=== PATIENT | female | born 1990 | race Caucasian/White ===

== ENCOUNTER 2020-12-16 13:50 | Emergency (ER) | payer OTHER, SELFPAY ==
[2020-12-16 13:51] VITALS: BP 105/74; PULSE 94; RESP 16; TEMP 36.7; O2SAT 97; BMI 20.9
--- NOTE | 2020-12-16 15:07 | EX.ED.VIS.EY ---
HPI History of Present Illness Chief Complaint: Vision Prob Narrative Narrative: Patient presenting for evaluation secondary to changes in the left eye. Patient states that today she has been having intermittent issues where she will have blurry vision, hazy vision, and complete loss of the vision in her left eye. These are nonpainful, the last for a couple of seconds at a time. Patient states that it does not have any sort of exacerbating relieving factors. She denies headache associated with it. No recent head or neck injury, no head or neck pain. She denies any neurologic signs or symptoms such as numbness, weakness, or speech difficulty. She denies any personal history of heart arrhythmias, bleeding issues or clotting issues. No skin rashes noted. Patient does report that she had a distant history of migraines but typically does not have an issue with these. She is never really had similar episodes in the past. She states that occasionally there will be a slight aura of flashing lights before this occurs. [facility] Medical History Migraines Social History Smoking Status: Never smoker ROS ROS ED Constitutional Constitutional ED: Denies chills or fever(s) Eyes Eyes: Reports change in vision; Denies diplopia ENT ENT ED: Denies rhinorrhea Cardiovascular Cardiovascular: Denies chest pain Respiratory/Chest Respiratory/Chest: Denies cough or dyspnea Gastrointestinal Gastrointestinal: Denies abdominal pain, diarrhea, nausea or vomiting Genitourinary Genitourinary ED: Denies dysuria or hematuria Musculoskeletal Musculoskeletal: Denies back pain Integumentary Denies rash Neurologic Neurologic: Denies paresthesias or weakness Psychiatric Psychiatric: Denies depression Endocrine Endocrinology: Denies fatigue Allergic/Immunologic Allergic/Immunologic ED: Denies urticaria EXAM Physical Exam Const Vital Signs: 12/16/20 13:51 Temperature 98.1 F Temperature Source Temporal Pulse Rate 94 Respiratory Rate 16 Blood Pressure 105/74 Blood Pressure Mean 84 Pulse Ox 97 Oxygen Delivery Method Room Air Positive well nourished and well developed General Appearance ED: well developed and NAD HEENT Reports moist mucous membranes HEENT Narrative: No carotid bruits noted Negative for trauma or tenderness Eyes EOMs intact bilaterally General Eye ED: Yes normal appearance of both eyes and normal light reflex Visual Acuity: acuity normal Visual Field: No peripheral vision loss, No central vision loss, No left visual field cut, No right visual field cut, No bitemporal visual field cut, No binasal visual field cut and No visual field cut by quadrant Alignment: alignment normal Periorbital: periorbital findings normal Eyelid: eyelids normal Conjunctiva: conjunctiva normal Sclera: sclera normal Cornea: cornea normal Pupil: PERRL EOM: Negative for EOM abnormal Direct Ophthalmoscopy: No papilledema, fundi normal bilaterally, anterior chamber normal and No photophobia Neck no lymphadenopathy, supple and no JVD Chest Wall inspection of chest normal Resp normal respiratory effort and clear to auscultation bilaterally Cardio regular rate, regular rhythm, no murmurs and peripheral pulses 2+ throughout GI normal to inspection, nondistended, normoactive bowel sounds, non-tender and no masses Palpation: soft Back/Spine normal to inspection Extremity normal to inspection General Extremety ED: Negative for tenderness Neuro oriented x3 and no sensory deficits noted Sensorium / Orientation: alert Motor Exam: strength 5/5 throughout Psych mental status grossly normal Skin no rashes or lesions noted MDM MDM MDM Narrative Medical decision making narrative: Patient presented secondary to vision changes. Ocular exam was found to be unremarkable. Patient does not have any temporal artery tenderness, she has a normal-appearing retina, she has normal visual de [place] paz. Patient does not seem to be at risk for amaurosis. This does not seem to be a presentation that would be consistent with a retinal vein or artery occlusion. Likewise the patient does not seem to have risk factors for paradoxical clots, temporal arteritis, retinal detachment or other serious etiology. I discussed patient's case with Dr. 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 Patient was given reassurance. Patient is from out of town, she states she will follow-up with an criminal research specialist closer to home. Patient was discharged in stable condition. Discharge Plan Triage Chief Complaint: Vision Prob ED Provider: Damian Manning Dx/Rx/DC Orders Clinical Impression: Ocular migraine Instructions: Headache Migraine Triggers Prevent Activity Restrictions/Additional Instructions: [facility] [phone] Followup this week Disposition Disposition: Home, Self Care Discharge Date/Time: 12/16/20 15:09
--- NOTE | 2020-12-16 15:08 | ED.RN ---
Pt walks out without receiving dc instructions
== END 2020-12-16 15:09 | disposition home or self-care (01) ==
LOC: ED 14:44
PROVIDERS: Emergency Provider Emergency Medicine
DX: G43.109 Migraine with aura, not intractable, without status migrainosus (principal)
CPT/HCPCS: 99282

== ENCOUNTER 2022-08-28 17:24 | Emergency (ER) | payer OTHER, SELFPAY ==
[2022-08-28 17:25] VITALS: BP 103/71; PULSE 98; RESP 16; TEMP 36.4; O2SAT 97; BMI 21.6
[2022-08-28] MEDS: 0.9% Normal Saline 1,000 ML 1000 ML IV (18:17)
[2022-08-28] MEDS: Ondansetron 4 MG/2 ML Vial IV (18:18)
[2022-08-28] MEDS: Metoclopramide 10 MG/2 ML Vial IV (18:18)
[2022-08-28 18:49] LABS: Absolute Lymphocyte Count 0.91 X10^3/uL (0.83-4.51); Basophil# 0.04 X10^3/uL; Basophil% 0.6 % (0-1); Eosinophil# 0.03 X10^3/uL; Eosinophils% 0.4 % (0-5); Hematocrit 41.7 % (37-47); Hemoglobin 14.2 g/dL (12.0-15.0); Lymphocyte # 0.91 X10^3/ul (0.83-4.51); Lymphocyte % 13.5 % (19-41); Mean Corp Hgb Conc 34.1 g/dL (32-36); Mean Corpuscular Hgb 32.2 pg (27.0-32.0); Mean Corpuscular Volume 94.6 fL (81-99); Mean Platelet Vol. 9.5 fl (6.2-12.0); Monocyte# 0.66 X10^3/uL; Monocyte% 9.8 % (0-10); NRBC Flagged by Analyzer 0 % (0-5); Neutrophil # 5.02 X10^3/uL (2.7-7.7); Neutrophil % 74.4 % (47-70); Platelet Count 234 K/mm3 (150-450); RBC Distribution Width CV 13.8 % (11.6-14.6); RBC Distribution Width SD 48.2 fl (35.1-43.9); Red Blood Count 4.41 M/mm3 (4.2-5.4); White Blood Count 6.8 K/mm3 (4.4-11.0)
--- NOTE | 2022-08-28 18:59 | EX.ED.DYSGE1 ---
HPI History of Present Illness Chief Complaint: Nausea/Vomiting/Diarrhea Informant: patient and parent Narrative Narrative: Patient is a 32-year-old female who is presenting to the ER today with chief complaint of nausea, vomiting, and loose stool for the past 3 days. Patient is 25 weeks . Patient is a G2, P1. Patient has no pelvic pain, no vaginal bleeding, no concerns about the baby. Patient's baby has still been moving very vigorously. Patient is having intermittent lightheaded dizziness, no vertigo. Patient feels dehydrated. Patient says he has not been able to hold on any liquids for the past 3 days. Patient has Zofran ODT at home that she has been using with no relief in the past few days. Patient not been able to hold any liquids today, and she took 2 Zofran this morning. Patient is here for dehydration. No other acute complaints. No headache, neck pain. No chest pain or shortness of breath. Patient's became sick on Friday as well with this patient. No other sick contacts the patient is aware of. [facility] Medical History Migraines Home Medications cephalexin 500 mg capsule 500 mg PO Q12 #10 CAPSULES 08/28/22 [Rx Last Taken Unknown] ondansetron 4 mg disintegrating tablet 4 mg PO Q8H PRN PRN Nausea #10 tabs 08/28/22 [Rx Last Taken Unknown] promethazine 25 mg rectal suppository 25 mg DC Q6H #6 ea 08/28/22 [Rx Last Taken Unknown] Allergy/AdvReac Type Severity Reaction Status Date / Time No Known Allergies Allergy Verified 08/28/22 17:26 Social History Smoking Status: Never smoker ROS ROS ED ROS Narrative REVIEW OF SYSTEMS: Unless otherwise stated in this report the patient's positive and negative responses for review of systems for constitutional, eyes, ENT, cardiovascular, respiratory, gastrointestinal, neurological, , musculoskeletal, and integument systems and related systems to the presenting problem are either stated in the history of present illness or were not pertinent or were negative for the symptoms and/or complaints related to the presenting medical problem. EXAM Physical Exam Narrative Exam Narrative: Vital signs reviewed and patient is not hypoxic. General: The patient appears well and in no apparent distress. Patient is resting comfortably on cart. Not toxic, lethargic, or listless. Skin: Warm, dry, no pallor noted. There is no rash noted. Head: Normocephalic, atraumatic Eye: Normal conjunctiva, no drainage, EOMI. PERRL. Ears, Nose, Mouth, and Throat: oral mucosa is moist. Nares patent. Mouth without vesicles. Ear canals patent. Tm's without Erythema Cardiovascular: Regular Rate and Rhythm, no murmurs, gallops, or rubs Respiratory: Patient is in no distress, no accessory muscle use, lungs are clear to auscultation, no wheezing, rales or rhonchi Back: non-tender, no CVA tenderness bilaterally to percussion. NO CTLS midline or paracervicl tenderness to palpation. GI: Soft, patient has gravid uterus, states she is approximately 25 weeks . No tenderness to palpation to abdomen, no flank pain bilateral, no suprapubic tenderness to palpation, otherwise no tenderness to palpation, no masses appreciated. No rebound, guarding, or rigidity noted. Musculoskeletal: The patient has full range of motion of all extremities and joints with no difficulty. Patient has no motor, no sensory deficits. Neurological: A&O x4, normal speech, no focal neurological deficits. Psychiatric: Cooperative Const Vital Signs: 08/28/22 17:25 Temperature 97.5 F L Temperature Source Temporal Pulse Rate 98 Respiratory Rate 16 Blood Pressure 103/71 Blood Pressure Mean 81 Pulse Ox 97 Oxygen Delivery Method Room Air [facility] Lab Data Labs: Laboratory Results - last 24 hr 08/28/22 08/28/22 08/28/22 18:15 18:15 19:30 WBC 6.8 RBC 4.41 Hgb 14.2 Hct 41.7 MCV 94.6 MCH 32.2 H MCHC 34.1 RDW Std Deviation 48.2 H RDW Coeff of Haresh 13.8 Plt Count 234 MPV 9.5 Immature Gran % (Auto) 1.300 H Neut % (Auto) 74.4 H Lymph % (Auto) 13.5 L [place] % (Auto) 9.8 Eos % (Auto) 0.4 Baso % (Auto) 0.6 Absolute Neuts (auto) 5.0 Absolute Lymphs (auto) 0.91 Nucleated RBC % 0 Sodium 138 Potassium 3.5 Chloride 107 Carbon Dioxide 21.0 Anion Gap 10 BUN 16 Creatinine 0.62 Estim Creat Clear Calc 109.75 Est GFR (MDRD) Af Amer 147 Est GFR (MDRD) Non-Af 121 BUN/Creatinine Ratio 26.0 H Glucose 79 Calcium 8.5 Total Bilirubin 0.40 AST 16 ALT 16 Alkaline Phosphatase 65 Total Protein 6.2 L Albumin 2.6 L Globulin 3.6 Albumin/Globulin Ratio 0.7 L Lipase 91 Urine Color Yellow Urine Clarity Clear Urine pH 6.0 Ur Specific [place] 1.025 Urine Protein 30 H Urine Glucose (UA) Normal Urine Ketones 150 A* Urine Occult Blood 10 H Urine Nitrite Negative Urine Bilirubin 1 H Urine Urobilinogen 1 H Ur Leukocyte Esterase 25 H Urine RBC 0-5 SEEN Urine WBC 5-10 SEEN Ur Squamous Epith Cells 5-10 SEEN Urine Bacteria 1+ Urine Mucus 0 SEEN Differential Diagnosis Abdominal Pain: UTI Differential Diagnosis: Nausea, vomiting, diarrhea, flulike symptoms, UTI, Treatment and Re-Evaluation Comments:: Patient was given 1 L of IV fluids. Patient was given IV Zofran 4 mg and IV Reglan 10 mg. Patient has CBC, CMP and lipase along with urine done. Patient has been able to hold ice chips and and feels better after IV fluids and medication. Patient's urine has bacteria, epithelial cells, along with dehydration and proteinuria. Patient will be placed on a 5-day course of Keflex, urine culture is ordered. Patient felt better after 1 L of IV fluids, she was given a second liter of IV fluids secondary to the ketones in her urine. Patient will be sent home with Phenergan suppositories to use as needed to help with nausea along with refill of her Zofran ODT. Patient be sent home with 5 days of Keflex prescription. Patient will follow-up with OB if any other acute concerns. No questions at discharge. Mother's been at bedside Discharge Plan Triage Chief Complaint: Nausea/Vomiting/Diarrhea ED Provider: Lucas Ferris Dx/Rx/DC Orders Clinical Impression: Nausea and vomiting, Diarrhea, , Dehydration, mild, UTI (urinary tract infection) Instructions: ED Diet Vomiting Diarrhea, ED Vomiting and Diarrhea ... Prescriptions: New promethazine 25 mg suppository 25 mg DC Q6H Qty: 6 0RF ondansetron 4 mg tablet,disintegrating 4 mg PO Q8H PRN PRN (Reason: Nausea) Qty: 10 0RF cephalexin [cephalexin] 500 mg capsule 500 mg PO Q12 Qty: 10 0RF Primary Care Provider: Care Physician,No Primary Referrals: Care Physician,No Primary [Primary Care Provider] - Activity Restrictions/Additional Instructions: Increase fluids at home. Use Keflex for the next 5 days. Use Zofran ODT as needed, also Phenergan suppositories could be used along with Zofran if needed. Increase Gatorade or Powerade. Increase water. Follow-up with PLANT OPERATIONS MANAGER. Disposition Disposition: Home, Self Care
[2022-08-28 19:10] LABS: ALB/GLOB Ratio 0.7 RATIO (0.9-2.4); AST(SGOT) 16 U/L (15-37); Alanine Aminotransfer ALT/SGPT 16 U/L (13-56); Albumin, Serum 2.6 g/dL (3.2-5.0); Alkaline Phosphatase 65 U/L (45-117); Anion Gap 10 (5-15); BUN 16 mg/dL (7-18); Calcium,Total 8.5 mg/dL (8.5-10.1); Chloride 107 mmol/L (98-107); Creatinine, Serum 0.62 mg/dL (0.55-1.02); EST Glomerular Filtration Rate 121 mL/min (>60); Est Glom Filt Rate - Afr Amer 147 mL/min (>60); Estimated Creatinine Clearance 109.75 ml/min; Globulin 3.6 g/dL (2.2-4.2); Glucose 79 mg/dL (74-106); Lipase 91 U/L (73-393); Potassium 3.5 mmol/L (3.5-5.1); Protein, Total 6.2 g/dL (6.4-8.2); Sodium Level 138 mmol/L (136-145)
[2022-08-28 19:36] LABS: Mucous, Urine 0 SEEN /hpf (<or=2+)
[2022-08-28] MEDS: 0.9% Normal Saline 1,000 ML 999 ML IV (19:37)
[2022-08-28 19:40] LABS: Color, Urine Yellow (Yellow); Glucose, Dipstick Normal (Normal); Leukocyte Esterase-Dipstick 25 /ul (Negative); Nitrite-Dipstick Negative (Negative); Occult Blood-Urine 10 /ul (Negative); Protein-Dipstick 30 mg/dl (Negative); Specific Gravity, Urine 1.025 (1.002-1.030); Urine Clarity Clear (Clear); Urine Urobilinogen 1 mg/dl (Normal)
[2022-08-28 19:48] LABS: Urine Bilirubin Dipstick 1 mg/dL (Negative)
[2022-08-28 19:50] LABS: Ketone-Dipstick 150 mg/dl (Negative); Squamous Epithelial Cells - UA 5-10 SEEN /hpf (5-10)
[2022-08-28 19:51] LABS: Bacteria 1+ /hpf (None Seen); Red Blood Cells-Urine 0-5 SEEN /hpf (0-5); White Blood Cells 5-10 SEEN /hpf (0-5)
--- NOTE | 2022-08-28 20:08 | CM.ED ---
Social Work Note Referral Source: case find Referral Reason: no PCP SW met with patient and patient's guest and introduced herself and role as [facility] Technology Support Analyst. Patient agreed to speak with social work with patient's guest present. SW inquired about patient's insurance and current PCP. Patient verified insurance and reports no current PCP. SW provided patient with a list of PCPs accepting new patients in network with patient's insurance within 20 miles from her home. Patient was receptive towards list and reports no other needs. SW remains available if needs arise. Shamika Virk DESKTOP PUBLISHER, JAMILA
[2022-08-28 20:30] VITALS: BP 110/78; PULSE 67; RESP 17; O2SAT 100
== END 2022-08-28 20:31 | disposition home or self-care (01) ==
PROVIDERS: Emergency Provider Emergency Medicine; Visit Provider Emergency Medicine
DX: O21.9 Vomiting of pregnancy, unspecified (principal); Z3A.25 25 weeks gestation of pregnancy; O99.282 Endocrine, nutritional and metabolic diseases complicating pregnancy, second trimester; E86.0 Dehydration; R19.7 Diarrhea, unspecified; O23.42 Unspecified infection of urinary tract in pregnancy, second trimester; O99.891 Other specified diseases and conditions complicating pregnancy
CPT/HCPCS: 80053; 81001; 83690; 85025; 87086; 87088; 96361; 96374; 96375; 99283; J7030; J2405

== ENCOUNTER 2022-12-19 07:08 | Inpatient (IN) | payer OTHER, SELFPAY ==
[2022-12-19] VITALS (20 sets, daily range): BP systolic 85–112; BP diastolic 47–65; PULSE 60–96; RESP 16; TEMP 36.7–37.4; O2SAT 95–100; BMI 25.4
[2022-12-19] MEDS: Lactated Ringers 1,000 ML 50 ML IV (07:54)
[2022-12-19] MEDS: Oxytocin 15 Units/NS 250ml 15 UNITS/250 ML IV.SOLN 2 UNITS IV (07:55)
[2022-12-19 08:10] LABS: Absolute Lymphocyte Count 1.56 X10^3/uL (0.83-4.51); Absolute Neutrophil Count 8.6 X10^3/uL (2.0-7.7); Basophil# 0.05 X10^3/uL; Basophil% 0.4 % (0-1); Eosinophil# 0.16 X10^3/uL; Eosinophils% 1.4 % (0-5); Hematocrit 36.6 % (37-47); Hemoglobin 12.2 g/dL (12.0-15.0); Lymphocyte # 1.56 X10^3/ul (0.83-4.51); Lymphocyte % 13.5 % (19-41); Mean Corp Hgb Conc 33.3 g/dL (32-36); Mean Corpuscular Hgb 31.8 pg (27.0-32.0); Mean Corpuscular Volume 95.3 fL (81-99); Mean Platelet Vol. 10.6 fl (6.2-12.0); Monocyte# 1.01 X10^3/uL; Monocyte% 8.7 % (0-10); NRBC Flagged by Analyzer 0 % (0-5); Neutrophil # 8.64 X10^3/uL (2.7-7.7); Neutrophil % 74.6 % (47-70); Platelet Count 202 K/mm3 (150-450); RBC Distribution Width CV 13.5 % (11.6-14.6); RBC Distribution Width SD 46.5 fl (35.1-43.9); Red Blood Count 3.84 M/mm3 (4.2-5.4); White Blood Count 11.6 K/mm3 (4.4-11.0)
--- NOTE | 2022-12-19 08:35 | PCM.HP.OB ---
HPI - General General Date of Admission: 12/19/22 HPI Narrative CATHY BALLESTEROS, is a 32 F who presents for induction. Maternal Data Information Final DEAN: 12/11/22 Gestational age: 41&1 PFSH PFSH Medical History (Updated 12/19/22 @ 08:[address] Brijesh Biswas MD) Anxiety History of hypothyroidism Migraines PCOS (polycystic ovarian syndrome) Medical History no medical history Home Medications cephalexin 500 mg capsule 500 mg PO Q12 no longer taking #10 CAPSULES 08/28/22 [Rx Last Taken Unknown] ondansetron 4 mg disintegrating tablet 4 mg PO Q8H PRN PRN Nausea #10 tabs 08/28/22 [Rx Last Taken Unknown] promethazine 25 mg rectal suppository 25 mg [place] Q6H no longer taking #6 ea 08/28/22 [Rx Last Taken Unknown] Allergy/AdvReac Type Severity Reaction Status Date / Time No Known Allergies Allergy Verified 12/19/22 07:47 Surgical History (Updated 12/19/22 @ 08:[address] Brijesh Biswas MD) History of cholecystectomy Social History Smoking Status: Never smoker History Elective abortions Hx Para 1 Spontaneous abortions Hx # Term Pregnancies Ectopic pregnancies Hx # Pregnancies Multiple births # of living children NST FHR Rate Baby A Baseline: 140 Variability:: Moderate Accelerations:: 15 x 15 Decelerations:: Late (only one) Uterine Activity:: none Vital Signs Vital Signs Vital Signs: 12/19/22 07:40 12/19/22 07:40 12/19/22 07:40 Temperature Temperature Source Temporal Pulse Rate 93 Blood Pressure 99/59 L BP Systolic 99 BP Diastolic 59 12/19/22 07:40 Temperature 98.6 F Temperature Source Pulse Rate Blood Pressure BP Systolic BP Diastolic Weight Weight: 143 lb 4.807 oz Body Mass Index (BMI) 25.4 Physical Exam Const alert, oriented x3 and no apparent distress Chest inspection of chest normal GI soft to palpation, non-tender and non-distended Inspection: gravid external exam normal Narrative: cvx - 4/70/-2, AROM blood tinged fluid Labs Labs Labs: Blood Type Pending Antibody Screen Pending Hct 36.6 % (37-47) L Hgb 12.2 g/dL (12.0-15.0) Syphilis Total Ab Non-reactive See [facility] H&P Assessment & Plan (1) Post term , 41 weeks: COMMENT: @ 41&1 PLAN: Plan Admit to L&D Induction - on pitocin & s/p AROM Pain - epidural as desired GBS negative EFW - less than 4500g, patient with adequate pelvis
[2022-12-19 08:44] LABS: Syphilis Antibodies Non-reactive
[2022-12-19] MEDS: Ondansetron 4 MG/2 ML Vial IV (09:45)
[2022-12-19] MEDS: LACTATED RINGERS 500 ML 999 ML IV (11:08)
--- NOTE | 2022-12-19 11:18 | EX.PCM.OBRPT ---
Maternal Data Information Final DEAN: 12/11/22 Gestational age: 41&1 Vaginal Delivery Maternal Presentation Maternal Presentation: Medically Indicated Induction Type of Induction: Pitocin and Amniotomy Medical Reason for Induction: Post term Operative Information Date of Procedure: 12/19/22 Pre-Operative Diagnosis: Post term Post-Operative Diagnosis: Same Surgery / Procedure Performed: Spontaneous Vaginal Delivery Type of Anesthesia: Local with 1% Lidocaine Estimated Blood Loss: 300ml Findings Description of Procedure: Patient prepped & draped when C/C/+2. She pushed well to deliver the head. head gently guided to allow delivery of anterior and posterior shoulders. No excess traction placed on head. Body delivered and 3VC clamped & cut in delayed fashion. Placenta delivered with gentle traction and good uterine tone obtained. Presentation: ATA Amniotic Membrane Rupture Type: Artificial Amniotic Fluid Description: Clear Placental Delivery Description: Expressed Placenta Disposition: [facility] Specimen(s) Removed: Placenta Cord Vessel Description: 3 Vessels Cord Entanglement: Around neck x 1, loose Nuchal Cord Compression: Without compression Infant A Gender: Male (1 minute): 7 (5 minute): 9 Delayed Cord Clamping: Yes Post Vaginal Delivery Medications Given After Delivery: IV Pitocin Episiotomy Description: None Laceration: 2nd degree (perineal - repaired with 3-0 vicryl) Complication Complications: None
[2022-12-19] MEDS: Lidocaine 1% (20 ml mdv) 20 ML Vial INFILT (11:58)
[2022-12-19] MEDS: Oxytocin 15 Units/NS 250ml 15 UNITS/250 ML IV.SOLN 83 UNITS IV (12:20)
[2022-12-19] MEDS: Ibuprofen 600 MG Tablet PO ×2 (13:41→21:43)
[2022-12-19] MEDS: 0.9% Saline Lock 10 ML Syringe IV (16:11)
[2022-12-20 04:10] VITALS: BP 98/56; PULSE 77; RESP 16; TEMP 36.4
[2022-12-20] MEDS: Acetaminophen 500 MG Tablet 1000 MG PO (04:43)
--- NOTE | 2022-12-20 07:53 | PCM.PN.OB ---
Subjective Subjective Patient is doing well without complaints. She is ambulating and voiding without difficulty. She is tolerating regular diet. Lochia is normal. She denies lightheadedness, dizziness, chest pain, shortness of breath, leg pain. She desires to go home today. Objective Data Objective Data Vital Signs: Vital Signs Temp Pulse Resp BP Pulse Ox O2 Del Method 97.6 F L 77 16 98/56 L 100 Room Air 12/20/22 04:10 12/20/22 04:10 12/20/22 04:10 12/20/22 04:10 12/19/22 23:35 12/20/22 04:10 Oxygen Delivery Method Room Air Weight: 143 lb 4.807 oz Body Mass Index (BMI) 25.4 Intake & Output: Intake and Output for Last 24 Hours 12/18/22 12/19/22 12/20/22 23:59 23:59 23:59 Intake Total 1267.11 / 1267.11 Output Total 700 / 700 Balance 567.11 / 567.11 Lab / Micro Data 12/19/22 07:45 Labs: Laboratory Results - last 24 hr 12/19/22 07:45: WBC 11.6 H, RBC 3.84 L, Hgb 12.2, Hct 36.6 L, MCV 95.3, MCH 31.8, MCHC 33.3, RDW Std Deviation 46.5 H, RDW Coeff of Haresh 13.5, Plt Count 202, MPV 10.6, Immature Gran % (Auto) 1.400 H, Neut % (Auto) 74.6 H, Lymph % (Auto) 13.5 L, [place] % (Auto) 8.7, Eos % (Auto) 1.4, Baso % (Auto) 0.4, Absolute Neuts (auto) 8.6 H, Absolute Lymphs (auto) 1.56, Nucleated RBC % 0, Syphilis Total Ab Non-reactive, Blood Type O POSITIVE, Antibody Screen NEGATIVE Physical Exam Const alert and no apparent distress General Appearance: comfortable Assessment & Plan (1) Vaginal delivery: PLAN: Patient is day 1 from a vaginal delivery. She is doing well and meeting milestones for discharge. She requests to go home today.
--- NOTE | 2022-12-20 07:56 | DCINST_ITS ---
Discharge Instructions Diet Discharge Diet: No restrictions Activity Discharge Activity: May Shower May resume sexual activity in: 6 weeks Weight Bearing Status: Weight bearing as tolerated Lifting Restrictions: nothing heavier than baby Dressing / Incision Call your doctor if you observe: Fever of 101 or Higher, Coldness, Increased Pain, Numbness or Tingling, Change in Color, Inability to urinate, Inability to have a bowel movement, Using more than 1 pad per hour, Shortness of breath, Dizziness, Fainting spells, Swelling in the ankles, Chest pain, Increased palpitations (irregular heartbeat), Calf discomfort and Uncontrolled pain Follow Up Care When: 1-2 weeks early 6 week exam Test Results: Test results from this visit will be discussed in further detail at your follow- up appointment, if applicable. Discharge Plan Admission Admit Date/Time: 12/19/22 07:08 Primary Reason for Your Visit: delivery Attending Provider: Brijesh Biswas Primary Care Provider: Geetha Marks Primary Instructions Patient Instructions: After a Vaginal Discharge Orders/Prescriptions Prescriptions: Discontinued promethazine 25 mg suppository 25 mg [place] Q6H Qty: 6 0RF ondansetron 4 mg tablet,disintegrating 4 mg PO Q8H PRN PRN (Reason: Nausea) Qty: 10 0RF cephalexin [cephalexin] 500 mg capsule 500 mg PO Q12 Qty: 10 0RF Referrals / Follow Up: Care Physician,Geetha Primary [Primary Care Provider] - Disposition Disposition (needs filled in before D/C Order can be placed): Home, Self Care
[2022-12-20 10:20] VITALS: BP 95/43; PULSE 90; RESP 16; TEMP 36.8
[2022-12-20 14:30] VITALS: BP 98/53; PULSE 80; RESP 16; TEMP 37.2; O2SAT 96
--- NOTE | 2022-12-20 16:18 | CASEMGMT ---
Social Work Labor and Delivery Unit ? Summary:?Sw consult received due to maternal history of anxiety. - Sw presented to bedside and introduced self to mother of baby (MOB- Ramona) and father of baby (FOB- Claus). - Parents report they are , they have been together for 12 years, they met while working together at [employer]. - Lamar baby, Héctor Weller, is second child to both parents. MOB delivered baby via vaginal delivery. MOB states that delivery went well and they are hoping that she and baby will be ready for discharge sometime today. - MOB states that they have all the necessary supplies that they need for baby incuding: crib, car seat, clothes, diapers and wipes. - Sw asked FOB to leave so sw could discuss mental health history and assess for safety. FOB left respectfully. - MOB completed [place] depression screen, her score was a 6. Sw provdied support and education. Sw provided MOB with list of counseling agencies local to her and encouraged MOB to get connected should symptoms of baby blues/ depression get worse. MOB expressed understanding and agreement. While meeting with MOB privately, MOB stated that she is safe at home, denied concerns of domestic violence or intimate partner violence. - Sw provided education on shaken baby prevention and ABCs of safe sleep. ? Assessment:??Parents receptive to sw involvement and support. Parents have good support system in place at this time. MOB states that she is feeling ok, but is receptive to getting connected to community mental health supports if necessary. ? Intervention:?Education, resources and supports provided. ? Plan:??MOB and baby to be discharged when medically ready. ? No other services requested or indicated. Mina Patino, FISH FROG OR OYSTER FARMER, MANAGER THERAPY
== END 2022-12-20 16:55 | disposition home or self-care (01) | DRG 807 ==
PROVIDERS: Obstetrics & Gynecology; Admitting Provider Obstetrics & Gynecology; Referring Provider Obstetrics & Gynecology; Visit Provider Obstetrics & Gynecology
DX: O48.0 Post-term pregnancy (principal); Z37.0 Single live birth; O69.81X0 Labor and delivery complicated by cord around neck, without compression, not applicable or unspecified; Z3A.41 41 weeks gestation of pregnancy
CPT/HCPCS: 59025; 59050; 85025; 86780; 86850; 86900; 86901; 99221; J7120; A4216; G0378; J2405

== ENCOUNTER 2024-07-17 12:37 | Emergency (ER) | payer OTHER, SELFPAY ==
[2024-07-17 12:38] VITALS: BP 119/78; PULSE 90; RESP 16; TEMP 36.8; O2SAT 98; BMI 21.2
--- NOTE | 2024-07-17 12:58 | EDS_ITS ---
HPI History of Present Illness Chief Complaint: Nausea/Vomiting Informant: patient and spouse/S.O. Narrative Narrative: 34-year-old female presenting to the emergency room with vomiting. Patient states that she is about 6 weeks . She has an appointment on Friday with Dr. Castro for obstetrics. She is G 3P2. She states she had hyperemesis with #1. She states that earlier this week she called and they put her on folic acid Pepcid and Reglan. She states she stopped the folic acid and Pepcid because it was upsetting her stomach. She denies any current pain. No vaginal bleeding. She notes decreased urination. She states she continues to vomit all times of the day. She states that she was advised that if she continues to vomit that she should come to emergency. [facility] Medical History Vaginal delivery PCOS (polycystic ovarian syndrome) Anxiety History of hypothyroidism Migraines Home Medications ?Medication ?Instructions ?Recorded ?Last Taken ?Type promethazine 25 mg tablet 25 mg PO TID PRN nausea and 07/17/24 Unknown Rx vomiting #20 tabs Allergy/AdvReac Type Severity Reaction Status Date / Time No Known Allergies Allergy Verified 07/17/24 12:39 Surgical History History of cholecystectomy Social History Smoking Status: Never smoker [facility] [place] ED Constitutional Constitutional ED: Denies chills, fever(s) or weight loss Eyes Eyes: Denies change in vision or diplopia ENT ENT ED: Denies ear pain, rhinorrhea or sore throat Cardiovascular Cardiovascular: Denies chest pain, orthopnea, palpitations or racing heartbeat Respiratory/Chest Respiratory/Chest: Denies cough, dyspnea or orthopnea Gastrointestinal Gastrointestinal: Reports nausea and vomiting; Denies abdominal pain or diarrhea Genitourinary Genitourinary ED: Reports other Details: Decreased urination ; Denies dysuria, hematuria or urinary frequency Musculoskeletal Musculoskeletal: Denies arthralgias or myalgias Integumentary Denies abscess or rash Neurologic Neurologic: Denies headache(s) or weakness Psychiatric Psychiatric: Denies anxiety, depression, suicidal ideation or suicidal thoughts Endocrine Endocrinology: Denies polydipsia, polyphagia or polyuria Allergic/Immunologic Allergic/Immunologic ED: Denies mouth swelling, tongue swelling or urticaria EXAM Physical Exam Const Vital Signs: 07/17/24 12:38 Temperature 98.2 F Temperature Source Oral Pulse Rate 90 Respiratory Rate 16 Blood Pressure 119/78 Blood Pressure Mean 91 Pulse Ox 98 Oxygen Delivery Method Room Air Positive well nourished and well developed General Appearance ED: well developed and NAD HEENT Reports normocephalic, head/scalp atraumatic and moist mucous membranes Eyes PERRL and EOMs intact bilaterally Neck no lymphadenopathy, supple and no JVD Resp normal respiratory effort and clear to auscultation bilaterally Cardio regular rate, regular rhythm and no murmurs GI normal to inspection, nondistended, normoactive bowel sounds and non-tender Palpation: soft Back/Spine no CVA tenderness and normal ROM Extremity normal to inspection General Extremety ED: Negative for edema General Extremity: Negative for edema Neuro oriented x3 and CN's II-XII intact bilaterally Sensorium / Orientation: alert Motor Exam: strength 5/5 throughout Psych mental status grossly normal Mood & Affect: Negative for depressed or tearful Skin no rashes or lesions noted and no wounds MDM MDM MDM Narrative Medical decision making narrative: Differential diagnosis includes but not limited viral syndrome hyperemesis gravidarum dehydration electrolyte abnormality acute kidney injury White count 12.4 hemoglobin is 14.8 BMP shows normal BUN creatinine anion gap is 8 CO2 level is 25. Normal LFTs lipase 25 urinalysis demonstrates 150 ketones 30 protein no overt infection. Patient received IV fluids. I spoke with on-call obstetrics for Dr. Castro. They recommended Phenergan. Patient states that this did seem to help center of her stomach. She is trying a popsicle. History & Record Review Discussion w/independent historian: Patient Lab Data Attestation: I reviewed the patient's lab results. Labs: Laboratory Results - last 24 hr 07/17/24 13:05 WBC 12.4 H RBC 4.92 Hgb 14.8 Hct 43.1 MCV 87.6 MCH 30.1 MCHC 34.3 RDW Std Deviation 40.0 RDW Coeff of Haresh 12.4 Plt Count 211 MPV 9.9 Immature Gran % (Auto) 0.600 Neut % (Auto) 82.2 H Lymph % (Auto) 9.6 L [place] % (Auto) 6.3 Eos % (Auto) 1.0 Baso % (Auto) 0.3 Absolute Neuts (auto) 10.2 H Absolute Lymphs (auto) 1.19 Nucleated RBC % 0 Sodium 136 Potassium 3.4 L Chloride 102 Carbon Dioxide 25.0 Anion Gap 8 BUN 18 Creatinine 0.75 Estim Creat Clear Calc 89.08 Est GFR (MDRD) Af Amer 116 Est GFR (MDRD) Non-Af 95 BUN/Creatinine Ratio 24.1 H Glucose 81 Calcium 9.6 Total Bilirubin 0.90 Direct Bilirubin 0.28 AST 18 ALT 24 Alkaline Phosphatase 63 Total Protein 7.8 Albumin 3.7 Globulin 4.1 Lipase 25 L HCG, Quant 580312 H Urine Color Yellow Urine Clarity Sl. Cloudy Urine pH 6.0 Ur Specific [place] 1.025 Urine Protein 30 H Urine Glucose (UA) Normal Urine Ketones 150 A* Urine Occult Blood 10 H Urine Nitrite Negative Urine Bilirubin 1 H Urine Urobilinogen 4 H Ur Leukocyte Esterase 100 H Urine RBC 0 SEEN Urine WBC 0-5 SEEN Ur Squamous Epith Cells 0-5 SEEN Urine Bacteria 0 SEEN Urine Mucus 3+ Discharge Plan Triage Chief Complaint: Nausea/Vomiting ED Provider: Maxim Francisco Dx/Rx/DC Orders Clinical Impression: Hyperemesis gravidarum Instructions: Hyperemesis Gravidarum Prescriptions: New promethazine 25 mg tablet 25 mg PO TID PRN (Reason: nausea and vomiting) Qty: 20 0RF Primary Care Provider: Care Physician,No Primary Referrals: Rashmi Castro DO [Med Staff - Active Staff] - Keep Gavino appointment Care Physician,No Primary [Primary Care Provider] - Print Language: Green[place]ic
[2024-07-17] MEDS: 0.9% Normal Saline (1000mL) 1,000 ML 1000 ML IV (13:11)
[2024-07-17] MEDS: proMETHazine 25 MG Tablet PO (13:12)
[2024-07-17 13:18] LABS: Bacteria 0 SEEN /hpf (None Seen)
[2024-07-17 13:21] LABS: Color, Urine Yellow (Yellow); Glucose, Dipstick Normal (Normal); Leukocyte Esterase-Dipstick 100 /ul (Negative); Nitrite-Dipstick Negative (Negative); Occult Blood-Urine 10 /ul (Negative); Protein-Dipstick 30 mg/dl (Negative); Specific Gravity, Urine 1.025 (1.002-1.030); Urine Clarity Sl. Cloudy (Clear); Urine Urobilinogen 4 mg/dl (Normal)
[2024-07-17 13:22] LABS: Absolute Lymphocyte Count 1.19 X10^3/uL (0.83-4.51); Absolute Neutrophil Count 10.2 X10^3/uL (2.0-7.7); Basophil# 0.04 X10^3/uL; Basophil% 0.3 % (0-1); Eosinophil# 0.12 X10^3/uL; Hematocrit 43.1 % (37-47); Hemoglobin 14.8 g/dL (12.0-15.0); Lymphocyte # 1.19 X10^3/ul (0.83-4.51); Lymphocyte % 9.6 % (19-41); Mean Corp Hgb Conc 34.3 g/dL (32-36); Mean Corpuscular Hgb 30.1 pg (27.0-32.0); Mean Corpuscular Volume 87.6 fL (81-99); Mean Platelet Vol. 9.9 fl (6.2-12.0); Monocyte# 0.78 X10^3/uL; Monocyte% 6.3 % (0-10); NRBC Flagged by Analyzer 0 % (0-5); Neutrophil # 10.17 X10^3/uL (2.7-7.7); Neutrophil % 82.2 % (47-70); Platelet Count 211 K/mm3 (150-450); RBC Distribution Width CV 12.4 % (11.6-14.6); Red Blood Count 4.92 M/mm3 (4.2-5.4); Urine Bilirubin Dipstick 1 mg/dL (Negative); White Blood Count 12.4 K/mm3 (4.4-11.0)
[2024-07-17 13:23] LABS: Ketone-Dipstick 150 mg/dl (Negative)
[2024-07-17 13:27] LABS: Mucous, Urine 3+ /hpf (<or=2+); Squamous Epithelial Cells - UA 0-5 SEEN /hpf (5-10)
[2024-07-17 13:28] LABS: Red Blood Cells-Urine 0 SEEN /hpf (0-5); White Blood Cells 0-5 SEEN /hpf (0-5)
[2024-07-17 13:53] LABS: AST(SGOT) 18 U/L (15-37); Alanine Aminotransfer ALT/SGPT 24 U/L (13-56); Albumin, Serum 3.7 g/dL (3.2-5.0); Alkaline Phosphatase 63 U/L (45-117); Anion Gap 8 (5-15); BUN 18 mg/dL (7-18); BUN/Creat Ratio 24.1 RATIO (10-20); Bilirubin, Direct 0.28 mg/dL (0.00-0.30); Calcium,Total 9.6 mg/dL (8.5-10.1); Chloride 102 mmol/L (98-107); Creatinine, Serum 0.75 mg/dL (0.55-1.02); EST Glomerular Filtration Rate 95 mL/min (>60); Est Glom Filt Rate - Afr Amer 116 mL/min (>60); Estimated Creatinine Clearance 89.08 ml/min; Globulin 4.1 g/dL (2.2-4.2); Glucose 81 mg/dL (74-106); Lipase 25 U/L (73-393); Potassium 3.4 mmol/L (3.5-5.1); Protein, Total 7.8 g/dL (6.4-8.2); Sodium Level 136 mmol/L (136-145)
[2024-07-17 14:07] LABS: hCG Titer Quant., Serum 148061 mIU/mL (1-3)
== END 2024-07-17 14:58 | disposition home or self-care (01) ==
PROVIDERS: Emergency Provider Emergency Medicine; Visit Provider Emergency Medicine
DX: O21.0 Mild hyperemesis gravidarum (principal); Z3A.01 Less than 8 weeks gestation of pregnancy; Z90.49 Acquired absence of other specified parts of digestive tract
CPT/HCPCS: 80048; 80076; 81001; 83690; 84702; 85025; 96360; 99283; A4216

== ENCOUNTER 2025-02-20 02:00 | Inpatient (IN) | payer OTHER, SELFPAY ==
--- OUTSIDE RECORDS SUMMARY | 2025-02-19 23:12 | XMS RPT_ITS | CCD ---
Author Organization [facility] Care Team Providers Care Intelligence Support Officer Name Role Phone KALYAN, PAULETTE B Unavailable Unavailable KALYAN, PAULETTE B Unavailable Unavailable KALYAN, PAULETTE B Unavailable Unavailable KALYAN, PAULETTE B Unavailable Unavailable KALYAN, PAULETTE B Unavailable Unavailable KALYAN, PAULETTE B Unavailable Unavailable Sulove, Saksham Unavailable Unavailable KALYAN, PAULETTE B Unavailable Unavailable KALYAN, PAULETTE B Unavailable Unavailable KALYAN, PAULETTE B Unavailable Unavailable KALYAN, PAULETTE B Unavailable Unavailable Ana Boateng Unavailable Unavailable Unavailable Frida Lieberman Unavailable Unavailable Unavailable Unavailable Unavailable None, No PCP Unavailable Unavailable Ana Boateng CNP Primary Care Provider [phone] Ana Boateng CNP Primary Care Provider [phone] Ana Boateng CNP Primary Care Provider Generic Provider MD, No Assigned Pcp Primary Car e Provider Unavailable [facility] Attending Unavailable GENERIC PROVIDER, NO ASSIGNED PCP Primary Care Unavailable Maxim Francisco Attending Unavailable Care Physician, No Primary Primary Care Unava ilAlfredo Verma MD Primary Care Provider Podlogar SITE CONTROLLER.Jeannie HUDSON Unavailable Ana Boateng CNP Primary Care Provider Podlogar SITE CONTROLLER.Jeannie HUDSON Unavailable Ahmet SITE CONTROLLER.Jasmina HUDSON Unavailable Ahmet SITE CONTROLLER.Jasmina HUDSON Unavailable BURSLEY, CHRISTOPHER B Primary Care Unavailab ETHEL Danielson Attending Unavailable BURSLEY, CHRISTOPHER B Primary Care Unavailab KAROLINE Finch Attending Unavailable BURSLEY, CHRISTOPHER B Primary Care Unavailab le IFEANYI ETHEL Referring Unavailable BOATENG, ANA Primary Care Unavailable ETHEL RUIZ Attending Unavailable BURSLEY, CHRISTOPHER B Primary Care Unavailab JENNY Herman Attending Unavailable BURSLEY, CHRISTOPHER B Primary Care Unavailab YUMIKO Mason Attending Unavailable BOATENG, ANA Primary Care Unavailable RUIZ ETHEL Referring Unavailable BURSLEY, CHRISTOPHER B Primary Care Unavailab le JESSY, MARIELLE Referring Unavailable BURSLEY, CHRISTOPHER B Primary Care Unavailab ANA Odell Attending Unavailable BURSLEY, CHRISTOPHER B Primary Care Unavailab YUMIKO Mason Attending Unavailable BURSLEY, CHRISTOPHER B Primary Care Unavailab JENNY Herman Attending Unavailable KAROLINE BAUTISTA Attending Unavailable BURSLEY, CHRISTOPHER B Primary Care Unavailab le BURSLEY, CHRISTOPHER B Primary Care Unavailab le JESSY, MARIELLE Referring Unavailable BURSLEY, CHRISTOPHER B Primary Care Unavailab le HAURY, JENNY Referring Unavailable BOATENG, ANA Primary Care Unavailable SELF Referring Unavailable JESSY, MARIELLE Attending Unavailable BURSLEY, CHRISTOPHER B Primary Care Unavailab kaleb PODLOGJEANNIE STEWART Attending Unavailable BURSLEY, CHRISTOPHER B Primary Care Unavailab ETHEL Danielson Attending Unavailable JESSY, MARIELLE Referring Unavailable BURSLEY, CHRISTOPHER B Primary Care Unavailab le JESSY, MARIELLE Referring Unavailable BURSLEY, CHRISTOPHER B Primary Care Unavailab ETHEL Danielson Attending Unavailable JESSY, MARIELLE Referring Unavailable BURSLEY, CHRISTOPHER B Primary Care Unavailab ANA Odell Attending Unavailable Allergies Allergy Classification Reported Allergen(s) Allergy Type Date of Onset Reaction(s) Facility (1 source) Dust; Translations: [Dust] Propensity to adverse reactions to drug (disorder) [facility] Repository (1 source) Environmental allergy; Translations: [Environmental] Propensity to adverse reactions (disorder) [facility] Repository (1 source) [facility]; Translations: [Animals] Propensity to adverse reactions to drug (disorder) [facility] Repository (1 source) Pollen; Translations: [Pollen] Propensity to adverse reactions to drug (disorder) [facility] Repository (1 source) Tree; Translations: [Trees] Propensity to adverse reactions to drug (disorder) [facility] Repository (1 source) Sun; Translations: [Sun] Propensity to adverse reactions to drug (disorder) [facility] Rep[facility] (1 source) Grass; Translations: [Grass] Propensity to adverse reactions to drug (disorder) [facility] Repository NEGATED: Highlighted row has been ruled out! (3 sources) natural latex rubber; Translations: [LATEX, NATURAL RUBBER] Drug allergy (disorder) [facility] NEGATED: Highlighted row has been ruled out! (3 sources) No IV Contrast Allergy.; Translations: [IV Dye, Iodine Containing] Drug allergy (disorder) [facility] Medications Current Medications Medication Drug Class(es) Dates Sig (Normalized) Sig (Original) aspirin 81 mg delayed release oral tablet (6 sources) Platelet Aggregation Inhibitor, Nonsteroidal Anti-inflammatory Drug Start: 07-20-2024 End: 09-20-2024 take 1 tablet by mouth once daily aspirin, enteric coated (ECOTRIN LOW STRENGTH) 81 mg EC tablet Indications: with uncertain dates, antepartum (HCC) , 8 weeks gestation of (HCC) , Screen for STD (sexually transmitted disease) Take 1 tablet by mouth once daily. 90 tablet 3 07/20/2024 09/20/2024 Discontinued cephalexin 500 mg oral capsule (1 source) Cephalosporin Antibacterial Start: 08-28-2022 take 500 mg by mouth every twelve hours Cephalexin Active 500 MG PO EVERY 12 HOURS August 28, 2022 12:00am ondansetron 4 mg disintegrating oral tablet (20 sources) Serotonin-3 Receptor Antagonist Start: 07-20-2024 End: 12-22-2024 take 1 tablet by mouth every eight hours as needed ondansetron orally disintegrating (ZOFRAN ODT) 4 mg disintegrating tablet Take 1 tablet by mouth every 8 hours as needed. 20 tablet 1 07/20/2024 12/22/2024 Discontinued (Discontinued by Patient) Start: 08-28-2022 take 4 mg by mouth e very eight hours as needed Ondansetron Active 4 MG PO EVERY 8 HOURS NEEDED August 28, 2022 12:00am Start: 12-01-2019 End: 11-19-2022 take 1 tablet by mouth every eight hours as needed ondansetron (ZOFRAN) 4 mg tablet Take 1 tablet by mouth every 8 hours as needed for nausea/vomiting. 40 tablet 1 06/07/2022 11/19/2022 Discontinued (Course of therapy completed) Comment on above: 1 to 2 tablets PO ev ta 8 hours prn nausea Take 1 tablet by mikael th every 8 hours as needed for nausea/vomiting. vit,thor 74/iron/folic ( VITAMIN 1+1 ORAL) (10 sources) take 1 tablet by mouth once daily vit,thor 74/iron/folic ( VITAMIN 1+1 ORAL) Take 1 tablet by mouth once daily. Active Completed/Discontinued Medications Medication Drug Class(es) Dates Sig (Normalized) Sig (Original) 12 hr doxylamine succinate 20 mg / pyridoxine hydrochloride 20 mg extended release oral tablet (12 sources) take 1 tablet by mouth once daily at bedtime doxylamine-pyridox ine, vit B6, (BONJESTA) 20-20 mg TbID Take 1 tablet by mouth daily at bedtime. 0 Active Comment on above: Take 1 tablet by mikael th daily at bedtime. esomeprazole 40 mg delayed release oral capsule (10 sources) Proton Pump Inhibitor Start: 09-27-2021 take 1 capsule by mouth once daily Esomeprazole Magnesium 40 MG Oral Capsule Delayed Release TAKE ONE (1) CAPSULE BY MOUTH EVERY DAY Quantity: 90 Refills: 1 Ordered: 27-Sep-2021 Alfredo Bowden MD Start : 27-Sep-2021 Active Start: 08-03-2021 take 1 capsule by mo [facility] once daily Esomeprazole Magnesium 40 MG Oral Capsule Delayed Release TAKE ONE (1) CAPSULE BY MOUTH EVERY DAY Quantity: 30 Refills: 0 Ordered: 24-Aug-2021 Alfredo Bowden MD Start : 03-Aug-2021 Active famotidine 40 mg oral tablet (3 sources) Histamine-2 Receptor Antagonist Start: 07-12-2024 End: 08-11-2024 take 1 tablet by mouth once daily famotidine (PEPCID) 40 mg tablet Indications: Nausea and vomiting in , 7 weeks gestation of Take 1 tablet by mouth once daily. 30 tablet 1 07/12/2024 07/20/2024 Discontinued fluticasone propionate 0.05 mg/actuat metered dose nasal spray (5 sources) Corticosteroid Start: 10-25-2020 Fluticasone Propionate 50 MCG/ACT Nasal Suspension INSTILL 2 SQUIRT Every morning Quantity: 1 Refills: 2 Ordered: 25-Oct-2020 Seema Coates Start : 25-Oct-2020 Active Tlldju-S62-[id number] Factor (2 sources) Eezccw-V32-[id number] ns icFactor folic acid 1 mg oral tablet (3 sources) Start: 07-12-2024 End: 07-20-2024 take 1 tablet by mouth once daily folic acid 1 mg tablet Indications: Nausea and vomiting in , 7 weeks gestation of Take 1 tablet by mouth once daily. 30 tablet 2 07/12/2024 07/20/2024 Discontinued ibuprofen 200 mg oral tablet (2 sources) Nonsteroidal Anti-inflammatory Drug take 3 tablets by mouth every six hours as needed for pain ibuprofen 200 mg Tablet, Ordered By: Vivian Rondon MD Directions: 3 tablet oral every six hours PRN FOR MILD PAIN ibuprofen 200 mg / pseudoephedrine hydrochloride 30 mg oral tablet (20 sources) alpha-Adrenergic Agonist, Nonsteroidal Anti-inflammatory Drug Start: 10-25-2020 take 1 tablet by mouth every eight hours Advil Cold/Sinus 30-200 MG Oral Tablet TAKE 1 TABLET Every 8 hours Quantity: 1 Refills: 0 Ordered: 25-Oct-2020 Seema Coates Start : 25-Oct-2020 Active levothyroxine sodium 0.05 mg oral tablet (12 sources) l-Thyroxine take 1 tablet by mouth once daily before breakfast levothyroxine (SYNTHROID) 50 mcg tablet Take 50 mcg by mouth daily before breakfast. 0 Active Comment on above: Take 50 mcg by mouth daily before breakfast. levothyroxine (Synthroid) 50 mcg Tablet Directions: 1 tablet oral daily before breakfast (2 sources) take 1 tablet by mouth once daily before breakfast levothyroxine (Synthroid) 50 mcg Tablet Directions: 1 tablet oral daily before breakfast metoclopramide 10 mg oral tablet (3 sources) Dopamine-2 Receptor Antagonist Start: 07-12-2024 End: 08-11-2024 take 1 tablet by mouth three times daily as needed metoclopramide HCl (REGLAN) 10 mg tablet Indications: Nausea and vomiting in , 7 weeks gestation of Take 1 tablet by mouth three times a day as needed. 90 tablet 07/12/2024 07/20/2024 Discontinued 24 hr NIFEdipine 30 mg extended release oral tablet (19 sources) Dihydropyridine Calcium Channel Jose Start: 02-12-2021 take 1 tablet by mouth once daily NIFEdipine ER 30 MG Oral Tablet Extended Release 24 Hour take 1 tablet by mouth once daily Quantity: 30 Refills: 5 Ordered: 07-Mar-2021 Lupe Lieberman DOita Start : 12-Feb-2021 Active PNV (2 sources) PNV vit calc,iron,folic ( VITAMIN ORAL) (20 sources) End: 07-12-2024 take 1 tablet by mouth once daily vit calc,iron,folic ( VITAMIN ORAL) Take 1 tablet by mouth once daily. 07/12/2024 Discontinued (Course of therapy completed) take 1 tablet by mouth once cinthia y vit calc,iron,folic ( VITAMIN ORAL) Take 1 tablet by mouth once daily. Active take 1 tablet by mouth once cinthia y vit calc,iron,folic ( VITAMIN ORAL) Take 1 tablet by mouth once daily. 0 Active Comment on above: Take 1 tablet by mikael th once daily. promethazine hydrochloride 25 mg oral tablet (20 sources) Phenothiazine Start: 07-17-19 End: 07-20-19 take 1 tablet by mouth every six hours as needed promethazine (PHENERGAN) 25 mg tablet Take 25 mg by mouth every 6 hours as needed. 07/17/2024 07/20/2024 Discontinued Start: 08-28-2022 Promethazine A ctive 25 MG RC EVERY 6 HOURS August 28, 2022 12:00am Start: 05-08-2022 End: 07-12-2024 take 12.5-25 mg by mouth every six hours as needed promethazine (PHENERGAN) 12.5 mg tablet Take 1-2 tablets by mouth every 6 hours as needed. 30 tablet 05/08/2022 07/12/2024 Discontinued (Course of therapy completed) End: 05-08-2022 take 1 tablet by mouth every twelve hours as needed promethazine (PHENERGAN) 25 mg tablet Take 25 mg by mouth every 12 hours as needed. 0 05/08/2022 Discontinued Comment on above: Take 25 mg by mouth every 12 hours as needed. Take 1-2 tablets by mouth every 6 hours as needed. vitamin b6 50 mg oral tablet (14 sources) End: 11-19-2022 pyridoxine, vitamin B6, (VITAMIN B6) 50 mg tablet Take 25 mg by mouth four times daily. 0 11/19/2022 Discontinued (Course of therapy completed) Comment on above: Take 25 mg by mouth four times daily. Problems Active Problems Problem Classification Problem Date Documented Da te Episodic/Chronic Abdominal pain (20 sources) Right upper quadrant pain; Translations: [Abdominal pain, right upper quadrant] Episodic Acute bronchitis (1 source) Acute bronchitis, unspecified; Translations: [Acute bronchitis, unspecified] Onset: 8 Episodic Anxiety disorders (5 sources) Anxiety; Translations: [Anxiety disorder, unspecified] Onset: 4 06-12-2020 Chronic Biliary tract disease (10 sources) Biliary colic; Translations: [Calculus of gallbladder without mention of cholecystitis, without mention of obstruction] Episodic Blindness and vision defects (19 sources) Visual impairment; 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, 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 Esophageal disorders (20 sources) Gastroesophageal reflux disease; Translations: [Esophageal reflux] Onset: 4 03-29-2024 Chronic Fluid and electrolyte disorders (4 sources) Dehydration; Translations: [Mild dehydration] 06-11-2020 Episodic Headache; including migraine (20 sources) Ophthalmic migraine; Translations: [Other forms of migraine, without mention of intractable migraine without mention of status migrainosus] 12-16-2020 Chronic Hemorrhoids (20 sources) Hemorrhoids; Translations: [Unspecified hemorrhoids without mention of complication] Onset: 4 03-29-2024 Episodic Menstrual disorders (20 sources) Dysmenorrhea; Translations: [Dysmenorrhea] Chronic Nausea and vomiting (4 sources) Vomiting; Translations: [Nausea and vomiting] 06-11-2020 Episodic Other complications of (1 source) Mild hyperemesis gravidarum; Translations: [Mild hyperemesis gravidarum] Onset: 5 Episodic Other ear and sense organ disorders (1 source) Impacted cerumen in left ear; Translations: [Impacted cerumen, left ear] 03-29-2024 Episodic Other ear and sense organ disorders (2 sources) Impacted cerumen, left ear; Translations: [Impacted cerumen, left ear] Onset: 4 Episodic Other gastrointestinal disorders (20 sources) Irritable bowel syndrome; Translations: [Irritable bowel syndrome] Chronic Other gastrointestinal disorders (1 source) Diarrhea; Translations: [Diarrhea, unspecified] 08-28-2022 Episodic Other non-traumatic joint disorders (8 sources) Hip pain; Translations: [Pain in right hip] Onset: 5 12-22-2024 Episodic Other non-traumatic joint disorders (1 source) Pain in right hip; Translations: [Bilateral hip pain] Onset: 5 Episodic Other non-traumatic joint disorders (1 source) Pain in left hip; Translations: [Bilateral hip pain] Onset: 5 Episodic Other nutritional; endocrine; and metabolic disorders (20 sources) H/O: hypothyroidism; Translations: [Personal history of other endocrine, nutritional and metabolic disease] Onset: 2 Episodic Other and delivery including normal (20 sources) ; Translations: [Primigravida] Onset: 5 11-08-2019 Episodic Other upper respiratory disease (20 sources) Allergic rhinitis; Translations: [Allergic rhinitis, cause unspecified] Chronic Otitis media and related conditions (20 sources) Acute otitis media with effusion; Translations: [Acute nonsuppurative otitis media, unspecified] Episodic Residual codes; unclassified (20 sources) Body mass index 20-24 - normal; Translations: [Body Mass Index between 19-24, adult] Episodic Residual codes; unclassified (20 sources) History finding; Translations: [Other specified conditions influencing health status] Episodic Residual codes; unclassified (1 source) Gestation period, 9 weeks; Translations: [9 weeks gestation of ] Episodic Residual codes; unclassified (1 source) Gestation period, 13 weeks; Translations: [13 weeks gestation of ] Episodic Residual codes; unclassified (1 source) Gestation period, 26 weeks; Translations: [26 weeks gestation of ] Episodic Residual codes; unclassified (2 sources) Gestation period, 28 weeks; Translations: [28 weeks gestation of ] Episodic Residual codes; unclassified (2 sources) Gestation period, 30 weeks; Translations: [30 weeks gestation of ] Episodic Residual codes; unclassified (2 sources) Gestation period, 34 weeks; Translations: [34 weeks gestation of ] Episodic Residual codes; unclassified (2 sources) Gestation period, 36 weeks; Translations: [36 weeks gestation of ] Episodic Residual codes; unclassified (2 sources) Gestation period, 37 weeks; Translations: [37 weeks gestation of ] Episodic Residual codes; unclassified (1 source) Gestation period, 39 weeks; Translations: [39 weeks gestation of ] 12-09-2022 Episodic Residual codes; unclassified (2 sources) Gestation period, 40 weeks; Translations: [40 weeks gestation of ] 12-13-2022 Episodic Residual codes; unclassified (1 source) Gestation period, 7 weeks; Translations: [Less than 8 weeks gestation of ] 07-12-2024 Episodic Residual codes; unclassified (3 sources) Gestation period, 8 weeks; Translations: [8 weeks gestation of ] 07-20-2024 Episodic Residual codes; unclassified (2 sources) Gestation period, 12 weeks; Translations: [12 weeks gestation of ] 08-17-2024 Episodic Residual codes; unclassified (1 source) Gestation period, 20 weeks; Translations: [20 weeks gestation of ] 10-13-2024 Episodic Residual codes; unclassified (1 source) Gestation period, 21 weeks; Translations: [21 weeks gestation of ] 10-14-2024 Episodic Residual codes; unclassified (1 source) Gestation period, 24 weeks; Translations: [24 weeks gestation of ] 11-10-2024 Episodic Residual codes; unclassified (1 source) Gestation period, 38 weeks; Translations: [38 weeks gestation of ] 02-16-2025 Episodic Residual codes; unclassified (1 source) 38 weeks gestation of ; Translations: [38 weeks gestation of (HCC)] Onset: Episodic Residual codes; unclassified (1 source) 37 weeks gestation of ; Translations: [37 weeks gestation of (HCC)] Onset: Episodic Residual codes; unclassified (1 source) 36 weeks gestation of ; Translations: [36 weeks gestation of (HCC)] Onset: 09-03-202 5 Episodic Residual codes; unclassified (1 source) 34 weeks gestation of ; Translations: [34 weeks gestation of (HCC)] Onset: 5 Episodic Residual codes; unclassified (1 source) 32 weeks gestation of ; Translations: [32 weeks gestation of (HCC)] Onset: 5 Episodic Residual codes; unclassified (1 source) 30 weeks gestation of ; Translations: [30 weeks gestation of (HCC)] Onset: 5 Episodic Residual codes; unclassified (1 source) 28 weeks gestation of ; Translations: [28 weeks gestation of (HCC)] Onset: 5 Episodic Unclassified (4 sources) 06-12-2020 Unclassified (2 sources) Patient encounter status 07-20-2024 Unclassified (19 sources) [facility] - [facility]ON Onset: 5 07-20-2024 Unclassified (19 sources) Education - [place] Onset: 5 07-20-2024 Urinary tract infections (1 source) Urinary tract infectious disease; Translations: [Urinary tract infection, site not specified] 08-28-2022 Episodic Past or Other Problems Problem Classification Problem Date Documented Date Episodic/Chronic Immunizations and screening for infectious disease (2 sources) Vaccination needed; Translations: [Encounter for immunization] Onset: 08-17-2024 Episodic Other complications of (12 sources) Nausea and vomiting; Translations: [Vomiting of , unspecified] Onset: 12-01-2019 05-29-2021 Episodic Other complications of (20 sources) Supervision of with history of infertility, unspecified trimester; Translations: [Supervision of high-risk with history of infertility] Onset: 05-02-2022 Resolved: 08-17-2024 Episodic Other complications of (20 sources) Morning sickness; Translations: [Other specified related conditions, unspecified trimester] Onset: 05-02-2022 Episodic Other complications of (20 sources) Vomiting of , unspecified; Translations: [Unspecified vomiting of , unspecified as to episode of care or not applicable] Onset: 12-01-2019 Resolved: 07-19-2022 07-19-2022 Episodic Other complications of (20 sources) Hyperemesis gravidarum; Translations: [Mild hyperemesis gravidarum] Onset: 07-20-2024 Resolved: 10-13-2024 07-20-2024 Episodic Other nutritional; endocrine; and metabolic disorders (1 source) Personal history of other endocrine, nutritional and metabolic disease; Translations: [History of hypothyroidism] Onset: 11-10-2024 Episodic Other screening for suspected conditions (not mental disorders or infectious disease) (20 sources) Patient encounter status; Translations: [Screening for other and unspecified cardiovascular conditions] Onset: 10-13-2024 Episodic Residual codes; unclassified (1 source) 24 weeks gestation of ; Translations: [24 weeks gestation of (HCC)] Onset: 11-10-2024 Episodic Residual codes; unclassified (1 source) 21 weeks gestation of ; Translations: [21 weeks gestation of (HCC)] Onset: 10-13-2024 Episodic Residual codes; unclassified (1 source) 20 weeks gestation of ; Translations: [20 weeks gestation of ([facility])] Onset: 10-13-2024 Episodic Residual codes; unclassified (1 source) 8 weeks gestation of ; Translations: [8 weeks gestation of ] Onset: 08-17-2024 Episodic Residual codes; unclassified (1 source) 12 weeks gestation of ; Translations: [12 weeks gestation of ] Onset: 08-17-2024 Episodic Residual codes; unclassified (1 source) Less than 8 weeks gestation of ; Translations: [7 weeks gestation of ] Onset: 07-12-2024 Episodic Screening and history of mental health and substance abuse codes (20 sources) H/O: anxiety state; Translations: [Personal history of other mental and behavioral disorders] Onset: 05-02-2022 Episodic Thyroid disorders (19 sources) Hypothyroidism; Translations: [Hypothyroidism, unspecified] Onset: 07-20-2024 Resolved: 07-20-2024 07-20-2024 Chronic Results Test Name Value Interpretation Reference Range Facility URINE OB DIP B/Oon 5 Glucose Ql (U) Negative Neg mg/dL [facility] Interpretation and review of laboratory results Normal [facility] Protein.monoclonal (U) [Mass/Vol] Negative Neg mg/dL [facility] URINE OB DIP B/Oon 5 Glucose Ql (U) Negative Neg mg/dL [facility] Interpretation and review of laboratory results Normal [facility] Protein.monoclonal (U) [Mass/Vol] Negative Neg mg/dL [facility] Free T4 [Mass/Vol]on 025 Interpretation and review of laboratory results Abnormal [facility] No Panel Informationon 02-02 [facility] ROUTINE, GROUP B ST REPTOCOCCUS BY PCRon 02-02-2025 ROUTINE, GROUP B STREPTOCOCCUS BY PCR Not detected Normal [facility] Comment on above: Performed By: #### T SPN #### [facility] CLIA [id number] [address] [place] [address] [place] T4 FREE/FREE THYROXINEon Free T4 [Mass/Vol] 0.8 ng/dL Low 0.9 - 1.7 ng/dL [facility] T4 Free SerPl-mCncon Free T4 [Mass/Vol] 0.8 ng/dL Low 0.9-1.7 [facility] Comment on above: Order Comment: Speci men Type: BLOOD SPECIMENOrdering Facility: [facility] Address: [address] [place] [address] Performed By: #### 3 016-3, 3024-7 ####[facility] LABCLIA [id number] [place] [address] [place] THYROID STIMULATING HORMONEo n 02-02-2025 TSH Qn 3.930 m[IU]/L [facility] Comment on above: If the patient is pr egnant, TSH reference range varies by gestational period: First Trimester (weeks 9-12): 0.180-2.990 mIU/L Second Trimester: 0.110-3.980 mIU/L Third Trimester: 0.480-4.710 mIU/L Dionisio Meyers et al. A Practical Approach for the Verifications and Determination of Site- and Trimester-Specific Reference Intervals for Thyroid Function tests in . Thyroid, 2019:29:3:412-420. Héctor E, et al. 2017 Guidelines of the [place] [employer] for the Diagnosis and Management of Thyroid Disease during and the . Thyroid, 2017:27:3:315-389. TSH Qnon 02-02-2025 Interpretation and review of laboratory results Normal [facility] TSH SerPl-aCncon 02-02-2025 TSH Qn 3.930 m[IU]/L Normal 0.270-4.200 [facility] Comment on above: Order Comment: Speci men Type: BLOOD SPECIMENOrdering Facility: [facility] Address: [address] [place] [address] Result Comment: If t he patient is , TSH reference range varies by gestational period: First Trimester (weeks 9-12): 0.180-2.990 mIU/L Second Trimester: 0.110-3.980 mIU/L Third Trimester: 0.480-4.710 mIU/L Dionisio Meyers et al. A Practical Approach for the Verifications and Determination of Site- and Trimester-Specific Reference Intervals for Thyroid Function tests in . Thyroid, 2019:29:3:412-420. Héctor Arechiga, et al. 2017 Guidelines of the [place] Thy[employer] for the Diagnosis and Management of Thyroid Disease during and the . Thyroid, 2017:27:3:315-389. Performed By: #### 3 016-3, 3024-7 ####[facility] LABCLIA [id number] [place] [address] [place] URINE OB DIP B/Oon 5 Glucose Ql (U) Negative Neg mg/dL [facility] Interpretation and review of laboratory results Normal [facility] Protein.monoclonal (U) [Mass/Vol] Negative Neg mg/dL [facility] URINE OB DIP B/Oon 5 Glucose Ql (U) Negative Neg mg/dL [facility] Interpretation and review of laboratory results Normal [facility] Protein.monoclonal (U) [Mass/Vol] Negative Neg mg/dL [facility] CBC W Auto Differential pane l (Bld)on 12-08-2024 Basophils (Bld) [#/Vol] 0.03 10*3/uL Normal <0.11 [facility] Comment on above: Order Comment: Speci men Type: BLOOD SPECIMENOrdering Facility: [facility] Address: [address] [place] [address] Performed By: #### 5 7021-8 ####[facility] MILLWNCLIA [id number] [place] [address] [place] Basophils/100 WBC (Bld) 0.3 % Normal [facility] Comment on above: Order Comment: Speci men Type: BLOOD SPECIMENOrdering Facility: [facility] Address: [address] [place] [address] Performed By: #### 5 7021-8 ####[facility] CENTERLIA [id number] [place] [address] [place] Differential cell count method Nom (Bld) Auto Normal [facility] Comment on above: Order Comment: Speci men Type: BLOOD SPECIMENOrdering Facility: [facility] Address: [address] [place] [address] Performed By: #### 5 7021-8 ####[facility] CENTERLIA [id number] [place] [address] [place] Eosinophils (Bld) [#/Vol] 0.18 10*3/uL Normal <0.46 [facility] Comment on above: Order Comment: Speci men Type: BLOOD SPECIMENOrdering Facility: [facility] Address: [address] [place] [address] Performed By: #### 5 7021-8 ####[facility] EASTWNCLIA [id number] [place] [address] [place] Eosinophils/100 WBC (Bld) 1.9 % Normal [facility] Comment on above: Order Comment: Speci men Type: BLOOD SPECIMENOrdering Facility: [facility] Address: [address] [place] [address] Performed By: #### 5 7021-8 ####[facility] HOSPITALNCLIA [id number] [place] [address] [place] Erythrocyte distribution width (RBC) [Ratio] 13.1 % Normal 11.5-15.0 [facility] Comment on above: Order Comment: Speci men Type: BLOOD SPECIMENOrdering Facility: [facility] Address: [address] [place] [address] Performed By: #### 5 7021-8 ####[facility] HOSPITALNCJUANITAA [id number] [place] [address] [place] Hematocrit (Bld) [Volume fraction] 33.5 % Low 36.0-46.0 [facility] Comment on above: Order Comment: Speci men Type: BLOOD SPECIMENOrdering Facility: [facility] Address: [address] [place] [address] Performed By: #### 5 7021-8 ####[facility]PITALNCMO[facility] [id number] [place] [address] [place] Hemoglobin (Bld) [Mass/Vol] 11.6 g/dL Normal 11.5-15.5 [facility] Comment on above: Order Comment: Speci men Type: BLOOD SPECIMENOrdering Facility: [facility] Address: [address] [place] [address] Performed By: #### 5 7021-8 ####[facility] HOSPITALNCLIA [id number] [place] [address] [place] Immature granulocytes (Bld) [#/Vol] 0.13 10*3/uL High <0.10 [facility] Comment on above: Order Comment: Speci men Type: BLOOD SPECIMENOrdering Facility: [facility] Address: [address] [place] [address] Performed By: #### 5 7021-8 ####[facility] HOSPITALNCLIA [id number] [place] [address] [place] Immature granulocytes/100 WBC (Bld) 1.4 % Normal [facility] Comment on above: Order Comment: Speci men Type: BLOOD SPECIMENOrdering Facility: [facility] Address: [address] [place] [address] Performed By: #### 5 7021-8 ####[facility] TARANNCLINDSAY [id number] [place] [address] [place] Lymphocytes (Bld) [#/Vol] 1.16 10*3/uL Normal 1.00-4.00 [facility] Comment on above: Order Comment: Speci men Type: BLOOD SPECIMENOrdering Facility: [facility] Address: [address] [place] [address] Performed By: #### 5 7021-8 ####[facility] HOSPITALGLENYSA [id number] [place] [address] [place] Lymphocytes/100 WBC (Bld) 12.4 % Normal [facility] Comment on above: Order Comment: Speci men Type: BLOOD SPECIMENOrdering Facility: [facility] Address: [address] [place] [address] Performed By: #### 5 7021-8 ####[facility] HOSPITALNCJUANITAA [id number] [place] [address] [place] MCH (RBC) [Entitic mass] 32.4 pg Normal 26.0-34.0 [facility] Comment on above: Order Comment: Speci men Type: BLOOD SPECIMENOrdering Facility: [facility] Address: [address] [place] [address] Performed By: #### 5 7021-8 ####[facility] HOSPITALNCLIA [id number] [place] [address] [place] MCHC (RBC) [Mass/Vol] 34.6 g/dL Normal 30.5-36.0 [facility] Comment on above: Order Comment: Speci men Type: BLOOD SPECIMENOrdering Facility: [facility] Address: [address] [place] [address] Performed By: #### 5 7021-8 ####[facility] MILLWNCLIA [id number] [place] [address] [place] MCV (RBC) [Entitic vol] 93.6 fL Normal 80.0-100.0 [facility] Comment on above: Order Comment: Speci men Type: BLOOD SPECIMENOrdering Facility: [facility] Address: [address] [place] [address] Performed By: #### 5 7021-8 ####[facility]OSPITALNCLIA [id number] [place] [address] [place] Monocytes (Bld) [#/Vol] 0.75 10*3/uL Normal <0.87 [facility] Comment on above: Order Comment: Speci men Type: BLOOD SPECIMENOrdering Facility: [facility] Address: [address] [place] [address] Performed By: #### 5 7021-8 ####[facility] HOSPITALA [id number] [place] [address] [place] Monocytes/100 WBC (Bld) 8.0 % Normal [facility] Comment on above: Order Comment: Speci men Type: BLOOD SPECIMENOrdering Facility: [facility] Address: [address] [place] [address] Performed By: #### 5 7021-8 ####[facility] CENTERLIA [id number] [place] [address] [place] Neutrophils (Bld) [#/Vol] 7.10 10*3/uL Normal 1.45-7.50 [facility] Comment on above: Order Comment: Speci men Type: BLOOD SPECIMENOrdering Facility: [facility] Address: [address] [place] [address] Performed By: #### 5 7021-8 ####[facility] CENTERLIA [id number] [place] [address] [place] Neutrophils/100 WBC (Bld) 76.0 % Normal [facility] Comment on above: Order Comment: Speci men Type: BLOOD SPECIMENOrdering Facility: [facility] Address: [address] [place] [address] Performed By: #### 5 7021-8 ####[facility]PITALNCMO[facility] [id number] [place] [address] [place] Nucleated RBC (Bld) [#/Vol] 10*3/uL Normal <0.01 [facility] Comment on above: Order Comment: Speci men Type: BLOOD SPECIMENOrdering Facility: [facility] Address: [address] [place] [address] Performed By: #### 5 7021-8 ####[facility] [id number] [place] [address] [place] Nucleated RBC/100 WBC (Bld) [Ratio] 0.0 /100 WBC Normal [facility] Comment on above: Order Comment: Speci men Type: BLOOD SPECIMENOrdering Facility: [facility] Address: [address] [place] [address] Performed By: #### 5 7021-8 ####[facility] HOSPITALNCLI [id number] [place] [address] [place] Platelet mean volume (Bld) [Entitic vol] 9.5 fL Normal 9.0-12.7 [facility] Comment on above: Order Comment: Speci men Type: BLOOD SPECIMENOrdering Facility: [facility] Address: [address] [place] [address] Performed By: #### 5 7021-8 ####[facility] HOSPITALNCLI [id number] [place] [address] [place] Platelets (Bld) [#/Vol] 191 10*3/uL Normal 150-400 [facility] Comment on above: Order Comment: Speci men Type: BLOOD SPECIMENOrdering Facility: [facility] Address: [address] [place] [address] Performed By: #### 5 7021-8 ####[facility] HOSPITALNCLIA [id number] [place] [address] [place] RBC (Bld) [#/Vol] 3.58 10*6/uL Low 3.90-5.20 [facility] Comment on above: Order Comment: Speci men Type: BLOOD SPECIMENOrdering Facility: [facility] Address: [address] [place] [address] Performed By: #### 5 7021-8 ####[facility] HOSPITALNCA [id number] [place] [address] [place] WBC (Bld) [#/Vol] 9.35 10*3/uL Normal 3.70-11.00 [facility] Comment on above: Order Comment: Speci men Type: BLOOD SPECIMENOrdering Facility: [facility] Address: [address] [place] [address] Performed By: #### 5 7021-8 ####[facility] CENTERLIA [id number] [place] [address] [place] GESTATIONAL GLUCOSE SCREEN, 1-HOUR, 50 GRAM, NON-FASTINGon 12-08-2024 Glucose [Mass/Vol] 105 mg/dL Normal 74-134 [facility] Comment on above: Order Comment: Speci men Type: BLOOD SPECIMEN [facility] Address: [address] [place], [place] [address] Result Comment: [facility] Congress of Obstetricians and Gynecologists (Prashant/Boo) guidelines state a gestational diabetes mellitus positive screen is made, in women not previously diagnosed with overt diabetes, when the 1 hr plasma glucose level is equal to or above 140 mg/dL. The [facility] Academic Administrator and [facility] recommends a 135 mg/dL cutoff. Performed By: #### T SPN #### [facility] CLIA [id number] [address] [place] [address] [place] Reagin and Treponema pallidu m IgG and IgM [Interp]on 12-08-2024 T. pallidum IgG+IgM IA Ql (S) Non-Reactive Normal Nonreactive [facility] Comment on above: Order Comment: Speci men Type: BLOOD SPECIMENOrdering Facility: [facility] Address: [address] [place] [address] Performed By: #### 7 3752-8 ####[facility] [id number] [place] [address] [place] Reagin+T pallidum IgG+IgM Se rPl-Impon 12-08-2024 Reagin and Treponema pallidum IgG and IgM [Interp] Cannot exclude recent Treponemal infection if specimen collected within 7-10 days after appearance of suspect lesions or 2-3 weeks after an exposure. Clinical correlation is required. Normal [facility] Comment on above: Order Comment: Speci men Type: BLOOD SPECIMENOrdering Facility: [facility] Address: [address] [place] [address] Performed By: #### 7 3752-8 ####[facility] LAB[facility] [id number] [place] [address] [place] T4 Free SerPl-mCncon 025 Free T4 [Mass/Vol] 0.8 ng/dL Low 0.9-1.7 [facility] Comment on above: Order Comment: Speci men Type: BLOOD SPECIMENOrdering Facility: [facility] Address: [address] [place] [address] Performed By: #### 3 024-7, 3016-3 ####[facility] LABIA [id number] [place] [address] [place] TSH SerPl-aCncon 12-08-2024 TSH Qn 2.860 m[IU]/L Normal 0.270-4.200 [facility] Comment on above: Order Comment: Speci men Type: BLOOD SPECIMENOrdering Facility: [facility] Address: [address] [facility] [place] [address] Result Comment: If t he patient is , TSH reference range varies by gestational period: First Trimester (weeks 9-12): 0.180-2.990 mIU/L Second Trimester: 0.110-3.980 mIU/L Third Trimester: 0.480-4.710 mIU/L Dionisio Meyers et al. A Practical Approach for the Verifications and Determination of Site- and Trimester-Specific Reference Intervals for Thyroid Function tests in . Thyroid, 2019:29:3:412-420. Héctor Arechiga, et al. 2017 Guidelines of the [place] Thyroid Association for the Diagnosis and Management of Thyroid Disease during and the . Thyroid, 2017:27:3:315-389. Performed By: #### 3 024-7, 3016-3 ####[facility] LABCLIA [id number] [address] [place] CNCOon 11-29-2024 CNCO Letter Text Normal [facility] Examination level ultrasound on 10-13-2024 Indication Standard anatomic survey Impression REMOTE READ The patient is referred for a standard anatomic survey. - Single, live, intrauterine . - biometry is consistent with the established gestational age. - No malformations were visualized on a complete standard anatomic survey. - The amniotic fluid volume is normal amount. - The placenta is anterior, fundal. - The Transabdominal cervical length measures 51.4 mm with no evidence of funneling or other dynamic changes. - Not all structural malformations can be detected by ultrasound examination. Recommendations Additional follow-up as clinically indicated. Maternal Assessment Height 160 cm Height (ft) 5 ft Height (in) 3 in Physical Exam Initial weight (lb) 120 lb Initial BMI 21.26 kg/m Method Transabdominal ultrasound examination. View: Adequate visualization [place] . Number of fetuses: 1 Dating LMP on: 05/20/2024 GA by LMP 20 w + 6 d DEAN by LMP: 02/24/2025 GA by prior assessment 20 w + 6 d DEAN by prior assessment: 02/24/2025 Ultrasound examination on: 10/13/2024 GA by U/S based upon: AC, BPD, Femur, HC GA by U/S 20 w + 6 d DEAN by U/S: 02/24/2025 Assigned: based on the LMP, selected on 07/20/2024 Assigned GA 20 w + 6 d Assigned DEAN: 02/24/2025 General Evaluation Cardiac activity present. FHR 148 bpm. movements: present. Presentation: cephalic Placenta: Placental site: anterior, fundal Umbilical cord: Cord vessels: 3 vessel cord. Insertion site: normal insertion Amniotic fluid: Amount of AF: normal amount. MVP 5.2 cm Growth Overview Exam date GA BPD (mm) HC (mm) AC (mm) FL (mm) HL (mm) EFW (g) 10/13/2024 20w 6d 50.7 69% 182.2 42% 155.4 38% 33.1 44% 31.7 36% 360 29% Biometry Standard BPD 50.7 mm 21w 3d 69% Hadlock OFD 63.9 mm 20w 3d 50% Nicolaides HC 182.2 mm 20w 4d 42% [place] Cerebellum tr 21.8 mm 20w 4d 52% Hill Nuchal fold 5.6 mm AC 155.4 mm 20w 5d 38% Hadlock Femur 33.1 mm 20w 4d 44% [place] Humerus 31.7 mm 20w 4d 36% [place]onia EFW 360 g 20w 3d 29% Hadlock EFW (lb) 0 lb EFW (oz) 13 oz EFW by: Hadlock (HC-AC-FL) Extended Pathology Collector 5.1 mm CM 4.9 mm 41% Nicolaides Nasal bone 6.5 mm Extremities / Bony Struc FL / HC 0.18 13% Hadlock Other Structures FHR 148 bpm Anatomy Cranium: normal Lateral ventricles: normal Choroid plexus: normal Midline falx: normal Cavum septi pellucidi: normal Cerebellum: normal Cisterna magna: normal Head / Neck Vermis: Normal but not required for a standard anatomy exam Neck: Normal but not required for a standard anatomy exam Nuchal fold: Normal but not required for a standard anatomy exam Lips: normal Profile: Normal but not required for a standard anatomy exam Nose: Normal but not required for a standard anatomy exam Face Maxilla: Normal but not required for a standard anatomy exam Mandible: Normal but not required for a standard anatomy exam Orbits: Normal but not required for a standard anatomy exam Lens: Normal but not required for a standard anatomy exam 4-chamber view: normal RVOT view: normal LVOT view: normal 3-vessel view: normal 2-xdkmsj-xrryuji view: normal Heart / Thorax Situs: situs solitus (normal) Aortic arch view: Normal but not required for a standard anatomy exam SVC: Normal but not required for a standard anatomy exam IVC: Normal but not required for a standard anatomy exam Cardiac axis: normal Rt lung: Normal but not required for a standard anatomy exam Lt lung: Normal but not required for a standard anatomy exam Diaphragm: normal Cord insertion: normal Stomach: normal Kidneys: normal Bladder: normal Genitals: normal Abdomen Abdom. wall: normal Cervical spine: normal Thoracic spine: normal Lumbar spine: normal Sacral spine: normal Arms: normal Legs: normal Rt upper arm: normal Rt forearm: normal Rt hand: normal Rt fingers: normal Lt upper arm: normal Lt forearm: normal Lt hand: normal Lt fingers: normal Rt upper leg: normal Rt lower leg: normal Rt foot: normal Lt upper leg: normal Lt lower leg: normal Lt foot: normal Gender: Unspecified sex: normal Wants to know sex: no Maternal Structures Uterus / Cervix Uterus: Visualized Cervix: Visualized Approach: Transabdominal Cervical length 51.4 mm Other: Patient declined transvaginal ultrasound for cervical length. Ovaries / Tubes / Adnexa Rt ovary: Visualized Lt ovary: Visualized Performed By: Monica Fisher RDMS Read By: Roya Smith M.D. MATERNAL MEDICINE [facility] Radiology Study observation (narrative) [facility] Reginaldo 09-27-2024 BECCAN Telephone (OBGYWM) -------- RAMONA WAHL ([id number]) 1990 F Date Time Provider Department 09/27/24 PHILLIP CASTRO OBGYWEloina During your visit today, we recorded the following information about you: Fanny Virk, GENARO 09/27/2024 10:47 AM Signed [facility]. Order to provider to sign. GENARO Alonso Tara, RN 09/28/2024 11:49 AM Signed Faxed. Akanksha Fonseca RN Allergies As of Date: 09/27/2024 (No Known Allergies) Date Reviewed: 09/20/2024 Reviewed by: Karoline Bautista MD - Fully Assessed Reason for Visit: breast pump [Other] Prescriptions as of 09/28/2024 - ondansetron orally disintegrating (ZOFRAN ODT) 4 mg disintegrating tablet Take 1 tablet by mouth every 8 hours as needed. Problem List As Of Date 09/27/2024 Noted Resolved Nausea and vomiting during [O21.9] 12/01/2019 07/19/2022 Supervision of with history of infert*05/02/2022 08/17/2024 related nausea, antepartum [O26.899, *05/02/2022 History of anxiety [Z86.59] 05/02/2022 History of hypothyroidism [Z86.39] 05/02/2022 Encounter for supervision of normal intrauterin*07/20/2024 Hypothyroidism [E03.9] 07/20/2024 07/20/2024 Hyperemesis of [O21.0] 07/20/2024 Encounter Status:Closed by AKANKSHA FONSECA on 09/28/24 Normal [facility] CBC W Auto Differential pane l (Bld)on 08-17-2024 Basophils (Bld) [#/Vol] 0.03 10*3/uL Normal <0.11 [facility] Comment on above: Order Comment: Speci men Type: BLOOD SPECIMENOrdering Facility: [facility] Address: [address] [place] [address] Performed By: #### 5 7021-8 ####[facility] HEATHER [facility]SP[facility] HOSPITALLINDSAY [id number] [place] [address] [place] Basophils/100 WBC (Bld) 0.3 % Normal [facility] Comment on above: Order Comment: Speci men Type: BLOOD SPECIMENOrdering Facility: [facility] Address: [address] [place] [address] Performed By: #### 5 7021-8 ####[facility] BOBWGLENYSLIA [id number] [place] [address] [place] Differential cell count method Nom (Bld) Auto Normal [facility] Comment on above: Order Comment: Speci men Type: BLOOD SPECIMENOrdering Facility: [facility] Address: [address] [place] [address] Performed By: #### 5 7021-8 ####[facility] BOBSHAMOKIN DAMNCLIA [id number] [place] [address] [place] Eosinophils (Bld) [#/Vol] 0.28 10*3/uL Normal <0.46 [facility] Comment on above: Order Comment: Speci men Type: BLOOD SPECIMENOrdering Facility: [facility] Address: [address] [place] [address] Performed By: #### 5 7021-8 ####[facility]ITALNCLIA [id number] [place] [address] [place] Eosinophils/100 WBC (Bld) 2.8 % Normal [facility] Comment on above: Order Comment: Speci men Type: BLOOD SPECIMENOrdering Facility: [facility] Address: [address] [place] [address] Performed By: #### 5 7021-8 ####[facility] EASTWNCLIA [id number] [place] [address] [place] Erythrocyte distribution width (RBC) [Ratio] 14.3 % Normal 11.5-15.0 [facility] Comment on above: Order Comment: Speci men Type: BLOOD SPECIMENOrdering Facility: [facility] Address: [address] [place] [address] Performed By: #### 5 7021-8 ####[facility]PITALNCM[facility] [id number] [place] [address] [place] Hematocrit (Bld) [Volume fraction] 38.5 % Normal 36.0-46.0 [facility] Comment on above: Order Comment: Speci men Type: BLOOD SPECIMENOrdering Facility: [facility] Address: [address] [place] [address] Performed By: #### 5 7021-8 ####[facility] [id number] [place] [address] [place] Hemoglobin (Bld) [Mass/Vol] 12.9 g/dL Normal 11.5-15.5 [facility] Comment on above: Order Comment: Speci men Type: BLOOD SPECIMENOrdering Facility: [facility] Address: [address] [place] [address] Performed By: #### 5 7021-8 ####[facility] [id number] [place] [address] [place] Immature granulocytes (Bld) [#/Vol] 0.04 10*3/uL Normal <0.10 [facility] Comment on above: Order Comment: Speci men Type: BLOOD SPECIMENOrdering Facility: [facility] Address: [address] [place] [address] Performed By: #### 5 7021-8 ####[facility] [id number] [place] [address] [place] Immature granulocytes/100 WBC (Bld) 0.4 % Normal [facility] Comment on above: Order Comment: Speci men Type: BLOOD SPECIMENOrdering Facility: [facility] Address: [address] [place] [address] Performed By: #### 5 7021-8 ####[facility]ITALNCLI [id number] [place] [address] [place] Lymphocytes (Bld) [#/Vol] 1.44 10*3/uL Normal 1.00-4.00 [facility] Comment on above: Order Comment: Speci men Type: BLOOD SPECIMENOrdering Facility: [facility] Address: [address] [place] [address] Performed By: #### 5 7021-8 ####[facility]ITALNCM[facility] [id number] [place] [address] [place] Lymphocytes/100 WBC (Bld) 14.5 % Normal [facility] Comment on above: Order Comment: Speci men Type: BLOOD SPECIMENOrdering Facility: [facility] Address: [address] [place] [address] Performed By: #### 5 7021-8 ####[facility]ITALNCM[facility] [id number] [place] [address] [place] MCH (RBC) [Entitic mass] 30.6 pg Normal 26.0-34.0 [facility] Comment on above: Order Comment: Speci men Type: BLOOD SPECIMENOrdering Facility: [facility] Address: [address] [place] [address] Performed By: #### 5 7021-8 ####[facility]ITALNCMOAB [facility] [id number] [place] [address] [place] MCHC (RBC) [Mass/Vol] 33.5 g/dL Normal 30.5-36.0 [facility] [place] Comment on above: Order Comment: Speci men Type: BLOOD SPECIMENOrdering Facility: [facility] Address: [address] [place] [address] Performed By: #### 5 7021-8 ####[facility] [id number] [place] [address] [place] MCV (RBC) [Entitic vol] 91.2 fL Normal 80.0-100.0 [facility] Comment on above: Order Comment: Speci men Type: BLOOD SPECIMENOrdering Facility: [facility] Address: [address] [place] [address] Performed By: #### 5 7021-8 ####[facility] MILLDELBERTWNCLIA [id number] [place] [address] [place] Monocytes (Bld) [#/Vol] 0.59 10*3/uL Normal <0.87 [facility] Comment on above: Order Comment: Speci men Type: BLOOD SPECIMENOrdering Facility: [facility] Address: [address] [place] [address] Performed By: #### 5 7021-8 ####[facility] MILLWGLENYSLIA [id number] [place] [address] [place] Monocytes/100 WBC (Bld) 6.0 % Normal [facility] Comment on above: Order Comment: Speci men Type: BLOOD SPECIMENOrdering Facility: [facility] Address: [address] [place] [address] Performed By: #### 5 7021-8 ####[facility]ITALNCLIA [id number] [place] [address] [place] Neutrophils (Bld) [#/Vol] 7.52 10*3/uL High 1.45-7.50 [facility] Comment on above: Order Comment: Speci men Type: BLOOD SPECIMENOrdering Facility: [facility] Address: [address] [place] [address] Performed By: #### 5 7021-8 ####[facility] MILLWNCLIA [id number] [place] [address] [place] Neutrophils/100 WBC (Bld) 76.0 % Normal [facility] Comment on above: Order Comment: Speci men Type: BLOOD SPECIMENOrdering Facility: [facility] Address: [address] [place] [address] Performed By: #### 5 7021-8 ####[facility] MILLSHAMOKIN DAMNCLIA [id number] [place] [address] [place] Nucleated RBC (Bld) [#/Vol] 10*3/uL Normal <0.01 [facility] Comment on above: Order Comment: Speci men Type: BLOOD SPECIMENOrdering Facility: [facility] Address: [address] [place] [address] Performed By: #### 5 7021-8 ####[facility] [id number] [place] [address] [place] Nucleated RBC/100 WBC (Bld) [Ratio] 0.0 /100 WBC Normal [facility] Comment on above: Order Comment: Speci men Type: BLOOD SPECIMENOrdering Facility: [facility] Address: [address] [place] [address] Performed By: #### 5 7021-8 ####[facility] [id number] [place] [address] [place] Platelet mean volume (Bld) [Entitic vol] 9.5 fL Normal 9.0-12.7 [facility] Comment on above: Order Comment: Speci men Type: BLOOD SPECIMENOrdering Facility: [facility] Address: [address] [place] [address] Performed By: #### 5 7021-8 ####[facility]ITAL[facility]CLIA [id number] [place] [address] [place] Platelets (Bld) [#/Vol] 268 10*3/uL Normal 150-400 [facility] Comment on above: Order Comment: Speci men Type: BLOOD SPECIMENOrdering Facility: [facility] Address: [address] [place] [address] Performed By: #### 5 7021-8 ####[facility]ITAL[facility]CL[facility] [id number] [place] [address] [place] RBC (Bld) [#/Vol] 4.22 10*6/uL Normal 3.90-5.20 [facility] Comment on above: Order Comment: Speci men Type: BLOOD SPECIMENOrdering Facility: [facility] Address: [address] [place] [address] Performed By: #### 5 7021-8 ####[facility] EASTWNCLIA [id number] [place] [address] [place] WBC (Bld) [#/Vol] 9.90 10*3/uL Normal 3.70-11.00 [facility] Comment on above: Order Comment: Speci men Type: BLOOD SPECIMENOrdering Facility: [facility] Address: [address] [place] [address] Performed By: #### 5 7021-8 ####[facility]ITALNCLIA [id number] [address] OF N[place] LEIOVon 08-17-2024 CNOV Office Visit (DAVID ) -------- RAMONA WAHL ([id number]) 1990 F Date Time Provider Department 08/17/24 10:20 AM JEANNIE TAYLOR During your visit today, we recorded the following information about you: Pulse Respiration Blood pressure Weight 91/minute 18/minute 98/76 53.3 kg Height 1.587 m Jeannie Taylor APRN.CNP 08/17/2024 10:50 AM Signed 08/17/2024 Patient presents with: Establish Care SUBJECTIVE: This is a 34 year old that is here today for Above Complaints. Currently following with OB for 12 weeks . Trying to eat healthy and stay active. Has some nausea and vomiting. Has Zofran to take Past medical, surgical, family, social hx, medications, allergies and health maintenance reviewed and updated. PAST MEDICAL HISTORY Diagnosis Date anxiety Hyperemesis gravidarum Hypothyroid infertility treatment Infertility, female PCOS (polycystic ovarian syndrome) ALLERGIES Patient has no known allergies. MEDICATIONS Current Outpatient Medications Medication Sig aspirin, enteric coated (ECOTRIN LOW STRENGTH) 81 mg EC tablet Take 1 tablet by mouth once daily. ondansetron orally disintegrating (ZOFRAN ODT) 4 mg disintegrating tablet Take 1 tablet by mouth every 8 hours as needed. No current facility-administered medications for this visit. Medications and allergies reviewed by this provider. SOCIAL HISTORY Social History Tobacco Use Smoking status: Never Smokeless tobacco: Never Vaping Use Vaping status: Never Used Substance Use Topics Alcohol use: Never Drug use: Never REVIEW OF SYSTEMS GENERAL: No weight loss, malaise or fevers HEENT: Negative for frequent or significant headaches, No changes in hearing or vision, no nose bleeds or other nasal problems NECK: Negative for lumps, goiter, pain and significant neck swelling RESPIRATORY: Negative for cough, hemoptysis, wheezing, COPD, dyspnea or shortness of breath CARDIOVASCULAR: Negative for chest pain, leg swelling, hypertension, CHF or palpitations GI: No diarrhea : No history of dysuria, frequency or incontinence PETROPHYSICAL ENGINEER: Negative for abnormal vaginal bleeding, abnormal vaginal discharge MUSCULOSKELETAL: Negative for joint pain or swelling, back pain or muscle pain SKIN: Negative for lesions, rash, and itching PSYCH: Negative for sleep disturbance, mood disorder and recent psychosocial stressors HEMATOLOGY/LYMPHOLOGY: Negative for prolonged bleeding, bruising easily or swollen nodes ENDOCRINE: Negative for cold or heat intolerance, polyuria, polydipsia and goiter NEURO: No history of headaches, syncope, paralysis, seizures or tremors All other reviewed and negative other than HPI. OBJECTIVE: BP 98/76 Pulse 91 Resp 18 Ht 158.7 cm (5' 2.48) Wt 53.3 kg (117 lb 9.6 oz) LMP 05/20/2024 SpO2 98% BMI 21.18 kg/m? . Vital signs reviewed by this provider. APPEARANCE Well appearing, alert, in no acute distress, well-hydrated, well nourished. EYES PERRLA, conjunctiva and sclera normal. EARS External ears normal, canals clear NECK Supple, no adenopathy; thyroid symmetric, normal size, no bruits HEART RRR with normal S1 and S2, no murmurs, no gallops, no JVD appreciated LUNG clear to auscultation. No wheezes, rhonchi or rales ABDOMEN bowel sounds normoactive, no bruits, soft, non-tender, non-distended EXTREMITIES Extremities normal, No deformities, No skin discoloration, and No edema SKIN Skin color, texture, turgor normal, no suspicious rashes or lesions to exposed skin Depression Screening Never done Anxiety Screening Never done Hepatitis B Vaccine(1 of 3 - 19+ 3-dose series) Never done Influenza Vaccine(1) due on 11/29/2024 Covid-19 Vaccine( - 2023- season) due on 08/17/2025 RSV Vaccine(1 - Risk 1-dose series) due on 01/31/2025 Cervical Cancer Screening due on 07/20/2029 DTaP,Tdap,Td Vaccine(3 - Td or Tdap) due on 09/20/2032 Hepatitis C Screening Completed HIV Screening Completed ASSESSMENT/PLAN: 1. Encounter for medical examination to establish care - ICD9: V70.9, ICD10: Z00.00 - Counseled on healthy diet and regular exercise - follow-up with OB as scheduled - Follow up for annual exam in one year Jeannie Taylor APRN.SEWING MACHINE ADJUSTER Prescription instructions reviewed with patient as applicable. Patient advised if symptoms do not improve or if symptoms worsen sooner, to contact their primary care physician. Potential red flag symptoms discussed with the patient. Reviewed appropriate action plan to take if red flag symptoms occur. Patient agreeable to treatment plan. Allergies As of Date: 08/17/2024 (No Known Allergies) Date Reviewed: 08/17/2024 Reviewed by: Jeannie Taylor APRN.SEWING MACHINE ADJUSTER - Fully Assessed Reason for Visit: Establish Care [42] Primary Visit Diagnosis:Encounter for medical examination to establish care [Z00.00] Prescriptions as of 08/17/2024 (more content not included)... Normal [facility] Examination level ultrasound on 08-17-2024 Indication First trimester anatomic survey Impression The patient is referred for a first trimester anatomy scan including nuchal translucency measurement as clinically indicated. - Single, live, intrauterine . - [place] rump length measurement is consistent with the established gestational age. - No malformations visualized on a complete first trimester anatomic assessment. - The nuchal translucency measurement is 1.9 mm. - Not all structural malformations can be detected by ultrasound examination. Maternal Structures: Right Ovary: Size 20 mm x 30 mm x 15 mm Recommendations - An anatomic survey at 18-20 weeks is recommended given no identified risk factors. Maternal Assessment Height 160 cm Height (ft) 5 ft Height (in) 3 in Method Transabdominal ultrasound examination, Color Doppler examination. View: Adequate visualization [place] . Number of fetuses: 1 Dating LMP on: 05/20/2024 GA by LMP 12 w + 5 d DEAN by LMP: 02/24/2025 GA by prior assessment 12 w + 5 d DEAN by prior assessment: 02/24/2025 Ultrasound examination on: 08/17/2024 GA by U/S based upon: CRL GA by U/S 12 w + 5 d DEAN by U/S: 02/24/2025 Assigned: based on the LMP, selected on 07/20/2024 Assigned GA 12 w + 5 d Assigned DEAN: 02/24/2025 General Evaluation Cardiac activity present Placenta: anterior Cord vessels: 3 vessel cord Amniotic fluid: normal amount Biometry Standard FHR 160 bpm CRL 63.6 mm 12w 5d 42% Hadlock NT 1.90 mm First Trimester Anatomy Calvarium: normal Falx cerebri: normal Choroid plexus: normal Profile: normal Nasal bone: normal Retronasal triangle: normal Maxilla: normal Mandible: normal Nuchal translucency: Unremarkable Situs: normal Cardiac position: normal Cardiac axis: normal 4-chamber view: normal 4-chamber view with color: normal 0-hufwub-aosyhpt view: normal Abdominal cord insertion: normal Stomach: normal Kidneys: normal Bladder: normal Color doppler of perivesical umbilical arteries: normal Vertebral alignment: normal Arms: normal Hands: normal Legs: normal Feet: normal Maternal Structures Uterus / Cervix Uterus: Visualized Uterus length 99 mm Uterus width 102 mm Uterus height 93 mm Uterus Vol 488.4 cm Ovaries / Tubes / Adnexa Rt ovary: Visualized Rt ovary D1 20 mm Rt ovary D2 30 mm Rt ovary D3 15 mm Rt ovary Vol 4.5 cm Lt ovary: Visualized Performed By: Sully Thomas RDMS Read By: Roya Smith M.D. MATERNAL MEDICINE [facility] Radiology Study observation (narrative) [facility] Free T4 [Mass/Vol]on 025 Interpretation and review of laboratory results Normal [facility] HBV surface Ag Ser Qlon 03- HBV surface Ag Ql (S) Negative Normal Negative [facility] [place] Comment on above: Order Comment: Speci men Type: BLOOD SPECIMENOrdering Facility: [facility] Address: [address] [place] [address] Performed By: #### 7 3752-8, 5-3, 46048-0 ####[facility] LABCLIA [id number] [place] [address] [place] HCV Ab Ser Qlon 08-17-2024 HCV Ab Ql (S) Negative Normal Negative [facility] Comment on above: Order Comment: Speci men Type: BLOOD SPECIMENOrdering Facility: [facility] Address: [address] [place] [address] Result Comment: The result suggests no evidence of infection with Hepatitis C virus. Should recent infection be suspected, repeat testing may be considered 4-6 weeks after this draw. Performed By: #### 1 6128-1 ####[facility] LABCLIA [id number] [place] [address] [place] HIV 1+2 Ab IA Qlon HIV 1 and 2 Ab IA.rapid Nom (S/P/Bld) Normal [facility] Comment on above: Order Comment: Speci men Type: BLOOD SPECIMENOrdering Facility: [facility] Address: [address] [place] [address] Result Comment: Test not indicated. Performed By: #### 7 3752-8, 5-3, 72497-9 ####[facility] LABCLIA [id number] [place] [address] [place] HIV 1+2 Ab+HIV1 p24 Ag IA Ql Non-Reactive Normal Nonreactive [facility] Comment on above: Order Comment: Speci men Type: BLOOD SPECIMENOrdering Facility: [facility] Address: [address] [place] [address] Performed By: #### 7 3752-8, 5195-3, 01704-1 ####[facility] LABCLIA [id number] [place] [id number] [place] HIV immunoassay testing algorithm interpretation (S/P/Bld) [Interp] Normal [facility] Comment on above: Order Comment: Speci men Type: BLOOD SPECIMENOrdering Facility: [facility] Address: [address] [place] [address] Result Comment: No e vidence of HIV-1 or HIV-2 infection. Should recent infection be suspected, repeat testing may be considered 2-3 weeks after this draw. [facility] Rev. Code 3701.243(E): This information has been disclosed to you from confidential records protected from disclosure by state law. ???You shall make no further disclosure of this information without the specific, written, and informed release of the individual to whom it pertains or as otherwise permitted by state law. A general authorization for the release of medical or other information is not sufficient for the purpose of the release of HIV test results or diagnoses. Performed By: #### 7 3752-8, 5195-3, 96309-3 ####[facility] LABCLIA [id number] [place] [address] [place] HbA1c (Bld)on 08-17-2024 Average glucose Estimated from glycated hemoglobin (Bld) [Mass/Vol] 80 mg/dL Normal [facility] Comment on above: Order Comment: Speci men Type: BLOOD SPECIMENOrdering Facility: [facility] Address: [address] [place] [address] Result Comment: eAG: (Estimated average glucose) is a calculated value from HgbA1c and is development representative of the average blood glucose level in the last 2-3 month period. Performed By: #### 5 5454-3 ####[facility] LABIA [id number] [place] [address] [place] HbA1c (Bld) [Mass fraction] 4.4 % Normal 4.3-5.6 [facility] Comment on above: Order Comment: Speci men Type: BLOOD SPECIMENOrdering Facility: [facility] Address: [address] [place], [place] [address] Result Comment: [place] Diabetes Association guidelines indicate that patients with HgbA1c in the range 5.7-6.4% are at increased risk for development of diabetes, and intervention by lifestyle modification may be beneficial. HgbA1c greater or equal to 6.5% is considered diagnostic of diabetes. Performed By: #### 5 5454-3 ####[facility] LABCLIA [id number] [place] [address] [place] RUBELLA IGG ANTIBODYon 08-17 RUBELLA IGG AB, QUAL Positive Normal Positive [facility] Comment on above: Order Comment: Speci men Type: BLOOD SPECIMENOrdering Facility: [facility] Address: [address] [place] [address] Result Comment: The result suggests recent or past exposure to Rubella virus or history of Rubella vaccination. Positive result may also be seen due to presence of passively-transferred antibodies. Please correlate with patient's history. Performed By: #### R UBIGG ####[facility] LABCLIA [id number] [place] [address] [place] Reagin and Treponema pallidu m IgG and IgM [Interp]on 08-17-2024 T. pallidum IgG+IgM IA Ql (S) Non-Reactive Normal Nonreactive [facility] Comment on above: Order Comment: Speci men Type: BLOOD SPECIMENOrdering Facility: [facility] Address: [address] [place] [address] Performed By: #### 7 3752-8, 5195-3, 54874-1 ####[facility] LABIA [id number] [place] [address] [place] Reagin+T pallidum IgG+IgM Se rPl-Impon 08-17-2024 Reagin and Treponema pallidum IgG and IgM [Interp] Cannot exclude recent Treponemal infection if specimen collected within 7-10 days after appearance of suspect lesions or 2-3 weeks after an exposure. Clinical correlation is required. Normal [facility] Comment on above: Order Comment: Speci men Type: BLOOD SPECIMENOrdering Facility: [facility] Address: [address] [place] [address] Performed By: #### 7 3752-8, 5195-3, 49023-6 ####[facility] LABCLIA [id number] [place] [address] [place] T4 FREE/FREE THYROXINEon Free T4 [Mass/Vol] 1.1 ng/dL 0.9 - 1.7 ng/dL [facility] T4 Free SerPl-mCncon 025 Free T4 [Mass/Vol] 1.1 ng/dL Normal 0.9-1.7 [facility] Comment on above: Order Comment: Mega figueroa Type: BLOOD SPECIMEN [facility] Address: [address] [place] [address] Performed By: #### T SPN #### [facility] CLIA [id number] [address] [place] [address] [place] TSH SerPl-aCncon 08-17-2024 TSH Qn 1.420 m[IU]/L Normal 0.270-4.200 [facility] Comment on above: Order Comment: Mega figueroa Type: BLOOD SPECIMEN [facility] Address: [address] [place] [address] Result Comment: If t he patient is , TSH reference range varies by gestational period: First Trimester (weeks 9-12): 0.180-2.990 mIU/L Second Trimester: 0.110-3.980 mIU/L Third Trimester: 0.480-4.710 mIU/L Dionisio Meyers et al. A Practical Approach for the Verifications and Determination of Site- and Trimester-Specific Reference Intervals for Thyroid Function tests in . Thyroid, 2019:29:3:412-420. Héctor Arechiga et al. 2017 Guidelines of the [place] Thyroid [employer] for the Diagnosis and Management of Thyroid Disease during and the . Thyroid, 2017:27:3:315-389. Performed By: #### T SPN #### [facility] CLIA [id number] [address] [place] [address] [place] TYPE + SCREEN PRENATALon ABO O Normal [facility] Comment on above: Order Comment: Speci men Type: BLOOD SPECIMEN [facility] Address: [address] [place] [address] Performed By: #### T SPN #### [facility] CLIA [id number] [address] [place] [address] [place] Rh Nom (Bld) Positive Normal [facility] Comment on above: Order Comment: Speci men Type: BLOOD SPECIMEN [facility] Address: [address] [place] [address] Performed By: #### T SPN #### [facility] CLIA [id number] [address] [place] [address] [place] TYPE AND SCREEN EXPIRATION 08/20/2024 23:59 Normal [facility] Comment on above: Order Comment: Speci men Type: BLOOD SPECIMEN [facility] Address: [address] [place] [address] Performed By: #### T SPN #### [facility] CLIA [id number] [address] [place] [address] [place] Bacteria Ur Culton Bacteria identified Cx Nom (U) ORGANISM ID: 1 10,000 -<50,000 CFU/ml Normal urogenital mateo Normal [facility] Comment on above: Performed By: #### T SPN #### [facility] CLIA [id number] [address] [place] [address] [place] C. trachomatis+N. gonorrhoea e DNA TRISH+probe Ql (Unsp spec)on 07-20-2024 C. trachomatis rRNA TRISH+probe Ql (Unsp spec) Not detected Normal Not detected [facility] Comment on above: Order Comment: Speci men Type: BLOOD SPECIMEN [facility] Address: [address] [place] [address] Performed By: #### T SPN #### [facility] CLIA [id number] [address] [place] [address] [place] N. gonorrhoeae rRNA TRISH+probe Ql (Unsp spec) Not detected Normal Not detected [facility] Comment on above: Order Comment: Speci men Type: BLOOD SPECIMEN [facility] Address: [address] [place] [address] Performed By: #### T SPN #### [facility] CLIA [id number] [address] [place] [address] [place] HIGH RISK HUMAN PAPILLOMA PALMIRA (HPV), PCR FOR DETECTION AND GENOTYPINGon 07-20-2024 HPV 16 Ag Ql (Unsp spec) Not detected Normal Not detected [facility] Comment on above: Order Comment: Speci men Type: FLUID SPECIMENOrdering Facility: [facility] Address: [address] [place] [address] Performed By: #### H PVHRT ####[facility] [id number] [place] [address] [place] HPV 18 Ag Ql (Unsp spec) Not detected Normal Not detected [facility] Comment on above: Order Comment: Speci men Type: FLUID SPECIMENOrdering Facility: [facility] Address: [address] [place] [address] Performed By: #### H PVHRT ####[facility] LABIA [id number] [place] [address] [place] HPV 31+33+35+39+45+51+52+ 56+58+59+66+68 DNA TRISH+probe Ql (Cvx) Not detected Normal Not detected [facility] Comment on above: Order Comment: Speci men Type: FLUID SPECIMENOrdering Facility: [facility] Address: [address] [place] [address] Result Comment: High Risk HPV Other Type includes HPV types 31, 33, 35, 39, 45, 51, 52, 56, 58, 59, 66 and 68. Performed By: #### H PVHRT ####[facility] LABCLIA [id number] [place] [id number] [place] PAP TESTon 07-20-2024 ADEQUACY Normal [facility] Comment on above: Order Comment: Speci men Type: FLUID SPECIMEN [facility] Address: [address] [place] [address] Result Comment: Sati sfactory for interpretation. Transformation zone present Performed By: #### L [id number] #### [facility] CLIA [id number] [address] [place] [address] [place] CASE REPORT Normal [facility] Comment on above: Order Comment: Speci men Type: FLUID SPECIMEN [facility] Address: [address] [place] [address] Result Comment: Gyne cologic Cytology Report Case: [id number] Authorizing Provider: Marielle Jiménez APRN.SEWING MACHINE ADJUSTER Collected: 07/20/2024 10:17 AM Ordering Location: OB/Gynecology Received: 07/20/2024 10:50 AM First Screen: Toshia Cordova, ALBA, ASCP Specimen: Pap Test, ThinPrep, Cervix Performed By: #### L [id number] #### [facility] CLIA [id number] [address] [place] [address] [place] CLINICAL HISTORY, CYTOLOGY, PETROPHYSICAL ENGINEER Routine Exam Normal [facility] Comment on above: Order Comment: Speci men Type: FLUID SPECIMEN [facility] Address: [address] [place] [address] Performed By: #### L [id number] #### [facility] CLIA [id number] [address] [place] [address] [place] FINAL PERFORMING LAB Normal [facility] Comment on above: Order Comment: Speci men Type: FLUID SPECIMEN Ordering Facility: [facility] Address: [address] [place] [address] Result Comment: Tech nical component, tar worker screening performed at [facility], [facility] [place] [address] CLIA# [id number] Diagnostic interpretation performed at [facility], [address] [place] [address] [place] [address] CLIA# [id number] Law Writer: Wilmer Lewis M.D. Performed By: #### L [id number] #### [facility] CLIA [id number] [address] [place], [place] [id number] [place] INTERPRETATION, CYTOLOGY, PETROPHYSICAL ENGINEER Normal [facility] Comment on above: Order Comment: Speci men Type: FLUID SPECIMEN Ordering Facility: [facility] Address: [address] [place] [address] Result Comment: Nega tive for intraepithelial lesion or malignancy. at 1352 EST Performed By: #### L [id number] #### [facility] CLIA [id number] [address] [place] [address] [place] LMP 05/20/2024 Normal [facility] Comment on above: Order Comment: Speci men Type: FLUID SPECIMEN Ordering Facility: [facility] Address: [address] [place] [address] Performed By: #### L [id number] #### [facility] CLIA [id number] [address] [place], [place] [id number] [place] PAP DISCLAIMER COMMENT The Pap Smear is a screening test for cervical cancer. False negative results occur with all screening tests, emphasizing the need for rescreening at recommended intervals, and clinical correlation. Normal [facility] Comment on above: Order Comment: Speci men Type: FLUID SPECIMEN Ordering Facility: [facility] Address: [address] [place] [address] Performed By: #### L [id number] #### [facility] CLIA [id number] [address] DESK [address] PAP FUR FARMER COMMENT This specimen has be en analyzed by the ThinPrep Imaging System, an automated imaging and review system, which assists the laboratory in evaluating cells on ThinPrep Pap tests. Following automated imaging, selected de la paz from every slide are reviewed by a tar worker. Normal [facility] Comment on above: Order Comment: Speci men Type: FLUID SPECIMEN Ordering Facility: [facility] Address: [address] [place] [address] Performed By: #### L [id number] #### [facility] CLIA [id number] [address] [place] [address] POC PATTERNMAKER APPRENTICE METAL ULTRASOUNDon 07-20-19 Indication Confirmation of intrauterine . Confirmation of cardiac activity. Estimation of gestational age Impression cardiac activity is visualized, CRL is appropriate for clinical dates, corresponding to DEAN 02/24/25 Recommendations Follow up for 1st Trimester Anatomy with Nuchal Translucency as clinically indicated if desired. Method Transabdominal and transvaginal ultrasound examination. View: Adequate visualization [place] . Number of embryos: 1 Dating LMP on: 05/20/2024 GA by LMP 8 w + 5 d DEAN by LMP: 02/24/2025 Ultrasound examination on: 07/20/2024 GA by U/S based upon: CRL GA by U/S 8 w + 0 d DEAN by U/S: 03/01/2025 Assigned: based on the LMP, selected on 07/20/2024 Assigned GA 8 w + 5 d Assigned DEAN: 02/24/2025 Biometry Standard FHR 176 bpm CRL 16.7 mm 8w 0d 5% Hadlock Assessment Gestational sac: visualized Location: intrauterine Yolk sac: visualized Embryo: visualized CRL 16.7 mm 8w 0d 5% Hadlock Cardiac activity: present FHR 176 bpm General Evaluation Cardiac activity present. FHR 176 bpm. movements: present Performed By: Marielle Jiménez CNP Read By: Marielle Jiménez CNP MATERNAL MEDICINE [facility] Radiology Study observation (narrative) [facility] TRICHOMONAS VAGINALIS NAATon 07-20-2024 T. vaginalis DNA TRISH+probe Ql (Unsp spec) Not detected Normal Not detected [facility] Comment on above: Order Comment: Speci men Type: BLOOD SPECIMEN Ordering Facility: [facility] Address: [address] [place] [address] Performed By: #### T SPN #### [facility] CLIA [id number] [address] [facility] [place] [id number] [address] [place] Basic Metabolic Profile (BMP )on 07-17-2024 BUN/CRE 24.1 RATIO High 10-20 [facility] Comment on above: Performed By: #### L 501.2450, L700.8000, L500.2500, L100.0100, L500.3400 #### [facility] Laboratory [address] [place], [address] CA,Total 9.6 mg/dL Normal 8.5-10.1 [facility] Comment on above: Performed By: #### L 501.2450, L700.8000, L500.2500, L100.0100, L500.3400 #### [facility] [address] [place], [address] Chloride [Moles/Vol] 102 mmol/L Normal 98-107 [facility] Comment on above: Performed By: #### L 501.2450, L700.8000, L500.2500, L100.0100, L500.3400 #### [facility] [address] [place], [address] CO2 [Moles/Vol] 25.0 mmol/L Normal 21.0-32.0 [facility] Comment on above: Performed By: #### L 501.2450, L700.8000, L500.2500, L100.0100, L500.3400 #### [facility] [address] [place], [address] Creatinine [Mass/Vol] 0.75 mg/dL Normal 0.55-1.02 [facility] Comment on above: Result Comment: The validity of the calculated GFR GFRAA in patients over 70 years has not been determined. Clinical correlation is essential. Performed By: #### L 501.2450, L700.8000, L500.2500, L100.0100, L500.3400 #### [facility] [address] [place], [address] ECRCL 89.08 ml/min Normal [facility] Comment on above: Performed By: #### L 501.2450, L700.8000, L500.2500, L100.0100, L500.3400 #### [facility] [address] [place], [address] EST GFR - AA 116 mL/min Normal >60 [facility] Comment on above: Result Comment: Afri can Macedonian GFR Calc Performed By: #### L 501.2450, L700.8000, L500.2500, L100.0100, L500.3400 #### [facility] [address] [place], [address] GAP 8 Normal 5-15 [facility] Comment on above: Performed By: #### L 501.2450, L700.8000, L500.2500, L100.0100, L500.3400 #### [facility] [address] [place], [address] GFR/1.73 sq M.predicted among non-blacks MDRD (S/P/Bld) [Vol rate/Area] 95 mL/min/{1.73_m2} Normal >60 [facility] Comment on above: Result Comment: Non- GFR Calc Performed By: #### L 501.2450, L700.8000, L500.2500, L100.0100, L500.3400 #### [facility] [address] [place], [address] Glucose [Mass/Vol] 81 mg/dL Normal 74-106 [facility] Comment on above: Performed By: #### L 501.2450, L700.8000, L500.2500, L100.0100, L500.3400 #### [facility] [address] [place], [address] Potassium [Moles/Vol] 3.4 mmol/L Low 3.5-5.1 [facility] Comment on above: Performed By: #### L 501.2450, L700.8000, L500.2500, L100.0100, L500.3400 #### [facility] [address] [place], [address] Sodium [Moles/Vol] 136 mmol/L Normal 136-145 [facility] Comment on above: Performed By: #### L 501.2450, L700.8000, L500.2500, L100.0100, L500.3400 #### [facility] [address] [place], [address] Urea nitrogen [Mass/Vol] 18 mg/dL Normal 7-18 [facility] Comment on above: Performed By: #### L 501.2450, L700.8000, L500.2500, L100.0100, L500.3400 #### [facility] [address] [place], [address] CBC W/Diff, Automatedon 02 Absolute Lymph 1.19 X10 3/uL Normal 0.83-4.51 [facility] Comment on above: Performed By: #### L 501.2450, L700.8000, L500.2500, L100.0100, L500.3400 #### [facility] [address] [place], [address] Absolute Neut 10.2 X10 3/uL High 2.0-7.7 [facility] Comment on above: Performed By: #### L 501.2450, L700.8000, L500.2500, L100.0100, L500.3400 #### [facility] [address] [place], [address] Basophils/100 WBC (Bld) 0.3 % Normal 0-1 [facility] Comment on above: Performed By: #### L 501.2450, L700.8000, L500.2500, L100.0100, L500.3400 #### [facility] [address] [place], [address] Eosinophils/100 WBC (Bld) 1.0 % Normal 0-5 [facility] Comment on above: Performed By: #### L 501.2450, L700.8000, L500.2500, L100.0100, L500.3400 #### [facility] [address] [place], [address] Erythrocyte distribution width (RBC) [Ratio] 12.4 % Normal 11.6-14.6 [facility] Comment on above: Performed By: #### L 501.2450, L700.8000, L500.2500, L100.0100, L500.3400 #### [facility] [address] [place], [address] Hematocrit (Bld) [Volume fraction] 43.1 % Normal 37-47 [facility] Comment on above: Performed By: #### L 501.2450, L700.8000, L500.2500, L100.0100, L500.3400 #### [facility] [address] [place], [address] Hemoglobin (Bld) [Mass/Vol] 14.8 g/dL Normal 12.0-15.0 [facility] Comment on above: Performed By: #### L 501.2450, L700.8000, L500.2500, L100.0100, L500.3400 #### [facility] [address] [place], [address] IG% 0.600 Normal 0.0-0.9 [facility] Comment on above: Result Comment: IG% - Immature Granulocytes (promyelocytes, myelocytes and metamyelocytes) > 1% indicates that a LEFT SHIFT is Present. Performed By: #### L 501.2450, L700.8000, L500.2500, L100.0100, L500.3400 #### [facility] [address] [place], [address] Lymphocytes/100 WBC (Bld) 9.6 % Low 19-41 [facility] Comment on above: Performed By: #### L 501.2450, L700.8000, L500.2500, L100.0100, L500.3400 #### [facility] [address] [place], [address] MCH (RBC) [Entitic mass] 30.1 pg Normal 27.0-32.0 [facility] Comment on above: Performed By: #### L 501.2450, L700.8000, L500.2500, L100.0100, L500.3400 #### [facility] [address] [place], [address] MCHC (RBC) [Mass/Vol] 34.3 g/dL Normal 32-36 [facility] Comment on above: Performed By: #### L 501.2450, L700.8000, L500.2500, L100.0100, L500.3400 #### [facility] [address] [place], [address] MCV (RBC) [Entitic vol] 87.6 fL Normal 81-99 [facility] Comment on above: Performed By: #### L 501.2450, L700.8000, L500.2500, L100.0100, L500.3400 #### [facility] [address] [place], [address] Monocytes/100 WBC (Bld) 6.3 % Normal 0-10 [facility] Comment on above: Performed By: #### L 501.2450, L700.8000, L500.2500, L100.0100, L500.3400 #### [facility] [address] [place], [address] Neutrophils/100 WBC (Bld) 82.2 % High 47-70 [facility] Comment on above: Performed By: #### L 501.2450, L700.8000, L500.2500, L100.0100, L500.3400 #### [facility] [address] [place], [address] Nucleated RBC (Bld) [#/Vol] 0 10*3/uL Normal 0-5 [facility] Comment on above: Performed By: #### L 501.2450, L700.8000, L500.2500, L100.0100, L500.3400 #### [facility] [address] [place], [address] Platelet mean volume (Bld) [Entitic vol] 9.9 fL Normal 6.2-12.0 [facility] Comment on above: Performed By: #### L 501.2450, L700.8000, L500.2500, L100.0100, L500.3400 #### [facility] [address] [place], [address] Platelets (Bld) [#/Vol] 211 10*3/uL Normal 150-450 [facility] Comment on above: Performed By: #### L 501.2450, L700.8000, L500.2500, L100.0100, L500.3400 #### [facility] [address] [place], [address] RBC (Bld) [#/Vol] 4.92 10*6/uL Normal 4.2-5.4 [facility] Comment on above: Performed By: #### L 501.2450, L700.8000, L500.2500, L100.0100, L500.3400 #### [facility] [address] [place], [address] RDW SD 40.0 fl Normal 35.1-43.9 [facility] Comment on above: Performed By: #### L 501.2450, L700.8000, L500.2500, L100.0100, L500.3400 #### [facility] [address] [place], [address] WBC (Bld) [#/Vol] 12.4 10*3/uL High 4.4-11.0 [facility] Comment on above: Performed By: #### L 501.2450, L700.8000, L500.2500, L100.0100, L500.3400 #### [facility] [address], [address] Emergency Department Summary on 07-17-2024 Emergency Department Summary [facility] Medical Records Department [address] [place] [address] Emergency Department Summary 07/17/24 MR#: [id number] Acct: [id number] Name: RAMONA WAHL Rep #: [id number] : 1990 34 From: Maxim Francisco DO PCP: Care Physician,No Primary Status:DEP ER Location: ED HPI History of Present Illness Chief Complaint: Nausea/Vomiting Informant: patient and spouse/S.O. Narrative Narrative: 34-year-old female presenting to the emergency room with vomiting. Patient states that she is about 6 weeks . She has an appointment on Friday with Dr. Castro for obstetrics. She is G 3P2. She states she had hyperemesis with #1. She states that earlier this week she called and they put her on folic acid Pepcid and Reglan. She states she stopped the folic acid and Pepcid because it was upsetting her stomach. She denies any current pain. No vaginal bleeding. She notes decreased urination. She states she continues to vomit all times of the day. She states that she was advised that if she continues to vomit that she should come to emergency. [facility] Medical History Vaginal delivery PCOS (polycystic ovarian syndrome) Anxiety History of hypothyroidism Migraines Home Medications ???Medication ???Instructions ???Recorded ???Last Taken ???Type promethazine 25 mg tablet 25 mg PO TID PRN nausea and Unknown Rx vomiting #20 tabs Allergy/AdvReac Type Severity Reaction Status Date / Time No Known Allergies Allergy Verified 07/17/24 12:39 Surgical History History of cholecystectomy Social History Smoking Status: Never smoker ROS ROS ED Constitutional Constitutional ED: Denies chills, fever(s) or weight loss Eyes Eyes: Denies change in vision or diplopia ENT ENT ED: Denies ear pain, rhinorrhea or sore throat Cardiovascular Cardiovascular: Denies chest pain, orthopnea, palpitations or racing heartbeat Respiratory/Chest Respiratory/Chest: Denies cough, dyspnea or orthopnea Gastrointestinal Gastrointestinal: Reports nausea and vomiting; Denies abdominal pain or diarrhea Genitourinary Genitourinary ED: Reports other Details: Decreased urination ; Denies dysuria, hematuria or urinary frequency Musculoskeletal Musculoskeletal: Denies arthralgias or myalgias Integumentary Denies abscess or rash Neurologic Neurologic: Denies headache(s) or weakness Psychiatric Psychiatric: Denies anxiety, depression, suicidal ideation or suicidal thoughts Endocrine Endocrinology: Denies polydipsia, polyphagia or polyuria Allergic/Immunologic Allergic/Immunologic ED: Denies mouth swelling, tongue swelling or urticaria EXAM Physical Exam Const Vital Signs: 07/17/24 12:38 Temperature 98.2 F Temperature Source Oral Pulse Rate 90 Respiratory Rate 16 Blood Pressure 119/78 Blood Pressure Mean 91 Pulse Ox 98 Oxygen Delivery Method Room Air Positive well nourished and well developed General Appearance ED: well developed and NAD HEENT Reports normocephalic, head/scalp atraumatic and moist mucous membranes Eyes PERRL and EOMs intact bilaterally Neck no lymphadenopathy, supple and no JVD Resp normal respiratory effort and clear to auscultation bilaterally Cardio regular rate, regular rhythm and no murmurs GI normal to inspection, nondistended, normoactive bowel sounds and non-tender Palpation: soft Back/Spine no CVA tenderness and normal ROM Extremity normal to inspection General Extremety ED: Negative for edema General Extremity: Negative for edema Neuro oriented x3 and CN's II-XII intact bilaterally Sensorium / Orientation: alert Motor Exam: strength 5/5 throughout Psych mental status grossly normal Mood Affect: Negative for depressed or tearful Skin no rashes or lesions noted and no wounds MDM MDM MDM Narrative Medical decision making narrative: Differential diagnosis includes but not limited viral syndrome hyperemesis gravidarum dehydration electrolyte abnormality acute kidney injury White count 12.4 hemoglobin is 14.8 BMP shows normal BUN creatinine anion gap is 8 CO2 level is 25. Normal LFTs lipase 25 urinalysis demonstrates 150 ketones 30 protein no overt infection. Patient received IV fluids. I spoke with on-call obstetrics for Dr. Castro. They recommended Phenergan. Patient states that this did seem to help center of her stomach. She is trying a popsicle. History Record Review Discussion w/independent historian: Patient Lab Data Attestation: I reviewed the patient's lab results. Labs: Laboratory Results - last 24 hr 07/17/24 13:05 WBC 12.4 H RBC 4.92 (more content not included)... Normal [facility] Lipaseon 07-17-2024 Lipase [Catalytic activity/Vol] 25 U/L Low 73-393 [facility] Comment on above: Performed By: #### L 501.2450, L700.8000, L500.2500, L100.0100, L500.3400 #### [facility] [address] [place], [place], [address] Liver Profileon 07-17-2024 Albumin [Mass/Vol] 3.7 g/dL Normal 3.2-5.0 [facility] Comment on above: Performed By: #### L 501.2450, L700.8000, L500.2500, L100.0100, L500.3400 #### [facility] [address] [place], [place], [id number] ALK P 63 U/L Normal 45-117 [facility] Comment on above: Performed By: #### L 501.2450, L700.8000, L500.2500, L100.0100, L500.3400 #### [facility] [address] [place], [address] ALT [Catalytic activity/Vol] 24 U/L Normal 13-56 [facility] Comment on above: Performed By: #### L 501.2450, L700.8000, L500.2500, L100.0100, L500.3400 #### [facility] [address] [place], [address] AST [Catalytic activity/Vol] 18 U/L Normal 15-37 [facility] Comment on above: Performed By: #### L 501.2450, L700.8000, L500.2500, L100.0100, L500.3400 #### [facility] [address] [place], [address] Bilirubin [Mass/Vol] 0.90 mg/dL Normal 0.20-1.00 [facility] Comment on above: Result Comment: For patients on eltrombopag therapy, use of Dimension [place] TBIL is not recommended. Performed By: #### L 501.2450, L700.8000, L500.2500, L100.0100, L500.3400 #### [facility] [address] [place], [address] Bilirubin.direct [Mass/Vol] 0.28 mg/dL Normal 0.00-0.30 [facility] Comment on above: Performed By: #### L 501.2450, L700.8000, L500.2500, L100.0100, L500.3400 #### [facility] [address] [place], [address] Globulin (S) [Mass/Vol] 4.1 g/dL Normal 2.2-4.2 [facility] Comment on above: Performed By: #### L 501.2450, L700.8000, L500.2500, L100.0100, L500.3400 #### [facility] [address] [place], [address] T PROT 7.8 g/dL Normal 6.4-8.2 [facility] Comment on above: Performed By: #### L 501.2450, L700.8000, L500.2500, L100.0100, L500.3400 #### [facility] [address] [place], [address] Urinalysis, Completeon 07-17 RBC 0 SEEN Normal 0-5 [facility] Comment on above: Order Comment: CLEAN CATCH Performed By: #### L 400.0001 #### [facility] [address] [place], [address] WBC 0-5 SEEN Normal 0-5 [facility] Comment on above: Order Comment: CLEAN CATCH Performed By: #### L 400.0001 #### [facility] [address] [place], [address] EPI,SQUAMOUS 0-5 SEEN Normal 5-10 [facility] Comment on above: Order Comment: CLEAN CATCH Performed By: #### L 400.0001 #### [facility] [address] [place], [address] Mucus Ql (Urine sed) 3+ /hpf Normal [facility] Comment on above: Order Comment: CLEAN CATCH Performed By: #### L 400.0001 #### [facility] [address] [place], [address] BACTERIA 0 SEEN Normal None Seen [facility] Comment on above: Order Comment: CLEAN CATCH Performed By: #### L 400.0001 #### [facility] [address] [place], [address] hCG Titer Quant., Serumon HCG QUANT. 771675 mIU/mL High 1-3 [facility] Comment on above: Result Comment: hCG levels with Gestational Age Gestational Age hCG mIU/mL (IU/L) 0.2 - 1 week 5 - 50 1-2 weeks 50 - 500 2-3 weeks 100 - 5000 3-4 weeks 500 - 92070 4-5 weeks 1000 - 29936 5-6 weeks 90185 - 100,000 6-8 weeks 34332 - 200,000 2-3 months 88594 - 100,000 Performed By: #### L 501.2450, L700.8000, L500.2500, L100.0100, L500.3400 #### [facility] [address] [place], [address] Comprehensive metabolic 2000 panelOrdered By: Bessy Bishop on 07-12-2024 Albumin [Mass/Vol] 4.7 g/dL 3.9 - 4.9 g/dL [facility] ALP [Catalytic activity/Vol] 57 U/L 34 - 123 U/L [facility] ALT [Catalytic activity/Vol] 17 U/L 7 - 38 U/L [facility] Anion gap [Moles/Vol] 11 mmol/L 8 - 15 mmol/L [facility] AST [Catalytic activity/Vol] 20 U/L 13 - 35 U/L [facility] Bilirubin [Mass/Vol] 0.7 mg/dL 0.2 - 1 .3 mg/dL [facility] Calcium [Mass/Vol] 10 mg/dL 8.5 - 10. 2 mg/dL [facility] Chloride [Moles/Vol] 101 mmol/L 98 - 10 7 mmol/L [facility] CO2 [Moles/Vol] 22 mmol/L 22 - 30 mmol/L [facility] Creatinine [Mass/Vol] 0.62 mg/dL 0.58 - 0.96 mg/dL [facility] GFR/1.73 sq M.predicted among non-blacks MDRD (S/P/Bld) [Vol rate/Area] 122 mL/min/{1.73_m2} - PINF [facility] Comment on above: Estimated Glomerular Filtration Rate (eGFR) is calculated using the 2020 CKD-EPI creatinine equation. This equation utilizes serum creatinine, sex, and age as parameters. The creatinine assay has traceable calibration to isotope dilution-mass spectrometry. Refer to KDIGO guidelines for clinical interpretation. In patients with unstable renal function, e.g. those with acute kidney injury, the eGFR may not accurately reflect actual GFR. Glucose [Mass/Vol] 114 mg/dL High 74 - 99 mg/dL [facility] Comment on above: The [place] Di[employer] (ADA) provides guidance for cutoff values for fasting glucose and random glucose. The ADA defines fasting as no caloric intake for at least 8 hours. Fasting plasma glucose results between 100 to 125 mg/dL indicate increased risk for diabetes (prediabetes). Fasting plasma glucose results greater than or equal to 126 mg/dL meet the criteria for diagnosis of diabetes. In the absence of unequivocal hyperglycemia, results should be confirmed by repeat testing. In a patient with classic symptoms of hyperglycemia or hyperglycemic crisis, random plasma glucose results greater than or equal to 200 mg/dL meet the criteria for diagnosis of diabetes. Reference: Standards of Medical Care in Diabetes 2016, [place] [employer]. Diabetes Care. 2016.39(Suppl 1). Interpretation and review of laboratory results Abnormal [facility] Potassium [Moles/Vol] 4 mmol/L 3.7 - 5.1 mmol/L [facility] Protein [Mass/Vol] 7.5 g/dL 6.3 - 8.0 g/dL [facility] Sodium [Moles/Vol] 134 mmol/L Low 136 - 144 mmol/L [facility] Urea nitrogen [Mass/Vol] 20 mg/dL 7 - 21 mg/dL [facility] Comprehensive metabolic 2000 panelon 07-12-2024 Albumin [Mass/Vol] 4.7 g/dL Normal 3.9-4.9 [facility] Comment on above: Order Comment: Mega figueroa Type: BLOOD SPECIMEN Ordering Facility: [facility] Address: [address] [place] [address] Performed By: #### T SPN #### [facility]LOOD [facility] [id number] [address] [place] [address] [place] ALP [Catalytic activity/Vol] 57 U/L Normal 34-123 [facility] Comment on above: Order Comment: Mega figueroa Type: BLOOD SPECIMEN Ordering Facility: [facility] Address: [address] [place], [place] [id number] Performed By: #### T SPN #### [facility] MAIN BLOOD BANK CLIA [id number] [address] [place] [address] [place] ALT [Catalytic activity/Vol] 17 U/L Normal 7-38 [facility] Comment on above: Order Comment: Speci men Type: BLOOD SPECIMEN Ordering Facility: [facility] Address: [address] [place] [address] Performed By: #### T SPN #### [facility] MAIN [facility]LOOD BANK CLIA [id number] [address] [place] [address] [place] Anion gap [Moles/Vol] 11 mmol/L Normal 8-15 [facility] Comment on above: Order Comment: Speci men Type: BLOOD SPECIMEN Ordering Facility: [facility] Address: [address] [place] [address] Performed By: #### T SPN #### [facility]IN BLOOD BANK CLIA [id number] [address] [place] [address] [place] AST [Catalytic activity/Vol] 20 U/L Normal 13-35 [facility] Comment on above: Order Comment: Speci men Type: BLOOD SPECIMEN Ordering Facility: [facility] Address: [address] [place] [address] Performed By: #### T SPN #### [facility]IN BLOOD BANK CLIA [id number] [address] [place] [address] [place] Bilirubin [Mass/Vol] 0.7 mg/dL Normal 0.2-1.3 [facility] Comment on above: Order Comment: Speci men Type: BLOOD SPECIMEN Ordering Facility: [facility] Address: [address] [place] [address] Performed By: #### T SPN #### [facility] MAIN BLOOD BANK CLIA [id number] [address] [place] [address] [place] Calcium [Mass/Vol] 10.0 mg/dL Normal 8.5-10.2 [facility] Comment on above: Order Comment: Speci men Type: BLOOD SPECIMEN Ordering Facility: [facility] Address: [address] [place] [address] Performed By: #### T SPN #### [facility] MAIN BLOOD BANK CLIA [id number] [address] [place] [address] [place] Chloride [Moles/Vol] 101 mmol/L Normal 98-107 [facility] Comment on above: Order Comment: Speci men Type: BLOOD SPECIMEN Ordering Facility: [facility] Address: [address] [place] [address] Performed By: #### T SPN #### [facility] MAIN BLOOD BANK CLIA [id number] [address] [place] [address] [place] CO2 [Moles/Vol] 22 mmol/L Normal 22-30 [facility] Comment on above: Order Comment: Speci men Type: BLOOD SPECIMEN Ordering Facility: [facility] Address: [address] [place] [address] Performed By: #### T SPN #### [facility] MAIN BLOOD BANK CLIA [id number] [address] [place] [address] [place] Creatinine [Mass/Vol] 0.62 mg/dL Normal 0.58-0.96 [facility] Comment on above: Order Comment: Speci men Type: BLOOD SPECIMEN Ordering Facility: [facility] Address: [address] [place] [address] Performed By: #### T SPN #### [facility] MAIN BLOOD BANK CLIA [id number] [address] [place] [address] [place] Creatinine and Glomerular filtration rate.predicted panel (S/P/Bld) 122 mL/min/1.73m??? Normal >=60 [facility] Comment on above: Order Comment: Speci men Type: BLOOD SPECIMEN Ordering Facility: [facility] Address: [address] [place] [address] Result Comment: Alba mated Glomerular Filtration Rate (eGFR) is calculated using the 2020 CKD-EPI creatinine equation. This equation utilizes serum creatinine, sex, and age as parameters. The creatinine assay has traceable calibration to isotope dilution-mass spectrometry. Refer to KDIGO guidelines for clinical interpretation. In patients with unstable renal function, e.g. those with acute kidney injury, the eGFR may not accurately reflect actual GFR. Performed By: #### T SPN #### [facility] MAIN BLOOD BANK CLIA [id number] [address] [place] [address] [place] Glucose [Mass/Vol] 114 mg/dL High 74-99 [facility] Comment on above: Order Comment: Mega figueroa Type: BLOOD SPECIMEN Ordering Facility: [facility] Address: [address] [place] [address] Result Comment: The [place] Diabetes Association (ADA) provides guidance for cutoff values for fasting glucose and random glucose. The ADA defines fasting as no caloric intake for at least 8 hours. Fasting plasma glucose results between 100 to 125 mg/dL indicate increased risk for diabetes (prediabetes). Fasting plasma glucose results greater than or equal to 126 mg/dL meet the criteria for diagnosis of diabetes. In the absence of unequivocal hyperglycemia, results should be confirmed by repeat testing. In a patient with classic symptoms of hyperglycemia or hyperglycemic crisis, random plasma glucose results greater than or equal to 200 mg/dL meet the criteria for diagnosis of diabetes. Reference: Standards of Medical Care in Diabetes 2016, [place] [employer]. Diabetes Care. 2016.39(Suppl 1). Performed By: #### T SPN #### [facility] MAIN BLOOD BANK CLIA [id number] [address] [place] [address] [place] Potassium [Moles/Vol] 4.0 mmol/L Normal 3.7-5.1 [facility] Comment on above: Order Comment: Mega figueroa Type: BLOOD SPECIMEN Ordering Facility: [facility] Address: [address] [place] [address] Performed By: #### T SPN #### [facility] MAIN BLOOD BANK CLIA [id number] [address] [place] [address] [place] Protein [Mass/Vol] 7.5 g/dL Normal 6.3-8.0 [facility] Comment on above: Order Comment: Speci men Type: BLOOD SPECIMEN Ordering Facility: [facility] Address: [address] [place] [address] Performed By: #### T SPN #### [facility] MAIN BLOOD BANK CLIA [id number] [address] [place] [address] [place] Sodium [Moles/Vol] 134 mmol/L Low 136-144 [facility] Comment on above: Order Comment: Speci men Type: BLOOD SPECIMEN Ordering Facility: [facility] Address: [address] [place] [address] Performed By: #### T SPN #### [facility]IN BLOOD BANK CLIA [id number] [address] [place] [address] [place] Urea nitrogen [Mass/Vol] 20 mg/dL Normal 7-21 [facility] Comment on above: Order Comment: Speci men Type: BLOOD SPECIMEN Ordering Facility: [facility] Address: [address] [place] [address] Performed By: #### T SPN #### [facility]IN BLOOD BANK CLIA [id number] [address] [place] [address] [place] T4 Free SerPl-mCncon 025 Free T4 [Mass/Vol] 1.2 ng/dL Normal 0.9-1.7 [facility] Comment on above: Order Comment: Speci men Type: BLOOD SPECIMENOrdering Facility: [facility] Address: [address] [place] [address] Performed By: #### 3 024-7, 3016-3 ####[facility] LABCLIA [id number] [place] [address] [place] TSH SerPl-aCncon 07-12-2024 TSH Qn 1.520 m[IU]/L Normal 0.270-4.200 [facility] Comment on above: Order Comment: Speci men Type: BLOOD SPECIMENOrdering Facility: [facility] Address: [address] [place] [address] Result Comment: If t he patient is , TSH reference range varies by gestational period: First Trimester (weeks 9-12): 0.180-2.990 mIU/L Second Trimester: 0.110-3.980 mIU/L Third Trimester: 0.480-4.710 mIU/L Dionisio Meyers et al. A Practical Approach for the Verifications and Determination of Site- and Trimester-Specific Reference Intervals for Thyroid Function tests in . Thyroid, 2019:29:3:412-420. Héctor Arechiga, et al. 2017 Guidelines of the [place] Thyroid Association for the Diagnosis and Management of Thyroid Disease during and the . Thyroid, 2017:27:3:315-389. Performed By: #### 3 024-7, 3016-3 ####[facility] LABCLIA [id number] [facility] [id number] [place] [address] [place] URINE OB DIP B/Oon 3 Glucose Ql (U) Negative Neg mg/dL [facility] Protein.monoclonal (U) [Mass/Vol] Negative Neg mg/dL [facility] URINE OB DIP B/Oon 3 Glucose Ql (U) Negative Neg mg/dL [facility] Protein.monoclonal (U) [Mass/Vol] Negative Neg mg/dL [facility] URINE OB DIP B/Oon 3 Glucose Ql (U) Negative Neg mg/dL [facility] Protein.monoclonal (U) [Mass/Vol] Negative Neg mg/dL [facility] URINE OB DIP B/Oon 3 Glucose Ql (U) Negative Neg mg/dL [facility] Protein.monoclonal (U) [Mass/Vol] Negative Neg mg/dL [facility] URINE OB DIP B/Oon 3 Glucose Ql (U) Negative Neg mg/dL [facility] Protein.monoclonal (U) [Mass/Vol] Negative Neg mg/dL [facility] URINE OB DIP B/Oon 3 Glucose Ql (U) Negative Neg mg/dL [facility] Protein.monoclonal (U) [Mass/Vol] Negative Neg mg/dL [facility] URINE OB DIP B/Oon 3 Glucose Ql (U) Negative Neg mg/dL [facility] Protein.monoclonal (U) [Mass/Vol] trace Neg mg/dL [facility] URINE OB DIP B/Oon 3 Glucose Ql (U) Negative Neg mg/dL [facility] Protein.monoclonal (U) [Mass/Vol] Negative Neg mg/dL [facility] URINE OB DIP B/Oon 3 Glucose Ql (U) Negative Neg mg/dL [facility] Protein.monoclonal (U) [Mass/Vol] Negative Neg mg/dL [facility] Absolute lymphocyte countOrd ered By: Dr. Ferris on 08-28-2022 Lymphocytes Auto (Unsp spec) [#/Vol] 0.91 10*3/uL 0.83-4.51 [facility] Basophil percentageOrdered B y: Dr. Ferris on 08-28-2022 Basophil percentage 5-10 SEEN /hpf 0-5 [facility] Basophils/100 WBC (Bld) 0.6 % 0-1 [facility] Bilirubin [Mass/Vol] 0.40 mg/dL 0.20-1.00 [facility] Comment on above: For patients on eltr ombopag therapy, use of Dimension [place] TBIL is not recommended. Chloride [Moles/Vol] 107 mmol/L 98-107 [facility] Eosinophils/100 WBC (Bld) 0.4 % 0-5 [facility] Glucose [Mass/Vol] 79 mg/dL 74-106 [facility] Neutrophils (Bld) [#/Vol] 5.0 10*3/uL 2.0-7.7 [facility] Neutrophils/100 WBC (Bld) 74.4 % 47-70 [facility] Potassium [Moles/Vol] 3.5 mmol/L 3.5-5.1 [facility] Protein [Mass/Vol] 6.2 g/dL 6.4-8.2 [facility] Sodium [Moles/Vol] 138 mmol/L 136-145 [facility] WBC (Bld) [#/Vol] 6.8 10*3/uL 4.4-11.0 [facility] Bilirubin Test strip Ql (U)O rdered By: Dr. Ferris on 08-28-2022 Bilirubin Ql (U) 1 mg/dL Negative [facility] Comment on above: COLOR OF URINE MAY A FFECT DIPSTICK RESULTS. Blood erythrocytes count (nu mber/volume)Ordered By: Dr. Ferris on 08-28-2022 RBC (Bld) [#/Vol] 4.41 10*6/uL 4.2-5.4 [facility] Blood hemoglobin measurement (mass/volume)Ordered By: Dr. Ferris on 08-28-2022 Hemoglobin (Bld) [Mass/Vol] 14.2 g/dL 12.0-15.0 [facility] Blood lymphocytes/100 leukoc ytesOrdered By: Dr. Ferris on 08-28-2022 Lymphocytes/100 WBC (Bld) 13.5 % 19-41 [facility] Blood monocytes/100 leukocyt esOrdered By: Dr. Ferris on 08-28-2022 Monocytes/100 WBC (Bld) 9.8 % 0-10 [facility] Blood platelet mean volumeOr dered By: Dr. Ferris on 08-28-2022 Platelet mean volume (Bld) [Entitic vol] 9.5 fL 6.2-12.0 [facility] Determination of erythrocyte mean corpuscular volume (MCV)Ordered By: Dr. Ferris on 08-28-2022 MCV (RBC) [Entitic vol] 94.6 fL 81-99 [facility] Hematocrit Auto (Bld) [Volum e fraction]Ordered By: Dr. Ferris on 08-28-2022 Hematocrit (Bld) [Volume fraction] 41.7 % 37-47 [facility] Ketones Test strip Ql (U)Ord ered By: Dr. Ferris on 08-28-2022 Ketones Ql (U) 150 mg/dl Negative [facility] Comment on above: CRITICAL VALUE *HCRI TICAL VALUE VERIFIED. CALLED TO MARIAMA MOONEY08/28/221947 [employer].RESULTS READ BACK BY SAME . Laboratory - Chemistry and C hemistry - challengeOrdered By: Dr. Ferris on 08-28-2022 ALP [Catalytic activity/Vol] 65 U/L 45-117 [facility] ALT [Catalytic activity/Vol] 16 U/L 13-56 [facility] CO2 [Moles/Vol] 21.0 mmol/L 21.0-32.0 [facility] Globulin (S) [Mass/Vol] 3.6 g/dL 2.2-4.2 [facility] Lipase [Catalytic activity/Vol] 91 U/L 73-393 [facility] Urea nitrogen/Creatinine [Mass ratio] 26.0 mg/mg 10-20 [facility] Laboratory - Hematology and Cell countsOrdered By: Dr. Ferris on 08-28-2022 Erythrocyte distribution width (RBC) [Entitic vol] 48.2 fL 35.1-43.9 [facility] Erythrocyte distribution width (RBC) [Ratio] 13.8 % 11.6-14.6 [facility] Immature granulocytes/100 WBC (Bld) 1.300 % 0.0-0.9 [facility] Comment on above: IG% - Immature Granu locytes (promyelocytes, myelocytes and metamyelocytes) > 1% indicates that a LEFT SHIFT is Present. MCH (RBC) [Entitic mass] 32.2 pg 27.0-32.0 [facility] Nucleated RBC/100 WBC (Bld) [Ratio] 0 % 0-5 [facility] MCHC Auto (RBC) [Mass/Vol]Or dered By: Dr. Ferris on 08-28-2022 MCHC (RBC) [Mass/Vol] 34.1 g/dL 32-36 [facility] Mucus LM Ql (Urine sed)Order ed By: Dr. Ferris on 08-28-2022 Mucus Ql (Urine sed) 0 SEEN /hpf [facility] Nitrite Test strip Ql (U)Ord ered By: Dr. Ferris on 08-28-2022 Nitrite Ql (U) Negative Negative [facility] No Panel InformationOrdered By: Dr. Ferris on 08-28-2022 Estimated Creatinine Clearance Calc 109.75 ml/min [facility] Estimated GFR (MDRD) Amer 147 mL/min >60 [facility] Comment on above: GFR Calc Estimated GFR (MDRD) Non-Af Amer 121 mL/min >60 [facility] Comment on above: Non- GFR Calc Platelets bldOrdered By: Dr. Ferris on 08-28-2022 Platelets (Bld) [#/Vol] 234 10*3/uL 150-450 [facility] Protein Test strip Ql (U)Ord ered By: Dr. Ferris on 08-28-2022 Protein Ql (U) 30 mg/dl Negative [facility] Serum or plasma albumin luisito urement (mass/volume)Ordered By: Dr. Ferris on 08-28-2022 Albumin [Mass/Vol] 2.6 g/dL 3.2-5.0 [facility] Serum or plasma albumin/glob ulin mass ratioOrdered By: Dr. Ferris on 08-28-2022 Albumin/Globulin [Mass ratio] 0.7 {ratio} 0.9-2.4 [facility] Serum or plasma calcium luisito urement (mass/volume)Ordered By: Dr. Ferris on 08-28-2022 Calcium [Mass/Vol] 8.5 mg/dL 8.5-10.1 [facility] Serum or plasma creatinine m easurement (mass/volume)Ordered By: Dr. Ferris on 08-28-2022 Creatinine [Mass/Vol] 0.62 mg/dL 0.55-1.02 [facility] Comment on above: The validity of the calculated GFR & GFRAA in patients over 70 years has not been determined. Clinical correlation is essential. Serum or plasma urea nitroge n measurement (mass/volume)Ordered By: Dr. Ferris on 08-28-2022 Urea nitrogen [Mass/Vol] 16 mg/dL 7-18 [facility] Squamous epithelial cells de tection in urine sediment by light microscopyOrdered By: Dr. Ferris on 08-28-2022 Epithelial cells.squamous LM Ql (Urine sed) 5-10 SEEN /hpf 5-10 [facility] Thin prep Papanicolaou smear with manual screeningOrdered By: Dr. Ferris on 08-28-2022 Thin prep Papanicolaou smear with manual screening 16 U/L 15-37 [facility] Thin prep Papanicolaou smear with manual screening 10 5-15 [facility] Urine blood detectionOrdered By: Dr. Ferris on 08-28-2022 RBC Ql (U) 10 /ul Negative [facility] RBC Ql (U) 0-5 SEEN /hpf 0-5 [facility] Urine clarityOrdered By: Dr. Ferris on 08-28-2022 Clarity (U) Clear Clear [facility] Urine color determinationOrd ered By: Dr. Ferris on 08-28-2022 Color (U) Yellow Yellow [facility] Urine glucose detectionOrder ed By: Dr. Ferris on 08-28-2022 Glucose Ql (U) Normal mg/dl Normal [facility] Urine leukocyte esterase det ection by dipstickOrdered By: Dr. Ferris on 08-28-2022 Leukocyte esterase Test strip Ql (U) 25 /ul Negative [facility] Urine pHOrdered By: Dr. Ferris on 08-28-2022 pH (U) 6.0 [pH] 5.0 - 8.0 [facility] Urine sediment bacteria coun t by microscopy (number/high power field)Ordered By: Dr. Ferris on 08-28-2022 Bacteria LM.HPF (Urine sed) [#/Area] 1 /[HPF] None Seen [facility] Urine specific gravity measu rementOrdered By: Dr. Ferris on 08-28-2022 Specific gravity (U) [Rel density] 1.025 1.002-1.030 [facility] Urobilinogen Auto test strip Ql (U)Ordered By: Dr. Ferris on 08-28-2022 Urobilinogen Ql (U) 1 mg/dl Normal [facility] URINE OB DIP B/Oon 3 Glucose Ql (U) Negative Neg mg/dL [facility] Protein.monoclonal (U) [Mass/Vol] Negative Neg mg/dL [facility] C. trachomatis+N. gonorrhoea e DNA TRISH+probe Ql (Unsp spec)on 05-11-2022 C. trachomatis DNA TRISH+probe Ql (Unsp spec) Negative Negative for Chlamydia trachomatis by amplificaton [facility] N. gonorrhoeae DNA TRISH+probe Ql (Unsp spec) Negative Negative for Neisseria gonorrhoeae by amplification [facility] URINE CULTUREon 05-11-2022 Bacteria identified Cx Nom (U) <10,000 CFU/ml Normal urogenital mateo [facility] Post Op (General Surgery)on 11-30-2021 Post Op (General Surgery) Diagnoses/Problems Biliary colic (574.20) (K80.50) Chief Complaint post op 11-06-2021 Robotic cholecystectomy. History of Present IllnessFollow-Up Note Referring Provider: none Chief Complaint: post op History of Present Illness: This is a 31-year-old female who presents as a telehealth visit about 3 weeks after a laparoscopic cholecystectomy. She has been doing well since surgery, feels that her incisions are healing well, has no drainage, or dehiscence, no warmth or redness around the incision sites. Pain is tolerable and minimal at this point. She states that pain experienced prior to her procedure is resolved at this point. Denies fevers or chills. Has been eating and drinking well, even tolerating some fatty foods without issue. Past Medical History: See Below Past Surgical History: See Below Medications: See Below Allergies: See Below Family History: See Below Social History: See Below Review of Systems A complete 10 point review of systems was performed and is negative except as noted in the history of present illness. Vitals: See vital section below Physical Exam: Full exam deferred due to this being a telehealth visit Labs: Surgical pathology, gallbladder with no pathologic findings Imaging: none Assessment: This is a 31-year-old female who is a telehealth visit to review surgical pathology in regards to her laparoscopic cholecystectomy performed 3 weeks ago. Patient recently moved to [facility]. surgical pathology revealed a gallbladder with no pathologic findings, making this consistent with a biliary dyskinesia. Right upper quadrant ultrasound prior to procedure did reveal cholelithiasis, we discussed that stones may have passed between the ultrasound and surgery date. She has been doing well since surgery, eating and drinking without issue, pain controlled. No concerns with her incision states that are healing as expected Plan: -- No lifting for about 1 more weeks more than 10 pounds --Regular diet --Okay for swimming and tub soaks --Return to follow-up or call our office if any new or worsening symptoms or experience Patient discussed with who is in agreement with plan. 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) Symptoms consistent with irritable bowel syndrome (564.1) (K58.9) Vision loss, left eye (369.8) (H54.62) Past Medical History No pertinent past medical history History of No pertinent past surgical history Social History Non-smoker (V49.89) (Z78.9) Allergies No Known Drug Allergies Recorded By: Roula Vidales; 12/09/2017 3:02:53 PM Current Meds Medication NameInstruction Advil Cold/Sinus 30-200 MG Oral TabletTAKE 1 TABLET Every 8 hours Esomeprazole Magnesium 40 MG Oral Capsule Delayed ReleaseTAKE ONE (1) CAPSULE BY MOUTH EVERY DAY NIFEdipine ER 30 MG Oral Tablet Extended Release 24 Hourtake 1 tablet by mouth once daily Results/Data Surgical [id number] 11:11AAlfredo Rubalcava Test NameResultFlagReference Case Surgical Pathology(Report) Name RAMONA WAHLTresa Pathologist: TONI VILLELA M.D., PhD. Date of Procedure: 11/06/2021 Date Received: 11/06/2021 Date Reported 11/15/2021 Submitting Physician: ALFREDO BOWDEN MD Location: [facility] Surg Copy To/Referring/Attending: FRIDA LIEBERMAN D.O. Other External # FINAL DIAGNOSIS A. GALLBLADDER: --GALLBLADDER, NO SIGNIFICANT PATHOLOGIC FINDINGS Electronically Signed Out By TONI VILLELA M.D., PhD./WLI By the signature on this report, the individual or group listed as making the Final Interpretation/Diagnosis certifies that they have reviewed this case. Diagnostic interpretation performed at [facility] [address] [address] [facility] [address] Clinical History: Physician Contact Number: [facility] Fixative (A): Formalin Clinical Diagnosis History CHRONIC CHOLECYSTITIS Specimens Submitted As: A: GALLBLADDER Gross Description: Received in formalin, labeled with the patient's name and hospital number and gallbladder, is an intact gallbladder, opened for fixation, measuring 6.4 x 3.2 x 1.9 cm. The serosal surface is smooth, and glistening. The wall measures up to 0.2 cm in greatest thickness. The lumen contains green-brown mucoid bile. Upon filtering formalin calculi are not gross identified. The mucosal surface is bile-stained and velvety. A lymph node is not grossly identified adjacen (more content not included)... Normal Touchworks HCG,URINEon 11-07-2021 Beta HCG ( test) Ql (U) Negative Normal Negative [facility] Comment on above: Result Comment: POCT Performed By: #### H CGU #### [facility] [address] [place] [address] No Panel Informationon 11-06 [facility] Work Phone: [facility] Surgical Pathology Depar tmenton 11-06-2021 [facility] Surgical Pathology Department Name RAMONA WAHL Pathologist: OTNI VILLELA M.D., PhD. Date of Procedure: 11/06/2021 Date Received: 11/06/2021 Date Reported 11/15/2021 Submitting Physician: ALFREDO BOWDEN MD Location: [facility] Copy To/Referring/Attending: FRIDA LIEBERMAN D.O. Other External # FINAL DIAGNOSIS A. GALLBLADDER: --GALLBLADDER, NO SIGNIFICANT PATHOLOGIC FINDINGS Electronically Signed Out By TONI VILLELA M.D., PhD./WLI By the signature on this report, the individual or group listed as making the Final Interpretation/Diagnosis certifies that they have reviewed this case. Diagnostic interpretation performed at [facility] [address] [facility] [address] Clinical History: Physician Contact Number: HALO Fixative (A): Formalin Clinical Diagnosis History CHRONIC CHOLECYSTITIS Specimens Submitted As: A: GALLBLADDER Gross Description: Received in formalin, labeled with the patient's name and hospital number and gallbladder, is an intact gallbladder, opened for fixation, measuring 6.4 x 3.2 x 1.9 cm. The serosal surface is smooth, and glistening. The wall measures up to 0.2 cm in greatest thickness. The lumen contains green-brown mucoid bile. Upon filtering formalin calculi are not gross identified. The mucosal surface is bile-stained and velvety. A lymph node is not grossly identified adjacent to the cystic duct. Ground Source Heat Pump Technician sections consisting of the cystic duct margin, and gallbladder wall, are submitted in one cassette. TAYLOR mjqing/11/09/2021 [facility] Department of Pathology [address] [place] [address] Normal [facility] Comment on above: Performed By: #### M G #### [facility] [address] [place] [address] Urine Teston 11-06 HCG ( test) Ql (U) Negative Negative -[facility] Work Phone: Comment on above: POCT CORONAVIRUS 2019, SCREEN ASY MPTOMATICon 11-03-2021 SARS-CoV-2 (COVID-19) RNA TRISH+probe Ql (Unsp spec) Not detected Normal Not Detected [facility] Comment on above: Result Comment: . This assay is designed to detect the N, ORF1ab and/or S genes of SARS-CoV-2 via nucleic acid amplification. A Negative (NOT DETECTED) result does not preclude 2019-nCoV infection since the adequacy of sample collection and/or low viral burden may result in presence of viral nucleic acids below the clinical sensitivity of this test method. Negative (NOT DETECTED) result should not be used as the sole basis for treatment or other patient management decisions. Rather negative results should be combined with clinical observations, patient history, and epidemiological information to make patient management decisions. Fact sheet for providers: https://www.fda.gov/media/890769/download Fact sheet for patients: https://www.fda.gov/media/940106/download This test has received FDA Emergency Use Authorization (EUA) and has been verified by [facility] ([facility]). This test is only authorized for the duration of time that circumstances exist to justify the authorization of the emergency use of in vitro diagnostic tests for the detection of SARS-CoV-2 virus and/or diagnosis of COVID-19 infection under section 564(b)(1) of the Act, 21 U.S.C. 360bbb-3(b)(1), unless the authorization is terminated or revoked sooner. [facility] is certified under CLIA-88 as qualified to perform high complexity testing. Testing is performed in the [facility] laboratories located at [address] [place] [address]. Performed By: #### M G #### [address] [address] Lab Specimen Source Nasal, Nasopharyngeal Normal [facility] Comment on above: Performed By: #### M G #### [address] [address] Coronavirus 2019 RNA by PCR, Screening Asymptomticon 11-03-2021 Coronavirus 2019 RNA by PCR, Screening Asymptomtic Not detected Normal See Below -[facility] fatima Work Phone: Comment on above: SOURCE: Nasal, Nasop haryngealReference Range: Not Detected.This assay is designed to detect the N, ORF1ab and/or S genes of SARS-CoV-2 via nucleic acid amplification. A Negative (NOT DETECTED) result does not preclude 2019-nCoV infection since the adequacy of sample collection and/or low viral burden may result in presence of viral nucleic acids below the clinical sensitivity of this test method. Negative (NOT DETECTED) result should not be used as the sole basis for treatment or other patient management decisions. Rather negative results should be combined with clinical observations, patient history, and epidemiological information to make patient management decisions.Fact sheet for providers: https://www.fda.gov/media/226340/downloadFact sheet for patients: https://www.fda.gov/media/131538/downloadThis test has received FDA Emergency Use Authorization (EUA) and has been verified by [facility] ([facility]). This test is only authorized for the duration of time that circumstances exist to justify the authorization of the emergency use of in vitro diagnostic tests for the detection of SARS-CoV-2 virus and/or diagnosis of COVID-19 infection under section 564(b)(1) of the Act, 21 U.S.C. 360bbb-3(b)(1), unless the authorization is terminated or revoked sooner. [facility] is certified under CLIA-88 as qualified to perform high complexity testing. Testing is performed in the [facility] laboratories located at [address] [place] [address]. Covid 19 Resultson 2 SARS-CoV-2 (COVID-19) RNA TRISH+probe Ql (Unsp spec) NEGATIVE COVID-19 Test Coronaviruses are common world-wide and are the cause of many common colds. SARS-COV2 is a new coronavirus that began circulating worldwide in 2019 so we are calling it COVID-19. It has been estimated that four out of five patients with COVID-19 will recover at home without the need for medical attention. Symptoms of COVID-19 may include cough, fever, shortness of breath, loss of taste or smell and other flu-like symptoms including chills, sore muscles, sore throat, and headache. Severe illness is more common in older people and people with other health problems such as high blood pressure, obesity, and immune system problems. If the test is positive, you have COVID-19. You will be contacted by the ordering physicians office and instructed to remain on home isolation, in accordance with CDC guidelines. You may also be contacted by the [facility] to see if any of your close contacts may have been exposed to the virus and need to quarantine. If the test is negative, you likely do not have COVID-19 at this time, but you still may have a different illness that can spread to other people (like Influenza, or the Flu) and could still be at risk for getting COVID-19. We recommend that you stay away from other people to limit the spread of illness until your symptoms are improving and you are fever-free for 24 hours without the use of fever lowering medications such as acetaminophen or ibuprofen. No test is 100% accurate so if you are still concerned you may have COVID-19, talk to your doctor about the need to continue to stay away from others. Medicines Unless your provider told you not to use the following: Acetaminophen (Tylenol and others) is generally safe. Anti-inflammatory medications, such as Ibuprofen (Advil or Motrin) or Naproxen (Aleve) can also be used. Bgya-bst-ltdzklb cough and cold medicines can be used according to the instructions on the package. Some ebht-gtk-qgvjcut medicines also contain acetaminophen. Make sure you are not taking more than your recommended dose. For those not hospitalized, there is no specific treatment available for this illness. Antibiotics do not treat Coronaviruses. Follow-Up Follow up with your doctor by scheduling a virtual visit or consider follow-up at one of our urgent care fever clinics. If you are having difficulty breathing, or are very weak and having difficulty standing, this is a medical emergency. Call 911 or have someone take you to the nearest emergency room immediately. If possible, wear a facemask. Additional guidance from the CDC for patients who tested POSITIVE for COVID-19 How to isolate: Isolate yourself in a specific room at home and limit your contact with others. Use a separate bathroom from other members of the household, when possible. Leave home only to get essential medical care. Do not go to work, school or public areas. Avoid using public transportation, ride-sharing, or taxis. Restrict contact with pets and other animals. If you must care for your pet or be around animals while you are sick, wash your hands before and after your interaction and wear a facemask. Make sure that shared spaces in the home have good airflow, such as by an air conditioner or an opened window, weather permitting. Personal Hygiene Procedures: Wear a face mask when in the same room as other people or pets. If a face mask interferes with your breathing, others should wear a mask when sharing space with you. Frequent hand-washing: wash your hands with soap and water for at least 20 seconds. If soap and water are not available, use alcohol-based hand blood and plasma laboratory assistant. Avoid touching your eyes, nose, and mouth with unwashed hands. Household Hygiene Procedures: Avoid sharing personal household items such as dishes, glassware, cups, eating utensils, towels or bedding with other people or pets in your home. After use, these items should be washed with soap and hot water. Disinfect all high-touch surfaces every day with antibacterial cleaning solutions such as Lysol wipes, bleach, cleansers, etc. High-touch surfaces include tabletops, doorknobs, bathroom fixtures, toilets, phones, keyboards, tablets and bedside tables. Immediately clean any surfaces that may have blood, poop or body fluids on them, using antibacterial cleaning solutions such as Lysol wipes, bleach, cleansers, etc. If clothing or bedding come into contact with blood, poop or body fluids, they should be washed immediately. Follow the directions on the laundry detergent and clothing labels but hot water is recommended when possible. Stopping home isolation precautions: If possible, consult your doctor before stopping home isolation precautions. According to the CDC, you can discontinue home isolation precautions when you have met both of these criteria: Your fever and respiratory symptoms have been gone for 24 pennie (more content not included)... Normal [facility] CBC AND DIFFERENTIALon 10-26 Basophils (Bld) [#/Vol] 0.10 10*3/uL Normal 0.00 - 0.10 [facility] Comment on above: Performed By: #### C BCDF #### [address] [address] Basophils/100 WBC (Bld) 0.9 % Normal 0.0 - 2.0 [facility] Comment on above: Performed By: #### C BCDF #### [address] [address] Eosinophils (Bld) [#/Vol] 0.40 10*3/uL Normal 0.00 - 0.70 [facility] Comment on above: Performed By: #### C BCDF #### [address] [address] Eosinophils/100 WBC (Bld) 6.1 % Normal 0.0 - 6.0 [facility] Comment on above: Performed By: #### C BCDF #### [address] [address] Erythrocyte distribution width (RBC) [Ratio] 12.6 % Normal 11.5 - 14.5 [facility] Comment on above: Performed By: #### C BCDF #### [address] [address] Hematocrit (Bld) [Volume fraction] 41.7 % Normal 36.0 - 46.0 [facility] Comment on above: Performed By: #### C BCDF #### [address] [address] Hemoglobin (Bld) [Mass/Vol] 14.2 g/dL Normal 12.0 - 16.0 [facility] Comment on above: Performed By: #### C BCDF #### [address] [address] Lymphocytes (Bld) [#/Vol] 2.00 10*3/uL Normal 1.20 - 4.80 [facility] Comment on above: Performed By: #### C BCDF #### [address] [address] Lymphocytes/100 WBC (Bld) 27.7 % Normal 13.0 - 44.0 [facility] Comment on above: Performed By: #### C BCDF #### [address] [address] MCHC (RBC) [Mass/Vol] 34.1 g/dL Normal 32.0 - 36.0 [facility] Comment on above: Performed By: #### C BCDF #### [address] [address] MCV (RBC) [Entitic vol] 89 fL Normal 80 - 100 [facility] Comment on above: Performed By: #### C BCDF #### [address] [address] Monocytes (Bld) [#/Vol] 0.70 10*3/uL Normal 0.10 - 1.00 [facility] Comment on above: Performed By: #### C BCDF #### [address] [address] Monocytes/100 WBC (Bld) 9.5 % Normal 2.0 - 10.0 [facility] Comment on above: Performed By: #### C BCDF #### [address] [address] Neutrophils (Bld) [#/Vol] 4.10 10*3/uL Normal 1.20 - 7.70 [facility] Comment on above: Result Comment: Perc ent differential counts (%) should be interpreted in the context of the absolute cell counts (cells/L). Performed By: #### C BCDF #### [address] [address] Neutrophils/100 WBC (Bld) 55.8 % Normal 40.0 - 80.0 [facility] Comment on above: Performed By: #### C BCDF #### [address] [address] Platelets (Bld) [#/Vol] 233 10*3/uL Normal 150 - 450 [facility] Comment on above: Performed By: #### C BCDF #### [address] [address] RBC 4.71 x10E12/L Normal 4.00 - 5.20 [facility] Comment on above: Performed By: #### C BCDF #### [address] [address] WBC (Bld) [#/Vol] 7.4 10*3/uL Normal 4.4 - 11.3 [facility] Comment on above: Performed By: #### C BCDF #### [address] [address] Complete Blood Count + Diffe rentialon 10-26-2021 Basophils/100 WBC (Bld) 0.9 % 0.0 - 2.0 [facility] [place] Work Phone: Erythrocyte distribution width (RBC) [Ratio] 12.6 % See Below [facility] Work Phone: Comment on above: Reference Range: 11. 5 - 14.5 Hematocrit (Bld) [Volume fraction] 41.7 % See Below [facility] Work Phone: Comment on above: Reference Range: 36. 0 - 46.0 Hemoglobin (Bld) [Mass/Vol] 14.2 g/dL See Below [facility] Work Phone: Comment on above: Reference Range: 12. 0 - 16.0 Lymphocytes/100 WBC (Bld) 27.7 % See Below [facility] Work Phone: Comment on above: Reference Range: 13. 0 - 44.0 MCHC (RBC) [Mass/Vol] 34.1 g/dL See Below [facility] [place] Work Phone: [phone] Comment on above: Reference Range: 32. 0 - 36.0 MCV (RBC) [Entitic vol] 89 fL 80 - 100 [facility] [place] Work Phone: [phone] Monocytes/100 WBC (Bld) 9.5 % 2.0 - 10.0 [facility] [place] Work Phone: [phone] Neutrophils/100 WBC (Bld) 55.8 % See Below [facility] [place] Work Phone: [phone] Comment on above: Reference Range: 40. 0 - 80.0 Platelets (Bld) [#/Vol] 233 10*3/uL 150 - 450 [facility] [place] Work Phone: [phone] RBC (Bld) [#/Vol] 4.71 {x10E12/L} See Below [facility] [place] Work Phone: [phone] Comment on above: Reference Range: 4.0 0 - 5.20 WBC (Bld) [#/Vol] 7.4 10*3/uL 4.4 - 11.3 [facility] [place] Work Phone: [phone] Complete Blood Count + Differential 0.10 {x10E9/L} See Below [facility] [place] Work Phone: [phone] Comment on above: Reference Range: 0.0 0 - 0.10 Complete Blood Count + Differential 0.40 {x10E9/L} See Below [facility] [place] Work Phone: [phone] Comment on above: Reference Range: 0.0 0 - 0.70 Complete Blood Count + Differential 0.70 {x10E9/L} See Below [facility] [place] Work Phone: [phone] Comment on above: Reference Range: 0.1 0 - 1.00 Complete Blood Count + Differential 2.00 {x10E9/L} See Below [facility] [place] Work Phone: Comment on above: Reference Range: 1.2 0 - 4.80 Complete Blood Count + Differential 4.10 {x10E9/L} See Below [facility] Work Phone: Comment on above: Reference Range: 1.2 0 - 7.70 Percent differential counts (%) should be interpreted in the context of the absolute cell counts (cells/L). Complete Blood Count + Differential 6.1 % 0.0 - 6.0 [facility] Work Phone: HEPATIC FUNCTION PANELon Albumin [Mass/Vol] 4.4 g/dL Normal 3.4 - 5.0 [facility] Comment on above: Performed By: #### H EPFP #### [address] [address] Performed By: #### M G #### [address] [address] ALP [Catalytic activity/Vol] 57 U/L Normal 33 - 110 [facility] Comment on above: Performed By: #### H EPFP #### [address] [address] ALT [Catalytic activity/Vol] 22 U/L Normal 7 - 45 [facility] Comment on above: Result Comment: Feli ents treated with Sulfasalazine may generate falsely decreased results for ALT. Performed By: #### H EPFP #### [address] [address] AST [Catalytic activity/Vol] 18 U/L Normal 9 - 39 [facility] Comment on above: Performed By: #### H EPFP #### [address] [address] Bilirubin [Mass/Vol] 0.4 mg/dL Normal 0.0 - 1.2 [facility] Comment on above: Performed By: #### H EPFP #### [address] [address] Bilirubin.indirect [Mass/Vol] 0.1 mg/dL Normal 0.0 - 0.3 [facility] Comment on above: Performed By: #### H EPFP #### [id number] [place] [address] Protein [Mass/Vol] 6.8 g/dL Normal 6.4 - 8.2 [facility] Comment on above: Performed By: #### H EPFP #### [address] [place] [address] Hepatic Function Panelon Albumin BCP dye [Mass/Vol] 4.4 g/dL 3.4 - 5.0 [facility] [place] Work Phone: [phone] ALP [Catalytic activity/Vol] 57 U/L 33 - 110 -[facility] Work Phone: [phone] ALT With P-5'-P [Catalytic activity/Vol] 22 U/L 7 - 45 [facility] [place] Work Phone: [phone] Comment on above: Patients treated wit h Sulfasalazine may generate falsely decreased results for ALT. AST With P-5'-P [Catalytic activity/Vol] 18 U/L 9 - 39 -[facility] [place] Work Phone: [phone] Bilirubin [Mass/Vol] 0.4 mg/dL 0.0 - 1.2 [facility] [place] Work Phone: [phone] Bilirubin.direct [Mass/Vol] 0.1 mg/dL 0.0 - 0.3 -[facility] [place] Work Phone: [phone] Protein [Mass/Vol] 6.8 g/dL 6.4 - 8.2 [facility] [place] Work Phone: Laboratory - Coagulationon 0 10-26-2021 INR Coag (PPP) [Relative time] 1.1 {INR} 0.9 - 1.1 [facility] Work Phone: [phone] PT Coag (PPP) [Time] 12.5 s 9.8 - 13.4 [facility] Work Phone: [phone] MAGNESIUMon 10-26-2021 Magnesium [Mass/Vol] 2.03 mg/dL Normal 1.60 - 2.40 [facility] Comment on above: Performed By: #### M G #### [address] [address] Magnesium, Serumon Magnesium [Mass/Vol] 2.03 mg/dL See Below [facility] [place] Work Phone: Comment on above: Reference Range: 1.6 0 - 2.40 PT/INRon 10-26-2021 PT Coag (PPP) [Time] 12.5 s Normal 9.8 - 13.4 [facility] Comment on above: Performed By: #### P TINR #### [address] [address] PT, INR 1.1 Normal 0.9 - 1.1 [facility] Comment on above: Performed By: #### P TINR #### [address] [address] RENAL FUNCTION PANELon 10-26 Anion gap [Moles/Vol] 10 mmol/L Normal 10 - 20 [facility] Comment on above: Performed By: #### M G #### [address] [address] Calcium [Mass/Vol] 9.0 mg/dL Normal 8.6 - 10.3 [facility] Comment on above: Performed By: #### M G #### [address] [address] Chloride [Moles/Vol] 107 mmol/L Normal 98 - 107 [facility] Comment on above: Performed By: #### M G #### [address] [address] Creatinine [Mass/Vol] 0.99 mg/dL Normal 0.50 - 1.05 [facility] Comment on above: Performed By: #### M G #### [address] [address] GFR/1.73 sq M.predicted among non-blacks MDRD (S/P/Bld) [Vol rate/Area] 79 mL/min/{1.73_m2} Normal >90 [facility] Comment on above: Result Comment: CALC ULATIONS OF ESTIMATED GFR ARE PERFORMED USING THE 2020 CKD-EPI STUDY REFIT EQUATION WITHOUT THE RACE VARIABLE FOR THE IDMS-TRACEABLE CREATININE METHODS. https://jasn.asnjournals.org/content//ASN.380508 3578 Performed By: #### M G #### [address] [address] Glucose [Mass/Vol] 86 mg/dL Normal 74 - 99 [facility] Comment on above: Performed By: #### M G #### [address] [address] HCO3 (Bld) [Moles/Vol] 24 mmol/L Normal 21 - 32 [facility] Comment on above: Performed By: #### M G #### [address] [address] Phosphate [Mass/Vol] 3.2 mg/dL Normal 2.5 - 4.9 [facility] Comment on above: Result Comment: The performance characteristics of phosphorus testing in heparinized plasma have been validated by the individual laboratory site where testing is performed. Testing on heparinized plasma is not approved by the FDA; however, such approval is not necessary. Performed By: #### M G #### [address] [address] Potassium [Moles/Vol] 3.7 mmol/L Normal 3.5 - 5.3 [facility] Comment on above: Performed By: #### M G #### [address] [address] Sodium [Moles/Vol] 137 mmol/L Normal 136 - 145 [facility] Comment on above: Performed By: #### M G #### [address] [address] Urea nitrogen [Mass/Vol] 17 mg/dL Normal 6 - 23 [facility] Comment on above: Performed By: #### M G #### [address] [address] Renal Function Panelon 10-26 Anion gap [Moles/Vol] 10 mmol/L 10 - 20 - [facility] [place] Work Phone: [phone] Calcium [Mass/Vol] 9.0 mg/dL 8.6 - 10.3 [facility] [place] Work Phone: [phone] Chloride [Moles/Vol] 107 mmol/L 98 - 107 MP[facility] [place] Work Phone: [phone] CO2 [Moles/Vol] 24 mmol/L 21 - 32 -[facility] [place] Work Phone: [phone] Creatinine [Mass/Vol] 0.99 mg/dL See Below - [facility] Work Phone: [phone] Comment on above: Reference Range: 0.5 0 - 1.05 Glucose [Mass/Vol] 86 mg/dL 74 - 99 -[facility] Work Phone: [phone] Phosphate [Mass/Vol] 3.2 mg/dL 2.5 - 4.9 MP-[facility] Work Phone: [phone] Comment on above: The performance lupe acteristics of phosphorus testing in heparinized plasma have been validated by the individual laboratory site where testing is performed. Testing on heparinized plasma is not approved by the FDA; however, such approval is not necessary. Potassium [Moles/Vol] 3.7 mmol/L 3.5 - 5.3 - [facility] Work Phone: [phone] Sodium [Moles/Vol] 137 mmol/L 136 - 145 -[facility] Work Phone: [phone] Urea nitrogen [Mass/Vol] 17 mg/dL 6 - 23 -[facility] Work Phone: [phone] Renal Function Panel 79 {mL/min/1.73m2} >90 -[facility] Work Phone: [phone] Comment on above: CALCULATIONS OF ALBA MATED GFR ARE PERFORMED USING THE 2020 CKD-EPI STUDY REFIT EQUATION WITHOUT THE RACE VARIABLE FOR THE IDMS-TRACEABLE CREATININE METHODS.https://jasn.asnjournals.org/content/early/ N.[email or web address] Initial Visit (General Surge ry)on 08-03-2021 Initial Visit (General Surgery) Diagnoses/Problems GERD (gastroesophageal reflux disease) (530.81) (K21.9) Biliary colic (574.20) (K80.50) Provider Impressions 31F with a known hx of cholelithiasis and bile sludge without typical symptoms. Plan: - plan for lap catarino prior to - PPI for reflux - follow-up with PCP for anxiety symptoms Patient seen and discussed with Dr. Mumtaz Eaton PGY5 General Surgery History and Physical Referring Provider: Dr. Lieberman Chief Complaint: Epigastric and right upper quadrant pain with gallstones History of Present Illness: This is a 31-year-old female who presents with right upper quadrant abdominal pain and epigastric pain associate with gallstones. It started during her last . It did improve after giving , but she has had a couple more episodes. She has been treated for heartburn in the past, but this has not felt like her previous heartburns. She had a work-up that included an ultrasound demonstrating gallstones and sludge. She denies any fevers, chills, nausea, or vomiting. Her chest pain has led to a cardiac work-up, which was negative. Past Medical History: Gastroesophageal reflux disease Past Surgical History: Tonsillectomy Medications: Patient denies any Allergies: No Known Drug Allergies Family History: Patient denies any known family history Social History: . 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 Denies tobacco, alcohol, and illicits. Review of Systems A complete 10 point review of systems was performed and is negative except as noted in the history of present illness. Vitals: See vital section below Physical Exam: General: No acute distress. Sitting up in bed. Neuro: Alert and oriented 3. Follows commands. Head: Atraumatic Eyes: Pupils equal reactive to light. Extraocular motions intact. Ears: Hears normal speaking voice. Mouth, Nose, Throat: Mucous membranes moist. Normal dentition. Neck: Supple. No appreciable masses. Chest: No crepitus. No appreciable scars. Heart: Regular rate and rhythm. Lung: Clear to auscultation bilaterally. Vascular: No carotid bruits. Palpable radial pulses bilaterally. Abdomen: Soft. Nondistended. Nontender. No appreciable hernias or scars. Musculoskeletal: Moves all extremities. Normal range of motion. Lymphatic: No palpable lymph nodes. Skin: No rashes or lesions. Psychological: Normal affect Labs: No new Imaging: I have personally reviewed the images and the radiologist's report. Right upper quadrant ultrasound: Gallstones without acute cholecystitis Assessment: This is a 31-year-old female who presents with persistent epigastric and right upper quadrant abdominal pain and known gallstones on imaging. We discussed at length that there is a chance that this pain is not related to her gallbladder, but that given the gallstones it is reasonable to assume that it is. We also discussed that if she gets again, the gallstones will likely get worse. We discussed I therefore recommend a laparoscopic cholecystectomy. We discussed also that her symptoms may be attributable to gastroesophageal reflux disease, and I therefore recommend empiric treatment with antacids. Plan: --Nexium 40 daily for 30 days -- We will plan for a laparoscopic cholecystectomy. -- We will plan for surgery to be performed as an outpatient. -- We will obtain preoperative labwork including CBC, RFP, Magnesium, LFTs, INR, and Type and Screen. -- Avoid eating fatty food pre-operatively. -- We will apply Dermabond, so the patient may shower the day after surgery. No swimming or tub soaks for 2 weeks post-operatively. -- No heavy lifting for 4 weeks after surgery. Carlos Manuel Bowden MD General Surgery Office: [phone] Chief Complaint Evaluation of ruq pain, gallbladder. History of Present [id number] who presents today for evaluation of right subcostal, sternal, and epigastric pain x 2 episodes. Initially complained of sternal, pressure-like pain radiating to RUQ when she was 7 months which prompted a GB US showing biliary sludge. She then had a similar episode a few months ago asx with squeezing substernal pain, plapitationsa, diaphoresis, lasting for 5 hours prompting her to present to the ED. Work-up at that time was reportedly negative. She denies biliary colic symptoms. Pain not worsened by food. Does report of anxiety. Used to take carafate when . Not currently on PPI. Denies further episodes of attacks Patient is wishing to get soon Review of Systems Constitutional: no fever and no chills. Cardiovascular: no chest pain and no palpitations. Respiratory: no dyspnea. Gastrointestinal: abdominal pain, intermittent, RUQ, associated with food, but no constipation, no vomiting, no nausea, no diarrhea. Neurological: no headache and no dizziness. All other systems have been reviewed and are negative for complaint. Active Problems Abdominal pain, RUQ (more content not included)... [facility] CORONAVIRUSon 06-08-2021 SARS-CoV-2 (COVID-19) RNA TRISH+probe Ql (Unsp spec) DELETED PROMPT LINE #2 * This is a corrected result. * A prior result that was reported as final has been changed. Methodology: PCR Negative results do not preclude SARS-CoV-2 infection and should not be used as the sole basis for patient management decisions. Negative results must be combined with clinical observations, patient history, and epidemiological information. False-negative results may occur if the viruses are present at a level that is below the analytical sensitivity of the assay or if the virus has genomic mutations, insertions, deletions, or rearrangements or if performed very early in the course of illness. Results may be affected by the quality of the sample collected. Simplexa COVID-19 Direct is only for use under the Food and Drug Administration's Emergency Use Authorization. The Simplexa COVID-19 Direct Letter of Authorization, along with the authorized Fact Sheet for Healthcare Providers, the authorized Fact Sheet for Patients, and authorized labeling are available on the FDA website: https://www.fda.gov/Medi calDevices/Safety/ EmergencySituations/ucm1 25440.htm This test was developed and its performance characteristics determined by [facility]'s Sherif Villegas [facility] [place]. This test has been authorized by FDA under an Emergency Use Authorization (EUA). This test has been validated in accordance with the FDA's Guidance Document Policy for Diagnostics Testing in Laboratories Certified to Perform High Complexity Testing under CLIA prior to Emergency use Authorization for Coronavirus Disease 2019 during the Public Health Emergency issued on July 31, 2019. COVID-19 Negative for COVID-19 (SARS-CoV-2 RNA) Normal [facility] Comment on above: Order Comment: COVID Testing: DIAGNOSTIC/ASYMPTOMATIC AGE at Spec BONITA 30 Report age at specimen BONITA? Y First test: NO Employed in Healthcare: NO Symptomatic as defined by CDC: NO Hospitalized for COVID-19? NO ICU: NO Resident in a Congregated Care Setting: NO Order Date: 06/07/21 : Not Performed By: #### M [phone] #### Test performed at: [address] [address] Office Visit (Family Anatoliy arechiga)on 03-07-2021 Follow-up visit Diagnoses/Problems Ocular migraine (346.80) (G43.109) Orders Ocular migraine, Vision loss, left eye Renew: NIFEdipine ER 30 MG Oral Tablet Extended Release 24 Hour; take 1 tablet by mouth once daily Provider Impressions Ramona Wahl is a 30 year old female who presents to the office for 1 month follow up. Tranient ocular migraines working well continue nifedipine 30mg daily CT of the Brain negative labs normal. Chief Complaint Pt is here for a 3 weeks follow up. No refills. Adult Risk Screening There are no spiritual/cultural practices/values/needs that are important to know Initial Fall Risk Screening: RAMONA has not fallen in the last 6 months. Her fall did not result in injury. RAMONA does not have a fear of falling. She does not need assistance with sitting, standing or walking. Does not need assistance walking in her home. She does not need assistance in an unfamiliar setting. The patient is not using an assistive device. Advance directives: Living Will: No living will on file. Healthcare POA: No healthcare proxy on file. Tobacco Screening: RAMONA does not use tobacco. History of Present Illness Ramona Wahl is a 30 year old female who presents to the office for 3 month follow up. Pt had been having transient vision loss. Working dx of ocular migraines. Family Hx: grandfather had multiple strokes Medications: multivit, probiotic Alcohol- rarely; tobacco use-none, illicit drugs none; , baby Allergies: environmental t Surgeries: none gallbladder-cystectomy Review of Systems General: NAD, well-groomed HEENT: No changes in vision or hearing, no rhinorrhea, no nose bleeding Cardiac: no chest pain, no lower extremity edema, no palpitations, no dyspnea on exertion Respiratory: no SOB, no cough GI: no diarrhea, no constipation, no abdominal pain, no melena no hematochezia : no dysuria, no hematuria MSK: no arthritis, no back pain, no joint pain Skin: no rashes, no changing lesions Neuro: no headaches, no tingling, no changes in gait, no dizziness, no syncope Psych: no anxiety, no depression, no changes in personality Active Problems Abdominal pain, RUQ (right upper quadrant) (789.01) (R10.11) Acute otitis media with effusion of left ear (381.00) (H65.192) Allergic rhinitis (477.9) (J30.9) Body mass index (BMI) of 20.0 to 20.9 in adult (V85.1) (Z68.20) Dysmenorrhea (625.3) (N94.6) Encounter for screening for cardiovascular disorders (V81.2) (Z13.6) GERD (gastroesophageal reflux disease) (530.81) (K21.9) Hemorrhoid (455.6) (K64.9) Ocular migraine (346.80) (G43.109) Symptoms consistent with irritable bowel syndrome (564.1) (K58.9) Vision loss, left eye (369.8) (H54.62) Past Medical History No pertinent past medical history History of No pertinent past surgical history Social History Non-smoker (V49.89) (Z78.9) Allergies No Known Drug Allergies Recorded By: Roula Vidales; 12/09/2017 3:02:53 PM Current Meds Medication NameInstructionReason Advil Cold/Sinus 30-200 MG Oral TabletTAKE 1 TABLET Every 8 hoursAcute otitis media with effusion of left ear NIFEdipine ER 30 MG Oral Tablet Extended Release 24 Hourtake 1 tablet by mouth once dailyOcular migraine, Vision loss, left eye Vitals Vital Signs Recorded: 07Mar2021 03:24PM Asmnozsghjc96.1 F Heart Rate70 Otghcgcuhnp61 Myliarqj002 Mhwvgdzxj26 Height5 ft 3 in Dpfmta647 lb 3.2 oz BMI Sllvdbczou10.47 kg/m2 BSA Calculated1.56 O2 Vckzenumzr17 Physical Exam Constitutional: Alert and in no acute distress. Well developed, well nourished. Head and Face: Head and face: Normal. ENT:external ear b/l without mass or erythema, TMs non-blugging/nonerythema tous, oral cavity without ulceration, posterior pharynx non-erythematous, no cobblestoning noted, Neck: No neck mass was observed. Supple. Cardiovascular: Heart rate and rhythm were normal, normal S1 and S2, no gallops, no murmurs and no pericardial rub. Pulmonary: No respiratory distress. Clear bilateral breath sounds. 'Scores and Scales' Signatures Electronically signed by : Frida Lieberman DO; Apr 01 2021 10:08AM EST (Author) Normal [facility] HEAD WO CONTRASTon 2020 CT HEAD WO CONTRAST Patient Name: RAMONA WAHL STUDY: CT HEAD WO CONTRAST; 02/27/2021 8:41 am INDICATION: transient loss of vision on the left mulitiple times. COMPARISON: None. ACCESSION NUMBER(S): [id number] ORDERING CLINICIAN: FRIDA LIEBERMAN TECHNIQUE: Axial sections of the brain was performed without intravenous contrast administration. FINDINGS: INTRACRANIAL: The ventricles, sulci and basal cisterns are within normal limits. The feldman-white differentiation is intact. There is no mass effect or midline shift. There is no extraaxial fluid collection. There is no intracranial hemorrhage. The calvarium is unremarkable. EXTRACRANIAL: Visualized paranasal sinuses and mastoids are clear. IMPRESSION: No acute intracranial process or hemorrhage. Electronically signed by: BEAU WALLACE MD Normal [facility] CT Head without Contraston 0 02-27-2021 CT Head limited WO contrast Normal [facility] Work Phone: CBCon 02-14-2021 Erythrocyte distribution width (RBC) [Ratio] 12.3 % Normal 11.5 - 14.5 [facility] Comment on above: Order Comment: PATIE NT FASTING Performed By: #### C #### [address] [place] [address] Hematocrit (Bld) [Volume fraction] 44.8 % Normal 36.0 - 46.0 [facility] Comment on above: Order Comment: PATIE NT FASTING Performed By: #### C BC #### [place] [id number] Hemoglobin (Bld) [Mass/Vol] 14.0 g/dL Normal 12.0 - 16.0 [facility] Comment on above: Order Comment: PATIE NT FASTING Performed By: #### C BC #### [place] [id number] MCHC (RBC) [Mass/Vol] 31.3 g/dL Low 32.0 - 36.0 [facility] Comment on above: Order Comment: PATIE NT FASTING Performed By: #### C BC #### [place] [id number] MCV (RBC) [Entitic vol] 95 fL Normal 80 - 100 [facility] Comment on above: Order Comment: PATIE NT FASTING Performed By: #### C BC #### [place] [address] Platelets (Bld) [#/Vol] 267 10*3/uL Normal 150 - 450 [facility] Comment on above: Order Comment: PATIE NT FASTING Performed By: #### C BC #### [place] [id number] RBC 4.74 x10E12/L Normal 4.00 - 5.20 [facility] Comment on above: Order Comment: PATIE NT FASTING Performed By: #### C BC #### [place] [id number] WBC (Bld) [#/Vol] 6.4 10*3/uL Normal 4.4 - 11.3 [facility] Comment on above: Order Comment: PATIE NT FASTING Performed By: #### C BC #### [place] [id number] COMPREHENSIVE PANELon 2020 Albumin [Mass/Vol] 3.8 g/dL Normal 3.4 - 5.0 [facility] Comment on above: Order Comment: PATIE NT FASTING Performed By: #### C MP #### [address] [address] ALP [Catalytic activity/Vol] 71 U/L Normal 33 - 110 [facility] Comment on above: Order Comment: PATIE NT FASTING Performed By: #### C MP #### [address] [address] ALT [Catalytic activity/Vol] 16 U/L Normal 7 - 45 [facility] Comment on above: Order Comment: PATIE NT FASTING Result Comment: Feli ents treated with Sulfasalazine may generate falsely decreased results for ALT. Performed By: #### C MP #### [address] [address] Anion gap [Moles/Vol] 9 mmol/L Low 10 - 20 [facility] Comment on above: Order Comment: PATIE NT FASTING Performed By: #### C MP #### [address] [address] AST [Catalytic activity/Vol] 16 U/L Normal 9 - 39 [facility] Comment on above: Order Comment: PATIE NT FASTING Performed By: #### C MP #### [address] [address] Bilirubin [Mass/Vol] 0.5 mg/dL Normal 0.0 - 1.2 [facility] Comment on above: Order Comment: PATIE NT FASTING Performed By: #### C MP #### [address] [address] Calcium [Mass/Vol] 9.4 mg/dL Normal 8.6 - 10.3 [facility] Comment on above: Order Comment: PATIE NT FASTING Performed By: #### C MP #### [address] [address] Chloride [Moles/Vol] 107 mmol/L Normal 98 - 107 [facility] Comment on above: Order Comment: PATIE NT FASTING Performed By: #### C MP #### [address] [address] Creatinine [Mass/Vol] 0.79 mg/dL Normal 0.50 - 1.05 [facility] Comment on above: Order Comment: PATIE NT FASTING Performed By: #### C MP #### [address] [address] GFR- AM. >60 Normal >60 [facility] Comment on above: Order Comment: PATIE NT FASTING Result Comment: CALC ULATIONS OF ESTIMATED GFR ARE PERFORMED USING THE MDRD STUDY EQUATION FOR THE IDMS-TRACEABLE CREATININE METHODS. CLIN CHEM 2007;53:766-72 Performed By: #### C MP #### [address] [address] GFR-NON AM. >60 Normal >60 [facility] Comment on above: Order Comment: PATIE NT FASTING Performed By: #### C MP #### [address] [address] Glucose [Mass/Vol] 73 mg/dL Low 74 - 99 [facility] Comment on above: Order Comment: PATIE NT FASTING Performed By: #### C MP #### [address] [address] HCO3 (Bld) [Moles/Vol] 28 mmol/L Normal 21 - 32 [facility] Comment on above: Order Comment: PATIE NT FASTING Performed By: #### C MP #### [address] [address] Potassium [Moles/Vol] 4.2 mmol/L Normal 3.5 - 5.3 [facility] Comment on above: Order Comment: PATIE NT FASTING Performed By: #### C MP #### [address] [address] Protein [Mass/Vol] 6.5 g/dL Normal 6.4 - 8.2 [facility] Comment on above: Order Comment: PATIE NT FASTING Performed By: #### C MP #### [address] [address] Sodium [Moles/Vol] 140 mmol/L Normal 136 - 145 [facility] Comment on above: Order Comment: PATIE NT FASTING Performed By: #### C MP #### [address] [address] Urea nitrogen [Mass/Vol] 15 mg/dL Normal 6 - 23 [facility] Comment on above: Order Comment: PATIE NT FASTING Performed By: #### C MP #### [address] [address] LIPID PANEL (CORONARY RISK 2 )on 02-14-2021 Cholesterol [Mass/Vol] 153 mg/dL Normal 0 - 199 [facility] Comment on above: Order Comment: PATIE NT FASTING Result Comment: . AGE DESIRABLE BORDERLINE HIGH HIGH 0-19 Y 0 - 169 170 - 199 >/= 200 20-24 Y 0 - 189 190 - 224 >/= 225 >24 Y 0 - 199 200 - 239 >/= 240 All ranges are based on fasting samples. Specific therapeutic targets will vary based on patient-specific cardiac risk. . Pediatric guidelines reference:Pediatrics 2011, 128(S5). Adult guidelines reference: NCEP ATPIII Guidelines, CALEB 2001, 258:2486-97 . Venipuncture immediately after or during the administration of Metamizole may lead to falsely low results. Testing should be performed immediately prior to Metamizole dosing. Performed By: #### L IPID #### [address] [address] Cholesterol in HDL [Mass/Vol] 59.8 mg/dL Normal [facility] Comment on above: Order Comment: PATIE NT FASTING Result Comment: . AGE VERY LOW LOW NORMAL HIGH 0-19 Y < 35 < 40 40-45 ---- 20-24 Y ---- < 40 >45 ---- >24 Y ---- < 40 40-60 >60 . Performed By: #### L IPID #### [address] [address] Cholesterol in LDL [Mass/Vol] 82 mg/dL Normal 0 - 99 [facility] Comment on above: Order Comment: PATIE NT FASTING Result Comment: . NEAR BORD AGE DESIRABLE OPTIMAL HIGH HIGH VERY HIGH 0-19 Y 0 - 109 --- 110-129 >/= 130 ---- 20-24 Y 0 - 119 --- 120-159 >/= 160 ---- >24 Y 0 - 99 100-129 130-159 160-189 >/=190 . Performed By: #### L IPID #### [address] [address] Cholesterol in VLDL [Mass/Vol] 12 mg/dL Normal 0 - 40 [facility] Comment on above: Order Comment: PATIE NT FASTING Performed By: #### L IPID #### [address] [address] Cholesterol.total/Cho lesterol in HDL [Mass ratio] 2.6 {ratio} Normal [facility] Comment on above: Order Comment: PATIE NT FASTING Result Comment: REF VALUES DESIRABLE < 3.4 HIGH RISK > 5.0 Performed By: #### L IPID #### [address] [address] Triglyceride [Mass/Vol] 58 mg/dL Normal 0 - 149 [facility] Comment on above: Order Comment: PATIE NT FASTING Result Comment: . AGE DESIRABLE BORDERLINE HIGH HIGH VERY HIGH 0 D-90 D 19 - 174 ---- ---- ---- 91 D- 9 Y 0 - 74 75 - 99 >/= 100 ---- 10-19 Y 0 - 89 90 - 129 >/= 130 ---- 20-24 Y 0 - 114 115 - 149 >/= 150 ---- >24 Y 0 - 149 150 - 199 200- 499 >/= 500 . Venipuncture immediately after or during the administration of Metamizole may lead to falsely low results. Testing should be performed immediately prior to Metamizole dosing. Performed By: #### L IPID #### [address] [address] Laboratory - Chemistry and C hemistry - challengeon 02-14-2021 Albumin BCP dye [Mass/Vol] 3.8 g/dL 3.4 - 5.0 [facility] Work Phone: ALP [Catalytic activity/Vol] 71 U/L 33 - 110 [facility] Work Phone: ALT With P-5'-P [Catalytic activity/Vol] 16 U/L 7 - 45 [facility] Work Phone: Comment on above: Patients treated wit h Sulfasalazine may generate falsely decreased results for ALT. Anion gap [Moles/Vol] 9 mmol/L below low threshold 10 - 20 [facility] Work Phone: AST With P-5'-P [Catalytic activity/Vol] 16 U/L 9 - 39 [facility] Work Phone: Bilirubin [Mass/Vol] 0.5 mg/dL 0.0 - 1.2 [facility] Work Phone: Calcium [Mass/Vol] 9.4 mg/dL 8.6 - 10.3 [facility] Work Phone: Chloride [Moles/Vol] 107 mmol/L 98 - 107 [facility] Work Phone: CO2 [Moles/Vol] 28 mmol/L 21 - 32 [facility] Work Phone: Creatinine [Mass/Vol] 0.79 mg/dL See Below - [facility] Work Phone: Comment on above: Reference Range: 0.5 0 - 1.05 Glucose [Mass/Vol] 73 mg/dL below low threshold 74 - 99 [facility] Work Phone: Potassium [Moles/Vol] 4.2 mmol/L 3.5 - 5.3 [facility] Work Phone: Protein [Mass/Vol] 6.5 g/dL 6.4 - 8.2 [facility] Work Phone: Sodium [Moles/Vol] 140 mmol/L 136 - 145 [facility] Work Phone: Urea nitrogen [Mass/Vol] 15 mg/dL 6 - 23 [facility] Work Phone: Laboratory - Hematology and Cell countson 02-14-2021 Erythrocyte distribution width (RBC) [Ratio] 12.3 % See Below [facility] Work Phone: Comment on above: Reference Range: 11. 5 - 14.5 Hematocrit (Bld) [Volume fraction] 44.8 % See Below [facility] Work Phone: Comment on above: Reference Range: 36. 0 - 46.0 Hemoglobin (Bld) [Mass/Vol] 14.0 g/dL See Below [facility] Work Phone: Comment on above: Reference Range: 12. 0 - 16.0 MCHC (RBC) [Mass/Vol] 31.3 g/dL below low threshold See Below [facility] Work Phone: Comment on above: Reference Range: 32. 0 - 36.0 MCV (RBC) [Entitic vol] 95 fL 80 - 100 [facility] Work Phone: Platelets (Bld) [#/Vol] 267 10*3/uL 150 - 450 [facility] Work Phone: RBC (Bld) [#/Vol] 4.74 {x10E12/L} See Below [facility] Work Phone: Comment on above: Reference Range: 4.0 0 - 5.20 WBC (Bld) [#/Vol] 6.4 10*3/uL 4.4 - 11.3 [facility] Work Phone: Lipid Panelon 02-14-2021 Cholesterol [Mass/Vol] 153 mg/dL 0 - 199 [facility] Work Phone: Comment on above: . AGE DESIRABLE BORD JAYLON HIGH HIGH 0-19 Y 0 - 169 170 - 199 >/= 200 20-24 Y 0 - 189 190 - 224 >/= 225 >24 Y 0 - 199 200 - 239 >/= 240 All ranges are based on fasting samples. Specific therapeutic targets will vary based on patient-specific cardiac risk.. Pediatric guidelines reference:Pediatrics 2011, 128(S5). Adult guidelines reference: NCEP ATPIII Guidelines, CALEB 2001, 258:2486-97. Venipuncture immediately after or during the administration of Metamizole may lead to falsely low results. Testing should be performed immediately prior to Metamizole dosing. Cholesterol in HDL [Mass/Vol] 59.8 mg/dL [facility] Work Phone: Comment on above: . AGE VERY LOW LOW N ORMAL HIGH 0-19 Y < 35 < 40 40-45 ---- 20- 24 Y ---- < 40 >45 ---- >24 Y ---- < 40 40-60 >60. Cholesterol in LDL [Mass/Vol] 82 mg/dL 0 - 99 [facility] Work Phone: Comment on above: . NEAR BORD AGE RANDOLPH RABLE OPTIMAL HIGH HIGH VERY HIGH 0-19 Y 0 - 109 --- 110-129 >/= 130 ---- 20-24 Y 0 - 119 --- 120-159 >/= 160 ---- >24 Y 0 - 99 100-129 130-159 160-189 >/=190. Cholesterol.total/Cho lesterol in HDL [Mass ratio] 2.6 {ratio} [facility] Work Phone: Comment on above: REF VALUESDESIRABLE < 3.4HIGH RISK > 5.0 Triglyceride [Mass/Vol] 58 mg/dL 0 - 149 [facility] Work Phone: Comment on above: . AGE DESIRABLE BORD JAYLON HIGH HIGH VERY HIGH 0 D-90 D 19 - 174 ---- ---- ----91 D- 9 Y 0 - 74 75 - 99 >/= 100 ---- 10-19 Y 0 - 89 90 - 129 >/= 130 ---- 20-24 Y 0 - 114 115 - 149 >/= 150 ---- >24 Y 0 - 149 150 - 199 200- 499 >/= 500. Venipuncture immediately after or during the administration of Metamizole may lead to falsely low results. Testing should be performed immediately prior to Metamizole dosing. Lipid Panel 12 mg/dL 0 - 40 [facility] Work Phone: No Panel Informationon 02-14 >60 >60 -[facility] Work Phone: Comment on above: CALCULATIONS OF ALBA MATED GFR ARE PERFORMED USING THE MDRD STUDY EQUATION FOR THE IDMS-TRACEABLE CREATININE METHODS. CLIN CHEM 2007;53:766-72 19-49 Yearson 02-12-2021 19-49 Years Diagnoses/Problems Health Maintenance/Risks Encounter for preventive health examination (V70.0) (Z00.00) Assessed Vision loss, left eye (369.8) (H54.62) GERD (gastroesophageal reflux disease) (530.81) (K21.9) Ocular migraine (346.80) (G43.109) Orders Health Maintenance, GERD (gastroesophageal reflux disease), Vision loss, left eye Complete Blood Count; Status:Complete; Done: [id number] 07:39AM Performed:[facility]; Due:[id number];Ordered; For:Health Maintenance, GERD (gastroesophageal reflux disease), Vision loss, left eye; Ordered By:Frida Lieberman; Comprehensive Metabolic Panel; Status:Complete; Done: [id number] 07:39AM Performed:[facility]; Due:[id number];Ordered; For:Health Maintenance, GERD (gastroesophageal reflux disease), Vision loss, left eye; Ordered By:Frida Lieberman; Lipid Panel; Status:Complete; Done: [id number] 07:39AM Performed:[facility]; Due:[id number];Ordered; For:Health Maintenance, GERD (gastroesophageal reflux disease), Vision loss, left eye; Ordered By:Frida Lieberman; Ocular migraine, Vision loss, left eye Start: NIFEdipine ER 30 MG Oral Tablet Extended Release 24 Hour; take 1 tablet by mouth once daily Rx By: Frida Lieberman; Dispense: 30 Days ; #:30 Tablet; Refill: 1;For: Ocular migraine, Vision loss, left eye; TONE = N; Verified Transmission to [facility] [address]; Last Updated By: Cathy Kong; 02/12/2021 6:03:15 PM Vision loss, left eye CT Head without Contrast; Status:Complete; Done: [id number] 08:41AM Performed:;Ordered; For:Vision loss, left eye; Ordered By:Frida Lieberman; Patient taking Metformin or Derivatives? : No Radiologist to Determine Optimal Study : Y What are the patient's signs and symptoms? : transient loss of vision on the left mulitiple times Patient Discussion/Summary Thank you for coming in today! For your transient loss of vision we are working with a diagnosis of ocular migraines. Homework Lets try a medication called nifedipine. You are to take [address] of the Brain to rule out any brain pathology Labs: we will be checking blood counts, liver, kidney, and cholesterol fu in 1 month Provider Impressions Tranient ocular migraines trial of nifedipine. You are to take [address] of the Brain to rule out any brain pathology Labs: we will be checking blood counts, liver, kidney, and cholesterol Chief Complaint Pt is here for her CPE today. PT states that she is having ocular migraines. Pt is also loosing vision in the left eye when she has a whole bunch of squeezing in the head. Eye doctor said her eyes are fine. Adult Risk ScreeningThere are no spiritual/cultural practices/values/needs that are important to know Initial Fall Risk Screening: Her fall did not result in injury. RAMONA does not have a fear of falling. She does not need assistance with sitting, standing or walking. Does not need assistance walking in her home. She does not need assistance in an unfamiliar setting. The patient is not using an assistive device. Advance directives: Living Will: No living will on file. Healthcare POA: No healthcare proxy on file. Tobacco Screening: RAMONA does not use tobacco. History of Present Illness Ramona Wahl is a 30 year old female who presents to the office for cpe and concern. Concern: November eye sight is going out and was gone for 4 hours possible ocular migraine sent to eye doctor history of migraine in the past, has been off since 2014 no trauma grandfather passed very morales lately no pattern in timing more over thinking more not able to do control worsened since baby happening almost everyday this morning 15min caffiene 2 cups of water daily 1 glass of chocolate milk Family Hx: grandfather had multiple strokes Medications: multivit, probiotic Alcohol- rarely; tobacco use-none, illicit drugs none; , baby Allergies: environmental t Surgeries: none gallbladder-cystectomy Review of Systems 10 point ros negative unless otherwise stated in the HPI Active Problems Problems Abdominal pain, RUQ (right upper quadrant) (789.01) (R10.11) Acute otitis media with effusion of left ear (381.00) (H65.192) Allergic rhinitis (477.9) (J30.9) Body mass index (BMI) of 20.0 to 20.9 in adult (V85.1) (Z68.20) Dysmenorrhea (625.3) (N94.6) Encounter for screening for cardiovascular disorders (V81.2) (Z13.6) GERD (gastroesophageal reflux disease) (530.81) (K21.9) Hemorrhoid (455.6) (K64.9) Symptoms consistent with irritable bowel syndrome (564.1) (K58.9) Past Medical History Problems No pertinent past medical history History of No pertinent past surgical history Social History Problems Non-smoker (V48.89) (Z78.9) Allergies Medication No Known Drug Allergies Recorded By: Roula Vidales; 12/09/2017 3:02:53 PM Current Meds Medication NameInstruction Advil Cold/Sinus 30-200 MG Oral TabletTAKE 1 TABLET Every 8 hours Fluti (more content not included)... Normal [facility] - Chemistry and C hemistry - challengeon 01-24-2021 TSH Qn 2.43 m[IU]/L See Below [facility] Work Phone: Comment on above: Reference Range: 0.4 4 - 3.98 TSH testing is performed using different testing methodology at [facility] than at other [facility]. Direct result comparisons should only be made within the same method. T4 - Free Thyroxine, Serumon 01-24-2021 Free T4 [Mass/Vol] 0.86 ng/dL See Below [facility] Work Phone: Comment on above: Reference Range: 0.6 1 - 1.12 Thyroxine Free testing is performed using different testing methodology at [facility] than at other [facility]. Direct result comparisons should only be made within the same method.. Biotin can cause falsely elevated free T4 results. Patients taking a Biotin dose of up to 10 mg/day should refrain from taking Biotin for 24 hours before sample collection. Patient taking a Biotin dose of >10 mg/day should consult with their physician or the laboratory before the blood draw. THYROXINE,FREEon 01-24-2021 THYROXINE,FREE 0.86 ng/dL Normal 0.61 - 1.12 [facility] Comment on above: Result Comment: Thyr oxine Free testing is performed using different testing methodology at [facility] than at [facility]. Direct result comparisons should only be made within the same method. . Biotin can cause falsely elevated free T4 results. Patients taking a Biotin dose of up to 10 mg/day should refrain from taking Biotin for 24 hours before sample collection. Patient taking a Biotin dose of >10 mg/day should consult with their physician or the laboratory before the blood draw. Performed By: #### T 4FRE #### [address] [address] TRIIODOTHYRONINEon TRIIODOTHYRONINE 79 ng/dL Normal 60 - 200 [facility] Comment on above: Performed By: #### T 3 #### [facility] [address] [place] [address] TSH WITH REFLEX TO FREE T4 I F ABNORMALon 01-24-2021 TSH Qn 2.43 m[IU]/L Normal 0.44 - 3.98 [facility] Comment on above: Result Comment: TSH testing is performed using different testing methodology at [facility] than at [facility]. Direct result comparisons should only be made within the same method. Performed By: #### T HYDS #### [address] [address] Triiodothyronine, Level (T3) on 01-24-2021 T3 [Mass/Vol] 79 ng/dL 60 - 200 [facility] Work Phone: Tobacco Screening.on 021 Fall risk assessment a) No falls within the last year [facility] Work Phone: Tobacco Screening. b) No [facility] Work Phone: FREE T4on 07-24-2020 Free T4 [Mass/Vol] 1.3 ng/dL Normal 0.9-1.7 [facility] Comment on above: Result Comment: Perf ormed at [address] [address] Performed By: #### T 4F #### [facility] [address] [address] Liquid PAPon 07-24-2020 Liquid PAP Patient Name: RAMONA WAHL [facility]. Rec. #: [id number] FINAL CYTOLOGIC DIAGNOSIS SPECIMEN ADEQUACY: Satisfactory for evaluation. Endocervical transformation zone component present. GENERAL CATEGORIZATION: Negative for intraepithelial lesion or malignancy. See interpretation-result. INTERPRETATION/RESULT: Negative for intraepithelial lesion or malignancy. Cellular changes associated with atrophy are present. The above diagnosis was rendered at [employer] [address] [place] [address], CLIA number [id number]. This information is included on the report as part of a CLIA requirement. Electronically Signed Out By ALBA Duenas(ASCP) cmi/07/26/2020 Clinical History Date of Last Menstrual Period: 09/07/2019 Clinical Conditions: Reflex High Risk HPV Testing If ASCUS: IF ABNORMAL The Pap test is only a screening test for cervical cancer. As with all screening tests, false-negative results can occur, emphasizing the need for ongoing surveillance and clinical correlation. If there are any questions about the results of this screening test, please call the pathology laboratory. Normal [facility] Comment on above: Performed By: #### C BCD #### [address] [address] T3 TOTALon 07-24-2020 T3 TOTAL 76 NG/DL Low 94-170 [facility] Comment on above: Result Comment: Perf ormed at [address] [address] Performed By: #### C BCD #### [facility] [address] [address] TSHon 07-24-2020 TSH Qn 1.97 MIU/L Normal 0.27-4.20 [facility] Comment on above: Result Comment: Perf ormed at [address] [address] Performed By: #### G L1P #### [facility] [address] [address] URINE CULTUREon 06-12-2020 Bacteria identified Cx Nom (U) Specimen source XXX: CLEAN VOIDED MIDSTREAM Performed at [address] [address] Service Cmnt XXX-Imp: NONE Performed at [address] [address] CC Number Ur: 10,000-50,000 CFU/ml Bacteria identified: NORMAL UROGENITAL [place] [address] : FINAL 06/12/2020 [facility] Comment on above: Performed By: #### C BCD #### [place] [address] CBC with Diffon 06-11-2020 AB IMMATURE NEUT 0.13 K/UL High 0.0-0.1 [facility] Comment on above: Performed By: #### C BCD #### [facility] [address] [address] ABS BASO 0.05 K/UL Normal 0.00-0.22 [facility] Comment on above: Performed By: #### C BCD #### [facility] [address] [address] ABS EOS 0.13 K/UL Normal 0-0.45 [facility] Comment on above: Performed By: #### C BCD #### [facility] [address] [address] ABS NEUTROPHILS 8.66 K/UL High 1.8-7.7 [facility] Comment on above: Performed By: #### C BCD #### [facility] [address] [address] ABS.NEUT.CALCULATED 8.66 K/UL [facility] Comment on above: Result Comment: Perf ormed at [address] [address] Performed By: #### C BCD #### [facility] [address] [address] Basophils/100 WBC (Bld) 0.40 % Normal 0-1 [facility] Comment on above: Performed By: #### C BCD #### [facility] [address] [place] [address] DIFF TYPE AUTO DIFF Normal [facility] Comment on above: Performed By: #### C BCD #### [place] [address] [place] [address] Eosinophils/100 WBC (Bld) 1.10 % Normal 0-3 [facility] Comment on above: Performed By: #### C BCD #### [place] [address] [place] [address] Erythrocyte distribution width (RBC) [Ratio] 13.5 % Normal 11.7-15.0 [facility] Comment on above: Performed By: #### C BCD #### [place] [address] [place] [address] Hematocrit (Bld) [Volume fraction] 39.2 % Normal 36-44 [facility] Comment on above: Performed By: #### C BCD #### [place] [address] [place] [address] Hemoglobin (Bld) [Mass/Vol] 13.0 g/dL Normal 12.0-15.0 [facility] Comment on above: Performed By: #### C BCD #### [place] [address] [place] [address] Lymphocytes (Bld) [#/Vol] 1.96 10*3/uL Normal 1.2-3.2 [facility] Comment on above: Performed By: #### C BCD #### [place] [address] [place] [address] Lymphocytes/100 WBC (Bld) 16.40 % Low 20-40 [facility] Comment on above: Performed By: #### C BCD #### [place] [address] [place] [address] MCH (RBC) [Entitic mass] 32.5 pg Normal 26-34 [facility] Comment on above: Performed By: #### C BCD #### [place] [address] [place] [address] MCHC (RBC) [Mass/Vol] 33.2 % Normal 31-37 [facility] Comment on above: Performed By: #### C BCD #### [facility] [place] [address] [place] [address] MCV (RBC) [Entitic vol] 98.0 fL Normal 80-100 [facility] Comment on above: Performed By: #### C BCD #### [facility] [place] [address] [place] [address] MEAN PLT VOL 10.3 CU Normal 7.0-12.6 [facility] Comment on above: Performed By: #### C BCD #### [facility] [place] [address] [place] [address] Monocytes (Bld) [#/Vol] 1.05 10*3/uL High 0-0.8 [facility] Comment on above: Performed By: #### C BCD #### [place] [address] [place] [address] Monocytes/100 WBC (Bld) 8.80 % High 0-8 [facility] Comment on above: Performed By: #### C BCD #### [place] [address] [address] [place] [address] Neutrophils/100 WBC (Bld) 72.20 % High 50-70 [facility] Comment on above: Performed By: #### C BCD #### [place] [address] [place] [address] Neutrophils/100 WBC (Bld) 1.10 % High 0.0-1.0 [facility] Comment on above: Performed By: #### C BCD #### [facility] [place] [address] [place] [address] NRBC'S 0 /100 WBC Normal 0 [facility] Comment on above: Performed By: #### C BCD #### [facility] [place] [address] [place] [address] Platelets (Bld) [#/Vol] 239 10*3/uL Normal 150-450 [facility] Comment on above: Performed By: #### C BCD #### [facility] [place] [address] [address] [place] [address] RBC (Bld) [#/Vol] 4.00 M/UL Normal 4.0-4.9 [facility] Comment on above: Performed By: #### C BCD #### [place] [address] [place] [address] RDW-SD 48.4 FL Normal 37.0-54.0 [facility] Comment on above: Performed By: #### C BCD #### [address] [address] WBC (Bld) [#/Vol] 12.0 10*3/uL High 4.5-11.0 [facility] Comment on above: Performed By: #### C BCD #### [address] [address] Hematologyon 06-11-2020 Basophils (Bld) [#/Vol] Abs Baso 0.05 K/UL (0.00-0.22 K/UL) 0.00 - 0.22 K/UL [facility] Work Phone: [phone] Basophils/100 WBC (Bld) Basophil 0.40 % (0-1 %) 0 - 1 % S Work Phone: [phone] Eosinophils (Bld) [#/Vol] Abs Eos 0.13 K/UL (0-0.45 K/UL) 0 - 0.45 K/UL S Work Phone: [phone] Eosinophils/100 WBC (Bld) Eosinophil 1.10 % (0-3 %) 0 - 3 % S Work Phone: [phone] Hematocrit (Bld) [Volume fraction] HCT 39.2 % (36-44 %) 36 - 44 % S Work Phone: [phone] Hemoglobin (Bld) [Mass/Vol] HGB 13.0 GM/DL (12.0-15.0 GM/DL) 12.0 - 15.0 GM/DL S Work Phone: [phone] Lymphocytes (Bld) [#/Vol] Abs Lymph 1.96 K/UL (1.2-3.2 K/UL) 1.2 - 3.2 K/UL S Work Phone: Lymphocytes/100 WBC (Bld) Lymphocyte 16.40 % L (20-40 %) Low 20 - 40 % S Work Phone: MCH (RBC) [Entitic mass] MCH 32.5 PG (26-34 PG) 26 - 34 PG S Work Phone: MCV (RBC) [Entitic vol] MCV 98.0 FL (80-100 FL) 80 - 100 FL S Work Phone: Monocytes (Bld) [#/Vol] Abs Casey 1.05 K/UL H (0-0.8 K/UL) High 0 - 0.8 K/UL [facility] Work Phone: Monocytes/100 WBC (Bld) Monocyte 8.80 % H (0-8 %) High 0 - 8 % [facility] Work Phone: Neutrophils (Bld) [#/Vol] Abs.Neut.Calculated 8.66 K/UL (Reference Range: not available) Performed at [address] [address] [facility] Work Phone: Neutrophils (Bld) [#/Vol] Abs Neut 8.66 K/UL H (1.8-7.7 K/UL) High 1.8 - 7.7 K/UL [facility] Work Phone: Platelets (Bld) [#/Vol] PLT 239 K/UL (150-450 K/UL) 150 - 450 K/UL [facility] Work Phone: RBC (Bld) [#/Vol] RBC 4.00 M/UL (4.0-4 .9 M/UL) 4.0 - 4.9 M/UL [facility] Work Phone: WBC (Bld) [#/Vol] WBC 12.0 K/UL H (4.5-11.0 K/UL) High 4.5 - 11.0 K/UL [facility] Work Phone: Imm/Pathon 06-11-2020 Bacteria identified Cx Nom (Unsp spec) Culture Urine Specimen Number: [id number] Sample Collection Date/Time: 06/11/2020 3:56 AM Specimen Source: CVWY Specimen Description: CLEAN VOIDED MIDSTREAM Performed at [address] [address] Special Requests: NONE Performed at [address] [address] [place] Count: 10,000-50,000 CFU/ml Culture Urine: NORMAL UROGENITAL MATEO Performed at [address] [address] Report Status: FINAL 06/12/2020 [employer] Work Phone: Otheron 06-11-2020 Differential cell count method Nom (Bld) Diff Type AUTO DIFF (Reference Range: not available) [employer] Work Phone: Erythrocyte distribution width (RBC) [Entitic vol] RDW SD 48.4 FL (37.0-54.0 FL) 37.0 - 54.0 FL [employer] Work Phone: Erythrocyte distribution width (RBC) [Ratio] RDW CV 13.5 % (11.7-15.0 %) 11.7 - 15.0 % [employer] Work Phone: Immature granulocytes (Bld) [#/Vol] Abs Imm Neut 0.13 K/UL H (0.0-0.1 K/UL) High 0.0 - 0.1 K/UL [employer] Work Phone: MCHC (RBC) [Mass/Vol] MCHC 33.2 % (31-37 %) 31 - 37 % [employer] Work Phone: Neutrophils.immature/ 100 WBC (Bld) Immature Neut % 1.10 % H (0.0-1.0 %) High 0.0 - 1.0 % [employer] Work Phone: Nucleated RBC/100 WBC (Bld) [Ratio] NRBCs 0 /100 WBC (0 /100 WBC) [employer] Work Phone: Platelet mean volume (Bld) [Entitic vol] MPV 10.3 CU (7.0-12.6 CU) 7.0 - 12.6 CU [employer] Work Phone: Segmented neutrophils/100 WBC (Bld) Granulocyte 72.20 % H (50-70 %) High 50 - 70 % [facility] Work Phone: [phone] FLUAV RNA TRISH+probe Ql (Nph) FLU A by PCR NEGATIVE (Reference Range: not available) S Work Phone: [phone] FLUBV RNA TRISH+probe Ql (Nph) FLU B by PCR NEGATIVE (Reference Range: not available) S Work Phone: [phone] SARS-CoV-2 by PCR NEGATIVE (NEG ) [facility] Work Phone: [phone] SARS-CoV-2,INFLUENZA A/B NUC LEIC ACID TESTon 06-11-2020 EUA DISCLAIMER [facility] Comment on above: Result Comment: This test has been authorized by FDA under an EUA for use by CLIA Certified Moderate and High-Complexity laboratories and Point of Care (POC), i.e., in patient care settings operating under a CLIA Certificate of Waiver, Certificate of Compliance, or Certificate of Accreditation. This test has been authorized only for the simultaneous qualitative detection and differentiation of nucleic acid from SARS-CoV-2, influenza A virus, and influenza B virus and not for any other viruses or pathogens. This test is only authorized for the duration of the declaration that circumstances exist justifying the authorization of emergency use of in vitro diagnostic tests for the detection and/or diagnosis of COVID-19, unless the authorization is terminated or revoked sooner. Performed at [place] [address] Performed By: #### F LUCOV #### [facility] [place] [address] FLU A by PCR Negative [facility] Comment on above: Performed By: #### F LUCOV #### [facility] [place] [address] FLU B by PCR Negative [facility] Comment on above: Performed By: #### F LUCOV #### [facility] [place] [address] SARS-CoV-2 by PCR Negative Normal [facility] Comment on above: Performed By: #### F LUCOV #### [facility] [address] [place] [address] CBC with Diffon 03-15-2020 AB IMMATURE NEUT 0.08 K/UL Normal 0.0-0.1 [facility] Comment on above: Performed By: #### C BCD #### [facility] [place] [address] [place] [address] ABS BASO 0.05 K/UL Normal 0.00-0.22 [facility] Comment on above: Performed By: #### C BCD #### [facility] [place] [address] [place] [address] ABS EOS 0.19 K/UL Normal 0-0.45 [facility] Comment on above: Performed By: #### C BCD #### [place] [address] [place] [address] ABS NEUTROPHILS 7.58 K/UL Normal 1.8-7.7 [facility] Comment on above: Performed By: #### C BCD #### [place] [address] [place] [address] ABS.NEUT.CALCULATED 7.58 K/UL Normal [facility] Comment on above: Result Comment: Perf ormed at [address] [address] Performed By: #### C BCD #### [address] [place] [address] Basophils/100 WBC (Bld) 0.50 % Normal 0-1 [facility] Comment on above: Performed By: #### C BCD #### [place] [address] [place] [address] DIFF TYPE AUTO DIFF Normal [facility] Comment on above: Performed By: #### C BCD #### [place] [address] [place] [address] Eosinophils/100 WBC (Bld) 1.90 % Normal 0-3 [facility] Comment on above: Performed By: #### C BCD #### [facility] [address] [address] Erythrocyte distribution width (RBC) [Ratio] 13.2 % Normal 11.7-15.0 [facility] Comment on above: Performed By: #### C BCD #### [facility] [address] [place] [address] Hematocrit (Bld) [Volume fraction] 39.7 % Normal 36-44 [facility] Comment on above: Performed By: #### C BCD #### [facility] [place] [address] [address] [place] [address] Hemoglobin (Bld) [Mass/Vol] 12.5 g/dL Normal 12.0-15.0 [facility] Comment on above: Performed By: #### C BCD #### [facility] [place] [address] [place] [address] Lymphocytes (Bld) [#/Vol] 1.44 10*3/uL Normal 1.2-3.2 [facility] Comment on above: Performed By: #### C BCD #### [place] [address] [place] [address] Lymphocytes/100 WBC (Bld) 14.30 % Low 20-40 [facility] Comment on above: Performed By: #### C BCD #### [place] [address] [place] [address] MCH (RBC) [Entitic mass] 31.7 pg Normal 26-34 [facility] Comment on above: Performed By: #### C BCD #### [place] [address] [place] [address] MCHC (RBC) [Mass/Vol] 31.5 % Normal 31-37 [facility] Comment on above: Performed By: #### C BCD #### [facility] [place] [address] [place] [address] MCV (RBC) [Entitic vol] 100.8 fL High 80-100 [facility] Comment on above: Performed By: #### C BCD #### [facility] [place] [address] [address] [place] [address] MEAN PLT VOL 9.7 CU Normal 7.0-12.6 [facility] Comment on above: Performed By: #### C BCD #### [facility] [place] [address] [place] [address] Monocytes (Bld) [#/Vol] 0.76 10*3/uL Normal 0-0.8 [facility] Comment on above: Performed By: #### C BCD #### [facility] [address] [place] [address] Monocytes/100 WBC (Bld) 7.50 % Normal 0-8 [facility] Comment on above: Performed By: #### C BCD #### [facility] [address] [place] [address] Neutrophils/100 WBC (Bld) 75.00 % High 50-70 [facility] Comment on above: Performed By: #### C BCD #### [facility] [address] [place] [address] Neutrophils/100 WBC (Bld) 0.80 % Normal 0.0-1.0 [facility] Comment on above: Performed By: #### C BCD #### [facility] [address] [address] [place] [address] NRBC'S 0 /100 WBC Normal 0 [facility] Comment on above: Performed By: #### C BCD #### [facility] [address] [address] [place] [address] Platelets (Bld) [#/Vol] 271 10*3/uL Normal 150-450 [facility] Comment on above: Performed By: #### C BCD #### [place] [address] [place] [address] RBC (Bld) [#/Vol] 3.94 M/UL Low 4.0-4.9 [facility] Comment on above: Performed By: #### C BCD #### [facility] [address] [place] [address] RDW-SD 49.4 FL Normal 37.0-54.0 [facility] Comment on above: Performed By: #### C BCD #### [facility] [address] [place] [address] WBC (Bld) [#/Vol] 10.1 10*3/uL Normal 4.5-11.0 [facility] Comment on above: Performed By: #### C BCD #### [facility] [address] [address] GLUCOSE 1 HR. P.D.on 020 Glucose [Mass/Vol] 98 mg/dL Normal 70-139 [facility] Comment on above: Result Comment: Perf ormed at [address] [address] Performed By: #### G L1P #### [facility] [place] [id number] URINE CULTUREon 02-26-2020 Bacteria identified Cx Nom (U) Specimen source XXX: CLEAN VOIDED MIDSTREAM Service Cmnt XXX-Imp: NONE Bacteria identified: COAGULASE NEGATIVE STAPHY[place]OCC[place] [address] : FINAL 02/26/2020 ANTIBIOTIC SUMMER/INTERP ORGANISM: 1 COAGULASE NEGATIVE STAPHYLOCOCCI SUMMER SUMMER CEFAZOLIN <=4 SUSCEPTIBLE OXACILLIN <=0.25 SUSCEPTIBLE TETRACYCLINE <=2 SUSCEPTIBLE TRIMETHOPRIM SULFAMETHOXAZOLE <=0.5/9.5 SUSCEPTIBLE LEVOFLOXACIN <=0.5 SUSCEPTIBLE [facility] Comment on above: Performed By: #### C BCD #### [facility] [address] [address] CBCon 02-22-2020 Erythrocyte distribution width (RBC) [Ratio] 13.9 % Normal 11.5 - 14.5 [facility] Comment on above: Performed By: #### C BC #### [address] [address] Hematocrit (Bld) [Volume fraction] 36.0 % Normal 36.0 - 46.0 [facility] Comment on above: Performed By: #### C BC #### [address] [address] Hemoglobin (Bld) [Mass/Vol] 11.7 g/dL Low 12.0 - 16.0 [facility] Comment on above: Performed By: #### C BC #### [address] [address] MCHC (RBC) [Mass/Vol] 32.5 g/dL Normal 32.0 - 36.0 [facility] Comment on above: Performed By: #### C BC #### [address] [address] MCV (RBC) [Entitic vol] 99 fL Normal 80 - 100 [place] Comment on above: Performed By: #### C BC #### [place] [address] Platelets (Bld) [#/Vol] 240 10*3/uL Normal 150 - 450 [place] Comment on above: Performed By: #### C BC #### [place] [address] RBC (Bld) [#/Vol] 3.63 x10E12/L Low 4.00 - 5.20 [facility] Comment on above: Performed By: #### C BC #### [place] [address] WBC (Bld) [#/Vol] 9.4 10*3/uL Normal 4.4 - 11.3 [place] [facility] Comment on above: Performed By: #### C BC #### [place] [address] COMPREHENSIVE PANELon 2019 Albumin [Mass/Vol] 3.2 g/dL Low 3.4 - 5.0 [place] [facility] Comment on above: Performed By: #### C MP #### [place] [address] ALP [Catalytic activity/Vol] 61 U/L Normal 33 - 110 [place] Comment on above: Performed By: #### C MP #### [place] [address] ALT [Catalytic activity/Vol] 24 U/L Normal 7 - 45 [place] Comment on above: Result Comment: Feli ents treated with Sulfasalazine may generate falsely decreased results for ALT. Performed By: #### C MP #### [place] [address] Anion gap [Moles/Vol] 8 mmol/L Low 10 - 20 [facility] Comment on above: Performed By: #### C MP #### [place] [id number] AST [Catalytic activity/Vol] 19 U/L Normal 9 - 39 [place] Comment on above: Performed By: #### C MP #### [place] [id number] Bilirubin [Mass/Vol] 0.3 mg/dL Normal 0.0 - 1.2 [facility] Comment on above: Performed By: #### C MP #### [place] [address] Calcium [Mass/Vol] 8.8 mg/dL Normal 8.6 - 10.3 [place] [facility] Comment on above: Performed By: #### C MP #### [place] [address] Chloride [Moles/Vol] 108 mmol/L High 98 - 107 [facility] Comment on above: Performed By: #### C MP #### [place] [address] Creatinine [Mass/Vol] 0.52 mg/dL Normal 0.50 - 1.05 [facility] Comment on above: Performed By: #### C MP #### [place] [address] GFR- AM. >60 Normal >60 [place] Comment on above: Result Comment: CALC ULATIONS OF ESTIMATED GFR ARE PERFORMED USING THE MDRD STUDY EQUATION FOR THE IDMS-TRACEABLE CREATININE METHODS. CLIN CHEM 2007;53:766-72 Performed By: #### C MP #### [place] [id number] GFR-NON AM. >60 Normal >60 [facility] son[facility] Comment on above: Performed By: #### C MP #### [place] [id number] Glucose [Mass/Vol] 69 mg/dL Low 74 - 99 [place] [facility] Comment on above: Performed By: #### C MP #### [address] [address] HCO3 (Bld) [Moles/Vol] 27 mmol/L Normal 21 - 32 [place] Comment on above: Performed By: #### C MP #### [address] [address] Potassium [Moles/Vol] 3.9 mmol/L Normal 3.5 - 5.3 [facility] Comment on above: Performed By: #### C MP #### [address] [address] Protein [Mass/Vol] 5.5 g/dL Low 6.4 - 8.2 [place] [facility] Comment on above: Performed By: #### C MP #### [address] [address] Sodium [Moles/Vol] 139 mmol/L Normal 136 - 145 [place] [facility] Comment on above: Performed By: #### C MP #### [address] [address] Urea nitrogen [Mass/Vol] 12 mg/dL Normal 6 - 23 [place] Comment on above: Performed By: #### C MP #### [address] [address] LIPID PANEL (CORONARY RISK 2 )on 02-22-2020 Cholesterol [Mass/Vol] 243 mg/dL High 0 - 199 [place] Comment on above: Result Comment: . AGE DESIRABLE BORDERLINE HIGH HIGH 0-19 Y 0 - 169 170 - 199 >/= 200 20-24 Y 0 - 189 190 - 224 >/= 225 >24 Y 0 - 199 200 - 239 >/= 240 All ranges are based on fasting samples. Specific therapeutic targets will vary based on patient-specific cardiac risk. . Pediatric guidelines reference:Pediatrics 2011, 128(S5). Adult guidelines reference: NCEP ATPIII Guidelines, CALEB 2001, 258:2486-97 . Venipuncture immediately after or during the administration of Metamizole may lead to falsely low results. Testing should be performed immediately prior to Metamizole dosing. Performed By: #### L IPID #### [address] [address] Cholesterol in HDL [Mass/Vol] 68.8 mg/dL Normal [facility] Comment on above: Result Comment: . AGE VERY LOW LOW NORMAL HIGH 0-19 Y < 35 < 40 40-45 ---- 20-24 Y ---- < 40 >45 ---- >24 Y ---- < 40 40-60 >60 . Performed By: #### L IPID #### [address] [address] Cholesterol in LDL [Mass/Vol] 145 mg/dL High 0 - 99 [facility] Comment on above: Result Comment: . NEAR BORD AGE DESIRABLE OPTIMAL HIGH HIGH VERY HIGH 0-19 Y 0 - 109 --- 110-129 >/= 130 ---- 20-24 Y 0 - 119 --- 120-159 >/= 160 ---- >24 Y 0 - 99 100-129 130-159 160-189 >/=190 . Performed By: #### L IPID #### [address] [address] Cholesterol in VLDL [Mass/Vol] 29 mg/dL Normal 0 - 40 [facility] Comment on above: Performed By: #### L IPID #### [address] [address] Cholesterol.total/Cho lesterol in HDL [Mass ratio] 3.5 {ratio} Normal [facility] Comment on above: Result Comment: REF VALUES DESIRABLE < 3.4 HIGH RISK > 5.0 Performed By: #### L IPID #### [address] [address] Triglyceride [Mass/Vol] 146 mg/dL Normal 0 - 149 [facility] Comment on above: Result Comment: . AGE DESIRABLE BORDERLINE HIGH HIGH VERY HIGH 0 D-90 D 19 - 174 ---- ---- ---- 91 D- 9 Y 0 - 74 75 - 99 >/= 100 ---- 10-19 Y 0 - 89 90 - 129 >/= 130 ---- 20-24 Y 0 - 114 115 - 149 >/= 150 ---- >24 Y 0 - 149 150 - 199 200- 499 >/= 500 . Venipuncture immediately after or during the administration of Metamizole may lead to falsely low results. Testing should be performed immediately prior to Metamizole dosing. Performed By: #### L IPID #### [facility] [address] [place] [address] RPRon 01-03-2020 Reagin Ab RPR Ql (S) Normal [facility] Comment on above: Result Comment: NONR [place] [address] Performed By: #### C BCD #### [place] [address] HIV-1 P24 Ag+HIV-1-2 Abon HIV 1 2 ANTIBODY Test Not Indicated [facility] Comment on above: Performed By: #### C BCD #### [place] [address] HIV 12 Ag/Ab [facility] Comment on above: Result Comment: Non Reactive Reference range: NONREACTIVE Performed By: #### C BCD #### [place] [address] HIV Interpretation [facility] Comment on above: Result Comment: Nega tive No evidence of HIV-1 or HIV-2 infection. Should recent infection be suspected, repeat testing may be considered 2-3 weeks after this draw. HIV Information: [facility] Rev. Code 3701.243(E): This information has been disclosed to you from confidential records protected from disclosure by state law. You shall make no further disclosure of this information without the specific, written, and informed release of the individual to whom it pertains or as otherwise permitted by state law. A general authorization for the release of medical or other information is not sufficient for the purpose of the release of HIV test results or diagnoses. Performed at the [facility] unless otherwise noted. Performed By: #### C BCD #### [address] [address] ABO RH ANTIBODY SCREENon ABO and Rh group Nom (Bld) ABO/RH(D) - O POSITIVE ANTIBODY SCREEN - NEGATIVE PT TRANSFUSION HISTORY - BLOOD BANK RECORD SEARCH COMPLETED NO PREVIOUS RECORD Performed at [address] [address] [facility] Comment on above: Performed By: #### C BCD #### [address] [address] CBC WITHOUT DIFFon 0 Erythrocyte distribution width (RBC) [Ratio] 13.2 % Normal 11.7-15.0 [facility] Comment on above: Performed By: #### G L1P #### [address] [address] Hematocrit (Bld) [Volume fraction] 38.2 % Normal 36-44 [facility] Comment on above: Performed By: #### G L1P #### [address] [address] Hemoglobin (Bld) [Mass/Vol] 12.4 g/dL Normal 12.0-15.0 [facility] Comment on above: Performed By: #### G L1P #### [address] [address] MCH (RBC) [Entitic mass] 30.8 pg Normal 26-34 [facility] Comment on above: Performed By: #### G L1P #### [address] [address] MCHC (RBC) [Mass/Vol] 32.5 % Normal 31-37 [facility] Comment on above: Performed By: #### G L1P #### [address] [address] MCV (RBC) [Entitic vol] 95.0 fL Normal 80-100 [facility] Comment on above: Performed By: #### G L1P #### [address] [address] MEAN PLT VOL 10.4 CU Normal 7.0-12.6 [facility] Comment on above: Performed By: #### G L1P #### [address] [address] NRBC'S 0 /100 WBC Normal 0 [facility] Comment on above: Result Comment: Perf ormed at [address] [address] Performed By: #### G L1P #### [address] [address] Platelets (Bld) [#/Vol] 301 10*3/uL Normal 150-450 [facility] Comment on above: Performed By: #### G L1P #### [address] [address] RBC (Bld) [#/Vol] 4.02 M/UL Normal 4.0-4.9 [facility] Comment on above: Performed By: #### G L1P #### [address] [address] RDW-SD 46.5 FL Normal 37.0-54.0 [facility] Comment on above: Performed By: #### G L1P #### [address] [address] WBC (Bld) [#/Vol] 9.0 10*3/uL Normal 4.5-11.0 [facility] Comment on above: Performed By: #### G L1P #### [address] [address] HEP B SURF AGon 12-31-2019 HEP B SURF AG Normal [facility] Comment on above: Result Comment: NEGA TIVE Performed at [address] [address] Performed By: #### H BGP #### [address] [address] GARRY PANORAMAon 12-31-2019 GARRY PANORAMA Specimen sent,Result s will be sent to Physician [facility] Comment on above: Performed By: #### C BCD #### Main Laboratory [address] [address] RUBELLAon 12-31-2019 RUBELLA 74.02 IU/ml Normal [facility] Comment on above: Result Comment: Juilsa benson Range: Negative: <10 IU/ml Positive: => 10 IU/ml NOTE: A positive result is consistant with immunity to Rubella Performed at [place] [address] Performed By: #### C BCD #### [address] [address] TSHon 12-31-2019 TSH Qn 2.91 MIU/L Normal 0.27-4.20 [facility] Comment on above: Result Comment: Perf ormed at [place] [address] Performed By: #### T SHR #### [address] [address] PROGRESSon 12-01-2019 PROGRESS HNO ID: [id number] Author: Jada Brand) Marquis Service: Obstetrics Author Type: Physician Type: Progress Notes Filed: 12/01/2019 5:12 AM Note Text: -------- Attestation signed by Ariel Rose at 12/01/2019 9:12 AM Attending Note I personally saw and examined the patient. I reviewed the resident's note. I agree with the resident's assessment and plan unless otherwise noted. Signature: Ariel Rose, DO -------- OBSTETRICS OB ED PROGRESS NOTE SERVICE DATE: December 01, 2019 SERVICE TIME: 3:46 AM Subjective Patient's stated reason for arrival: dehydration CHIEF COMPLAINT: Nausea and Vomiting HISTORY OF THE PRESENT ILLNESS: The patient is a 29 year old female, , who is at 12w1d with an DEAN of 06/13/2020, Date entered prior to episode creation dating method. Patient arrives as a transfer from [facility] ED for nausea and vomiting where she was given 2L IVF, Zofran, Reglan and Benadryl with improvement in symptoms and no emesis for the past 10 hours. CBC unremarkable. Urine dip with large ketones. Mag, lipase wnl. BMP with mild hypoglycemia and hyponatremia, but otherwise unremarkable. Hcg quant 195k. Her nausea and vomiting that has been chronic this and for which she has taken Vit B6/Unisom and phenergan at home. She states that her regular OB provider has been setting up a Zofran pump for her and she anticipates receiving it sometime this week. Denies vaginal bleeding, Denies leaking of fluid. PAST MEDICAL HISTORY Diagnosis Date - Hyperemesis gravidarum - Hypothyroid PAST SURGICAL HISTORY Procedure Laterality Date - EXTRACTION ERUPTED TOOTH/EXR - NONE Obstetric History T0 L0 SAB0 TAB0 Ectopic0 Multiple0 Live Births0 REVIEW OF SYSTEMS: GENERAL: No malaise or fevers. Endorses weight loss this of nearly 20 lbs. HEENT: Negative for changes in hearing, no nose bleeds or other nasal problems. Endorses mild frontal headache that is intermittent and some darkening of vision with moving from sitting to standing on occasion. NECK: Negative for goiter, pain or significant neck swelling RESPIRATORY: Negative for cough, hemoptysis, wheezing, COPD, dyspnea or shortness of breath CARDIOVASCULAR: Negative for chest pain, leg swelling, hypertension, CHF or palpitations GI: No nausea, vomiting, or diarrhea : No history of dysuria, frequency or incontinence PETROPHYSICAL ENGINEER: Negative for abnormal vaginal bleeding, abnormal vaginal discharge MUSCULOSKELETAL: Negative for joint pain or swelling, back pain or muscle pain Objective LAST VITALS: Pulse BP Resp O2 Sat Temp 74 113/60 16 98 % 36.7 ?C (98.1 ?F) Pain Score Trend (last 4 values) 12/01/19 0359 Pain Level: 0 HT/WT/BMI: Height Weight BMI 160 cm (5' 3) 53.1 kg (117 lb) 20.73 PHYSICAL EXAM: General: WD, WN Heart: RR, S1, S2 Lungs: clear to auscultation Abdomen: soft, nontender, no masses Uterus: soft, NT Extremities: no edema MONITORING/ASSESSMENT: heart rate present and appropriate Ultrasound: Performed bedside by Dr. Potter. FHT 175 bpm. LABS Diagnostic tests reviewed for today's visit: Most recent labs and imaging results. Assessment/Plan 29 year old EGA:12w1d who presents with nausea and vomiting from outside ER. Active Hospital Problems Diagnosis Date Noted - Nausea and vomiting during 12/01/2019 Overview Note: - Transfer from [facility] ED - S/p 2L IVF, Zofran, Reglan and Benadryl - Unremarkable CBC, mag, lipase - Urine dip with large ketones - Patient comfortable without current nausea and no emesis for past 10 hours - PO challenge successful - Patient with Rx for unisom/b6, phenergan and imminent zofran pump at home. Given short course of ODT Zofran until receives pump. - Discharged home in stable condition with instructions to follow up with regular OB provider. Discussed with Dr. Rose, Drs. Carmona and Tariq, and patient. SIGNATURE: Jada Cho DO PATIENT NAME: Ramona Wahl DATE: December 01, 2019 TIME: 3:46 AM PAGER/CONTACT #: Normal [facility] CBC with Diffon 11-08-2019 AB IMMATURE NEUT 0.04 K/UL Normal 0.0-0.1 [facility] Comment on above: Performed By: #### G L1P #### [facility] [place] [address] [place] [address] ABS BASO 0.04 K/UL Normal 0.00-0.22 [facility] Comment on above: Performed By: #### G L1P #### [facility] [place] [address] [place] [address] ABS EOS 0.13 K/UL Normal 0-0.45 [facility] Comment on above: Performed By: #### G L1P #### [facility] [place] [address] [place] [address] ABS NEUTROPHILS 9.55 K/UL High 1.8-7.7 [facility] Comment on above: Performed By: #### G L1P #### [place] [address] [place] [address] ABS.NEUT.CALCULATED 9.55 K/UL Normal [facility] Comment on above: Result Comment: Perf ormed at [place] [address] [place] [place] [address] Performed By: #### G L1P #### [place] [address] [place] [address] Basophils/100 WBC (Bld) 0.30 % Normal 0-1 [facility] Comment on above: Performed By: #### G L1P #### [place] [address] [place] [address] DIFF TYPE AUTO DIFF Normal [facility] Comment on above: Performed By: #### G L1P #### [place] [address] [place] [address] Eosinophils/100 WBC (Bld) 1.10 % Normal 0-3 [facility] Comment on above: Performed By: #### G L1P #### [place] [address] [place] [address] Erythrocyte distribution width (RBC) [Ratio] 12.2 % Normal 11.7-15.0 [facility] Comment on above: Performed By: #### G L1P #### [place] [address] [place] [address] Hematocrit (Bld) [Volume fraction] 44.9 % High 36-44 [facility] Comment on above: Performed By: #### G L1P #### [place] [address] [place] [address] Hemoglobin (Bld) [Mass/Vol] 14.9 g/dL Normal 12.0-15.0 [facility] Comment on above: Performed By: #### G L1P #### [place] [address] [place] [address] Lymphocytes (Bld) [#/Vol] 1.69 10*3/uL Normal 1.2-3.2 [facility] Comment on above: Performed By: #### G L1P #### [place] [address] [place] [address] Lymphocytes/100 WBC (Bld) 13.80 % Low 20-40 [facility] Comment on above: Performed By: #### G L1P #### [facility] [place] [address] [place] [address] MCH (RBC) [Entitic mass] 30.2 pg Normal 26-34 [facility] Comment on above: Performed By: #### G L1P #### [facility] [place] [address] [place] [address] MCHC (RBC) [Mass/Vol] 33.2 % Normal 31-37 [facility] Comment on above: Performed By: #### G L1P #### [facility] [place] [address] [place] [address] MCV (RBC) [Entitic vol] 91.1 fL Normal 80-100 [facility] Comment on above: Performed By: #### G L1P #### [place] [address] [place] [address] MEAN PLT VOL 10.2 CU Normal 7.0-12.6 [facility] Comment on above: Performed By: #### G L1P #### [place] [address] [place] [address] Monocytes (Bld) [#/Vol] 0.78 10*3/uL Normal 0-0.8 [facility] Comment on above: Performed By: #### G L1P #### [place] [address] [place] [address] Monocytes/100 WBC (Bld) 6.40 % Normal 0-8 [facility] Comment on above: Performed By: #### G L1P #### [place] [address] [place] [address] Neutrophils/100 WBC (Bld) 78.10 % High 50-70 [facility] Comment on above: Performed By: #### G L1P #### [place] [address] [place] [address] Neutrophils/100 WBC (Bld) 0.30 % Normal 0.0-1.0 [facility] Comment on above: Performed By: #### G L1P #### [place] [address] [place] [address] NRBC'S 0 /100 WBC Normal 0 [facility] Comment on above: Performed By: #### G L1P #### [place] [address] [place] [address] Platelets (Bld) [#/Vol] 239 10*3/uL Normal 150-450 [facility] Comment on above: Performed By: #### G L1P #### [place] [address] [place] [address] RBC (Bld) [#/Vol] 4.93 M/UL High 4.0-4.9 [facility] Comment on above: Performed By: #### G L1P #### [place] [address] [place] [address] RDW-SD 40.5 FL Normal 37.0-54.0 [facility] Comment on above: Performed By: #### G L1P #### [place] [address] [place] [address] WBC (Bld) [#/Vol] 12.2 10*3/uL High 4.5-11.0 [facility] Comment on above: Performed By: #### G L1P #### [place] [address] [place] [address] COMPREHENSIVE METABOLIC PANE Tye 11-08-2019 Albumin [Mass/Vol] 4.6 g/dL Normal 3.5-5.0 [facility] Comment on above: Performed By: #### [employer] #### [place] [address] [place] [address] Albumin/Globulin [Mass ratio] 1.5 {ratio} Normal 1.5-3.0 [facility] Comment on above: Performed By: #### [employer] #### [place] [address] [place] [address] ALP [Catalytic activity/Vol] 48 U/L Normal 35-125 [facility] Comment on above: Performed By: #### [employer] #### [place] [address] [place] [address] ALT [Catalytic activity/Vol] 14 U/L Normal 5-40 [facility] Comment on above: Performed By: #### C [employer] #### [facility] [address] [address] [place] [id number] Anion gap [Moles/Vol] 15 mmol/L Normal 0-19 [facility] Comment on above: Performed By: #### C [employer] #### [facility] [address] [place] [address] AST [Catalytic activity/Vol] 17 U/L Normal 5-40 [facility] Comment on above: Performed By: #### [employer] #### [facility] [address] [place] [address] Bilirubin [Mass/Vol] 0.6 mg/dL Normal 0.1-1.2 [facility] Comment on above: Performed By: #### [employer] #### [facility] [address] [place] [address] Calcium [Mass/Vol] 10.0 mg/dL Normal 8.5-10.4 [facility] Comment on above: Performed By: #### [employer] #### [facility] [address] [place] [address] Chloride [Moles/Vol] 103 mmol/L Normal 97-107 [facility] Comment on above: Performed By: #### [employer] #### [facility] [address] [place] [address] CO2 [Moles/Vol] 22 mmol/L Low 24-31 [facility] Comment on above: Performed By: #### [employer] #### [facility] [address] [place] [address] Creatinine [Mass/Vol] 0.7 mg/dL Normal 0.4-1.6 [facility] Comment on above: Performed By: #### [employer] #### [facility] [address] [place] [address] GFR/1.73 sq M.predicted MDRD (S/P/Bld) [Vol rate/Area] 107 mL/min/1.73 m2 Normal [facility] Comment on above: Result Comment: GFR ml/min/1.73m2 Stage ----- 90 1 60-89 2 30-59 3 15-29 4 <15 5 For -Americans, multiply EGFR result by 1.210 Calculation not validated for patients under 18 years of age. Performed at [address] [place] [address] Performed By: #### [employer] #### [address] [address] Globulin (S) [Mass/Vol] 3.1 g/dL Normal 1.9-3.7 [facility] Comment on above: Performed By: #### [employer] #### [address] [address] Glucose [Mass/Vol] 86 mg/dL Normal 65-99 [facility] Comment on above: Performed By: #### [employer] #### [address] [address] Potassium [Moles/Vol] 3.8 mmol/L Normal 3.4-5.1 [facility] Comment on above: Performed By: #### [employer] #### [address] [address] Protein [Mass/Vol] 7.7 g/dL Normal 5.9-7.9 [facility] Comment on above: Performed By: #### [employer] #### [address] [address] Sodium [Moles/Vol] 140 mmol/L Normal 133-145 [facility] Comment on above: Performed By: #### [employer] #### [address] [address] Urea nitrogen [Mass/Vol] 12 mg/dL Normal 8-25 [facility] Comment on above: Performed By: #### [employer] #### [address] [address] Urea nitrogen/Creatinine [Mass ratio] 17.1 RATIO Normal 8-21 [facility] Comment on above: Performed By: #### [employer] #### [address] [address] GC/CHLAMYDIA BY AMPon 2019 GC/CHLAMYDIA BY AMP URINE Negative for Chlamydia Trachomatis DNA by Amplification A negative result does not preclude the presence of CT and/or NG infection because results depend on adequate specimen collection, absence of inhibitors, and sufficient DNA to be detected. Negative for Neisseria Gonorrhoeae DNA by Amplification The Bernardo CT/NG test is a FDA cleared diagnostic test for the qualitive detection of DNA of GC/Chlamydia. The sample type, Surepath liquid pap has been validated inhouse and performance characteristics show the assay can detect GC/Chlamydia from this source. [employer] is authorized under CLIA to perform high complexity testing. Performed at [facility], [address], [address], [address] Comment on above: Performed By: #### G PGCCT #### [place] [facility]. [address], [address] [place] [address] LIPASE PSon 11-08-2019 LIPASE PS 18 U/L Normal 16-63 [facility] Comment on above: Result Comment: Perf ormed at [place] [address] Performed By: #### L IPS #### [place] [address] URINE CULTUREon 11-07-2019 Bacteria identified Cx Nom (U) Specimen source XXX: CLEAN VOIDED MIDSTREAM Service Cmnt XXX-Imp: NONE CC Number Ur: >100,000 CFU/mL Bacteria identified: ESCHERICHIA COLI Performed at [place] [address] : FINAL 11/07/2019 ANTIBIOTIC SUMMER/INTERP ORGANISM: 1 ESCHERICHIA COLI SUMMER SUMMER AUGMENTIN <=8/4 SUSCEPTIBLE AMPICILLIN SULBACTAM <=8/4 SUSCEPTIBLE NITROFURANTOIN <=32 SUSCEPTIBLE TETRACYCLINE <=4 SUSCEPTIBLE CEFAZOLIN <=2 SUSCEPTIBLE GENTAMICIN <=4 SUSCEPTIBLE TRIMETHOPRIM SULFAMETHOXAZOLE <=2/38 SUSCEPTIBLE CIPROFLOXACIN <=1 SUSCEPTIBLE AMPICILLIN <=8 SUSCEPTIBLE LEVOFLOXACIN <=2 SUSCEPTIBLE PIPERACILLIN/TAZOBACTAM <=16 SUSCEPTIBLE MEROPENEM <=1 SUSCEPTIBLE [facility] Comment on above: Performed By: #### C BCD #### [place] [address] HCG QUANTITATIVEon 0 HCG QUANTITATIVE 55.9 MIU/ML Normal [facility] Comment on above: Result Comment: WEEK S OF APPROXIMATE HCG GESTATION RANGE (MIU/ML) 3 5.40 - 72.0 4 10.2 - 708 5 217 - 8,245 6 152 - 32,177 7 4,059 - 153,767 8 31,366 - 149,094 9 59,109 - 135,901 10 44,186 - 170,409 12 27,107 - 201,615 14 24,302 - 93,646 15 12,540 - 69,747 16 8,904 - 55,332 17 8,240 - 51,793 18 9,649 - 55,271 Performed at [address] [address] Performed By: #### G L1P #### Main Laboratory [address] [address] U Drug Screenon 04-22-2018 U Amph Scr Negative [facility] Comment on above: Performed By: #### 2 [id number] ####GAMALIEL [address] [place] [address] U Yuli Scr Negative [facility] Comment on above: Performed By: #### 2 [id number] ####GAMALIEL [address] [place] [address] U Benzodia Scr Negative [facility] Comment on above: Performed By: #### 2 [id number] ####GAMALIEL [address]fo[address] [place] [address] U Cannab Scr Negative [facility] Comment on above: Performed By: #### 2 [id number] ####GAMALIEL [address] [place] [address] U Cocaine Scr Negative [facility] Comment on above: Performed By: #### 2 [id number] ####GAMALIEL [address] [place] [address] U Opiate Scr Negative [facility] Comment on above: Performed By: #### 2 [id number] ####GAMALIEL [address] [place] [address] U PCP Scr Negative [facility] Comment on above: Performed By: #### 2 [id number] ####GAMALIEL [address] [place] [address] ED NOTEon 04-18-2018 ED NOTE HNO ID: [id number] Author: Ramona ChavezRn) GENARO Krishnan Service: Nursing Author Type: Registered Nurse Type: ED Notes Filed: 04/18/2018 11:03 AM Note Text: Pt unable to urinate at this time. Given water [facility] ED NOTE HNO ID: [id number] Author: Ramona ChavezRn) GENARO Krishnan Service: Nursing Author Type: Registered Nurse Type: ED Notes Filed: 04/18/2018 10:56 AM Note Text: Pt ambulated to the for urine specimen. [facility] ED PROV NOTEon 04-18-2018 Protein mass conc HNO ID: [id number]: Misa Bearden ([facility]) DolneyService: Emergency MedicineAuthor Type: Nurse PractitionerType: ED Provider NotesFiled: 04/18/2018 1:54 PMNote Text:ED Provider NotePatient Name: Ramona LozadaRN: [id number] DATE: 04/18/18HistoryPatient presents with:Flu Like SymptomsPatient presents to ED with complaint of productive cough. Initiallystarted about one week ago. Stated that she is having coughing fits.+fever, chills, sinus congestion, cough with sputum. Denies chest pain,palpitations, shortness of breath, abdominal pain. Has been told in thepast that she needs to be tested for asthma but has not every had thetesting.History provided by: PatientLanguage product safety coordinator used: NoCoughCough characteristics: ProductiveSputum characteristics: GreenSeverity: ModerateOnset quality: GradualTiming: ConstantProgression: WorseningChronicity: NewContext: upper respiratory infectionRelieved by: NothingWorsened by: NothingIneffective treatments: None triedAssociated symptoms: chills, fever and sinus congestionAssociated symptoms: no chest pain, no diaphoresis, no ear fullness, noear pain, no eye discharge, no headaches, no myalgias, no rash, norhinorrhea, no shortness of breath, no sore throat, no weight loss and nowheezingPAST MEDICAL HISTORYDiagnosis Date- NEGATIVE MEDICAL HISTORYPAST SURGICAL HISTORYProcedure Laterality Date- NONENo family history on file.Social HistorySocial History Main Topics- Smoking status: Never Smoker- Smokeless tobacco: Never Used- Alcohol use Not on file- Drug use: Unknown- Sexual activity: Not on fileALLERGIESNo Known AllergiesReview of SystemsConstitutional: Positive for chills and fever. Negative for diaphoresisand weight loss.HENT: Negative for ear pain, rhinorrhea and sore throat.Eyes: Negative for discharge.Respiratory: Positive for cough. Negative for shortness of breath andwheezing.Cardiovascul ar: Negative for chest pain and palpitations.Gastrointes tinal: Negative for abdominal pain, nausea and vomiting.Genitourinary: Negative for dysuria and urgency.Musculoskeletal: Negative for back pain and myalgias.Skin: Negative for pallor and rash.Neurological: Negative for weakness and headaches.Hematological: Negative for adenopathy. Does not bruise/bleed easily.Psychiatric/Behav ioral: Negative for agitation and behavioral problems.All other systems reviewed and are negative.Physical ExamBP 107/57 Pulse 113 Temp (Src) 98.4 (Oral) Resp 18 Wt 128 lb(58.1kg) SpO2 99% LMP 04/16/2018Physical ExamConstitutional: She is oriented to person, place, and time. She appearswell-developed and well-nourished. No distress.HENT:Head: Normocephalic and atraumatic.Right Ear: External ear normal.Left Ear: External ear normal.Mouth/Throat: Uvula is midline, oropharynx is clear and moist and mucousmembranes are normal.Eyes: Conjunctivae and EOM are normal. Right eye exhibits no discharge.Left eye exhibits no discharge.Neck: Normal range of motion. Neck supple.Cardiovascular: Normal rate.Pulmonary/Chest: Effort normal and breath sounds normal. No respiratorydistress. She has no wheezes.Abdominal: Soft. Bowel sounds are normal. She exhibits no distension.There is no tenderness.Musculoskelet al: Normal range of motion. She exhibits no edema ortenderness.Lymphadenop athy: She has no cervical adenopathy.Neurological: She is alert and oriented to person, place, and time. Nosensory deficit. Coordination normal.Skin: Skin is warm and dry. Capillary refill takes less than 2 seconds. Norash noted. She is not diaphoretic. No erythema.Psychiatric: She has a normal mood and affect. Her behavior is normal.Nursing note and vitals reviewed.Diagnostic TestingED Labs Ordered and ReviewedHCG URINE - ED(POC) - NormalXR CHEST 2V FRONTAL/LAT Final Result IMPRESSION: No acute radiographic abnormality. Transcribed Using Voice Recognition Transcribe Date/Time: Apr 18 2018 11:20A Dictated by: KATIE WALLIS MD This examination was interpreted and the report reviewed and electronically signed by: KATIE WALLIS MD on Apr 18 2018 11:21AM ESTProceduresED Course / Clinical ImpressionClinical Impressions as of Apr 18 1352Bronchitis with bronchospasmMDM / Disposition / PlanMDMChest xray negative for pneumonia. Patient has no risk factors for PE.Discharge with instructions to follow up with PCP. Patient expressedunderstanding.T he patient was DISCHARGED: Counseled patient regarding radiology resultsAND need for follow-up. Discharged home with verbal and writteninstructions. They were instructed to return as needed for persistent orworsening symptoms or any new concerns.Given a prescription for the following medication(s): zpak, medrol dosepack, proventilCondition at time of disposition: stableSIGNATURE: Misa Miramontes APRN.CNPAngela G ([facility]) Psyrcf17/17/18 1354 Normal [facility] XR CHEST 2V FRONTAL/LATon Protein mass conc * * *Final Report* * *DATE OF EXAM: Apr 18 2018 11:12AM HCX [id number] - XR CHEST 2V FRONTAL/LAT / REASON: Cough, new onset * * * * Physician Interpretation * * * *RESULT: EXAMINATION: CHEST RADIOGRAPH (2 VIEW FRONTAL and LATERAL)CLINICAL HISTORY: Cough, new onset,MQ: [id number]_5Comparison: No comparisonRESULT:Lines, tubes, and devices: None.Lungs and pleura: No consolidation. No lung mass. No pleural effusion.Cardiomediastin al silhouette: Normal cardiomediastinal silhouette.Other: .IMPRESSION:No acute radiographic abnormality.Transcribed Using Voice RecognitionTranscribe Date/Time: Apr 18 2018 11:20ADictated by: KATIE WALLIS MDThis examination was interpreted and the report reviewed and electronically signed by: KATIE WALLIS MD on Apr 18 2018 11:21AM [id number] [facility] Vital Signs Date Time Vital Sign Value Performing Clinician Facility 02-16-2025 08:22-0400 Body mass index (BMI) [Ratio] 26.66 kg/m2 Ana Hilario MD Work Phone: [facility] 02-16-2025 08:22-0400 Body weight 67.13 kg Ana Hilario MD Work Phone: [facility] 02-16-2025 08:22-0400 Diastolic blood pressure 64 mm[Hg] Ana Hilario MD Work Phone: [facility] 02-16-2025 08:22-0400 Systolic blood pressure 102 mm[Hg] Ana Hilario MD Work Phone: [facility] 02-09-2025 10:19-0400 Body mass index (BMI) [Ratio] 26.91 kg/m2 Yumiko Andersen SITE CONTROLLER.CNM Work Phone: [facility] 02-09-2025 10:19-0400 Body weight 67.77 kg Yumiko Andersen SITE CONTROLLER.CNM Work Phone: [facility] 02-09-2025 10:19-0400 Diastolic blood pressure 60 mm[Hg] Yumiko Andersen SITE CONTROLLER.CNM Work Phone: [facility] 02-09-2025 10:19-0400 Systolic blood pressure 108 mm[Hg] Yumiko Andersen SITE CONTROLLER.CNM Work Phone: [facility] 02-02-2025 09:21-0400 Body mass index (BMI) [Ratio] 26.58 kg/m2 Ethel Ruiz SITE CONTROLLER.CNM Work Phone: [facility] 02-02-2025 09:21-0400 Body weight 66.95 kg Ethel Ruiz SITE CONTROLLER.CNM Work Phone: [facility] 02-02-2025 09:21-0400 Diastolic blood pressure 72 mm[Hg] Ethel Ruiz SITE CONTROLLER.CNM Work Phone: [facility] 02-02-2025 09:21-0400 Systolic blood pressure 116 mm[Hg] Ethel Ruiz SITE CONTROLLER.CNM Work Phone: [facility] 01-19-2025 10:18-0400 Body mass index (BMI) [Ratio] 25.61 kg/m2 Ana Hilario MD Work Phone: [facility] 01-19-2025 10:18-0400 Body weight 64.5 kg Ana Hilario MD Work Phone: [facility] 01-19-2025 10:18-0400 Diastolic blood pressure 68 mm[Hg] Ana Hilario MD Work Phone: [facility] 01-19-2025 10:18-0400 Systolic blood pressure 102 mm[Hg] Ana Hilario MD Work Phone: [facility] 12-22-2024 08:02-0400 Body mass index (BMI) [Ratio] 24.89 kg/m2 Yumiko Andersen SITE CONTROLLER.CNM Work Phone: [facility] 12-22-2024 08:02-0400 Body weight 62.69 kg Yumiko Andersen SITE CONTROLLER.CNM Work Phone: [facility] 12-22-2024 08:02-0400 Diastolic blood pressure 60 mm[Hg] Yumiko Andersen SITE CONTROLLER.CNM Work Phone: [facility] 12-22-2024 08:02-0400 Systolic blood pressure 100 mm[Hg] Yumiko Andersen SITE CONTROLLER.CNM Work Phone: [facility] 12-08-2024 08:45-0400 Body mass index (BMI) [Ratio] 24.85 kg/m2 Jenny Huitron APRN.SEWING MACHINE ADJUSTER Work Phone: [facility] 12-08-2024 08:45-0400 Body weight 62.6 kg Jenny Haury SITE CONTROLLER.SEWING MACHINE ADJUSTER Work Phone: [facility] 12-08-2024 08:45-0400 Diastolic blood pressure 60 mm[Hg] Jenny Haury SITE CONTROLLER.SEWING MACHINE ADJUSTER Work Phone: [facility] 12-08-2024 08:45-0400 Systolic blood pressure 100 mm[Hg] Jenny Haury SITE CONTROLLER.SEWING MACHINE ADJUSTER Work Phone: [facility] 11-10-2024 08:48-0400 Body mass index (BMI) [Ratio] 23.77 kg/m2 Jenny Haury SITE CONTROLLER.SEWING MACHINE ADJUSTER Work Phone: [facility] 11-10-2024 08:48-0400 Body weight 59.88 kg Jenny Haury SITE CONTROLLER.SEWING MACHINE ADJUSTER Work Phone: [facility] 11-10-2024 08:48-0400 Diastolic blood pressure 60 mm[Hg] Jenny Haury SITE CONTROLLER.SEWING MACHINE ADJUSTER Work Phone: [facility] 11-10-2024 08:48-0400 Systolic blood pressure 100 mm[Hg] Jenny Haury SITE CONTROLLER.SEWING MACHINE ADJUSTER Work Phone: [facility] 10-13-2024 11:14-0400 Body mass index (BMI) [Ratio] 22.87 kg/m2 Ethel Ruiz SITE CONTROLLER.CNM Work Phone: [facility] 10-13-2024 11:14-0400 Body weight 57.61 kg Ethel Ruiz SITE CONTROLLER.CNM Work Phone: [facility] 10-13-2024 11:14-0400 Diastolic blood pressure 62 mm[Hg] Ethel Ruiz SITE CONTROLLER.CNM Work Phone: [facility] 10-13-2024 11:14-0400 Systolic blood pressure 108 mm[Hg] Ethel Ruiz SITE CONTROLLER.CNM Work Phone: [facility] 09-20-2024 08:33-0400 Body mass index (BMI) [Ratio] 21.79 kg/m2 Karoline Bautista MD Work Phone: [facility] 09-20-2024 08:33-0400 Body weight 54.88 kg Karoline Bautista MD Work Phone: [facility] 09-20-2024 08:33-0400 Diastolic blood pressure 56 mm[Hg] Karoline Bautista MD Work Phone: [facility] 09-20-2024 08:33-0400 Systolic blood pressure 96 mm[Hg] Karoline Bautista MD Work Phone: [facility] 08-17-2024 14:30-0400 Body mass index (BMI) [Ratio] 21.79 kg/m2 Ethel Ruiz SITE CONTROLLER.CNM Work Phone: [facility] 08-17-2024 14:30-0400 Body weight 54.88 kg Ethel Ruiz SITE CONTROLLER.CNM Work Phone: [facility] 08-17-2024 14:30-0400 Diastolic blood pressure 64 mm[Hg] Ethel Ruiz SITE CONTROLLER.CNM Work Phone: [facility] 08-17-2024 14:30-0400 Systolic blood pressure 110 mm[Hg] Ethel Ruiz SITE CONTROLLER.CNM Work Phone: [facility] 08-17-2024 10:30-0400 Body height 158.7 cm Jeannie Podlogar SITE CONTROLLER.SEWING MACHINE ADJUSTER Work Phone: [facility] 08-17-2024 10:30-0400 Body mass index (BMI) [Ratio] 21.18 kg/m2 Jeannie Podlogar SITE CONTROLLER.SEWING MACHINE ADJUSTER Work Phone: [facility] 08-17-2024 10:30-0400 Body weight 53.34 kg Jeannie Podlogar SITE CONTROLLER.SEWING MACHINE ADJUSTER Work Phone: [facility] 08-17-2024 10:30-0400 Diastolic blood pressure 76 mm[Hg] Jeannie Podlogar SITE CONTROLLER.SEWING MACHINE ADJUSTER Work Phone: [facility] 08-17-2024 10:30-0400 Heart rate 91 /min Jeannie Podlogar SITE CONTROLLER.SEWING MACHINE ADJUSTER Work Phone: [facility] 08-17-2024 10:30-0400 Respiratory rate 18 /min Jeannie Podlogar SITE CONTROLLER.SEWING MACHINE ADJUSTER Work Phone: [facility] 08-17-2024 10:30-0400 SaO2% (BldA) [Mass fraction] 98 % Jeannie Podlogar SITE CONTROLLER.SEWING MACHINE ADJUSTER Work Phone: [facility] 08-17-2024 10:30-0400 Systolic blood pressure 98 mm[Hg] Jeannie Podlogar SITE CONTROLLER.SEWING MACHINE ADJUSTER Work Phone: [facility] 07-20-2024 08:19-0500 Body mass index (BMI) [Ratio] 21.21 kg/m2 Marielle Jessy SITE CONTROLLER.SEWING MACHINE ADJUSTER Work Phone: [facility] 07-20-2024 08:19-0500 Body weight 53.16 kg Marielle Jessy SITE CONTROLLER.SEWING MACHINE ADJUSTER Work Phone: [facility] 07-20-2024 08:19-0500 Diastolic blood pressure 56 mm[Hg] Marielle [place] SITE CONTROLLER.SEWING MACHINE ADJUSTER Work Phone: [facility] 07-20-2024 08:19-0500 Systolic blood pressure 98 mm[Hg] Marielle [place] SITE CONTROLLER.SEWING MACHINE ADJUSTER Work Phone: [facility] 03-29-2024 16:58-0400 Body height 160 cm Castro Heart MD Work Phone: [facility] 03-29-2024 16:58-0400 Body mass index (BMI) [Ratio] 20.9 kg/m2 Castro Heart MD Work Phone: [facility] 03-29-2024 16:58-0400 Body weight 53.52 kg Castro Heart MD Work Phone: [facility] 03-29-2024 16:58-0400 Diastolic blood pressure 67 mm[Hg] Castro Heart MD Work Phone: [facility] 03-29-2024 16:58-0400 Heart rate 82 /min Castro Heart MD Work Phone: [facility] 03-29-2024 16:58-0400 Systolic blood pressure 100 mm[Hg] Castro Heart MD Work Phone: [facility] 02-13-2024 08:23-0400 Body height 158.3 cm Phillip Castro MD Work Phone: [facility] 02-13-2024 08:23-0400 Body mass index (BMI) [Ratio] 21.72 kg/m2 Phillip Castro MD Work Phone: [facility] 02-13-2024 08:23-0400 Body weight 54.43 kg Phillip Castro MD Work Phone: [facility] 02-13-2024 08:23-0400 Diastolic blood pressure 64 mm[Hg] Phillip Castro MD Work Phone: [facility] 02-13-2024 08:23-0400 Systolic blood pressure 112 mm[Hg] Phillip Castro MD Work Phone: [facility] 01-02-2023 14:54-0400 Body weight 55.79 kg Phillip Castro MD Work Phone: [facility] 01-02-2023 14:54-0400 Diastolic blood pressure 70 mm[Hg] Phillip Castro MD Work Phone: [facility] 01-02-2023 14:54-0400 Systolic blood pressure 112 mm[Hg] Phillip Castro MD Work Phone: [facility] 12-16-2022 14:42-0400 Body weight 64.41 kg Crystal Hurtado MD Work Phone: [facility] 12-16-2022 14:42-0400 Diastolic blood pressure 63 mm[Hg] Crystal Hurtado MD Work Phone: [facility] 12-16-2022 14:42-0400 Systolic blood pressure 98 mm[Hg] Crystal Hurtado MD Work Phone: [facility] 12-13-2022 10:02-0400 Body weight 63.96 kg Crystal Hurtado MD Work Phone: [facility] 12-13-2022 10:02-0400 Diastolic blood pressure 68 mm[Hg] Crystal Hurtado MD Work Phone: [facility] 12-13-2022 10:02-0400 Systolic blood pressure 108 mm[Hg] Crystal Hurtado MD Work Phone: [facility] 12-09-2022 10:04-0400 Body weight 64.68 kg Karoline Batuista MD Work Phone: [facility] 12-09-2022 10:04-0400 Diastolic blood pressure 62 mm[Hg] Karoline Bautista MD Work Phone: [facility] 12-09-2022 10:04-0400 Systolic blood pressure 118 mm[Hg] Karoline Bautista MD Work Phone: [facility] 11-25-2022 11:07-0400 Body weight 63.5 kg Ethel Ruiz SITE CONTROLLER.CNM Work Phone: [facility] 11-25-2022 11:07-0400 Diastolic blood pressure 60 mm[Hg] Ethel Ruiz SITE CONTROLLER.CNM Work Phone: [facility] 11-25-2022 11:07-0400 Systolic blood pressure 100 mm[Hg] Ethel Ruiz SITE CONTROLLER.CNM Work Phone: [facility] 11-19-2022 08:12-0400 Body weight 61.6 kg Ethel Ruiz SITE CONTROLLER.CNM Work Phone: [facility] 11-19-2022 08:12-0400 Diastolic blood pressure 62 mm[Hg] Ethel Ruiz SITE CONTROLLER.CNM Work Phone: [facility] 11-19-2022 08:12-0400 Systolic blood pressure 98 mm[Hg] Ethel Ruiz CNM Work Phone: [facility] 11-04-2022 10:39-0400 Body weight 61.51 kg Phillip Castro MD Work Phone: [facility] 11-04-2022 10:39-0400 Diastolic blood pressure 60 mm[Hg] Phillip Castro MD Work Phone: [facility] 11-04-2022 10:39-0400 Systolic blood pressure 100 mm[Hg] Phillip Castro MD Work Phone: [facility] 10-03-2022 14:44-0400 Body weight 59.88 kg Brijesh Biswas MD Work Phone: [facility] 10-03-2022 14:44-0400 Diastolic blood pressure 62 mm[Hg] Brijesh Biswas MD Work Phone: [facility] 10-03-2022 14:44-0400 Systolic blood pressure 92 mm[Hg] Brijesh Biswas MD Work Phone: [facility] 09-20-2022 10:59-0400 Body weight 58.51 kg Brijesh Biswas MD Work Phone: [facility] 09-20-2022 10:59-0400 Diastolic blood pressure 58 mm[Hg] Brijesh Biswas MD Work Phone: [facility] 09-20-2022 10:59-0400 Systolic blood pressure 94 mm[Hg] Brijesh Biswas MD Work Phone: [facility] 09-05-2022 09:52-0400 Body weight 56.84 kg Karoline Bautista MD Work Phone: [facility] 09-05-2022 09:52-0400 Diastolic blood pressure 60 mm[Hg] Karoline Bautista MD Work Phone: [facility] 09-05-2022 09:52-0400 Systolic blood pressure 100 mm[Hg] Karoline Bautista MD Work Phone: [facility] 08-28-2022 20:30-0400 Diastolic blood pressure 78 mm[Hg] [facility] 08-28-2022 20:30-0400 Heart rate 67 /min [facility] 08-28-2022 20:30-0400 Respiratory rate 17 /min [facility] 08-28-2022 20:30-0400 SaO2% (BldA) [Mass fraction] 100 % [facility] 08-28-2022 20:30-0400 Systolic blood pressure 110 mm[Hg] [facility] 08-28-2022 17:25-0400 Body height 160.02 cm [facility] 08-28-2022 17:25-0400 Body mass index (BMI) [Ratio] 21.6 kg/m2 [facility] 08-28-2022 17:25-0400 Body temperature 97.5 [degF] [facility] 08-28-2022 17:25-0400 Body weight 55.33 kg [facility] 06-07-2022 08:19-0500 Body weight 50.89 kg Brijesh Biswas MD Work Phone: [facility] 06-07-2022 08:19-0500 Diastolic blood pressure 60 mm[Hg] Brijesh Biswas MD Work Phone: [facility] 06-07-2022 08:19-0500 Systolic blood pressure 92 mm[Hg] Brijesh Biswas MD Work Phone: [facility] 05-10-2022 11:40-0500 Body height 160 cm Phillip Castro MD Work Phone: [facility] 05-10-2022 11:40-0500 Body weight 50.62 kg Phillip Castro MD Work Phone: [facility] 05-10-2022 11:40-0500 Diastolic blood pressure 60 mm[Hg] Phillip Castro MD Work Phone: [facility] 05-10-2022 11:40-0500 Systolic blood pressure 90 mm[Hg] Phillip Castro MD Work Phone: [facility] 04-01-2022 09:25-0400 Body height 160 cm Phillip Castro MD Work Phone: [facility] 04-01-2022 09:25-0400 Body weight 52.8 kg Phillip Castro MD Work Phone: [facility] 04-01-2022 09:25-0400 Diastolic blood pressure 54 mm[Hg] Phillip Castro MD Work Phone: [facility] 04-01-2022 09:25-0400 Systolic blood pressure 82 mm[Hg] Phillip Castro MD Work Phone: [facility] 08-03-2021 09:11-0500 Body mass index (BMI) [Ratio] 21.26 kg/m2 Frida C Ray Work Phone: [facility] Work Phone: 08-03-2021 09:11-0500 Body surface area Derived from formula 1.56 m2 Frida C Ray Work Phone: [facility] Work Phone: 08-03-2021 09:11-0500 Body weight 54.43 kg Frida C Ray Work Phone: [facility] Work Phone: 08-03-2021 09:11-0500 Diastolic blood pressure 70 mm[Hg] Frida C Ray Work Phone: [facility] Work Phone: 08-03-2021 09:11-0500 Heart rate 72 /min Frida C Ray Work Phone: [facility] Work Phone: 08-03-2021 09:11-0500 SaO2% (BldA) [Mass fraction] 98 % Frida C Ray Work Phone: [facility] Work Phone: 08-03-2021 09:11-0500 Systolic blood pressure 108 mm[Hg] Frida C Ray Work Phone: [facility] Work Phone: 03-07-2021 15:24-0400 Body height 160.02 cm Frida C Ray Work Phone: [facility] Work Phone: 03-07-2021 15:24-0400 Body mass index (BMI) [Ratio] 21.47 kg/m2 Frida C Ray Work Phone: [facility] Work Phone: 03-07-2021 15:24-0400 Body surface area Derived from formula 1.56 m2 Frida C Ray Work Phone: [facility] Work Phone: 03-07-2021 15:24-0400 Body temperature 97.1 [degF] Frida C Ray Work Phone: [facility] Work Phone: 03-07-2021 15:24-0400 Body weight 54.98 kg Frida C Ray Work Phone: [facility] Work Phone: 03-07-2021 15:24-0400 Diastolic blood pressure 60 mm[Hg] Frida C Ray Work Phone: [facility] Work Phone: 03-07-2021 15:24-0400 Heart rate 70 /min Frida C Ray Work Phone: [facility] Work Phone: 03-07-2021 15:24-0400 Respiratory rate 16 /min Frida C Ray Work Phone: [facility] Work Phone: 03-07-2021 15:24-0400 SaO2% (BldA) [Mass fraction] 97 % Frida C Ray Work Phone: [facility] Work Phone: 03-07-2021 15:24-0400 Systolic blood pressure 104 mm[Hg] Frida Lieberman Work Phone: [facility] Work Phone: 02-12-2021 17:30-0400 Body height 160.02 cm Ana Luigi Boateng Work Phone: [facility] Work Phone: 02-12-2021 17:30-0400 Body mass index (BMI) [Ratio] 21.26 kg/m2 Ana Luigi Boateng Work Phone: [facility] Work Phone: 02-12-2021 17:30-0400 Body surface area Derived from formula 1.56 m2 Ana Boateng Work Phone: [facility] Work Phone: 02-12-2021 17:30-0400 Body temperature 96.9 [degF] Ana Luigi Boateng Work Phone: [facility] Work Phone: 02-12-2021 17:30-0400 Body weight 54.43 kg Ana Luigi Boateng Work Phone: [facility] Work Phone: 02-12-2021 17:30-0400 Diastolic blood pressure 60 mm[Hg] Ana Boateng Work Phone: [facility] Work Phone: 02-12-2021 17:30-0400 Heart rate 75 /min Ana Boateng Work Phone: [facility] Work Phone: 02-12-2021 17:30-0400 Respiratory rate 18 /min Ana Boateng Work Phone: [facility] Work Phone: 02-12-2021 17:30-0400 SaO2% (BldA) [Mass fraction] 97 % Ana Boateng Work Phone: [facility] Work Phone: 02-12-2021 17:30-0400 Systolic blood pressure 130 mm[Hg] Ana Boateng Work Phone: [facility] Work Phone: 10-25-2020 11:53-0400 Body height 160.02 cm Ana Boateng Work Phone: [facility] Work Phone: 10-25-2020 11:53-0400 Body mass index (BMI) [Ratio] 20.55 kg/m2 Ana Boateng Work Phone: [facility] Work Phone: 10-25-2020 11:53-0400 Body surface area Derived from formula 1.53 m2 Ana Boateng Work Phone: [facility] Work Phone: 10-25-2020 11:53-0400 Body weight 52.62 kg Ana Boateng Work Phone: [facility] Work Phone: 10-25-2020 11:53-0400 Diastolic blood pressure 54 mm[Hg] Ana Boateng Work Phone: [facility] Work Phone: 10-25-2020 11:53-0400 Heart rate 79 /min Ana Boateng Work Phone: [facility] Work Phone: 10-25-2020 11:53-0400 SaO2% (BldA) [Mass fraction] 97 % Ana Boateng Work Phone: [facility] Work Phone: 10-25-2020 11:53-0400 Systolic blood pressure 90 mm[Hg] Ana Boateng Work Phone: [facility] Work Phone: 06-13-2020 08:07-0500 BMI (Body Mass Index) 24.87 kg/m2 Bessy Tan [facility] 06-13-2020 08:07-0500 [facility] 01:11-0500 BMI (Body Mass Index) 24.87 kg/m2 [facility] 06-11-2020 01:11-0500 Body weight 61.69 kg [facility] Encounters Encounter Date Encounter Type Care Provider Facility Start: 02-16-2025 End: 02-16-2025 Patient encounter procedure Ana Hilario MD Work Phone: OB/Gynecology Comment on above: Encounter for superv ision of other normal in third trimester (HCC) (Primary Dx); History of hypothyroidism; 38 weeks gestation of (HCC) Start: 02-16-2025 End: 02-16-2025 ambulatory ALFREDO DURAN Facility:[facility] Start: 02-10-2025 End: 02-10-2025 ambulatory [facility] Start: 02-10-2025 End: 02-10-2025 Patient encounter procedure [facility] Comment on above: Population Health Na vigation Outreach ( to PCP/OB/) Start: 02-09-2025 End: 02-09-2025 Patient encounter procedure Yumiko Andersen APRN.CNM Work Phone: OB/Gynecology Comment on above: 37 weeks gestation o f (HCC) (Primary Dx); History of hypothyroidism; Encounter for supervision of other normal in third trimester (HCC) Start: 02-09-2025 End: 02-09-2025 ambulatory ALFREDO DURAN Facility:[facility] Start: 02-02-2025 End: 02-02-2025 Patient encounter procedure Ethel Ruiz APRN.CNM Work Phone: OB/Gynecology Comment on above: Encounter for superv ision of other normal in third trimester (HCC) (Primary Dx); 36 weeks gestation of (HCC); History of hypothyroidism Start: 02-02-2025 End: 02-02-2025 ambulatory ALFREDO DURAN Facility:[facility] Start: 01-19-2025 End: 01-19-2025 Patient encounter procedure Ana Hilario MD Work Phone: OB/Gynecology Comment on above: 34 weeks gestation o f (HCC) (Primary Dx); Encounter for supervision of other normal in third trimester (HCC); History of hypothyroidism Start: 01-19-2025 End: 01-19-2025 ambulatory ALFREDO DURAN Facility:[facility] Start: 01-05-2025 End: 01-05-2025 ambulatory KAROLINE BAUTISTA Facility:[facility] Start: 12-22-2024 End: 12-22-2024 Patient encounter procedure Yumiko Andersen APRN.CNM Work Phone: OB/Gynecology Comment on above: 30 weeks gestation o f (HCC) (Primary Dx); Encounter for supervision of other normal in third trimester ([facility]); Bilateral hip pain Start: 12-22-2024 End: 12-22-2024 ambulatory ALFREDO DURAN Facility:[facility] Start: 12-13-2024 End: 02-12-2025 Follow-up encounter Jenny Huitron APRN.CNP Work Phone: OB/Gynecology Start: 12-08-2024 End: 12-08-2024 Patient encounter procedure Jenny Huitron APRN.CNP Work Phone: OB/Gynecology Comment on above: Encounter for superv ision of other normal in second trimester (HCC) (Primary Dx); 28 weeks gestation of (HCC); History of hypothyroidism; Encounter for supervision of normal intrauterine in multigravida, antepartum ([facility]) Start: 12-08-2024 End: 12-08-2024 ambulatory ALFREDO DURAN Facility:[facility] Start: 11-30-2024 End: 12-06-2024 ambulatory Jenny Huitron APRN.CNP Work Phone: OB/Gynecology Comment on above: FMLA paperwork Start: 11-30-2024 End: 12-06-2024 E-mail encounter from caregiver Jenny Huitron SARAHI Work Phone: OB/Gynecology Start: 11-10-2024 End: 11-10-2024 Patient encounter procedure Jenny Freemanlisa MCCLAIN Work Phone: OB/Gynecology Comment on above: Encounter for superv ision of other normal in second trimester (HCC) (Primary Dx); 24 weeks gestation of (HCC); History of hypothyroidism; Screening for diabetes mellitus Start: 11-10-2024 End: 11-10-2024 ambulatory ALFREDO DURAN Facility:[facility] Start: 10-13-2024 End: 10-13-2024 Patient encounter procedure Ethel Ruiz APRN.CNM Work Phone: OB/Gynecology Comment on above: Encounter for superv ision of other normal in second trimester (HCC) (Primary Dx); 20 weeks gestation of (HCC); History of hypothyroidism; History of anxiety Encounter for anatomic survey (HCC) (Primary Dx); 21 weeks gestation of (HCC) Start: 10-13-2024 End: 10-13-2024 ambulatory ALFREDO DURAN Facility:[facility] Start: 09-27-2024 End: 09-28-2024 Telephone encounter Phillip Castro MD Work Phone: OB/Gynecology Comment on above: breast pump Start: 09-20-2024 End: 09-20-2024 Patient encounter procedure Karoline Bautista MD Work Phone: OB/Gynecology Comment on above: Encounter for superv ision of normal intrauterine in multigravida, antepartum (HCC) (Primary Dx) Start: 09-20-2024 End: 09-20-2024 ambulatory ALFERDO DURAN Facility:[facility] Start: 08-17-2024 End: 08-17-2024 ambulatory ALFREDO DURAN Facility:[facility] Start: 08-17-2024 End: 08-17-2024 Patient encounter procedure Ethel Ruiz APRN.CNM Work Phone: OB/Gynecology Comment on above: Encounter for superv ision of other normal in second trimester (Primary Dx); 12 weeks gestation of ; History of anxiety; History of hypothyroidism; related nausea, antepartum Start: 08-17-2024 End: 08-17-2024 ambulatory ALFREDO DURAN Facility:[facility] Start: 08-17-2024 Encounter for genera l adult medical examination without abnormal findings JEANNIE TAYLOR [facility] Start: 08-17-2024 End: 08-17-2024 Patient encounter procedure Jeannie Taylor SITE CONTROLLERJACOB Work Phone: [facility] [place] Comment on above: Encounter for medica l examination to establish care (Primary Dx) Encounter for antena steve screening for malformation using ultrasound (Primary Dx); 12 weeks gestation of Start: 08-17-2024 End: 08-17-2024 Patient encounter status Jeannie Taylor APRN.CNP Work Phone: [facility] Work Phone: Start: 07-20-2024 End: 09-19-2024 Follow-up encounter Marielle Jiménez APRN.CNP Work Phone: OB/Gynecology Start: 07-20-2024 End: 07-20-2024 ambulatory ANA BOATENG Facility:[facility] Start: 07-20-2024 End: 07-20-2024 Patient encounter procedure Marielle Jiménez APRN.CNP Work Phone: OB/Gynecology Comment on above: with uncer tain dates, antepartum (Primary Dx); 8 weeks gestation of ; Screen for STD (sexually transmitted disease); Screening for cervical cancer; Encounter for supervision of normal intrauterine in multigravida, antepartum; Hyperemesis of Start: 07-17-2024 End: 07-17-2024 Emergency department patient visit Maxim Francisco Facility:[facility] Start: 07-15-2024 End: 07-15-2024 ambulatory Ethel Ruiz APRN.CNM Work Phone: OB/Gynecology Comment on above: Fluids Start: 07-12-2024 End: 07-12-2024 ambulatory Ethel Ruiz APRN.CNM Work Phone: OB/Gynecology Comment on above: Nausea and vomiting in (Primary Dx); 7 weeks gestation of ; History of hypothyroidism Start: 07-12-2024 End: 07-12-2024 Telemedicine consultation with patient Ethel Ruiz APRN.CNM Work Phone: OB/Gynecology Start: 03-29-2024 End: 03-29-2024 Office outpatient new 20 minutes Castro Heart MD Work Phone: [facility] Comment on above: Impacted cerumen of left ear (Primary Dx) Start: 03-29-2024 End: 03-29-2024 [facility] Start: 02-13-2024 End: 02-13-2024 Patient encounter procedure Phillip Castro MD Work Phone: OB/Gynecology Comment on above: Encounter for gyneco logical examination (general) (routine) without abnormal findings (Primary Dx) Start: 02-13-2024 End: 02-13-2024 Patient encounter status Phillip Castro MD Work Phone: [facility] Start: 01-02-2023 End: 01-02-2023 Patient encounter procedure Phillip Castro MD Work Phone: OB/Gynecology Comment on above: state (Pr imary Dx) Start: 12-16-2022 End: 12-16-2022 Patient encounter procedure Crystal Hurtado MD Work Phone: OB/Gynecology Comment on above: Supervision of pregn jess with history of infertility, antepartum (Primary Dx); 40 weeks gestation of Start: 12-13-2022 End: 12-13-2022 Patient encounter procedure Crystal Hurtado MD Work Phone: OB/Gynecology Comment on above: Supervision of pregn jess with history of infertility, antepartum (Primary Dx); 40 weeks gestation of Start: 12-09-2022 End: 12-09-2022 Patient encounter procedure Karoline Bautista MD Work Phone: OB/Gynecology Comment on above: Supervision of pregn jess with history of infertility, antepartum (Primary Dx); 39 weeks gestation of Start: 11-25-2022 End: 11-25-2022 Patient encounter procedure Ethel Ruiz APRN.CNM Work Phone: OB/Gynecology Comment on above: 37 weeks gestation o f (Primary Dx) Start: 11-19-2022 End: 11-19-2022 Patient encounter procedure Ethel Ruiz APRN.CNM Work Phone: OB/Gynecology Comment on above: 36 weeks gestation o f (Primary Dx) Start: 11-04-2022 End: 11-04-2022 Patient encounter procedure Phillip Castro MD Work Phone: OB/Gynecology Comment on above: 34 weeks gestation o f (Primary Dx); Supervision of with history of infertility, antepartum Start: 10-03-2022 End: 10-03-2022 Patient encounter procedure Brijesh Biswas MD Work Phone: OB/Gynecology Comment on above: Supervision of pregn jess with history of infertility, antepartum (Primary Dx); 30 weeks gestation of Start: 09-20-2022 End: 09-20-2022 Patient encounter procedure Brijesh Biswas MD Work Phone: OB/Gynecology Comment on above: Encounter for superv ision of other normal in third trimester (Primary Dx); 28 weeks gestation of ; Need for vaccination Start: 09-09-2022 ambulatory Karoline martinez MD Work Phone: OB/Gynecology Comment on above: Screenings Start: 09-05-2022 End: 09-05-2022 Patient encounter procedure Karoline Bautista MD Work Phone: OB/Gynecology Comment on above: 26 weeks gestation o f (Primary Dx); Encounter for supervision of other normal in second trimester Start: 08-28-2022 End: 08-28-2022 Emergency department patient visit [facility] Start: 08-28-2022 Telephone encounter Crystal Hurtado MD Work Phone: OB/Gynecology Comment on above: OB Vomiting Start: 07-05-2022 Telephone encounter Phillip christensen MD Work Phone: OB/Gynecology Comment on above: Breast Pump Order Start: 06-07-2022 End: 06-07-2022 Patient encounter procedure Brijesh Biswas MD Work Phone: OB/Gynecology Comment on above: Encounter for superv ision of other normal in first trimester (Primary Dx); 13 weeks gestation of Start: 05-16-2022 ambulatory Phillip Kidd Work Phone: OB/Gynecology Comment on above: [place] Start: 05-10-2022 ambulatory Phillip Kidd Work Phone: OB/Gynecology Comment on above: Baby due date Start: 05-10-2022 End: 05-10-2022 Patient encounter procedure Phillip Castro MD Work Phone: OB/Gynecology Comment on above: Encounter for superv ision of other normal in first trimester (Primary Dx); 9 weeks gestation of Start: 05-08-2022 Telephone encounter Crystal Hurtado MD Work Phone: OB/Gynecology Comment on above: OB N/V Start: 05-02-2022 End: 05-02-2022 Nursing evaluation of patient and report Nurse Pnob [facility] Work Phone: OB/Gynecology Comment on above: Supervision of pregn jess with history of infertility, antepartum (Primary Dx); related nausea, antepartum; History of anxiety; History of hypothyroidism Start: 05-01-2022 ambulatory Phillip Kidd Work Phone: OB/Gynecology Comment on above: Doctor Apt 05/02 Start: 04-08-2022 ambulatory Phillip Kidd Work Phone: OB/Gynecology Comment on above: Start: 04-08-2022 Telephone encounter Phillip christensen MD Work Phone: OB/Gynecology Comment on above: Received Outside Med ical Records Start: 04-05-2022 Telephone encounter Phillip christensen MD Work Phone: OB/Gynecology Comment on above: Received Outside [facility] Start: 04-01-2022 End: 04-01-2022 Patient encounter procedure Phillip Castro MD Work Phone: OB/Gynecology Comment on above: Encounter for gyneco logical examination without abnormal finding (Primary Dx); Encounter for screening for malignant neoplasm of cervix Start: 04-01-2022 End: 04-01-2022 Patient encounter status Phillip Castro MD Work Phone: OB/Gynecology Start: 11-30-2021 Postop follow up vis it related to original px No PCP None -[facility] Work Phone: Start: 11-28-2021 NPV, Provider: Ramona Morse, Status: Pen, Time: 7:40 AM No PCP None [facility] Work Phone: Start: 11-26-2021 Chart Update No PCP None -[facility] Work Phone: Start: 11-07-2021 Chart Update No PCP None -[facility] Work Phone: Start: 11-06-2021 Patient encounter procedure No PCP None -[facility] Work Phone: Start: 10-26-2021 Chart Update Frida C Ray Work Phone: [facility] Work Phone: Start: 09-27-2021 Rx Change Frida C Ray Work Phone: [facility] Work Phone: Start: 08-24-2021 Rx Renewal Frida C Ray Work Phone: [facility] Work Phone: Start: 08-03-2021 Office consultation new/estab patient 60 min Frida C Ray Work Phone: [facility] Work Phone: Start: 07-27-2021 NPV, Provider: Alfredo Bowden, Status: Pen, Time: 8:40 AM Frida C Ray Work Phone: [facility] Work Phone: Start: 07-18-2021 AUDIT Frida C Ray Work Phone: [facility] Work Phone: Start: 03-07-2021 Current tobacco non- user cad cap copd pv dm Frida C Ray Work Phone: [facility] Work Phone: Start: 03-07-2021 Office outpatient vi sit 15 minutes Frida C Ray Work Phone: [facility] Work Phone: Start: 03-01-2021 Chart Update Frida C Ray Work Phone: [facility] Work Phone: Start: 02-15-2021 Chart Update Ana alfaro Work Phone: [facility] Work Phone: Start: 02-12-2021 Current tobacco non- user cad cap copd pv dm Ana Boateng Work Phone: [facility] Work Phone: Start: 02-12-2021 Office outpatient vi sit 25 minutes Frida C Ray Work Phone: [facility] Work Phone: Start: 10-25-2020 Current tobacco non- user cad cap copd pv dm Ana Boateng Work Phone: [facility] Work Phone: Start: 04-22-2018 End: 04-23-2018 Patient encounter procedure PAULETTE BIGGS Facility:[facility] Start: 04-22-2018 End: 04-23-2018 Patient encounter procedure PAULETTE BIGGS Facility:[facility] Start: 04-18-2018 End: 04-18-2018 Emergency department patient visit [facility] Start: 08-29-2017 End: 08-30-2017 Patient encounter procedure Kalie Sylvester Facility:[facility] Start: 06-19-2017 End: 06-20-2017 Patient encounter procedure PAULETTE BIGGS Facility:[facility] Bessy Tan S Procedures Date Procedure Procedure Detail Performing Clinician Start: 02-16-2025 Urnls dip stick/tabl et rgnt non-auto w/o micrscp Karoline Bautista MD Work Phone: Start: 02-09-2025 Urnls dip stick/tabl et rgnt non-auto w/o micrscp Yumiko Andersen SITE CONTROLLER.CNM Work Phone: Start: 02-02-2025 Urnls dip stick/tabl et rgnt non-auto w/o micrscp Ethel Ruiz SITE CONTROLLER.CNM Work Phone: Start: 01-19-2025 Urnls dip stick/tabl et rgnt non-auto w/o micrscp Ana Hilario MD Work Phone: Start: 10-13-2024 Us preg uterus after 1st trimest 1/ gestation Marielle [place] SITE CONTROLLER.SEWING MACHINE ADJUSTER Work Phone: Start: 08-17-2024 Antibody screen NANNETTE DURAN Comment on above: Order Comment: Speci men Type: BLOOD SPECIMEN Ordering Facility: [facility] Address: [address] [place] [address] Performed By: #### T SPN #### [facility] CLIA [id number] [address] [place], [place] [address] [address] [place] Start: 08-17-2024 Us preg uterus after 1st trimest 1/1st gestation Marielle Jessy SITE CONTROLLER.SEWING MACHINE ADJUSTER Work Phone: Start: 07-20-2024 Us uterus limited 1/> fetuses Marielle [place] SITE CONTROLLER.SEWING MACHINE ADJUSTER Work Phone: Start: 12-16-2022 URINE OB DIP B/O Crystal Hurtado MD Work Phone: Start: 12-13-2022 URINE OB DIP B/O Crystal Hurtado MD Work Phone: Start: 12-09-2022 URINE OB DIP B/O Melvin Bautista MD Work Phone: Start: 11-25-2022 URINE OB DIP B/O Césarssic antoni Ruiz SITE CONTROLLER.CNM Work Phone: Start: 11-19-2022 URINE OB DIP B/O Jessic a Ruiz SITE CONTROLLER.CNM Work Phone: Start: 11-04-2022 URINE OB DIP B/O Phillip alatorre MD Work Phone: Start: 10-03-2022 URINE OB DIP B/O Brijesh Biswas MD Work Phone: Start: 09-20-2022 URINE OB DIP B/O Brijesh Biswas MD Work Phone: Start: 09-05-2022 URINE OB DIP B/O Melvin Bautista MD Work Phone: Start: 06-07-2022 URINE OB DIP B/O Brijesh Biswas MD Work Phone: Start: 05-10-2022 [place]adna chlamydia trachomatis amplified probe tq Phillip Castro MD Work Phone: Start: 04-01-2022 Microscopic observat ion [Identifier] in Cervix by Cyto stain Castro Heart MD Work Phone: Start: 02-14-2021 Lipid 1996 panel - S sobeida or Plasma Castro [facility] MD Work Phone: [facility] [place] [facility] [place] Plan of Treatment Date Care Activity Detail Author Start: 2042 Zoster Vaccines (1 o f 2) Zoster Vaccines (1 of 2) [facility] Start: 09-20-2032 Urine microalbumin profile [facility] Start: 07-20-2029 Screening for malign ant neoplasm of cervix Cervical Cancer Screening [facility] Start: 04-01-2027 HPV TESTING HPV TESTING [facility] Start: 04-01-2027 PAP TESTING PAP TESTING [facility] Start: 02-14-2026 Lipid panel Lipid Panel [facility] Start: 08-17-2025 Covid-19 Vaccine () Covid-19 Vaccine () [facility] Comment on above: Postponed from 01/31 (Declined at this time) Start: 08-17-2025 End: 08-17-2025 Patient encounter procedure 08/17/2025 8:40 AM EDT Office Visit [facility] [place] [address] [place] [address] PodJeannie bashir APRN.SEWING MACHINE ADJUSTER [address] [place] [address] Yearly Exam [facility] [place] Comment on above: Yearly Exam Start: 04-01-2025 PAP TESTING PAP TESTING [facility] Start: 04-01-2025 Screening for malign ant neoplasm of cervix [facility] Start: 02-23-2025 End: 02-23-2025 Patient encounter procedure 02/23/2025 8:10 AM EDT Routine Office Visit OB/Gynecology [address] [place] [address] Ana Hilario MD [address] [place] [address] OB OB/Gynecology Comment on above: OB Start: 02-16-2025 End: 02-16-2025 Patient encounter procedure 02/16/2025 8:30 AM EDT Routine Office Visit OB/Gynecology [address] [place] [address] Karoline Bautista MD [address] [place] [address] OB OB/Gynecology Comment on above: OB Start: 02-14-2025 End: 02-14-2025 Patient encounter procedure 02/14/2025 8:40 AM EDT Office Visit OB/Gynecology [address] [place] [address] Phillip Castro MD [address] [place] [address] Annual OB/Gynecology Comment on above: Annual Start: 02-09-2025 End: 02-09-2025 Patient encounter procedure 02/09/2025 10:15 AM EDT Routine Office Visit OB/Gynecology [address] [place] [address] Yumiko Andersen APRN.CNM [address] [place] [address] (Fax) OB OB/Gynecology Comment on above: OB Start: 02-02-2025 End: 02-02-2025 Patient encounter procedure 02/02/2025 9:30 AM EDT Office Visit OB/Gynecology [address] [place] [address] Ethel Ruiz APRN.CNM [address] [place] [address] (Fax) OB OB/Gynecology Comment on above: OB Start: 01-31-2025 Influenza vaccination [facility] Start: 01-31-2025 RSV Vaccine (1 - Ris k 1-dose series) RSV Vaccine (1 - Risk 1-dose series) [facility] Start: 01-05-2025 End: 01-05-2025 Patient encounter procedure 01/05/2025 8:30 AM EDT Routine Office Visit OB/Gynecology [address] [place] [address] Karoline Bautista MD [address] [place] [address] (Fax) OB OB/Gynecology Comment on above: OB Start: 12-22-2024 End: 12-22-2024 Patient encounter procedure 12/22/2024 8:00 AM EDT Routine Office Visit OB/Gynecology [address] [place] [address] Yumiko Andersen APRN.CNM [address] [place] [address] OB OB/Gynecology Comment on above: OB Start: 12-08-2024 End: 12-08-2024 ambulatory 12/08/2024 9:30 AM EDT Results Only Heather Schneider [facility] [address] [place] [address] [place] [facility] Start: 12-08-2024 End: 12-08-2024 Patient encounter procedure OB/Gynecology Comment on above: OB OB- FMLA paperwork i n chart prep binder Start: 11-29-2024 Influenza vaccination Influenza Vacc ine (#1) [facility] Comment on above: Postponed from 01/31 (Declined at this time) Start: 11-10-2024 End: 02-09-2025 ANEMIA REFLEX PANEL ANEMIA REFLEX PANEL Lab Routine Encounter for supervision of other normal in second trimester (HCC) 24 weeks gestation of ([facility]) Expected: 11/10/2024, Expires: 02/09/2025 [facility] Comment on above: Expected: 11/10/2024 , Expires: 02/09/2025 Start: 11-10-2024 End: 11-10-2025 GESTATIONAL GLUCOSE SCREEN, 1-HOUR, 50 GRAM, NON-FASTING GESTATIONAL GLUCOSE SCREEN, 1-HOUR, 50 GRAM, NON-FASTING Lab Routine Encounter for supervision of other normal in second trimester (HCC) 24 weeks gestation of ([facility]) Screening for diabetes mellitus Expected: 11/10/2024, Expires: 11/10/[address] [facility] Work Phone: Comment on above: Expected: 11/10/2024 , Expires: 11/10/2025 Start: 11-10-2024 End: 11-10-2025 SYPHILIS TREPONEMAL W/REFLEX SYPHILIS TREPONEMAL W/REFLEX Lab Routine Encounter for supervision of other normal in second trimester (HCC) 24 weeks gestation of ([facility]) Expected: 11/10/2024, Expires: 11/10/2025 [facility] Comment on above: Expected: 11/10/2024 , Expires: 11/10/2025 Start: 11-10-2024 End: 02-09-2025 Thyrotropin [Units/volume] in Serum or Plasma THYROID STIMULATING HORMONE Lab Routine History of hypothyroidism Expected: 11/10/2024, Expires: 02/09/2025 [facility] Comment on above: Expected: 11/10/2024 , Expires: 02/09/2025 Start: 11-10-2024 End: 02-09-2025 Thyroxine (T4) free [Mass/volume] in Serum or Plasma T4 FREE/FREE THYROXINE Lab Routine History of hypothyroidism Expected: 11/10/2024, Expires: 02/09/2025 [facility] Comment on above: Expected: 11/10/2024 , Expires: 02/09/2025 Start: 11-10-2024 End: 11-10-2024 Patient encounter procedure 11/10/2024 9:00 AM EDT Routine Office Visit OB/Gynecology [address] [place] [address] Jenny Huitron APRN.SEWING MACHINE ADJUSTER [address] [place] [address] OB OB/Gynecology Comment on above: OB Start: 10-13-2024 End: 10-13-2024 Patient encounter procedure [facility]aternal [facility] Comment on above: Anatomy OB Start: 10-12-2024 End: 10-12-2024 Patient encounter procedure Maternal Medicine Comment on above: Anatomy Anatomy/OB Start: 09-20-2024 End: 09-20-2024 Patient encounter procedure 09/20/2024 8:30 AM EDT Routine Office Visit OB/Gynecology [address] [place] [address] Karoline Bautista MD [address] [place] [address] OB OB/Gynecology Comment on above: OB Start: 09-14-2024 End: 09-14-2024 Patient encounter procedure 09/14/2024 8:30 AM EDT Routine Office Visit OB/Gynecology [address] [place] [address] Karoline Bautista MD [address] [place] [address] OB OB/Gynecology Comment on above: OB Start: 08-17-2024 End: 08-17-2024 Patient encounter procedure 08/17/2024 2:30 PM EDT Routine Office Visit OB/Gynecology [address] [place] [address] Ethel Ruiz APRN.CN [address] [place] [address] Nuchal/OBLmp05/27/24 OB/Gynecology Comment on above: Nuchal/OBLmp05/27/24 Start: 08-17-2024 End: 08-17-2024 Patient encounter procedure [facility] [place] Comment on above: est care PHYSICAL Nuchal Start: 08-09-2024 End: 08-09-2024 Patient encounter procedure 08/09/2024 1:10 PM EDT Routine Office Visit OB/Gynecology [address] [place] [address] Phillip Castro MD [address] [place] [address] New OB Lmp107/28/23 OB/Gynecology Comment on above: New OB Lmp107/28/23 Start: 07-20-2024 End: 10-19-2024 ANEMIA REFLEX PANEL ANEMIA REFLEX PANEL Lab Routine with uncertain dates, antepartum 8 weeks gestation of Screen for STD (sexually transmitted disease) Expected: 07/20/2024, Expires: 10/19/[address] [facility] Work Phone: Comment on above: Expected: 07/20/2024 , Expires: 10/19/2024 Start: 07-20-2024 End: 10-19-2024 Hemoglobin A1c in Blood HEMOGLOBIN A1C Lab Routine with uncertain dates, antepartum 8 weeks gestation of Screen for STD (sexually transmitted disease) Expected: 07/20/2024, Expires: 10/19/2024 [facility] Comment on above: Expected: 07/20/2024 , Expires: 10/19/2024 Start: 07-20-2024 End: 10-19-2024 Hepatitis B virus surface Ag [Presence] in Serum HEPATITIS B SURFACE ANTIGEN Lab Routine with uncertain dates, antepartum 8 weeks gestation of Screen for STD (sexually transmitted disease) Expected: 07/20/2024, Expires: 10/19/2024 [facility] Comment on above: Expected: 07/20/2024 , Expires: 10/19/2024 Start: 07-20-2024 End: 10-19-2024 Hepatitis C virus Ab [Presence] in Serum HEPATITIS C ANTIBODY IA WITH CONFIRMATION Lab Routine with uncertain dates, antepartum 8 weeks gestation of Screen for STD (sexually transmitted disease) Expected: 07/20/2024, Expires: 10/19/2024 [facility] Comment on above: Expected: 07/20/2024 , Expires: 10/19/2024 Start: 07-20-2024 End: 10-19-2024 HIV 1+2 Ab [Presence] in Serum or Plasma by Immunoassay HIV 1/2 COMBO WITH REFLEX TO DIFFERENTIATION Lab Routine with uncertain dates, antepartum 8 weeks gestation of Screen for STD (sexually transmitted disease) Expected: 07/20/2024, Expires: 10/19/2024 [facility] Comment on above: Expected: 07/20/2024 , Expires: 10/19/2024 Start: 07-20-2024 End: 07-20-2025 OBSTETRIC ULTRASOUND WHI OBSTETRIC ULTRASOUND WHI Anc Imaging Routine with uncertain dates, antepartum 8 weeks gestation of Screen for STD (sexually transmitted disease) Expected: 07/20/2024, Expires: 07/20/2025 [facility] Comment on above: Expected: 07/20/2024 , Expires: 07/20/2025 Start: 07-20-2024 End: 10-19-2024 RUBELLA IGG ANTIBODY RUBELLA IGG ANTIBODY Lab Routine with uncertain dates, antepartum 8 weeks gestation of Screen for STD (sexually transmitted disease) Expected: 07/20/2024, Expires: 10/19/2024 [facility] Comment on above: Expected: 07/20/2024 , Expires: 10/19/2024 Start: 07-20-2024 End: 10-19-2024 SYPHILIS TREPONEMAL W/REFLEX SYPHILIS TREPONEMAL W/REFLEX Lab Routine with uncertain dates, antepartum 8 weeks gestation of Screen for STD (sexually transmitted disease) Expected: 07/20/2024, Expires: 10/19/2024 [facility] Comment on above: Expected: 07/20/2024 , Expires: 10/19/2024 Start: 07-20-2024 End: 10-19-2024 Thyrotropin [Units/volume] in Serum or Plasma THYROID STIMULATING HORMONE Lab Routine 8 weeks gestation of Expected: 07/20/2024, Expires: 10/19/2024 [facility] Comment on above: Expected: 07/20/2024 , Expires: 10/19/2024 Start: 07-20-2024 End: 10-19-2024 TYPE + SCREEN TYPE + SCREEN Blood Bank Routine with uncertain dates, antepartum 8 weeks gestation of Screen for STD (sexually transmitted disease) Expected: 07/20/2024, Expires: 10/19/2024 [facility] Comment on above: Expected: 07/20/2024 , Expires: 10/19/2024 Start: 07-20-2024 End: 07-20-2024 Patient encounter procedure 07/20/2024 8:15 AM EST Initial Office Visit OB/Gynecology [address] [place] [address] Marielle Jiménez APRN.SEWING MACHINE ADJUSTER [address] [place] [address] New OB [facility]07/28/23 OB/Gynecology Comment on above: New OB Lmp107/[id number] Start: 07-12-2024 End: 10-11-2024 Thyrotropin [Units/volume] in Serum or Plasma [facility] Work Phone: Comment on above: Expected: 07/12/2024 , Expires: 10/11/2024 Start: 07-12-2024 End: 10-11-2024 Thyroxine (T4) free [Mass/volume] in Serum or Plasma [facility] Comment on above: Expected: 07/12/2024 , Expires: 10/11/2024 Start: 02-01-2024 Covid-19 Vaccine ( season) Covid-19 Vaccine () [facility] Start: 02-01-2024 COVID-19 Vaccine () COVID-19 Vaccine () [facility] Start: 02-01-2024 Influenza vaccination Influenza Vacc ine (#1) [facility] Start: 01-31-2023 Influenza vaccination C [facility] Start: 09-19-2022 End: 11-19-2022 CBC W Auto Differential panel - Blood CBC + DIFF Lab Routine 26 weeks gestation of Encounter for supervision of other normal in second trimester Expected: 09/19/2022 (Approximate), Expires: 11/19/[address] [facility] Work Phone: Comment on above: Expected: 09/19/2022 (Approximate), Expires: 11/19/2022 Start: 09-19-2022 End: 11-19-2022 GEST GLUC SCREEN, 1-HR, 50 GM, NON-FASTING GEST GLUC SCREEN, 1-HR, 50 GM, NON-FASTING Lab Routine 26 weeks gestation of Encounter for supervision of other normal in second trimester Expected: 09/19/2022 (Approximate), Expires: 11/19/[address] [facility] Work Phone: Comment on above: Expected: 09/19/2022 (Approximate), Expires: 11/19/2022 Start: 09-19-2022 End: 11-19-2022 SYPHILIS TOTAL W/REFLEX SYPHILIS TOTAL W/REFLEX Lab Routine 26 weeks gestation of Encounter for supervision of other normal in second trimester Expected: 09/19/2022 (Approximate), Expires: 11/19/[address] [facility] Work Phone: Comment on above: Expected: 09/19/2022 (Approximate), Expires: 11/19/2022 Start: 08-28-[address] [facility] Start: 2022 HPV TESTING HPV TESTING [facility] Start: 06-07-2022 End: 06-07-2023 OBSTETRIC ULTRASOUND WHI OBSTETRIC ULTRASOUND WHI Anc Imaging Routine Encounter for supervision of other normal in first trimester Expected: 06/07/2022, Expires: 06/07/[address] [facility] Work Phone: Comment on above: Expected: 06/07/2022 , Expires: 06/07/2023 Start: 06-07-2022 End: 08-07-2022 Thyroxine (T4) free [Mass/volume] in Serum or Plasma [facility] Work Phone: Comment on above: Expected: 06/07/2022 , Expires: 08/07/2022 Start: 06-02-2022 DEPRESSION ASSESSMENT DEPRESSION ASS ESSMENT [facility] Start: 05-10-2022 End: 07-10-2022 CBC panel - Blood by Automated count CBC Lab Routine Encounter for supervision of other normal in first trimester 9 weeks gestation of Expected: 05/10/2022, Expires: 07/10/[address] [facility] Work Phone: Comment on above: Expected: 05/10/2022 , Expires: 07/10/2022 Start: 05-10-2022 End: 07-10-2022 Hepatitis B virus surface Ag [Presence] in Serum HEP B SURF AG SCRN Lab Routine Encounter for supervision of other normal in first trimester 9 weeks gestation of Expected: 05/10/2022, Expires: 07/10/[address] [facility] Work Phone: Comment on above: Expected: 05/10/2022 , Expires: 07/10/2022 Start: 05-10-2022 End: 07-10-2022 Hepatitis C virus Ab [Presence] in Serum HEP C AB IA W/CONF SCRN Lab Routine Encounter for supervision of other normal in first trimester 9 weeks gestation of Expected: 05/10/2022, Expires: 07/10/[address] [facility] Work Phone: Comment on above: Expected: 05/10/2022 , Expires: 07/10/2022 Start: 05-10-2022 End: 07-10-2022 HIV 1+2 Ab [Presence] in Serum or Plasma by Immunoassay HIV 1 2 COMBO(AG/AB),WITH REFLEX TO DIFFERENTIATION Lab Routine Encounter for supervision of other normal in first trimester 9 weeks gestation of Expected: 05/10/2022, Expires: 07/10/[address] [facility] Work Phone: Comment on above: Expected: 05/10/2022 , Expires: 07/10/2022 Start: 05-10-2022 End: 07-10-2022 RUBELLA IGG AB RUBELLA IGG AB Lab Routine Encounter for supervision of other normal in first trimester 9 weeks gestation of Expected: 05/10/2022, Expires: 07/10/[address] [facility] Work Phone: Comment on above: Expected: 05/10/2022 , Expires: 07/10/2022 Start: 05-10-2022 End: 07-10-2022 SYPHILIS TOTAL W/REFLEX SYPHILIS TOTAL W/REFLEX Lab Routine Encounter for supervision of other normal in first trimester 9 weeks gestation of Expected: 05/10/2022, Expires: 07/10/[address] [facility] Work Phone: Comment on above: Expected: 05/10/2022 , Expires: 07/10/2022 Start: 05-10-2022 End: 07-10-2022 Thyrotropin [Units/volume] in Serum or Plasma TSH BLD Lab Routine Encounter for supervision of other normal in first trimester 9 weeks gestation of Expected: 05/10/2022, Expires: 07/10/[address] [facility] Work Phone: Comment on above: Expected: 05/10/2022 , Expires: 07/10/2022 Start: 05-10-2022 End: 07-10-2022 TYPE + SCREEN TYPE + SCREEN Blood Bank Routine Encounter for supervision of other normal in first trimester 9 weeks gestation of Expected: 05/10/2022, Expires: 07/10/[address] [facility] Work Phone: Comment on above: Expected: 05/10/2022 , Expires: 07/10/2022 Start: 01-31-2022 Influenza vaccination INFLUENZA (#1) [facility] Start: 11-30-2021 POV, Provider: Alia Donahue, Status: Pen, Time: 3:00 PM POV, Provider: Alia Donahue, Status: Pen, Time: 3:00 PM [facility] Work Phone: Start: 11-30-2021 VIRFUVHOME, Provider : Alia Donahue, Status: Pen, Time: 3:00 PM VIRFUVHOME, Provider: Alia Donahue, Status: Pen, Time: 3:00 PM [facility] Work Phone: Start: 11-28-2021 NPV, Provider: Ramona Morse, Status: Pen, Time: 7:40 AM NPV, Provider: Ramona Morse, Status: Pen, Time: 7:40 AM [facility] Work Phone: Start: 11-06-2021 SURGGRH, Provider: Alfredo Bowden, Status: Pen, Time: 7:30 AM SURGGRH, Provider: Alfredo Bowden, Status: Pen, Time: 7:30 AM [facility] Work Phone: Start: 07-27-2021 NPV, Provider: Alfredo Bowden, Status: Pen, Time: 8:40 AM NPV, Provider: Alfredo Bowden, Status: Pen, Time: 8:40 AM [facility] Work Phone: Start: 06-02-2021 DEPRESSION ASSESSMENT DEPRESSION ASS ESSMENT [facility] Start: 03-07-2021 FUV, Provider: Frida Lieberman, Status: Pen, Time: 3:20 PM FUV, Provider: Frida Lieberman, Status: Pen, Time: 3:20 PM [facility] Work Phone: Start: 10-06-2020 PAP TESTING PAP TESTING [facility] Start: 2019 HPV Vaccine (1 - 3-d ose SCDM series) HPV Vaccine (1 - 3-dose SCDM series) [facility] Start: 2014 DTaP/Tdap/Td Vaccine s (1 - Tdap) DTaP/Tdap/Td Vaccines (1 - Tdap) [facility] Start: 2013 Screening for malign ant neoplasm of cervix HPV/Cotest [facility] Start: 2011 Hepatitis B Vaccine (1 of 3 - 19+ 3-dose series) Hepatitis B Vaccine (1 of 3 - 19+ 3-dose series) [facility] Start: 2011 Hepatitis B Vaccines (1 of 3 - 19+ 3-dose series) Hepatitis B Vaccines (1 of 3 - 19+ 3-dose series) [facility] Start: 2011 Urine microalbumin profile DTAP,TDAP,TD (1 - Tdap) [facility] Start: 2010 Anxiety Screening Anxiety Screening [facility] Start: 2010 [facility]: 2010 HEPATITIS C SCREENING HEPATITIS C [facility] Start: 2010 Hepatitis C screening Hepatitis C [facility] Start: 2010 HIV SCREENING HIV SCREENING [facility] Start: 2005 Varicella vaccination Varicell a Vaccines (1 of 2 - 13+ 2-dose series) [facility] Start: 1993 MMR Vaccines (1 of 1 - Standard series) MMR Vaccines (1 of 1 - Standard series) [facility] Start: 1992 COVID-19 VACCINE (#1) COVID-19 VACCI NE (#1) [facility] Start: 1992 HEPATITIS B (1 of 3 - 3-dose series) HEPATITIS B (1 of 3 - 3-dose series) [facility] Start: 1992 Yearly Adult Physical Yearly Adult P [facility] Bacteria identified in Urine by Culture Urine Culture [facility] Bacteria identified in Urine by Culture BACTERIAL CULTURE, URINE Microbiology Routine with uncertain dates, antepartum 8 weeks gestation of Screen for STD (sexually transmitted disease) 07/20/2024 10:17 AM EST [facility] Chlamydia trachomatis+Neisseria gonorrhoeae DNA [Presence] in Unspecified specimen by TRISH with probe detection GONORRHEA/CHLAMYDIA NAAT Lab Routine with uncertain dates, antepartum 8 weeks gestation of Screen for STD (sexually transmitted disease) 07/20/2024 10:17 AM [facility] PAP FLUID CERVICAL SCREENING PAP FLUID CERVICAL SCREENING Lab Routine Encounter for screening for malignant neoplasm of cervix Ordered: 04/01/[address] [facility] Work Phone: Comment on above: Ordered: 04/01/2022 PAP TEST PAP TEST Lab Rou binta Screening for cervical cancer 07/20/2024 10:17 AM [facility] Patient Education ED Diet Vomiti ng Diarrhea ED Vomiting and Diarrhea ... [facility] Work Phone: Patient referral [facility] Work Phone: ROUTINE, GR OUP B STREP PCR ROUTINE, GROUP B STREP PCR Microbiology Routine 36 weeks gestation of 11/19/2022 8:34 AM [facility] Work Phone: ROUTINE, GR OUP B STREPTOCOCCUS BY PCR ROUTINE, GROUP B STREPTOCOCCUS BY PCR Microbiology Routine 36 weeks gestation of (HCC) Encounter for supervision of other normal in third trimester (HCC) 02/02/2025 9:39 AM [facility] Work Phone: TRICHOMONAS VAGINALI S NAAT TRICHOMONAS VAGINALIS NAAT Lab Routine Screen for STD (sexually transmitted disease) 07/20/2024 10:17 AM [facility] Immunizations Immunization Date Immunization Notes Care Provider Fa sarah 09-20-2022 tetanus toxoid, redu lisa diphtheria toxoid, and acellular pertussis vaccine, adsorbed Brijesh Biswas MD Work Phone: [facility] 03-28-2020 tetanus toxoid, redu lisa diphtheria toxoid, and acellular pertussis vaccine, adsorbed Ana Boateng Work Phone: [facility] Payers Date Payer Category Payer Self-pay [id number] 2023 Managed Care (Private) [facility] [id number] 2021 Medicaid [id number] 2021 Private Health Insurance [id number] 2017 Private Health Insurance 1992 Unknown [id number] 1992 Unknown [id number] 1992 Unknown [id number] Private Health Insurance [facility] [id number] Unknown [facility] Unknown MAI/Aide WILLIS [id number] Unknown [id number] Social History Date Type Detail Facility Start: 06-11-2020 End: 04-01-2022 Denies Ever Smoked [facility] Start: 11-30-2019 End: 10-03-2022 Non-smoker Non-smoker [facility] Start: 04-01-2022 End: 03-29-2024 Tobacco use and exposure Smokeless tobacco non-user [facility] Start: 04-01-2022 End: 02-16-2025 Alcohol intake Lifetime non-drinker (finding) [facility] Start: 11-30-2019 History SDOH Alcohol Frequency 1 [facility] Start: 1990 Sex Assigned At Not on file [facility] Start: 03-22-2022 End: 03-29-2024 Exposure to SARS-CoV-2 (event) Not sure [facility] Start: 05-02-2022 Education 17 [facility] Start: 03-20-[address] [facility] Start: 08-28-2022 Tobacco smoking stat [facility] Unknown if ever smoked [facility] Start: 1990 Sex Assigned At Female [facility] Start: 11-30-2019 End: 10-03-2022 Alcohol Use Disorder Identification Test - Consumption [AUDIT-C] [facility] How often to you hav e a drink containing alcohol? Never [facility] Start: 08-21-2017 Average Number of Drinks Not on file [facility] Work Phone: Start: 03-29-2024 Alcoholic beverage intake Current drinker of alcohol (finding) [facility] Work Phone: Start: 07-19-2024 Gender identity Identifies as female gender (finding) [facility] Start: 07-19-2024 Sexual orientation Heterosexua l (finding) [facility] Do you belong to any clubs or organizations such as amish groups, unions, fraternal or athletic groups, or school groups? No [facility] Are you now , , , , never or living with a partner? [facility] How often to you hav e a drink containing alcohol? Monthly or less [facility] How many standard dr inks containing alcohol do you have on a typical day? 1 or 2 [facility] Do you feel stress - tense, restless, nervous, or anxious, or unable to sleep at night because your mind is troubled all the time - these days [OSQ] Not at all [facility] (I/We) worried marcelino er (my/our) food would run out before (I/we) got money to buy more. Never true [facility] NEGATED: Highlighted rowStart: AIXA History of tobacco use Passive smoker [facility] Work Phone: Goals Date Patient Goal Desired Activity /State Personal health goal Personal health goal Functional Status Date Assessment Result Facility 08-10-2024 Total score [AUDIT-C] 1 08/11/19 7:07 PM EDT User, Mycrosannat [facility] 08-10-2024 Within the last year , have you been humiliated or emotionally abused in other ways by your partner or ex-partner? No 08/10/2024 7:07 PM EDT User, Mychart No [facility] 08-10-2024 Within the last year , have you been afraid of your partner or ex-partner? No 08/10/2024 7:07 PM EDT [facility], [email or web address] 08-10-2024 Within the last year , have you been raped or forced to have any kind of sexual activity by your partner or ex-partner? No 08/10/2024 7:07 PM EDT User, Mychart No [facility] 08-10-2024 Within the last year , have you been kicked, hit, slapped, or otherwise physically hurt by your partner or ex-partner? No 08/10/2024 7:07 PM EDT User, Mychart No [facility] 08-10-2024 How often to you hav e a drink containing alcohol? Monthly or less 08/10/2024 7:07 PM EDT User, Mycrosannat Monthly or less [facility] 08-10-[address] inks containing alcohol do you have on a typical day? 1 or 2 08/10/2024 7:07 PM EDT User, Mycrosannat 1 or 2 [facility] 08-10-2024 How often do you hav e 6 or more drinks on 1 occasion? Never 08/10/2024 7:07 PM EDT User, Yarelist Never [facility] 12-01-2019 Are you deaf, or do you have serious difficulty hearing No 12/01/2019 5:12 AM EDT Cindi Kumar, GENARO No [facility] 12-01-2019 Are you blind, or do you have serious difficulty seeing, even when wearing glasses No 12/01/2019 5:12 AM EDT Cindi Kumar RN No [facility] 12-01-2019 Do you have serious difficulty walking or climbing stairs No 12/01/2019 5:12 AM EDT Cindi Kumar RN No [facility] 12-01-2019 Do you have difficul ty dressing or bathing No 12/01/2019 5:12 AM EDT Cindi Kumar RN No [facility] 12-01-2019 Because of a physica l, mental, or emotional condition, do you have difficulty doing errands alone such as visiting a physician's office or shopping No 12/01/2019 5:12 AM EDT Cindi Kumar RN No [facility] Mental Status Date Assessment Result Facility 12-01-2019 Because of a physica l, mental, or emotional condition, do you have serious difficulty concentrating, remembering, or making decisions No 12/01/2019 5:12 AM EDT Cindi Kumar RN No [facility] Clinical Notes 12-01-2019 to 02-16-2025 Quick Notes - Ana Hilario MD - 02/16/2025 9:13 AM EDTPrenatal Quick Notes - Ana Hilario MD - 02/16/2025 9:13 AM EDTPatient Tate Chamorro - 02/10/2025 7:07 AM EDT Note Date & Type Note Facility 02-16-2025 Progress note Formatting of t his note might be different from the original. S: Ramona Wahl is a 34 year old female who presents at 02/24/2025, by Last Menstrual Period for a routine visit. Denies headache, visual changes, chest pain, shortness of breath, vaginal bleeding, leakage of fluid, or dysuria. Feeling well, no complaints. Good movement, No contractions O: See flow sheet Gen: No apparent distress Abd: Gravid, nontender Would rather not be induced ASSESSMENT/PLAN: 1. Encounter for supervision of other normal in third trimester (HCC) - ICD9: V22.1, ICD10: Z34.83 (primary diagnosis) - URINE OB DIP B/O 2. History of hypothyroidism - ICD9: V12.29, ICD10: Z86.39 Labs completed - URINE OB DIP B/O 3. 38 weeks gestation of (HCC) - ICD9: V22.2, ICD10: Z3A.38 - URINE OB DIP B/O Ana Hilario MD [facility] 02-16-2025 Miscellaneous Notes Formattin g of this note might be different from the original. S: Ramona Wahl is a 34 year old female who presents at 02/24/2025, by Last Menstrual Period for a routine visit. Denies headache, visual changes, chest pain, shortness of breath, vaginal bleeding, leakage of fluid, or dysuria. Feeling well, no complaints. Good movement, No contractions O: See flow sheet Gen: No apparent distress Abd: Gravid, nontender Would rather not be induced ASSESSMENT/PLAN: 1. Encounter for supervision of other normal in third trimester (HCC) - ICD9: V22.1, ICD10: Z34.83 (primary diagnosis) - URINE OB DIP B/O 2. History of hypothyroidism - ICD9: V12.29, ICD10: Z86.39 Labs completed - URINE OB DIP B/O 3. 38 weeks gestation of (HCC) - ICD9: V22.2, ICD10: Z3A.38 - URINE OB DIP B/O Ana Hilario MD documented in this encounter [facility] 02-16-2025 Instructions Cecelia Pardo MA - 02/16/2025 8:18 AM EDT SEQUENTIAL SCREENINGS The [facility] offers sequential screenings for women who are interested in screenings for chromosomal abnormalities and certain defects during a . The sequential screen combines ultrasound and blood tests to determine the risk of chromosomal abnormalities, including Down's Syndrome (Trisomy 21) and Trisomy 18, as well as open neural tube defects including spina bifida. Ultrasound examination is performed between 11 weeks and 13 weeks gestational age. Blood tests are drawn after the ultrasound and again later in the between 15 and 21 weeks gestational age. Please let your physician know if you are interested in this testing. It will require an appointment with our quality systems technician. This is not an ultrasound performed by a physician in our office during a routine visit. SIGNS AND SYMPTOMS OF LABOR 1. Contractions every 10 minutes or more often 2. Clear, pink, or brownish fluid (water) leaking from vagina 3. Feeling that baby is pushing down, pressure 4. Low, dull backache 5. Cramps that feel like a period 6. Cramps with or without diarrhea If you notice any of the above symptoms, contact our office at [phone] and ask to speak with a nurse. After hours, you can call doctors registry at [phone] OR call [facility] at [phone] and ask to have the doctor deckhand sponge boat paged. If you consider this an emergency, dial 9-2-1 or go to your nearest emergency department. NEED HELP? Are you dealing with a violent or abusive relationship? Are you a victim of rape or sexual assult? Call [facility] ([place]) 24 hour Crisis Hotline: 957.298.6469 or 257-584-6352. MANUAL Your Guide to a Healthy manual is now on-line. Visit [email or web address] [email or web address] to download your free copy documented in this encounter [facility] 02-10-2025 Note HNO ID: [id number] Author: TATE GARNER, ? Service: ? Author Type: Patient Guest Relations Representative Type: Progress Notes Filed: 02/10/2025 07:09 Note Text: POPULATION HEALTH NAVIGATION OUTREACH Action/FYI No outreach done added green end department supervisor via note Reason for Outreach Medicaid OB/Peds Care Gaps due: N/A Patient Contacted: Unable or unnecessary to reach patient: [place] green end department supervisor added Navigation Signature: Tate Garner Population Health Navigator February 10, 2025 7:08 AM [facility] 02-10-2025 History of Presen t illness Narrative POPULATION HEALTH NAVIGATION OUTREACH Action/FYI No outreach done added green end department supervisor via note Reason for Outreach Medicaid OB/Peds Care Gaps due: N/A Patient Contacted: Unable or unnecessary to reach patient: green end department supervisor added Navigation Signature: Tate Garner Population Health Navigator February 10, 2025 7:08 AM documented in this encounter [facility] 02-10-2025 Note Patient Outreach (NE TNAV) RAMONA WAHL ([id number]) 1990 F Date Time Provider Department 02/10/25 TATE GARNER NETECFERINOV During your visit today, we recorded the following information about you: Tate Garner 02/10/2025 7:09 AM Signed POPULATION HEALTH NAVIGATION OUTREACH / No outreach done added green end department supervisor via note Reason for Outreach Medicaid OB/Peds Care Gaps due: N/A Patient Contacted: Unable or unnecessary to reach patient: [place] green end department supervisor added Navigation Signature: Tate Garner Population AppRedeem Navigator February 10, 2025 7:08 AM Allergies As of Date: 02/10/2025 (No Known Allergies) Date Reviewed: 02/09/2025 Reviewed by: Kaylie Benz LPN - Fully Assessed Reason for Visit: Population Health Navigation Outreach [3910] Cmt: to PCP/OB Prescriptions as of 02/10/2025 - vit,thor 74/iron/folic ( VITAMIN 1+1 ORAL) Take 1 tablet by mouth once daily. Problem List As Of Date 02/10/2025 Noted Resolved Nausea and vomiting during [O21.9] 12/01/2019 07/19/2022 Supervision of with history of infert*05/02/2022 08/17/2024 History of anxiety [Z86.59] 05/02/2022 History of hypothyroidism [Z86.39] 05/02/2022 Encounter for supervision of normal intrauterin*07/20/2024 Hypothyroidism [E03.9] 07/20/2024 07/20/2024 Hyperemesis of (HCC) [O21.0] 07/20/2024 10/13/2024 Low TSH level [R79.89] 12/13/2024 Bilateral hip pain [M25.551, M25.552] 12/22/2024 Encounter Status:Closed by TATE GARNER on 02/10/25 [facility] 02-09-2025 Progress note Formatting of t his note might be different from the original. S: Ramona Whal is a 34 year old female who presents at 37 weeks gestation for a routine visit. Positive movements. Occasional tony louis. Denies headache, visual changes, chest pain, shortness of breath, vaginal bleeding, leakage of fluid, or dysuria. Feeling well, no complaints. O: See flow sheet Gen: No apparent distress Abd: Gravid, non tender ASSESSMENT/PLAN: 1. 37 weeks gestation of 2. History of hypothyroidism 3. Encounter for supervision of other normal in third trimester - Thyroid levels normal 02/02/25 - URINE OB DIP B/O - Labor precautions and timing of contractions reviewed - RTO 1 week or sooner if needed Yumiko Andersen APRN.CNM [facility] 02-09-2025 Miscellaneous Notes Formattin g of this note might be different from the original. S: Ramona Wahl is a 34 year old female who presents at 37 weeks gestation for a routine visit. Positive movements. Occasional tony louis. Denies headache, visual changes, chest pain, shortness of breath, vaginal bleeding, leakage of fluid, or dysuria. Feeling well, no complaints. O: See flow sheet Gen: No apparent distress Abd: Gravid, non tender ASSESSMENT/PLAN: 1. 37 weeks gestation of 2. History of hypothyroidism 3. Encounter for supervision of other normal in third trimester - Thyroid levels normal 02/02/25 - URINE OB DIP B/O - Labor precautions and timing of contractions reviewed - RTO 1 week or sooner if needed Yumiko Andersen APRN.CNM documented in this encounter [facility] 02-09-2025 Instructions Kaylie Benz LPN - 02/09/2025 10:12 AM EDT SEQUENTIAL SCREENINGS The [facility] offers sequential screenings for women who are interested in screenings for chromosomal abnormalities and certain defects during a . The sequential screen combines ultrasound and blood tests to determine the risk of chromosomal abnormalities, including Down's Syndrome (Trisomy 21) and Trisomy 18, as well as open neural tube defects including spina bifida. Ultrasound examination is performed between 11 weeks and 13 weeks gestational age. Blood tests are drawn after the ultrasound and again later in the between 15 and 21 weeks gestational age. Please let your physician know if you are interested in this testing. It will require an appointment with our quality systems technician. This is not an ultrasound performed by a physician in our office during a routine visit. SIGNS AND SYMPTOMS OF LABOR 1. Contractions every 10 minutes or more often 2. Clear, pink, or brownish fluid (water) leaking from vagina 3. Feeling that baby is pushing down, pressure 4. Low, dull backache 5. Cramps that feel like a period 6. Cramps with or without diarrhea If you notice any of the above symptoms, contact our office at [phone] and ask to speak with a nurse. After hours, you can call doctors registry at [phone] OR call [facility] at [phone] and ask to have the doctor deckhand sponge boat paged. If you consider this an emergency, dial 9-1-3 or go to your nearest emergency department. NEED HELP? Are you dealing with a violent or abusive relationship? Are you a victim of rape or sexual assult? Call [facility] ([place]) 24 hour Crisis Hotline: 120.975.5533 or 438-680-4773. MANUAL Your Guide to a Healthy manual is now on-line. Visit [email or web address] [email or web address] to download your free copy documented in this encounter [facility] 02-02-2025 Progress note Formatting of t his note might be different from the original. JAIR-S: Ramona Wahl is a 34 year old female who presents at 02/24/2025, by Last Menstrual Period for a routine visit. Denies headache, visual changes, chest pain, shortness of breath, vaginal bleeding, leakage of fluid, or dysuria. Feeling well, no complaints. O: See flow sheet Gen: No apparent distress Abd: Gravid, nontender GBS testing today Limited bedside US confirms cephalic presentation, confirming. Participation of a fellow, resident, medical student, or advanced practice provider student in performing the sensitive examination was discussed with the patient or authorized development representative. The patient or authorized development representative has agreed to proceed with the sensitive examination. ASSESSMENT/PLAN: 1. Encounter for supervision of other normal in third trimester -Continue PNV 2. 36 weeks gestation of 3. History of hypothyroidism - THYROID STIMULATING HORMONE - T4 FREE/FREE THYROXINE PTL precautions reviewed RTO in one week Ethel Ruiz APRN.CNM [facility] 02-02-2025 Miscellaneous Notes Formattin g of this note might be different from the original. JAIR-S: Ramona Wahl is a 34 year old female who presents at 02/24/2025, by Last Menstrual Period for a routine visit. Denies headache, visual changes, chest pain, shortness of breath, vaginal bleeding, leakage of fluid, or dysuria. Feeling well, no complaints. O: See flow sheet Gen: No apparent distress Abd: Gravid, nontender GBS testing today Limited bedside US confirms cephalic presentation, confirming. Participation of a fellow, resident, medical student, or advanced practice provider student in performing the sensitive examination was discussed with the patient or authorized development representative. The patient or authorized development representative has agreed to proceed with the sensitive examination. ASSESSMENT/PLAN: 1. Encounter for supervision of other normal in third trimester -Continue PNV 2. 36 weeks gestation of 3. History of hypothyroidism - THYROID STIMULATING HORMONE - T4 FREE/FREE THYROXINE PTL precautions reviewed RTO in one week Ethel Ruiz APRN.CNM documented in this encounter [facility] 02-02-2025 Instructions Ethel Ruiz APRN.MICHELLE - 02/02/2025 9:17 AM EDT Images from the original note were not included. Preparing for labor: Eat dates to promote spontaneous labor! Has an oxytocin-like effect on the body, leading to increased sensitivity of the uterus. Stimulates uterine contractions. Reduces hemorrhage the way oxytocin does. Date fruit contains saturated and unsaturated fatty acids such as oleic, linoleic, and linolenic acids, which are involved in saving and supplying energy and construction of prostaglandins. In addition, serotonin, tannin, and calcium in date fruit contribute to the contraction of smooth muscles of the uterus. Date fruit also has a laxative effect, which stimulates uterine contractions. Six dates per day is the magic number--provided that you re eating smaller deglet noor dates. Deglet noor dates are about 1 inch long. Medjool dates can be up to 2 inches long. If you re eating medjool dates, you only need about 3 dates to reach the 75 grams recommended in the studies. Not sure which type of date you have in your refrigerator? It s probably a deglet noor. How to Eat Dates During Dates are a healthy and delicious snack, so how can you add them to your diet? Add dates during in this awesome oatmeal recipe. Add dates to replace sugar in your favorite recipe or to chino your homemade almond milk. Use dates and nuts to make an easy pie crust in the food service worker. Add soaked dates to homemade nut butter for a sweet treat. Add dates to chino homemade salad dressing. Add dates during easily with these yummy (paleo friendly) bars made from dates. What Is Red Raspberry [place] Tea? Red raspberry leaf tea comes from the leaves of the red raspberry plant. This herbal tea has been used for centuries to support respiratory, digestive and uterine health, particularly during and childbearing years. While usually known as a female herb, red raspberry leaf tea can also help support the prostate and various stomach ailments in children. How It Can Help and Red raspberry leaf tea can help to make labor faster and reduce complications and interventions during . One study found that women who consumed RRL tea regularly are less likely to go overdue or give prematurely. These women may also be less likely to receive an artificial rupture of their membranes or require a section, forceps, or vacuum than the women in the control group. Red raspberry leaf has many other benefits to , , and too. How Much Red Raspberry [place] Tea to Drink? With your doctor or psychologist clinical s approval, start with 1 cup of red raspberry leaf tea per day starting in the second trimester. Watch for any uterine cramping or other reactions. If you don t experience any, you can talk to your healthcare provider about increasing to 2 cups per day. Again, watch for any uterine cramping. If you notice any, cut back on your dosage for two weeks and try again. Keep in mind, some moms have irritable uteruses and can only drink red raspberry leaf tea once they reach their due date because of uterine cramping. Is Red Raspberry [place] Tea the Same as Raspberry [place] Tea? How About Plain Old Raspberry Tea? Sometimes. You really need to look at the ingredients to be sure. Note that there is no difference between red raspberry leaf and raspberry leaf. PressPad or [employer]ociety Raspberry [place] Tea are two good brands. The red raspberry leaf teas that we recommend are 100% red raspberry leaf. Other teas labeled as raspberry are often a blend of rosehips, hibiscus, raspberry leaves, and raspberry flavor. So they may not be as effective. The teas to avoid are raspberry-flavored herbal teas, which may have ingredients like hibiscus, mic hips, apples, elderberries, natural and artificial raspberry flavors. Teas like this don t contain raspberry leaf at all and thus won t offer any of the potential benefits of RRLT outlined in this article. [employer] www.[employer] I named this 'circuit' after my friend Laurence Cesar, who shared and discussed it with me when I was working with a client whose labor seemed to be stalled out and no longer progressing... This circuit is useful to help get the baby lined up, ideally, in the Left Occiput Anterior (ATA) Position, both before labor begins and when some corrections need to be done during labor. Prenatally, this position set can help to rotate a baby. As a natural method of induction, this can help get things going if baby just needed a gentle nudge of position to set things off. To the best of my knowledge, this group of positions will not hurt a baby that is already lined up correctly. - Jacqui Kirk Before you Begin..... This circuit takes at least 90 minutes to complete so clear your schedule and make mental preparations so you can relax in your environment. The second step requires a lot of pillows so gather them up before beginning Before starting, you should empty your bladder! Have a nice drink nearby, and make sure it has a straw! If you are having contractions, this circuit should bedone through contractions, try not to change positions between steps Step One: Open-knee Chest Stay in this position for 30 minutes, start in cat/cow, then drop your chest as low as you can to the bed or the floor and your bottom as high as you can. Knees should be fairly wide apart, and the angle between the torso/thighs should be wider than 90 degrees. Wiggle around, prop with lots of pillows and use this time to get totally relaxed. This position allows the baby to scoot out of the pelvis a bit and gives them room to rotate, shift their head position, etc. If the person finds it helpful,careful positioning with a rebozo under the belly, with gentle tension from a support person behindcan help maintain this position for the full 30minutes. Step Two: Exaggerated Left Side Lying Roll to your left side, bringing your top leg as high as possible and keeping your bottom leg straight. Roll forward as much as possible,again using a lot of pillows. Sink into the bed and relax some more. If you fall asleep, that's totally okay and you can stay there! If not, stay here for at least another half an hour. Try and get your top right leg up towards your head and get as rolled over onto your belly as much as possible. If you repeat the circuit during labor, try alternating left and right sides. We know the photo the left is actually right side... just flip the image in your head. Step Three: Moving and Lunges Lunge, walk stairs facing sideways, 2 at a time, (have a dietary internship downstairs of you!), take a walk outside with one foot on the curb and the other on the street, sit on a ball and hula- anything that's upright and putting your pelvis in open, asymmetrical positions. Spend at least 30 minutes doing this one as well to give your baby a chance to move down. If you are lunging or stair or curb walking, you should lunge/walk/go up stairs in the direction that feels better to you. The sears with the lunge is that the toes of the higher leg and mom's belly button should be at right angles. Do not lunge over your knee, that closes the pelvis. Laurence Cesar: Circuit Creator - www.[employer]. [employer] Jacqui Kirk, CLEMENT, BDT (NAHED), LCCE, FACCE: Supporting Content - www.[employer] Jenny Lin: Photography - www.[employer] Kylah Vidales CD/CDT (JETT): Print and Transfer Engineer - www.[employer] www[employer] SIGNS AND SYMPTOMS OF LABOR 1. Contractions every 10 minutes or more often 2. Clear, pink, or brownish fluid (water) leaking from vagina 3. Feeling that baby is pushing down, pressure 4. Low, dull backache 5. Cramps that feel like a period 6. Cramps with or without diarrhea If you notice any of the above symptoms, contact our office at [phone] and ask to speak with a nurse. After hours, you can call doctors registry at [phone] OR call [facility] at [phone] and ask to have the doctor deckhand sponge boat paged. If you consider this an emergency, dial or go to your nearest emergency department. NEED HELP? Are you dealing with a violent or abusive relationship? Are you a victim of rape or sexual assult? Call [facility] ([place]) 24 hour Crisis Hotline: 924.161.4242 or 892-081-7182. MANUAL Your Guide to a Healthy manual is now on-line. Visit [email or web address]/HealthyPre gnancyGuide to download your free copy documented in this encounter [facility] 01-19-2025 Progress note Formatting of t his note might be different from the original. S: Ramona Wahl is a 34 year old female who presents at 02/24/2025, by Last Menstrual Period for a routine visit. Denies headache, visual changes, chest pain, shortness of breath, vaginal bleeding, leakage of fluid, or dysuria. Feeling well, no complaints. Good movement, No contractions O: See flow sheet Gen: No apparent distress Abd: Gravid, nontender ASSESSMENT/PLAN: 1. 34 weeks gestation of ([facility]) - ICD9: V22.2, ICD10: Z3A.34 (primary diagnosis) - URINE OB DIP B/O 2. Encounter for supervision of other normal in third trimester ([facility]) - ICD9: V22.1, ICD10: Z34.83 - URINE OB DIP B/O 3. History of hypothyroidism - ICD9: V12.29, ICD10: Z86.39 TSH 2.8 - URINE OB DIP B/O Ana Hilario MD [facility] 01-19-2025 Miscellaneous Notes Formattin g of this note might be different from the original. S: Ramona Wahl is a 34 year old female who presents at 02/24/2025, by Last Menstrual Period for a routine visit. Denies headache, visual changes, chest pain, shortness of breath, vaginal bleeding, leakage of fluid, or dysuria. Feeling well, no complaints. Good movement, No contractions O: See flow sheet Gen: No apparent distress Abd: Gravid, nontender ASSESSMENT/PLAN: 1. 34 weeks gestation of ([facility]) - ICD9: V22.2, ICD10: Z3A.34 (primary diagnosis) - URINE OB DIP B/O 2. Encounter for supervision of other normal in third trimester ([facility]) - ICD9: V22.1, ICD10: Z34.83 - URINE OB DIP B/O 3. History of hypothyroidism - ICD9: V12.29, ICD10: Z86.39 TSH 2.8 - URINE OB DIP B/O Ana Hilario MD documented in this encounter [facility] 01-19-2025 Instructions Seema Rose MA - 01/19/2025 10:15 AM EDT SEQUENTIAL SCREENINGS The [facility] offers sequential screenings for women who are interested in screenings for chromosomal abnormalities and certain defects during a . The sequential screen combines ultrasound and blood tests to determine the risk of chromosomal abnormalities, including Down's Syndrome (Trisomy 21) and Trisomy 18, as well as open neural tube defects including spina bifida. Ultrasound examination is performed between 11 weeks and 13 weeks gestational age. Blood tests are drawn after the ultrasound and again later in the between 15 and 21 weeks gestational age. Please let your physician know if you are interested in this testing. It will require an appointment with our quality systems technician. This is not an ultrasound performed by a physician in our office during a routine visit. SIGNS AND SYMPTOMS OF LABOR 1. Contractions every 10 minutes or more often 2. Clear, pink, or brownish fluid (water) leaking from vagina 3. Feeling that baby is pushing down, pressure 4. Low, dull backache 5. Cramps that feel like a period 6. Cramps with or without diarrhea If you notice any of the above symptoms, contact our office at [phone] and ask to speak with a nurse. After hours, you can call doctors registry at [phone] OR call [facility] at [phone] and ask to have the doctor deckhand sponge boat paged. If you consider this an emergency, dial or go to your nearest emergency department. NEED HELP? Are you dealing with a violent or abusive relationship? Are you a victim of rape or sexual assult? Call [facility] ([place]) 24 hour Crisis Hotline: 207.725.6833 or 661-643-0057. MANUAL Your Guide to a Healthy manual is now on-line. Visit [email or web address] to download your free copy documented in this encounter [facility] 12-22-2024 Progress note Formatting of t his note might be different from the original. S: Ramona Wahl is a 34 year old female who presents at 30 weeks gestation for a routine visit. Positive movements. Increased bilateral hip pain. Reports this occurs during . Has tried youth care specialist in the past without relief. Discussed massage therapy and /or finding new chiropractor. Denies headache, visual changes, chest pain, shortness of breath, vaginal bleeding, leakage of fluid, or dysuria. O: See flow sheet Gen: No apparent distress Abd: Gravid, non tender ASSESSMENT/PLAN: 1. 30 weeks gestation of 2. Encounter for supervision of other normal in third trimester 3. Bilateral hip pain Massage therapy foster care case manager Yoga/stretching Continue vitamin daily Opted out of ASA RTO 2 weeks or sooner if needed Yumiko Andersen APRN.CNM [facility] 12-22-2024 Miscellaneous Notes Formattin g of this note might be different from the original. S: Ramona Wahl is a 34 year old female who presents at 30 weeks gestation for a routine visit. Positive movements. Increased bilateral hip pain. Reports this occurs during . Has tried youth care specialist in the past without relief. Discussed massage therapy and /or finding new chiropractor. Denies headache, visual changes, chest pain, shortness of breath, vaginal bleeding, leakage of fluid, or dysuria. O: See flow sheet Gen: No apparent distress Abd: Gravid, non tender ASSESSMENT/PLAN: 1. 30 weeks gestation of 2. Encounter for supervision of other normal in third trimester 3. 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 The sequential screen combines ultrasound and blood tests to determine the risk of chromosomal abnormalities, including Down's Syndrome (Trisomy 21) and Trisomy 18, as well as open neural tube defects including spina bifida. Ultrasound examination is performed between 11 weeks and 13 weeks gestational age. Blood tests are drawn after the ultrasound and again later in the between 15 and 21 weeks gestational age. Please let your physician know if you are interested in this testing. It will require an appointment with our quality systems technician. This is not an ultrasound performed by a physician in our office during a routine visit. SIGNS AND SYMPTOMS OF LABOR 1. Contractions every 10 minutes or more often 2. Clear, pink, or brownish fluid (water) leaking from vagina 3. Feeling that baby is pushing down, pressure 4. Low, dull backache 5. Cramps that feel like a period 6. Cramps with or without diarrhea If you notice any of the above symptoms, contact our office at [phone] and ask to speak with a nurse. After hours, you can call doctors registry at [phone] OR call [facility] at [phone] and ask to have the doctor deckhand sponge boat paged. If you consider this an emergency, dial 9-1-0 or go to your nearest emergency department. NEED HELP? Are you dealing with a violent or abusive relationship? Are you a victim of rape or sexual assult? Call [facility] ([place]) 24 hour Crisis Hotline: 175.573.1328 or 989-522-3579. MANUAL Your Guide to a Healthy manual is now on-line. Visit [email or web address] to download your free copy documented in this encounter [facility] 12-08-2024 Progress note Formatting of t his note might be different from the original. EH - S: Ramona is a 34 year old female who presents at 28w6d for a routine visit. Feeling movement. Denies headache, visual changes, chest pain, shortness of breath, vaginal bleeding, leakage of fluid, or dysuria. Some Tony Louis, very rare. O: See flow sheet Gen: No apparent distress Abd: Gravid, nontender, S=D ASSESSMENT/PLAN: 1. Encounter for supervision of other normal in second trimester ([facility]) - ICD9: V22.1, ICD10: Z34.82 (primary diagnosis) - Continue PNV - Considering removal of tubes. Risks and benefits reviewed. 2. 28 weeks gestation of ([facility]) - ICD9: V22.2, ICD10: Z3A.28 - 1 hour GCT, CBC, and RPR today - Rh positive - Declines TDAP - LARC form reviewed and signed. Declines. - Depression screen negative - Opioid screen negative - plan form discussed and given to Ramona - Reviewed how to pre register through [facility] 3. History of hypothyroidism - ICD9: V12.29, ICD10: Z86.39 - TSH/T4 today PTL precautions and kick counts reviewed. RTO in 2 weeks or sooner as needed. Jenny Huitron APRN.SEWING MACHINE ADJUSTER T [facility] 12-08-2024 Miscellaneous Notes Formattin g of this note might be different from the original. EH - S: Ramona is a 34 year old female who presents at 28w6d for a routine visit. Feeling movement. Denies headache, visual changes, chest pain, shortness of breath, vaginal bleeding, leakage of fluid, or dysuria. Some Tony Louis, very rare. O: See flow sheet Gen: No apparent distress Abd: Gravid, nontender, S=D ASSESSMENT/PLAN: 1. Encounter for supervision of other normal in second trimester ([facility]) - ICD9: V22.1, ICD10: Z34.82 (primary diagnosis) - Continue PNV - Considering removal of tubes. Risks and benefits reviewed. 2. 28 weeks gestation of ([facility]) - ICD9: V22.2, ICD10: Z3A.28 - 1 hour GCT, CBC, and RPR today - Rh positive - Declines TDAP - LARC form reviewed and signed. Declines. - Depression screen negative - Opioid screen negative - plan form discussed and given to Ramona - Reviewed how to pre register through [facility] 3. History of hypothyroidism - ICD9: V12.29, ICD10: Z86.39 - TSH/T4 today PTL precautions and kick counts reviewed. RTO in 2 weeks or sooner as needed. Jenny Huitron APRN.CNP documented in this encounter [facility] 12-08-2024 Instructions Jenny Huitron APRN.CNP - 12/08/2024 8:40 AM EDT Please call [phone] to pre-register for your and labor and delivery stay at [facility]. They will want to know your due date, insurance and contact information. This is important to do before you go into labor to help with the efficiency of the admission process when you arrive. Thank you so much! SEQUENTIAL SCREENINGS The [facility] offers sequential screenings for women who are interested in screenings for chromosomal abnormalities and certain defects during a . The sequential screen combines ultrasound and blood tests to determine the risk of chromosomal abnormalities, including Down's Syndrome (Trisomy 21) and Trisomy 18, as well as open neural tube defects including spina bifida. Ultrasound examination is performed between 11 weeks and 13 weeks gestational age. Blood tests are drawn after the ultrasound and again later in the between 15 and 21 weeks gestational age. Please let your physician know if you are interested in this testing. It will require an appointment with our quality systems technician. This is not an ultrasound performed by a physician in our office during a routine visit. SIGNS AND SYMPTOMS OF LABOR 1. Contractions every 10 minutes or more often 2. Clear, pink, or brownish fluid (water) leaking from vagina 3. Feeling that baby is pushing down, pressure 4. Low, dull backache 5. Cramps that feel like a period 6. Cramps with or without diarrhea If you notice any of the above symptoms, contact our office at [phone] and ask to speak with a nurse. After hours, you can call doctors registry at [phone] OR call [facility] at [phone] and ask to have the doctor deckhand sponge boat paged. If you consider this an emergency, dial [phone]- or go to your nearest emergency department. NEED HELP? Are you dealing with a violent or abusive relationship? Are you a victim of rape or sexual assult? Call [facility] ([place]) 24 hour Crisis Hotline: 743.196.5639 or 095-955-3322. MANUAL Your Guide to a Healthy manual is now on-line. Visit [email or web address] to download your free copy documented in this encounter [facility] 11-30-2024 Telephone encount er Note [facility] paperwork received 11/30/2024. Paper work is in providers mailbox waiting to be signed 11/30/2024. [facility] paper work signed and faxed. 12/06/2024 [facility] 11-30-2024 Miscellaneous Notes Formattin g of this note might be different from the original. [facility] paperwork received 11/30/2024. Paper work is in providers mailbox waiting to be signed 11/30/2024. [facility] paper work signed and faxed. 12/06/2024 documented in this encounter [facility] 11-10-2024 Note HNO ID: [id number] Author: JENNY HUITRON APRN.SEWING MACHINE ADJUSTER Service: ? Author Type: Nurse Practitioner Type: Progress Notes Filed: 11/10/2024 08:59 Note Text: EH - S: Ramona is a 34 year old female who presents at 24w6d for a routine visit. Feeling movement. Denies headache, visual changes, chest pain, shortness of breath, vaginal bleeding, leakage of fluid, or dysuria. Feeling well, no complaints. O: See flow sheet Gen: No apparent distress Abd: Gravid, nontender, S>D ASSESSMENT/PLAN: 1. Encounter for supervision of other normal in second trimester ([facility]) - ICD9: V22.1, ICD10: Z34.82 (primary diagnosis) - Continue PNV 2. 24 weeks gestation of ([facility]) - ICD9: V22.2, ICD10: Z3A.24 - GTT, CBC, RPR next visit 3. History of hypothyroidism - ICD9: V12.29, ICD10: Z86.39 - TSH/T4 ordered for next visit - Not on any medication PTL precautions reviewed. RTO in 4 weeks or sooner as needed. Jenny Huitron APRN.SEWING MACHINE ADJUSTER [facility] 11-10-2024 History of Presen t illness Narrative EH - S: Ramona is a 34 year old female who presents at 24w6d for a routine visit. Feeling movement. Denies headache, visual changes, chest pain, shortness of breath, vaginal bleeding, leakage of fluid, or dysuria. Feeling well, no complaints. O: See flow sheet Gen: No apparent distress Abd: Gravid, nontender, S>D ASSESSMENT/PLAN: 1. Encounter for supervision of other normal in second trimester ([facility]) - ICD9: V22.1, ICD10: Z34.82 (primary diagnosis) - Continue PNV 2. 24 weeks gestation of ([facility]) - ICD9: V22.2, ICD10: Z3A.24 - GTT, CBC, RPR next visit 3. History of hypothyroidism - ICD9: V12.29, ICD10: Z86.39 - TSH/T4 ordered for next visit - Not on any medication PTL precautions reviewed. RTO in 4 weeks or sooner as needed. Jenny Huitron APRN.SEWING MACHINE ADJUSTER documented in this encounter [facility] 11-10-2024 Instructions Manuela Taylor MA - 11/10/2024 8:45 AM EDT SEQUENTIAL SCREENINGS The [facility] offers sequential screenings for women who are interested in screenings for chromosomal abnormalities and certain defects during a . The sequential screen combines ultrasound and blood tests to determine the risk of chromosomal abnormalities, including Down's Syndrome (Trisomy 21) and Trisomy 18, as well as open neural tube defects including spina bifida. Ultrasound examination is performed between 11 weeks and 13 weeks gestational age. Blood tests are drawn after the ultrasound and again later in the between 15 and 21 weeks gestational age. Please let your physician know if you are interested in this testing. It will require an appointment with our quality systems technician. This is not an ultrasound performed by a physician in our office during a routine visit. SIGNS AND SYMPTOMS OF LABOR 1. Contractions every 10 minutes or more often 2. Clear, pink, or brownish fluid (water) leaking from vagina 3. Feeling that baby is pushing down, pressure 4. Low, dull backache 5. Cramps that feel like a period 6. Cramps with or without diarrhea If you notice any of the above symptoms, contact our office at [phone] and ask to speak with a nurse. After hours, you can call doctors registry at [phone] OR call [facility] at [phone] and ask to have the doctor deckhand sponge boat paged. If you consider this an emergency, dial 9-1-3 or go to your nearest emergency department. NEED HELP? Are you dealing with a violent or abusive relationship? Are you a victim of rape or sexual assult? Call [facility] ([place]) 24 hour Crisis Hotline: 825.605.6273 or 149-411-3237. MANUAL Your Guide to a Healthy manual is now on-line. Visit [email or web address] to download your free copy documented in this encounter [facility] 10-13-2024 Note HNO ID: [id number] Author: ETHEL RUIZ APRN.CNM Service: ? Author Type: Quoter Type: Progress Notes Filed: 10/13/2024 12:17 Note Text: JAIR-S: Ramona Wahl is a 34 year old female who presents at 20w6d with DEAN:02/24/2025, by Last Menstrual Period for a routine visit. Denies headache, visual changes, chest pain, shortness of breath, vaginal bleeding, leakage of fluid, or dysuria. Feeling well, no complaints. O: See flow sheet Gen: No apparent distress Abd: Gravid, nontender ASSESSMENT/PLAN: 1. Encounter for supervision of other normal in second trimester -Will restart PNV -Anatomy US today, awaiting results 2. 20 weeks gestation of 3. History of hypothyroidism -Thyroid studies normal, will repeat at 28 weeks. No medication in last 4 years 4. History of anxiety -Coping well, no medication at this time PTL precautions reviewed and when to call RTO in 4 weeks Ethel Ruiz APRN.CNM [facility] 10-13-2024 History of Presen t illness Narrative JAIR-S: Ramona Wahl is a 34 year old female who presents at 20w6d with DEAN:02/24/2025, by Last Menstrual Period for a routine visit. Denies headache, visual changes, chest pain, shortness of breath, vaginal bleeding, leakage of fluid, or dysuria. Feeling well, no complaints. O: See flow sheet Gen: No apparent distress Abd: Gravid, nontender ASSESSMENT/PLAN: 1. Encounter for supervision of other normal in second trimester -Will restart PNV -Anatomy US today, awaiting results 2. 20 weeks gestation of 3. History of hypothyroidism -Thyroid studies normal, will repeat at 28 weeks. No medication in last 4 years 4. History of anxiety -Coping well, no medication at this time PTL precautions reviewed and when to call RTO in 4 weeks Ethel Ruiz APRN.CNM documented in this encounter [facility] 10-13-2024 Instructions Joe Farooq MA - 10/13/2024 11:13 AM EDT SEQUENTIAL SCREENINGS The [facility] offers sequential screenings for women who are interested in screenings for chromosomal abnormalities and certain defects during a . The sequential screen combines ultrasound and blood tests to determine the risk of chromosomal abnormalities, including Down's Syndrome (Trisomy 21) and Trisomy 18, as well as open neural tube defects including spina bifida. Ultrasound examination is performed between 11 weeks and 13 weeks gestational age. Blood tests are drawn after the ultrasound and again later in the between 15 and 21 weeks gestational age. Please let your physician know if you are interested in this testing. It will require an appointment with our quality systems technician. This is not an ultrasound performed by a physician in our office during a routine visit. SIGNS AND SYMPTOMS OF LABOR 1. Contractions every 10 minutes or more often 2. Clear, pink, or brownish fluid (water) leaking from vagina 3. Feeling that baby is pushing down, pressure 4. Low, dull backache 5. Cramps that feel like a period 6. Cramps with or without diarrhea If you notice any of the above symptoms, contact our office at [phone] and ask to speak with a nurse. After hours, you can call doctors registry at [phone] OR call [facility] at [phone] and ask to have the doctor deckhand sponge boat paged. If you consider this an emergency, dial 9-1-1 or go to your nearest emergency department. NEED HELP? Are you dealing with a violent or abusive relationship? Are you a victim of rape or sexual assult? Call [facility] ([place]) 24 hour Crisis Hotline: 703.301.8179 or 969-885-4004. MANUAL Your Guide to a Healthy manual is now on-line. Visit [email or web address] to download your free copy documented in this encounter [facility] 09-28-2024 Telephone encount er Note Faxed. Akanksha Fonseca RN [facility] 09-28-2024 Miscellaneous Notes Formattin g of this note might be different from the original. Faxed. Akanksha Fonseca, RN Breast pump request received from [employer]. Order to provider to sign. Fanny Virk RN documented in this encounter [facility] 09-27-2024 Telephone encount er Note Breast pump request received from [employer]. Order to provider to sign. Fanny Virk RN [facility] 09-20-2024 Evaluation note Diagnosis Encounter for supervision of normal intrauterine in multigravida, antepartum (HCC)- Primary * Assessment & Plan Note - Karoline Bautista MD - 09/20/2024 8:50 AM EDT Associated Problem(s): Encounter for supervision of normal intrauterine in multigravida, antepartum (HCC) documented in this encounter [facility]04-21-2025 Progress note* Quick Notes - Karoline Bautista MD - 09/20/2024 8:48 AM EDT RR- VB No. LOF No. CTXS No. Movement: present. Other c/o: No. Medication list reviewed. SENSITIVE EXAM: Sensitive exam not performed. Physical Exam See Flow Sheet Abd: soft, nontender, gravid A/P 17w4d Estimated Date of Delivery: 02/24/25 Assessment & Plan Encounter for supervision of normal intrauterine in multigravida, antepartum (HCC) declines NIPT didn't start asa, too late now f/u in 4 weeks or prn anatomy US scheduled Karoline John, M.D. [facility]04-21-2025 Miscellaneous Notes* Quick Notes - Karoline Bautista MD - 09/20/2024 8:48 AM EDT RR- VB No. LOF No. CTXS No. Movement: present. Other c/o: No. Medication list reviewed. SENSITIVE EXAM: Sensitive exam not performed. Physical Exam See Flow Sheet Abd: soft, nontender, gravid A/P 17w4d Estimated Date of Delivery: 02/24/25 Assessment & Plan Encounter for supervision of normal intrauterine in multigravida, antepartum (HCC) declines NIPT didn't start asa, too late now f/u in 4 weeks or prn anatomy US scheduled Karoline Bautista M.D. [facility] Progress note* Result Encounter Note - Karoline Bautista MD - 08/17/2024 2:50 PM EDT Anatomy ultrasound reviewed. No abnormalities identified. Follow up as clinically indicated. Pleaseplace copy in ob chart. Karoline Bautista MD [facility] Work Phone: 1(921) 913-701703-18-2025 Miscellaneous Notes* Result Encounter Note - Karoline Bautista MD - 08/17/2024 2:50 PM EDT Anatomy ultrasound reviewed. No abnormalities identified. Follow up as clinically indicated. Pleaseplace copy in ob chart. Karoline Bautista MD [facility] Progress note* Quick Notes - Ethel Ruiz APRN.CNM - 08/17/2024 2:36 PM EDT JAIR-S: Ramona Wahl is a 34 year old female who presents at 12w5d with DEAN:02/24/2025, by Last Menstrual Period for a routine visit. Denies headache, visual changes, chest pain, shortness of breath, vaginal bleeding, leakage of fluid, or dysuria. Feeling well, no complaints. O: See flow sheet Gen: No apparent distress Abd: nontender ASSESSMENT/PLAN: 1. Encounter for supervision of other normal in second trimester -PN labs today -Declines ASA -Declines NIPT and carrier screening -Anatomy US at 20wk 2. 12 weeks gestation of 3. History of anxiety -Coping no medication at this time. 4. History of hypothyroidism -TSH and free T4 today PTL precautions reviewed and when to call RTO in 4 weeks Ethel Ruiz APRN.CNM [facility]03-18-2025 Miscellaneous Notes* Quick Notes - Ethel Ruiz APRN.CNM - 08/17/2024 2:36 PM EDT JAIR-S: Ramona Wahl is a 34 year old female who presents at 12w5d with DEAN:02/24/2025, by Last Menstrual Period for a routine visit. Denies headache, visual changes, chest pain, shortness of breath, vaginal bleeding, leakage of fluid, or dysuria. Feeling well, no complaints. O: See flow sheet Gen: No apparent distress Abd: nontender ASSESSMENT/PLAN: 1. Encounter for supervision of other normal in second trimester -PN labs today -Declines ASA -Declines NIPT and carrier screening -Anatomy US at 20wk 2. 12 weeks gestation of 3. History of anxiety -Coping no medication at this time. 4. History of hypothyroidism -TSH and free T4 today PTL precautions reviewed and when to call RTO in 4 weeks Ethel Ruiz APRN.CNM [facility] Instructions* Patient Instructions* Joe Farooq MA - 08/17/2024 2:03 PM EDT SEQUENTIAL SCREENINGS The [facility] offers sequential screenings for women who are interested in screenings for chromosomal abnormalities and certain defects during a . The sequential screen combinesultrasound and blood tests to determine the risk of chromosomal abnormalities, including Down's Syndrome (Trisomy 21) and Trisomy 18, as well as open neural tube defects including spina bifida. Ultrasound examination is performed between 11 weeks and 13 weeks gestational age. Blood tests are drawn after the ultrasound and again later in the between 15 and 21 weeks gestational age. Please let your physician know if you are interested in this testing. It will require an appointment withour quality systems technician. This is not an ultrasound performed by a physician in our office during a routine visit. SIGNS AND SYMPTOMS OF LABOR 1. Contractions every 10 minutes or more often 2. Clear, pink, or brownish fluid (water) leaking from vagina 3. Feeling that baby is pushing down, pressure 4. Low, dull backache 5. Cramps that feel like a period 6. Cramps with or without diarrhea If you notice any of the above symptoms, contact our office at [phone] and ask to speak with anurse. After hours, you can call doctors registry at [phone] OR call [facility] at [phone] ask to have the doctor deckhand sponge boat paged. If you consider this an emergency, dial 1-4-2 or go to your nearest emergency department. NEED HELP? Are you dealing with a violent or abusive relationship? Are you a victim of rape or sexual assult? Call [facility] ([place]) 24 hour Crisis Hotline: 462.291.5529 or 067-323-5143. MANUAL Your Guide to a Healthy manual is now on-line. Visit [email or web address] to download your free copy documented in this encounterE[facility] History of Present illness Narrative* Jeannie Taylor APRN.SEWING MACHINE ADJUSTER - 08/17/2024 10:20 AM EDT 08/17/2024 Patient presents with: Establish Care SUBJECTIVE: This is a 34 year old that is here today for Above Complaints. Currently following with OB for 12 weeks . Trying to eat healthy and stay active. Has some nausea and vomiting. Has Zofran to take Past medical, surgical, family, social hx, medications, allergies and health maintenance reviewed and updated. PAST MEDICAL HISTORY Diagnosis Date anxiety Hyperemesis gravidarum Hypothyroid infertility treatment Infertility, female PCOS (polycystic ovarian syndrome) ALLERGIES Patient has no known allergies. MEDICATIONS Current Outpatient Medications Medication Sig aspirin, enteric coated (ECOTRIN LOW STRENGTH) 81 mg EC tablet Take 1 tablet by mouth once daily. ondansetron orally disintegrating (ZOFRAN ODT) 4 mg disintegrating tablet Take 1 tablet by mouth every 8 hours as needed. No current facility-administered medications for this visit. Medications and allergies reviewed by this provider. SOCIAL HISTORY Social History Tobacco Use Smoking status: Never Smokeless tobacco: Never Vaping Use Vaping status: Never Used Substance Use Topics Alcohol use: Never Drug use: Never REVIEW OF SYSTEMS GENERAL: No weight loss, malaise or fevers HEENT: Negative for frequent or significant headaches, No changes in hearing or vision, no nose bleeds or other nasal problems NECK: Negative for lumps, goiter, pain and significant neck swelling RESPIRATORY: Negative for cough, hemoptysis, wheezing, COPD, dyspnea or shortness of breath CARDIOVASCULAR: Negative for chest pain, leg swelling, hypertension, CHF or palpitations GI: No diarrhea : No history of dysuria, frequency or incontinence PETROPHYSICAL ENGINEER: Negative for abnormal vaginal bleeding, abnormal vaginal discharge MUSCULOSKELETAL: Negative for joint pain or swelling, back pain or muscle pain SKIN: Negative for lesions, rash, and itching PSYCH: Negative for sleep disturbance, mood disorder and recent psychosocial stressors HEMATOLOGY/LYMPHOLOGY: Negative for prolonged bleeding, bruising easily or swollen nodes ENDOCRINE: Negative for cold or heat intolerance, polyuria, polydipsia and goiter NEURO: No history of headaches, syncope, paralysis, seizures or tremors All other reviewed and negative other than HPI. OBJECTIVE: BP 98/76 Pulse 91 Resp 18 Ht 158.7 cm (5' 2.48) Wt 53.3 kg (117 lb 9.6 oz) LMP 05/20/2024 SpO2 98% BMI 21.18 kg/m . Vital signs reviewed by this provider. APPEARANCE Well appearing, alert, in no acute distress, well-hydrated, well nourished. EYES PERRLA, conjunctiva and sclera normal. EARS External ears normal, canals clear NECK Supple, no adenopathy; thyroid symmetric, normal size, no bruits HEART RRR with normal S1 and S2, no murmurs, no gallops, no JVD appreciated LUNG clear to auscultation. No wheezes, rhonchi or rales ABDOMEN bowel sounds normoactive, no bruits, soft, non-tender, non-distended EXTREMITIES Extremities normal, No deformities, No skin discoloration, and No edema SKIN Skin color, texture, turgor normal, no suspicious rashes or lesions to exposed skin Depression Screening Never done Anxiety Screening Never done Hepatitis B Vaccine(1 of 3 - 19+ 3-dose series) Never done Influenza Vaccine(1) due on 11/29/2024 Covid-19 Vaccine( - 2023- season) due on 08/17/2025 RSV Vaccine(1 - Risk 1-dose series) due on 01/31/2025 Cervical Cancer Screening due on 07/20/2029 DTaP,Tdap,Td Vaccine(3 - Td or Tdap) due on 09/20/2032 Hepatitis C Screening Completed HIV Screening Completed ASSESSMENT/PLAN: 1. Encounter for medical examination to establish care - ICD9: V70.9, ICD10: Z00.00 - Counseled on healthy diet and regular exercise - follow-up with OB as scheduled - Follow up for annual exam in one year Jeannie Taylor APRN.BECCA Prescription instructions reviewed with patient as applicable. Patient advised if symptoms do not improve or if symptoms worsen sooner, to contact their primary care physician. Potential red flag symptoms discussed with the patient. Reviewed appropriate action plan to take if red flag symptoms occur. Patient agreeable to treatment plan. documented in this encounterE[facility]03-[facility]25 NoteHNO ID: [id number] Author: JEANNIE TAYLOR APRN.CNP Service: ? Author Type: Nurse Practitioner Type: Progress Notes Filed: 08/17/2024 10:50 Note Text: 08/17/2024 Patient presents with: Establish Care SUBJECTIVE: This is a 34 year old that is here today for Above Complaints. Currently following with OB for 12 weeks . Trying to eat healthy and stay active. Has some nausea and vomiting. Has Zofran to take Past medical, surgical, family, social hx, medications, allergies and health maintenance reviewed and updated. PAST MEDICAL HISTORY Diagnosis Date anxiety Hyperemesis gravidarum Hypothyroid infertility treatment Infertility, female PCOS (polycystic ovarian syndrome) ALLERGIES Patient has no known allergies. MEDICATIONS Current Outpatient Medications Medication Sig aspirin, enteric coated (ECOTRIN LOW STRENGTH) 81 mg EC tablet Take 1 tablet by mouth once daily. ondansetron orally disintegrating (ZOFRAN ODT) 4 mg disintegrating tablet Take 1 tablet by mouth every 8 hours as needed. No current facility-administered medications for this visit. Medications and allergies reviewed by this provider. SOCIAL HISTORY Social History Tobacco Use Smoking status: Never Smokeless tobacco: Never Vaping Use Vaping status: Never Used Substance Use Topics Alcohol use: Never Drug use: Never REVIEW OF SYSTEMS GENERAL: No weight loss, malaise or fevers HEENT: Negative for frequent or significant headaches, No changes in hearing or vision, no nose bleeds or other nasal problems NECK: Negative for lumps, goiter, pain and significant neck swelling RESPIRATORY: Negative for cough, hemoptysis, wheezing, COPD, dyspnea or shortness of breath CARDIOVASCULAR: Negative for chest pain, leg swelling, hypertension, CHF or palpitations GI: No diarrhea : No history of dysuria, frequency or incontinence PETROPHYSICAL ENGINEER: Negative for abnormal vaginal bleeding, abnormal vaginal discharge MUSCULOSKELETAL: Negative for joint pain or swelling, back pain or muscle pain SKIN: Negative for lesions, rash, and itching PSYCH: Negative for sleep disturbance, mood disorder and recent psychosocial stressors HEMATOLOGY/LYMPHOLOGY: Negative for prolonged bleeding, bruising easily or swollen nodes ENDOCRINE: Negative for cold or heat intolerance, polyuria, polydipsia and goiter NEURO: No history of headaches, syncope, paralysis, seizures or tremors All other reviewed and negative other than HPI. OBJECTIVE: BP 98/76 Pulse 91 Resp 18 Ht 158.7 cm (5' 2.48) Wt 53.3 kg (117 lb 9.6 oz) LMP 05/20/2024 SpO2 98% BMI 21.18 kg/m? . Vital signs reviewed by this provider. APPEARANCE Well appearing, alert, in no acute distress, well-hydrated, well nourished. EYES PERRLA, conjunctiva and sclera normal. EARS External ears normal, canals clear NECK Supple, no adenopathy; thyroid symmetric, normal size, no bruits HEART RRR with normal S1 and S2, no murmurs, no gallops, no JVD appreciated LUNG clear to auscultation. No wheezes, rhonchi or rales ABDOMEN bowel sounds normoactive, no bruits, soft, non-tender, non-distended EXTREMITIES Extremities normal, No deformities, No skin discoloration, and No edema SKIN Skin color, texture, turgor normal, no suspicious rashes or lesions to exposed skin Depression Screening Never done Anxiety Screening Never done Hepatitis B Vaccine(1 of 3 - 19+ 3-dose series) Never done Influenza Vaccine(1) due on 11/29/2024 Covid-19 Vaccine( - 2023- season) due on 08/17/2025 RSV Vaccine(1 - Risk 1-dose series) due on 01/31/2025 Cervical Cancer Screening due on 07/20/2029 DTaP,Tdap,Td Vaccine(3 - Td or Tdap) due on 09/20/2032 Hepatitis C Screening Completed HIV Screening Completed ASSESSMENT/PLAN: 1. Encounter for medical examination to establish care - ICD9: V70.9, ICD10: Z00.00 - Counseled on healthy diet and regular exercise - follow-up with OB as scheduled - Follow up for annual exam in one year Jeannie RicelogFRED stewart.SEWING MACHINE ADJUSTER Prescription instructions reviewed with patient as applicable. Patient advised if symptoms do not improve or if symptoms worsen sooner, to contact their primary care physician. Potential red flag symptoms discussed with the patient. Reviewed appropriate action plan to take if red flag symptoms occur. Patient agreeable to treatment plan.[facility]02[facility] NoteHNO ID: [id number] Author: MARIELLE JIMÉNEZ APRN.SEWING MACHINE ADJUSTER Service: ? Author Type: Nurse Practitioner Type: Progress Notes Filed: 07/20/2024 10:21 Note Text: Patient declined speech/language therapist. INITIAL OB ASSESSMENT HPI: Ramona is a 34 year old White Female here to establish Obstetrical Care. Patient's last menstrual period was 05/20/2024. from OB Dating Form. was unplanned but accepted Complaints: (!) Severe nausea/vomiting OB History Gravida3 Para2 Term2 Preterm0 AB0 Living2 SAB0 IAB0 Ectopic0 Multiple0 Live Births2 Comment: 1 vaginal delivery Previous history: Prior : No History of 4th degree laceration: No History of shoulder dystocia: No History of Hypertensive disorders including pre-eclampsia or gestational hypertension: No History of gestational diabetes: No Patient's Risk Screening for delivery: Have you had a prior glasgow between 20w and 36w6d? No How many pregnancies have you had before? 2 Did you have a previous baby with a GBS Infection? No Please select all that apply for any prior : N/A MEDICAL/PSYCHOSOCIAL HISTORY: History of hemorrhage or bleeding concerns: No Thyroid Disease: Yes History of chronic hypertension: No History of pre-existing diabetes: No No results found for: ABORHD BMI 21.21 kg/(m2) Last Pap: 04/08/2022 History of abnormal pap: No Prior treatment for cervical dysplasia: none. Last HPV: History of STDs: N/A Partner History of STDs: None Did you have a partner with Herpes? No Tobacco use: No E-Cigarette/Vaping Use: No Caffeine use: No Drug use: No Alcohol use: No Multivitamin with Folic acid: No Would refuse blood transfusion if medically necessary: No Social Needs: How often does this describe you? I don't have enough money to pay my bills: Never Within the past 12 months, have you worried that your food would run out before you had money to buy more? Never In the past 12 months, has lack of reliable transportation kept you from going to medical appointments or work, or from getting things needed for daily living? Never In the past 12 months, have you had any concerns about having a place to live, or about the condition or quality of your housing? Never Would you like more information on any of the following (please check all that apply)? Not interested Social History: Do you have any history of depression, anxiety, PTSD, or other mood problems? Yes Do you have a history of abuse or trauma that may impact your experience? No Are you currently employed? Yes Depression/Anxiety Screening: denies, admits to symptoms of depression. OB Depression and Anxiety Screening- This Encounter (since 07/19/2024) Over the past 2 weeks have you felt down, depressed, or hopeless? Negative Over the past two weeks, have you felt little interest or pleasure in doing things?? Negative Feeling nervous, anxious or on edge 0-Not at all Not being able to stop or control worrying 0-Not al all Anxiety Pre-Screening Total (If >/= 3 additional questions will be reviewed) 0 Genetic Screening: Partner present: No Patient verbalized knowledge of partner family health history: Yes Do you or your partner have any personal or family history of defects not previously discussed: No Do you have history of a complicated by anomaly, genetic condition, or demise: No Preeclampsia Risk Screening: Screening for prevention of preeclampsia: High risk factors: None Moderate risk ractors: None OB Risk Screening: Completed, no positive findings documented. Marital Status: Partner: Name: Jair Age: 31 Occupation: [employer] Gender: Male PAST MEDICAL HISTORY Diagnosis Date anxiety Hyperemesis gravidarum Hypothyroid infertility treatment Infertility, female PCOS (polycystic ovarian syndrome) PAST SURGICAL HISTORY Procedure Laterality Date ADENOIDECTOMY HX EXTRACTION ERUPTED TOOTH/EXR REMOVAL GALLBLADDER 10/2021 Current Outpatient Medications Medication Sig Dispense Refill promethazine (PHENERGAN) 25 mg tablet Take 25 mg by mouth every 6 hours as needed. famotidine (PEPCID) 40 mg tablet Take 1 tablet by mouth once daily. (Patient not taking: Reported on 07/20/2024) 30 tablet 1 folic acid 1 mg tablet Take 1 tablet by mouth once daily. (Patient not taking: Reported on 07/20/2024) 30 tablet 2 metoclopramide HCl (REGLAN) 10 mg tablet Take 1 tablet by mouth three times a day as needed. (Patient not taking: Reported on 07/20/2024) 90 tablet 0 No current facility-administered medications for this visit. Allergies As of Date: 07/20/2024 (No Known Allergies) Fully Assessed 07/20/2024 Does patient have penicillin allergy: No REVIEW OF SYSTEMS: GENERAL: Negative for: Fever or Chills HEENT: Negative for: Headache, Impaired Vision, Ringing in Ears, Nosebleeds NECK: Negative for: Swelling, Pain, (more content not included)...[facility]02-[facility] History of Present illness Narrative* Marielle Jiménez APRN.SEWING MACHINE ADJUSTER - 07/19/2024 2:33 PM EST Patient declined speech/language therapist. INITIAL OB ASSESSMENT HPI: Ramona is a 34 year old White Female here to establish Obstetrical Care. Patient's last menstrual period was 05/20/2024. from OB Dating Form. was unplanned but accepted Complaints: (!) Severe nausea/vomiting OB History Gravida3 Para2 Term2 Preterm0 AB0 Living2 SAB0 IAB0 Ectopic0 Multiple0 Live Births2 Comment: 1 vaginal delivery Previous history: Prior : No History of 4th degree laceration: No History of shoulder dystocia: No History of Hypertensive disorders including pre-eclampsia or gestational hypertension: No History of gestational diabetes: No Patient's Risk Screening for delivery: Have you had a prior glasgow between 20w and 36w6d? No How many pregnancies have you had before? 2 Did you have a previous baby with a GBS Infection? No Please select all that apply for any prior : N/A MEDICAL/PSYCHOSOCIAL HISTORY: History of hemorrhage or bleeding concerns: No Thyroid Disease: Yes History of chronic hypertension: No History of pre-existing diabetes: No No results found for: ABORHD BMI 21.21 kg/(m^2) Last Pap: 04/08/2022 History of abnormal pap: No Prior treatment for cervical dysplasia: none. Last HPV: History of STDs: N/A Partner History of STDs: None Did you have a partner with Herpes? No Tobacco use: No E-Cigarette/Vaping Use: No Caffeine use: No Drug use: No Alcohol use: No Multivitamin with Folic acid: No Would refuse blood transfusion if medically necessary: No Social Needs: How often does this describe you? I don't have enough money to pay my bills: Never Within the past 12 months, have you worried that your food would run out before you had money to buy more? Never In the past 12 months, has lack of reliable transportation kept you from going to medical appointments or work, or from getting things needed for daily living? Never In the past 12 months, have you had any concerns about having a place to live, or about the condition or quality of your housing? Never Would you like more information on any of the following (please check all that apply)? Not interested Social History: Do you have any history of depression, anxiety, PTSD, or other mood problems? Yes Do you have a history of abuse or trauma that may impact your experience? No Are you currently employed? Yes Depression/Anxiety Screening: denies, admits to symptoms of depression. OB Depression and Anxiety Screening- This Encounter (since 07/19/2024) Over the past 2 weeks have you felt down, depressed, or hopeless? Negative Over the past two weeks, have you felt little interest or pleasure in doing things? Negative Feeling nervous, anxious or on edge 0-Not at all Not being able to stop or control worrying 0-Not al all Anxiety Pre-Screening Total (If >/= 3 additional questions will be reviewed) 0 Genetic Screening: Partner present: No Patient verbalized knowledge of partner family health history: Yes Do you or your partner have any personal or family history of defects not previously discussed: No Do you have history of a complicated by anomaly, genetic condition, or demise: No Preeclampsia Risk Screening: Screening for prevention of preeclampsia: High risk factors: None Moderate risk ractors: None OB Risk Screening: Completed, no positive findings documented. Marital Status: Partner: Name: Jair Age: 31 Occupation: [employer] Gender: Male PAST MEDICAL HISTORY Diagnosis Date anxiety Hyperemesis gravidarum Hypothyroid infertility treatment Infertility, female PCOS (polycystic ovarian syndrome) PAST SURGICAL HISTORY Procedure Laterality Date ADENOIDECTOMY HX EXTRACTION ERUPTED TOOTH/EXR REMOVAL GALLBLADDER 10/2021 Current Outpatient Medications Medication Sig Dispense Refill promethazine (PHENERGAN) 25 mg tablet Take 25 mg by mouth every 6 hours as needed. famotidine (PEPCID) 40 mg tablet Take 1 tablet by mouth once daily. (Patient not taking: Reported on 07/20/2024) 30 tablet 1 folic acid 1 mg tablet Take 1 tablet by mouth once daily. (Patient not taking: Reported on 07/20/2024) 30 tablet 2 metoclopramide HCl (REGLAN) 10 mg tablet Take 1 tablet by mouth three times a day as needed. (Patient not taking: Reported on 07/20/2024) 90 tablet 0 No current facility-administered medications for this visit. Allergies As of Date: 07/20/2024 (No Known Allergies) Fully Assessed 07/20/2024 Does patient have penicillin allergy: No REVIEW OF SYSTEMS: GENERAL: Negative for: Fever or Chills HEENT: Negative for: Headache, Impaired Vision, Ringing in Ears, Nosebleeds NECK: Negative for: Swelling, Pain, Stiffness RESPIRATORY: Negative for: Cough, Shortness of breath, Wheezing GASTROINTESTINAL: Positive for: Constipation and Positive for: Nausea and Vomiting MUSCULOSKELETAL: Negative for: Muscle or joint pain, stiffness, Joint swelling NEUROLOGIC/PSYCHIATRIC: Negative for: Weakness, Paralysis, Numbness, Tingling, Tremor, Anxiety, Depression, Memory loss SKIN: Negative for: Rash, Itching GENITOURINARY: Negative for: vaginal itching, vaginal discharge, hematuria or dysuria SENSITIVE EXAM: The sensitive examination was discussed with the Patient or Patient's Authorized Ground Source Heat Pump Technician. As applicable, any other physician, advance practice provider, medical student, or other health professional student that will be observing or involved in the sensitive examination for educational or training purposes was discussed with the Patient or Authorized Ground Source Heat Pump Technician. The Patient or Authorized Ground Source Heat Pump Technician has agreed to proceed with the sensitive examination. (Sensitive examination includes inspection and/or palpation of the breasts, pelvis, prostate and anorectal regions). PHYSICAL EXAM: BP 98/56 Wt 117 lb 3.2 oz (53.2kg) LMP 05/20/2024 GENERAL: pleasant in no apparent distress DERMATOLOGY: Normal, without lesions, non-icteric, and non-hirsute NECK: Supple, full range of motion, no adenopathy, and thyroid normal CHEST: Normal inspiratory effort BREAST: soft, non-tender, symmetric, no dominant mass, normal nipple-areolar complex, no lymphadenopathy, and no nipple discharge ABDOMEN: soft, non-tender, and no masses NEURO: alert and oriented x3,exam grossly non-focal PELVIS: External genitalia normal without lesions. Perineal body intact. No vaginal or cervical lesions. Cervix closed. No adnexal masses or tenderness. Clinical Pelvimetry: Pelvimetry clinically assessed as adequate Limited OB ultrasound exam: single intrauterine , positive cardiac activity, and POCUS performed. +cardiac activity, CRL consistent with LMP. Marielel Jiménez, SITE CONTROLLER.SEWING MACHINE ADJUSTER ASSESSMENT: 34 year old at 8w5d wks gestational age PLAN: 1) Patient oriented to practice. Patient given new OB orientation folder. Discussed nutrition, folic acid supplementation, dietary guidelines, exercise, smoking, alcohol, caffeine, and drug use. Discussed gestational weight gain guidelines. Discussed routine OB labs including STD/HIV. Discussed how to access Your guide to a health and the Typewriter Assembler. Reviewed midwifery and manager flight services that are available. 2) Screening: Hemoglobin A1C: ordered Baby Aspirin: The patient has been counseled about the potential benefits of low dose aspirin in and our recommendation that this be offered to all patients, regardless of whether they meet the high risk criteria specified above. She Accepts Aneuploidy Screening: Discussed aneuploidy screening, nuchal translucency/first trimester early anatomy ultrasound and NIPT. The risks/benefits and limitations of NIPT/aneuploidy screening were reviewed including the potential for false negative and false positive results. The availability of genetic counseling was reviewed. Information on aneuploidy screening was provided. The patient chooses toproceed with First trimester early anatomy ultrasound (12-13w6d) [facility] Carrier Screening: Discussed myriad carrier screening. We discussed the availability of professional-society guided carrier screening and reviewed the conditions screened and limitations of screening. The availability of genetic counseling was reviewed. Information on carrier screening was provided. The patient Declines 3) Patient offered option of Virtual Visits. Patient unsure. May consider in future. 4) Thyroid Disease: TSH ordered 5) hx of hyperemesis- needed a Zofran pump Oral Zofran ordered today, other measures tried but did not help Follow up in 4 weeks or sooner prn. Marielle Jiménez APRN.BECCA documented in this encounterE[facility]02-17-[facility]25 Instructions* Patient Instructions* Kaylie Benz LPN - 07/19/2024 2:33 PM EST Please select the following link to access the [facility] Your Guide to a Healthy . [email or web address] Please select the following link to access the [facility] Your Guide to a Healthy . [email or web address] documented in this encounterE[facility]02-10-[facility]25 Instructions* Patient Instructions* Ethel Ruiz APRN.CNM - 07/12/2024 10:11 AM EST Get labs drawn at [facility] visit MORNING SICKNESS IN by Taryn Riley M.D. for [employer] As you may already know, morning sickness can often be more appropriately called evening sickness or jfmvh-rgvrox-jw-the-day sickness. While there are the rolando few, most women (50-90%) experience some degree of nausea, some have vomiting, and a few develop a severe form of vomiting duringpregnancy called hyperemesis gravidarum. What causes the nausea and vomiting of ? We can't explain why some people feel fine and others are green for months. Even the same woman mayfeel vastly different in each . There is some relationship between nausea and the level ofthe hormone hCG. In twin pregnancies, and in other situations where the hCG is greater than expected, nausea and vomiting tend to be worse. In a destined for miscarriage, hCG levels tend to be low, and nausea is often less severe. This being said, a lack of nausea doesn't guarantee that the is destined for miscarriage. The fact that nausea and vomiting are often signs of a healthy can offer a silver lining in the dark cloud of miserable nausea. How long will the nausea last? Fortunately, for most women, nausea and vomiting are a first trimester event, peaking at week 9-10 and waning by week 14-16. When you are feeling bad the weeks can go by slowly but most momsdo feel tremendously better by the middle of the . Whether morning sickness is a brief experience or lasts through most of the , there are treatments that can make the weeks or months more tolerable. What can you do about it? Diet: See what works for you. Try eating bland dry foods, and avoid fatty or spicy foods. It is okay to eat a less than perfectly balanced diet in the first trimester. Have your liquids separately from dry foods. Try sports drinks, water, clear juices, Yuval-aid, or non-caffeinated tea. Avoid carbonated beverages that fill up your stomach. Try eating lots of little meals. If you tend to feel sick when you first wake up, leave crackers next to the bed for a quick snack before rising. Keeping healthy snacks with you all day to nibble when you feel queasy can sometimes even prevent nausea from starting. vitamins and nausea: Pre-ramila vitamins can sometimes worsen nausea in . While folate is necessary, especially early in the , it comes as a smaller pill that many people find more tolerable than the complete vitamin pill. Ask your practitioner if it is okay to temporarilyreplace vitamins and iron with just a folate pill if you find a significant worsening in the level of your nausea from the vitamins. Alternative therapies: Acupressure may be used to treat nausea in , and is not known to have any risks for the fetus. Wristbands (marketed for seasickness) that put pressure on an acupressure point at the wrist are often available at drugstores or travel stores. Shahana root is used for nausea in many traditional cultures. Some women take fresh grated shahana or shahana tablets. It is possible that the pill form contains other ingredients or contaminants, so you may want to try fresh shahana first. Medications: Emetrol is the only nausea medication approved for use in . It is available over the counter and is soothing to the stomach. A prescription medication called Bendectin was available in the 1970s-1979's and was shown to be safe in , but the company stopped marketing it in the [place] due to the costs of liability coverage. Bendectin contained 10 milligrams of vitamin B6 and 10 milligrams of Doxylamine. Two tablets were given at bedtime and a total of up to 4 tablets could be used in a 24-hour period. Interestingly, Unisom , which contains a higher dose (25 mg.) of the same medication, Doxylamine, is currently marketed as an pfnp-dia-pweweio sleeping pill. Ask your practitioner if creating a vitamin B6/Doxylaminecombination with jqyq-rfn-duyikum medications would be safe for you. Prescription medications like Compazine and Phenergan can be used if the benefits outweigh possiblerisks, but these have not been clearly shown to be safe in . Zofran , an expensive anti-nausea medication often used to treat nausea from chemotherapy, can also be used. Can I throw up so much it harms the baby? The act of vomiting cannot hurt your fetus, which is protected inside the uterus. If you get dehydrated or develop a metabolic imbalance, this can be unhealthy. As long as you can keep down liquids, you and your baby will generally do all right. Eat when you feel able. If you are unable to keep anyt elyse down, or if you notice potential signs of dehydration such as lightheadedness, or concentratedand/or infrequent urination, call your practitioner. Some women need brief hospital admission for intravenous fluids and anti-nausea medications if their condition becomes severe. This severe form ofnausea and vomiting is called Hyperemesis Gravidarum. As with many symptoms of , remind yourself that this, too, shall pass, and you'll have a wonderful baby to show for it! TREATMENT OPTIONS, SHORT VERSION: Frequent small meals Hydrate throughout day [employer] wrist pressure point applicators Shahana root (powdered, in capsules) 250mg four times a day Vitamin B6 25 mg tablet three times a day Also may be taken with half a tablet of Unisom three times a day (Doxylamine 12.5 mg) If severe (weight loss, dehydration), call us and come in for IV hydration and possible medication in the form of injections. Prescription medications such as Phenergan, Compazine, Reglan LMNT or Liquid IV packs 1-2 times a day Body Soledad Reglan for nausea Pepcid daily Stop PNV and start folic acid only Follow up at new OB appointment. If worsening before the weekend please call the office. Can also go to ED if needed. Metoclopramide June 02, 2019 This sheet talks about exposure to metoclopramide in a and while . This information should not take the place of medical care and advice from your healthcare provider. What is metoclopramide? Metoclopramide is a medication that has been used to treat gastrointestinal motility issues, for nausea and vomiting caused by surgical operations, chemotherapy, or , and to help with . This medication has been sold under band names such as Reglan , Maxolon or Metozolv ODT . Can taking metoclopramide made it harder for me to get ? There have been some reports of menstrual problems and galactorrhea (milk production that is not related to ) among women who have taken metoclopramide. Women who have these side effectsmight have a harder time becoming . However, studies have not suggested that metoclopramidewould affect fertility (a person s ability to get ). I have been taking metoclopramide and just found out I am . Should I stop? You should speak with your healthcare provider before making changes in this medication. If you areexperiencing nausea and vomiting or gastrointestinal problems that are affecting your ability to function, speak with your healthcare provider about which medication would be best for you and your baby. For more information on nausea and vomiting in , please see the MotherToBaby fact sheeton Nausea and Vomiting in at https://mothertobaby.org/fact-sheets/jsvmax-tivorrps-ccepdaeki-nvp/pdf/. Can metoclopramide increase the chance for a miscarriage? Miscarriage can occur in any . A small number of studies did not find an increased chance for miscarriage among women taking metoclopramide. Can taking metoclopramide during cause defects? In every , a woman starts out with a 3-5% chance of having a baby with a defect. This is called her background risk. Current information does not suggest an increased chance for defects when metoclopramide is taken early in . Can taking metoclopramide during cause other complications? For the woman, maybe. There are case reports of women who developed severe side effects while taking metoclopramide during which required them to be admitted to a hospital for treatment. Inthese reports, 2 women developed movement disorders (known as tardive dyskinesia) and 2 other womendeveloped intermittent porphyria (a condition that affects the body s ability to make red blood cells) which led to psychiatric conditions. All reports showed that these women got well with treatmentand went on to have healthy newborns. These reports do not tell us how often this may occur during and more studies are needed. If you are taking metoclopramide tell your healthcare provider about any changes in your mood or any movement disorders such as lip smacking, jerky eye movements, or jerky limb movements. Can I breastfeed while taking metoclopramide? Most likely. There is limited information on the use of metoclopramide during . Metoclopramide can cross into the breast milk. While most reports have not listed any side effects in the nursing infants, it has not been well studied. If your baby was to experience side effects, it wouldmost likely be stomach discomfort and gas. If you are worried about any symptoms the baby has, contact the child s healthcare provider. Metoclopramide use while might increase your chance for post- depression. Any changes in your mood should be reported to your healthcare provider. Is it true that metoclopramide can increase the amount of milk that I make? There are some small studies that looked at whether metoclopramide increases or causes milk production. One study found that metoclopramide use could slightly increase the amount of milk produced while a similar study found that it did not increase milk production. If you are having trouble with milk production, working with a design consultant may be the most helpful in increasing your breastmilk production. Be sure to talk to your health care provider about all of your questions. What if the father of the baby takes metoclopramide? There is no evidence that suggests that a man s metoclopramide use would cause any problems during his partner s . In general, medications that the father takes do not increase risk to a . For more information, please see the MotherToBaby fact sheet on Paternal Exposures at https:/ /mothertobaby.org/fact-sheets/eixncinb-rccanbkky-zcwnexjms/pdf/. documented in this [facility] NoteHNO ID: [id number] Author: ETHEL RUIZ APRN.CNM Service: ? Author Type: Quoter Type: Progress Notes Filed: 07/12/2024 10:26 Note Text: DISTANCE HEALTH VISIT This Team Access Model visit is a virtual encounter. It required patient-provider interaction for the medical decision making as documented below. I have communicated my name and active licensure. The patient's identity and physical location were verified at the time of this visit. Either the patient or their legal development representative has been informed of the risks and benefits of -- and alternatives to -- treatment through a remote evaluation and consents to proceed with the evaluation remotely. Ramona Wahl is a 34 year old female seen for nausea in . Presents with early causing N/V. Had history of HG with first . Second was better. Currently trying to keep food and liquids down but it is causing issues. Used Vitamin B 6 and Unisom for about a week and no resolution Emesis about 8-10 times a day and nausea most of the day. Can keep small amounts of liquid, about a 1-2 cups. Very limited food intake because it comes right back up. Has tried braty bland diet and not working. Dry lips, dry mouth LMP 05/20/24 7w4d HISTORY REVIEWED (electronic chart updated): - medical history - medications - allergies REVIEW OF SYSTEMS: GENERAL: feeling well without fatigue, no recent change in weight, dry lips PHYSICAL EXAMINATION: VIDEO EXAM: (if done, performed via video enabled technology) GENERAL: alert and appropriate, in no distress, well-hydrated, well nourished, and happy, smiling, interactive ASSESSMENT/PLAN: 1. Nausea and vomiting in - ICD9: 643.90, ICD10: O21.9 (primary diagnosis) - FAMOTIDINE 40 MG TABLET - COMPREHENSIVE METABOLIC PANEL - THYROID STIMULATING HORMONE - FOLIC ACID 1 MG TABLET - METOCLOPRAMIDE 10 MG TABLET - T4 FREE/FREE THYROXINE - Will stop PNV and start folic acid - Offered outpatient IV hydration but would like to try this first. If no improvement to call -NOB in one week and can follow up at that time. 2. 7 weeks gestation of - ICD9: V22.2, ICD10: Z3A.01 - FAMOTIDINE 40 MG TABLET - COMPREHENSIVE METABOLIC PANEL - THYROID STIMULATING HORMONE - FOLIC ACID 1 MG TABLET - METOCLOPRAMIDE 10 MG TABLET 3. History of hypothyroidism - ICD9: V12.29, ICD10: Z86.39 - T4 FREE/FREE THYROXINE - THYROID STIMULATING HORMONE Ethel Ruiz APRN.CNM I spent 20 minutes in the visit, with more than 50% of the total izai-hy-rika time of the visit in counseling / coordination of care.[facility]02-10-2025 History of Present illness Narrative* Ethel Ruiz APRN.CNM - 07/12/2024 9:59 AM EST DISTANCE HEALTH VISIT This Team Access Model visit is a virtual encounter. It required patient- provider interaction for the medical decision making as documented below. I have communicated my name and active licensure. The patient's identity and physical location wereverified at the time of this visit. Either the patient or their legal development representative has been informed of the risks and benefits of -- and alternatives to -- treatment through a remote evaluation andconsents to proceed with the evaluation remotely. Ramona Wahl is a 34 year old female seen for nausea in . Presents with early causing N/V. Had history of HG with first . Second pregnancywas better. Currently trying to keep food and liquids down but it is causing issues. Used Vitamin B 6 and Unisom for about a week and no resolution Emesis about 8-10 times a day and nausea most of the day. Can keep small amounts of liquid, about a 1-2 cups. Very limited food intake because it comes rightback up. Has tried braty bland diet and not working. Dry lips, dry mouth LMP 05/20/24 7w4d HISTORY REVIEWED (electronic chart updated): - medical history - medications - allergies REVIEW OF SYSTEMS: GENERAL: feeling well without fatigue, no recent change in weight, dry lips PHYSICAL EXAMINATION: VIDEO EXAM: (if done, performed via video enabled technology) GENERAL: alert and appropriate, in no distress, well-hydrated, well nourished, and happy, smiling, interactive ASSESSMENT/PLAN: 1. Nausea and vomiting in - ICD9: 643.90, ICD10: O21.9 (primary diagnosis) - FAMOTIDINE 40 MG TABLET - COMPREHENSIVE METABOLIC PANEL - THYROID STIMULATING HORMONE - FOLIC ACID 1 MG TABLET - METOCLOPRAMIDE 10 MG TABLET - T4 FREE/FREE THYROXINE - Will stop PNV and start folic acid - Offered outpatient IV hydration but would like to try this first. If no improvement to call -NOB in one week and can follow up at that time. 2. 7 weeks gestation of - ICD9: V22.2, ICD10: Z3A.01 - FAMOTIDINE 40 MG TABLET - COMPREHENSIVE METABOLIC PANEL - THYROID STIMULATING HORMONE - FOLIC ACID 1 MG TABLET - METOCLOPRAMIDE 10 MG TABLET 3. History of hypothyroidism - ICD9: V12.29, ICD10: Z86.39 - T4 FREE/FREE THYROXINE - THYROID STIMULATING HORMONE Ethel Ruiz APRN.CNM I spent 20 minutes in the visit, with more than 50% of the total nvry-ir-jada time of the visit in counseling / coordination of care. documented in this [facility] History of Present illness Narrative* Castro Heart MD - 03/29/2024 5:00 PM EDT Subjective Patient ID: Ramona Wahl is a 33 y.o. female who presents for Follow-up (Re establish and co right ear plugged). Here to reestablish Co ear plug right mor shirin left Review of Systems Constitutional: Negative. Negative for chills and fever. HENT: Negative. Negative for congestion. Eyes: Negative. Negative for discharge. Respiratory: Negative. Negative for cough, shortness of breath and wheezing. Cardiovascular: Negative. Negative for chest pain, palpitations and leg swelling. Gastrointestinal: Negative. Negative for abdominal distention, abdominal pain, constipation, diarrhea, nausea and vomiting. Endocrine: Negative. Genitourinary: Negative. Negative for dysuria and urgency. Musculoskeletal: Negative. Negative for back pain, joint swelling and neck stiffness. Skin: Negative. Negative for rash. Allergic/Immunologic: Negative. Negative for immunocompromised state. Neurological: Negative. Negative for light-headedness, numbness and headaches. Hematological: Negative. Negative for adenopathy. Psychiatric/Behavioral: Negative. Negative for agitation, behavioral problems and confusion. All other systems reviewed and are negative. Objective Physical Exam Vitals reviewed. Constitutional: General: She is not in acute distress. Appearance: Normal appearance. HENT: Head: Normocephalic and atraumatic. Left Ear: There is impacted cerumen. Ears: Comments: Right ear partially impacted Nose: Nose normal. Eyes: Conjunctiva/sclera: Conjunctivae normal. Pupils: Pupils are equal, round, and reactive to light. Neck: Vascular: No carotid bruit. Cardiovascular: Rate and Rhythm: Normal rate and regular rhythm. Pulses: Normal pulses. Heart sounds: No gallop. Pulmonary: Effort: Pulmonary effort is normal. No respiratory distress. Breath sounds: Normal breath sounds. No wheezing. Abdominal: General: Bowel sounds are normal. Palpations: Abdomen is soft. Tenderness: There is no abdominal tenderness. Musculoskeletal: General: Normal range of motion. Cervical back: Normal range of motion. No rigidity. Lymphadenopathy: Cervical: No cervical adenopathy. Skin: General: Skin is warm. Findings: No rash. Neurological: General: No focal deficit present. Mental Status: She is alert and oriented to person, place, and time. Psychiatric: Mood and Affect: Mood normal. Behavior: Behavior normal. BP 100/67 (BP Location: Right arm, Patient Position: Sitting) Pulse 82 Ht 1.6 m (5' 3) Wt 53.5 kg (118 lb) BMI 20.90 kg/m No results found for: CBCDIF, CMPLAS, PSA, LASA, HGBA1C Assessment/Plan Problem List Items Addressed This Visit None Visit Diagnoses Impacted cerumen of left ear - Primary Ear lavage rc Messer prn [facility] Work Phone: [phone] 688-167009-13-2024 History of Present illness Narrative* Phillip Castro MD - 02/13/2024 8:19 AM EDT Patient declined speech/language therapist. The sensitive examination was discussed with the Patient or Patient's Authorized [employer] Source Heat Pump Technician. Asapplicable, any other physician, advance practice provider, medical student, or other health professional student that will be observing or involved in the sensitive examination for educational or training purposes was discussed with the Patient or Authorized [employer] Source Heat Pump Technician. The Patient or Authorized Ground Source Heat Pump Technician has agreed to proceed with the sensitive examination. (Sensitive examination includes inspection and/or palpation of the breasts, pelvis, prostate and anorectal regions) Ramona is a 33 year old who presents for an annual gynecologic exam without complaints. Menses: cycles every 28 days with 7-8 days bleeding Contraception: none HPV vaccine: Unknown Last Pap: 04/08/2022 normal HPV: N/A History of abnormal pap: No Last mammogram: never Sexually active: Yes OB History T2 L2 SAB0 IAB0 Ectopic0 Multiple0 Live Births2 Comment: 1 vaginal delivery Slicing Machine Feeder History LMP: 01/20/2024, Unknown Age at Menarche: Age at First : Age at Menopause: Slicing Machine Feeder History Comments: Sexual Activity: Yes; Male Contraception: No contraception data on record PAST MEDICAL HISTORY Diagnosis Date anxiety Hyperemesis gravidarum Hypothyroid infertility treatment Infertility, female PCOS (polycystic ovarian syndrome) PAST SURGICAL HISTORY Procedure Laterality Date ADENOIDECTOMY HX EXTRACTION ERUPTED TOOTH/EXR REMOVAL GALLBLADDER 10/2021 FAMILY HISTORY Problem Relation Age of Onset Heart disease Mother Diabetes Mother other (pre-diabetes) Mother Anxiety disorder Father No Known Problems Sister Diabetes Maternal Grandmother Heart Attack Maternal Grandfather Prostate Cancer Maternal Grandfather No Known Problems Paternal Grandmother Prostate Cancer Paternal Grandfather No Known Problems Daughter SOCIAL HISTORY Social History Tobacco Use Smoking status: Never Smokeless tobacco: Never Vaping Use Vaping status: Never Used Substance Use Topics Alcohol use: Never Drug use: Never REVIEW OF SYSTEMS Abdomen: No abdominal pain, nausea, vomiting, diarrhea, or constipation. No bloating, early satiety, indigestion, or increased flatulence. Bladder: No dysuria, gross hematuria, urinary frequency, urinary urgency, or incontinence. Breast: No breast lumps, nipple d/c, overlying skin changes, redness or skin retraction. Allergies and current medication updated:Yes SENSITIVE EXAM: The sensitive examination was discussed with the Patient or Patient's Authorized Ground Source Heat Pump Technician. As applicable, any other physician, advance practice provider, medical student, or other health professional student that will be observing or involved in the sensitive examination for educational or training purposes was discussed with the Patient or Authorized Ground Source Heat Pump Technician. The Patient or Authorized Ground Source Heat Pump Technician has agreed to proceed with the sensitive examination. (Sensitive examination includes inspection and/or palpation of the breasts, pelvis, prostate and anorectal regions). EXAM: BP 112/64 Ht 5' 2.323 (1.58m) Wt 120 lb (54.4kg) LMP 01/20/2024 BMI 21.72 kg/(m^2). GENERAL: pleasant, female in no apparent distress HEENT: Normocephalic and atraumatic NECK: Supple, full range of motion, no adenopathy, and thyroid normal DERMATOLOGY: Normal and without lesions BREAST: soft, non-tender, symmetric, no dominant mass, normal nipple-areolar complex, no lymphadenopathy, and no nipple discharge CHEST: Normal inspiratory effort ABDOMEN: soft, non-tender, and no masses PELVIC: external genitalia normal, normal Bartholin's glands, urethra, [place]'s glands, no vulvar lesions, no cervical lesions, good vaginal support, physiologic discharge present, normal appearing perineal body and perianal region BIMANUAL: uterus normal size, shape and consistency, no adnexal masses, and non-tender RECTOVAGINAL: deferred. NEURO: exam grossly non-focal EXTREMITIES: normal ASSESSMENT/PLAN: 1) Health maintenance: Pap/HPV up to date. Nutrition, exercise and routine health maintenance exams reviewed. HPV vaccine: discussed. 2) Contraception: natural family planning and condoms. Contraceptive options reviewed and information provided. 3) STD screening: Declined STD check. 4) Follow up one year or sooner as needed Phillip Castro DO documented in this [facility]08[facility]23 History of Present illness Narrative* Phillip Castro MD - 01/02/2023 2:49 PM EDT EARLY VISIT Ramona Wahl is a 32 year old here for 2 week visit. Delivery Summary: 12/19/2022 ROS: General: Denies any fever or chills Hypertension Screening: Headache? Yes. Was it successfully treated with Tylenol? When napping Visual Changes? Yes. Some spotting vision, goes away with nap Epigastric Pain? No Increased Swelling? No Taking any BP medications at home? No If applicable, monitoring BP at home? (If Yes, include results) NA Mood: normal Depression: denies symptoms of depression. OB Depression and Anxiety Screening- This Encounter (since 01/01/2023) Over the past 2 weeks have you felt down, depressed, or hopeless? Negative Over the past two weeks, have you felt little interest or pleasure in doing things? Negative Feeling nervous, anxious or on edge 0-Not at all Not being able to stop or control worrying 0-Not al all Anxiety Pre-Screening Total (If >/= 3 additional questions will be reviewed) 0 Feeding: Breast and bottle feeding problems: Has some problems with latching Bladder: No dysuria, gross hematuria, urinary frequency, urinary urgency, or incontinence Bowel symptoms: Negative for abdominal discomfort, blood in stools or black stools and change in bowel habits Abdomen: N/A Bleeding: light flow Bottom and Perineum: No issues Sleep: no sleep concerns, feels rested [place] since delivery: Not resumed Emotional support: Yes Exercise: N/A Other issues: None PHYSICAL EXAMINATION: BP 112/70 Wt 123 lb (55.8 kg) LMP 03/06/2022 (Exact Date) Yes BMI 21.79 kg/m General: pleasant,female in no apparent distress, A&O x 3. Skin warm and intact. Breast: Deferred Abdomen: Deferred /Incision: N/A Pelvic: Deferred Bimanual: Deferred ASSESSMENT AND PLAN: 32 year old status post with normal course. Contraception plan: vasectomy. Reinforced 6-week pelvic rest. Encouraged condom usage should patient deviate. Education: resources provided - see MA/RN note Follow up: Return to Clinic for 6 week visit and as needed Phillip Castro DO [facility] History of Present illness Narrative* Crystal Baxter MD - 12/16/2022 3:25 PM EDT NST SUMMARY PROVIDER ASSESSMENT AND INTERPRETATION Ramona Wahl is a 32 year old female, , who is at 40w5d with an DEAN of 12/11/2022, by Last Menstrual Period dating method. Indications for NST: Other: 40 weeks gestation , IOL scheduled 41.1 weeks Baseline: 135 Variability: Moderate Accelerations: Present 15 X 15 Decelerations: None Contractions: TOCO: Irregular Interpretation: Category I and Reactive SIGNATURE: Crystal Beasley MD [facility] Miscellaneous Notes* Quick Notes - Crystal Baxter MD - 12/16/2022 3:24 PM EDT DM- Pt doing well today. Denies Vaginal Bleeding, Leaking fluid, or contractions. Pt reports good movement. IOL was canceled today- rescheduled for 41.1 weeks- STEPHANIE today on bedside ultrasound 14cm, NST today reactive cat 1. Pt declines membrane sweep today. Crystal Beasley MD [facility] Instructions* Patient Instructions* Haley Junior Ma - 12/16/2022 2:34 PM EDT SEQUENTIAL SCREENINGS [facility] offers sequential screenings for women who are interested in screenings for chromosomal abnormalities and certain defects during a . The sequential screen combinesultrasound and blood tests to determine the risk of chromosomal abnormalities, including Down's Syndrome (Trisomy 21) and Trisomy 18, as well as open neural tube defects including spina bifida. Ultrasound examination is performed between 11 weeks and 13 weeks gestational age. Blood tests are drawn after the ultrasound and again later in the between 15 and 21 weeks gestational age. Please let your physician know if you are interested in this testing. It will require an appointment withour quality systems technician. This is not an ultrasound performed by a physician in our office during a routine visit. SIGNS AND SYMPTOMS OF LABOR 1. Contractions every 10 minutes or more often 2. Clear, pink, or brownish fluid (water) leaking from vagina 3. Feeling that baby is pushing down, pressure 4. Low, dull backache 5. Cramps that feel like a period 6. Cramps with or without diarrhea If you notice any of the above symptoms, contact our office at [phone] and ask to speak with anurse. After hours, you can call doctors registry at [phone] OR call [facility] at [phone] ask to have the doctor deckhand sponge boat paged. If you consider this an emergency, dial 9-1-4 or go to your nearest emergency department. NEED HELP? Are you dealing with a violent or abusive relationship? Are you a victim of rape or sexual assult? Call [facility] ([place]) 24 hour Crisis Hotline: 183.474.5337 or 364-532-5356. MANUAL Your Guide to a Healthy manual is now on-line. Visit [email or web address] to download your free copy documented [facility] this [facility]23 Miscellaneous Notes* Quick Notes - Crystal Baxter MD - 12/13/2022 11:10 AM EDT DM- Pt doing well today. Denies Vaginal Bleeding, Leaking fluid, or contractions. Pt reports good movement. IOL scheduled for next week. Membranes swept per patient request. Kick counts and labor reviewed. Crystal Beasley MD documented in [facility]23 Instructions* Patient Instructions* Haley Junior Ma - 12/13/2022 9:58 AM EDT SEQUENTIAL SCREENINGS [facility] offers sequential screenings for women who are interested in screenings for chromosomal abnormalities and certain defects during a . The sequential screen combinesultrasound and blood tests to determine the risk of chromosomal abnormalities, including Down's Syndrome (Trisomy 21) and Trisomy 18, as well as open neural tube defects including spina bifida. Ultrasound examination is performed between 11 weeks and 13 weeks gestational age. Blood tests are drawn after the ultrasound and again later in the between 15 and 21 weeks gestational age. Please let your physician know if you are interested in this testing. It will require an appointment withour quality systems technician. This is not an ultrasound performed by a physician in our office during a routine visit. SIGNS AND SYMPTOMS OF LABOR 1. Contractions every 10 minutes or more often 2. Clear, pink, or brownish fluid (water) leaking from vagina 3. Feeling that baby is pushing down, pressure 4. Low, dull backache 5. Cramps that feel like a period 6. Cramps with or without diarrhea If you notice any of the above symptoms, contact our office at [phone] and ask to speak with anurse. After hours, you can call [employer] registry at [phone] OR call [facility] at [phone] ask to have the doctor deckhand sponge boat paged. If you consider this an emergency, dial 9-1- or go to your nearest emergency department. NEED HELP? Are you dealing with a violent or abusive relationship? Are you a victim of rape or sexual assult? Call [facility] ([place]) 24 hour Crisis Hotline: 462.432.7608 or 651-670-5800. MANUAL Your Guide to a Healthy manual is now on-line. Visit [email or web address] to download your free copy documented in this [facility]07[facility]-2023 Miscellaneous Notes* Quick Notes - Karoline Bautista MD - 12/09/2022 10:20 AM EDT RR- No VB/LOF. No regular ctxws. No signif edema. Denies Freeman or visual changes. D/w her options, elects for membrane sweep today. F/u in 4-5 days and if not delivered likely would plan approx 41 week induction. Karoline Bautista MD documented in this [facility]07-10-2023 Instructions* Patient Instructions* Luciana Al Ma - 12/09/2022 10:02 AM EDT SEQUENTIAL SCREENINGS [facility] offers sequential screenings for women who are interested in screenings for chromosomal abnormalities and certain defects during a . The sequential screen combinesultrasound and blood tests to determine the risk of chromosomal abnormalities, including Down's Syndrome (Trisomy 21) and Trisomy 18, as well as open neural tube defects including spina bifida. Ultrasound examination is performed between 11 weeks and 13 weeks gestational age. Blood tests are drawn after the ultrasound and again later in the between 15 and 21 weeks gestational age. Please let your physician know if you are interested in this testing. It will require an appointment withour quality systems technician. This is not an ultrasound performed by a physician in our office during a routine visit. SIGNS AND SYMPTOMS OF LABOR 1. Contractions every 10 minutes or more often 2. Clear, pink, or brownish fluid (water) leaking from vagina 3. Feeling that baby is pushing down, pressure 4. Low, dull backache 5. Cramps that feel like a period 6. Cramps with or without diarrhea If you notice any of the above symptoms, contact our office at [phone] and ask to speak with anurse. After hours, you can call doctors registry at [phone] OR call [facility] at [phone] ask to have the doctor deckhand sponge boat paged. If you consider this an emergency, dial 9-1-5 or go to your nearest emergency department. NEED HELP? Are you dealing with a violent or abusive relationship? Are you a victim of rape or sexual assult? Call [facility] ([place]) 24 hour Crisis Hotline: 914.276.7323 or 940-500-1023. MANUAL Your Guide to a Healthy manual is now on-line. Visit [email or web address] to download your free copy documented in this encounterE[facility]06[facility]26-[facility]23 Miscellaneous Notes* Quick Notes - Ethel Ruiz APRN.CNM - 11/25/2022 4:20 PM EDT JAIR-S: Ramona Wahl is a 32 year old female who presents at 37w5d with DEAN:12/11/2022, by Last Menstrual Period for a routine visit.Good FM. Denies headache, visual changes, chest pain, shortness of breath, vaginal bleeding, leakage of fluid, or dysuria. Feeling well, no complaints. O: See flow sheet Gen: No apparent distress Abd: Gravid, nontender ASSESSMENT/PLAN: 1. 37 weeks gestation of P: 1) Labor instructions reviewed and when to call 2) RTO in one week Ethel Ruiz APRN.CNM documented in this encounterE[facility]06-26-2023 Instructions* Patient Instructions* Joe Farooq Cma - 11/25/2022 11:07 AM EDT SEQUENTIAL SCREENINGS The [facility] offers sequential screenings for women who are interested in screenings for chromosomal abnormalities and certain defects during a . The sequential screen combinesultrasound and blood tests to determine the risk of chromosomal abnormalities, including Down's Syndrome (Trisomy 21) and Trisomy 18, as well as open neural tube defects including spina bifida. Ultrasound examination is performed between 11 weeks and 13 weeks gestational age. Blood tests are drawn after the ultrasound and again later in the between 15 and 21 weeks gestational age. Please let your physician know if you are interested in this testing. It will require an appointment withour quality systems technician. This is not an ultrasound performed by a physician in our office during a routine visit. SIGNS AND SYMPTOMS OF LABOR 1. Contractions every 10 minutes or more often 2. Clear, pink, or brownish fluid (water) leaking from vagina 3. Feeling that baby is pushing down, pressure 4. Low, dull backache 5. Cramps that feel like a period 6. Cramps with or without diarrhea If you notice any of the above symptoms, contact our office at [phone] and ask to speak with anurse. After hours, you can call doctors registry at [phone] OR call [facility] at [phone] ask to have the doctor deckhand sponge boat paged. If you consider this an emergency, dial 5-9-5 or go to your nearest emergency department. NEED HELP? Are you dealing with a violent or abusive relationship? Are you a victim of rape or sexual assult? Call [facility] ([place]) 24 hour Crisis Hotline: 844.275.3334 or 738-652-3148. MANUAL Your Guide to a Healthy manual is now on-line. Visit [email or web address] to download your free copy documented in this encounterE[facility]06-20-2023 Miscellaneous Notes* Quick Notes - Ethel Ruiz APRN.CNM - 11/19/2022 8:24 AM EDT BENS: Ramona Wahl is a 32 year old female who presents at 36w6d with DEAN:12/11/2022, by Last Menstrual Period for a routine visit. Good FM. Denies headache, visual changes, chest pain, shortness of breath, vaginal bleeding, leakage of fluid, or dysuria. Feeling well, no complaints. O: See flow sheet Gen: No apparent distress Abd: Gravid, nontender S=D, cephalic, 24 lb TWG Limited bedside US confirms cephalic presentation. ASSESSMENT/PLAN: 1. 36 weeks gestation of P: 1) PTL precautions reviewed and when to call 2) RTO in one week 3) GBS today 4) Reviewed eating dates for labor support. Ethel Ruiz APRN.CNM documented in this encounterE[facility]06-20-2023 Instructions* Patient Instructions* Ethel Ruiz APRN.CNM - 11/19/2022 8:10 AM EDT Images from the original note were not included. Preparing for labor: Eat dates to promote spontaneous labor! Has an oxytocin-like effect on the body, leading to increased sensitivity of the uterus. Stimulates uterine contractions. Reduces hemorrhage the way oxytocin does. Date fruit contains saturated and unsaturated fatty acids such as oleic, linoleic, and linolenic acids, which are involved in saving and supplying energy and construction of prostaglandins. In addition, serotonin, tannin, and calcium in date fruit contribute to the contraction of smooth muscles of the uterus. Date fruit also has a laxative effect, which stimulates uterine contractions. Six dates per day is the magic number--provided that you re eating smaller deglet noor dates. Deglet noor dates are about 1 inch long. Medjool dates can be up to 2 inches long. If you re eating medjool dates, you only need about 3 dates to reach the 75 grams recommended in the studies. Not sure which type of date you have in your refrigerator? It s probably a deglet noor. How to Eat Dates During Dates are a healthy and delicious snack, so how can you add them to your diet? Add dates during in this awesome oatmeal recipe. Add dates to replace sugar in your favorite recipe or to chino your homemade almond milk. Use dates and nuts to make an easy pie crust in the food service worker. Add soaked dates to homemade nut butter for a sweet treat. Add dates to chino homemade salad dressing. Add dates during easily with these yummy (paleo friendly) bars made from dates. What Is Red Raspberry [place] Tea? Red raspberry leaf tea comes from the leaves of the red raspberry plant. This herbal tea has been used for centuries to support respiratory, digestive and uterine health, particularly during and childbearing years. While usually known as a female herb, red raspberry leaf tea can also helpsupport the prostate and various stomach ailments in children. How It Can Help and Red raspberry leaf tea can help to make labor faster and reduce complications and interventions during . One study found that women who consumed RRL tea regularly are less likely to go overdue or give prematurely. These women may also be less likely to receive an artificial rupture of their membranes or require a section, forceps, or vacuum than the women in the control group. Red raspberry leaf has many other benefits to , , and too. How Much Red Raspberry [place] Tea to Drink? With your doctor or psychologist clinical s approval, start with 1 cup of red raspberry leaf tea per day startingin the second trimester. Watch for any uterine cramping or other reactions. If you don t experienceany, you can talk to your healthcare provider about increasing to 2 cups per day. Again, watch for any uterine cramping. If you notice any, cut back on your dosage for two weeks and try again. Keep in mind, some moms have irritable uteruses and can only drink red raspberry leaf tea once theyreach their due date because of uterine cramping. Is Red Raspberry [place] Tea the Same as Raspberry [place] Tea? How About Plain Old Raspberry Tea? Sometimes. You really need to look at the ingredients to be sure. Note that there is no difference between red raspberry leaf and raspberry leaf. PressPad or [employer]ociety Raspberry [place] Tea are two good brands. The red raspberry leaf teas that we recommend are 100% red raspberry leaf. Other teas labeled as raspberry are often a blend of rosehips, hibiscus, raspberry leaves, and raspberry flavor. So they maynot be as effective. The teas to avoid are raspberry-flavored herbal teas, which may have ingredients like hibiscus, mic hips, apples, elderberries, natural and artificial raspberry flavors. Teas like this don t containraspberry leaf at all and thus won t offer any of the potential benefits of RRLT outlined in this article. [employer] www.[employer] I named this 'circuit' after my friend Laurencemer Cesar, who shared and discussed it with me when I was working with a client whose labor seemed to be stalled out and no longer progressing... This circuit is useful to help get the baby lined up, ideally, in the Left Occiput Anterior (ATA) Position, both before labor begins and when some corrections need to be done during labor. Prenatally, this position set can help to rotate a baby. As a natural method of induction, this can help get things going if baby just needed a gentle nudge of position to set things off. To the best of my knowledge, this group of positions will not hurt a baby that is already lined up correctly. - Jacqui Kirk Before you Begin..... This circuit takes at least 90 minutes to complete so clear your schedule and make mental preparations so you can relax in your environment. The second step requires a lot of pillows so gather them up before beginning Before starting, you should empty your bladder! Have a nice drink nearby, and make sure it has a straw! If you are having contractions, this circuit should bedone through contractions, try not to change positions between steps Step One: Open-knee Chest Stay in this position for 30 minutes, start in cat/cow, then drop your chest as low as you can to the bed or the floor and your bottom as high as you can. Knees should be fairly wide apart, and the angle between the torso/thighs should be wider than 90 degrees. Wiggle around, prop with lots of pillows and use this time to get totally relaxed.This position allows the baby to scoot out of the pelvis a bit and gives them room to rotate, shift their head position, etc. If the person finds it helpful,careful positioning with a rebozo under the belly, with gentle tension from a support person behindcan help maintain this position for the full 30minutes. Step Two: Exaggerated Left Side Lying Roll to your left side, bringing your top leg as high as possible and keeping your bottom leg straight. Roll forward as much as possible,again using a lot of pillows. Sink into the bed and relax somemore. If you fall asleep, that's totally okay and you can stay there! If not, stay here for at least another half an hour. Try and get your top right leg up towards your head and get as rolled over onto your belly as much as possible. If you repeat the circuit during labor, try alternating left and right sides. We know the photo the left is actually right side... just flip the image in your head. Step Three: Moving and Lunges Lunge, walk stairs facing sideways, 2 at a time, (have a dietary internship downstairs of you!), take a walk outside with one foot on the curb and the other on the street, sit on a ball and hula- anything that's upright and putting your pelvis in open, asymmetrical positions. Spend at least 30 minutes doing this one as well to give your baby a chance to move down. If you are lunging or stair or curb walking, you should lunge/walk/go up stairs in the direction that feels better to you. The sears with the lunge is that the toes of the higher leg and mom's belly button should be at right angles. Do not lunge over your knee, that closes the pelvis. Laurence Stevens Arsenio: Circuit Creator - www.s[facility] charlesCodewarscass medical centercollSilent Circle.[employer] Jacqui Kirk CD, BDT (NAHED), LCCE, FACCE: Supporting Content - [email or web address] Jenny Lin: Photography - www.[email or web address] Kylah Vidales CD/CDT (JETT): Print and Transfer Engineer - www.[employer] www.[employer] What is my perineum? Your perineum is the area between your vaginal opening and your rectum. This area stretches when you give , and sometimes the perineum or vagina will tear as your baby is being born. If your health care provider cuts an episiotomy during your , it is this area that is cut. You may need stitches after your baby is born if you have a tear or have an episiotomy. How often do perineal tears occur? About 4 to 8 out of every 10 women who give vaginally will have some tear in their perineum. About two?thirds of these women will need some stitches. Is an episiotomy necessary? An episiotomy is not necessary for most women. Although they were common before the , they arerarely done today. However, sometimes your health care provider may recommend an episiotomy just asyour baby is being born. For example, an episiotomy can help if your baby needs to be born very quickly. You can ask your health care provider to talk with you about episiotomy during a visit. Can my health care provider do anything to help me avoid a tear? There are many ways that your health care provider can help to reduce your chance of tearing. For example, your provider may: Apply a warm compress to the perineum just before the baby comes out Recommend specific positions for you to be in as you push Provide gentle downward pressure on the baby's head as your baby is coming out Ask that you push your baby out between contractions Avoid the use of forceps or a vacuum to help your baby be born Can I do anything before the to help me avoid a tear? Preventing a perineal tear that occurs during has been the subject of many research studies. Several studies have found that perineal massage during the last weeks of can reduce tearing at for women giving for the first time. This massage--using 2 fingers to stretch yourperineal tissues--is performed by you, in your home, once or twice a week, for the last 4 to 6 weeks of your . The next page of this handout tells how to do this massage. For every 15 women who do perineal massage, one woman will avoid an episiotomy and perineal tearing that needs stitches. While you massage, you can practice relaxing the muscles in your perineum. This can help you prepare for the stretching, burning feeling you may have when your baby's head is born. Relaxing this area during can help prevent tearing. Does perineal massage in help all women? Massage seems to work better for some women than others. Women having their first baby, women who are 30 years or older, and women who have had episiotomies before have fewer tears and less severe tears when perineal massage is done during the last weeks of . Can my partner help? Yes! Many women find that it is easier to have their partners do this massage. See the instructionsfor perineal massage on the next page for more information. Are there any risks to perineal massage during ? Not that we know of. It is free. It doesn't hurt. It is easy to do. And most women don't mind doingit. However, you should not stretch the perineum until it hurts or massage too often, which can hurt the skin in that area. Do not do perineal massage more than once or twice a week. Women who do it more often do not have a lower risk of perineal tearing. Check with your health care provider beforebeginning perineal massage. And, if you believe your amniotic fluid (bag of handy) is leaking, check with your health care provider before putting anything in your vagina. Instructions for Perineal Massage During Wash your hands well, and make sure your fingernails are short. Relax in a private place where you can rest with your legs open and your knees bent. Some women like to lean on pillows for back support. Lubricate your thumbs and the perineal tissues. Use a lubricant such as vitamin E oil, coconut oil,almond oil, or any vegetable oil used for cooking--like olive oil. You may also try a water?solublejelly, such as K?Y jelly, or your body's natural vaginal lubricant. Do not use baby oil, mineral oil, or petroleum jelly (Vaseline). Place your thumbs about 1 to 1.5 inches inside your vagina (see Figure 1). Press down (toward the anus) and to the sides until you feel a slight burning, stretching sensation. Hold that stretched position for 1 or 2 minutes. With your thumbs, slowly massage the lower half of the vagina using a U?shaped movement for 2 to 3 minutes at most. Concentrate on relaxing your muscles. This is a good time to practice slow, deep breathing techniques. Partners: If your partner is doing the perineal massage, follow the same basic instructions above. However, your partner should use his or her index fingers to do the massage (instead of thumbs). Thesame side?to?side, U?shaped, downward pressure method should be used. Good communication is important--be sure to tell your partner if you have too much pain or burning! Figure 1 1 Perineal Massage [employer] Grade Level: 7.2 Approved June 2015. This handout replaces Perineal Massage in published in Volume 50, Issue 1, Jun/Jul 2004 SIGNS AND SYMPTOMS OF LABOR 1. Contractions every 10 minutes or more often 2. Clear, pink, or brownish fluid (water) leaking from vagina 3. Feeling that baby is pushing down, pressure 4. Low, dull backache 5. Cramps that feel like a period 6. Cramps with or without diarrhea If you notice any of the above symptoms, contact our office at [phone] and ask to speak with anurse. After hours, you can call doctors registry at [phone] OR call [facility] at [phone] ask to have the doctor deckhand sponge boat paged. If you consider this an emergency, dial 9-1-7 or go to your nearest emergency department. NEED HELP? Are you dealing with a violent or abusive relationship? Are you a victim of rape or sexual assult? Call [facility] ([place]) 24 hour Crisis Hotline: 774.390.5994 or 378-396-8905. MANUAL Your Guide to a Healthy manual is now on-line. Visit [email or web address] to download your free copy documented in this encounterElyria [facility] Hospital06-05-2023 Miscellaneous Notes* Quick Notes - Phillip Castro MD - 11/04/2022 10:47 AM EDT SW- Pt doing well. No ctx, vb, lof. Good FM PE: Gen- NAD, well appearing Abd- Soft, gravid, NT Ext- No edema See flowsheet A/p 34 wk gestation - Discussed PTL precautions and FKC's - RTO 2 wks for GBS Phillip Castro DO documented in this encounterElyria [facility] Hospital06-05-2023 Instructions* Patient Instructions* Seema Rose MA - 11/04/2022 10:34 AM EDT SEQUENTIAL SCREENINGS [facility] offers sequential screenings for women who are interested in screenings for chromosomal abnormalities and certain defects during a . The sequential screen combinesultrasound and blood tests to determine the risk of chromosomal abnormalities, including Down's Syndrome (Trisomy 21) and Trisomy 18, as well as open neural tube defects including spina bifida. Ultrasound examination is performed between 11 weeks and 13 weeks gestational age. Blood tests are drawn after the ultrasound and again later in the between 15 and 21 weeks gestational age. Please let your physician know if you are interested in this testing. It will require an appointment withour quality systems technician. This is not an ultrasound performed by a physician in our office during a routine visit. SIGNS AND SYMPTOMS OF LABOR 1. Contractions every 10 minutes or more often 2. Clear, pink, or brownish fluid (water) leaking from vagina 3. Feeling that baby is pushing down, pressure 4. Low, dull backache 5. Cramps that feel like a period 6. Cramps with or without diarrhea If you notice any of the above symptoms, contact our office at [phone] and ask to speak with anurse. After hours, you can call doctors registry at [phone] OR call [facility] at [phone] ask to have the doctor deckhand sponge boat paged. If you consider this an emergency, dial 9-8-8 or go to your nearest emergency department. NEED HELP? Are you dealing with a violent or abusive relationship? Are you a victim of rape or sexual assult? Call [facility] ([facility] 24 hour Crisis Hotline: 236.535.1101 or 750-637-3201. MANUAL Your Guide to a Healthy manual is now on-line. Visit [email or web address] to download your free copy documented in this encounterElyria [facility] Hospital05-04-2023 Miscellaneous Notes* Quick Notes - Brijesh Biswas MD - 10/03/2022 2:59 PM EDT KJ - No VB/LOF/ctxs. Reports good FM. A&P: Reviewed PTL & FM precautions Brijesh Biswas MD documented in this encounterElyria Memorial Hospital05-04-2023 Instructions* Patient Instructions* Luciana Al Ma - 10/03/2022 2:37 PM EDT SEQUENTIAL SCREENINGS The [facility] offers sequential screenings for women who are interested in screenings for chromosomal abnormalities and certain defects during a . The sequential screen combinesultrasound and blood tests to determine the risk of chromosomal abnormalities, including Down's Syndrome (Trisomy 21) and Trisomy 18, as well as open neural tube defects including spina bifida. Ultrasound examination is performed between 11 weeks and 13 weeks gestational age. Blood tests are drawn after the ultrasound and again later in the between 15 and 21 weeks gestational age. Please let your physician know if you are interested in this testing. It will require an appointment withour quality systems technician. This is not an ultrasound performed by a physician in our office during a routine visit. SIGNS AND SYMPTOMS OF LABOR 1. Contractions every 10 minutes or more often 2. Clear, pink, or brownish fluid (water) leaking from vagina 3. Feeling that baby is pushing down, pressure 4. Low, dull backache 5. Cramps that feel like a period 6. Cramps with or without diarrhea If you notice any of the above symptoms, contact our office at [phone] and ask to speak with anurse. After hours, you can call doctors registry at [phone] OR call [facility] at [phone] ask to have the doctor deckhand sponge boat paged. If you consider this an emergency, dial 9--1 or go to your nearest emergency department. NEED HELP? Are you dealing with a violent or abusive relationship? Are you a victim of rape or sexual assult? Call [facility] ([place]) 24 hour Crisis Hotline: 894.723.9655 or 681-136-1261. MANUAL Your Guide to a Healthy manual is now on-line. Visit [email or web address] to download your free copy documented in this encounterElyria [facility] Hospital04-21-2023 Miscellaneous Notes* Quick Notes - Brijesh Biswas MD - 09/20/2022 11:12 AM EDT KJ - No VB/LOF/ctxs. Reports good FM. A&P: 28wk labs Tdap PPBC - declines LARC. considering vasectomy. Reviewed PTL & FM precautions Brijesh Biswas MD documented in this encounterElyria Memorial Hospital04-21-2023 History of Present illness Narrative* Cecelia Pardo Ma - 09/20/2022 11:03 AM EDT Patient identified by name and date of . Ramona Meyers Trevinday presents today for a vaccination of Tdap. Patient denies an allergy to latex: yes Patient denies a severe (life-threatening) allergy to a previous dose of Tdap, DTP, DTaP, DT or Td vaccine. Yes Patient denies history of epilepsy or neurological problems: Yes Patient is afebrile and denies being moderately or severely ill: Yes Patient denies history of Guillain-[place] Syndrome (a severe paralytic illness): Yes Tdap Adacel injection was given without incident. See immunizations for details of immunizations administered today. VIS sheet provided: Yes Provider Dr Biswas was present in office at time of injection. Cecelia Pardo Ma documented in this encounterElyria Memorial Hospital04-21-2023 Instructions* Patient Instructions* Cecelia Pardo Ma - 09/20/2022 10:55 AM EDT SEQUENTIAL SCREENINGS The [facility] offers sequential screenings for women who are interested in screenings for chromosomal abnormalities and certain defects during a . The sequential screen combinesultrasound and blood tests to determine the risk of chromosomal abnormalities, including Down's Syndrome (Trisomy 21) and Trisomy 18, as well as open neural tube defects including spina bifida. Ultrasound examination is performed between 11 weeks and 13 weeks gestational age. Blood tests are drawn after the ultrasound and again later in the between 15 and 21 weeks gestational age. Please let your physician know if you are interested in this testing. It will require an appointment withour quality systems technician. This is not an ultrasound performed by a physician in our office during a routine visit. SIGNS AND SYMPTOMS OF LABOR 1. Contractions every 10 minutes or more often 2. Clear, pink, or brownish fluid (water) leaking from vagina 3. Feeling that baby is pushing down, pressure 4. Low, dull backache 5. Cramps that feel like a period 6. Cramps with or without diarrhea If you notice any of the above symptoms, contact our office at [phone] and ask to speak with anurse. After hours, you can call doctors registry at [phone] OR call [facility] at [phone] ask to have the doctor deckhand sponge boat paged. If you consider this an emergency, dial 9-1-4 or go to your nearest emergency department. NEED HELP? Are you dealing with a violent or abusive relationship? Are you a victim of rape or sexual assult? Call [facility] ([place]) 24 hour Crisis Hotline: 361.755.5055 or 209-941-6225. MANUAL Your Guide to a Healthy manual is now on-line. Visit [email or web address] to download your free copy documented in this encounterElyria Memorial Hospital04-06-2023 Miscellaneous Notes* Quick Notes - Karoline Bautista MD - 09/05/2022 10:11 AM EDT RR- VB No. LOF No. CTXS No. Movement: present. Other c/o: No. Had gastroenteritis last week but better now. N/V of improved Medication list reviewed. Physical Exam See Flow Sheet Abd: soft, nontender, gravid Ext: edema: Trace A/P 26w1d Estimated Date of Delivery: 12/11/22 Labs: 28 week labs next visit cont. PNV . Karoline Bautista M.D. documented in this encounterElyria Memorial Hospital04-06-2023 Instructions* Patient Instructions* Seema Rose MA - 09/05/2022 9:44 AM EDT SEQUENTIAL SCREENINGS The [facility] offers sequential screenings for women who are interested in screenings for chromosomal abnormalities and certain defects during a . The sequential screen combinesultrasound and blood tests to determine the risk of chromosomal abnormalities, including Down's Syndrome (Trisomy 21) and Trisomy 18, as well as open neural tube defects including spina bifida. Ultrasound examination is performed between 11 weeks and 13 weeks gestational age. Blood tests are drawn after the ultrasound and again later in the between 15 and 21 weeks gestational age. Please let your physician know if you are interested in this testing. It will require an appointment withour quality systems technician. This is not an ultrasound performed by a physician in our office during a routine visit. SIGNS AND SYMPTOMS OF LABOR 1. Contractions every 10 minutes or more often 2. Clear, pink, or brownish fluid (water) leaking from vagina 3. Feeling that baby is pushing down, pressure 4. Low, dull backache 5. Cramps that feel like a period 6. Cramps with or without diarrhea If you notice any of the above symptoms, contact our office at [phone] and ask to speak with anurse. After hours, you can call doctors registry at [phone] OR call [facility] at [phone] ask to have the doctor deckhand sponge boat paged. If you consider this an emergency, dial 9-1-1 or go to your nearest emergency department. NEED HELP? Are you dealing with a violent or abusive relationship? Are you a victim of rape or sexual assult? Call [facility] ([place]) 24 hour Crisis Hotline: 851.261.2371 or 180-841-7189. MANUAL Your Guide to a Healthy manual is now on-line. Visit [email or web address] to download your free copy documented in this encounterElyria Memorial Hospital03-29-[address] Ferris [facility] August 28, 2022 8:05pm Note Date/Time August 28, 2022 7:0 0pm [facility] Medical Records Department [address] [place] [address] Emergency Department Summary 08/28/22 MR#: [id number] Acct: [id number] Name: RAMONA WAHL Rep #:[id number] : 1990 32 From: Lucas Ferris DO PCP: Care Physician,No Primary Status :[facility] ER Location: ED HPI History of Present Illness Chief Complaint: Nausea/Vomiting/Diarrhea Informant: patient and parent Narrative Narrative: Patient is a 32-year-old female who is presenting to the ER today with chief complaint of nausea, vomiting, and loose stool for the past 3 days. Patient is 25 weeks . Patient is a G2, P1. Patient has no pelvic pain, no vaginalbleeding, no concerns about the baby. Patient's baby has still been moving veryvigorously. Patient is having intermittent lightheaded dizziness, no vertigo. Patient feels dehydrated. Patient says he has not been able to hold on any liquids for the past 3 days. Patient has Zofran ODT at home that she has been using with no relief in the past few days. Patient not been able to hold any liquids today, and she took 2 Zofran this morning. Patient is here for dehydration. No other acute complaints. No headache, neck pain. No chest painor shortness of breath. Patient's became sick on Friday as well with this patient. No other sick contacts the patient is aware of. [facility] Medical History Migraines Home Medications cephalexin 500 mg capsule 500 mg PO Q12 #10 CAPSULES 08/28/22 [Rx Last Taken Unknown] ondansetron 4 mg disintegrating tablet 4 mg PO Q8H PRN PRN Nausea #10 tabs 08/28/22 [Rx Last Taken Unknown] promethazine 25 mg rectal suppository 25 mg MO Q6H #6 ea 08/28/22 [Rx Last Taken Unknown] Allergy/AdvReac Type Severity Reaction Status Date / Time No Known Allergies Allergy Verified 08/28/22 17:26 Social History Smoking Status: Never smoker ROS ROS ED ROS Narrative REVIEW OF SYSTEMS: Unless otherwise stated in this report the patient's positiveand negative responses for review of systems for constitutional, eyes, ENT, cardiovascular, respiratory, gastrointestinal, neurological, , musculoskeletal, and integument systems and related systems to the presenting problem are either stated in the history of present illness or were not pertinent or were negative for the symptoms and/or complaints related to the presenting medical problem. EXAM Physical Exam Narrative Exam Narrative: Vital signs reviewed and patient is not hypoxic. General: The patient appears well and in no apparent distress. Patient is resting comfortably on cart. Not toxic, lethargic, or listless. Skin: Warm, dry, no pallor noted. There is no rash noted. Head: Normocephalic, atraumatic Eye: Normal conjunctiva, no drainage, EOMI. PERRL. Ears, Nose, Mouth, and Throat: oral mucosa is moist. Nares patent. Mouth withoutvesicles. Ear canals patent. Tm's without Erythema Cardiovascular: Regular Rate and Rhythm, no murmurs, gallops, or rubs Respiratory: Patient is in no distress, no accessory muscle use, lungs are clearto auscultation, no wheezing, rales or rhonchi Back: non-tender, no CVA tenderness bilaterally to percussion. NO CTLS midline or paracervicl tenderness to palpation. GI: Soft, patient has gravid uterus, states she is approximately 25 weeks . No tenderness to palpation to abdomen, no flank pain bilateral, no suprapubic tenderness to palpation, otherwise no tenderness to palpation, no masses appreciated. No rebound, guarding, or rigidity noted. Musculoskeletal: The patient has full range of motion of all extremities and joints with no difficulty. Patient has no motor, no sensory deficits. Neurological: A&O x4, normal speech, no focal neurological deficits. Psychiatric: Cooperative Const Vital Signs: 08/28/22 17:25 Temperature 97.5 F L Temperature Source Temporal Pulse Rate 98 Respiratory Rate 16 Blood Pressure 103/71 Blood Pressure Mean 81 Pulse Ox 97 Oxygen Delivery Method Room Air [facility] Lab Data Labs: Laboratory Results - last 24 hr 08/28/22 08/28/22 08/28/22 18:15 18:15 19:30 WBC 6.8 RBC 4.41 Hgb 14.2 Hct 41.7 MCV 94.6 MCH 32.2 H MCHC 34.1 RDW Std Deviation 48.2 H RDW Coeff of Haresh 13.8 Plt Count 234 MPV 9.5 Immature Gran % (Auto) 1.300 H Neut % (Auto) 74.4 H Lymph % (Auto) 13.5 L Casey % (Auto) 9.8 Eos % (Auto) 0.4 Baso % (Auto) 0.6 Absolute Neuts (auto) 5.0 Absolute Lymphs (auto) 0.91 Nucleated RBC % 0 Sodium 138 Potassium 3.5 Chloride 107 Carbon Dioxide 21.0 Anion Gap 10 BUN 16 Creatinine 0.62 Estim Creat Clear Calc 109.75 Est GFR (MDRD) Af Amer 147 Est GFR (MDRD) Non-Af 121 BUN/Creatinine Ratio 26.0 H Glucose 79 Calcium 8.5 Total Bilirubin 0.40 AST 16 ALT 16 Alkaline Phosphatase 65 Total Protein 6.2 L Albumin 2.6 L Globulin 3.6 Albumin/Globulin Ratio 0.7 L Lipase 91 Urine Color Yellow Urine Clarity Clear Urine pH 6.0 Ur Specific [place] 1.025 Urine Protein 30 H Urine Glucose (UA) Normal Urine Ketones 150 A* Urine Occult Blood 10 H Urine Nitrite Negative Urine Bilirubin 1 H Urine Urobilinogen 1 H Ur Leukocyte Esterase 25 H Urine RBC 0-5 SEEN Urine WBC 5-10 SEEN Ur Squamous Epith Cells 5-10 SEEN Urine Bacteria 1+ Urine Mucus 0 SEEN Differential Diagnosis Abdominal Pain: UTI Differential Diagnosis: Nausea, vomiting, diarrhea, flulike symptoms, UTI, Treatment and Re-Evaluation Comments:: Patient was given 1 L of IV fluids. Patient was given IV Zofran 4 mgand IV Reglan 10 mg. Patient has CBC, CMP and lipase along with urine done. Patient has been able to hold ice chips and and feels better after IV fluids andmedication. Patient's urine has bacteria, epithelial cells, along with dehydration and proteinuria. Patient will be placed on a 5-day course of Keflex, urine culture is ordered. Patient felt better after 1 L of IV fluids, she was given a second liter of IV fluids secondary to the ketones in her urine. Patient will be sent home with Phenergan suppositories to use as needed to help with nausea along with refill of her Zofran ODT. Patient be sent home with 5 days of Keflex prescription. Patient will follow-up with OB if any other acute concerns. No questions at discharge. Mother's been at bedside Discharge Plan Triage Chief Complaint: Nausea/Vomiting/Diarrhea ED Provider: Lucas Ferris Dx/Rx/DC Orders Clinical Impression: Nausea and vomiting, Diarrhea, , Dehydration, mild, UTI (urinary tractinfection) Instructions: ED Diet Vomiting Diarrhea, ED Vomiting and Diarrhea ... Prescriptions: New promethazine 25 mg suppository 25 mg MO Q6H Qty: 6 0RF ondansetron 4 mg tablet,disintegrating 4 mg PO Q8H PRN PRN (Reason: Nausea) Qty: 10 0RF cephalexin [cephalexin] 500 mg capsule 500 mg PO Q12 Qty: 10 0RF Primary Care Provider: Care Physician,No Primary Referrals: Care Physician,No Primary [Primary Care Provider] - Activity Restrictions/Additional Instructions: Increase fluids at home. Use Keflex for the next 5 days. Use Zofran ODT as needed, also Phenergan suppositories could be used along with Zofran if needed. Increase Gatorade or Powerade. Increase water. Follow-up with [employer]ERGY PROJECT ENGINEER. Disposition Disposition: Home, Self Care What to do if you have Problems For any increased pain, shortness of breath, bleeding, nausea or vomiting, chestpain, or any unexpected problems, contact your Primary Care Provider. Call Doctors Registry ([phone]) or report to the closest Emergency Room. Call 911 if necessary. 08/28/222004 <Electronically signed by Lucas Ferris DO> Cosigner Signature (if applicable): CC: No Primary Care Physician ~ Signed [facility] Work Phone: 1(175) 456-105903-29-2023 Miscellaneous Notes* Telephone Encounter - Crystal Hurtado MD - 08/28/2022 10:37 AM EDT Noted. Thank you. * Telephone Encounter - Ana Chacon RN - 08/28/2022 9:37 AM EDT 25w0d Patient called. Has not been able to keep any food or fluids down in the last 3 days due to vomiting. Having diarrhea too. Overall, feeling unwell and weak. Advised to go to ER for IV hydration and antiemetics. Patient voiced agreement. Due for an OB visit. Patient will call back to make this appointment. JINA Chacon RN documented in this encounterElyria Memorial Hospital02-06-2023 Miscellaneous Notes* Telephone Encounter - Haritha Marie RN - 07/08/2022 12:19 PM EST Order signed and faxed. Haritha Marie RN * Telephone Encounter - Ana Chacon RN - 07/05/2022 10:44 AM EST Received breast pump order from [employer]. To SW to sign. Ana Chacon RN documented in this encounterElyria Memorial Hospital01-06-2023 Miscellaneous Notes* Quick Notes - Brijesh Biswas MD - 06/07/2022 8:40 AM EST KJ - No VB/LOF/ctxs. Reports morning nausea with some emesis. Tolerating PO later in the day. The phenergan makes her drowsy. A&P: Nausea - advised on regular snacking. Rx zofran given. Declines aneupoldy screening Anatomy US ordered Brijesh Biswas MD documented in this encounterElyria Memorial Hospital01-06-2023 Instructions* Patient Instructions* Luciana Al Ma - 06/07/2022 8:16 AM EST SEQUENTIAL SCREENINGS [facility] offers sequential screenings for women who are interested in screenings for chromosomal abnormalities and certain defects during a . The sequential screen combinesultrasound and blood tests to determine the risk of chromosomal abnormalities, including Down's Syndrome (Trisomy 21) and Trisomy 18, as well as open neural tube defects including spina bifida. Ultrasound examination is performed between 11 weeks and 13 weeks gestational age. Blood tests are drawn after the ultrasound and again later in the between 15 and 21 weeks gestational age. Please let your physician know if you are interested in this testing. It will require an appointment withour quality systems technician. This is not an ultrasound performed by a physician in our office during a routine visit. SIGNS AND SYMPTOMS OF LABOR 1. Contractions every 10 minutes or more often 2. Clear, pink, or brownish fluid (water) leaking from vagina 3. Feeling that baby is pushing down, pressure 4. Low, dull backache 5. Cramps that feel like a period 6. Cramps with or without diarrhea If you notice any of the above symptoms, contact our office at [phone] and ask to speak with anurse. After hours, you can call doctors registry at [phone] OR call [facility] at [phone] ask to have the doctor deckhand sponge boat paged. If you consider this an emergency, dial 6-6-7 or go to your nearest emergency department. NEED HELP? Are you dealing with a violent or abusive relationship? Are you a victim of rape or sexual assult? Call [facility] ([place]) 24 hour Crisis Hotline: 961.530.5964 or 937-982-6634. MANUAL Your Guide to a Healthy manual is now on-line. Visit [email or web address] to download your free copy documented in this encounterElyria Memorial Hospital12-15-2022 Miscellaneous Notes* Telephone Encounter - Haritha Marie RN - 05/16/2022 2:54 PM EST Subject of [employer] message is [employer] screen. Message sent to patient. Haritha Marie RN * Telephone Encounter - Phillip Castro MD - 05/16/2022 2:43 PM EST Please call pt and clarify what test she wants. She had declined aneuploidy and carrier screening at [facility]. Looks like when she had her PNOB she was considering aneuploidy screening so she may be asking about NIPT. If she desires NIPT she will need NT around 12 weeks. Thanks * Telephone Encounter - Izabela Link LPN - 05/16/2022 2:08 PM EST Please see pt's mychart message and further advise. Izabela Link LPN documented in this encounterElyria Memorial Hospital12-09-2022 History of Present illness Narrative* Phillip Castro MD - 05/10/2022 11:22 AM EST Images from the original note were not included. INITIAL OB ASSESSMENT OB Provider: Phillip Castro DO HPI: Ramona Wahl is a 31 year old female here to establish Obstetrical Care. Patient's last menstrual period was 03/06/2022. from OB Dating Form. Complaints: nausea and vomiting. Has not yet started Phenergan. was planned. OB History T1 L1 SAB0 IAB0 Ectopic0 Multiple0 Live Births1 Comment: 1 vaginal delivery Prior : never History of 4th degree laceration: No Patient's Risk Screening for delivery: History of abnormal pap: No Prior treatment for cervical dysplasia: none. History of STDs: None Tobacco use: No Caffeine use: No Drug use: No Alcohol use: No Multivitamin with Folic acid: Yes Occupation: working from home Church or heritage: No Would refuse blood transfusion if medically necessary: No BMI 19.77 kg/(m^2) Patient BMI over 30? 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 pyridoxine, vitamin B6, (VITAMIN B-6) 50 mg tablet Take 25 mg by mouth four times daily. ondansetron (ZOFRAN) 4 mg tablet 1 to 2 tablets PO every 8 hours prn nausea vit calc,iron,folic ( VITAMIN ORAL) Take 1 tablet by mouth once daily. doxylamine-pyridoxine, vit B6, (BONJESTA) 20-20 mg TbID Take 1 tablet by mouth daily at bedtime. levothyroxine (SYNTHROID) 50 mcg tablet Take 50 mcg by mouth daily before breakfast. No current facility-administered medications on file prior to visit. Review of Systems: GENERAL: Negative for: Fever or Chills HEENT: Negative for: Headache, Impaired Vision, Ringing in Ears, Nosebleeds NECK: Negative for: Swelling, Pain, Stiffness RESPIRATORY: Negative for: Cough, Shortness of breath, Wheezing GASTROINTESTINAL: Negative for: Heartburn, Constipation, Diarrhea, Blood in stool MUSCULOSKELETAL: Negative for: Muscle or joint pain, stiffness, Joint swelling NEUROLOGIC/PSYCHIATRIC: Negative for: Weakness, Paralysis, Numbness, Tingling, Tremor, Anxiety, Depression, Memory loss SKIN: Negative for: Rash, Itching GENITOURINARY: Negative for: vaginal itching, vaginal discharge, hematuria or dysuria PHYSICAL EXAM: BP 90/60 Ht 5' 3 (1.60m) Wt 111 lb 9.6 oz (50.6kg) LMP 03/06/2022 BMI 19.77kg/(m^2). GENERAL: pleasant female in no apparent distress DERMATOLOGY: Normal, without lesions, non-icteric, and non-hirsute NECK: full range of motion CHEST: Normal inspiratory effort BREAST: soft, non-tender, symmetric, no dominant mass, normal nipple-areolar complex, no lymphadenopathy, and no nipple discharge ABDOMEN: soft, non-tender, and no masses NEURO: exam grossly non-focal PELVIS: External genitalia normal without lesions. Perineal body intact. No vaginal or cervical lesions. Cervix closed. Uterus 9 week size. No adnexal masses or tenderness. Clinical Pelvimetry: Pelvimetry clinically assessed as adequate Limited OB ultrasound exam: single intrauterine , positive cardiac activity, and crown-rump length 8w5d OB Risk Screening: Completed, no positive findings documented. SBIRT Ramona Wahl was given the 4P's screening tool. Ramona answered as follows: OB Opioid Screening - Last Recorded (since 08/13/2021) Did any of your parents have a problem with alcohol or other drug use? Yes father-ETOH Does your partner have a problem with alcohol or other drug use? No In the past, have you had difficulties in your life because of alcohol or other drugs, including prescription medications? No In the past month have you drunk any alcohol or used other drugs? No Are you taking medication for pain during the either prescribed or not? No Based on the screen and further questions, she is considered at Low risk due to:No past or current use. Positive reinforcement of current behavior. Plan to rescreen early third trimester. Phillip Castro MD ASSESSMENT: 31 year old at 8 wks gestational age PLAN: 1) Patient oriented to practice. Discussed nutrition, folic acid supplementation, dietary guidelines, exercise, smoking, alcohol, caffeine, and drug use. Discussed routine OB labs including STD/HIV. Discussed aneuploidy screening options including serum screening and nuchal translucency. Declines aneuploidy screening. Carrier screening discussed and declined. Follow up in 4 weeks or sooner prn. Phillip Castro DO [facility] Instructions* Patient Instructions* Seema Rose MA - 05/10/2022 11:22 AM EST Please select the following link to access the [facility] Your Guide to a Healthy . [email or web address] documented in this encounterE[facility]12-07-2022 Miscellaneous Notes* Telephone Encounter - Gisel Khan LPN - 05/08/2022 3:03 PM EST Patient notified * Telephone Encounter - Crystal Hurtado MD - 05/08/2022 2:24 PM EST Recommend starting with phenergan first if failed Vit b6. Will order. Can talk to sw about zofran. * Telephone Encounter - Ana Chacon RN - 05/08/2022 12:59 PM EST 9w0d Patient has NOB with SW on Friday. Calling to report that she is having a difficult time keeping food/fluids down - especially since Friday. Over the last 24 hours she has been able to keep x1 bottleworth of water down. Taking Vitamin B6 with little relief. Previous she had hyperemesis and was put on a Zofran pump. She does not want her N/V to get that bad again. States she did ok on the Zofran tablet in the past. Please advise. Ana Chacon RN documented in this encounterE[facility]12-01-2022 Miscellaneous Notes* Quick Notes - Katherin Shin RN - 05/02/2022 8:48 AM EST DISTANCE HEALTH VISIT This Team Access Model visit is a phone encounter. It required patient-provider interaction for themedical decision making as documented below.this is a surprise . Patient had infertility with her first and took Clomid. No reproductive assistance with this . Patient is happy about the . Patient is complaining of nausea in . Denies any vomiting. History of hyperemesis with her previous . Dietary considerations discussed . Vitamin B6 recommended. Advised patient to call/come in if she is unable to keep any food or fluids down in a 24-hour period. Patient has a history of anxiety diagnosed in 2012. She denies any history of depression or anxiety. Patient states she was diagnosed with hypothyroidism 3 years ago with infertility treatment. She states she has been off medication for the past 2 years. She does not believe she has had her thyroid levels checked since then. Patient considering aneuploidy screening. Contact information for integrated [facility] given to patient to check on insurance coverage. Patient declines genetic carrier screening testing.Katherin Shin RN documented in this encounterE[facility]12-01-2022 History of Present illness Narrative* Katherin Shin RN - 05/02/2022 8:44 AM EST # 1 - Date: 06/11/20, Sex: Female, Weight: 7 lb 5 oz (3.317 kg), GA: 39w5d, Delivery: Vaginal, Spontaneous, Apgar1: None, Apgar5: None, Living: Living, Comments: Hyperemesis # 2 - Date: None, Sex: None, Weight: None, GA: None, Delivery: None, Apgar1: None, Apgar5: None, Living: None, Comments: None documented in this encounterEly[facility]11-07-2022 Miscellaneous Notes* Telephone Encounter - Haritha Marie RN - 04/08/2022 12:02 PM EST Received records from [facility]. In [facility]NO[facility] mailbox for 05/02/22 [facility]NO[facility] appointment. Haritha Marie RN documented in this encounterEly[facility]11-04-2022 Miscellaneous Notes* Telephone Encounter - Ana Chacon RN - 04/05/2022 3:00 PM EDT Received outside medical records from [facility]. To SW to review. Ana Chacon RN documented in this encounterEly[facility]10-31-2022 History of Present illness Narrative* Phillip Castro MD - 04/01/2022 9:19 AM EDT Ramona is a 31 year old who presents for an annual gynecologic exam without complaints. Just moved to [place] with . Desires . H/o hyperemesis. Reports infertility with daughter - had SIS and labs, and was on ovulation induction medication. Was on thyroid medication in past to assist with conception as well, no longer on medication. Her and her have been trying for for about 6 months. Menses: cycles every 28 days and 6-7 days of flow. Contraception: none HPV vaccine: Yes Last Pap: 10/10/2017 normal HPV: N/A History of abnormal pap: No Last mammogram: never Sexually active: Yes Patient concerns for STD exposure: No. OB History T0 L0 SAB0 IAB0 Ectopic0 Multiple0 Live Births0 Slicing Machine Feeder History LMP: 03/05/2022 (Exact Date), Having periods Age at Menarche: Age at First : Age at Menopause: Slicing Machine Feeder History Comments: Sexual Activity: Yes; Male Contraception: No contraception data on record PAST MEDICAL HISTORY Diagnosis Date Hyperemesis gravidarum Hypothyroid PAST SURGICAL HISTORY Procedure Laterality Date ADENOIDECTOMY HX EXTRACTION ERUPTED TOOTH/EXR NONE REMOVAL GALLBLADDER 10/2021 FAMILY HISTORY Problem Relation Age of Onset Heart disease Mother Diabetes Mother Anxiety disorder Father Diabetes Maternal Grandmother SOCIAL HISTORY Social History Tobacco Use Smoking status: Never Smokeless tobacco: Never Vaping Use Vaping Use: Never used Substance Use Topics Alcohol use: Never Drug use: Never REVIEW OF SYSTEMS Abdomen: No abdominal pain, nausea, vomiting, diarrhea, or constipation. No bloating, early satiety, indigestion, or increased flatulence. Bladder: No dysuria, gross hematuria, urinary frequency, urinary urgency, or incontinence. Breast: No breast lumps, nipple d/c, overlying skin changes, redness or skin retraction. Allergies and current medication updated:Yes EXAM: BP 82/54 Ht 5' 3 (1.60m) Wt 116 lb 6.4 oz (52.8kg) LMP 03/05/2022 BMI 20.62 kg/(m^2). GENERAL: pleasant, female in no apparent distress HEENT: Normocephalic, atraumatic, mucus membranes moist, and no lesions NECK: Supple, full range of motion, no adenopathy, and thyroid normal DERMATOLOGY: Normal, without lesions, non-icteric, and non-hirsute BREAST: soft, non-tender, symmetric, no dominant mass, normal nipple-areolar complex, no lymphadenopathy, and no nipple discharge CHEST: Normal inspiratory effort ABDOMEN: soft, non-tender, and no masses PELVIC: external genitalia normal, normal Bartholin's glands, urethra, [place]'s glands, no vulvar lesions, no cervical lesions, good vaginal support, physiologic discharge present, normal appearing perineal body and perianal region BIMANUAL: uterus normal size, shape and consistency, no adnexal masses, and non-tender RECTOVAGINAL: deferred. NEURO: exam grossly non-focal EXTREMITIES: normal ASSESSMENT/PLAN: 1) Health maintenance: Pap done with reflex HPV. Nutrition, exercise and routine health maintenance exams reviewed. HPV vaccine: completed series per pt. Desires : Sign record release for prior workup. Discussed reasonable to try for 6 additional months given menstrual cycles have become more regular since having daughter, and risk associatedwith ovulation induction medication. Discussed option for ovulation induction medication as well. She will discuss further with . Cont PNV. 2) Contraception: none. Contraceptive options reviewed and information provided. 3) STD screening: Declined STD check. 4) Follow up one year or sooner as needed Phillip Castro DO documented in this encounterEly[facility]12-08-2021 History of Present illness Narrative* 31F who presents today for evaluation of right subcostal, sternal, and epigastric pain x 2 episodes. * Initially complained of sternal, pressure-like pain radiating to RUQ when she was 7 months which prompted a GB US showing biliary sludge. She then had a similar episode a few months ago asx with squeezing substernal pain, plapitationsa, diaphoresis, lasting for 5 hours prompting her to present to the ED. Work-up at that time was reportedly negative. She denies biliary colic symptoms. Pain not worsened by food. * Does report of anxiety. * Used to take carafate when . Not currently on PPI. Denies further episodes of attacks * Patient is wishing to get soon [facility] Work Phone: 1([phone]) 792-390712-08-2021 History of Present illness Narrative* 31F who presents today for evaluation of right subcostal, sternal, and epigastric pain x 2 episodes. * Initially complained of sternal, pressure-like pain radiating to RUQ when she was 7 months which prompted a GB US showing biliary sludge. She then had a similar episode a few months ago asx with squeezing substernal pain, plapitationsa, diaphoresis, lasting for 5 hours prompting her to present to the ED. Work-up at that time was reportedly negative. She denies biliary colic symptoms. Pain not worsened by food. * Does report of anxiety. * Used to take carafate when . Not currently on PPI. Denies further episodes of attacks * Patient is wishing to get soon [facility] Work Phone: 1(371) 255-700612-04-2021 History of Present illness Narrative* 31F who presents today for evaluation of right subcostal, sternal, and epigastric pain x 2 episodes. * Initially complained of sternal, pressure-like pain radiating to RUQ when she was 7 months which prompted a GB US showing biliary sludge. She then had a similar episode a few months ago asx with squeezing substernal pain, plapitationsa, diaphoresis, lasting for 5 hours prompting her to present to the ED. Work-up at that time was reportedly negative. She denies biliary colic symptoms. Pain not worsened by food. * Does report of anxiety. * Used to take carafate when . Not currently on PPI. Denies further episodes of attacks * Patient is wishing to get soon [facility] Work Phone: 1(553) 807-221007-01-2021 History of Present illness Narrative* Ramona Wahl is a 30 year old female who presents to the office for cpe and concern. * Concern: November eye sight is going out and was gone for 4 hours * possible ocular migraine * sent to eye doctor * history of migraine in the past, has been off since 2014 * no trauma * grandfather passed * very morales lately * no pattern in timing * more over thinking more * not able to do control worsened since baby * happening almost everyday * this morning 15min * caffiene * 2 cups of water daily * 1 glass of chocolate milk * Family Hx: grandfather had multiple strokes * Medications: multivit, probiotic * Alcohol- rarely; tobacco use-none, illicit drugs none; , baby * Allergies: environmental t * Surgeries: none * gallbladder[facility]cystectomy [facility] Work Phone: 1([phone]) 105-858207-01-2021 History of Present illness Narrative* Ramona Wahl is a 30 year old female who presents to the office for cpe and concern. * Concern: November eye sight is going out and was gone for 4 hours * possible ocular migraine * sent to eye doctor * history of migraine in the past, has been off since 2014 * no trauma * grandfather passed * very morales lately * no pattern in timing * more over thinking more * not able to do control worsened since baby * happening almost everyday * this morning 15min * caffiene * 2 cups of water daily * 1 glass of chocolate milk * Family Hx: grandfather had multiple strokes * Medications: multivit, probiotic * Alcohol- rarely; tobacco use-none, illicit drugs none; , baby * Allergies: environmental t * Surgeries: none * gallbladder-cystectomy [facility] Work Phone: [phone]) 134-181407-01-2020 History of Past illness Narrative* Problem Noted Date Resolved Date Nausea and vomiting during 12/01/2019 07/19/2022 Overview: - Transfer from [facility] ED - S/p 2L IVF, Zofran, Reglan and Benadryl - Unremarkable CBC, mag, lipase - Urine dip with large ketones - Patient comfortable without current nausea and no emesis for past 10 hours - PO challenge successful - Patient with Rx for unisom/b6, phenergan and imminent zofran pump at home. Given short course of ODT Zofran until receives pump. - Discharged home in stable condition with instructions to follow up with regular OB provider. documented as of this encounter (statuses as of 08/28/2022) [facility] of Past illness Narrative* Problem Noted Date Resolved Date Nausea and vomiting during 12/01/2019 07/19/2022 Overview: - Transfer from [facility] ED - S/p 2L IVF, Zofran, Reglan and Benadryl - Unremarkable CBC, mag, lipase - Urine dip with large ketones - Patient comfortable without current nausea and no emesis for past 10 hours - PO challenge successful - Patient with Rx for unisom/b6, phenergan and imminent zofran pump at home. Given short course of ODT Zofran until receives pump. - Discharged home in stable condition with instructions to follow up with regular OB provider. documented as of this encounter (statuses as of 09/05/2022) [facility] History of Past illness Narrative* Problem Noted Date Resolved Date Nausea and vomiting during 12/01/2019 07/19/2022 Overview: - Transfer from [facility] ED - S/p 2L IVF, Zofran, Reglan and Benadryl - Unremarkable CBC, mag, lipase - Urine dip with large ketones - Patient comfortable without current nausea and no emesis for past 10 hours - PO challenge successful - Patient with Rx for unisom/b6, phenergan and imminent zofran pump at home. Given short course of ODT Zofran until receives pump. - Discharged home in stable condition with instructions to follow up with regular OB provider. documented as of this encounter (statuses as of 09/09/2022) [facility] of Past illness Narrative* Problem Noted Date Resolved Date Nausea and vomiting during 12/01/2019 07/19/2022 Overview: - Transfer from [facility] ED - S/p 2L IVF, Zofran, Reglan and Benadryl - Unremarkable CBC, mag, lipase - Urine dip with large ketones - Patient comfortable without current nausea and no emesis for past 10 hours - PO challenge successful - Patient with Rx for unisom/b6, phenergan and imminent zofran pump at home. Given short course of ODT Zofran until receives pump. - Discharged home in stable condition with instructions to follow up with regular OB provider. documented as of this encounter (statuses as of 09/20/2022) [facility] of Past illness Narrative* Problem Noted Date Resolved Date Nausea and vomiting during 12/01/2019 07/19/2022 Overview: - Transfer from [facility] ED - S/p 2L IVF, Zofran, Reglan and Benadryl - Unremarkable CBC, mag, lipase - Urine dip with large ketones - Patient comfortable without current nausea and no emesis for past 10 hours - PO challenge successful - Patient with Rx for unisom/b6, phenergan and imminent zofran pump at home. Given short course of ODT Zofran until receives pump. - Discharged home in stable condition with instructions to follow up with regular OB provider. documented as of this encounter (statuses as of 10/04/2022) [facility] of Past illness Narrative* Problem Noted Date Resolved Date Nausea and vomiting during 12/01/2019 07/19/2022 Overview: - Transfer from [facility] ED - S/p 2L IVF, Zofran, Reglan and Benadryl - Unremarkable CBC, mag, lipase - Urine dip with large ketones - Patient comfortable without current nausea and no emesis for past 10 hours - PO challenge successful - Patient with Rx for unisom/b6, phenergan and imminent zofran pump at home. Given short course of ODT Zofran until receives pump. - Discharged home in stable condition with instructions to follow up with regular OB provider. documented as of this encounter (statuses as of 11/04/2022) [facility] of [facility] illness Narrative* Problem Noted Date Resolved Date Nausea and vomiting during 12/01/2019 07/19/2022 Overview: - Transfer from [facility] ED - S/p 2L IVF, Zofran, Reglan and Benadryl - Unremarkable CBC, mag, lipase - Urine dip with large ketones - Patient comfortable without current nausea and no emesis for past 10 hours - PO challenge successful - Patient with Rx for unisom/b6, phenergan and imminent zofran pump at home. Given short course of ODT Zofran until receives pump. - Discharged home in stable condition with instructions to follow up with regular OB provider. documented as of this encounter (statuses as of 11/19/2022) [facility] of [facility] illness Narrative* Problem Noted Date Resolved Date Nausea and vomiting during 12/01/2019 07/19/2022 Overview: - Transfer from [facility] ED - S/p 2L IVF, Zofran, Reglan and Benadryl - Unremarkable CBC, mag, lipase - Urine dip with large ketones - Patient comfortable without current nausea and no emesis for past 10 hours - PO challenge successful - Patient with Rx for unisom/b6, phenergan and imminent zofran pump at home. Given short course of ODT Zofran until receives pump. - Discharged home in stable condition with instructions to follow up with regular OB provider. documented as of this encounter (statuses as of 11/26/2022) [facility] of Past illness Narrative* Problem Noted Date Diagnosed Date Resolved Date Nausea and vomiting during 12/01/2019 07/19/2022 Overview: - Transfer from [facility] ED - S/p 2L IVF, Zofran, Reglan and Benadryl - Unremarkable CBC, mag, lipase - Urine dip with large ketones - Patient comfortable without current nausea and no emesis for past 10 hours - PO challenge successful - Patient with Rx for unisom/b6, phenergan and imminent zofran pump at home. Given short course of ODT Zofran until receives pump. - Discharged home in stable condition with instructions to follow up with regular OB provider. documented as of this encounter (statuses as of 12/09/2022) [facility] of [facility] illness Narrative* Problem Noted Date Diagnosed Date Resolved Date Nausea and vomiting during 12/01/2019 07/19/2022 Overview: - Transfer from [facility] ED - S/p 2L IVF, Zofran, Reglan and Benadryl - Unremarkable CBC, mag, lipase - Urine dip with large ketones - Patient comfortable without current nausea and no emesis for past 10 hours - PO challenge successful - Patient with Rx for unisom/b6, phenergan and imminent zofran pump at home. Given short course of ODT Zofran until receives pump. - Discharged home in stable condition with instructions to follow up with regular OB provider. documented as of this encounter (statuses as of 12/13/2022) [facility] of [facility] illness Narrative* Problem Noted Date Diagnosed Date Resolved Date Nausea and vomiting during 12/01/2019 07/19/2022 Overview: - Transfer from [facility] ED - S/p 2L IVF, Zofran, Reglan and Benadryl - Unremarkable CBC, mag, lipase - Urine dip with large ketones - Patient comfortable without current nausea and no emesis for past 10 hours - PO challenge successful - Patient with Rx for unisom/b6, phenergan and imminent zofran pump at home. Given short course of ODT Zofran until receives pump. - Discharged home in stable condition with instructions to follow up with regular OB provider. documented as of this encounter (statuses as of 12/17/2022) [facility] of [facility] illness Narrative* Problem Noted Date Diagnosed Date Resolved Date Nausea and vomiting during 12/01/2019 07/19/2022 Overview: - Transfer from [facility] ED - S/p 2L IVF, Zofran, Reglan and Benadryl - Unremarkable CBC, mag, lipase - Urine dip with large ketones - Patient comfortable without current nausea and no emesis for past 10 hours - PO challenge successful - Patient with Rx for unisom/b6, phenergan and imminent zofran pump at home. Given short course of ODT Zofran until receives pump. - Discharged home in stable condition with instructions to follow up with regular OB provider. documented as of this encounter (statuses as of 01/08/2023) [facility] Hospital[facility] complaint Narrative - ReportedEvaluation of ruq pain, gallbladder.[facility] Work Phone: chief complaint Narrative - ReportedEvaluation of ruq pain, gallbladder.[facility] Work Phone: evaluation note* Diagnosis Encounter for gynecological examination without abnormal finding- Primary Routine gynecological examination Encounter for screening for malignant neoplasm of cervix Screening for malignant neoplasm of the cervix documented [facility] encounter [facility]* Diagnosis Supervision of with history of infertility, antepartum- Primary related nausea, antepartum Mild hyperemesis gravidarum, antepartum History of anxiety Personal history of other mental disorder History of hypothyroidism Personal history of other endocrine, metabolic, and immunity disorders documented [facility] this encounter [facility]* Diagnosis Encounter for supervision of other normal in first trimester- Primary 9 weeks gestation of state, incidental documented in this encounter [facility] [facility] Diagnosis Encounter for supervision of other normal in first trimester- Primary 13 weeks gestation of state, incidental [facility] noteNo assessment information availableWWhite [facility] Work Phone: [facility]* Diagnosis 26 weeks gestation of - Primary state, incidental Encounter for supervision of other normal in second trimester [facility] Diagnosis Encounter for supervision of other normal in third trimester- Primary 28 weeks gestation of state, incidental Need for vaccination Need for prophylactic vaccination and inoculation against unspecified single disease [facility] Diagnosis Supervision of with history of infertility, antepartum- Primary 30 weeks gestation of state, incidental [facility] Diagnosis 34 weeks gestation of - Primary state, incidental Supervision of with history of infertility, antepartum [facility] Diagnosis 36 weeks gestation of - Primary state, incidental [facility] Diagnosis 37 weeks gestation of - Primary state, incidental [facility] Diagnosis Supervision of with history of infertility, antepartum- Primary 39 weeks gestation of state, incidental [facility]* Diagnosis Supervision of with history of infertility, antepartum- Primary 40 weeks gestation of state, incidental [facility] Diagnosis Supervision of with history of infertility, antepartum- Primary 40 weeks gestation of state, incidental [facility] Diagnosis state- Primary Routine follow-up documented [facility]* Diagnosis Encounter for gynecological examination (general) (routine) without abnormal findings- Primary [facility]* Diagnosis Impacted cerumen of left ear- Primary Impacted cerumen documented in this encounter [facility] Work Phone: Evaluation note* Diagnosis Nausea and vomiting in - Primary Unspecified vomiting of , unspecified as to episode of care 7 weeks gestation of state, incidental History of hypothyroidism Personal history of other endocrine, metabolic, and immunity disorders [facility] Diagnosis with uncertain dates, antepartum- Primary state, incidental 8 weeks gestation of state, incidental Screen for STD (sexually transmitted disease) Screening examination for venereal disease Screening for cervical cancer Screening for malignant neoplasm of the cervix Encounter for supervision of normal intrauterine in multigravida, antepartum Hyperemesis of Mild hyperemesis gravidarum, unspecified as to episode of care documented in this encounter [facility]* Diagnosis Encounter for medical examination to establish care- Primary [facility]* Diagnosis Encounter for screening for malformation using ultrasound- Primary 12 weeks gestation of state, incidental [facility]* Diagnosis Encounter for supervision of other normal in second trimester- Primary 12 weeks gestation of state, incidental History of anxiety Personal history of other mental disorder History of hypothyroidism Personal history of other endocrine, metabolic, and immunity disorders related nausea, antepartum Mild hyperemesis gravidarum, antepartum [facility] Diagnosis Encounter for supervision of normal intrauterine in multigravida, antepartum ([facility])- Primary Encounter for supervision of other normal in second trimester ([facility])- Primary 20 weeks gestation of ([facility]) state, incidental History of hypothyroidism Personal history of other endocrine, metabolic, and immunity disorders History of anxiety Personal history of other mental disorder [facility] Diagnosis Encounter for supervision of normal intrauterine in multigravida, antepartum ([facility])- Primary Encounter for anatomic survey ([facility])- Primary Encounter for anatomic survey 21 weeks gestation of ([facility]) state, incidental [facility]* Diagnosis Encounter for supervision of normal intrauterine in multigravida, antepartum ([facility])- Primary Encounter for supervision of other normal in second trimester ([facility])- Primary 24 weeks gestation of (HCC) state, incidental History of hypothyroidism Personal history of other endocrine, metabolic, and immunity disorders Screening for diabetes mellitus [facility] Encounter for supervision of normal intrauterine in multigravida, antepartum ([facility])- Primary Encounter for supervision of other normal in second trimester ([facility])- Primary 28 weeks gestation of (HCC) state, incidental History of hypothyroidism Personal history of other endocrine, metabolic, and immunity disorders [facility]* Diagnosis Encounter for supervision of normal intrauterine in multigravida, antepartum (HCC)- Primary 30 weeks gestation of ([facility])- Primary state, incidental Encounter for supervision of other normal in third trimester ([facility]) Bilateral hip pain Pain in joint, pelvic region and thigh documented [facility] Diagnosis Encounter for supervision of normal intrauterine in multigravida, antepartum ([facility])- Primary 34 weeks gestation of ([facility])- Primary state, incidental Encounter for supervision of other normal in third trimester ([facility]) History of hypothyroidism Personal history of other endocrine, metabolic, and immunity disorders [facility] Diagnosis Encounter for supervision of normal intrauterine in multigravida, antepartum ([facility])- Primary Encounter for supervision of other normal in third trimester ([facility])- Primary 36 weeks gestation of ([facility]) state, incidental History of hypothyroidism Personal history of other endocrine, metabolic, and immunity disorders [facility] Diagnosis Encounter for supervision of normal intrauterine in multigravida, antepartum ([facility])- Primary 37 weeks gestation of ([facility])- Primary state, incidental History of hypothyroidism Personal history of other endocrine, metabolic, and immunity disorders Encounter for supervision of other normal in third trimester ([facility]) [facility] Diagnosis Encounter for supervision of normal intrauterine in multigravida, antepartum ([facility])- Primary Low TSH level- Primary Nonspecific abnormal results of thyroid function study [facility]* Diagnosis Encounter for supervision of normal intrauterine in multigravida, antepartum ([facility])- Primary Encounter for supervision of other normal in third trimester ([facility])- Primary History of hypothyroidism Personal history of other endocrine, metabolic, and immunity disorders 38 weeks gestation of (HCC) state, incidental [facility]* 30 yo female presents for c/o b/l ear fullness x 1 month * Pt denies fevers/chills or ear pain * 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 Pt had been having transient vision loss. Working dx of ocular migraines. * Family Hx: grandfather had multiple strokes * Medications: multivit, probiotic * Alcohol- rarely; tobacco use-none, illicit drugs none; , baby * Allergies: environmental t * Surgeries: none * gallbladder-cystectomy [facility] Work Phone: History of Present illness Narrative* Follow-Up Note * Referring Provider: none * Chief Complaint: post op * History of Present Illness: * This is a 31-year-old female who presents as a telehealth visit about 3 weeks after a laparoscopic cholecystectomy. She has been doing well since surgery, feels that her incisions are healing well, has no drainage, or dehiscence, no warmth or redness around the incision sites. Pain is tolerable andminimal at this point. She states that pain experienced prior to her procedure is resolved at this point. Denies fevers or chills. Has been eating and drinking well, even tolerating some fatty foods without issue. * Past Medical History: * See Below * Past Surgical History: * See Below * Medications: * See Below * Allergies: * See Below * Family History: * See Below * Social History: * See Below * Review of Systems * A complete 10 point review of systems was performed and is negative except as noted in the history of present illness. * Vitals: See vital section below * Physical Exam: * Full exam deferred due to this being a telehealth visit * Labs: * Surgical pathology, gallbladder with no pathologic findings * Imaging: none * Assessment: * This is a 31-year-old female who is a telehealth visit to review surgical pathology in regards to her laparoscopic cholecystectomy performed 3 weeks ago. Patient recently moved to [facility]. surgical pathology revealed a gallbladder with no pathologic findings, making this consistentwith a biliary dyskinesia. Right upper quadrant ultrasound prior to procedure did reveal cholelithiasis, we discussed that stones may have passed between the ultrasound and surgery date. She has beendoing well since surgery, eating and drinking without issue, pain controlled. No concerns with her incision states that are healing as expected * Plan: * -- No lifting for about 1 more weeks more than 10 pounds * --Regular diet * --Okay for swimming and tub soaks * --Return to follow-up or call our office if any new or worsening symptoms or experience * Patient discussed with who is in agreement with plan. * Alia Donahue PA-C * General and Trauma surgery * Office: [phone] * [facility] Work Phone: Hospital Discharge instructions Additional Instructions Increase fluids at home. Use Keflex for the next 5 days. Use Zofran ODT as needed, also Phenergan suppositories could be used along with Zofran if needed. Increase Gatorade or Powerade. Increase water. Follow-up with ENERGY PROJECT ENGINEER.[facility] Work Phone: Reason for referral (narrative)* Diagnostic Procedure Only (Routine) - Authorized Specialty Diagnoses / Procedures Referred By Pari sellers Referred To Contact [facility] Diagnoses Encounter for supervision of other normal in first trimester Procedures OBSTETRIC ULTRASOUND WHI US PREG UTERUS AFTER 1ST TRIMEST GESTATION Brijesh Biswas MD [address] [place] [address] [facility] [address] [place] [address] Referral ID Status Reason Start Date Expiration Date Visits Requested Visits Authorized [id number] Authorized Auto-Generat ed Referral 06/07/2022 06/07/2023 1 1 [facility] Summary Purpose Family History No Family History Records FoundNo Family History Records FoundNo Family History Records FoundNo Family History Records FoundNo Family History Records FoundNo Family History Records FoundNo Family History Records FoundNo Family History Records FoundNo Family History Records FoundNo Family History Records FoundNo Family History Records FoundNo Family History Records Found Advance Directives No Advanced Directives Records Found Advance Directive Response Recorded Date/ Time Living Will No August 28, 2022 5:59pm Power of Applied Anthropologist No August 28 5:59pm Hospital Course * Course of treatment during hospitalization: : Labor and delivery * Course of treatment during hospitalization: : Labor and delivery * Course of treatment during hospitalization: : Labor and delivery Assessments and Plan Assessment and Plan from 06/11/2020 2:53 AM: * Why You Were Here: To have your baby * Brief Discharge Plan: Home with your baby Assessment and Plan from 06/13/2020 8:08 AM: * Why You Were Here: To have your baby * Brief Discharge Plan: Home with your baby Assessment and Plan from 06/13/2020 8:08 AM: * Why You Were Here: To have your baby * Brief Discharge Plan: Home with your baby Discharge Instructions Education materials given during your stay from 06/11/2020 7:48 AM: * Important Topics to learn about per Patient : Merry Care/Episiotomy Care,Changes in Bleeding and Uterus,Comfort Management,Incision Care,Breast Care - Engorgement,Breast Care - Nursing Mother,Bowel / Bladder Function,Rest/ Activity / Exercise, Emotional Changes,Return of Menstruation / Elyssa h Control,When to Call Doctor * Evidence of Learning : Patient Patient Transfer Information from 06/11/2020 2:53 AM: * Course of treatment during hospitalization: : Labor and delivery Physician Follow-up Plan/Appointments from 06/11/2020 1:27 AM: * Patient stated Primary Care Provider : Ana Boateng Activity on Discharge from 06/13/2020 8:08 AM: * Activity Restrictions : No Sexual Relations * Stairs : As tolerated * Bathing : May Shower Diabetes Information for Discharge from 06/13/2020 8:07 AM: * Call your physician if: : Call your physician if: Diet Plan/Instructions at Discharge from 06/13/2020 8:08 AM: * Diet Restrictions : Resume Home Diet Discharge Plan for Mom from 06/13/2020 8:07 AM: * Maternal Education Topics reviewed : Breast Care - Nursing Mother,Breast Care - Engorgement,Changesin Bleeding and Uterus,Comfort Management,Bowel / Bladder Function,Rest / Activity / Exercise, Emotional Changes,Return of Menstruation / Control,When to Call Doctor * Breast Care - Nursing Mother : Breast Care - Nursing Mother * Given Breast Feeding Folder : Yes * Wear a supportive bra - not too tight : Yes * Use clear water on nipples : Yes * Engorgement : Engorgement * Use warm soaks on your breast before feeding or expressing : Yes * Breast feed or express milk 8 -12 times per day : Yes * Vary positions : Yes * Drink plenty of fluids : Yes * Avoid restrictive clothing and underwire bras : Yes * Call your physician if: : Call your physician if: * Your nipples are cracked or bleeding : Yes * is painful : Yes * Hard,red,painful area that does not go away within a few days : Yes * Your breasts have red spots or streaks and feel tender : Yes * You have chills, flulike sypmtoms : Yes * Temperature greater than 100.4F (38C) : Yes Education materials given during your stay from 06/13/2020 8:55 AM: * Important Topics to learn about per Patient : Merry Care/Episiotomy Care,Changes in Bleeding and Uterus,Comfort Management,Incision Care,Breast Care - Engorgement,Breast Care - Nursing Mother,Bowel / Bladder Function,Rest/ Activity / Exercise, Emotional Changes,Return of Menstruation / Elyssa h Control,When to Call Doctor * Maternal Education Initiated : Yes * Teaching Method : Verbal Instruction * Evidence of Learning : Patient,Able to verbalize and/or demonstrate understanding of health teaching * States merry care/stitch care : Change sanitary pads often,Avoid tampons until after 6 week checkup,Stitiches dissolve in about 3 weeks,Use merry-bottle when changing sanitary pads,after urination or after a bowel movement,Fill merry- bottle with warm water and direct spray from front to back,Pat dry from front to back,Use merry-bottle until discharge stops * States changes in bleeding and uterus : Uterus takes about 6 weeks to shrink to its normal size,Stomach muscles may take a little longer to return to normal,Bloody discharge from vagina after childbirth is called lochia,Lochia lasts 3-6 weeks,First few days - lochia is bright red, heavy to moderate amount, may pass small clots,End of first week - lochia will be dark red-brown and amount will decrease,2-3rd week - lochia will be pale pink to straw- colored and slight in amount,Do not use tampons * States comfort management : Use slow deep breathing * States breast care for nursing Mother : Wear a supportive bra,Use clear water on nipples,Breast feed or express milk 8 - 12 times per day,Vary positions,Drink water to satisfy your thirst,Avoid restrictive clothing and underwire bras * States bowel and bladder function : Drink at least 8 glasses of fluid each day to help reduce constipation,Eat 3-6 servings each of fresh fruits, vegetables and whole grains each day,Walk and stay asactive as you can * States activity progression or limitation : Take frequent naps,Walk and move around as soon as you feel able * States emotional changes : Take care of yourself,'Baby blues' should only last a short time,Get plenty of sleep, eat balanced meals and talk with your family and friends about your feelings, Depression * States return of menustration/use of control : Should use control if another is not wanted * States when to call Doctor : If your nipples are cracked or bleeding, is painful,Notice hard, red, painful area on breast that does not go away within a few days,Your breasts have red spots or streaks and feel tender,You have chills, flu-like sypmtoms,Temperature greater than 101.4F (38C),Painful urination or trouble passing stools * Learning Barrier : None Medication Plan/Information for Discharge from 06/13/2020 8:08 AM: * Discharge Medication : None Patient Transfer Information from 06/13/2020 8:08 AM: * Course of treatment during hospitalization: : Labor and delivery * PT wt bearing: : Full * Diet Restrictions : Resume Home Diet Physician Follow-up Plan/Appointments from 06/13/2020 9:05 AM: * Discharge Physician: : Vivian Rondon MD ([id number]) - Obstetrics and PETROPHYSICAL ENGINEER * Follow up with Ordering Physician : 6 * Discharge Physician Specialty : Week(s) * Discharge Physician Phone: : [address] [place] [phone] * Patient stated Primary Care Provider : Ana Boateng Pneumonia/Influenza Vaccine Screen from 06/13/2020 8:07 AM: * Pneumovax screening tool completed : Yes * Pneumovax administered : No, not applicable * Influenza screening tool completed : Yes * Influenza vaccine administered : No, not applicable Activity on Discharge from 06/13/2020 8:08 AM: * Activity Restrictions : No Sexual Relations * Stairs : As tolerated * Bathing : May Shower Diabetes Information for Discharge from 06/13/2020 8:07 AM: * Call your physician if: : Call your physician if: Diet Plan/Instructions at Discharge from 06/13/2020 8:08 AM: * Diet Restrictions : Resume Home Diet Discharge Plan for Mom from 06/13/2020 8:07 AM: * Maternal Education Topics reviewed : Breast Care - Nursing Mother,Breast Care - Engorgement,Changesin Bleeding and Uterus,Comfort Management,Bowel / Bladder Function,Rest / Activity / Exercise, Emotional Changes,Return of Menstruation / Control,When to Call Doctor * Breast Care - Nursing Mother : Breast Care - Nursing Mother * Given Breast Feeding Folder : Yes * Wear a supportive bra - not too tight : Yes * Use clear water on nipples : Yes * Engorgement : Engorgement * Use warm soaks on your breast before feeding or expressing : Yes * Breast feed or express milk 8 -12 times per day : Yes * Vary positions : Yes * Drink plenty of fluids : Yes * Avoid restrictive clothing and underwire bras : Yes * Call your physician if: : Call your physician if: * Your nipples are cracked or bleeding : Yes * is painful : Yes * Hard,red,painful area that does not go away within a few days : Yes * Your breasts have red spots or streaks and feel tender : Yes * You have chills, flulike sypmtoms : Yes * Temperature greater than 100.4F (38C) : Yes Education materials given during your stay from 06/13/2020 8:55 AM: * Important Topics to learn about per Patient : Merry Care/Episiotomy Care,Changes in Bleeding and Uterus,Comfort Management,Incision Care,Breast Care - Engorgement,Breast Care - Nursing Mother,Bowel / Bladder Function,Rest/ Activity / Exercise, Emotional Changes,Return of Menstruation / Elyssa h Control,When to Call Doctor * Maternal Education Initiated : Yes * Teaching Method : Verbal Instruction * Evidence of Learning : Patient,Able to verbalize and/or demonstrate understanding of health teaching * States merry care/stitch care : Change sanitary pads often,Avoid tampons until after 6 week checkup,Stitiches dissolve in about 3 weeks,Use merry-bottle when changing sanitary pads,after urination or after a bowel movement,Fill merry- bottle with warm water and direct spray from front to back,Pat dry from front to back,Use merry-bottle until discharge stops * States changes in bleeding and uterus : Uterus takes about 6 weeks to shrink to its normal size,Stomach muscles may take a little longer to return to normal,Bloody discharge from vagina after childbirth is called lochia,Lochia lasts 3-6 weeks,First few days - lochia is bright red, heavy to moderate amount, may pass small clots,End of first week - lochia will be dark red-brown and amount will decrease,2-3rd week - lochia will be pale pink to straw- colored and slight in amount,Do not use tampons * States comfort management : Use slow deep breathing * States breast care for nursing Mother : Wear a supportive bra,Use clear water on nipples,Breast feed or express milk 8 - 12 times per day,Vary positions,Drink water to satisfy your thirst,Avoid restrictive clothing and underwire bras * States bowel and bladder function : Drink at least 8 glasses of fluid each day to help reduce constipation,Eat 3-6 servings each of fresh fruits, vegetables and whole grains each day,Walk and stay asactive as you can * States activity progression or limitation : Take frequent naps,Walk and move around as soon as you feel able * States emotional changes : Take care of yourself,'Baby blues' should only last a short time,Get plenty of sleep, eat balanced meals and talk with your family and friends about your feelings, Depression * States return of menustration/use of control : Should use control if another is not wanted * States when to call Doctor : If your nipples are cracked or bleeding, is painful,Notice hard, red, painful area on breast that does not go away within a few days,Your breasts have red spots or streaks and feel tender,You have chills, flu-like sypmtoms,Temperature greater than 101.4F (38C),Painful urination or trouble passing stools * Learning Barrier : None Medication Plan/Information for Discharge from 06/13/2020 8:08 AM: * Discharge Medication : None Patient Transfer Information from 06/13/2020 2:30 PM: * Pain Location #1 : Perineum * Pain Rating : Numeric,6 Physician Follow-up Plan/Appointments from 06/13/2020 9:05 AM: * Discharge Physician: : Vivian Rondon MD ([id number]) - Obstetrics and PETROPHYSICAL ENGINEER * Follow up with Ordering Physician : 6 * Discharge Physician Specialty : Week(s) * Discharge Physician Phone: : [address] [facility] [address] [place] [phone] * Patient stated Primary Care Provider : Ana Boateng Pneumonia/Influenza Vaccine Screen from 06/13/2020 8:07 AM: * Pneumovax screening tool completed : Yes * Pneumovax administered : No, not applicable * Influenza screening tool completed : Yes * Influenza vaccine administered : No, not applicable Chief Complaint Ramona is her for a possible bilateral ear infection, she is having on and off pain in her ears and they feel clogged, she also is having headache pain, x 1 month started with the headache.Pt is here for her CPE today. PT states that she is having ocular migraines. Pt is also loosing vision in the left eye when she has a whole bunch of squeezing in the head. Eye doctor said her eyes are fine.Pt is here for her CPE today. PT states that she is having ocular migraines. Pt is also loosing vision in the left eye when she has a whole bunch of squeezing in the head. Eye doctor said her eyes are fine.Pt is here for a 3 weeks follow up. No refills.Pt is here for a 3 weeks follow up. No refills.* post op * 11-06-2021 * Robotic cholecystectomy. Health Concerns Problem Noted Date OB Reminders 05/10/2022 Problem Noted Date OB Reminders 05/10/2022 Problem Noted Date OB Reminders 05/10/2022 Problem Noted Date OB Reminders 05/10/2022 Problem Noted Date OB Reminders 05/10/2022 Problem Noted Date OB Reminders 05/10/2022 Problem Noted Date OB Reminders 05/10/2022 Problem Noted Date OB Reminders 05/10/2022 Problem Noted Date OB Reminders 05/10/2022 Problem Noted Date OB Reminders 05/10/2022 Problem Noted Date OB Reminders 05/10/2022 Problem Noted Date OB Reminders 05/10/2022 Problem Noted Date Diagnosed Date OB Reminders 05/10/2022 Problem Noted Date Diagnosed Date OB Reminders 05/10/2022 Problem Noted Date Diagnosed Date OB Reminders 05/10/2022 Problem Noted Date Diagnosed Date OB Reminders 05/10/2022 Chief Complaint and Reason for Visit Chief Complaint N/V/D Additional Source Comments INFORMATION SOURCE (unrecogn ized section and content) DATE CREATED AUTHOR 05/11/2018 [facility] DATE CREATED AUTHOR AUTHOR'S ORGANIZ ATION 05/11/2018 [facility] DATE CREATED AUTHOR AUTHOR'S ORGANIZ ATION 12/23/2019 [facility] DATE CREATED AUTHOR AUTHOR'S ORGANIZ ATION 02/26/2020 [facility] DATE CREATED AUTHOR AUTHOR'S ORGANIZ ATION 07/29/2020 [facility] DATE CREATED AUTHOR AUTHOR'S ORGANIZ ATION 06/08/2021 [facility] DATE CREATED AUTHOR AUTHOR'S ORGANIZ ATION 11/19/2021 [facility] DATE CREATED AUTHOR AUTHOR'S ORGANIZ ATION 12/01/2021 [facility] DATE CREATED AUTHOR AUTHOR'S ORGANIZ ATION 12/07/2021 [facility] DATE CREATED AUTHOR AUTHOR'S ORGANIZ ATION 03/30/2024 [facility] DATE CREATED AUTHOR AUTHOR'S ORGANIZ ATION 08/01/2024 [facility] DATE CREATED AUTHOR AUTHOR'S ORGANIZ ATION 02/17/2025 [facility] Goals (unrecognized section and content) Goals from 06/13/2020 8:08 AM:Goal for Diet : Maintain Balanced DietGoal for Mobility : Maintain active lifestyle as tolerated Patient Stated Goals from 06/13/2020 8:07 AM:Patient's Personal Life Style and Recovery Goal : .Patient's Personal Life Style and Recovery Plan : . Goals from 06/13/2020 8:08 AM:Goal for Diet : Maintain Balanced DietGoal for Mobility : Maintain active lifestyle as tolerated Patient Stated Goals from 06/13/2020 8:07 AM:Patient's Personal Life Style and Recovery Goal : .Patient's Personal Life Style and Recovery Plan : . Goals may be documented in an alternate section Source Comments (unrecognize d section and content) In the event this informatio n is protected by the Federal Confidentiality of Alcohol and Drug Abuse Patient Records regulations: The Federal rules restrict any use of the information to criminally investigate or prosecute any alcohol or drug abuse patient.[facility] the event this information is protected by the Federal Confidentiality of Alcohol and Drug Abuse Patient Records regulations: The Federal rules restrict any use of the information to criminally investigate or prosecute any alcohol or drug abuse patient.[facility] HospitalIn the event this information is protected by the Federal Confidentiality of Alcohol and Drug Abuse Patient Records regulations: The Federal rules restrict any use of the information to criminally investigate or prosecute any alcohol or drug abuse patient.[facility] HospitalIn the event this information is protected by the Federal Confidentiality of Alcohol and Drug Abuse Patient Records regulations: The Federal rules restrict any use of the information to criminally investigate or prosecute any alcohol or drug abuse patient.[facility] HospitalIn the event this information is protected by the Federal Confidentiality of Alcohol and Drug Abuse Patient Records regulations: The Federal rules restrict any use of the information to criminally investigate or prosecute any alcohol or drug abuse patient.[facility] HospitalIn the event this information is protected by the Federal Confidentiality of Alcohol and Drug Abuse Patient Records regulations: The Federal rules restrict any use of the information to criminally investigate or prosecute any alcohol or drug abuse patient.[facility] HospitalIn the event this information is protected by the Federal Confidentiality of Alcohol and Drug Abuse Patient Records regulations: The Federal rules restrict any use of the information to criminally investigate or prosecute any alcohol or drug abuse patient.[facility]In the event this information is protected by the Federal Confidentiality of Alcohol and Drug Abuse Patient Records regulations: The Federal rules restrict any use of the information to criminally investigate or prosecute any alcohol or drug abuse patient.[facility] HospitalIn the event this information is protected by the Federal Confidentiality of Alcohol and Drug Abuse Patient Records regulations: The Federal rules restrict any use of the information to criminally investigate or prosecute any alcohol or drug abuse patient.[facility] HospitalIn the event this information is protected by the Federal Confidentiality of Alcohol and Drug Abuse Patient Records regulations: The Federal rules restrict any use of the information to criminally investigate or prosecute any alcohol or drug abuse patient.[facility] HospitalIn the event this information is protected by the Federal Confidentiality of Alcohol and Drug Abuse Patient Records regulations: The Federal rules restrict any use of the information to criminally investigate or prosecute any alcohol or drug abuse patient.[facility] HospitalIn the event this information is protected by the Federal Confidentiality of Alcohol and Drug Abuse Patient Records regulations: The Federal rules restrict any use of the information to criminally investigate or prosecute any alcohol or drug abuse patient.[facility] HospitalIn the event this information is protected by the Federal Confidentiality of Alcohol and Drug Abuse Patient Records regulations: The Federal rules restrict any use of the information to criminally investigate or prosecute any alcohol or drug abuse patient.[facility] HospitalIn the event this information is protected by the Federal Confidentiality of Alcohol and Drug Abuse Patient Records regulations: The Federal rules restrict any use of the information to criminally investigate or prosecute any alcohol or drug abuse patient.[facility] HospitalIn the event this information is protected by the Federal Confidentiality of Alcohol and Drug Abuse Patient Records regulations: The Federal rules restrict any use of the information to criminally investigate or prosecute any alcohol or drug abuse patient.[facility] HospitalIn the event this information is protected by the Federal Confidentiality of Alcohol and Drug Abuse Patient Records regulations: The Federal rules restrict any use of the information to criminally investigate or prosecute any alcohol or drug abuse patient.[facility] HospitalIn the event this information is protected by the Federal Confidentiality of Alcohol and Drug Abuse Patient Records regulations: The Federal rules restrict any use of the information to criminally investigate or prosecute any alcohol or drug abuse patient.[facility] HospitalIn the event this information is protected by the Federal Confidentiality of Alcohol and Drug Abuse Patient Records regulations: The Federal rules restrict any use of the information to criminally investigate or prosecute any alcohol or drug abuse patient.[facility] HospitalIn the event this information is protected by the Federal Confidentiality of Alcohol and Drug Abuse Patient Records regulations: The Federal rules restrict any use of the information to criminally investigate or prosecute any alcohol or drug abuse patient.[facility] HospitalIn the event this information is protected by the Federal Confidentiality of Alcohol and Drug Abuse Patient Records regulations: The Federal rules restrict any use of the information to criminally investigate or prosecute any alcohol or drug abuse patient.[facility] HospitalIn the event this information is protected by the Federal Confidentiality of Alcohol and Drug Abuse Patient Records regulations: The Federal rules restrict any use of the information to criminally investigate or prosecute any alcohol or drug abuse patient.[facility] HospitalIn the event this information is protected by the Federal Confidentiality of Alcohol and Drug Abuse Patient Records regulations: The Federal rules restrict any use of the information to criminally investigate or prosecute any alcohol or drug abuse patient.[facility] HospitalIn the event this information is protected by the Federal Confidentiality of Alcohol and Drug Abuse Patient Records regulations: The Federal rules restrict any use of the information to criminally investigate or prosecute any alcohol or drug abuse patient.[facility] HospitalIn the event this information is protected by the Federal Confidentiality of Alcohol and Drug Abuse Patient Records regulations: The Federal rules restrict any use of the information to criminally investigate or prosecute any alcohol or drug abuse patient.[facility] HospitalIn the event this information is protected by the Federal Confidentiality of Alcohol and Drug Abuse Patient Records regulations: The Federal rules restrict any use of the information to criminally investigate or prosecute any alcohol or drug abuse patient.[facility] HospitalIn the event this information is protected by the Federal Confidentiality of Alcohol and Drug Abuse Patient Records regulations: The Federal rules restrict any use of the information to criminally investigate or prosecute any alcohol or drug abuse patient.[facility] HospitalIn the event this information is protected by the Federal Confidentiality of Alcohol and Drug Abuse Patient Records regulations: The Federal rules restrict any use of the information to criminally investigate or prosecute any alcohol or drug abuse patient.[facility] HospitalIn the event this information is protected by the Federal Confidentiality of Alcohol and Drug Abuse Patient Records regulations: The Federal rules restrict any use of the information to criminally investigate or prosecute any alcohol or drug abuse patient.[facility] HospitalIn the event this information is protected by the Federal Confidentiality of Alcohol and Drug Abuse Patient Records regulations: The Federal rules restrict any use of the information to criminally investigate or prosecute any alcohol or drug abuse patient.[facility] HospitalIn the event this information is protected by the Federal Confidentiality of Alcohol and Drug Abuse Patient Records regulations: The Federal rules restrict any use of the information to criminally investigate or prosecute any alcohol or drug abuse patient.[facility] HospitalIn the event this information is protected by the Federal Confidentiality of Alcohol and Drug Abuse Patient Records regulations: The Federal rules restrict any use of the information to criminally investigate or prosecute any alcohol or drug abuse patient.[facility] HospitalIn the event this information is protected by the Federal Confidentiality of Alcohol and Drug Abuse Patient Records regulations: The Federal rules restrict any use of the information to criminally investigate or prosecute any alcohol or drug abuse patient.[facility] HospitalIn the event this information is protected by the Federal Confidentiality of Alcohol and Drug Abuse Patient Records regulations: The Federal rules restrict any use of the information to criminally investigate or prosecute any alcohol or drug abuse patient.[facility] HospitalIn the event this information is protected by the Federal Confidentiality of Alcohol and Drug Abuse Patient Records regulations: The Federal rules restrict any use of the information to criminally investigate or prosecute any alcohol or drug abuse patient.[facility] HospitalIn the event this information is protected by the Federal Confidentiality of Alcohol and Drug Abuse Patient Records regulations: The Federal rules restrict any use of the information to criminally investigate or prosecute any alcohol or drug abuse patient.[facility] HospitalIn the event this information is protected by the Federal Confidentiality of Alcohol and Drug Abuse Patient Records regulations: The Federal rules restrict any use of the information to criminally investigate or prosecute any alcohol or drug abuse patient.[facility] HospitalIn the event this information is protected by the Federal Confidentiality of Alcohol and Drug Abuse Patient Records regulations: The Federal rules restrict any use of the information to criminally investigate or prosecute any alcohol or drug abuse patient.[facility] HospitalIn the event this information is protected by the Federal Confidentiality of Alcohol and Drug Abuse Patient Records regulations: The Federal rules restrict any use of the information to criminally investigate or prosecute any alcohol or drug abuse patient.[facility] HospitalIn the event this information is protected by the Federal Confidentiality of Alcohol and Drug Abuse Patient Records regulations: The Federal rules restrict any use of the information to criminally investigate or prosecute any alcohol or drug abuse patient.[facility] HospitalIn the event this information is protected by the Federal Confidentiality of Alcohol and Drug Abuse Patient Records regulations: The Federal rules restrict any use of the information to criminally investigate or prosecute any alcohol or drug abuse patient.[facility] HospitalIn the event this information is protected by the Federal Confidentiality of Alcohol and Drug Abuse Patient Records regulations: The Federal rules restrict any use of the information to criminally investigate or prosecute any alcohol or drug abuse patient.[facility] HospitalIn the event this information is protected by the Federal Confidentiality of Alcohol and Drug Abuse Patient Records regulations: The Federal rules restrict any use of the information to criminally investigate or prosecute any alcohol or drug abuse patient.[facility] HospitalIn the event this information is protected by the Federal Confidentiality of Alcohol and Drug Abuse Patient Records regulations: The Federal rules restrict any use of the information to criminally investigate or prosecute any alcohol or drug abuse patient.[facility] HospitalIn the event this information is protected by the Federal Confidentiality of Alcohol and Drug Abuse Patient Records regulations: The Federal rules restrict any use of the information to criminally investigate or prosecute any alcohol or drug abuse patient.[facility] HospitalIn the event this information is protected by the Federal Confidentiality of Alcohol and Drug Abuse Patient Records regulations: The Federal rules restrict any use of the information to criminally investigate or prosecute any alcohol or drug abuse patient.[facility] HospitalIn the event this information is protected by the Federal Confidentiality of Alcohol and Drug Abuse Patient Records regulations: The Federal rules restrict any use of the information to criminally investigate or prosecute any alcohol or drug abuse patient.[facility] Reason for Visit (unrecogniz ed section and content) Reason Onset Date Comments Yearly Exam 04/01/2022 Reason Comments Received Outside Medical Records Reason Comments Care Reason Comments OB N/V Reason Onset Date Comments Care 06/07/2022 Reason Comments Breast Pump Order Reason Comments OB Vomiting Reason Onset Date Comments Care 09/05/2022 Reason Onset Date Comments Care 09/20/2022 Reason Onset Date Comments Care 10/03/2022 Reason Onset Date Comments Care 11/04/2022 Reason Onset Date Comments Care 11/19/2022 Reason Onset Date Comments Care 11/25/2022 Reason Onset Date Comments Care 12/09/2022 Reason Onset Date Comments Care 12/13/2022 Reason Onset Date Comments Care 12/16/2022 Reason Comments Early Reason Comments Well Woman Reason Comments Follow-up Re establish and co right ear plugged Reason Comments Nausea & Vomiting Reason Comments Initial OB Visit Reason Comments Establish Care Reason Comments US Specialty Diagnoses / Procedures Referred By Contac t Referred To Contact [facility] Diagnoses with uncertain dates, antepartum 8 weeks gestation of Screen for STD (sexually transmitted disease) Procedures OBSTETRIC ULTRASOUND WHI US PREG UTERUS AFTER 1ST TRIMEST GESTATION Marielle Jiménez, FRED.SEWING MACHINE ADJUSTER [address] [place] [address] Phone: tel: fax: [facility] [address] [place] [address] Referral ID Status Reason Start Date Expiration Date V isits Requested Visits Authorized [id number] Closed Auto-Generate d Referral 07/20/2024 07/20/2025 1 1 Reason Onset Date Comments Care 08/17/2024 Reason Comments breast pump Reason Onset Date Comments Care 10/13/2024 Specialty Diagnoses / Procedures Referred By Contac t Referred To Contact [facility] Diagnoses with uncertain dates, antepartum (HCC) 8 weeks gestation of (HCC) Screen for STD (sexually transmitted disease) Procedures OBSTETRIC ULTRASOUND WHI US PREG UTERUS AFTER 1ST TRIMEST GESTATION Marielle Jiménez APRN.SEWING MACHINE ADJUSTER [address] [place] [address] Phone: tel: fax: [facility] [address] [place] [address] Referral ID Status Reason Start Date Expiration Date V isits Requested Visits Authorized [id number] Closed Auto-Generate d Referral 07/20/2024 07/20/2025 1 1 Reason Onset Date Comments Care 11/10/2024 Reason Onset Date Comments Care 12/08/2024 Reason Onset Date Comments Care 12/22/2024 Reason Onset Date Comments Care 01/19/2025 Reason Onset Date Comments Care 02/02/2025 Reason Onset Date Comments Care 02/09/2025 Reason Onset Date Comments Population Health Navigation Outreach 02/10/2025 to PCP/OB Reason Onset Date Comments Care 02/16/2025 Care Teams (unrecognized sec tion and content) Intelligence Support Officer Relationship Specialty Start Date End Date Ana Boateng CNP PCP - General Family Medicine 02/25/20 Intelligence Support Officer Relationship Specialty Start Date End Date Ana Boateng CNP PCP - General Family Medicine 02/25/20 Intelligence Support Officer Relationship Specialty Start Date End Date Ana Boateng CNP PCP - General Family Medicine 02/25/20 Intelligence Support Officer Relationship Specialty Start Date End Date Ana Boateng CNP PCP - General Family Medicine 02/25/20 Intelligence Support Officer Relationship Specialty Start Date End Date Ana Boateng CNP PCP - General Family Medicine 02/25/20 Intelligence Support Officer Relationship Specialty Start Date End Date Ana Boateng CNP PCP - General Family Medicine 02/25/20 Intelligence Support Officer Relationship Specialty Start Date End Date Ana Boateng CNP PCP - General Family Medicine 02/25/20 Intelligence Support Officer Relationship Specialty Start Date End Date Ana Boateng CNP PCP - General Family Medicine 02/25/20 Intelligence Support Officer Relationship Specialty Start Date End Date Ana Boateng CNP PCP - General Family Medicine 02/25/20 Intelligence Support Officer Relationship Specialty Start Date End Date Ana Boateng CNP PCP - General Family Medicine 02/25/20 Team Status: Active Member Role Status Dates Out of [facility] Doctor Family Provider Active No Primary Care Physician Primary Care Provider Active Team Status: Inactive Member Role Status Dates Dr. Lucas Ferris , DO Emergency Provider Active No Primary Care Physician Primary Care Provider Active Intelligence Support Officer Relationship Specialty Start Date End Date Ana Boateng CNP PCP - General Family Medicine 02/25/20 Intelligence Support Officer Relationship Specialty Start Date End Date Ana Boateng CNP PCP - General Family Medicine 02/25/20 Intelligence Support Officer Relationship Specialty Start Date End Date Ana Boateng CNP PCP - General Family Medicine 02/25/20 Intelligence Support Officer Relationship Specialty Start Date End Date Ana Boateng CNP PCP - General Family Medicine 02/25/20 Intelligence Support Officer Relationship Specialty Start Date End Date Ana Boateng CNP PCP - General Family Medicine 02/25/20 Intelligence Support Officer Relationship Specialty Start Date End Date Ana Boateng CNP PCP - General Family Medicine 02/25/20 Intelligence Support Officer Relationship Specialty Start Date End Date Ana Boateng CNP PCP - General Family Medicine 02/25/20 Intelligence Support Officer Relationship Specialty Start Date End Date Mindy BoatengferBECCA PCP - General Family Medicine 02/25/20 Intelligence Support Officer Relationship Specialty Start Date End Date Ana Boateng CNP PCP - General Family Medicine 02/25/20 Intelligence Support Officer Relationship Specialty Start Date End Date Generic Provider, [place] [address] PCP - General Landscape Gardener 02/10/24 Intelligence Support Officer Relationship Specialty Start Date End Date Ana Boateng CNP PCP - General Family Medicine 02/25/20 Intelligence Support Officer Relationship Specialty Start Date End Date Ana Boateng CNP PCP - General Family Medicine 02/25/20 Intelligence Support Officer Relationship Specialty Start Date End Date Ana Boateng CNP PCP - General Family Medicine 02/25/20 Intelligence Support Officer Relationship Specialty Start Date End Date Alfredo Duran MD [address] [place], [place] [address] PCP - General Family Medicine 08/17/24 Jeannie Taylor APRN.CNP [address] [place], [place] [id number] Family Medicine 08/17/24 Intelligence Support Officer Relationship Specialty Start Date End Date Alfredo Duran MD [address] [place] [address] PCP - General Family Medicine 08/17/24 Podlogar, FRED Dennis.SEWING MACHINE ADJUSTER [address] [place] [address] Family Medicine 08/17/24 Intelligence Support Officer Relationship Specialty Start Date End Date Alfredo Duran MD [address] [place] [address] PCP - General Family Medicine 08/17/24 Podlogar, MAGDI DennisN.SEWING MACHINE ADJUSTER [address] [place] [address] Family Medicine 08/17/24 Intelligence Support Officer Relationship Specialty Start Date End Date Ana Boateng CNP PCP - General Family Medicine 02/25/20 08/16/24 Alfredo Duran MD [address] [place] [address] PCP - General Family Medicine 08/17/24 Podlogar, Jeannie SITE CONTROLLER.SEWING MACHINE ADJUSTER [address] [place] [address] Family Medicine 08/17/24 Podlogar, Jeannie SITE CONTROLLER.SEWING MACHINE ADJUSTER [address] [place] [address] Bow Making Machine Operator Family Medicine 08/23/24 Jasmina Leo APRN.SEWING MACHINE ADJUSTER [address] [facility] [place] [address] Bow Making Machine Operator Family Medicine 08/23/24 Intelligence Support Officer Relationship Specialty Start Date End Date Alfredo Duran MD [address] [place] [address] PCP - General Family Medicine 08/17/24 Podlogar, Jeannie, SITE CONTROLLER.SEWING MACHINE ADJUSTER [address] [place] [address] Family Medicine 08/17/24 Podlogar, Jeannie SITE CONTROLLER.SEWING MACHINE ADJUSTER [address] [place] [address] Bow Making Machine Operator Family Medicine 08/23/24 Jasmina Leo APRN.SEWING MACHINE ADJUSTER [address] [facility] [place] [address] Bow Making Machine Operator Family Medicine 08/23/24 Intelligence Support Officer Relationship Specialty Start Date End Date Alfredo Duran MD [address] [place] [address] PCP - General Family Medicine 08/17/24 Podlogar, Jeannie, SITE CONTROLLER.SEWING MACHINE ADJUSTER [address] [place] [address] Family Medicine 08/17/24 Podlogar, Jeannie, SITE CONTROLLER.SEWING MACHINE ADJUSTER [address] [place] [address] Bow Making Machine Operator Family Medicine 08/23/24 Jasmina Leo APRN.SEWING MACHINE ADJUSTER [address] [facility] [place] [address] Bow Making Machine Operator Family Medicine 08/23/24 Intelligence Support Officer Relationship Specialty Start Date End Date Alfredo Duran MD [address] [place] [address] PCP - General Family Medicine 08/17/24 Podlogar, Jeannie, SITE CONTROLLER.SEWING MACHINE ADJUSTER [address] [place] [address] Family Medicine 08/17/24 Podlogar, Jeannie, SITE CONTROLLER.SEWING MACHINE ADJUSTER [address] [place] [address] Bow Making Machine Operator Family Medicine 08/23/24 Jasmina Leo SITE CONTROLLER.SEWING MACHINE ADJUSTER [address] [facility] [place] [address] Bow Making [facility] 08/23/24 Intelligence Support Officer Relationship Specialty Start Date End Date Alfredo Duran MD [address] [place] [address] PCP - General Family Medicine 08/17/24 Podlogar, Jeannie, SITE CONTROLLER.SEWING MACHINE ADJUSTER [address] [place] [address] Family Medicine 08/17/24 Podlogar, Jeannie, SITE CONTROLLER.SEWING MACHINE ADJUSTER [address] [place] [address] Bow Making Machine Operator Family Medicine 08/23/24 Intelligence Support Officer Relationship Specialty Start Date End Date Alfredo Duran MD [address] [place] [address] PCP - General Family Medicine 08/17/24 Podlogar, Jeannie, SITE CONTROLLER.SEWING MACHINE ADJUSTER [address] [place] [address] Family Medicine 08/17/24 PodlogarJeannie APRN.SEWING MACHINE ADJUSTER [address] [place] [address] Bow Making Machine Operator Family Medicine 08/23/24 Jasmina Leo APRN.SEWING MACHINE ADJUSTER [address] [facility] [place] [address] Bow Making Machine Operator Family Medicine 11/11/24 Intelligence Support Officer Relationship Specialty Start Date End Date Alfredo Duran MD [address] [place] [address] PCP - General Family Medicine 08/17/24 Podlogar, FRED Dennis.SEWING MACHINE ADJUSTER [address] [place] [address] Family Medicine 08/17/24 PodlogarJeannie APRN.SEWING MACHINE ADJUSTER [address] [place] [address] Bow Making Machine Operator Family Medicine 08/23/24 Jasmina Leo APRN.SEWING MACHINE ADJUSTER [address] [facility] [place] [address] Bow Making Machine Operator Family Medicine 11/11/24 Intelligence Support Officer Relationship Specialty Start Date End Date Alfredo Duran MD [address] [place] [address] PCP - General Family Medicine 08/17/24 Podlogar, Jeannie, SITE CONTROLLER.SEWING MACHINE ADJUSTER [address] [place] [address] Family Medicine 08/17/24 Podlogar, Jeannie SITE CONTROLLER.SEWING MACHINE ADJUSTER [address] [place] [address] [facility] 08/23/24 Jasmina Leo, SITE CONTROLLER.SEWING MACHINE ADJUSTER [address] [facility] [place] [address] [facility] 11/11/24 Intelligence Support Officer Relationship Specialty Start Date End Date Alfredo Duran MD [address] [place] [address] PCP - General Family Medicine 08/17/24 Podlogar, Jeannie, SITE CONTROLLER.SEWING MACHINE ADJUSTER [address] [place] [address] Family Medicine 08/17/24 Podlogar, Jeannie, SITE CONTROLLER.SEWING MACHINE ADJUSTER [address] [place] [address] [facility] 08/23/24 Jasmina Leo, SITE CONTROLLER.SEWING MACHINE ADJUSTER [address] [facility] [place] [address] [facility] 11/11/24 Intelligence Support Officer Relationship Specialty Start Date End Date Alfredo Duran MD [address] [place] [address] PCP - General Family Medicine 08/17/24 Podlogar, Jeannie, SITE CONTROLLER.SEWING MACHINE ADJUSTER [address] [place] [address] Family Medicine 08/17/24 Jeannie Taylor APRN.SEWING MACHINE ADJUSTER [address] [facility], [place] [address] [facility] 08/23/24 Jasmina Leo APRN.SEWING MACHINE ADJUSTER [address] [facility] [place], [place] [address] [facility] 11/11/24 Intelligence Support Officer Relationship Specialty Start Date End Date Alfredo Duran MD [address] [facility], [place] [address] PCP - General Family Medicine 08/17/24 Jeannie Taylor APRN.SEWING MACHINE ADJUSTER [address] [facility], [place] [address] Family Medicine 08/17/24 Jeannie Taylor APRN.SEWING MACHINE ADJUSTER [address] [facility], [place] [address] [facility] 08/23/24 Jasmina Leo APRN.SEWING MACHINE ADJUSTER [address] [facility] [place], [place] [address] [facility] 11/11/24 FOR RECORDS PERTAINING TO PATIENTS WHO ARE OR HAVE BEEN ENROLLED IN A CHEMICAL DEPENDENCY/SUBSTANCEABUSE PROGRAM, SOME INFORMATION MAY BE OMITTED. This clinical summary was aggregated from multiple sources. Caution should be exercised in using it in the provision of clinical care. This summary normalizes information from multiple sources, and as a consequence, information in this document may materially change the coding, format and clinical context of patient data. In addition, data may be omitted in some cases. CLINICAL DECISIONS SHOULD BE BASED ON THE PRIMARY CLINICAL RECORDS. [employer] [facility]. provides no warranty or guarantee of the accuracy or completeness of information in this document.
[2025-02-19 23:14] VITALS: BMI 26.6
[2025-02-19 23:22] VITALS: TEMP 36.8
[2025-02-19 23:24] VITALS: BP 111/67; PULSE 74; RESP 16; TEMP 36.8; O2SAT 96
[2025-02-20] VITALS (43 sets, daily range): BP systolic 98–111; BP diastolic 56–68; PULSE 60–89; RESP 16–20; TEMP 36.4–37.6; O2SAT 16–100
[2025-02-20 00:13] LABS: ROM Internal Control Test YES-OK TO RESULT pt. (Internal QC); ROM Patient Test Negative (Negative); Record Kit Lot#, ROM+ K3358
[2025-02-20] MEDS: 0.9% Saline Lock 10 ML Syringe IV ×3 (02:15→07:47)
[2025-02-20 02:37] LABS: Hematocrit 34.9 % (37-47); Hemoglobin 11.8 g/dL (12.0-15.0); Immature Granulocytes Count 0.080 X10^3/uL (0.0-0.0); Mean Corp Hgb Conc 33.8 g/dL (32-36); Mean Corpuscular Volume 92.8 fL (81-99); Mean Platelet Vol. 10.7 fl (6.2-12.0); NRBC Flagged by Analyzer 0 % (0-5); Platelet Count 234 K/mm3 (150-450); RBC Distribution Width CV 13.6 % (11.6-14.6); RBC Distribution Width SD 46.3 fl (35.1-43.9); Red Blood Count 3.76 M/mm3 (4.2-5.4); White Blood Count 10.2 K/mm3 (4.4-11.0)
[2025-02-20 03:23] LABS: Syphilis Antibodies Nonreactive (Nonreactive)
--- NOTE | 2025-02-20 03:30 | PCM.PN.OB ---
Subjective Subjective AROM for clear fluid. 6 cm. No epidural desired. Objective Data Objective Data Vital Signs: Vital Signs Temp Pulse Resp BP Pulse Ox 98.4 F 76 16 108/68 97 02/20/25 02:48 02/20/25 02:48 02/20/25 02:48 02/20/25 02:48 02/20/25 02:48 Weight: 68.311 kg Body Mass Index (BMI) 26.6 Lab / Micro Data 02/20/25 02:15 Labs: Laboratory Results - last 24 hr 02/19/25 23:33: Vag Amniotic Fld Detect Negative 02/20/25 02:15: WBC 10.2, RBC 3.76 L, Hgb 11.8 L, Hct 34.9 L, MCV 92.8, MCH 31.4, MCHC 33.8, RDW Std Deviation 46.3 H, RDW Coeff of Haresh 13.6, Plt Count 234, MPV 10.7, Immature Gran % (Auto) 0.800, Neut % (Auto) 74.5 H, Lymph % (Auto) 15.7 L, [place] % (Auto) 7.9, Eos % (Auto) 0.7, Baso % (Auto) 0.4, Absolute Neuts (auto) 7.6, Absolute Lymphs (auto) 1.60, Nucleated RBC % 0, Syphilis Total Ab Nonreactive NST FHR Rate Baby A Baseline: 140 Variability:: Moderate Accelerations:: 15 x 15 Decelerations:: None FHR Category:: Category I Assessment & Plan (1) 39 weeks gestation of : (2) Normal labor: PLAN: Plan Expectant management
[2025-02-20] MEDS: Oxytocin 15 Units/NS 250ml 15 UNITS/250 ML IV.SOLN 334 UNITS IV (04:02)
[2025-02-20] MEDS: Lidocaine 1% (20 ml mdv) 20 ML Vial INFILT (04:07)
--- NOTE | 2025-02-20 04:27 | HP.PCM.OB_ITS ---
HPI - General General Date of Admission: 02/20/25 Date of Service: 02/20/25 Chief Complaint: contractions HPI Narrative CATHY BALLESTEROS, is a 34 F who presents worsening contractions. Admitted at 6 cm for labor. GBS negative Maternal Data Information Final DEAN: 02/24/25 Gestational age: 39+2 PFSH PFS Medical History Infertility Vaginal delivery PCOS (polycystic ovarian syndrome) Anxiety History of hypothyroidism Migraines Home Medications ?Medication ?Instructions ?Recorded ?Last Taken ?Type folic acid 1 mg tablet 1 mg PO DAILY 02/19/25 Unkno wn History Allergy/AdvReac Type Severity Reaction Status Date / Time No Known Allergies Allergy Verified 02/19/25 23:59 Surgical History History of tonsillectomy and adenoidectomy Vandervoort teeth removed History of cholecystectomy Social History Smoking Status: Never smoker History 3 Elective abortions Hx Para 2 Spontaneous abortions Hx # Term Pregnancies Ectopic pregnancies Hx # Pregnancies Multiple births # of living children ROS Constitutional Constitutional: Denies fatigue, fever(s) or malaise Eyes Eyes: Denies change in vision ENT HEENT: Denies dizziness or headache(s) Cardiovascular Cardiovascular: Denies chest pain, dyspnea or lightheadedness Respiratory/Chest Respiratory/Chest: Denies cough or dyspnea Gastrointestinal Gastrointestinal: Denies change in bowel habits Genitourinary Genitourinary: Denies burning urination or genital lesions Integumentary Integumentary: Denies rash Neurologic Neurologic: Denies confusion, dizziness, headache(s), numbness or weakness Vital Signs Vital Signs Vital Signs: 02/19/25 23:22 02/19/25 23:24 02/19/25 23:24 Temperature 98.2 F Temperature Source Pulse Rate 74 Respiratory Rate Blood Pressure 111/67 BP Systolic 111 BP Diastolic 67 Pulse Ox 02/19/25 23:24 02/19/25 23:24 02/19/25 23:24 Temperature Temperature Source Temporal Pulse Rate Respiratory Rate 16 Blood Pressure BP Systolic BP Diastolic Pulse Ox 96 02/19/25 23:24 02/20/25 02:48 02/20/25 02:48 Temperature 98.3 F Temperature Source Pulse Rate 76 Respiratory Rate Blood Pressure 108/68 BP Systolic 108 BP Diastolic 68 Pulse Ox 02/20/25 02:48 02/20/25 02:48 02/20/25 02:48 Temperature 98.4 F Temperature Source Temporal Pulse Rate Respiratory Rate Blood Pressure BP Systolic BP Diastolic Pulse Ox 97 02/20/25 02:48 02/20/25 04:19 02/20/25 04:19 Temperature Temperature Source Pulse Rate 86 Respiratory Rate 16 Blood Pressure BP Systolic BP Diastolic Pulse Ox 100 02/20/25 04:20 02/20/25 04:20 02/20/25 04:20 Temperature Temperature Source Temporal Pulse Rate 82 Respiratory Rate Blood Pressure 109/63 BP Systolic 109 BP Diastolic 63 Pulse Ox 02/20/25 04:20 02/20/25 04:21 02/20/25 04:24 Temperature 98.4 F Temperature Source Pulse Rate 87 Respiratory Rate 18 Blood Pressure BP Systolic BP Diastolic Pulse Ox 02/20/25 04:24 Temperature Temperature Source Pulse Rate Respiratory Rate Blood Pressure BP Systolic BP Diastolic Pulse Ox 99 Weight Weight: 68.311 kg Body Mass Index (BMI) 26.6 Physical Exam Const alert and no apparent distress General Appearance: cooperative HEENT normocephalic Resp normal respiratory effort Cardio regular rate GI soft to palpation GI Narrative: gravid, nontender, appropriate for gestational age Extremity no calf tenderness General Extremity: edema Skin no wounds Rashes: No rashes noted Psych activity/motor behavior normal Labs Labs Labs: Blood Type O POSITIVE Antibody Screen NEGATIVE Hct, (37-47) 34.9 % L Hgb, (12.0-15.0) 11.8 g/dL L Syphilis Total Ab, (Nonreactive) Nonreactive Rhogam given: No Assessment & Plan (1) Normal labor: (2) 39 weeks gestation of : PLAN: Plan admit for labor
--- NOTE | 2025-02-20 04:27 | EX.PCM.OBVAG ---
Assessment & Plan (1) (spontaneous vaginal delivery): Maternal Data Information Final DEAN: 02/24/25 Gestational age: 39+2 Vaginal Delivery Maternal Presentation Maternal Presentation: Active Labor Vaginal Delivery Information Procedure Performed: Spontaneous Vaginal Delivery Surgeon/Practitioner: Ana Hilario Date of Procedure: 02/20/25 Pre-Procedure Diagnosis: labor Post-Procedure Diagnosis: Type of anesthesia: None and Local with 1% Lidocaine Estimated Blood Loss: 200 cc Time of Delivery: 03:59 Findings Description of procedure: Presented in active labor. AROM for clear fluid. Rapidly progressed to complete and delivered without pushing. There was hand below the chin. The arm was gently brought across the chest and the shoulders and body delivered spontaneously. The cord was short. The cord was clamped and cut at one minute and then the infant placed on moms chest. The placenta was delivered with gentle traction. The fundus was massaged. A first degree laceration was injected with 1% lidocaine and then repaired with 2-0 Vicryl. All sponge, needle and instrument counts were correct Presentation: Vertex and TEJ Amniotic Membrane Rupture Type: Artificial Amniotic Fluid Description: Clear Placental Delivery Description: Spontaneous Placenta Disposition: [facility] Specimen collected: No Cord Vessel Description: 3 Vessels Cord Entanglement: None Infant A Gender: Female (1 minute): 8 (5 minute): 9 Delayed Cord Clamping: Yes Test Engine Evaluator packing inspector: No Post Vaginal Deli Medications given after delivery: IV Pitocin Episiotomy Description: None Laceration: Midline and 1st degree Complication Complications: No
[2025-02-20] MEDS: Oxytocin 15 Units/NS 250ml 15 UNITS/250 ML IV.SOLN 83 UNITS IV (04:36)
--- NOTE | 2025-02-20 08:29 | NURSING ---
All late entry charting done on this pt due to unit acuity and pt care.
--- OUTSIDE RECORDS SUMMARY | 2025-02-20 09:47 | XMS RPT_ITS | CCD ---
Author Organization [facility] CliniSynm Care Team Providers Care Front Worker Name Role Phone KALYAN, PAULETTE B Unavailable Unavailable KALYAN, PAULETTE B Unavailable Unavailable KALYAN, PAULETTE B Unavailable Unavailable KALYAN, PAULETTE B Unavailable Unavailable KALYAN, PAULETTE B Unavailable Unavailable KALYAN, PAULETTE B Unavailable Unavailable Sulove, Saksham Unavailable Unavailable KALYAN, PAULETTE B Unavailable Unavailable KALYAN, PAULETTE B Unavailable Unavailable KALYAN, PAULETTE B Unavailable Unavailable KALYAN, PAULETTE B Unavailable Unavailable Ana Boateng Unavailable [phone] Unavailable Unavailable Frida Lieberman Unavailable Unavailable Unavailable Unavailable Unavailable None, No PCP Unavailable Unavailable Ana Boateng CNP Primary Care Provider [phone] Ana Boateng CNP Primary Care Provider [phone] Ana Boateng CNP Primary Care Provider Generic Provider MD, No Assigned Pcp Primary Car e Provider Unavailable [facility] Attending Unavailable GENERIC PROVIDER, NO ASSIGNED PCP Primary Care Unavailable Maxim Francisco Attending Unavailable Care Physician, No Primary Primary Care Unava ilAlfredo Verma MD Primary Care Provider [employer] COMMUNICATION[employer] PROFESSIONAL.Jeannie HUDSON Unavailable Ana Boateng CNP Primary Care Provider [phone] [employer] PROFESSIONAL.Jeannie HUDSON Unavailable Ahmet COMMUNICATIONS PROFESSIONAL.Jasmina HUDSON Unavailable Ahmet COMMUNICATIONS PROFESSIONAL.Jasmina HUDSON Unavailable BURSLEY, CHRISTOPHER B Primary Care Unavailab ETHEL Danileson Attending Unavailable BURSLEY, CHRISTOPHER B Primary Care [...] adverse reactions to drug (disorder) [facility] Repository (1 source) Environmental allergy; Translations: [Environmental] Propensity to adverse reactions (disorder) [facility] Repository (1 source) [place] Animal[place]; Translations: [Animals] Propensity to adverse reactions to drug (disorder) [facility] Repository (1 source) Pollen; Translations: [Pollen] Propensity to adverse reactions to drug (disorder) [facility] Repository (1 source) Tree; Translations: [Trees] Propensity to adverse reactions to drug (disorder) [facility] Repository (1 source) Sun; Translations: [Sun] Propensity to adverse reactions to drug (disorder) [facility] Repository (1 source) Grass; Translations: [Grass] Propensity to adverse reactions to drug (disorder) [facility] Repository NEGATED: Highlighted row has been ruled out! (3 sources) natural latex rubber; Translations: [LATEX, NATURAL RUBBER] Drug allergy (disorder) [facility] NEGATED: Highlighted row has been ruled out! (3 sources) No IV Contrast Allergy.; Translations: [IV Dye, Iodine Containing] Drug allergy (disorder) [facility] Medications Current Medications Medication Drug Class(es) [...] Start: 08-03-2021 take 1 capsule by mo [facility] once daily Esomeprazole Magnesium 40 MG Oral [...] 25-Oct-2020 Seema Coates Start : 25-Oct-2020 Active Htnhbl-F03-Cdiiwmbog Factor (2 sources) Ezxojf-Q12-Osvtr ns icFactor folic acid 1 mg oral [...] of ; Translations: [20 weeks gestation of ([facility])] Onset: 10-13-2024 Episodic Residual codes; unclassified [...] 5 Glucose Ql (U) Negative Neg mg/dL [facility] Interpretation and review of laboratory results Normal [facility] Protein.monoclonal (U) [Mass/Vol] Negative Neg mg/dL [facility] URINE OB DIP B/Oon 5 Glucose Ql (U) Negative Neg mg/dL [facility] Interpretation and review of laboratory results Normal [facility] Protein.monoclonal (U) [Mass/Vol] Negative Neg mg/dL [facility] Free T4 [Mass/Vol]on 025 Interpretation and review of laboratory results Abnormal [facility] No Panel Informationon 02-02 [facility] ROUTINE, GROUP B ST REPTOCOCCUS BY PCRon 02-02-2025 ROUTINE, GROUP B STREPTOCOCCUS BY PCR Not detected Normal [facility] Comment on above: Performed By: #### T SPN #### [facility] CLIA [id number] [address] [place] [address] [place] T4 FREE/FREE THYROXINEon Free T4 [Mass/Vol] 0.8 ng/dL Low 0.9 - 1.7 ng/dL [facility] T4 Free SerPl-mCncon Free T4 [Mass/Vol] 0.8 ng/dL Low 0.9-1.7 [facility] Comment on above: Order Comment: Speci men Type: BLOOD SPECIMENOrdering Facility: [facility] Address: [address] [place] [address] Performed By: #### 3 016-3, 3024-7 ####[facility] LABCLIA [id number] [place] [address] [place] THYROID STIMULATING HORMONEo n 02-02-2025 TSH Qn 3.930 m[IU]/L [facility] Comment on above: If the patient is [...] E, et al. 2017 Guidelines of the [place] Thyroid Association for the Diagnosis and Management of Thyroid Disease during and the . Thyroid, 2017:27:3:315-389. TSH Qnon 02-02-2025 Interpretation and review of laboratory results Normal [facility] TSH SerPl-aCncon 02-02-2025 TSH Qn 3.930 m[IU]/L Normal 0.270-4.200 [facility] Comment on above: Order Comment: Speci men Type: BLOOD SPECIMENOrdering Facility: [facility] Address: [address] [place] [address] Result Comment: If t he patient is , TSH reference range varies by gestational period: First Trimester (weeks 9-12): 0.180-2.990 mIU/L Second Trimester: 0.110-3.980 mIU/L Third Trimester: 0.480-4.710 mIU/L Dionisio Meyers et al. A Practical Approach for the Verifications and Determination of Site- and Trimester-Specific Reference Intervals for Thyroid Function tests in . Thyroid, 2019:29:3:412-420. Héctor Arechiga, et al. 2017 Guidelines of the [place] Thyroid Association for the Diagnosis and Management of Thyroid Disease during and the . Thyroid, 2017:27:3:315-389. Performed By: #### 3 016-3, 3024-7 ####[facility] LABCLIA [id number] [place] [address] [place] URINE OB DIP B/Oon 5 Glucose Ql (U) Negative Neg mg/dL [facility] Interpretation and review of laboratory results Normal [facility] Protein.monoclonal (U) [Mass/Vol] Negative Neg mg/dL [facility] URINE OB DIP B/Oon 5 Glucose Ql (U) Negative Neg mg/dL [facility] Interpretation and review of laboratory results Normal [facility] Protein.monoclonal (U) [Mass/Vol] Negative Neg mg/dL [facility] CBC W Auto Differential pane l (Bld)on 12-08-2024 Basophils (Bld) [#/Vol] 0.03 10*3/uL Normal <0.11 [facility] Comment on above: Order Comment: Speci men Type: BLOOD SPECIMENOrdering Facility: [facility] Address: [address] [place] [address] Performed By: #### 5 7021-8 ####[facility] MILLWNCLIA [id number] [place] [address] [place] Basophils/100 WBC (Bld) 0.3 % Normal [facility] Comment on above: Order Comment: Speci men Type: BLOOD SPECIMENOrdering Facility: [facility] Address: [address] [place] [address] Performed By: #### 5 7021-8 ####[facility]IA [id number] [place] [address] [place] Differential cell count method Nom (Bld) Auto Normal [facility] Comment on above: Order Comment: Speci men Type: BLOOD SPECIMENOrdering Facility: [facility] Address: [address] [place] [address] Performed By: #### 5 7021-8 ####[facility]ITALLIA [id number] [place] [address] [place] Eosinophils (Bld) [#/Vol] 0.18 10*3/uL Normal <0.46 [facility] Comment on above: Order Comment: Speci men Type: BLOOD SPECIMENOrdering Facility: [facility] Address: [address] [place] [address] Performed By: #### 5 7021-8 ####[facility]ENTERWNCLIA [id number] [place] [address] [place] Eosinophils/100 WBC (Bld) 1.9 % Normal [facility] Comment on above: Order Comment: Speci men Type: BLOOD SPECIMENOrdering Facility: [facility] Address: [address] [place] [address] Performed By: #### 5 7021-8 ####[facility] HOSPITALNCLIA [id number] [place] [address] [place] Erythrocyte distribution width (RBC) [Ratio] 13.1 % Normal 11.5-15.0 [facility] Comment on above: Order Comment: Speci men Type: BLOOD SPECIMENOrdering Facility: [facility] Address: [address] [place] [address] Performed By: #### 5 7021-8 ####[facility] HOSPITALNCJUANITAA [id number] [place] [address] [place] Hematocrit (Bld) [Volume fraction] 33.5 % Low 36.0-46.0 [facility] Comment on above: Order Comment: Speci men Type: BLOOD SPECIMENOrdering Facility: [facility] Address: [address] [place] [address] Performed By: #### 5 7021-8 ####[facility]PITALNCUT[facility] [id number] [place] [address] [place] Hemoglobin (Bld) [Mass/Vol] 11.6 g/dL Normal 11.5-15.5 [facility] Comment on above: Order Comment: Speci men Type: BLOOD SPECIMENOrdering Facility: [facility] Address: [address] [place] [address] Performed By: #### 5 7021-8 ####[facility] HOSPITALNCLIA [id number] [place] [address] [place] Immature granulocytes (Bld) [#/Vol] 0.13 10*3/uL High <0.10 [facility] Comment on above: Order Comment: Speci men Type: BLOOD SPECIMENOrdering Facility: [facility] Address: [address] [place] [address] Performed By: #### 5 7021-8 ####[facility] HOSPITALNCLIA [id number] [place] [address] [place] Immature granulocytes/100 WBC (Bld) 1.4 % Normal [facility] Comment on above: Order Comment: Speci men Type: BLOOD SPECIMENOrdering Facility: [facility] Address: [address] [place] [address] Performed By: #### 5 7021-8 ####[facility] TARANNCLINDSAY [id number] [place] [address] [place] Lymphocytes (Bld) [#/Vol] 1.16 10*3/uL Normal 1.00-4.00 [facility] Comment on above: Order Comment: Speci men Type: BLOOD SPECIMENOrdering Facility: [facility] Address: [address] [place] [address] Performed By: #### 5 7021-8 ####[facility] HOSPITALGLENYSA [id number] [place] [address] [place] Lymphocytes/100 WBC (Bld) 12.4 % Normal [facility] Comment on above: Order Comment: Speci men Type: BLOOD SPECIMENOrdering Facility: [facility] Address: [address] [place] [address] Performed By: #### 5 7021-8 ####[facility] HOSPITALNCJUANITAA [id number] [place] [address] [place] MCH (RBC) [Entitic mass] 32.4 pg Normal 26.0-34.0 [facility] Comment on above: Order Comment: Speci men Type: BLOOD SPECIMENOrdering Facility: [facility] Address: [address] [place] [address] Performed By: #### 5 7021-8 ####[facility] HOSPITALNCLIA [id number] [place] [address] [place] MCHC (RBC) [Mass/Vol] 34.6 g/dL Normal 30.5-36.0 [facility] Comment on above: Order Comment: Speci men Type: BLOOD SPECIMENOrdering Facility: [facility] Address: [address] [place] [address] Performed By: #### 5 7021-8 ####[facility] MILLWNCLIA [id number] [place] [address] [place] MCV (RBC) [Entitic vol] 93.6 fL Normal 80.0-100.0 [facility] Comment on above: Order Comment: Speci men Type: BLOOD SPECIMENOrdering Facility: [facility] Address: [address] [place] [address] Performed By: #### 5 7021-8 ####[facility] HOSPITALNCLIA [id number] [place] [address] [place] Monocytes (Bld) [#/Vol] 0.75 10*3/uL Normal <0.87 [facility] Comment on above: Order Comment: Speci men Type: BLOOD SPECIMENOrdering Facility: [facility] Address: [address] [place] [address] Performed By: #### 5 7021-8 ####[facility] CENTERA [id number] [place] [address] [place] Monocytes/100 WBC (Bld) 8.0 % Normal [facility] Comment on above: Order Comment: Speci men Type: BLOOD SPECIMENOrdering Facility: [facility] Address: [address] [place] [address] Performed By: #### 5 7021-8 ####[facility]ITALLIA [id number] [place] [address] [place] Neutrophils (Bld) [#/Vol] 7.10 10*3/uL Normal 1.45-7.50 [facility] Comment on above: Order Comment: Speci men Type: BLOOD SPECIMENOrdering Facility: [facility] Address: [address] [place] [address] Performed By: #### 5 7021-8 ####[facility]ITALLIA [id number] [place] [address] [place] Neutrophils/100 WBC (Bld) 76.0 % Normal [facility] Comment on above: Order Comment: Speci men Type: BLOOD SPECIMENOrdering Facility: [facility] Address: [address] [place] [address] Performed By: #### 5 7021-8 ####[facility]ITALNCUT[facility] [id number] [place] [address] [place] Nucleated RBC (Bld) [#/Vol] 10*3/uL Normal <0.01 [facility] Comment on above: Order Comment: Speci men Type: BLOOD SPECIMENOrdering Facility: [facility] Address: [address] [place] [address] Performed By: #### 5 7021-8 ####[facility] [id number] [place] [address] [place] Nucleated RBC/100 WBC (Bld) [Ratio] 0.0 /100 WBC Normal [facility] Comment on above: Order Comment: Speci men Type: BLOOD SPECIMENOrdering Facility: [facility] Address: [address] [place] [address] Performed By: #### 5 7021-8 ####[facility] HOSPITALNCLI [id number] [place] [address] [place] Platelet mean volume (Bld) [Entitic vol] 9.5 fL Normal 9.0-12.7 [facility] Comment on above: Order Comment: Speci men Type: BLOOD SPECIMENOrdering Facility: [facility] Address: [address] [place] [address] Performed By: #### 5 7021-8 ####[facility] HOSPITALNCLI [id number] [place] [address] [place] Platelets (Bld) [#/Vol] 191 10*3/uL Normal 150-400 [facility] Comment on above: Order Comment: Speci men Type: BLOOD SPECIMENOrdering Facility: [facility] Address: [address] [place] [address] Performed By: #### 5 7021-8 ####[facility] HOSPITALNCLIA [id number] [place] [address] [place] RBC (Bld) [#/Vol] 3.58 10*6/uL Low 3.90-5.20 [facility] Comment on above: Order Comment: Speci men Type: BLOOD SPECIMENOrdering Facility: [facility] Address: [address] [place] [address] Performed By: #### 5 7021-8 ####[facility] HOSPITALNCA [id number] [place] [address] [place] WBC (Bld) [#/Vol] 9.35 10*3/uL Normal 3.70-11.00 [facility] Comment on above: Order Comment: Speci men Type: BLOOD SPECIMENOrdering Facility: [facility] Address: [address] [place] [address] Performed By: #### 5 7021-8 ####[facility]PITALLIA [id number] [place] [address] [place] GESTATIONAL GLUCOSE SCREEN, 1-HOUR, 50 GRAM, NON-FASTINGon 12-08-2024 Glucose [Mass/Vol] 105 mg/dL Normal 74-134 [facility] Comment on above: Order Comment: Speci men Type: BLOOD SPECIMEN [facility] Address: [address] [place], [place] [address] Result Comment: [facility] Congress of Obstetricians and Gynecologists (Prashant/Boo) guidelines state a gestational diabetes mellitus positive screen is made, in women not previously diagnosed with overt diabetes, when the 1 hr plasma glucose level is equal to or above 140 mg/dL. The [facility] [employer] recommends a 135 mg/dL cutoff. Performed By: #### T SPN #### [facility] CLIA [id number] [address] [place] [address] [place] Reagin and Treponema pallidu m IgG and IgM [Interp]on 12-08-2024 T. pallidum IgG+IgM IA Ql (S) Non-Reactive Normal Nonreactive [facility] Comment on above: Order Comment: Speci men Type: BLOOD SPECIMENOrdering Facility: [facility] Address: [address] [place] [address] Performed By: #### 7 3752-8 ####[facility] LABM[facility] [id number] [place] [address] [place] Reagin+T pallidum IgG+IgM Se rPl-Impon 12-08-2024 Reagin and Treponema pallidum IgG and IgM [Interp] Cannot exclude recent Treponemal infection if specimen collected within 7-10 days after appearance of suspect lesions or 2-3 weeks after an exposure. Clinical correlation is required. Normal [facility] Comment on above: Order Comment: Speci men Type: BLOOD SPECIMENOrdering Facility: [facility] Address: [address] [place] [address] Performed By: #### 7 3752-8 ####[facility] LABM[facility] [id number] [place] [address] [place] T4 Free SerPl-mCncon 025 Free T4 [Mass/Vol] 0.8 ng/dL Low 0.9-1.7 [facility] Comment on above: Order Comment: Speci men Type: BLOOD SPECIMENOrdering Facility: [facility] Address: [address] [place] [address] Performed By: #### 3 024-7, 3016-3 ####[facility] LABIA [id number] [place] [address] [place] TSH SerPl-aCncon 12-08-2024 TSH Qn 2.860 m[IU]/L Normal 0.270-4.200 [facility] Comment on above: Order Comment: Speci men Type: BLOOD SPECIMENOrdering Facility: [facility] Address: [address] [facility] [place] [address] Result Comment: If t he patient is , TSH reference range varies by gestational period: First Trimester (weeks 9-12): 0.180-2.990 mIU/L Second Trimester: 0.110-3.980 mIU/L Third Trimester: 0.480-4.710 mIU/L Dionisio Meyers et al. A Practical Approach for the Verifications and Determination of Site- and Trimester-Specific Reference Intervals for Thyroid Function tests in . Thyroid, 2019:29:3:412-420. Héctor Arechiga, et al. 2017 Guidelines of the [place] Thyroid Association for the Diagnosis and Management of Thyroid Disease during and the . Thyroid, 2017:27:3:315-389. Performed By: #### 3 024-7, 3016-3 ####[facility] LABCLIA [id number] [address] [place] CNCOon 11-29-2024 CNCO Letter Text Normal [facility] Examination level ultrasound on 10-13-2024 Indication Standard [...] Hadlock Femur 33.1 mm 20w 4d 44% Latonia Humerus 31.7 mm 20w 4d 36% [place] EFW 360 g 20w 3d 29% Hadlock EFW (lb) 0 lb EFW (oz) 13 oz EFW by: Hadlock (HC-AC-FL) Extended Metal Dealer 5.1 mm CM 4.9 mm 41% Nicolaides [...] normal LVOT view: normal 3-vessel view: normal 3-xgnxnl-yvkgbln view: normal Heart / Thorax Situs: situs [...] Read By: Roya Smith M.D. MATERNAL MEDICINE [facility] Radiology Study observation (narrative) [facility] Reginaldo 09-27-2024 BECCAN Telephone (OBGYWM) -------- RAMONA WAHL ([id number]) 1990 F Date Time Provider Department 09/27/24 PHILLIP CASTRO OBGYWEloina During your visit today, we recorded the following information about you: Fanny Virk, GENARO 09/27/2024 10:47 AM Signed [facility] Order to provider to sign. GENARO [...] Status:Closed by AKANKSHA FONSECA on 09/28/24 Normal [facility] CBC W Auto Differential pane l (Bld)on 08-17-2024 Basophils (Bld) [#/Vol] 0.03 10*3/uL Normal <0.11 [facility] Comment on above: Order Comment: Speci men Type: BLOOD SPECIMENOrdering Facility: [facility] Address: [address] [place] [address] Performed By: #### 5 7021-8 ####[facility] HAUTELINDSAY [id number] [place] [address] [place] Basophils/100 WBC (Bld) 0.3 % Normal [facility] Comment on above: Order Comment: Speci men Type: BLOOD SPECIMENOrdering Facility: [facility] Address: [address] [place] [address] Performed By: #### 5 7021-8 ####[facility] BOBWGLENYSLIA [id number] [place] [address] [place] Differential cell count method Nom (Bld) Auto Normal [facility] Comment on above: Order Comment: Speci men Type: BLOOD SPECIMENOrdering Facility: [facility] Address: [address] [place] [address] Performed By: #### 5 7021-8 ####[facility] BOBMILLEDGEVILLENCLIA [id number] [place] [address] [place] Eosinophils (Bld) [#/Vol] 0.28 10*3/uL Normal <0.46 [facility] Comment on above: Order Comment: Speci men Type: BLOOD SPECIMENOrdering Facility: [facility] Address: [address] [place] [address] Performed By: #### 5 7021-8 ####[facility] H[facility]PITALNCLIA [id number] [place] [address] [place] Eosinophils/100 WBC (Bld) 2.8 % Normal [facility] Comment on above: Order Comment: Speci men Type: BLOOD SPECIMENOrdering Facility: [facility] Address: [address] [place] [address] Performed By: #### 5 7021-8 ####[facility]ENTERWNCLIA [id number] [place] [address] [place] Erythrocyte distribution width (RBC) [Ratio] 14.3 % Normal 11.5-15.0 [facility] Comment on above: Order Comment: Speci men Type: BLOOD SPECIMENOrdering Facility: [facility] Address: [address] [place] [address] Performed By: #### 5 7021-8 ####[facility]ITAL[facility] [id number] [place] [address] [place] Hematocrit (Bld) [Volume fraction] 38.5 % Normal 36.0-46.0 [facility] Comment on above: Order Comment: Speci men Type: BLOOD SPECIMENOrdering Facility: [facility] Address: [address] [place] [address] Performed By: #### 5 7021-8 ####[facility] [id number] [place] [address] [place] Hemoglobin (Bld) [Mass/Vol] 12.9 g/dL Normal 11.5-15.5 [facility] Comment on above: Order Comment: Speci men Type: BLOOD SPECIMENOrdering Facility: [facility] Address: [address] [place] [address] Performed By: #### 5 7021-8 ####[facility] [id number] [place] [address] [place] Immature granulocytes (Bld) [#/Vol] 0.04 10*3/uL Normal <0.10 [facility] Comment on above: Order Comment: Speci men Type: BLOOD SPECIMENOrdering Facility: [facility] Address: [address] [place] [address] Performed By: #### 5 7021-8 ####[facility] [id number] [place] [address] [place] Immature granulocytes/100 WBC (Bld) 0.4 % Normal [facility] Comment on above: Order Comment: Speci men Type: BLOOD SPECIMENOrdering Facility: [facility] Address: [address] [place] [address] Performed By: #### 5 7021-8 ####[facility] HOSPITALNCLI [id number] [place] [address] [place] Lymphocytes (Bld) [#/Vol] 1.44 10*3/uL Normal 1.00-4.00 [facility] Comment on above: Order Comment: Speci men Type: BLOOD SPECIMENOrdering Facility: [facility] Address: [address] [place] [address] Performed By: #### 5 7021-8 ####[facility]ITALNC[facility] [id number] [place] [address] [place] Lymphocytes/100 WBC (Bld) 14.5 % Normal [facility] Comment on above: Order Comment: Speci men Type: BLOOD SPECIMENOrdering Facility: [facility] Address: [address] [place] [address] Performed By: #### 5 7021-8 ####[facility]ITALNC[facility] [id number] [place] [address] [place] MCH (RBC) [Entitic mass] 30.6 pg Normal 26.0-34.0 [facility] Comment on above: Order Comment: Speci men Type: BLOOD SPECIMENOrdering Facility: [facility] Address: [address] [place] [address] Performed By: #### 5 7021-8 ####[facility] [id number] [place] [address] [place] MCHC (RBC) [Mass/Vol] 33.5 g/dL Normal 30.5-36.0 [facility] Comment on above: Order Comment: Speci men Type: BLOOD SPECIMENOrdering Facility: [facility] Address: [address] [place] [address] Performed By: #### 5 7021-8 ####[facility] [id number] [place] [address] [place] MCV (RBC) [Entitic vol] 91.2 fL Normal 80.0-100.0 [facility] Comment on above: Order Comment: Speci men Type: BLOOD SPECIMENOrdering Facility: [facility] Address: [address] [place] [address] Performed By: #### 5 7021-8 ####[facility] MILLDELBERTWNCLIA [id number] [place] [address] [place] Monocytes (Bld) [#/Vol] 0.59 10*3/uL Normal <0.87 [facility] Comment on above: Order Comment: Speci men Type: BLOOD SPECIMENOrdering Facility: [facility] Address: [address] [place] [address] Performed By: #### 5 7021-8 ####[facility] MILLWGLENYSLIA [id number] [place] [address] [place] Monocytes/100 WBC (Bld) 6.0 % Normal [facility] Comment on above: Order Comment: Speci men Type: BLOOD SPECIMENOrdering Facility: [facility] Address: [address] [place] [address] Performed By: #### 5 7021-8 ####[facility]ITALNCL[facility] [id number] [place] [address] [place] Neutrophils (Bld) [#/Vol] 7.52 10*3/uL High 1.45-7.50 [facility] Comment on above: Order Comment: Speci men Type: BLOOD SPECIMENOrdering Facility: [facility] Address: [address] [place] [address] Performed By: #### 5 7021-8 ####[facility] MILLWNCLIA [id number] [place] [address] [place] Neutrophils/100 WBC (Bld) 76.0 % Normal [facility] Comment on above: Order Comment: Speci men Type: BLOOD SPECIMENOrdering Facility: [facility] Address: [address] [place] [address] Performed By: #### 5 7021-8 ####[facility] MILLMILLEDGEVILLENCLIA [id number] [place] [address] [place] Nucleated RBC (Bld) [#/Vol] 10*3/uL Normal <0.01 [facility] Comment on above: Order Comment: Speci men Type: BLOOD SPECIMENOrdering Facility: [facility] Address: [address] [place] [address] Performed By: #### 5 7021-8 ####[facility] [id number] [place] [address] [place] Nucleated RBC/100 WBC (Bld) [Ratio] 0.0 /100 WBC Normal [facility] Comment on above: Order Comment: Speci men Type: BLOOD SPECIMENOrdering Facility: [facility] Address: [address] [place] [address] Performed By: #### 5 7021-8 ####[facility] [id number] [place] [address] [place] Platelet mean volume (Bld) [Entitic vol] 9.5 fL Normal 9.0-12.7 [facility] Comment on above: Order Comment: Speci men Type: BLOOD SPECIMENOrdering Facility: [facility] Address: [address] [place] [address] Performed By: #### 5 7021-8 ####[facility]ITALNCLIA [id number] [place] [address] [place] Platelets (Bld) [#/Vol] 268 10*3/uL Normal 150-400 [facility] Comment on above: Order Comment: Speci men Type: BLOOD SPECIMENOrdering Facility: [facility] Address: [address] [place] [address] Performed By: #### 5 7021-8 ####[facility]ITALNCLIA [id number] [place] [address] [place] RBC (Bld) [#/Vol] 4.22 10*6/uL Normal 3.90-5.20 [facility] Comment on above: Order Comment: Speci men Type: BLOOD SPECIMENOrdering Facility: [facility] Address: [address] [place] [address] Performed By: #### 5 7021-8 ####[facility]ENTERWNCLIA [id number] [place] [address] [place] WBC (Bld) [#/Vol] 9.90 10*3/uL Normal 3.70-11.00 [facility] Comment on above: Order Comment: Speci men Type: BLOOD SPECIMENOrdering Facility: [facility] Address: [address] [place] [address] Performed By: #### 5 7021-8 ####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 [...] Date Reviewed: 08/17/2024 Reviewed by: Jeannie Taylor APRN.HOSPITAL CLEANER - Fully Assessed Reason for Visit: Establish Care [42] Primary Visit Diagnosis:Encounter for medical examination to establish care [Z00.00] Prescriptions as of 08/17/2024 (more content not included)... Normal [facility] Examination level ultrasound on 08-17-2024 Indication First trimester anatomic survey Impression The patient is referred for a first trimester anatomy scan including nuchal translucency measurement as clinically indicated. - Single, live, intrauterine . - Clemmons rump length measurement is consistent with the [...] view: normal 4-chamber view with color: normal 9-auuumq-zadvnnu view: normal Abdominal cord insertion: normal Stomach: [...] Read By: Roya Smith M.D. MATERNAL MEDICINE [facility] Radiology Study observation (narrative) [facility] Free T4 [Mass/Vol]on 025 Interpretation and review of laboratory results Normal [facility] HBV surface Ag Ser Qlon 03- HBV surface Ag Ql (S) Negative Normal Negative [facility] Comment on above: Order Comment: Speci men Type: BLOOD SPECIMENOrdering Facility: [facility] Address: [address] [place] [address] Performed By: #### 7 3752-8, 5-3, 43030-1 ####[facility] LABCLIA [id number] [place] [address] [place] HCV Ab Ser Qlon 08-17-2024 HCV Ab Ql (S) Negative Normal Negative [facility] Comment on above: Order Comment: Speci men Type: BLOOD SPECIMENOrdering Facility: [facility] Address: [address] [place] [address] Result Comment: The result suggests no evidence of infection with Hepatitis C virus. Should recent infection be suspected, repeat testing may be considered 4-6 weeks after this draw. Performed By: #### 1 6128-1 ####[facility] LABCLIA [id number] [place] [address] [place] HIV 1+2 Ab IA Qlon HIV 1 and 2 Ab IA.rapid Nom (S/P/Bld) Normal [facility] Comment on above: Order Comment: Speci men Type: BLOOD SPECIMENOrdering Facility: [facility] Address: [address] [place] [address] Result Comment: Test not indicated. Performed By: #### 7 3752-8, 5-3, 50440-6 ####[facility] LABCLIA [id number] [place] [address] [place] HIV 1+2 Ab+HIV1 p24 Ag IA Ql Non-Reactive Normal Nonreactive [facility] Comment on above: Order Comment: Speci men Type: BLOOD SPECIMENOrdering Facility: [facility] Address: [address] [place] [address] Performed By: #### 7 3752-8, 5195-3, 48914-0 ####[facility] LABCLIA [id number] [place] [address] [place] HIV immunoassay testing algorithm interpretation (S/P/Bld) [Interp] Normal [facility] Comment on above: Order Comment: Speci men Type: BLOOD SPECIMENOrdering Facility: [facility] Address: [address] [place] [address] Result Comment: No e vidence of HIV-1 or HIV-2 infection. Should recent infection be suspected, repeat testing may be considered 2-3 weeks after this draw. [place] Rev. Code 3701.243(E): This information has been [...] diagnoses. Performed By: #### 7 3752-8, 5195-3, 08157-5 ####[facility] LABCLIA [id number] [place] [address] [place] HbA1c (Bld)on 08-17-2024 Average glucose Estimated from glycated hemoglobin (Bld) [Mass/Vol] 80 mg/dL Normal [facility] Comment on above: Order Comment: Speci men Type: BLOOD SPECIMENOrdering Facility: [facility] Address: [address] [place] [address] Result Comment: eAG: (Estimated average glucose) is a calculated value from HgbA1c and is retail field representative of the average blood glucose level in the last 2-3 month period. Performed By: #### 5 5454-3 ####[facility] LABIA [id number] [place] [address] [place] HbA1c (Bld) [Mass fraction] 4.4 % Normal 4.3-5.6 [facility] Comment on above: Order Comment: Speci men Type: BLOOD SPECIMENOrdering Facility: [facility] Address: [address] [place], [place] [address] Result Comment: Amer [place] Diabetes Association guidelines indicate that patients with HgbA1c in the range 5.7-6.4% are at increased risk for development of diabetes, and intervention by lifestyle modification may be beneficial. HgbA1c greater or equal to 6.5% is considered diagnostic of diabetes. Performed By: #### 5 5454-3 ####[facility] LABCLIA [id number] [place] [address] [place] RUBELLA IGG ANTIBODYon 08-17 RUBELLA IGG AB, QUAL Positive Normal Positive [facility] Comment on above: Order Comment: Speci men Type: BLOOD SPECIMENOrdering Facility: [facility] Address: [address] [place] [address] Result Comment: The result suggests recent or past exposure to Rubella virus or history of Rubella vaccination. Positive result may also be seen due to presence of passively-transferred antibodies. Please correlate with patient's history. Performed By: #### R [id number] ####[facility] LABCLIA [id number] [place] [address] [place] Reagin and Treponema pallidu m IgG and IgM [Interp]on 08-17-2024 T. pallidum IgG+IgM IA Ql (S) Non-Reactive Normal Nonreactive [facility] Comment on above: Order Comment: Speci men Type: BLOOD SPECIMENOrdering Facility: [facility] Address: [address] [place] [address] Performed By: #### 7 3752-8, 5195-3, 53144-6 ####[facility] LABIA [id number] [place] [address] [place] Reagin+T pallidum IgG+IgM Se rPl-Impon 08-17-2024 Reagin and Treponema pallidum IgG and IgM [Interp] Cannot exclude recent Treponemal infection if specimen collected within 7-10 days after appearance of suspect lesions or 2-3 weeks after an exposure. Clinical correlation is required. Normal [facility] Comment on above: Order Comment: Speci men Type: BLOOD SPECIMENOrdering Facility: [facility] Address: [address] [place] [address] Performed By: #### 7 3752-8, 5195-3, 38598-2 ####[facility] LABCLIA [id number] [place] [address] [place] T4 FREE/FREE THYROXINEon Free T4 [Mass/Vol] 1.1 ng/dL 0.9 - 1.7 ng/dL [facility] T4 Free SerPl-mCncon 025 Free T4 [Mass/Vol] 1.1 ng/dL Normal 0.9-1.7 [facility] Comment on above: Order Comment: Mega figueroa Type: BLOOD SPECIMEN [facility] Address: [address] [place] [address] Performed By: #### T SPN #### [facility] CLIA [id number] [address] [place] [address] [place] TSH SerPl-aCncon 08-17-2024 TSH Qn 1.420 m[IU]/L Normal 0.270-4.200 [facility] Comment on above: Order Comment: Mega figueroa Type: BLOOD SPECIMEN [facility] Address: [address] [place] [address] Result Comment: If t he patient is , TSH reference range varies by gestational period: First Trimester (weeks 9-12): 0.180-2.990 mIU/L Second Trimester: 0.110-3.980 mIU/L Third Trimester: 0.480-4.710 mIU/L Dionisio Meyers et al. A Practical Approach for the Verifications and Determination of Site- and Trimester-Specific Reference Intervals for Thyroid Function tests in . Thyroid, 2019:29:3:412-420. Héctor Arechiga et al. 2017 Guidelines of the [place] Thyroid Association for the Diagnosis and Management of Thyroid Disease during and the . Thyroid, 2017:27:3:315-389. Performed By: #### T SPN #### [facility] CLIA [id number] [address] [place] [address] [place] TYPE + SCREEN PRENATALon ABO O Normal [facility] Comment on above: Order Comment: Speci men Type: BLOOD SPECIMEN [facility] Address: [address] [place] [address] Performed By: #### T SPN #### [facility] CLIA [id number] [address] [place] [address] [place] Rh Nom (Bld) Positive Normal [facility] Comment on above: Order Comment: Speci men Type: BLOOD SPECIMEN [facility] Address: [address] [place] [address] Performed By: #### T SPN #### [facility] CLIA [id number] [address] [place] [address] [place] TYPE AND SCREEN EXPIRATION 08/20/2024 23:59 Normal [facility] Comment on above: Order Comment: Speci men Type: BLOOD SPECIMEN [facility] Address: [address] [place] [address] Performed By: #### T SPN #### [facility] CLIA [id number] [address] [place] [address] [place] Bacteria Ur Culton Bacteria identified Cx Nom (U) ORGANISM ID: 1 10,000 -<50,000 CFU/ml Normal urogenital mateo Normal [facility] Comment on above: Performed By: #### T SPN #### [facility] CLIA [id number] [address] [place] [address] [place] C. trachomatis+N. gonorrhoea e DNA TRISH+probe Ql (Unsp spec)on 07-20-2024 C. trachomatis rRNA TRISH+probe Ql (Unsp spec) Not detected Normal Not detected [facility] Comment on above: Order Comment: Speci men Type: BLOOD SPECIMEN [facility] Address: [address] [place] [address] Performed By: #### T SPN #### [facility] CLIA [id number] [address] [place] [address] [place] N. gonorrhoeae rRNA TRISH+probe Ql (Unsp spec) Not detected Normal Not detected [facility] Comment on above: Order Comment: Speci men Type: BLOOD SPECIMEN [facility] Address: [address] [place] [address] Performed By: #### T SPN #### [facility] CLIA [id number] [address] [place] [address] [place] HIGH RISK HUMAN PAPILLOMA PALMIRA (HPV), PCR FOR DETECTION AND GENOTYPINGon 07-20-2024 HPV 16 Ag Ql (Unsp spec) Not detected Normal Not detected [facility] Comment on above: Order Comment: Speci men Type: FLUID SPECIMENOrdering Facility: [facility] Address: [address] [place] [address] Performed By: #### H PVHRT ####[facility] [id number] [place] [address] [place] HPV 18 Ag Ql (Unsp spec) Not detected Normal Not detected [facility] Comment on above: Order Comment: Speci men Type: FLUID SPECIMENOrdering Facility: [facility] Address: [address] [place] [address] Performed By: #### H PVHRT ####[facility] LABIA [id number] [place] [address] [place] HPV 31+33+35+39+45+51+52+ 56+58+59+66+68 DNA TRISH+probe Ql (Cvx) Not detected Normal Not detected [facility] Comment on above: Order Comment: Speci men Type: FLUID SPECIMENOrdering Facility: [facility] Address: [address] [place] [address] Result Comment: High Risk HPV Other Type includes HPV types 31, 33, 35, 39, 45, 51, 52, 56, 58, 59, 66 and 68. Performed By: #### H PVHRT ####[facility] LABCLIA [id number] [place] [address] [place] PAP TESTon 07-20-2024 ADEQUACY Normal [facility] Comment on above: Order Comment: Speci men Type: FLUID SPECIMEN [facility] Address: [address] [place] [address] Result Comment: Sati sfactory for interpretation. Transformation zone present Performed By: #### L [id number] #### [facility] LAB CLIA [id number] [address] [place] [address] [place] CASE REPORT Normal [facility] Comment on above: Order Comment: Speci men Type: FLUID SPECIMEN [facility] Address: [address] [place] [address] Result Comment: Gyne cologic Cytology Report Case: [id number] Authorizing Provider: Marielle Jiménez APRN.HOSPITAL CLEANER Collected: 07/20/2024 10:17 AM Ordering Location: OB/Gynecology Received: 07/20/2024 10:50 AM First Screen: Toshia Cordova, ALBA, ASCP Specimen: Pap Test, ThinPrep, Cervix Performed By: #### L [id number] #### [facility] CLIA [id number] [address] [place] [address] [place] CLINICAL HISTORY, CYTOLOGY, INSTALLATION TECHNICIAN Routine Exam Normal [facility] Comment on above: Order Comment: Speci men Type: FLUID SPECIMEN [facility] Address: [address] [place] [address] Performed By: #### L [id number] #### [facility] CLIA [id number] [address] [place] [address] [place] FINAL PERFORMING LAB Normal [facility] Comment on above: Order Comment: Speci men Type: FLUID SPECIMEN [facility] Address: [address] [place] [address] Result Comment: Tech nical component, interventional radiology technologist screening performed at [facility], [facility] [place] [address] CLIA# [id number] Diagnostic interpretation performed at [facility], [address] [place] [address] [place] [address] CLIA# [id number] Concession Cashier: Wilmer Lewis M.D. Performed By: #### L [id number] #### [facility] CLIA [id number] [address] [place], [place] [address] [place] INTERPRETATION, CYTOLOGY, INSTALLATION TECHNICIAN Normal [facility] Comment on above: Order Comment: Speci men Type: FLUID SPECIMEN [facility] Address: [address] [place] [address] Result Comment: Nega tive for intraepithelial lesion or malignancy. at 1352 EST Performed By: #### L [id number] #### [facility] CLIA [id number] [address] [place] [address] [place] LMP 05/20/2024 Normal [facility] Comment on above: Order Comment: Speci men Type: FLUID SPECIMEN [facility] Address: [address] [place] [address] Performed By: #### L [id number] #### [facility] CLIA [id number] [address] [place], [place] [address] [place] PAP DISCLAIMER COMMENT The Pap Smear is a screening test for cervical cancer. False negative results occur with all screening tests, emphasizing the need for rescreening at recommended intervals, and clinical correlation. Normal [facility] Comment on above: Order Comment: Speci men Type: FLUID SPECIMEN [facility] Address: [address] [place] [address] Performed By: #### L [id number] #### [facility] CLIA [id number] [address] PAP BODY LINE FINISHER COMMENT This specimen has be en analyzed by the ThinPrep Imaging System, an automated imaging and review system, which assists the laboratory in evaluating cells on ThinPrep Pap tests. Following automated imaging, selected de la paz from every slide are reviewed by a interventional radiology technologist. Normal [facility] Comment on above: Order Comment: Speci men Type: FLUID SPECIMEN [facility] Address: [address] [place] [address] Performed By: #### L [id number] #### [facility] CLIA [id number] [address] [place] [address] POC FUTURES TRADER ULTRASOUNDon 07-20-19 Indication Confirmation of intrauterine . [...] Read By: Marielle Jiménez CNP MATERNAL MEDICINE [facility] Radiology Study observation (narrative) [facility] TRICHOMONAS VAGINALIS NAATon 07-20-2024 T. vaginalis DNA TRISH+probe Ql (Unsp spec) Not detected Normal Not detected [facility] Comment on above: Order Comment: Speci men Type: BLOOD SPECIMEN [facility] Address: [address] [place] [address] Performed By: #### T SPN #### [facility] CLIA [id number] [address] [facility] [place] [place] [address] [place] Basic Metabolic Profile (BMP )on 07-17-2024 BUN/CRE 24.1 RATIO High 10-20 [facility] Comment on above: Performed By: #### L 501.2450, L700.8000, L500.2500, L100.0100, L500.3400 #### [facility] [address] [place], [address] CA,Total 9.6 mg/dL Normal 8.5-10.1 [facility] Comment on above: Performed By: #### L 501.2450, L700.8000, L500.2500, L100.0100, L500.3400 #### [facility] [address] [place], [address] Chloride [Moles/Vol] 102 mmol/L Normal 98-107 [facility] Comment on above: Performed By: #### L 501.2450, L700.8000, L500.2500, L100.0100, L500.3400 #### [facility] [address] [place], [address] CO2 [Moles/Vol] 25.0 mmol/L Normal 21.0-32.0 [facility] Comment on above: Performed By: #### L 501.2450, L700.8000, L500.2500, L100.0100, L500.3400 #### [facility] [address] [place], [address] Creatinine [Mass/Vol] 0.75 mg/dL Normal 0.55-1.02 [facility] Comment on above: Result Comment: The validity of the calculated GFR GFRAA in patients over 70 years has not been determined. Clinical correlation is essential. Performed By: #### L 501.2450, L700.8000, L500.2500, L100.0100, L500.3400 #### [facility] [address] [place], [address] ECRCL 89.08 ml/min Normal [facility] Comment on above: Performed By: #### L 501.2450, L700.8000, L500.2500, L100.0100, L500.3400 #### [facility] [address] [place], [address] EST GFR - AA 116 mL/min Normal >60 [facility] Comment on above: Result Comment: Afri can French GFR Calc Performed By: #### L 501.2450, L700.8000, L500.2500, L100.0100, L500.3400 #### [facility] [address] [place], [address] GAP 8 Normal 5-15 [facility] Comment on above: Performed By: #### L 501.2450, L700.8000, L500.2500, L100.0100, L500.3400 #### [facility] [address] [place], [address] GFR/1.73 sq M.predicted among non-blacks MDRD (S/P/Bld) [Vol rate/Area] 95 mL/min/{1.73_m2} Normal >60 [facility] Comment on above: Result Comment: Non- GFR Calc Performed By: #### L 501.2450, L700.8000, L500.2500, L100.0100, L500.3400 #### [facility] [address] [place], [address] Glucose [Mass/Vol] 81 mg/dL Normal 74-106 [facility] Comment on above: Performed By: #### L 501.2450, L700.8000, L500.2500, L100.0100, L500.3400 #### [facility] [address] [place], [address] Potassium [Moles/Vol] 3.4 mmol/L Low 3.5-5.1 [facility] Comment on above: Performed By: #### L 501.2450, L700.8000, L500.2500, L100.0100, L500.3400 #### [facility] [address] [place], [address] Sodium [Moles/Vol] 136 mmol/L Normal 136-145 [facility] Comment on above: Performed By: #### L 501.2450, L700.8000, L500.2500, L100.0100, L500.3400 #### [facility] [address] [place], [address] Urea nitrogen [Mass/Vol] 18 mg/dL Normal 7-18 [facility] Comment on above: Performed By: #### L 501.2450, L700.8000, L500.2500, L100.0100, L500.3400 #### [facility] [address] [place], [address] CBC W/Diff, Automatedon 02 Absolute Lymph 1.19 X10 3/uL Normal 0.83-4.51 [facility] Comment on above: Performed By: #### L 501.2450, L700.8000, L500.2500, L100.0100, L500.3400 #### [facility] [address] [place], [address] Absolute Neut 10.2 X10 3/uL High 2.0-7.7 [facility] Comment on above: Performed By: #### L 501.2450, L700.8000, L500.2500, L100.0100, L500.3400 #### [facility] [address] [place], [address] Basophils/100 WBC (Bld) 0.3 % Normal 0-1 [facility] Comment on above: Performed By: #### L 501.2450, L700.8000, L500.2500, L100.0100, L500.3400 #### [facility] [address] [place], [address] Eosinophils/100 WBC (Bld) 1.0 % Normal 0-5 [facility] Comment on above: Performed By: #### L 501.2450, L700.8000, L500.2500, L100.0100, L500.3400 #### [facility] [address] [place], [address] Erythrocyte distribution width (RBC) [Ratio] 12.4 % Normal 11.6-14.6 [facility] Comment on above: Performed By: #### L 501.2450, L700.8000, L500.2500, L100.0100, L500.3400 #### [facility] [address] [place], [address] Hematocrit (Bld) [Volume fraction] 43.1 % Normal 37-47 [facility] Comment on above: Performed By: #### L 501.2450, L700.8000, L500.2500, L100.0100, L500.3400 #### [facility] [address] [place], [address] Hemoglobin (Bld) [Mass/Vol] 14.8 g/dL Normal 12.0-15.0 [facility] Comment on above: Performed By: #### L 501.2450, L700.8000, L500.2500, L100.0100, L500.3400 #### [facility] [address] [place], [address] IG% 0.600 Normal 0.0-0.9 [facility] Comment on above: Result Comment: IG% - Immature Granulocytes (promyelocytes, myelocytes and metamyelocytes) > 1% indicates that a LEFT SHIFT is Present. Performed By: #### L 501.2450, L700.8000, L500.2500, L100.0100, L500.3400 #### [facility] [address] [place], [address] Lymphocytes/100 WBC (Bld) 9.6 % Low 19-41 [facility] Comment on above: Performed By: #### L 501.2450, L700.8000, L500.2500, L100.0100, L500.3400 #### [facility] [address] [place], [address] MCH (RBC) [Entitic mass] 30.1 pg Normal 27.0-32.0 [facility] Comment on above: Performed By: #### L 501.2450, L700.8000, L500.2500, L100.0100, L500.3400 #### [facility] [address] [place], [address] MCHC (RBC) [Mass/Vol] 34.3 g/dL Normal 32-36 [facility] Comment on above: Performed By: #### L 501.2450, L700.8000, L500.2500, L100.0100, L500.3400 #### [facility] [address] [place], [address] MCV (RBC) [Entitic vol] 87.6 fL Normal 81-99 [facility] Comment on above: Performed By: #### L 501.2450, L700.8000, L500.2500, L100.0100, L500.3400 #### [facility] [address] [place], [address] Monocytes/100 WBC (Bld) 6.3 % Normal 0-10 [facility] Comment on above: Performed By: #### L 501.2450, L700.8000, L500.2500, L100.0100, L500.3400 #### [facility] [address] [place], [address] Neutrophils/100 WBC (Bld) 82.2 % High 47-70 [facility] Comment on above: Performed By: #### L 501.2450, L700.8000, L500.2500, L100.0100, L500.3400 #### [facility] [address] [place], [address] Nucleated RBC (Bld) [#/Vol] 0 10*3/uL Normal 0-5 [facility] Comment on above: Performed By: #### L 501.2450, L700.8000, L500.2500, L100.0100, L500.3400 #### [facility] [address] [place], [address] Platelet mean volume (Bld) [Entitic vol] 9.9 fL Normal 6.2-12.0 [facility] Comment on above: Performed By: #### L 501.2450, L700.8000, L500.2500, L100.0100, L500.3400 #### [facility] [address] [place], [address] Platelets (Bld) [#/Vol] 211 10*3/uL Normal 150-450 [facility] Comment on above: Performed By: #### L 501.2450, L700.8000, L500.2500, L100.0100, L500.3400 #### [facility] [address] [place], [address] RBC (Bld) [#/Vol] 4.92 10*6/uL Normal 4.2-5.4 [facility] Comment on above: Performed By: #### L 501.2450, L700.8000, L500.2500, L100.0100, L500.3400 #### [facility] [address] [place], [address] RDW SD 40.0 fl Normal 35.1-43.9 [facility] Comment on above: Performed By: #### L 501.2450, L700.8000, L500.2500, L100.0100, L500.3400 #### [facility] [address] [place], [address] WBC (Bld) [#/Vol] 12.4 10*3/uL High 4.4-11.0 [facility] Comment on above: Performed By: #### L 501.2450, L700.8000, L500.2500, L100.0100, L500.3400 #### [facility] [address] [place], [address] Emergency Department Summary on 07-17-2024 Emergency Department Summary [facility] Medical Records Department [address] [place] [address] Emergency Department Summary 07/17/24 MR#: [id number] Acct: [id number] Name: RAMONA WAHL Rep #: [id number] : 1990 34 From: Maxim Francisco DO [...] vomit that she should come to emergency. [facility] Medical History Vaginal delivery PCOS (polycystic ovarian [...] RBC 4.92 (more content not included)... Normal [facility] Lipaseon 07-17-2024 Lipase [Catalytic activity/Vol] 25 U/L Low 73-393 [facility] Comment on above: Performed By: #### L 501.2450, L700.8000, L500.2500, L100.0100, L500.3400 #### [facility] [address] [place], [place], [address] Liver Profileon 07-17-2024 Albumin [Mass/Vol] 3.7 g/dL Normal 3.2-5.0 [facility] Comment on above: Performed By: #### L 501.2450, L700.8000, L500.2500, L100.0100, L500.3400 #### [facility] [address] [place], [place], [address] ALK P 63 U/L Normal 45-117 [facility] Comment on above: Performed By: #### L 501.2450, L700.8000, L500.2500, L100.0100, L500.3400 #### [facility] [address] [place], [address] ALT [Catalytic activity/Vol] 24 U/L Normal 13-56 [facility] Comment on above: Performed By: #### L 501.2450, L700.8000, L500.2500, L100.0100, L500.3400 #### [facility] [address] [place], [address] AST [Catalytic activity/Vol] 18 U/L Normal 15-37 [facility] Comment on above: Performed By: #### L 501.2450, L700.8000, L500.2500, L100.0100, L500.3400 #### [facility] [address] [place], [address] Bilirubin [Mass/Vol] 0.90 mg/dL Normal 0.20-1.00 [facility] Comment on above: Result Comment: For patients on eltrombopag therapy, use of Dimension [place] TBIL is not recommended. Performed By: #### L 501.2450, L700.8000, L500.2500, L100.0100, L500.3400 #### [facility] [address] [place], [address] Bilirubin.direct [Mass/Vol] 0.28 mg/dL Normal 0.00-0.30 [facility] Comment on above: Performed By: #### L 501.2450, L700.8000, L500.2500, L100.0100, L500.3400 #### [facility] [address] [place], [address] Globulin (S) [Mass/Vol] 4.1 g/dL Normal 2.2-4.2 [facility] Comment on above: Performed By: #### L 501.2450, L700.8000, L500.2500, L100.0100, L500.3400 #### [facility] [address] [place], [address] T PROT 7.8 g/dL Normal 6.4-8.2 [facility] Comment on above: Performed By: #### L 501.2450, L700.8000, L500.2500, L100.0100, L500.3400 #### [facility] [address] [place], [address] Urinalysis, Completeon 07-17 RBC 0 SEEN Normal 0-5 [facility] Comment on above: Order Comment: CLEAN CATCH Performed By: #### L 400.0001 #### [facility] [address] [place], [address] WBC 0-5 SEEN Normal 0-5 [facility] Comment on above: Order Comment: CLEAN CATCH Performed By: #### L 400.0001 #### [facility] [address] [place], [address] EPI,SQUAMOUS 0-5 SEEN Normal 5-10 [facility] Comment on above: Order Comment: CLEAN CATCH Performed By: #### L 400.0001 #### [facility] [address] [place], [address] Mucus Ql (Urine sed) 3+ /hpf Normal [facility] Comment on above: Order Comment: CLEAN CATCH Performed By: #### L 400.0001 #### [facility] [address] [place], [address] BACTERIA 0 SEEN Normal None Seen [facility] Comment on above: Order Comment: CLEAN CATCH Performed By: #### L 400.0001 #### [facility] [address] [place], [address] hCG Titer Quant., Serumon HCG QUANT. 186719 mIU/mL High 1-3 [facility] Comment on above: Result Comment: hCG levels with Gestational Age Gestational Age hCG mIU/mL (IU/L) 0.2 - 1 week 5 - 50 1-2 weeks 50 - 500 2-3 weeks 100 - 5000 3-4 weeks 500 - 52072 4-5 weeks 1000 - 07816 5-6 weeks 22774 - 100,000 6-8 weeks 42238 - 200,000 2-3 months 05261 - 100,000 Performed By: #### L 501.2450, L700.8000, L500.2500, L100.0100, L500.3400 #### [facility] [address] [place], [address] Comprehensive metabolic 2000 panelOrdered By: Bessy Bishop on 07-12-2024 Albumin [Mass/Vol] 4.7 g/dL 3.9 - 4.9 g/dL [facility] ALP [Catalytic activity/Vol] 57 U/L 34 - 123 U/L [facility] ALT [Catalytic activity/Vol] 17 U/L 7 - 38 U/L [facility] Anion gap [Moles/Vol] 11 mmol/L 8 - 15 mmol/L [facility] AST [Catalytic activity/Vol] 20 U/L 13 - 35 U/L [facility] Bilirubin [Mass/Vol] 0.7 mg/dL 0.2 - 1 .3 mg/dL [facility] Calcium [Mass/Vol] 10 mg/dL 8.5 - 10. 2 mg/dL [facility] Chloride [Moles/Vol] 101 mmol/L 98 - 10 7 mmol/L [facility] CO2 [Moles/Vol] 22 mmol/L 22 - 30 mmol/L [facility] Creatinine [Mass/Vol] 0.62 mg/dL 0.58 - 0.96 mg/dL [facility] GFR/1.73 sq M.predicted among non-blacks MDRD (S/P/Bld) [Vol rate/Area] 122 mL/min/{1.73_m2} - PINF [facility] Comment on above: Estimated Glomerular Filtration Rate [...] 114 mg/dL High 74 - 99 mg/dL [facility] Comment on above: The [place] Diabete s Association (ADA) provides guidance for [...] Standards of Medical Care in Diabetes 2016, [place] Diabetes Association. Diabetes Care. 2016.39(Suppl 1). Interpretation and review of laboratory results Abnormal [facility] Potassium [Moles/Vol] 4 mmol/L 3.7 - 5.1 mmol/L [facility] Protein [Mass/Vol] 7.5 g/dL 6.3 - 8.0 g/dL [facility] Sodium [Moles/Vol] 134 mmol/L Low 136 - 144 mmol/L [facility] Urea nitrogen [Mass/Vol] 20 mg/dL 7 - 21 mg/dL [facility] Comprehensive metabolic 2000 panelon 07-12-2024 Albumin [Mass/Vol] 4.7 g/dL Normal 3.9-4.9 [facility] Comment on above: Order Comment: Mega figueroa Type: BLOOD SPECIMEN Ordering Facility: [facility] Address: [address] [place] [address] Performed By: #### T SPN #### [facility] MAIN BLOOD BANK [facility] [id number] [address] [place] [address] [place] ALP [Catalytic activity/Vol] 57 U/L Normal 34-123 [facility] Comment on above: Order Comment: Mega figueroa Type: BLOOD SPECIMEN Ordering Facility: [facility] Address: [address] [place], [place] [id number] Performed By: #### T SPN #### CC MAIN BLOOD BANK CLIA [id number] [address] [place] [address] [place] ALT [Catalytic activity/Vol] 17 U/L Normal 7-38 [facility] Comment on above: Order Comment: Speci men Type: BLOOD SPECIMEN Ordering Facility: [facility] Address: [address] [place] [address] Performed By: #### T SPN #### [facility] MAIN BLOOD BANK CLIA [id number] [address] [place] [address] [place] Anion gap [Moles/Vol] 11 mmol/L Normal 8-15 [facility] Comment on above: Order Comment: Speci men Type: BLOOD SPECIMEN Ordering Facility: [facility] Address: [address] [place] [address] Performed By: #### T SPN #### [facility] MAIN BLOOD BANK CLIA [id number] [address] [place] [address] [place] AST [Catalytic activity/Vol] 20 U/L Normal 13-35 [facility] Comment on above: Order Comment: Speci men Type: BLOOD SPECIMEN Ordering Facility: [facility] Address: [address] [place] [address] Performed By: #### T SPN #### [facility] MAIN BLOOD BANK CLIA [id number] [address] [place] [address] [place] Bilirubin [Mass/Vol] 0.7 mg/dL Normal 0.2-1.3 [facility] Comment on above: Order Comment: Speci men Type: BLOOD SPECIMEN Ordering Facility: [facility] Address: [address] [place] [address] Performed By: #### T SPN #### [facility] MAIN BLOOD BANK CLIA [id number] [address] [place] [address] [place] Calcium [Mass/Vol] 10.0 mg/dL Normal 8.5-10.2 [facility] Comment on above: Order Comment: Speci men Type: BLOOD SPECIMEN Ordering Facility: [facility] Address: [address] [place] [address] Performed By: #### T SPN #### [facility] MAIN BLOOD BANK CLIA [id number] [address] [place] [address] [place] Chloride [Moles/Vol] 101 mmol/L Normal 98-107 [facility] Comment on above: Order Comment: Speci men Type: BLOOD SPECIMEN Ordering Facility: [facility] Address: [address] [place] [address] Performed By: #### T SPN #### [facility] MAIN BLOOD BANK CLIA [id number] [address] [place] [address] [place] CO2 [Moles/Vol] 22 mmol/L Normal 22-30 [facility] Comment on above: Order Comment: Speci men Type: BLOOD SPECIMEN Ordering Facility: [facility] Address: [address] [place] [address] Performed By: #### T SPN #### [facility] MAIN BLOOD BANK CLIA [id number] [address] [place] [address] [place] Creatinine [Mass/Vol] 0.62 mg/dL Normal 0.58-0.96 [facility] Comment on above: Order Comment: Speci men Type: BLOOD SPECIMEN Ordering Facility: [facility] Address: [address] [place] [address] Performed By: #### T SPN #### CC MAIN BLOOD BANK CLIA [id number] [address] [place] [address] [place] Creatinine and Glomerular filtration rate.predicted panel (S/P/Bld) 122 mL/min/1.73m??? Normal >=60 [facility] Comment on above: Order Comment: Speci men Type: BLOOD SPECIMEN Ordering Facility: [facility] Address: [address] [place] [address] Result Comment: Alba mated Glomerular Filtration Rate [...] SPN #### CC MAIN BLOOD BANK CLIA [id number] [address] [place] [address] [place] Glucose [Mass/Vol] 114 mg/dL High 74-99 [facility] Comment on above: Order Comment: Mega figueroa Type: BLOOD SPECIMEN Ordering Facility: [facility] Address: [address] [place] [address] Result Comment: The [place] Diabetes Association (ADA) provides guidance for cutoff [...] Standards of Medical Care in Diabetes 2016, [place] Diabetes Association. Diabetes Care. 2016.39(Suppl 1). Performed By: #### T SPN #### CC MAIN BLOOD BANK CLIA [id number] [address] [place] [address] [place] Potassium [Moles/Vol] 4.0 mmol/L Normal 3.7-5.1 [facility] Comment on above: Order Comment: Mega figueroa Type: BLOOD SPECIMEN Ordering Facility: [facility] Address: [address] [place] [address] Performed By: #### T SPN #### CC MAIN BLOOD BANK CLIA [id number] [address] [place] [address] [place] Protein [Mass/Vol] 7.5 g/dL Normal 6.3-8.0 [facility] Comment on above: Order Comment: Speci men Type: BLOOD SPECIMEN Ordering Facility: [facility] Address: [address] [place] [address] Performed By: #### T SPN #### CC MAIN BLOOD BANK CLIA [id number] [address] [place] [address] [place] Sodium [Moles/Vol] 134 mmol/L Low 136-144 [facility] Comment on above: Order Comment: Speci men Type: BLOOD SPECIMEN Ordering Facility: [facility] Address: [address] [place] [address] Performed By: #### T SPN #### CC MAIN BLOOD BANK CLIA [id number] [address] [place] [address] [place] Urea nitrogen [Mass/Vol] 20 mg/dL Normal 7-21 [facility] Comment on above: Order Comment: Speci men Type: BLOOD SPECIMEN Ordering Facility: [facility] Address: [address] [place] [address] Performed By: #### T SPN #### CC MAIN BLOOD BANK CLIA [id number] [address] [place] [address] [place] T4 Free SerPl-mCncon 025 Free T4 [Mass/Vol] 1.2 ng/dL Normal 0.9-1.7 [facility] Comment on above: Order Comment: Speci men Type: BLOOD SPECIMENOrdering Facility: [facility] Address: [address] [place] [address] Performed By: #### 3 024-7, 3016-3 ####[facility] LABCLIA [id number] [place] [address] [place] TSH SerPl-aCncon 07-12-2024 TSH Qn 1.520 m[IU]/L Normal 0.270-4.200 [facility] Comment on above: Order Comment: Speci men Type: BLOOD SPECIMENOrdering Facility: [facility] Address: [address] [place] [address] Result Comment: If t he patient is , TSH reference range varies by gestational period: First Trimester (weeks 9-12): 0.180-2.990 mIU/L Second Trimester: 0.110-3.980 mIU/L Third Trimester: 0.480-4.710 mIU/L Dionisio Meyers et al. A Practical Approach for the Verifications and Determination of Site- and Trimester-Specific Reference Intervals for Thyroid Function tests in . Thyroid, 2019:29:3:412-420. Héctor Arechiga, et al. 2017 Guidelines of the [place] Thyroid Association for the Diagnosis and Management of Thyroid Disease during and the . Thyroid, 2017:27:3:315-389. Performed By: #### 3 024-7, 3016-3 ####[facility] LABCLIA [id number] [facility] [id number] [place] [address] [place] URINE OB DIP B/Oon 3 Glucose Ql (U) Negative Neg mg/dL [facility] Protein.monoclonal (U) [Mass/Vol] Negative Neg mg/dL [facility] URINE OB DIP B/Oon 3 Glucose Ql (U) Negative Neg mg/dL [facility] Protein.monoclonal (U) [Mass/Vol] Negative Neg mg/dL [facility] URINE OB DIP B/Oon 3 Glucose Ql (U) Negative Neg mg/dL [facility] Protein.monoclonal (U) [Mass/Vol] Negative Neg mg/dL [facility] URINE OB DIP B/Oon 3 Glucose Ql (U) Negative Neg mg/dL [facility] Protein.monoclonal (U) [Mass/Vol] Negative Neg mg/dL [facility] URINE OB DIP B/Oon 3 Glucose Ql (U) Negative Neg mg/dL [facility] Protein.monoclonal (U) [Mass/Vol] Negative Neg mg/dL [facility] URINE OB DIP B/Oon 3 Glucose Ql (U) Negative Neg mg/dL [facility] Protein.monoclonal (U) [Mass/Vol] Negative Neg mg/dL [facility] URINE OB DIP B/Oon 3 Glucose Ql (U) Negative Neg mg/dL [facility] Protein.monoclonal (U) [Mass/Vol] trace Neg mg/dL [facility] URINE OB DIP B/Oon 3 Glucose Ql (U) Negative Neg mg/dL [facility] Protein.monoclonal (U) [Mass/Vol] Negative Neg mg/dL [facility] URINE OB DIP B/Oon 3 Glucose Ql (U) Negative Neg mg/dL [facility] Protein.monoclonal (U) [Mass/Vol] Negative Neg mg/dL [facility] Absolute lymphocyte countOrd ered By: Dr. Ferris on 08-28-2022 Lymphocytes Auto (Unsp spec) [#/Vol] 0.91 10*3/uL 0.83-4.51 [facility] Basophil percentageOrdered B y: Dr. Ferris on 08-28-2022 Basophil percentage 5-10 SEEN /hpf 0-5 [facility] Basophils/100 WBC (Bld) 0.6 % 0-1 [facility] Bilirubin [Mass/Vol] 0.40 mg/dL 0.20-1.00 [facility] Comment on above: For patients on eltr ombopag therapy, use of Dimension [place] TBIL is not recommended. Chloride [Moles/Vol] 107 mmol/L 98-107 [facility] Eosinophils/100 WBC (Bld) 0.4 % 0-5 [facility] Glucose [Mass/Vol] 79 mg/dL 74-106 [facility] Neutrophils (Bld) [#/Vol] 5.0 10*3/uL 2.0-7.7 [facility] Neutrophils/100 WBC (Bld) 74.4 % 47-70 [facility] Potassium [Moles/Vol] 3.5 mmol/L 3.5-5.1 [facility] Protein [Mass/Vol] 6.2 g/dL 6.4-8.2 [facility] Sodium [Moles/Vol] 138 mmol/L 136-145 [facility] WBC (Bld) [#/Vol] 6.8 10*3/uL 4.4-11.0 [facility] Bilirubin Test strip Ql (U)O rdered By: Dr. Ferris on 08-28-2022 Bilirubin Ql (U) 1 mg/dL Negative [facility] Comment on above: COLOR OF URINE MAY A FFECT DIPSTICK RESULTS. Blood erythrocytes count (nu mber/volume)Ordered By: Dr. Ferris on 08-28-2022 RBC (Bld) [#/Vol] 4.41 10*6/uL 4.2-5.4 [facility] Blood hemoglobin measurement (mass/volume)Ordered By: Dr. Ferris on 08-28-2022 Hemoglobin (Bld) [Mass/Vol] 14.2 g/dL 12.0-15.0 [facility] Blood lymphocytes/100 leukoc ytesOrdered By: Dr. Ferris on 08-28-2022 Lymphocytes/100 WBC (Bld) 13.5 % 19-41 [facility] Blood monocytes/100 leukocyt esOrdered By: Dr. Ferris on 08-28-2022 Monocytes/100 WBC (Bld) 9.8 % 0-10 [facility] Blood platelet mean volumeOr dered By: Dr. Ferris on 08-28-2022 Platelet mean volume (Bld) [Entitic vol] 9.5 fL 6.2-12.0 [facility] Determination of erythrocyte mean corpuscular volume (MCV)Ordered By: Dr. Ferris on 08-28-2022 MCV (RBC) [Entitic vol] 94.6 fL 81-99 [facility] Hematocrit Auto (Bld) [Volum e fraction]Ordered By: Dr. Ferris on 08-28-2022 Hematocrit (Bld) [Volume fraction] 41.7 % 37-47 [facility] Ketones Test strip Ql (U)Ord ered By: Dr. Ferris on 08-28-2022 Ketones Ql (U) 150 mg/dl Negative [facility] Comment on above: CRITICAL VALUE *HCRI TICAL VALUE VERIFIED. CALLED TO MARIAMA MOONEY08/28/221947 [employer].RESULTS READ BACK BY SAME . Laboratory - Chemistry and C hemistry - challengeOrdered By: Dr. Ferris on 08-28-2022 ALP [Catalytic activity/Vol] 65 U/L 45-117 [facility] ALT [Catalytic activity/Vol] 16 U/L 13-56 [facility] CO2 [Moles/Vol] 21.0 mmol/L 21.0-32.0 [facility] Globulin (S) [Mass/Vol] 3.6 g/dL 2.2-4.2 [facility] Lipase [Catalytic activity/Vol] 91 U/L 73-393 [facility] Urea nitrogen/Creatinine [Mass ratio] 26.0 mg/mg 10-20 [facility] Laboratory - Hematology and Cell countsOrdered By: Dr. Ferris on 08-28-2022 Erythrocyte distribution width (RBC) [Entitic vol] 48.2 fL 35.1-43.9 [facility] Erythrocyte distribution width (RBC) [Ratio] 13.8 % 11.6-14.6 [facility] Immature granulocytes/100 WBC (Bld) 1.300 % 0.0-0.9 [facility] Comment on above: IG% - Immature Granu locytes (promyelocytes, myelocytes and metamyelocytes) > 1% indicates that a LEFT SHIFT is Present. MCH (RBC) [Entitic mass] 32.2 pg 27.0-32.0 [facility] Nucleated RBC/100 WBC (Bld) [Ratio] 0 % 0-5 [facility] MCHC Auto (RBC) [Mass/Vol]Or dered By: Dr. Ferris on 08-28-2022 MCHC (RBC) [Mass/Vol] 34.1 g/dL 32-36 [facility] Mucus LM Ql (Urine sed)Order ed By: Dr. Ferris on 08-28-2022 Mucus Ql (Urine sed) 0 SEEN /hpf [facility] Nitrite Test strip Ql (U)Ord ered By: Dr. Ferris on 08-28-2022 Nitrite Ql (U) Negative Negative [facility] No Panel InformationOrdered By: Dr. Ferris on 08-28-2022 Estimated Creatinine Clearance Calc 109.75 ml/min [facility] Estimated GFR (MDRD) Amer 147 mL/min >60 [facility] Comment on above: GFR Calc Estimated GFR (MDRD) Non-Af Amer 121 mL/min >60 [facility] Comment on above: Non- GFR Calc Platelets bldOrdered By: Dr. Ferris on 08-28-2022 Platelets (Bld) [#/Vol] 234 10*3/uL 150-450 [facility] Protein Test strip Ql (U)Ord ered By: Dr. Ferris on 08-28-2022 Protein Ql (U) 30 mg/dl Negative [facility] Serum or plasma albumin luisito urement (mass/volume)Ordered By: Dr. Ferris on 08-28-2022 Albumin [Mass/Vol] 2.6 g/dL 3.2-5.0 [facility] Serum or plasma albumin/glob ulin mass ratioOrdered By: Dr. Ferris on 08-28-2022 Albumin/Globulin [Mass ratio] 0.7 {ratio} 0.9-2.4 [facility] Serum or plasma calcium luisito urement (mass/volume)Ordered By: Dr. Ferris on 08-28-2022 Calcium [Mass/Vol] 8.5 mg/dL 8.5-10.1 [facility] Serum or plasma creatinine m easurement (mass/volume)Ordered By: Dr. Ferris on 08-28-2022 Creatinine [Mass/Vol] 0.62 mg/dL 0.55-1.02 [facility] Comment on above: The validity of the calculated GFR & GFRAA in patients over 70 years has not been determined. Clinical correlation is essential. Serum or plasma urea nitroge n measurement (mass/volume)Ordered By: Dr. Ferris on 08-28-2022 Urea nitrogen [Mass/Vol] 16 mg/dL 7-18 [facility] Squamous epithelial cells de tection in urine sediment by light microscopyOrdered By: Dr. Ferris on 08-28-2022 Epithelial cells.squamous LM Ql (Urine sed) 5-10 SEEN /hpf 5-10 [facility] Thin prep Papanicolaou smear with manual screeningOrdered By: Dr. Ferris on 08-28-2022 Thin prep Papanicolaou smear with manual screening 16 U/L 15-37 [facility] Thin prep Papanicolaou smear with manual screening 10 5-15 [facility] Urine blood detectionOrdered By: Dr. Ferris on 08-28-2022 RBC Ql (U) 10 /ul Negative [facility] RBC Ql (U) 0-5 SEEN /hpf 0-5 [facility] Urine clarityOrdered By: Dr. Ferris on 08-28-2022 Clarity (U) Clear Clear [facility] Urine color determinationOrd ered By: Dr. Ferris on 08-28-2022 Color (U) Yellow Yellow [facility] Urine glucose detectionOrder ed By: Dr. Ferris on 08-28-2022 Glucose Ql (U) Normal mg/dl Normal [facility] Urine leukocyte esterase det ection by dipstickOrdered By: Dr. Ferris on 08-28-2022 Leukocyte esterase Test strip Ql (U) 25 /ul Negative [facility] Urine pHOrdered By: Dr. Ferris on 08-28-2022 pH (U) 6.0 [pH] 5.0 - 8.0 [facility] Urine sediment bacteria coun t by microscopy (number/high power field)Ordered By: Dr. Ferris on 08-28-2022 Bacteria LM.HPF (Urine sed) [#/Area] 1 /[HPF] None Seen [facility] Urine specific gravity measu rementOrdered By: Dr. Ferris on 08-28-2022 Specific gravity (U) [Rel density] 1.025 1.002-1.030 [facility] Urobilinogen Auto test strip Ql (U)Ordered By: Dr. Ferris on 08-28-2022 Urobilinogen Ql (U) 1 mg/dl Normal [facility] URINE OB DIP B/Oon 3 Glucose Ql (U) Negative Neg mg/dL [facility] Protein.monoclonal (U) [Mass/Vol] Negative Neg mg/dL [facility] C. trachomatis+N. gonorrhoea e DNA TRISH+probe Ql (Unsp spec)on 05-11-2022 C. trachomatis DNA TRISH+probe Ql (Unsp spec) Negative Negative for Chlamydia trachomatis by amplificaton [facility] N. gonorrhoeae DNA TRISH+probe Ql (Unsp spec) Negative Negative for Neisseria gonorrhoeae by amplification [facility] URINE CULTUREon 05-11-2022 Bacteria identified Cx Nom (U) <10,000 CFU/ml Normal urogenital mateo [facility] Post Op (General Surgery)on 11-30-2021 Post Op [...] 3 weeks ago. Patient recently moved to [facility]. surgical pathology revealed a gallbladder with [...] Donahue PA-C General and Trauma surgery Office: [phone] Active Problems Abdominal pain (789.00) (R10.9) Abdominal [...] tablet by mouth once daily Results/Data Surgical [id number] 11:11AAlfredo Rubalcava Test NameResultFlagReference Case Surgical Pathology(Report) Name RAMONA WAHLTresa Pathologist: TONI VILLELA M.D., PhD. Date of Procedure: 11/06/2021 Date Received: 11/06/2021 Date Reported 11/15/2021 Submitting Physician: ALFREDO BOWDEN MD Location: [facility] Surg Copy To/Referring/Attending: FRIDA LIEBERMAN D.O. Other External # FINAL DIAGNOSIS A. GALLBLADDER: --GALLBLADDER, NO SIGNIFICANT PATHOLOGIC FINDINGS Electronically Signed Out By TONI VILLELA M.D., PhD./WLI By the signature on this report, the individual or group listed as making the Final Interpretation/Diagnosis certifies that they have reviewed this case. Diagnostic interpretation performed at [facility] [address] [facility] [address] Clinical History: Physician Contact Number: [facility] Fixative (A): Formalin Clinical Diagnosis History [...] ( test) Ql (U) Negative Normal Negative [facility] Comment on above: Result Comment: POCT Performed By: #### H CGU #### [facility] [address] [place] [address] No Panel Informationon 11-06 [facility] Work Phone: [facility] Surgical Pathology Depar tmenton 11-06-2021 [facility] Surgical Pathology Department Name RAMONA WAHL Pathologist: TONI VILLELA M.D., PhD. Date of Procedure: 11/06/2021 Date Received: 11/06/2021 Date Reported 11/15/2021 Submitting Physician: ALFREDO BOWDEN MD Location: [facility] Copy To/Referring/Attending: FRIDA LIEBERMAN D.O. Other External # FINAL DIAGNOSIS A. GALLBLADDER: --GALLBLADDER, NO SIGNIFICANT PATHOLOGIC FINDINGS Electronically Signed Out By TONI VILLELA M.D., PhD./WLI By the signature on this report, the individual or group listed as making the Final Interpretation/Diagnosis certifies that they have reviewed this case. Diagnostic interpretation performed at [facility] [address] [facility] [address] Clinical History: Physician Contact Number: HALO Fixative [...] grossly identified adjacent to the cystic duct. Account Receivable Associate sections consisting of the cystic duct margin, and gallbladder wall, are submitted in one cassette. TAYLOR mjqing/11/09/[address] [facility] Department of Pathology [address] [place] [address] Normal [facility] Comment on above: Performed By: #### M G #### [facility] [address] [place] [address] Urine Teston 11-06 HCG ( test) Ql (U) Negative Negative -[facility] auga Work Phone: Comment on above: POCT CORONAVIRUS 2019, SCREEN ASY MPTOMATICon 11-03-2021 SARS-CoV-2 (COVID-19) RNA TRISH+probe Ql (Unsp spec) Not detected Normal Not Detected [facility] Comment on above: Result Comment: [...] patient management decisions. Fact sheet for providers: https://www.fda.gov/media/476576/download Fact sheet for patients: https://www.fda.gov/media/423427/download This test has received FDA Emergency Use Authorization (EUA) and has been verified by [facility] ([facility]). This test is only authorized for the duration of time that circumstances exist to justify the authorization of the emergency use of in vitro diagnostic tests for the detection of SARS-CoV-2 virus and/or diagnosis of COVID-19 infection under section 564(b)(1) of the Act, 21 U.S.C. 360bbb-3(b)(1), unless the authorization is terminated or revoked sooner. [facility] is certified under CLIA-88 as qualified to perform high complexity testing. Testing is performed in the [facility] laboratories located at [address] [place] [address]. Performed By: #### M G #### [address] [address] Lab Specimen Source Nasal, Nasopharyngeal Normal [facility] Comment on above: Performed By: #### M G #### [address] [address] Coronavirus 2019 RNA by PCR, Screening Asymptomticon 11-03-2021 Coronavirus 2019 RNA by PCR, Screening Asymptomtic Not detected Normal See Below -[facility]Vern fatima Work Phone: Comment on [...] make patient management decisions.Fact sheet for providers: https://www.fda.gov/media/007565/downloadFact sheet for patients: https://www.fda.gov/media/294306/downloadThis test has received FDA Emergency Use Authorization (EUA) and has been verified by [facility] ([facility]). This test is only authorized for the duration of time that circumstances exist to justify the authorization of the emergency use of in vitro diagnostic tests for the detection of SARS-CoV-2 virus and/or diagnosis of COVID-19 infection under section 564(b)(1) of the Act, 21 U.S.C. 360bbb-3(b)(1), unless the authorization is terminated or revoked sooner. [facility] is certified under CLIA-88 as qualified to perform high complexity testing. Testing is performed in the [facility] laboratories located at [address] [place] [address]. Covid 19 Resultson 2 SARS-CoV-2 (COVID-19) RNA [...] or Naproxen (Aleve) can also be used. Krhx-yxo-jeqgrgw cough and cold medicines can be used according to the instructions on the package. Some mzjq-ukt-cidaveu medicines also contain acetaminophen. Make sure you [...] water are not available, use alcohol-based hand boiler inspector. Avoid touching your eyes, nose, and mouth [...] 24 pennie (more content not included)... Normal [facility] CBC AND DIFFERENTIALon 10-26 Basophils (Bld) [#/Vol] 0.10 10*3/uL Normal 0.00 - 0.10 [facility] Comment on above: Performed By: #### C BCDF #### [address] [address] Basophils/100 WBC (Bld) 0.9 % Normal 0.0 - 2.0 [facility] Comment on above: Performed By: #### C BCDF #### [address] [address] Eosinophils (Bld) [#/Vol] 0.40 10*3/uL Normal 0.00 - 0.70 [facility] Comment on above: Performed By: #### C BCDF #### [address] [address] Eosinophils/100 WBC (Bld) 6.1 % Normal 0.0 - 6.0 [facility] Comment on above: Performed By: #### C BCDF #### [address] [address] Erythrocyte distribution width (RBC) [Ratio] 12.6 % Normal 11.5 - 14.5 [facility] Comment on above: Performed By: #### C BCDF #### [address] [address] Hematocrit (Bld) [Volume fraction] 41.7 % Normal 36.0 - 46.0 [facility] Comment on above: Performed By: #### C BCDF #### [address] [address] Hemoglobin (Bld) [Mass/Vol] 14.2 g/dL Normal 12.0 - 16.0 [facility] Comment on above: Performed By: #### C BCDF #### [address] [address] Lymphocytes (Bld) [#/Vol] 2.00 10*3/uL Normal 1.20 - 4.80 [facility] Comment on above: Performed By: #### C BCDF #### [address] [address] Lymphocytes/100 WBC (Bld) 27.7 % Normal 13.0 - 44.0 [facility] Comment on above: Performed By: #### C BCDF #### [address] [address] MCHC (RBC) [Mass/Vol] 34.1 g/dL Normal 32.0 - 36.0 [facility] Comment on above: Performed By: #### C BCDF #### [address] [address] MCV (RBC) [Entitic vol] 89 fL Normal 80 - 100 [facility] Comment on above: Performed By: #### C BCDF #### [address] [address] Monocytes (Bld) [#/Vol] 0.70 10*3/uL Normal 0.10 - 1.00 [facility] Comment on above: Performed By: #### C BCDF #### [address] [address] Monocytes/100 WBC (Bld) 9.5 % Normal 2.0 - 10.0 [facility] Comment on above: Performed By: #### C BCDF #### [address] [address] Neutrophils (Bld) [#/Vol] 4.10 10*3/uL Normal 1.20 - 7.70 [facility] Comment on above: Result Comment: Perc ent differential counts (%) should be interpreted in the context of the absolute cell counts (cells/L). Performed By: #### C BCDF #### [address] [address] Neutrophils/100 WBC (Bld) 55.8 % Normal 40.0 - 80.0 [facility] Comment on above: Performed By: #### C BCDF #### [address] [address] Platelets (Bld) [#/Vol] 233 10*3/uL Normal 150 - 450 [facility] Comment on above: Performed By: #### C BCDF #### [address] [address] RBC 4.71 x10E12/L Normal 4.00 - 5.20 [facility] Comment on above: Performed By: #### C BCDF #### [address] [address] WBC (Bld) [#/Vol] 7.4 10*3/uL Normal 4.4 - 11.3 [facility] Comment on above: Performed By: #### C BCDF #### [address] [address] Complete Blood Count + Diffe rentialon 10-26-2021 Basophils/100 WBC (Bld) 0.9 % 0.0 - 2.0 [facility] Work Phone: Erythrocyte distribution width (RBC) [Ratio] 12.6 % See Below [facility] Work Phone: Comment on above: Reference Range: 11. 5 - 14.5 Hematocrit (Bld) [Volume fraction] 41.7 % See Below [facility] Work Phone: Comment on above: Reference Range: 36. 0 - 46.0 Hemoglobin (Bld) [Mass/Vol] 14.2 g/dL See Below [facility] Work Phone: Comment on above: Reference Range: 12. 0 - 16.0 Lymphocytes/100 WBC (Bld) 27.7 % See Below [facility] Work Phone: Comment on above: Reference Range: 13. 0 - 44.0 MCHC (RBC) [Mass/Vol] 34.1 g/dL See Below [facility] Work Phone: [phone] Comment on above: Reference Range: 32. 0 - 36.0 MCV (RBC) [Entitic vol] 89 fL 80 - 100 [facility] Work Phone: [phone] Monocytes/100 WBC (Bld) 9.5 % 2.0 - 10.0 [facility] Work Phone: [phone] Neutrophils/100 WBC (Bld) 55.8 % See Below [facility] Work Phone: [phone] Comment on above: Reference Range: 40. 0 - 80.0 Platelets (Bld) [#/Vol] 233 10*3/uL 150 - 450 [facility] Work Phone: [phone] RBC (Bld) [#/Vol] 4.71 {x10E12/L} See Below [facility] Work Phone: [phone] Comment on above: Reference Range: 4.0 0 - 5.20 WBC (Bld) [#/Vol] 7.4 10*3/uL 4.4 - 11.3 [facility] Work Phone: [phone] Complete Blood Count + Differential 0.10 {x10E9/L} See Below [facility] Work Phone: [phone] Comment on above: Reference Range: 0.0 0 - 0.10 Complete Blood Count + Differential 0.40 {x10E9/L} See Below [facility] Work Phone: [phone] Comment on above: Reference Range: 0.0 0 - 0.70 Complete Blood Count + Differential 0.70 {x10E9/L} See Below [facility] Work Phone: [phone] Comment on above: Reference Range: 0.1 0 - 1.00 Complete Blood Count + Differential 2.00 {x10E9/L} See Below [facility] Work Phone: Comment on above: Reference Range: 1.2 0 - 4.80 Complete Blood Count + Differential 4.10 {x10E9/L} See Below [facility] elsy Work Phone: Comment on above: Reference Range: 1.2 0 - 7.70 Percent differential counts (%) should be interpreted in the context of the absolute cell counts (cells/L). Complete Blood Count + Differential 6.1 % 0.0 - 6.0 [facility] Work Phone: HEPATIC FUNCTION PANELon Albumin [Mass/Vol] 4.4 g/dL Normal 3.4 - 5.0 [facility] Comment on above: Performed By: #### H EPFP #### [address] [address] Performed By: #### M G #### [address] [address] ALP [Catalytic activity/Vol] 57 U/L Normal 33 - 110 [facility] Comment on above: Performed By: #### H EPFP #### [address] [address] ALT [Catalytic activity/Vol] 22 U/L Normal 7 - 45 [facility] Comment on above: Result Comment: Feli ents treated with Sulfasalazine may generate falsely decreased results for ALT. Performed By: #### H EPFP #### [address] [address] AST [Catalytic activity/Vol] 18 U/L Normal 9 - 39 [facility] Comment on above: Performed By: #### H EPFP #### [address] [address] Bilirubin [Mass/Vol] 0.4 mg/dL Normal 0.0 - 1.2 [facility] Comment on above: Performed By: #### H EPFP #### [address] [address] Bilirubin.indirect [Mass/Vol] 0.1 mg/dL Normal 0.0 - 0.3 [facility] Comment on above: Performed By: #### H EPFP #### [address] [place] [address] Protein [Mass/Vol] 6.8 g/dL Normal 6.4 - 8.2 [facility] Comment on above: Performed By: #### H EPFP #### [address] [place] [address] Hepatic Function Panelon Albumin BCP dye [Mass/Vol] 4.4 g/dL 3.4 - 5.0 [facility] [employer] Work Phone: [phone] ALP [Catalytic activity/Vol] 57 U/L 33 - 110 -[facility] Work Phone: [phone] ALT With P-5'-P [Catalytic activity/Vol] 22 U/L 7 - 45 [facility] Work Phone: [phone] Comment on above: Patients treated wit h Sulfasalazine may generate falsely decreased results for ALT. AST With P-5'-P [Catalytic activity/Vol] 18 U/L 9 - 39 -[facility] [employer] Work Phone: [phone] Bilirubin [Mass/Vol] 0.4 mg/dL 0.0 - 1.2 [facility] Work Phone: [phone] Bilirubin.direct [Mass/Vol] 0.1 mg/dL 0.0 - 0.3 -[facility] Work Phone: [phone] Protein [Mass/Vol] 6.8 g/dL 6.4 - 8.2 [facility] Work Phone: Laboratory - Coagulationon 0 10-26-2021 INR Coag (PPP) [Relative time] 1.1 {INR} 0.9 - 1.1 [facility] Work Phone: [phone] PT Coag (PPP) [Time] 12.5 s 9.8 - 13.4 [facility] Work Phone: [phone] MAGNESIUMon 10-26-2021 Magnesium [Mass/Vol] 2.03 mg/dL Normal 1.60 - 2.40 [facility] Comment on above: Performed By: #### M G #### [address] [address] Magnesium, Serumon Magnesium [Mass/Vol] 2.03 mg/dL See Below [facility] Work Phone: Comment on above: Reference Range: 1.6 0 - 2.40 PT/INRon 10-26-2021 PT Coag (PPP) [Time] 12.5 s Normal 9.8 - 13.4 [facility] Comment on above: Performed By: #### P TINR #### [address] [address] PT, INR 1.1 Normal 0.9 - 1.1 [facility] Comment on above: Performed By: #### P TINR #### [address] [address] RENAL FUNCTION PANELon 10-26 Anion gap [Moles/Vol] 10 mmol/L Normal 10 - 20 [facility] Comment on above: Performed By: #### M G #### [address] [address] Calcium [Mass/Vol] 9.0 mg/dL Normal 8.6 - 10.3 [facility] Comment on above: Performed By: #### M G #### [address] [address] Chloride [Moles/Vol] 107 mmol/L Normal 98 - 107 [facility] Comment on above: Performed By: #### M G #### [address] [address] Creatinine [Mass/Vol] 0.99 mg/dL Normal 0.50 - 1.05 [facility] Comment on above: Performed By: #### M G #### [address] [address] GFR/1.73 sq M.predicted among non-blacks MDRD (S/P/Bld) [Vol rate/Area] 79 mL/min/{1.73_m2} Normal >90 [facility] Comment on above: Result Comment: CALC ULATIONS OF ESTIMATED GFR ARE PERFORMED USING THE 2020 CKD-EPI STUDY REFIT EQUATION WITHOUT THE RACE VARIABLE FOR THE IDMS-TRACEABLE CREATININE METHODS. https://jasn.asnjournals.org/content//ASN.434628 4210 Performed By: #### M G #### [address] [address] Glucose [Mass/Vol] 86 mg/dL Normal 74 - 99 [facility] Comment on above: Performed By: #### M G #### [address] [address] HCO3 (Bld) [Moles/Vol] 24 mmol/L Normal 21 - 32 [facility] Comment on above: Performed By: #### M G #### [address] [address] Phosphate [Mass/Vol] 3.2 mg/dL Normal 2.5 - 4.9 [facility] Comment on above: Result Comment: The performance characteristics of phosphorus testing in heparinized plasma have been validated by the individual laboratory site where testing is performed. Testing on heparinized plasma is not approved by the FDA; however, such approval is not necessary. Performed By: #### M G #### [address] [address] Potassium [Moles/Vol] 3.7 mmol/L Normal 3.5 - 5.3 [facility] Comment on above: Performed By: #### M G #### [address] [address] Sodium [Moles/Vol] 137 mmol/L Normal 136 - 145 [facility] Comment on above: Performed By: #### M G #### [address] [address] Urea nitrogen [Mass/Vol] 17 mg/dL Normal 6 - 23 [facility] Comment on above: Performed By: #### M G #### [address] [address] Renal Function Panelon 10-26 Anion gap [Moles/Vol] 10 mmol/L 10 - 20 - [facility] [facility] Work Phone: [phone] Calcium [Mass/Vol] 9.0 mg/dL 8.6 - 10.3 MP-Uni v [facility] Work Phone: [phone] Chloride [Moles/Vol] 107 mmol/L 98 - 107 MP-U niv [facility] Work Phone: [phone] CO2 [Moles/Vol] 24 mmol/L 21 - 32 -[facility] Work Phone: [phone] Creatinine [Mass/Vol] 0.99 mg/dL See Below - [facility]a Work Phone: [phone] Comment on above: Reference Range: 0.5 0 - 1.05 Glucose [Mass/Vol] 86 mg/dL 74 - 99 -Uni v [facility] Work Phone: [phone] Phosphate [Mass/Vol] 3.2 mg/dL 2.5 - 4.9 MP-U [facility] auga Work Phone: [phone] Comment on above: The performance lupe acteristics of phosphorus testing in heparinized plasma have been validated by the individual laboratory site where testing is performed. Testing on heparinized plasma is not approved by the FDA; however, such approval is not necessary. Potassium [Moles/Vol] 3.7 mmol/L 3.5 - 5.3 - [facility] auga Work Phone: [phone] Sodium [Moles/Vol] 137 mmol/L 136 - 145 -[facility]i [facility] Work Phone: [phone] Urea nitrogen [Mass/Vol] 17 mg/dL 6 - 23 -[facility] Work Phone: [phone] Renal Function Panel 79 {mL/min/1.73m2} >90 -[facility] Work Phone: [phone] Comment on above: CALCULATIONS OF ALBA MATED GFR ARE PERFORMED USING THE 2020 CKD-EPI STUDY REFIT EQUATION WITHOUT THE RACE VARIABLE FOR THE IDMS-TRACEABLE CREATININE METHODS.https://jasn.asnjournals.org/content/early/ N.1715503182 Initial Visit (General Surge ry)on 08-03-2021 Initial [...] Carlos Manuel Bowden MD General Surgery Office: [phone] Chief Complaint Evaluation of ruq pain, gallbladder. History of Present Enbnpxn23S who presents today for evaluation of right [...] pain, RUQ (more content not included)... Normal [facility] CORONAVIRUSon 06-08-2021 SARS-CoV-2 (COVID-19) RNA TRISH+probe [...] on the FDA website: https://www.fda.gov/Medi calDevices/Safety/ EmergencySituations/ucm1 96071.htm This test was developed and its performance characteristics determined by [facility] Pathology and Laboratory Medicine [place]. This test has been authorized by FDA [...] COVID-19 Negative for COVID-19 (SARS-CoV-2 RNA) Normal [facility] Comment on above: Order Comment: COVID Testing: DIAGNOSTIC/ASYMPTOMATIC AGE at Spec BONITA 30 Report age at specimen BONITA? Y First test: NO Employed in Healthcare: NO Symptomatic as defined by CDC: NO Hospitalized for COVID-19? NO ICU: NO Resident in a Congregated Care Setting: NO Order Date: 06/07/21 : Not Performed By: #### M [phone] #### Test performed at: [address] [address] Office Visit (Family Anatoliy arechiga)on 03-07-2021 Follow-up [...] eye Vitals Vital Signs Recorded: 07Mar2021 03:24PM Dzsxtiqhnud04.1 F Heart Rate70 Nzxautlphje56 Bkkrtlee464 Ehaotqrct95 Height5 ft 3 in Ylakvg005 lb 3.2 oz BMI Ddsmbnvwhs31.47 kg/m2 BSA Calculated1.56 O2 Zrcviarthv33 Physical Exam Constitutional: Alert and in no [...] left mulitiple times. COMPARISON: None. ACCESSION NUMBER(S): [id number] ORDERING CLINICIAN: FRIDA LIEBERMAN TECHNIQUE: Axial sections [...] Electronically signed by: BEAU WALLACE MD Normal [facility] CT Head without Contraston 0 02-27-2021 CT Head limited WO contrast Normal [facility] Work Phone: CBCon 02-14-2021 Erythrocyte distribution width (RBC) [Ratio] 12.3 % Normal 11.5 - 14.5 [facility] Comment on above: Order Comment: PATIE NT FASTING Performed By: #### C #### [address] [place] [address] Hematocrit (Bld) [Volume fraction] 44.8 % Normal 36.0 - 46.0 [facility] Comment on above: Order Comment: PATIE NT FASTING Performed By: #### C BC #### [address] [address] [id number] Hemoglobin (Bld) [Mass/Vol] 14.0 g/dL Normal 12.0 - 16.0 [facility] Comment on above: Order Comment: PATIE NT FASTING Performed By: #### C BC #### [address] [address] [id number] MCHC (RBC) [Mass/Vol] 31.3 g/dL Low 32.0 - 36.0 [facility] Comment on above: Order Comment: PATIE NT FASTING Performed By: #### C BC #### [address] [address] [id number] MCV (RBC) [Entitic vol] 95 fL Normal 80 - 100 [facility] Comment on above: Order Comment: PATIE NT FASTING Performed By: #### C BC #### [place] [address] Platelets (Bld) [#/Vol] 267 10*3/uL Normal 150 - 450 [facility] Comment on above: Order Comment: PATIE NT FASTING Performed By: #### C BC #### [address] [address] [id number] RBC 4.74 x10E12/L Normal 4.00 - 5.20 [facility] Comment on above: Order Comment: PATIE NT FASTING Performed By: #### C BC #### [address] [address] [id number] WBC (Bld) [#/Vol] 6.4 10*3/uL Normal 4.4 - 11.3 [facility] Comment on above: Order Comment: PATIE NT FASTING Performed By: #### C BC #### [place] [id number] COMPREHENSIVE PANELon 2020 Albumin [Mass/Vol] 3.8 g/dL Normal 3.4 - 5.0 [facility] Comment on above: Order Comment: PATIE NT FASTING Performed By: #### C MP #### [address] [address] ALP [Catalytic activity/Vol] 71 U/L Normal 33 - 110 [facility] Comment on above: Order Comment: PATIE NT FASTING Performed By: #### C MP #### [address] [address] ALT [Catalytic activity/Vol] 16 U/L Normal 7 - 45 [facility] Comment on above: Order Comment: PATIE NT FASTING Result Comment: Feli ents treated with Sulfasalazine may generate falsely decreased results for ALT. Performed By: #### C MP #### [address] [address] Anion gap [Moles/Vol] 9 mmol/L Low 10 - 20 [facility] Comment on above: Order Comment: PATIE NT FASTING Performed By: #### C MP #### [address] [address] AST [Catalytic activity/Vol] 16 U/L Normal 9 - 39 [facility] Comment on above: Order Comment: PATIE NT FASTING Performed By: #### C MP #### [address] [address] Bilirubin [Mass/Vol] 0.5 mg/dL Normal 0.0 - 1.2 [facility] Comment on above: Order Comment: PATIE NT FASTING Performed By: #### C MP #### [address] [address] Calcium [Mass/Vol] 9.4 mg/dL Normal 8.6 - 10.3 [facility] Comment on above: Order Comment: PATIE NT FASTING Performed By: #### C MP #### [address] [address] Chloride [Moles/Vol] 107 mmol/L Normal 98 - 107 [facility] Comment on above: Order Comment: PATIE NT FASTING Performed By: #### C MP #### [address] [address] Creatinine [Mass/Vol] 0.79 mg/dL Normal 0.50 - 1.05 [facility] Comment on above: Order Comment: PATIE NT FASTING Performed By: #### C MP #### [address] [address] GFR- AM. >60 Normal >60 [facility] Comment on above: Order Comment: PATIE NT FASTING Result Comment: CALC ULATIONS OF ESTIMATED GFR ARE PERFORMED USING THE MDRD STUDY EQUATION FOR THE IDMS-TRACEABLE CREATININE METHODS. CLIN CHEM 2007;53:766-72 Performed By: #### C MP #### [address] [address] GFR-NON AM. >60 Normal >60 [facility] Comment on above: Order Comment: PATIE NT FASTING Performed By: #### C MP #### [address] [address] Glucose [Mass/Vol] 73 mg/dL Low 74 - 99 [facility] Comment on above: Order Comment: PATIE NT FASTING Performed By: #### C MP #### [address] [address] HCO3 (Bld) [Moles/Vol] 28 mmol/L Normal 21 - 32 [facility] Comment on above: Order Comment: PATIE NT FASTING Performed By: #### C MP #### [address] [address] Potassium [Moles/Vol] 4.2 mmol/L Normal 3.5 - 5.3 [facility] Comment on above: Order Comment: PATIE NT FASTING Performed By: #### C MP #### [address] [address] Protein [Mass/Vol] 6.5 g/dL Normal 6.4 - 8.2 [facility] Comment on above: Order Comment: PATIE NT FASTING Performed By: #### C MP #### [address] [address] Sodium [Moles/Vol] 140 mmol/L Normal 136 - 145 [facility] Comment on above: Order Comment: PATIE NT FASTING Performed By: #### C MP #### [address] [address] Urea nitrogen [Mass/Vol] 15 mg/dL Normal 6 - 23 [facility] Comment on above: Order Comment: PATIE NT FASTING Performed By: #### C MP #### [address] [address] LIPID PANEL (CORONARY RISK 2 )on 02-14-2021 Cholesterol [Mass/Vol] 153 mg/dL Normal 0 - 199 [facility] Comment on above: Order Comment: [...] dosing. Performed By: #### L IPID #### [address] [address] Cholesterol in HDL [Mass/Vol] 59.8 mg/dL Normal [facility] Comment on above: Order Comment: PATIE NT FASTING Result Comment: . AGE VERY LOW LOW NORMAL HIGH 0-19 Y < 35 < 40 40-45 ---- 20-24 Y ---- < 40 >45 ---- >24 Y ---- < 40 40-60 >60 . Performed By: #### L IPID #### [address] [address] Cholesterol in LDL [Mass/Vol] 82 mg/dL Normal 0 - 99 [facility] Comment on above: Order Comment: PATIE NT FASTING Result Comment: . NEAR BORD AGE DESIRABLE OPTIMAL HIGH HIGH VERY HIGH 0-19 Y 0 - 109 --- 110-129 >/= 130 ---- 20-24 Y 0 - 119 --- 120-159 >/= 160 ---- >24 Y 0 - 99 100-129 130-159 160-189 >/=190 . Performed By: #### L IPID #### [address] [address] Cholesterol in VLDL [Mass/Vol] 12 mg/dL Normal 0 - 40 [facility] Comment on above: Order Comment: PATIE NT FASTING Performed By: #### L IPID #### [address] [address] Cholesterol.total/Cho lesterol in HDL [Mass ratio] 2.6 {ratio} Normal [facility] Comment on above: Order Comment: PATIE NT FASTING Result Comment: REF VALUES DESIRABLE < 3.4 HIGH RISK > 5.0 Performed By: #### L IPID #### [address] [address] Triglyceride [Mass/Vol] 58 mg/dL Normal 0 - 149 [facility] Comment on above: Order Comment: [...] dosing. Performed By: #### L IPID #### [address] [address] Laboratory - Chemistry and C hemistry - challengeon 02-14-2021 Albumin BCP dye [Mass/Vol] 3.8 g/dL 3.4 - 5.0 [facility] Work Phone: ALP [Catalytic activity/Vol] 71 U/L 33 - 110 [facility] Work Phone: ALT With P-5'-P [Catalytic activity/Vol] 16 U/L 7 - 45 [facility] Work Phone: Comment on above: Patients treated wit h Sulfasalazine may generate falsely decreased results for ALT. Anion gap [Moles/Vol] 9 mmol/L below low threshold 10 - 20 -[facility] Work Phone: AST With P-5'-P [Catalytic activity/Vol] 16 U/L 9 - 39 -[facility] Work Phone: Bilirubin [Mass/Vol] 0.5 mg/dL 0.0 - 1.2 [facility] Work Phone: Calcium [Mass/Vol] 9.4 mg/dL 8.6 - 10.3 [facility] Work Phone: Chloride [Moles/Vol] 107 mmol/L 98 - 107 [facility] Work Phone: CO2 [Moles/Vol] 28 mmol/L 21 - 32 [facility] Work Phone: Creatinine [Mass/Vol] 0.79 mg/dL See Below - [facility] Work Phone: Comment on above: Reference Range: 0.5 0 - 1.05 Glucose [Mass/Vol] 73 mg/dL below low threshold 74 - 99 [facility] Work Phone: Potassium [Moles/Vol] 4.2 mmol/L 3.5 - 5.3 [facility] Work Phone: Protein [Mass/Vol] 6.5 g/dL 6.4 - 8.2 [facility] Work Phone: Sodium [Moles/Vol] 140 mmol/L 136 - 145 [facility] Work Phone: Urea nitrogen [Mass/Vol] 15 mg/dL 6 - 23 [facility] Work Phone: Laboratory - Hematology and Cell countson 02-14-2021 Erythrocyte distribution width (RBC) [Ratio] 12.3 % See Below [facility] Work Phone: Comment on above: Reference Range: 11. 5 - 14.5 Hematocrit (Bld) [Volume fraction] 44.8 % See Below [facility] Work Phone: Comment on above: Reference Range: 36. 0 - 46.0 Hemoglobin (Bld) [Mass/Vol] 14.0 g/dL See Below [facility] Work Phone: Comment on above: Reference Range: 12. 0 - 16.0 MCHC (RBC) [Mass/Vol] 31.3 g/dL below low threshold See Below [facility] Work Phone: Comment on above: Reference Range: 32. 0 - 36.0 MCV (RBC) [Entitic vol] 95 fL 80 - 100 [facility] Work Phone: Platelets (Bld) [#/Vol] 267 10*3/uL 150 - 450 [facility] Work Phone: RBC (Bld) [#/Vol] 4.74 {x10E12/L} See Below [facility] Work Phone: Comment on above: Reference Range: 4.0 0 - 5.20 WBC (Bld) [#/Vol] 6.4 10*3/uL 4.4 - 11.3 [facility] Work Phone: Lipid Panelon 02-14-2021 Cholesterol [Mass/Vol] 153 mg/dL 0 - 199 [facility] Work Phone: Comment on above: . AGE [...] dosing. Cholesterol in HDL [Mass/Vol] 59.8 mg/dL [facility] Work Phone: Comment on above: . AGE VERY LOW LOW N ORMAL HIGH 0-19 Y < 35 < 40 40-45 ---- 20- 24 Y ---- < 40 >45 ---- >24 Y ---- < 40 40-60 >60. Cholesterol in LDL [Mass/Vol] 82 mg/dL 0 - 99 [facility] Work Phone: Comment on above: . NEAR BORD AGE RANDOLPH RABLE OPTIMAL HIGH HIGH VERY HIGH 0-19 Y 0 - 109 --- 110-129 >/= 130 ---- 20-24 Y 0 - 119 --- 120-159 >/= 160 ---- >24 Y 0 - 99 100-129 130-159 160-189 >/=190. Cholesterol.total/Cho lesterol in HDL [Mass ratio] 2.6 {ratio} [facility] Work Phone: Comment on above: REF VALUESDESIRABLE < 3.4HIGH RISK > 5.0 Triglyceride [Mass/Vol] 58 mg/dL 0 - 149 [facility] Work Phone: Comment on above: . AGE [...] Lipid Panel 12 mg/dL 0 - 40 [facility] Work Phone: No Panel Informationon 02-14 >60 >60 -[facility] Work Phone: Comment on above: [...] left eye Complete Blood Count; Status:Complete; Done: [id number] 07:39AM Performed:[facility]; Due:[id number];Ordered; For:Health Maintenance, GERD (gastroesophageal reflux disease), Vision loss, left eye; Ordered By:Frida Lieberman; Comprehensive Metabolic Panel; Status:Complete; Done: [id number] 07:39AM Performed:[facility]; Due:[id number];Ordered; For:Health Maintenance, GERD (gastroesophageal reflux disease), Vision loss, left eye; Ordered By:Frida Lieberman; Lipid Panel; Status:Complete; Done: [id number] 07:39AM Performed:[facility]; Due:[id number];Ordered; For:Health Maintenance, GERD (gastroesophageal reflux disease), Vision loss, left eye; Ordered By:Frida Lieberman; Ocular migraine, Vision loss, left eye Start: NIFEdipine ER 30 MG Oral Tablet Extended Release 24 Hour; take 1 tablet by mouth once daily Rx By: Frida Lieberman; Dispense: 30 Days ; #:30 Tablet; Refill: 1;For: Ocular migraine, Vision loss, left eye; TONE = N; Verified Transmission to [facility] [address]; Last Updated By: Cathy Kong; 02/12/2021 6:03:15 PM Vision loss, left eye CT Head without Contrast; Status:Complete; Done: [id number] 08:41AM Performed:;Ordered; For:Vision loss, left eye; Ordered [...] past surgical history Social History Problems Non-smoker (V44.89) (Z78.9) Allergies Medication No Known Drug Allergies Recorded By: Roula Vidales; 12/09/2017 3:02:53 PM Current Meds Medication NameInstruction Advil Cold/Sinus 30-200 MG Oral TabletTAKE 1 TABLET Every 8 hours Fluti (more content not included)... Normal [facility] - Chemistry and C hemistry - challengeon 01-24-2021 TSH Qn 2.43 m[IU]/L See Below [facility] Work Phone: Comment on above: Reference Range: 0.4 4 - 3.98 TSH testing is performed using different testing methodology at [facility] than at other [facility]. Direct result comparisons should only be made within the same method. T4 - Free Thyroxine, Serumon 01-24-2021 Free T4 [Mass/Vol] 0.86 ng/dL See Below [facility] Work Phone: Comment on above: Reference Range: 0.6 1 - 1.12 Thyroxine Free testing is performed using different testing methodology at [facility] than at other [facility]. Direct result comparisons should only be made [...] THYROXINE,FREE 0.86 ng/dL Normal 0.61 - 1.12 [facility] Comment on above: Result Comment: Thyr oxine Free testing is performed using different testing methodology at [facility] than at [facility]. Direct result comparisons should only be [...] draw. Performed By: #### T 4FRE #### [address] [address] TRIIODOTHYRONINEon TRIIODOTHYRONINE 79 ng/dL Normal 60 - 200 [facility] Comment on above: Performed By: #### T 3 #### [facility] [address] [place] [address] TSH WITH REFLEX TO FREE T4 I F ABNORMALon 01-24-2021 TSH Qn 2.43 m[IU]/L Normal 0.44 - 3.98 [facility] Comment on above: Result Comment: TSH testing is performed using different testing methodology at [facility] than at [facility]. Direct result comparisons should only be made within the same method. Performed By: #### T HYDS #### [address] [address] Triiodothyronine, Level (T3) on 01-24-2021 T3 [Mass/Vol] 79 ng/dL 60 - 200 [facility] Work Phone: Tobacco Screening.on 021 Fall risk assessment a) No falls within the last year [facility] Work Phone: Tobacco Screening. b) No [facility] Work Phone: FREE T4on 07-24-2020 Free T4 [Mass/Vol] 1.3 ng/dL Normal 0.9-1.7 [facility] Comment on above: Result Comment: Perf ormed at [address] [address] Performed By: #### T 4F #### [facility] [address] [address] Liquid PAPon 07-24-2020 Liquid PAP Patient Name: RAMONA WAHL [facility]. Rec. #: [id number] FINAL CYTOLOGIC DIAGNOSIS SPECIMEN ADEQUACY: Satisfactory for evaluation. Endocervical transformation zone component present. GENERAL CATEGORIZATION: Negative for intraepithelial lesion or malignancy. See interpretation-result. INTERPRETATION/RESULT: Negative for intraepithelial lesion or malignancy. Cellular changes associated with atrophy are present. The above diagnosis was rendered at [employer] [address] [place] [address], CLIA number [id number]. This information is included on the report [...] test, please call the pathology laboratory. Normal [facility] Comment on above: Performed By: #### C BCD #### [address] [address] T3 TOTALon 07-24-2020 T3 TOTAL 76 NG/DL Low 94-170 [facility] Comment on above: Result Comment: Perf ormed at [address] [address] Performed By: #### C BCD #### [facility] [address] [address] TSHon 07-24-2020 TSH Qn 1.97 MIU/L Normal 0.27-4.20 [facility] Comment on above: Result Comment: Perf ormed at [address] [address] Performed By: #### G L1P #### [facility] [address] [address] URINE CULTUREon 06-12-2020 Bacteria identified Cx Nom (U) Specimen source XXX: CLEAN VOIDED MIDSTREAM Performed at [address] [address] Service Cmnt XXX-Imp: NONE Performed at [address] [address] CC Number Ur: 10,000-50,000 CFU/ml Bacteria identified: NORMAL UROGENITAL MATEO [place] [address] : FINAL 06/12/2020 [facility] Comment on above: Performed By: #### C BCD #### [place] [address] CBC with Diffon 06-11-2020 AB IMMATURE NEUT 0.13 K/UL High 0.0-0.1 [facility] Comment on above: Performed By: #### C BCD #### [facility] [address] [address] ABS BASO 0.05 K/UL Normal 0.00-0.22 [facility] Comment on above: Performed By: #### C BCD #### [facility] [address] [address] ABS EOS 0.13 K/UL Normal 0-0.45 [facility] Comment on above: Performed By: #### C BCD #### [facility] [address] [address] ABS NEUTROPHILS 8.66 K/UL High 1.8-7.7 [facility] Comment on above: Performed By: #### C BCD #### [facility] [address] [address] ABS.NEUT.CALCULATED 8.66 K/UL [facility] Comment on above: Result Comment: Perf ormed at [address] [address] Performed By: #### C BCD #### [facility] [address] [address] Basophils/100 WBC (Bld) 0.40 % Normal 0-1 [facility] Comment on above: Performed By: #### C BCD #### [facility] [address] [place] [address] DIFF TYPE AUTO DIFF Normal [facility] Comment on above: Performed By: #### C BCD #### [place] [address] [place] [address] Eosinophils/100 WBC (Bld) 1.10 % Normal 0-3 [facility] Comment on above: Performed By: #### C BCD #### [address] [address] [place] [address] Erythrocyte distribution width (RBC) [Ratio] 13.5 % Normal 11.7-15.0 [facility] Comment on above: Performed By: #### C BCD #### [address] [address] [place] [address] Hematocrit (Bld) [Volume fraction] 39.2 % Normal 36-44 [facility] Comment on above: Performed By: #### C BCD #### [address] [address] [place] [address] Hemoglobin (Bld) [Mass/Vol] 13.0 g/dL Normal 12.0-15.0 [facility] Comment on above: Performed By: #### C BCD #### [address] [place] [address] [place] [address] Lymphocytes (Bld) [#/Vol] 1.96 10*3/uL Normal 1.2-3.2 [facility] Comment on above: Performed By: #### C BCD #### [address] [place] [address] [place] [address] Lymphocytes/100 WBC (Bld) 16.40 % Low 20-40 [facility] Comment on above: Performed By: #### C BCD #### [address] [place] [address] [place] [address] MCH (RBC) [Entitic mass] 32.5 pg Normal 26-34 [facility] Comment on above: Performed By: #### C BCD #### [address] [place] [address] [place] [address] MCHC (RBC) [Mass/Vol] 33.2 % Normal 31-37 [facility] Comment on above: Performed By: #### C BCD #### [facility] [place] [address] [place] [address] MCV (RBC) [Entitic vol] 98.0 fL Normal 80-100 [facility] Comment on above: Performed By: #### C BCD #### [facility] [address] [address] [place] [address] MEAN PLT VOL 10.3 CU Normal 7.0-12.6 [facility] Comment on above: Performed By: #### C BCD #### [facility] [address] [place] [address] [place] [address] Monocytes (Bld) [#/Vol] 1.05 10*3/uL High 0-0.8 [facility] Comment on above: Performed By: #### C BCD #### [address] [address] [place] [address] Monocytes/100 WBC (Bld) 8.80 % High 0-8 [facility] Comment on above: Performed By: #### C BCD #### [address] [place] [address] [address] [place] [address] Neutrophils/100 WBC (Bld) 72.20 % High 50-70 [facility] Comment on above: Performed By: #### C BCD #### [address] [address] [place] [address] Neutrophils/100 WBC (Bld) 1.10 % High 0.0-1.0 [facility] Comment on above: Performed By: #### C BCD #### [facility] [address] [address] [place] [address] NRBC'S 0 /100 WBC Normal 0 [facility] Comment on above: Performed By: #### C BCD #### [facility] [address] [address] [place] [address] Platelets (Bld) [#/Vol] 239 10*3/uL Normal 150-450 [facility] Comment on above: Performed By: #### C BCD #### [facility] [address] [place] [address] [address] [place] [address] RBC (Bld) [#/Vol] 4.00 M/UL Normal 4.0-4.9 [facility] Comment on above: Performed By: #### C BCD #### [address] [address] [place] [address] RDW-SD 48.4 FL Normal 37.0-54.0 [facility] Comment on above: Performed By: #### C BCD #### [address] [address] WBC (Bld) [#/Vol] 12.0 10*3/uL High 4.5-11.0 [facility] Comment on above: Performed By: #### C BCD #### [address] [address] Hematologyon 06-11-2020 Basophils (Bld) [#/Vol] Abs Baso 0.05 K/UL (0.00-0.22 K/UL) 0.00 - 0.22 K/UL [facility] Work Phone: [phone] Basophils/100 WBC (Bld) Basophil 0.40 % (0-1 %) 0 - 1 % S Work Phone: [phone] Eosinophils (Bld) [#/Vol] Abs Eos 0.13 K/UL (0-0.45 K/UL) 0 - 0.45 K/UL S Work Phone: [phone] Eosinophils/100 WBC (Bld) Eosinophil 1.10 % (0-3 %) 0 - 3 % S Work Phone: [phone] Hematocrit (Bld) [Volume fraction] HCT 39.2 % (36-44 %) 36 - 44 % S Work Phone: [phone] Hemoglobin (Bld) [Mass/Vol] HGB 13.0 GM/DL (12.0-15.0 GM/DL) 12.0 - 15.0 GM/DL S Work Phone: [phone] Lymphocytes (Bld) [#/Vol] Abs Lymph 1.96 K/UL [...] S Work Phone: Monocytes (Bld) [#/Vol] Abs [place] 1.05 K/UL H (0-0.8 K/UL) High 0 - 0.8 K/UL [facility] Work Phone: Monocytes/100 WBC (Bld) Monocyte 8.80 % H (0-8 %) High 0 - 8 % [facility] Work Phone: Neutrophils (Bld) [#/Vol] Abs.Neut.Calculated 8.66 K/UL (Reference Range: not available) Performed at [address] [address] [facility] Work Phone: Neutrophils (Bld) [#/Vol] Abs Neut 8.66 K/UL H (1.8-7.7 K/UL) High 1.8 - 7.7 K/UL [facility] Work Phone: Platelets (Bld) [#/Vol] PLT 239 K/UL (150-450 K/UL) 150 - 450 K/UL [facility] Work Phone: RBC (Bld) [#/Vol] RBC 4.00 M/UL (4.0-4 .9 M/UL) 4.0 - 4.9 M/UL [facility] Work Phone: WBC (Bld) [#/Vol] WBC 12.0 K/UL H (4.5-11.0 K/UL) High 4.5 - 11.0 K/UL [facility] Work Phone: Imm/Pathon 06-11-2020 Bacteria identified Cx Nom (Unsp spec) Culture Urine Specimen Number: [id number] Sample Collection Date/Time: 06/11/2020 3:56 AM Specimen Source: CVGA Specimen Description: CLEAN VOIDED MIDSTREAM Performed at [address] [address] Special Requests: NONE Performed at [address] [address] [place] Count: 10,000-50,000 CFU/ml Culture Urine: NORMAL UROGENITAL MATEO Performed at [address] [address] Report Status: FINAL 06/12/2020 [facility] Work Phone: Otheron 06-11-2020 Differential cell count method Nom (Bld) Diff Type AUTO DIFF (Reference Range: not available) [facility] Work Phone: Erythrocyte distribution width (RBC) [Entitic vol] RDW SD 48.4 FL (37.0-54.0 FL) 37.0 - 54.0 FL [facility] Work Phone: Erythrocyte distribution width (RBC) [Ratio] RDW CV 13.5 % (11.7-15.0 %) 11.7 - 15.0 % [facility] Work Phone: Immature granulocytes (Bld) [#/Vol] Abs Imm Neut 0.13 K/UL H (0.0-0.1 K/UL) High 0.0 - 0.1 K/UL [facility] Work Phone: MCHC (RBC) [Mass/Vol] MCHC 33.2 % (31-37 %) 31 - 37 % [facility] Work Phone: Neutrophils.immature/ 100 WBC (Bld) Immature Neut % 1.10 % H (0.0-1.0 %) High 0.0 - 1.0 % [facility] Work Phone: Nucleated RBC/100 WBC (Bld) [Ratio] NRBCs 0 /100 WBC (0 /100 WBC) [facility] Work Phone: Platelet mean volume (Bld) [Entitic vol] MPV 10.3 CU (7.0-12.6 CU) 7.0 - 12.6 CU [facility] Work Phone: Segmented neutrophils/100 WBC (Bld) Granulocyte 72.20 % H (50-70 %) High 50 - 70 % [facility] Work Phone: [phone] FLUAV RNA TRISH+probe Ql (Nph) FLU A by PCR NEGATIVE (Reference Range: not available) S Work Phone: [phone] FLUBV RNA TRISH+probe Ql (Nph) FLU B by PCR NEGATIVE (Reference Range: not available) S Work Phone: [phone] SARS-CoV-2 by PCR NEGATIVE (NEG ) [facility] Work Phone: [phone] SARS-CoV-2,INFLUENZA A/B NUC LEIC ACID TESTon 06-11-2020 EUA DISCLAIMER [facility] Comment on above: Result Comment: This [...] is terminated or revoked sooner. Performed at [place] [address] Performed By: #### F LUCOV #### [place] [address] FLU A by PCR Negative [facility] Comment on above: Performed By: #### F LUCOV #### [place] [address] FLU B by PCR Negative [facility] Comment on above: Performed By: #### F LUCOV #### [place] [address] SARS-CoV-2 by PCR Negative Normal [facility] Comment on above: Performed By: #### F LUCOV #### [facility] [address] [place] [address] CBC with Diffon 03-15-2020 AB IMMATURE NEUT 0.08 K/UL Normal 0.0-0.1 [facility] Comment on above: Performed By: #### C BCD #### [facility] [place] [address] [place] [address] ABS BASO 0.05 K/UL Normal 0.00-0.22 [facility] Comment on above: Performed By: #### C BCD #### [facility] [place] [address] [place] [address] ABS EOS 0.19 K/UL Normal 0-0.45 [facility] Comment on above: Performed By: #### C BCD #### [place] [address] [place] [address] ABS NEUTROPHILS 7.58 K/UL Normal 1.8-7.7 [facility] Comment on above: Performed By: #### C BCD #### [place] [address] [place] [address] ABS.NEUT.CALCULATED 7.58 K/UL Normal [facility] Comment on above: Result Comment: Perf ormed at [address] [address] Performed By: #### C BCD #### [address] [place] [address] Basophils/100 WBC (Bld) 0.50 % Normal 0-1 [facility] Comment on above: Performed By: #### C BCD #### [place] [address] [place] [address] DIFF TYPE AUTO DIFF Normal [facility] Comment on above: Performed By: #### C BCD #### [place] [address] [place] [address] Eosinophils/100 WBC (Bld) 1.90 % Normal 0-3 [facility] Comment on above: Performed By: #### C BCD #### [facility] [address] [address] Erythrocyte distribution width (RBC) [Ratio] 13.2 % Normal 11.7-15.0 [facility] Comment on above: Performed By: #### C BCD #### [facility] [address] [place] [address] Hematocrit (Bld) [Volume fraction] 39.7 % Normal 36-44 [facility] Comment on above: Performed By: #### C BCD #### [facility] [place] [address] [address] [place] [address] Hemoglobin (Bld) [Mass/Vol] 12.5 g/dL Normal 12.0-15.0 [facility] Comment on above: Performed By: #### C BCD #### [facility] [place] [address] [place] [address] Lymphocytes (Bld) [#/Vol] 1.44 10*3/uL Normal 1.2-3.2 [facility] Comment on above: Performed By: #### C BCD #### [place] [address] [place] [address] Lymphocytes/100 WBC (Bld) 14.30 % Low 20-40 [facility] Comment on above: Performed By: #### C BCD #### [place] [address] [place] [address] MCH (RBC) [Entitic mass] 31.7 pg Normal 26-34 [facility] Comment on above: Performed By: #### C BCD #### [place] [address] [place] [address] MCHC (RBC) [Mass/Vol] 31.5 % Normal 31-37 [facility] Comment on above: Performed By: #### C BCD #### [facility] [place] [address] [place] [address] MCV (RBC) [Entitic vol] 100.8 fL High 80-100 [facility] Comment on above: Performed By: #### C BCD #### [facility] [place] [address] [place] [address] MEAN PLT VOL 9.7 CU Normal 7.0-12.6 [facility] Comment on above: Performed By: #### C BCD #### [facility] [place] [address] [place] [address] Monocytes (Bld) [#/Vol] 0.76 10*3/uL Normal 0-0.8 [facility] Comment on above: Performed By: #### C BCD #### [facility] [address] [place] [address] Monocytes/100 WBC (Bld) 7.50 % Normal 0-8 [facility] Comment on above: Performed By: #### C BCD #### [facility] [address] [place] [address] Neutrophils/100 WBC (Bld) 75.00 % High 50-70 [facility] Comment on above: Performed By: #### C BCD #### [facility] [address] [place] [address] Neutrophils/100 WBC (Bld) 0.80 % Normal 0.0-1.0 [facility] Comment on above: Performed By: #### C BCD #### [facility] [address] [address] [place] [address] NRBC'S 0 /100 WBC Normal 0 [facility] Comment on above: Performed By: #### C BCD #### [facility] [address] [address] [place] [address] Platelets (Bld) [#/Vol] 271 10*3/uL Normal 150-450 [facility] Comment on above: Performed By: #### C BCD #### [place] [address] [place] [address] RBC (Bld) [#/Vol] 3.94 M/UL Low 4.0-4.9 [facility] Comment on above: Performed By: #### C BCD #### [facility] [address] [place] [address] RDW-SD 49.4 FL Normal 37.0-54.0 [facility] Comment on above: Performed By: #### C BCD #### [facility] [address] [place] [address] WBC (Bld) [#/Vol] 10.1 10*3/uL Normal 4.5-11.0 [facility] Comment on above: Performed By: #### C BCD #### [facility] [address] [address] GLUCOSE 1 HR. P.D.on 020 Glucose [Mass/Vol] 98 mg/dL Normal 70-139 [facility] Comment on above: Result Comment: Perf ormed at [address] [address] Performed By: #### G L1P #### [facility] [place] [id number] URINE CULTUREon 02-26-2020 Bacteria identified Cx Nom (U) Specimen source XXX: CLEAN VOIDED MIDSTREAM Service Cmnt XXX-Imp: NONE Bacteria identified: COAGULASE NEGATIVE STAPHYLOCOCCI [place] [address] : FINAL 02/26/2020 ANTIBIOTIC SUMMER/INTERP ORGANISM: 1 COAGULASE NEGATIVE STAPHYLOCOCCI SUMMER SUMMER CEFAZOLIN <=4 SUSCEPTIBLE OXACILLIN <=0.25 SUSCEPTIBLE TETRACYCLINE <=2 SUSCEPTIBLE TRIMETHOPRIM SULFAMETHOXAZOLE <=0.5/9.5 SUSCEPTIBLE LEVOFLOXACIN <=0.5 SUSCEPTIBLE [facility] Comment on above: Performed By: #### C BCD #### [facility] [address] [address] CBCon 02-22-2020 Erythrocyte distribution width (RBC) [Ratio] 13.9 % Normal 11.5 - 14.5 [facility] Comment on above: Performed By: #### C BC #### [address] [address] Hematocrit (Bld) [Volume fraction] 36.0 % Normal 36.0 - 46.0 [facility] Comment on above: Performed By: #### C BC #### [address] [address] Hemoglobin (Bld) [Mass/Vol] 11.7 g/dL Low 12.0 - 16.0 [facility] Comment on above: Performed By: #### C BC #### [address] [address] MCHC (RBC) [Mass/Vol] 32.5 g/dL Normal 32.0 - 36.0 [facility] Comment on above: Performed By: #### C BC #### [address] [address] MCV (RBC) [Entitic vol] 99 fL Normal 80 - 100 [facility] Comment on above: Performed By: #### C BC #### [place] [address] Platelets (Bld) [#/Vol] 240 10*3/uL Normal 150 - 450 [facility] Comment on above: Performed By: #### C BC #### [place] [address] RBC (Bld) [#/Vol] 3.63 x10E12/L Low 4.00 - 5.20 [facility] Comment on above: Performed By: #### C BC #### [place] [address] WBC (Bld) [#/Vol] 9.4 10*3/uL Normal 4.4 - 11.3 [facility] Comment on above: Performed By: #### C BC #### [place] [address] COMPREHENSIVE PANELon 2019 Albumin [Mass/Vol] 3.2 g/dL Low 3.4 - 5.0 [facility] Comment on above: Performed By: #### C MP #### [place] [address] ALP [Catalytic activity/Vol] 61 U/L Normal 33 - 110 [facility] Comment on above: Performed By: #### C MP #### [place] [address] ALT [Catalytic activity/Vol] 24 U/L Normal 7 - 45 [facility] Comment on above: Result Comment: Feli ents treated with Sulfasalazine may generate falsely decreased results for ALT. Performed By: #### C MP #### [place] [address] Anion gap [Moles/Vol] 8 mmol/L Low 10 - 20 [facility] Comment on above: Performed By: #### C MP #### [place] [id number] AST [Catalytic activity/Vol] 19 U/L Normal 9 - 39 [facility] Comment on above: Performed By: #### C MP #### [place] [id number] Bilirubin [Mass/Vol] 0.3 mg/dL Normal 0.0 - 1.2 [facility]i [facility] Comment on above: Performed By: #### C MP #### [place] [address] Calcium [Mass/Vol] 8.8 mg/dL Normal 8.6 - 10.3 [facility] Comment on above: Performed By: #### C MP #### [place] [address] Chloride [Moles/Vol] 108 mmol/L High 98 - 107 [facility] Comment on above: Performed By: #### C MP #### [place] [address] Creatinine [Mass/Vol] 0.52 mg/dL Normal 0.50 - 1.05 [facility] Comment on above: Performed By: #### C MP #### [place] [address] GFR- AM. >60 Normal >60 [facility] Comment on above: Result Comment: CALC ULATIONS OF ESTIMATED GFR ARE PERFORMED USING THE MDRD STUDY EQUATION FOR THE IDMS-TRACEABLE CREATININE METHODS. CLIN CHEM 2007;53:766-72 Performed By: #### C MP #### [place] [id number] GFR-NON AM. >60 Normal >60 Sabino [facility] Comment on above: Performed By: #### C MP #### [place] [id number] Glucose [Mass/Vol] 69 mg/dL Low 74 - 99 [facility] Comment on above: Performed By: #### C MP #### [address] [address] HCO3 (Bld) [Moles/Vol] 27 mmol/L Normal 21 - 32 [facility] Comment on above: Performed By: #### C MP #### [address] [address] Potassium [Moles/Vol] 3.9 mmol/L Normal 3.5 - 5.3 [facility] Comment on above: Performed By: #### C MP #### [address] [address] Protein [Mass/Vol] 5.5 g/dL Low 6.4 - 8.2 [place] Comment on above: Performed By: #### C MP #### [address] [address] Sodium [Moles/Vol] 139 mmol/L Normal 136 - 145 [place] Comment on above: Performed By: #### C MP #### [address] [address] Urea nitrogen [Mass/Vol] 12 mg/dL Normal 6 - 23 [facility] Comment on above: Performed By: #### C MP #### [address] [address] LIPID PANEL (CORONARY RISK 2 )on 02-22-2020 Cholesterol [Mass/Vol] 243 mg/dL High 0 - 199 [facility] Comment on above: Result Comment: [...] dosing. Performed By: #### L IPID #### [address] [address] Cholesterol in HDL [Mass/Vol] 68.8 mg/dL Normal [facility] Comment on above: Result Comment: . AGE VERY LOW LOW NORMAL HIGH 0-19 Y < 35 < 40 40-45 ---- 20-24 Y ---- < 40 >45 ---- >24 Y ---- < 40 40-60 >60 . Performed By: #### L IPID #### [address] [address] Cholesterol in LDL [Mass/Vol] 145 mg/dL High 0 - 99 [facility] Comment on above: Result Comment: . NEAR BORD AGE DESIRABLE OPTIMAL HIGH HIGH VERY HIGH 0-19 Y 0 - 109 --- 110-129 >/= 130 ---- 20-24 Y 0 - 119 --- 120-159 >/= 160 ---- >24 Y 0 - 99 100-129 130-159 160-189 >/=190 . Performed By: #### L IPID #### [address] [address] Cholesterol in VLDL [Mass/Vol] 29 mg/dL Normal 0 - 40 [facility] Comment on above: Performed By: #### L IPID #### [address] [address] Cholesterol.total/Cho lesterol in HDL [Mass ratio] 3.5 {ratio} Normal [facility] Comment on above: Result Comment: REF VALUES DESIRABLE < 3.4 HIGH RISK > 5.0 Performed By: #### L IPID #### [address] [address] Triglyceride [Mass/Vol] 146 mg/dL Normal 0 - 149 [facility] Comment on above: Result Comment: . [...] dosing. Performed By: #### L IPID #### [facility] [address] [place] [address] RPRon 01-03-2020 Reagin Ab RPR Ql (S) Normal [facility] Comment on above: Result Comment: NONR EACTIVE [place] [address] Performed By: #### C BCD #### [place] [address] HIV-1 P24 Ag+HIV-1-2 Abon HIV 1 2 ANTIBODY Test Not Indicated [facility] Comment on above: Performed By: #### C BCD #### [place] [address] HIV 12 Ag/Ab [facility] Comment on above: Result Comment: Non Reactive Reference range: NONREACTIVE Performed By: #### C BCD #### [place] [address] HIV Interpretation [facility] Comment on above: Result Comment: Nega tive No evidence of HIV-1 or HIV-2 infection. Should recent infection be suspected, repeat testing may be considered 2-3 weeks after this draw. HIV Information: [place] Rev. Code 3701.243(E): This information has been [...] test results or diagnoses. Performed at the [facility] unless otherwise noted. Performed By: #### C BCD #### [address] [address] ABO RH ANTIBODY SCREENon ABO and Rh group Nom (Bld) ABO/RH(D) - O POSITIVE ANTIBODY SCREEN - NEGATIVE PT TRANSFUSION HISTORY - BLOOD BANK RECORD SEARCH COMPLETED NO PREVIOUS RECORD Performed at [address] [address] [facility] Comment on above: Performed By: #### C BCD #### [address] [address] CBC WITHOUT DIFFon 0 Erythrocyte distribution width (RBC) [Ratio] 13.2 % Normal 11.7-15.0 [facility] Comment on above: Performed By: #### G L1P #### [address] [address] Hematocrit (Bld) [Volume fraction] 38.2 % Normal 36-44 [facility] Comment on above: Performed By: #### G L1P #### [address] [address] Hemoglobin (Bld) [Mass/Vol] 12.4 g/dL Normal 12.0-15.0 [facility] Comment on above: Performed By: #### G L1P #### [address] [address] MCH (RBC) [Entitic mass] 30.8 pg Normal 26-34 [facility] Comment on above: Performed By: #### G L1P #### [address] [address] MCHC (RBC) [Mass/Vol] 32.5 % Normal 31-37 [facility] Comment on above: Performed By: #### G L1P #### [address] [address] MCV (RBC) [Entitic vol] 95.0 fL Normal 80-100 [facility] Comment on above: Performed By: #### G L1P #### [address] [address] MEAN PLT VOL 10.4 CU Normal 7.0-12.6 [facility] Comment on above: Performed By: #### G L1P #### [address] [address] NRBC'S 0 /100 WBC Normal 0 [facility] Comment on above: Result Comment: Perf ormed at [address] [address] Performed By: #### G L1P #### [address] [address] Platelets (Bld) [#/Vol] 301 10*3/uL Normal 150-450 [facility] Comment on above: Performed By: #### G L1P #### [address] [address] RBC (Bld) [#/Vol] 4.02 M/UL Normal 4.0-4.9 [facility] Comment on above: Performed By: #### G L1P #### [address] [address] RDW-SD 46.5 FL Normal 37.0-54.0 [facility] Comment on above: Performed By: #### G L1P #### [address] [address] WBC (Bld) [#/Vol] 9.0 10*3/uL Normal 4.5-11.0 [facility] Comment on above: Performed By: #### G L1P #### [address] [address] HEP B SURF AGon 12-31-2019 HEP B SURF AG Normal [facility] Comment on above: Result Comment: NEGA TIVE Performed at [address] [address] Performed By: #### H BGP #### [address] [address] GARRY PANORAMAon 12-31-2019 GARRY PANORAMA Specimen sent,Result s will be sent to Physician [facility] Comment on above: Performed By: #### C BCD #### Main Laboratory [address] [address] RUBELLAon 12-31-2019 RUBELLA 74.02 IU/ml Normal [facility] Comment on above: Result Comment: Julisa benson Range: Negative: <10 IU/ml Positive: => 10 IU/ml NOTE: A positive result is consistant with immunity to Rubella Performed at [place] [address] Performed By: #### C BCD #### [address] [address] TSHon 12-31-2019 TSH Qn 2.91 MIU/L Normal 0.27-4.20 [facility] Comment on above: Result Comment: Perf ormed at [place] [address] Performed By: #### T SHR #### [address] [address] PROGRESSon 12-01-2019 PROGRESS HNO ID: [id number] Author: Jada Brand) Marquis Service: Obstetrics Author [...] method. 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 bleeding, abnormal vaginal [...] during 12/01/2019 Overview Note: - Transfer from [place] ED - S/p 2L IVF, Zofran, Reglan [...] 2019 TIME: 3:46 AM PAGER/CONTACT #: Normal [facility] CBC with Diffon 11-08-2019 AB IMMATURE NEUT 0.04 K/UL Normal 0.0-0.1 [facility] Comment on above: Performed By: #### G L1P #### [facility] [place] [address] [place] [address] ABS BASO 0.04 K/UL Normal 0.00-0.22 [facility] Comment on above: Performed By: #### G L1P #### [facility] [place] [address] [place] [address] ABS EOS 0.13 K/UL Normal 0-0.45 [facility] Comment on above: Performed By: #### G L1P #### [facility] [place] [address] [place] [address] ABS NEUTROPHILS 9.55 K/UL High 1.8-7.7 [facility] Comment on above: Performed By: #### G L1P #### [place] [address] [place] [address] ABS.NEUT.CALCULATED 9.55 K/UL Normal [facility] Comment on above: Result Comment: Perf ormed at [place] [address] [address] [place] [address] Performed By: #### G L1P #### [place] [address] [place] [address] Basophils/100 WBC (Bld) 0.30 % Normal 0-1 [facility] Comment on above: Performed By: #### G L1P #### [place] [address] [place] [address] DIFF TYPE AUTO DIFF Normal [facility] Comment on above: Performed By: #### G L1P #### [place] [address] [place] [address] Eosinophils/100 WBC (Bld) 1.10 % Normal 0-3 [facility] Comment on above: Performed By: #### G L1P #### [place] [address] [place] [address] Erythrocyte distribution width (RBC) [Ratio] 12.2 % Normal 11.7-15.0 [facility] Comment on above: Performed By: #### G L1P #### [place] [address] [place] [address] Hematocrit (Bld) [Volume fraction] 44.9 % High 36-44 [facility] Comment on above: Performed By: #### G L1P #### [place] [address] [place] [address] Hemoglobin (Bld) [Mass/Vol] 14.9 g/dL Normal 12.0-15.0 [facility] Comment on above: Performed By: #### G L1P #### [place] [address] [place] [address] Lymphocytes (Bld) [#/Vol] 1.69 10*3/uL Normal 1.2-3.2 [facility] Comment on above: Performed By: #### G L1P #### [place] [address] [place] [address] Lymphocytes/100 WBC (Bld) 13.80 % Low 20-40 [facility] Comment on above: Performed By: #### G L1P #### [facility] [place] [address] [place] [address] MCH (RBC) [Entitic mass] 30.2 pg Normal 26-34 [facility] Comment on above: Performed By: #### G L1P #### [facility] [place] [address] [place] [address] MCHC (RBC) [Mass/Vol] 33.2 % Normal 31-37 [facility] Comment on above: Performed By: #### G L1P #### [facility] [place] [address] [place] [address] MCV (RBC) [Entitic vol] 91.1 fL Normal 80-100 [facility] Comment on above: Performed By: #### G L1P #### [place] [address] [place] [address] MEAN PLT VOL 10.2 CU Normal 7.0-12.6 [facility] Comment on above: Performed By: #### G L1P #### [place] [address] [place] [address] Monocytes (Bld) [#/Vol] 0.78 10*3/uL Normal 0-0.8 [facility] Comment on above: Performed By: #### G L1P #### [address] [address] [place] [address] Monocytes/100 WBC (Bld) 6.40 % Normal 0-8 [facility] Comment on above: Performed By: #### G L1P #### [address] [address] [place] [address] Neutrophils/100 WBC (Bld) 78.10 % High 50-70 [facility] Comment on above: Performed By: #### G L1P #### [place] [address] [place] [address] Neutrophils/100 WBC (Bld) 0.30 % Normal 0.0-1.0 [facility] Comment on above: Performed By: #### G L1P #### [address] [address] [place] [address] NRBC'S 0 /100 WBC Normal 0 [facility] Comment on above: Performed By: #### G L1P #### [address] [address] [place] [address] Platelets (Bld) [#/Vol] 239 10*3/uL Normal 150-450 [facility] Comment on above: Performed By: #### G L1P #### [address] [address] [place] [address] RBC (Bld) [#/Vol] 4.93 M/UL High 4.0-4.9 [facility] Comment on above: Performed By: #### G L1P #### [address] [address] [place] [address] RDW-SD 40.5 FL Normal 37.0-54.0 [facility] Comment on above: Performed By: #### G L1P #### [address] [address] [place] [address] WBC (Bld) [#/Vol] 12.2 10*3/uL High 4.5-11.0 [facility] Comment on above: Performed By: #### G L1P #### [address] [address] [place] [address] COMPREHENSIVE METABOLIC PANE Tye 11-08-2019 Albumin [Mass/Vol] 4.6 g/dL Normal 3.5-5.0 [facility] Comment on above: Performed By: #### C POLE FRAMER MACHINE #### [address] [address] [place] [address] Albumin/Globulin [Mass ratio] 1.5 {ratio} Normal 1.5-3.0 [facility] Comment on above: Performed By: #### C POLE FRAMER MACHINE #### [address] [address] [place] [address] ALP [Catalytic activity/Vol] 48 U/L Normal 35-125 [facility] Comment on above: Performed By: #### C POLE FRAMER MACHINE #### [address] [address] [place] [address] ALT [Catalytic activity/Vol] 14 U/L Normal 5-40 [facility] Comment on above: Performed By: #### C POLE FRAMER MACHINE #### [facility] [address] [place] [address] Anion gap [Moles/Vol] 15 mmol/L Normal 0-19 [facility] Comment on above: Performed By: #### C POLE FRAMER MACHINE #### [facility] [address] [place] [address] AST [Catalytic activity/Vol] 17 U/L Normal 5-40 [facility] Comment on above: Performed By: #### C POLE FRAMER MACHINE #### [facility] [address] [place] [address] Bilirubin [Mass/Vol] 0.6 mg/dL Normal 0.1-1.2 [facility] Comment on above: Performed By: #### C POLE FRAMER MACHINE #### [facility] [address] [place] [address] Calcium [Mass/Vol] 10.0 mg/dL Normal 8.5-10.4 [facility] Comment on above: Performed By: #### C POLE FRAMER MACHINE #### [facility] [address] [place] [address] Chloride [Moles/Vol] 103 mmol/L Normal 97-107 [facility] Comment on above: Performed By: #### C POLE FRAMER MACHINE #### [facility] [address] [place] [address] CO2 [Moles/Vol] 22 mmol/L Low 24-31 [facility] Comment on above: Performed By: #### C POLE FRAMER MACHINE #### [facility] [address] [place] [address] Creatinine [Mass/Vol] 0.7 mg/dL Normal 0.4-1.6 [facility] Comment on above: Performed By: #### C POLE FRAMER MACHINE #### [facility] [address] [place] [address] GFR/1.73 sq M.predicted MDRD (S/P/Bld) [Vol rate/Area] 107 mL/min/1.73 m2 Normal [facility] Comment on above: Result Comment: GFR ml/min/1.73m2 Stage ----- 90 1 60-89 2 30-59 3 15-29 4 <15 5 For -Americans, multiply EGFR result by 1.210 Calculation not validated for patients under 18 years of age. Performed at [address] [place] [address] Performed By: #### C POLE FRAMER MACHINE #### [address] [address] Globulin (S) [Mass/Vol] 3.1 g/dL Normal 1.9-3.7 [facility] Comment on above: Performed By: #### C POLE FRAMER MACHINE #### [address] [address] Glucose [Mass/Vol] 86 mg/dL Normal 65-99 [facility] Comment on above: Performed By: #### C POLE FRAMER MACHINE #### [address] [address] Potassium [Moles/Vol] 3.8 mmol/L Normal 3.4-5.1 [facility] Comment on above: Performed By: #### C POLE FRAMER MACHINE #### [address] [address] Protein [Mass/Vol] 7.7 g/dL Normal 5.9-7.9 [facility] Comment on above: Performed By: #### C POLE FRAMER MACHINE #### [address] [address] Sodium [Moles/Vol] 140 mmol/L Normal 133-145 [facility] Comment on above: Performed By: #### C POLE FRAMER MACHINE #### [address] [address] Urea nitrogen [Mass/Vol] 12 mg/dL Normal 8-25 [facility] Comment on above: Performed By: #### C POLE FRAMER MACHINE #### [address] [address] Urea nitrogen/Creatinine [Mass ratio] 17.1 RATIO Normal 8-21 [facility] Comment on above: Performed By: #### C POLE FRAMER MACHINE #### [address] [address] GC/CHLAMYDIA BY AMPon 2019 GC/CHLAMYDIA BY AMP [...] perform high complexity testing. Performed at [facility], [address], [address], [address] Comment on above: Performed By: #### G PGCCT #### [place] [facility]. [address], [address] [place] [address] LIPASE PSon 11-08-2019 LIPASE PS 18 U/L Normal 16-63 [facility] Comment on above: Result Comment: Perf ormed at [place] [address] Performed By: #### L IPS #### [place] [address] URINE CULTUREon 11-07-2019 Bacteria identified Cx Nom (U) Specimen source XXX: CLEAN VOIDED MIDSTREAM Service Cmnt XXX-Imp: NONE CC Number Ur: >100,000 CFU/mL Bacteria identified: ESCHERICHIA COLI Performed at [place] [address] : FINAL 11/07/2019 ANTIBIOTIC SUMMER/INTERP ORGANISM: 1 ESCHERICHIA COLI SUMMER SUMMER AUGMENTIN <=8/4 SUSCEPTIBLE AMPICILLIN SULBACTAM <=8/4 SUSCEPTIBLE NITROFURANTOIN <=32 SUSCEPTIBLE TETRACYCLINE <=4 SUSCEPTIBLE CEFAZOLIN <=2 SUSCEPTIBLE GENTAMICIN <=4 SUSCEPTIBLE TRIMETHOPRIM SULFAMETHOXAZOLE <=2/38 SUSCEPTIBLE CIPROFLOXACIN <=1 SUSCEPTIBLE AMPICILLIN <=8 SUSCEPTIBLE LEVOFLOXACIN <=2 SUSCEPTIBLE PIPERACILLIN/TAZOBACTAM <=16 SUSCEPTIBLE MEROPENEM <=1 SUSCEPTIBLE [facility] Comment on above: Performed By: #### C BCD #### [place] [address] HCG QUANTITATIVEon 0 HCG QUANTITATIVE 55.9 MIU/ML Normal [facility] Comment on above: Result Comment: WEEK S [...] 51,793 18 9,649 - 55,271 Performed at [address] [address] Performed By: #### G L1P #### [facility] [address] [address] U Drug Screenon 04-22-2018 U Amph Scr Negative [facility] Comment on above: Performed By: #### 2 [id number] ####G[address] [place] [address] U Yuli Scr Negative [facility] Comment on above: Performed By: #### 2 [id number] ####G[address]ALI[address] [place] [address] U Benzodia Scr Negative [facility] Comment on above: Performed By: #### 2 [id number] ####G[address] [place] [address] U Cannab Scr Negative [facility] Comment on above: Performed By: #### 2 [id number] ####G[address]im[address] [place] [address] U Cocaine Scr Negative [facility] Comment on above: Performed By: #### 2 [id number] ####GAMALI[address] [place] [address] U Opiate Scr Negative [facility] Comment on above: Performed By: #### 2 [id number] ####G[address] [place] [address] U PCP Scr Negative [facility] Comment on above: Performed By: #### 2 [id number] ####[address] [place] [address] ED NOTEon 04-18-2018 ED NOTE HNO ID: [id number] Author: Ramona ChavezRn) GENARO Krishnan Service: Nursing Author Type: Registered Nurse Type: ED Notes Filed: 04/18/2018 11:03 AM Note Text: Pt unable to urinate at this time. Given water [facility] ED NOTE HNO ID: [id number] Author: Ramona ChavezRn) GENARO Krishnan Service: Nursing Author Type: Registered Nurse Type: ED Notes Filed: 04/18/2018 10:56 AM Note Text: Pt ambulated to the for urine specimen. [facility] ED PROV NOTEon 04-18-2018 Protein mass conc HNO ID: [id number]: Misa Bearden ([facility]) DolneyService: Emergency MedicineAuthor Type: Nurse PractitionerType: ED Provider NotesFiled: 04/18/2018 1:54 PMNote Text:ED Provider NotePatient Name: Ramona LozadaRN: [id number] DATE: 04/18/18HistoryPatient presents with:Flu Like SymptomsPatient presents to ED with complaint of productive cough. Initiallystarted about one week ago. Stated that she is having coughing fits.+fever, chills, sinus congestion, cough with sputum. Denies chest pain,palpitations, shortness of breath, abdominal pain. Has been told in thepast that she needs to be tested for asthma but has not every had thetesting.History provided by: PatientLanguage assistant grocery used: NoCoughCough characteristics: ProductiveSputum characteristics: GreenSeverity: ModerateOnset [...] of disposition: stableSIGNATURE: Misa Miramontes APRN.CNPAngela G ([facility]) Wfzewk38/17/18 1354 Normal [facility] XR CHEST 2V FRONTAL/LATon Protein mass [...] WALLIS MD on Apr 18 2018 11:21AM [id number] [facility] Vital Signs Date Time Vital Sign Value Performing Clinician Facility 02-16-2025 08:22-0400 Body mass index (BMI) [Ratio] 26.66 kg/m2 Ana Hilario MD Work Phone: [facility] 02-16-2025 08:22-0400 Body weight 67.13 kg Ana Hilario MD Work Phone: [facility] 02-16-2025 08:22-0400 Diastolic blood pressure 64 mm[Hg] Ana Hilario MD Work Phone: [facility] 02-16-2025 08:22-0400 Systolic blood pressure 102 mm[Hg] Ana Hilario MD Work Phone: [facility] 02-09-2025 10:19-0400 Body mass index (BMI) [Ratio] 26.91 kg/m2 Yumiko Andersen COMMUNICATIONS PROFESSIONAL.CNM Work Phone: [facility] 02-09-2025 10:19-0400 Body weight 67.77 kg Yumiko Andersen COMMUNICATIONS PROFESSIONAL.CNM Work Phone: [facility] 02-09-2025 10:19-0400 Diastolic blood pressure 60 mm[Hg] Yumiko Andersen COMMUNICATIONS PROFESSIONAL.CNM Work Phone: [facility] 02-09-2025 10:19-0400 Systolic blood pressure 108 mm[Hg] Yumiko Andersen COMMUNICATIONS PROFESSIONAL.CNM Work Phone: [facility] 02-02-2025 09:21-0400 Body mass index (BMI) [Ratio] 26.58 kg/m2 Ethel Ruiz COMMUNICATIONS PROFESSIONAL.CNM Work Phone: [facility] 02-02-2025 09:21-0400 Body weight 66.95 kg Ethel Ruiz COMMUNICATIONS PROFESSIONAL.CNM Work Phone: [facility] 02-02-2025 09:21-0400 Diastolic blood pressure 72 mm[Hg] Ethel Ruiz COMMUNICATIONS PROFESSIONAL.CNM Work Phone: [facility] 02-02-2025 09:21-0400 Systolic blood pressure 116 mm[Hg] Ethel Ruiz COMMUNICATIONS PROFESSIONAL.CNM Work Phone: [facility] 01-19-2025 10:18-0400 Body mass index (BMI) [Ratio] 25.61 kg/m2 Ana Hilario MD Work Phone: [facility] 01-19-2025 10:18-0400 Body weight 64.5 kg Ana Hilario MD Work Phone: [facility] 01-19-2025 10:18-0400 Diastolic blood pressure 68 mm[Hg] Ana Hilario MD Work Phone: [facility] 01-19-2025 10:18-0400 Systolic blood pressure 102 mm[Hg] Ana Hilario MD Work Phone: [facility] 12-22-2024 08:02-0400 Body mass index (BMI) [Ratio] 24.89 kg/m2 Yumiko Andersen COMMUNICATIONS PROFESSIONAL.CNM Work Phone: [facility] 12-22-2024 08:02-0400 Body weight 62.69 kg Yumiko Andersen COMMUNICATIONS PROFESSIONAL.CNM Work Phone: [facility] 12-22-2024 08:02-0400 Diastolic blood pressure 60 mm[Hg] Yumiko Andersen COMMUNICATIONS PROFESSIONAL.CNM Work Phone: [facility] 12-22-2024 08:02-0400 Systolic blood pressure 100 mm[Hg] Yumiko Andersen COMMUNICATIONS PROFESSIONAL.CNM Work Phone: [facility] 12-08-2024 08:45-0400 Body mass index (BMI) [Ratio] 24.85 kg/m2 Jenny Huitron APRN.HOSPITAL CLEANER Work Phone: [facility] 12-08-2024 08:45-0400 Body weight 62.6 kg Jenny Haury COMMUNICATIONS PROFESSIONAL.HOSPITAL CLEANER Work Phone: [facility] 12-08-2024 08:45-0400 Diastolic blood pressure 60 mm[Hg] Jenny Haury COMMUNICATIONS PROFESSIONAL.HOSPITAL CLEANER Work Phone: [facility] 12-08-2024 08:45-0400 Systolic blood pressure 100 mm[Hg] Jenny Haury COMMUNICATIONS PROFESSIONAL.HOSPITAL CLEANER Work Phone: [facility] 11-10-2024 08:48-0400 Body mass index (BMI) [Ratio] 23.77 kg/m2 Jenny Haury COMMUNICATIONS PROFESSIONAL.HOSPITAL CLEANER Work Phone: [facility] 11-10-2024 08:48-0400 Body weight 59.88 kg Jenny Haury COMMUNICATIONS PROFESSIONAL.HOSPITAL CLEANER Work Phone: [facility] 11-10-2024 08:48-0400 Diastolic blood pressure 60 mm[Hg] Jenny Haury COMMUNICATIONS PROFESSIONAL.HOSPITAL CLEANER Work Phone: [facility] 11-10-2024 08:48-0400 Systolic blood pressure 100 mm[Hg] Jenny Haury COMMUNICATIONS PROFESSIONAL.HOSPITAL CLEANER Work Phone: [facility] 10-13-2024 11:14-0400 Body mass index (BMI) [Ratio] 22.87 kg/m2 Ethel Ruiz COMMUNICATIONS PROFESSIONAL.CNM Work Phone: [facility] 10-13-2024 11:14-0400 Body weight 57.61 kg Ethel Ruiz COMMUNICATIONS PROFESSIONAL.CNM Work Phone: [facility] 10-13-2024 11:14-0400 Diastolic blood pressure 62 mm[Hg] Ethel Ruiz COMMUNICATIONS PROFESSIONAL.CNM Work Phone: [facility] 10-13-2024 11:14-0400 Systolic blood pressure 108 mm[Hg] Ethel Ruiz COMMUNICATIONS PROFESSIONAL.CNM Work Phone: [facility] 09-20-2024 08:33-0400 Body mass index (BMI) [Ratio] 21.79 kg/m2 Karoline Bautista MD Work Phone: [facility] 09-20-2024 08:33-0400 Body weight 54.88 kg Karoline Bautista MD Work Phone: [facility] 09-20-2024 08:33-0400 Diastolic blood pressure 56 mm[Hg] Karoline Bautista MD Work Phone: [facility] 09-20-2024 08:33-0400 Systolic blood pressure 96 mm[Hg] Karoline Bautista MD Work Phone: [facility] 08-17-2024 14:30-0400 Body mass index (BMI) [Ratio] 21.79 kg/m2 Ethel Ruiz COMMUNICATIONS PROFESSIONAL.CNM Work Phone: [facility] 08-17-2024 14:30-0400 Body weight 54.88 kg Ethel Ruiz COMMUNICATIONS PROFESSIONAL.CNM Work Phone: [facility] 08-17-2024 14:30-0400 Diastolic blood pressure 64 mm[Hg] Ethel Ruiz COMMUNICATIONS PROFESSIONAL.CNM Work Phone: [facility] 08-17-2024 14:30-0400 Systolic blood pressure 110 mm[Hg] Ethel Ruiz COMMUNICATIONS PROFESSIONAL.CNM Work Phone: [facility] 08-17-2024 10:30-0400 Body height 158.7 cm Jeannie Podlogar COMMUNICATIONS PROFESSIONAL.HOSPITAL CLEANER Work Phone: [facility] 08-17-2024 10:30-0400 Body mass index (BMI) [Ratio] 21.18 kg/m2 Jeannie Podlogar COMMUNICATIONS PROFESSIONAL.HOSPITAL CLEANER Work Phone: [facility] 08-17-2024 10:30-0400 Body weight 53.34 kg Jeannie Podlogar COMMUNICATIONS PROFESSIONAL.HOSPITAL CLEANER Work Phone: [facility] 08-17-2024 10:30-0400 Diastolic blood pressure 76 mm[Hg] Jeannie Podlogar COMMUNICATIONS PROFESSIONAL.HOSPITAL CLEANER Work Phone: [facility] 08-17-2024 10:30-0400 Heart rate 91 /min Jeannie Podlogar COMMUNICATIONS PROFESSIONAL.HOSPITAL CLEANER Work Phone: [facility] 08-17-2024 10:30-0400 Respiratory rate 18 /min Jeannie Podlogar COMMUNICATIONS PROFESSIONAL.HOSPITAL CLEANER Work Phone: [facility] 08-17-2024 10:30-0400 SaO2% (BldA) [Mass fraction] 98 % Jeannie Podlogar COMMUNICATIONS PROFESSIONAL.HOSPITAL CLEANER Work Phone: [facility] 08-17-2024 10:30-0400 Systolic blood pressure 98 mm[Hg] Jeannie Podlogar COMMUNICATIONS PROFESSIONAL.HOSPITAL CLEANER Work Phone: [facility] 07-20-2024 08:19-0500 Body mass index (BMI) [Ratio] 21.21 kg/m2 Marielle Jessy COMMUNICATIONS PROFESSIONAL.HOSPITAL CLEANER Work Phone: [facility] 07-20-2024 08:19-0500 Body weight 53.16 kg Marielle Jessy COMMUNICATIONS PROFESSIONAL.HOSPITAL CLEANER Work Phone: [facility] 07-20-2024 08:19-0500 Diastolic blood pressure 56 mm[Hg] Marielle Crescent COMMUNICATIONS PROFESSIONAL.HOSPITAL CLEANER Work Phone: [facility] 07-20-2024 08:19-0500 Systolic blood pressure 98 mm[Hg] Marielle Crescent COMMUNICATIONS PROFESSIONAL.HOSPITAL CLEANER Work Phone: [facility] 03-29-2024 16:58-0400 Body height 160 cm Castro Heart MD Work Phone: [facility] 03-29-2024 16:58-0400 Body mass index (BMI) [Ratio] 20.9 kg/m2 Castro Heart MD Work Phone: [facility] 03-29-2024 16:58-0400 Body weight 53.52 kg Castro Heart MD Work Phone: [facility] 03-29-2024 16:58-0400 Diastolic blood pressure 67 mm[Hg] Castro Heart MD Work Phone: [facility] 03-29-2024 16:58-0400 Heart rate 82 /min Castro Heart MD Work Phone: [facility] 03-29-2024 16:58-0400 Systolic blood pressure 100 mm[Hg] Castro Heart MD Work Phone: [facility] 02-13-2024 08:23-0400 Body height 158.3 cm Phillip Castro MD Work Phone: [facility] 02-13-2024 08:23-0400 Body mass index (BMI) [Ratio] 21.72 kg/m2 Phillip Castro MD Work Phone: [facility] 02-13-2024 08:23-0400 Body weight 54.43 kg Phillip Castro MD Work Phone: [facility] 02-13-2024 08:23-0400 Diastolic blood pressure 64 mm[Hg] Phillip Castro MD Work Phone: [facility] 02-13-2024 08:23-0400 Systolic blood pressure 112 mm[Hg] Phillip Castro MD Work Phone: [facility] 01-02-2023 14:54-0400 Body weight 55.79 kg Phillip Castro MD Work Phone: [facility] 01-02-2023 14:54-0400 Diastolic blood pressure 70 mm[Hg] Phillip Castro MD Work Phone: [facility] 01-02-2023 14:54-0400 Systolic blood pressure 112 mm[Hg] Phillip Castro MD Work Phone: [facility] 12-16-2022 14:42-0400 Body weight 64.41 kg Crystal Hurtado MD Work Phone: [facility] 12-16-2022 14:42-0400 Diastolic blood pressure 63 mm[Hg] Crystal Hurtado MD Work Phone: [facility] 12-16-2022 14:42-0400 Systolic blood pressure 98 mm[Hg] Crystal Hurtado MD Work Phone: [facility] 12-13-2022 10:02-0400 Body weight 63.96 kg Crystal Hurtado MD Work Phone: [facility] 12-13-2022 10:02-0400 Diastolic blood pressure 68 mm[Hg] Crystal Hurtado MD Work Phone: [facility] 12-13-2022 10:02-0400 Systolic blood pressure 108 mm[Hg] Crystal Hurtado MD Work Phone: [facility] 12-09-2022 10:04-0400 Body weight 64.68 kg Karoline Bautista MD Work Phone: [facility] 12-09-2022 10:04-0400 Diastolic blood pressure 62 mm[Hg] Karoline Bautista MD Work Phone: [facility] 12-09-2022 10:04-0400 Systolic blood pressure 118 mm[Hg] Karoline Bautista MD Work Phone: [facility] 11-25-2022 11:07-0400 Body weight 63.5 kg Ethel Ruiz COMMUNICATIONS PROFESSIONAL.CNM Work Phone: [facility] 11-25-2022 11:07-0400 Diastolic blood pressure 60 mm[Hg] Ethel Ruiz COMMUNICATIONS PROFESSIONAL.CNM Work Phone: [facility] 11-25-2022 11:07-0400 Systolic blood pressure 100 mm[Hg] Ethel Ruiz COMMUNICATIONS PROFESSIONAL.CNM Work Phone: [facility] 11-19-2022 08:12-0400 Body weight 61.6 kg Ethel Ruiz COMMUNICATIONS PROFESSIONAL.CNM Work Phone: [facility] 11-19-2022 08:12-0400 Diastolic blood pressure 62 mm[Hg] Ethel Ruiz COMMUNICATIONS PROFESSIONAL.CNM Work Phone: [facility] 11-19-2022 08:12-0400 Systolic blood pressure 98 mm[Hg] Ethel Ruiz CNM Work Phone: [facility] 11-04-2022 10:39-0400 Body weight 61.51 kg Phillip Castro MD Work Phone: [facility] 11-04-2022 10:39-0400 Diastolic blood pressure 60 mm[Hg] Phillip Castro MD Work Phone: [facility] 11-04-2022 10:39-0400 Systolic blood pressure 100 mm[Hg] Phillip Castro MD Work Phone: [facility] 10-03-2022 14:44-0400 Body weight 59.88 kg Brijesh Biswas MD Work Phone: [facility] 10-03-2022 14:44-0400 Diastolic blood pressure 62 mm[Hg] Brijesh Biswas MD Work Phone: [facility] 10-03-2022 14:44-0400 Systolic blood pressure 92 mm[Hg] Brijesh Biswas MD Work Phone: [facility] 09-20-2022 10:59-0400 Body weight 58.51 kg Brijesh Biswas MD Work Phone: [facility] 09-20-2022 10:59-0400 Diastolic blood pressure 58 mm[Hg] Brijesh Biswas MD Work Phone: [facility] 09-20-2022 10:59-0400 Systolic blood pressure 94 mm[Hg] Brijesh Biswas MD Work Phone: [facility] 09-05-2022 09:52-0400 Body weight 56.84 kg Karoline Bautista MD Work Phone: [facility] 09-05-2022 09:52-0400 Diastolic blood pressure 60 mm[Hg] Karoline Bautista MD Work Phone: [facility] 09-05-2022 09:52-0400 Systolic blood pressure 100 mm[Hg] Karoline Bautista MD Work Phone: [facility] 08-28-2022 20:30-0400 Diastolic blood pressure 78 mm[Hg] [facility] 08-28-2022 20:30-0400 Heart rate 67 /min [facility] 08-28-2022 20:30-0400 Respiratory rate 17 /min [facility] 08-28-2022 20:30-0400 SaO2% (BldA) [Mass fraction] 100 % [facility] 08-28-2022 20:30-0400 Systolic blood pressure 110 mm[Hg] [facility] 08-28-2022 17:25-0400 Body height 160.02 cm [facility] 08-28-2022 17:25-0400 Body mass index (BMI) [Ratio] 21.6 kg/m2 [facility] 08-28-2022 17:25-0400 Body temperature 97.5 [degF] [facility] 08-28-2022 17:25-0400 Body weight 55.33 kg [facility] 06-07-2022 08:19-0500 Body weight 50.89 kg Brijesh Biswas MD Work Phone: [facility] 06-07-2022 08:19-0500 Diastolic blood pressure 60 mm[Hg] Brijesh Biswas MD Work Phone: [facility] 06-07-2022 08:19-0500 Systolic blood pressure 92 mm[Hg] Brijesh Biswas MD Work Phone: [facility] 05-10-2022 11:40-0500 Body height 160 cm Phillip Castro MD Work Phone: [facility] 05-10-2022 11:40-0500 Body weight 50.62 kg Phillip Castro MD Work Phone: [facility] 05-10-2022 11:40-0500 Diastolic blood pressure 60 mm[Hg] Phillip Castro MD Work Phone: [facility] 05-10-2022 11:40-0500 Systolic blood pressure 90 mm[Hg] Phillip Castro MD Work Phone: [facility] 04-01-2022 09:25-0400 Body height 160 cm Phillip Castro MD Work Phone: [facility] 04-01-2022 09:25-0400 Body weight 52.8 kg Phillip Castro MD Work Phone: [facility] 04-01-2022 09:25-0400 Diastolic blood pressure 54 mm[Hg] Phillip Castro MD Work Phone: [facility] 04-01-2022 09:25-0400 Systolic blood pressure 82 mm[Hg] Phillip Castro MD Work Phone: [facility] 08-03-2021 09:11-0500 Body mass index (BMI) [Ratio] 21.26 kg/m2 Frida C Ray Work Phone: [facility] Work Phone: 08-03-2021 09:11-0500 Body surface area Derived from formula 1.56 m2 Frida C Ray Work Phone: [facility] Work Phone: 08-03-2021 09:11-0500 Body weight 54.43 kg Frida C Ray Work Phone: [facility] Work Phone: 08-03-2021 09:11-0500 Diastolic blood pressure 70 mm[Hg] Frida C Ray Work Phone: [facility] Work Phone: 08-03-2021 09:11-0500 Heart rate 72 /min Frida C Ray Work Phone: [facility] Work Phone: 08-03-2021 09:11-0500 SaO2% (BldA) [Mass fraction] 98 % Frida C Ray Work Phone: [facility] Work Phone: 08-03-2021 09:11-0500 Systolic blood pressure 108 mm[Hg] Frida C Ray Work Phone: [facility] Work Phone: 03-07-2021 15:24-0400 Body height 160.02 cm Frida C Ray Work Phone: [facility] Work Phone: 03-07-2021 15:24-0400 Body mass index (BMI) [Ratio] 21.47 kg/m2 Frida C Ray Work Phone: [facility] Work Phone: 03-07-2021 15:24-0400 Body surface area Derived from formula 1.56 m2 Frida C Ray Work Phone: [facility] Work Phone: 03-07-2021 15:24-0400 Body temperature 97.1 [degF] Frida C Ray Work Phone: [facility] Work Phone: 03-07-2021 15:24-0400 Body weight 54.98 kg Frida C Ray Work Phone: [facility] Work Phone: 03-07-2021 15:24-0400 Diastolic blood pressure 60 mm[Hg] Frida C Ray Work Phone: [facility] Work Phone: 03-07-2021 15:24-0400 Heart rate 70 /min Frida C Ray Work Phone: [facility] Work Phone: 03-07-2021 15:24-0400 Respiratory rate 16 /min Frida C Ray Work Phone: [facility] Work Phone: 03-07-2021 15:24-0400 SaO2% (BldA) [Mass fraction] 97 % Frida C Ray Work Phone: [facility] Work Phone: 03-07-2021 15:24-0400 Systolic blood pressure 104 mm[Hg] Frida Lieberman Work Phone: [facility] Work Phone: 02-12-2021 17:30-0400 Body height 160.02 cm Ana Luigi Boateng Work Phone: [facility] Work Phone: 02-12-2021 17:30-0400 Body mass index (BMI) [Ratio] 21.26 kg/m2 Ana Luigi Boateng Work Phone: [facility] Work Phone: 02-12-2021 17:30-0400 Body surface area Derived from formula 1.56 m2 Ana Boateng Work Phone: [facility] Work Phone: 02-12-2021 17:30-0400 Body temperature 96.9 [degF] Ana Luigi Boateng Work Phone: [facility] Work Phone: 02-12-2021 17:30-0400 Body weight 54.43 kg Ana Luigi Boateng Work Phone: [facility] Work Phone: 02-12-2021 17:30-0400 Diastolic blood pressure 60 mm[Hg] Ana Boateng Work Phone: [facility] Work Phone: 02-12-2021 17:30-0400 Heart rate 75 /min Ana Boateng Work Phone: [facility] Work Phone: 02-12-2021 17:30-0400 Respiratory rate 18 /min Ana Boateng Work Phone: [facility] Work Phone: 02-12-2021 17:30-0400 SaO2% (BldA) [Mass fraction] 97 % Ana Boateng Work Phone: [facility] Work Phone: 02-12-2021 17:30-0400 Systolic blood pressure 130 mm[Hg] Ana Boateng Work Phone: [facility] Work Phone: 10-25-2020 11:53-0400 Body height 160.02 cm Ana Boaetng Work Phone: [facility] Work Phone: 10-25-2020 11:53-0400 Body mass index (BMI) [Ratio] 20.55 kg/m2 Ana Boateng Work Phone: [facility] Work Phone: 10-25-2020 11:53-0400 Body surface area Derived from formula 1.53 m2 Ana Boateng Work Phone: [facility] Work Phone: 10-25-2020 11:53-0400 Body weight 52.62 kg nAa Boateng Work Phone: [facility] Work Phone: 10-25-2020 11:53-0400 Diastolic blood pressure 54 mm[Hg] Ana Boateng Work Phone: [facility] Work Phone: 10-25-2020 11:53-0400 Heart rate 79 /min Ana Boateng Work Phone: [facility] Work Phone: 10-25-2020 11:53-0400 SaO2% (BldA) [Mass fraction] 97 % Ana Boateng Work Phone: [facility] Work Phone: 10-25-2020 11:53-0400 Systolic blood pressure 90 mm[Hg] Ana Boateng Work Phone: [facility] Work Phone: 06-13-2020 08:07-0500 BMI (Body Mass Index) 24.87 kg/m2 Bessy Tan [facility] 06-13-2020 08:07-0500 Body weight 61.69 [facility]-11[facility]2020 01:11-0500 BMI (Body Mass Index) 24.87 kg/m2 [facility] 06-11-2020 01:11-0500 Body weight 61.69 kg [facility] Encounters Encounter Date Encounter Type Care Provider Facility Start: 02-16-2025 End: 02-16-2025 Patient encounter procedure Ana Hilario MD Work Phone: OB/Gynecology Comment on above: Encounter for superv ision of other normal in third trimester (HCC) (Primary Dx); History of hypothyroidism; 38 weeks gestation of (HCC) Start: 02-16-2025 End: 02-16-2025 ambulatory ALFREDO DURAN Facility:[facility] Start: 02-10-2025 End: 02-10-2025 ambulatory [facility] Start: 02-10-2025 End: 02-10-2025 Patient encounter procedure [facility] Comment on above: Population Health Na vigation Outreach ( to PCP/OB/) Start: 02-09-2025 End: 02-09-2025 Patient encounter procedure Yumiko Andersen APRN.CNM Work Phone: OB/Gynecology Comment on above: 37 weeks gestation o f (HCC) (Primary Dx); History of hypothyroidism; Encounter for supervision of other normal in third trimester (HCC) Start: 02-09-2025 End: 02-09-2025 ambulatory ALFREDO DURAN Facility:[facility] Start: 02-02-2025 End: 02-02-2025 Patient encounter procedure Ethel uRiz APRN.CNM Work Phone: OB/Gynecology Comment on above: Encounter for superv ision of other normal in third trimester (HCC) (Primary Dx); 36 weeks gestation of (HCC); History of hypothyroidism Start: 02-02-2025 End: 02-02-2025 ambulatory ALFREDO DURAN Facility:[facility] Start: 01-19-2025 End: 01-19-2025 Patient encounter procedure Ana Hilaroi MD Work Phone: OB/Gynecology Comment on above: 34 weeks gestation o f (HCC) (Primary Dx); Encounter for supervision of other normal in third trimester (HCC); History of hypothyroidism Start: 01-19-2025 End: 01-19-2025 ambulatory ALFREDO DURAN Facility:[facility] Start: 01-05-2025 End: 01-05-2025 ambulatory KAROLINE BAUTISTA Facility:[facility] Start: 12-22-2024 End: 12-22-2024 Patient encounter procedure Yumiko Andersen APRN.CNM Work Phone: OB/Gynecology Comment on above: 30 weeks gestation o f (HCC) (Primary Dx); Encounter for supervision of other normal in third trimester ([facility]); Bilateral hip pain Start: 12-22-2024 End: 12-22-2024 ambulatory ALFREDO DURAN Facility:[facility] Start: 12-13-2024 End: 02-12-2025 Follow-up encounter Jenny Huitron APRN.CNP Work Phone: OB/Gynecology Start: 12-08-2024 End: 12-08-2024 Patient encounter procedure Jenny Huitron APRN.CNP Work Phone: OB/Gynecology Comment on above: Encounter for superv ision of other normal in second trimester (HCC) (Primary Dx); 28 weeks gestation of (HCC); History of hypothyroidism; Encounter for supervision of normal intrauterine in multigravida, antepartum ([facility]) Start: 12-08-2024 End: 12-08-2024 ambulatory ALFREDO DURAN Facility:[facility] Start: 11-30-2024 End: 12-06-2024 ambulatory Jenny Huitron [...] Start: 11-10-2024 End: 11-10-2024 ambulatory ALFREDO DURAN Facility:[facility] Start: 10-13-2024 End: 10-13-2024 Patient encounter procedure Ethel Ruiz APRN.CNM Work Phone: OB/Gynecology Comment on above: Encounter for superv ision of other normal in second trimester (HCC) (Primary Dx); 20 weeks gestation of (HCC); History of hypothyroidism; History of anxiety Encounter for anatomic survey (HCC) (Primary Dx); 21 weeks gestation of (HCC) Start: 10-13-2024 End: 10-13-2024 ambulatory ALFREDO DURAN Facility:[facility] Start: 09-27-2024 End: 09-28-2024 Telephone encounter Phillip Castro MD Work Phone: OB/Gynecology Comment on above: breast pump Start: 09-20-2024 End: 09-20-2024 Patient encounter procedure Karoline Bautista MD Work Phone: OB/Gynecology Comment on above: Encounter for superv ision of normal intrauterine in multigravida, antepartum (HCC) (Primary Dx) Start: 09-20-2024 End: 09-20-2024 ambulatory ALFREDO DURAN Facility:[facility] Start: 08-17-2024 End: 08-17-2024 ambulatory ALFREDO DURAN Facility:[facility] Start: 08-17-2024 End: 08-17-2024 Patient encounter procedure Ethel Ruiz APRN.CNM Work Phone: OB/Gynecology Comment on above: Encounter for superv ision of other normal in second trimester (Primary Dx); 12 weeks gestation of ; History of anxiety; History of hypothyroidism; related nausea, antepartum Start: 08-17-2024 End: 08-17-2024 ambulatory ALFREDO DURAN Facility:[facility] Start: 08-17-2024 Encounter for genera l adult medical examination without abnormal findings JEANNIE TAYLOR [facility] Start: 08-17-2024 End: 08-17-2024 Patient encounter procedure Jeannie Taylor COMMUNICATIONS PROFESSIONALJACOB Work Phone: [facility] Comment on above: Encounter for medica l examination to establish care (Primary Dx) Encounter for antena steve screening for malformation using ultrasound (Primary Dx); 12 weeks gestation of Start: 08-17-2024 End: 08-17-2024 Patient encounter status Jeannie Taylor APRN.CNP Work Phone: [facility] Work Phone: Start: 07-20-2024 End: 09-19-2024 Follow-up encounter Marielle Jiménez APRN.CNP Work Phone: OB/Gynecology Start: 07-20-2024 End: 07-20-2024 ambulatory ANA BOATENG Facility:[facility] Start: 07-20-2024 End: 07-20-2024 Patient encounter procedure Marielle Jiménez APRN.CNP Work Phone: OB/Gynecology Comment on above: with uncer tain dates, antepartum (Primary Dx); 8 weeks gestation of ; Screen for STD (sexually transmitted disease); Screening for cervical cancer; Encounter for supervision of normal intrauterine in multigravida, antepartum; Hyperemesis of Start: 07-17-2024 End: 07-17-2024 Emergency department patient visit Maxim Francisco Facility:[facility] Start: 07-15-2024 End: 07-15-2024 ambulatory Ethel Ruzi APRN.CNM Work Phone: OB/Gynecology Comment on above: [...] 20 minutes Castro Heart MD Work Phone: [facility] Internal Medicine Comment on above: Impacted cerumen of left ear (Primary Dx) Start: 03-29-2024 End: 03-29-2024 [facility] Start: 02-13-2024 End: 02-13-2024 Patient encounter procedure Phillip Castro MD Work Phone: OB/Gynecology Comment on above: Encounter for gyneco logical examination (general) (routine) without abnormal findings (Primary Dx) Start: 02-13-2024 End: 02-13-2024 Patient encounter status Phillip Castro MD Work Phone: [facility] Start: 01-02-2023 End: 01-02-2023 Patient encounter procedure [...] 08-28-2022 End: 08-28-2022 Emergency department patient visit [facility] Start: 08-28-2022 Telephone encounter Crystal Hurtado [...] evaluation of patient and report Nurse Pnob [facility] Work Phone: OB/Gynecology Comment on above: [...] OB/Gynecology Comment on above: Received Outside [facility] Start: 04-01-2022 End: 04-01-2022 Patient encounter procedure Phillip Castro MD Work Phone: OB/Gynecology Comment on above: Encounter for gyneco logical examination without abnormal finding (Primary Dx); Encounter for screening for malignant neoplasm of cervix Start: 04-01-2022 End: 04-01-2022 Patient encounter status Phillip Castro MD Work Phone: OB/Gynecology Start: 11-30-2021 Postop follow up vis it related to original px No PCP None -[facility] Work Phone: Start: 11-28-2021 NPV, Provider: Ramona Morse, Status: Pen, Time: 7:40 AM No PCP None [facility] Work Phone: Start: 11-26-2021 Chart Update No PCP None [facility] Work Phone: Start: 11-07-2021 Chart Update No PCP None [facility] Work Phone: Start: 11-06-2021 Patient encounter procedure No PCP None -[facility] Work Phone: Start: 10-26-2021 Chart Update Frida C Ray Work Phone: [facility] Work Phone: Start: 09-27-2021 Rx Change Frida C Ray Work Phone: [facility] Work Phone: Start: 08-24-2021 Rx Renewal Frida C Ray Work Phone: [facility] Work Phone: Start: 08-03-2021 Office consultation new/estab patient 60 min Frida C Ray Work Phone: [facility] Work Phone: Start: 07-27-2021 NPV, Provider: Alfredo Bowden, Status: Pen, Time: 8:40 AM Frida C Ray Work Phone: [facility] Work Phone: Start: 07-18-2021 AUDIT Frida C Ray Work Phone: [facility] Work Phone: Start: 03-07-2021 Current tobacco non- user cad cap copd pv dm Frida C Ray Work Phone: [facility] Work Phone: Start: 03-07-2021 Office outpatient vi sit 15 minutes Frida C Ray Work Phone: [facility] Work Phone: Start: 03-01-2021 Chart Update Frida C Ray Work Phone: [facility] Work Phone: Start: 02-15-2021 Chart Update Ana alfaro Work Phone: [facility] Work Phone: Start: 02-12-2021 Current tobacco non- user cad cap copd pv dm Ana Boateng Work Phone: [facility] Work Phone: Start: 02-12-2021 Office outpatient vi sit 25 minutes Frida C Ray Work Phone: [facility] Work Phone: Start: 10-25-2020 Current tobacco non- user cad cap copd pv dm Ana Boateng Work Phone: [facility] Work Phone: Start: 04-22-2018 End: 04-23-2018 Patient encounter procedure PAULETTE BIGGS Facility:[facility] Start: 04-22-2018 End: 04-23-2018 Patient encounter procedure PAULETTE BIGGS Facility:[facility] Start: 04-18-2018 End: 04-18-2018 Emergency department patient visit [facility] Start: 08-29-2017 End: 08-30-2017 Patient encounter procedure Kalie Sylvester Facility:[facility] Start: 06-19-2017 End: 06-20-2017 Patient encounter procedure PAULETTE BIGGS Facility:[facility] Bessy Tan S Procedures Date Procedure Procedure Detail Performing Clinician Start: 02-16-2025 Urnls dip stick/tabl et rgnt non-auto w/o micrscp Karoline Bautista MD Work Phone: Start: 02-09-2025 Urnls dip stick/tabl et rgnt non-auto w/o micrscp Yumiko Andersen COMMUNICATIONS PROFESSIONAL.CNM Work Phone: Start: 02-02-2025 Urnls dip stick/tabl et rgnt non-auto w/o micrscp Ethel Ruiz COMMUNICATIONS PROFESSIONAL.CNM Work Phone: Start: 01-19-2025 Urnls dip stick/tabl et rgnt non-auto w/o micrscp Ana Hilario MD Work Phone: Start: 10-13-2024 Us preg uterus after 1st trimest 1/ gestation Marielle Crescent COMMUNICATIONS PROFESSIONAL.HOSPITAL CLEANER Work Phone: Start: 08-17-2024 Antibody screen NANNETTE DURAN Comment on above: Order Comment: Speci men Type: BLOOD SPECIMEN Ordering Facility: [facility] Address: [address] [place] [address] Performed By: #### T SPN #### [facility] CLIA [id number] [address] [place], [place] [address] [address] [place] Start: 08-17-2024 Us preg uterus after 1st trimest 1/1st gestation Marielle Jessy COMMUNICATIONS PROFESSIONAL.HOSPITAL CLEANER Work Phone: Start: 07-20-2024 Us uterus limited 1/> fetuses Marielle Crescent COMMUNICATIONS PROFESSIONAL.HOSPITAL CLEANER Work Phone: Start: 12-16-2022 URINE OB DIP B/O Crystal Hurtado MD Work Phone: Start: 12-13-2022 URINE OB DIP B/O Crystal Hurtado MD Work Phone: Start: 12-09-2022 URINE OB DIP B/O Melvin Bautista MD Work Phone: Start: 11-25-2022 URINE OB DIP B/O Césarssic antoni Ruiz COMMUNICATIONS PROFESSIONAL.CNM Work Phone: Start: 11-19-2022 URINE OB DIP B/O Jessic a Ruiz COMMUNICATIONS PROFESSIONAL.CNM Work Phone: Start: 11-04-2022 URINE OB DIP [...] f 2) Zoster Vaccines (1 of 2) [facility] Start: 09-20-2032 Urine microalbumin profile [facility] Start: 07-20-2029 Screening for malign ant neoplasm of cervix Cervical Cancer Screening [facility] Start: 04-01-2027 HPV TESTING HPV TESTING [facility] Start: 04-01-2027 PAP TESTING PAP TESTING [facility] Start: 02-14-2026 Lipid panel Lipid Panel [facility] Start: 08-17-2025 Covid-19 Vaccine () Covid-19 Vaccine () [facility] Comment on above: Postponed from 01/31 (Declined at this time) Start: 08-17-2025 End: 08-17-2025 Patient encounter procedure 08/17/2025 8:40 AM EDT Office Visit [facility] [address] [place] [address] PodJeannie bashir APRN.HOSPITAL CLEANER [address] [place] [address] Yearly Exam [facility] Comment on above: Yearly Exam Start: 04-01-2025 PAP TESTING PAP TESTING [facility] Start: 04-01-2025 Screening for malign ant neoplasm of cervix [facility] Start: 02-23-2025 End: 02-23-2025 Patient encounter procedure 02/23/2025 8:10 AM EDT Routine Office Visit OB/Gynecology [address] [place] [address] Ana Hilario MD [address] [place] [address] OB OB/Gynecology Comment on above: OB Start: 02-16-2025 End: 02-16-2025 Patient encounter procedure 02/16/2025 8:30 AM EDT Routine Office Visit OB/Gynecology [address] [place] [address] Karoline Bautista MD [address] [place] [address] OB OB/Gynecology Comment on above: OB Start: 02-14-2025 End: 02-14-2025 Patient encounter procedure 02/14/2025 8:40 AM EDT Office Visit OB/Gynecology [address] [place] [address] Phillip Castro MD [address] [place] [address] Annual OB/Gynecology Comment on above: Annual Start: 02-09-2025 End: 02-09-2025 Patient encounter procedure 02/09/2025 10:15 AM EDT Routine Office Visit OB/Gynecology [address] [place] [address] Yumiko Andersen APRN.CNM [address] [place] [address] (Fax) OB OB/Gynecology Comment on above: OB Start: 02-02-2025 End: 02-02-2025 Patient encounter procedure 02/02/2025 9:30 AM EDT Office Visit OB/Gynecology [address] [place] [address] Ethel Ruiz APRN.CNM [address] [place] [address] (Fax) OB OB/Gynecology Comment on above: OB Start: 01-31-2025 Influenza vaccination [place] Start: 01-31-2025 RSV Vaccine (1 - Ris k 1-dose series) RSV Vaccine (1 - Risk 1-dose series) [facility] Start: 01-05-2025 End: 01-05-2025 Patient encounter procedure 01/05/2025 8:30 AM EDT Routine Office Visit OB/Gynecology [address] [place] [address] Karoline Bautista MD [address] [place] [address] (Fax) OB OB/Gynecology Comment on above: OB Start: 12-22-2024 End: 12-22-2024 Patient encounter procedure 12/22/2024 8:00 AM EDT Routine Office Visit OB/Gynecology [address] [place] [address] Yumiko Andersen APRN.CNM [address] [place] [address] OB OB/Gynecology Comment on above: OB Start: 12-08-2024 End: 12-08-2024 ambulatory 12/08/2024 9:30 AM EDT Results Only Heather Schneider [facility] [address] [place] [address] [facility] Star[facility] Start: 12-08-2024 End: 12-08-2024 Patient encounter procedure OB/Gynecology Comment on above: OB OB- FMLA paperwork i n chart prep binder Start: 11-29-2024 Influenza vaccination Influenza Vacc ine (#1) [facility] Comment on above: Postponed from 01/31 (Declined at this time) Start: 11-10-2024 End: 02-09-2025 ANEMIA REFLEX PANEL ANEMIA REFLEX PANEL Lab Routine Encounter for supervision of other normal in second trimester (HCC) 24 weeks gestation of ([facility]) Expected: 11/10/2024, Expires: 02/09/2025 [facility] Comment on above: Expected: 11/10/2024 , Expires: 02/09/2025 Start: 11-10-2024 End: 11-10-2025 GESTATIONAL GLUCOSE SCREEN, 1-HOUR, 50 GRAM, NON-FASTING GESTATIONAL GLUCOSE SCREEN, 1-HOUR, 50 GRAM, NON-FASTING Lab Routine Encounter for supervision of other normal in second trimester (HCC) 24 weeks gestation of ([facility]) Screening for diabetes mellitus Expected: 11/10/2024, Expires: 11/10/2025 [facility] Work Phone: Comment on above: Expected: 11/10/2024 , Expires: 11/10/2025 Start: 11-10-2024 End: 11-10-2025 SYPHILIS TREPONEMAL W/REFLEX SYPHILIS TREPONEMAL W/REFLEX Lab Routine Encounter for supervision of other normal in second trimester (HCC) 24 weeks gestation of ([facility]) Expected: 11/10/2024, Expires: 11/10/2025 [facility] Comment on above: Expected: 11/10/2024 , Expires: 11/10/2025 Start: 11-10-2024 End: 02-09-2025 Thyrotropin [Units/volume] in Serum or Plasma THYROID STIMULATING HORMONE Lab Routine History of hypothyroidism Expected: 11/10/2024, Expires: 02/09/2025 [facility] Comment on above: Expected: 11/10/2024 , Expires: 02/09/2025 Start: 11-10-2024 End: 02-09-2025 Thyroxine (T4) free [Mass/volume] in Serum or Plasma T4 FREE/FREE THYROXINE Lab Routine History of hypothyroidism Expected: 11/10/2024, Expires: 02/09/2025 [facility] Comment on above: Expected: 11/10/2024 , Expires: 02/09/2025 Start: 11-10-2024 End: 11-10-2024 Patient encounter procedure 11/10/2024 9:00 AM EDT Routine Office Visit OB/Gynecology [address] [place] [address] Jenny Huitron APRN.HOSPITAL CLEANER [address] [place] [address] OB OB/Gynecology Comment on above: OB Start: 10-13-2024 End: 10-13-2024 Patient encounter procedure Maternal Medicine Comment on above: Anatomy OB Start: 10-12-2024 End: 10-12-2024 Patient encounter procedure Maternal Medicine Comment on above: Anatomy Anatomy/OB Start: 09-20-2024 End: 09-20-2024 Patient encounter procedure 09/20/2024 8:30 AM EDT Routine Office Visit OB/Gynecology [address] [place] [address] Karoline Bautista MD [address] [place] [address] OB OB/Gynecology Comment on above: OB Start: 09-14-2024 End: 09-14-2024 Patient encounter procedure 09/14/2024 8:30 AM EDT Routine Office Visit OB/Gynecology [address] [place] [address] Karoline Bautista MD [address] [place] [address] OB OB/Gynecology Comment on above: OB Start: 08-17-2024 End: 08-17-2024 Patient encounter procedure 08/17/2024 2:30 PM EDT Routine Office Visit OB/Gynecology [address] [place] [address] Ethel Ruiz APRN.CN [address] [place] [address] Nuchal/OBLmp05/27/24 OB/Gynecology Comment on above: Nuchal/OBLmp05/27/24 Start: 08-17-2024 End: 08-17-2024 Patient encounter procedure [facility] Comment on above: est care PHYSICAL Nuchal Start: 08-09-2024 End: 08-09-2024 Patient encounter procedure 08/09/2024 1:10 PM EDT Routine Office Visit OB/Gynecology [address] [place] [address] Phillip Castro MD [address] [place] [address] New OB Lmp107/28/23 OB/Gynecology Comment on above: New OB Lmp107/28/23 Start: 07-20-2024 End: 10-19-2024 ANEMIA REFLEX PANEL ANEMIA REFLEX PANEL Lab Routine with uncertain dates, antepartum 8 weeks gestation of Screen for STD (sexually transmitted disease) Expected: 07/20/2024, Expires: 10/19/2024 [facility] Work Phone: Comment on above: Expected: 07/20/2024 , Expires: 10/19/2024 Start: 07-20-2024 End: 10-19-2024 Hemoglobin A1c in Blood HEMOGLOBIN A1C Lab Routine with uncertain dates, antepartum 8 weeks gestation of Screen for STD (sexually transmitted disease) Expected: 07/20/2024, Expires: 10/19/2024 [facility] Comment on above: Expected: 07/20/2024 , Expires: 10/19/2024 Start: 07-20-2024 End: 10-19-2024 Hepatitis B virus surface Ag [Presence] in Serum HEPATITIS B SURFACE ANTIGEN Lab Routine with uncertain dates, antepartum 8 weeks gestation of Screen for STD (sexually transmitted disease) Expected: 07/20/2024, Expires: 10/19/2024 [facility] Comment on above: Expected: 07/20/2024 , Expires: 10/19/2024 Start: 07-20-2024 End: 10-19-2024 Hepatitis C virus Ab [Presence] in Serum HEPATITIS C ANTIBODY IA WITH CONFIRMATION Lab Routine with uncertain dates, antepartum 8 weeks gestation of Screen for STD (sexually transmitted disease) Expected: 07/20/2024, Expires: 10/19/2024 [facility] Comment on above: Expected: 07/20/2024 , Expires: 10/19/2024 Start: 07-20-2024 End: 10-19-2024 HIV 1+2 Ab [Presence] in Serum or Plasma by Immunoassay HIV 1/2 COMBO WITH REFLEX TO DIFFERENTIATION Lab Routine with uncertain dates, antepartum 8 weeks gestation of Screen for STD (sexually transmitted disease) Expected: 07/20/2024, Expires: 10/19/2024 [facility] Comment on above: Expected: 07/20/2024 , Expires: 10/19/2024 Start: 07-20-2024 End: 07-20-2025 OBSTETRIC ULTRASOUND WHI OBSTETRIC ULTRASOUND WHI Anc Imaging Routine with uncertain dates, antepartum 8 weeks gestation of Screen for STD (sexually transmitted disease) Expected: 07/20/2024, Expires: 07/20/2025 [facility] Comment on above: Expected: 07/20/2024 , Expires: 07/20/2025 Start: 07-20-2024 End: 10-19-2024 RUBELLA IGG ANTIBODY RUBELLA IGG ANTIBODY Lab Routine with uncertain dates, antepartum 8 weeks gestation of Screen for STD (sexually transmitted disease) Expected: 07/20/2024, Expires: 10/19/2024 [facility] Comment on above: Expected: 07/20/2024 , Expires: 10/19/2024 Start: 07-20-2024 End: 10-19-2024 SYPHILIS TREPONEMAL W/REFLEX SYPHILIS TREPONEMAL W/REFLEX Lab Routine with uncertain dates, antepartum 8 weeks gestation of Screen for STD (sexually transmitted disease) Expected: 07/20/2024, Expires: 10/19/2024 [facility] Comment on above: Expected: 07/20/2024 , Expires: 10/19/2024 Start: 07-20-2024 End: 10-19-2024 Thyrotropin [Units/volume] in Serum or Plasma THYROID STIMULATING HORMONE Lab Routine 8 weeks gestation of Expected: 07/20/2024, Expires: 10/19/2024 [facility] Comment on above: Expected: 07/20/2024 , Expires: 10/19/2024 Start: 07-20-2024 End: 10-19-2024 TYPE + SCREEN TYPE + SCREEN Blood Bank Routine with uncertain dates, antepartum 8 weeks gestation of Screen for STD (sexually transmitted disease) Expected: 07/20/2024, Expires: 10/19/2024 [facility] Comment on above: Expected: 07/20/2024 , Expires: 10/19/2024 Start: 07-20-2024 End: 07-20-2024 Patient encounter procedure 07/20/2024 8:15 AM EST Initial Office Visit OB/Gynecology [address] [place] [address] Marielle Jiménez APRN.HOSPITAL CLEANER [address] [place] [address] New OB [facility]07/28/23 OB/Gynecology Comment on above: New OB Lmp107/28/23 Start: 07-12-2024 End: 10-11-2024 Thyrotropin [Units/volume] in Serum or Plasma [facility] Work Phone: Comment on above: Expected: 07/12/2024 , Expires: 10/11/2024 Start: 07-12-2024 End: 10-11-2024 Thyroxine (T4) free [Mass/volume] in Serum or Plasma [facility] Comment on above: Expected: 07/12/2024 , Expires: 10/11/2024 Start: 02-01-2024 Covid-19 Vaccine ( season) Covid-19 Vaccine () [facility] Start: 02-01-2024 COVID-19 Vaccine () COVID-19 Vaccine () [facility] Start: 02-01-2024 Influenza vaccination Influenza Vacc ine (#1) [facility] Start: 01-31-2023 Influenza vaccination C [facility] Start: 09-19-2022 End: 11-19-2022 CBC W Auto Differential panel - Blood CBC + DIFF Lab Routine 26 weeks gestation of Encounter for supervision of other normal in second trimester Expected: 09/19/2022 (Approximate), Expires: 11/19/2022 [facility] Work Phone: Comment on above: Expected: 09/19/2022 (Approximate), Expires: 11/19/2022 Start: 09-19-2022 End: 11-19-2022 GEST GLUC SCREEN, 1-HR, 50 GM, NON-FASTING GEST GLUC SCREEN, 1-HR, 50 GM, NON-FASTING Lab Routine 26 weeks gestation of Encounter for supervision of other normal in second trimester Expected: 09/19/2022 (Approximate), Expires: 11/19/2022 [facility] Work Phone: Comment on above: Expected: 09/19/2022 (Approximate), Expires: 11/19/2022 Start: 09-19-2022 End: 11-19-2022 SYPHILIS TOTAL W/REFLEX SYPHILIS TOTAL W/REFLEX Lab Routine 26 weeks gestation of Encounter for supervision of other normal in second trimester Expected: 09/19/2022 (Approximate), Expires: 11/19/2022 [facility] Work Phone: Comment on above: Expected: 09/19/2022 (Approximate), Expires: 11/19/2022 Start: 08-28-2022 [facility] Start: 2022 HPV TESTING HPV TESTING [facility] Start: 06-07-2022 End: 06-07-2023 OBSTETRIC ULTRASOUND WHI OBSTETRIC ULTRASOUND WHI Anc Imaging Routine Encounter for supervision of other normal in first trimester Expected: 06/07/2022, Expires: 06/07/2023 [facility] Work Phone: Comment on above: Expected: 06/07/2022 , Expires: 06/07/2023 Start: 06-07-2022 End: 08-07-2022 Thyroxine (T4) free [Mass/volume] in Serum or Plasma [facility] Work Phone: Comment on above: Expected: 06/07/2022 , Expires: 08/07/2022 Start: 06-02-2022 DEPRESSION ASSESSMENT DEPRESSION ASS ESSMENT [facility] Start: 05-10-2022 End: 07-10-2022 CBC panel - Blood by Automated count CBC Lab Routine Encounter for supervision of other normal in first trimester 9 weeks gestation of Expected: 05/10/2022, Expires: 07/10/2022 [facility] Work Phone: Comment on above: Expected: 05/10/2022 , Expires: 07/10/2022 Start: 05-10-2022 End: 07-10-2022 Hepatitis B virus surface Ag [Presence] in Serum HEP B SURF AG SCRN Lab Routine Encounter for supervision of other normal in first trimester 9 weeks gestation of Expected: 05/10/2022, Expires: 07/10/2022 [facility] Work Phone: Comment on above: Expected: 05/10/2022 , Expires: 07/10/2022 Start: 05-10-2022 End: 07-10-2022 Hepatitis C virus Ab [Presence] in Serum HEP C AB IA W/CONF SCRN Lab Routine Encounter for supervision of other normal in first trimester 9 weeks gestation of Expected: 05/10/2022, Expires: 07/10/2022 [facility] Work Phone: Comment on above: Expected: 05/10/2022 , Expires: 07/10/2022 Start: 05-10-2022 End: 07-10-2022 HIV 1+2 Ab [Presence] in Serum or Plasma by Immunoassay HIV 1 2 COMBO(AG/AB),WITH REFLEX TO DIFFERENTIATION Lab Routine Encounter for supervision of other normal in first trimester 9 weeks gestation of Expected: 05/10/2022, Expires: 07/10/2022 [facility] Work Phone: Comment on above: Expected: 05/10/2022 , Expires: 07/10/2022 Start: 05-10-2022 End: 07-10-2022 RUBELLA IGG AB RUBELLA IGG AB Lab Routine Encounter for supervision of other normal in first trimester 9 weeks gestation of Expected: 05/10/2022, Expires: 07/10/2022 [facility] Work Phone: Comment on above: Expected: 05/10/2022 , Expires: 07/10/2022 Start: 05-10-2022 End: 07-10-2022 SYPHILIS TOTAL W/REFLEX SYPHILIS TOTAL W/REFLEX Lab Routine Encounter for supervision of other normal in first trimester 9 weeks gestation of Expected: 05/10/2022, Expires: 07/10/2022 [facility] Work Phone: Comment on above: Expected: 05/10/2022 , Expires: 07/10/2022 Start: 05-10-2022 End: 07-10-2022 Thyrotropin [Units/volume] in Serum or Plasma TSH BLD Lab Routine Encounter for supervision of other normal in first trimester 9 weeks gestation of Expected: 05/10/2022, Expires: 07/10/2022 [facility] Work Phone: Comment on above: Expected: 05/10/2022 , Expires: 07/10/2022 Start: 05-10-2022 End: 07-10-2022 TYPE + SCREEN TYPE + SCREEN Blood Bank Routine Encounter for supervision of other normal in first trimester 9 weeks gestation of Expected: 05/10/2022, Expires: 07/10/2022 [facility] Work Phone: Comment on above: Expected: 05/10/2022 , Expires: 07/10/2022 Start: 01-31-2022 Influenza vaccination INFLUENZA (#1) [facility] Start: 11-30-2021 POV, Provider: Alia Donahue, Status: Pen, Time: 3:00 PM POV, Provider: Alia Donahue, Status: Pen, Time: 3:00 PM [facility] Work Phone: Start: 11-30-2021 VIRFUVHOME, Provider : Alia Donahue, Status: Pen, Time: 3:00 PM VIRFUVHOME, Provider: Alia Donahue, Status: Pen, Time: 3:00 PM [facility] Work Phone: Start: 11-28-2021 NPV, Provider: Ramona Morse, Status: Pen, Time: 7:40 AM NPV, Provider: Ramona Morse, Status: Pen, Time: 7:40 AM [facility] Work Phone: Start: 11-06-2021 SURGGRH, Provider: Alfredo Bowden, Status: Pen, Time: 7:30 AM SURGGRH, Provider: Alfredo Bowden, Status: Pen, Time: 7:30 AM [facility] Work Phone: Start: 07-27-2021 NPV, Provider: Alfredo Bowden, Status: Pen, Time: 8:40 AM NPV, Provider: Alfredo Bowden, Status: Pen, Time: 8:40 AM [facility] Work Phone: Start: 06-02-2021 DEPRESSION ASSESSMENT DEPRESSION ASS ESSMENT [facility] Start: 03-07-2021 FUV, Provider: Frida Lieberman, Status: Pen, Time: 3:20 PM FUV, Provider: Frida Lieberman, Status: Pen, Time: [facility]: Start: 10-06-2020 PAP TESTING PAP TESTING [facility] Start: 2019 HPV Vaccine (1 - 3-d ose SCDM series) HPV Vaccine (1 - 3-dose SCDM series) [facility] Start: 2014 DTaP/Tdap/Td Vaccine s (1 - Tdap) DTaP/Tdap/Td Vaccines (1 - Tdap) [facility] Start: 2013 Screening for malign ant neoplasm of cervix HPV/Cotest [facility] Start: 2011 Hepatitis B Vaccine (1 of 3 - 19+ 3-dose series) Hepatitis B Vaccine (1 of 3 - 19+ 3-dose series) [facility] Start: 2011 Hepatitis B Vaccines (1 of 3 - 19+ 3-dose series) Hepatitis B Vaccines (1 of 3 - 19+ 3-dose series) [facility] Start: 2011 Urine microalbumin profile DTAP,TDAP,TD (1 - Tdap) [facility] Start: 2010 Anxiety Screening Anxiety Screening [facility] Start: 2010 [facility]: 2010 HEPATITIS C SCREENING HEPATITIS C [facility] Start: 2010 Hepatitis C screening Hepatitis C [facility] Start: 2010 HIV SCREENING HIV SCREENING [facility] Start: 2005 Varicella vaccination Varicell a Vaccines (1 of 2 - 13+ 2-dose series) [facility] Start: 1993 MMR Vaccines (1 of 1 - Standard series) MMR Vaccines (1 of 1 - Standard series) [facility] Start: 1992 COVID-19 VACCINE (#1) COVID-19 VACCI NE (#1) [facility] Start: 1992 HEPATITIS B (1 of 3 - 3-dose series) HEPATITIS B (1 of 3 - 3-dose series) [facility] Start: 1992 Yearly Adult Physical Yearly Adult P [facility] Bacteria identified in Urine by Culture Urine Culture [facility] Bacteria identified in Urine by Culture BACTERIAL CULTURE, URINE Microbiology Routine with uncertain dates, antepartum 8 weeks gestation of Screen for STD (sexually transmitted disease) 07/20/2024 10:17 AM EST [facility] Chlamydia trachomatis+Neisseria gonorrhoeae DNA [Presence] in Unspecified specimen by TRISH with probe detection GONORRHEA/CHLAMYDIA NAAT Lab Routine with uncertain dates, antepartum 8 weeks gestation of Screen for STD (sexually transmitted disease) 07/20/2024 10:17 AM [facility] PAP FLUID CERVICAL SCREENING PAP FLUID CERVICAL SCREENING Lab Routine Encounter for screening for malignant neoplasm of cervix Ordered: 04/01/2022 [facility] Work Phone: Comment on above: Ordered: 04/01/2022 PAP TEST PAP TEST Lab Rou binta Screening for cervical cancer 07/20/2024 10:17 AM [facility] Patient Education ED Diet Vomiti ng Diarrhea ED Vomiting and Diarrhea ... [facility] Work Phone: Patient referral [facility] Work Phone: ROUTINE, GR OUP B STREP PCR ROUTINE, GROUP B STREP PCR Microbiology Routine 36 weeks gestation of 11/19/2022 8:34 AM [facility] Work Phone: ROUTINE, GR OUP B STREPTOCOCCUS BY PCR ROUTINE, GROUP B STREPTOCOCCUS BY PCR Microbiology Routine 36 weeks gestation of (HCC) Encounter for supervision of other normal in third trimester (HCC) 02/02/2025 9:39 AM [facility] Work Phone: TRICHOMONAS VAGINALI S NAAT TRICHOMONAS VAGINALIS NAAT Lab Routine Screen for STD (sexually transmitted disease) 07/20/2024 10:17 AM [facility] Immunizations Immunization Date Immunization Notes Care Provider Fa sarah 09-20-2022 tetanus toxoid, redu lisa diphtheria toxoid, and acellular pertussis vaccine, adsorbed Brijesh Biswas MD Work Phone: [facility] 03-28-2020 tetanus toxoid, redu lisa diphtheria toxoid, and acellular pertussis vaccine, adsorbed Ana Boateng Work Phone: [facility] Payers Date Payer Category Payer Self-pay [id number] 2023 Managed Care (Private) [facility] [id number] 2021 Medicaid [id number] 2021 Private Health Insurance [id number] 2017 Private Health Insurance 1992 Unknown [id number] 1992 Unknown [id number] 1992 Unknown [id number] Private Health Insurance [facility] [id number] Unknown [facility] Unknown MAI/Aide WILLIS [id number] Unknown [id number] Social History Date Type Detail Facility Start: 06-11-2020 End: 04-01-2022 Denies Ever Smoked [facility] Start: 11-30-2019 End: 10-03-2022 Non-smoker Non-smoker [facility] Start: 04-01-2022 End: 03-29-2024 Tobacco use and exposure Smokeless tobacco non-user [facility] Start: 04-01-2022 End: 02-16-2025 Alcohol intake Lifetime non-drinker (finding) [facility] Start: 11-30-2019 History SDOH Alcohol Frequency 1 [facility] Start: 1990 Sex Assigned At Not on file [place] Start: 03-22-2022 End: 03-29-2024 Exposure to SARS-CoV-2 (event) Not sure [facility] Start: 05-02-2022 Education 17 [facility] Start: 03-20-2022 [facility] Start: 08-28-2022 Tobacco smoking stat [facility] Unknown if ever smoked [facility] Start: 1990 Sex Assigned At Female [facility] Start: 11-30-2019 End: 10-03-2022 Alcohol Use Disorder Identification Test - Consumption [AUDIT-C] [facility] How often to you hav e a drink containing alcohol? Never [facility] Start: 08-21-2017 Average Number of Drinks Not on file [facility] Work Phone: Start: 03-29-2024 Alcoholic beverage intake Current drinker of alcohol (finding) [facility] Work Phone: Start: 07-19-2024 Gender identity Identifies as female gender (finding) [facility] Start: 07-19-2024 Sexual orientation Heterosexua l (finding) [facility] Do you belong to any clubs or organizations such as religion groups, unions, fraternal or athletic groups, or school groups? No [facility] Are you now , , , , never or living with a partner? [facility] How often to you hav e a drink containing alcohol? Monthly or less [facility] How many standard dr inks containing alcohol do you have on a typical day? 1 or 2 [facility] Do you feel stress - tense, restless, nervous, or anxious, or unable to sleep at night because your mind is troubled all the time - these days [OSQ] Not at all [facility] (I/We) worried marcelino er (my/our) food would run out before (I/we) got money to buy more. Never true [facility] NEGATED: Highlighted rowStart: AIXA History of tobacco use Passive smoker [facility] Work Phone: Goals Date Patient Goal Desired Activity /State Personal health goal Personal health goal Functional Status Date Assessment Result Facility 08-10-2024 Total score [AUDIT-C] 1 08/11/19 7:07 PM EDT User, Mycrosannat [facility] 08-10-2024 Within the last year , have you been humiliated or emotionally abused in other ways by your partner or ex-partner? No 08/10/2024 7:07 PM EDT User, Mychart No [facility] 08-10-2024 Within the last year , have you been afraid of your partner or ex-partner? No 08/10/2024 7:07 PM EDT [email or web address] 08-10-2024 Within the last year , have you been raped or forced to have any kind of sexual activity by your partner or ex-partner? No 08/10/2024 7:07 PM EDT User, Mychart No [facility] 08-10-2024 Within the last year , have you been kicked, hit, slapped, or otherwise physically hurt by your partner or ex-partner? No 08/10/2024 7:07 PM EDT User, Mychart No [facility] 08-10-2024 How often to you hav e a drink containing alcohol? Monthly or less 08/10/2024 7:07 PM EDT User, [email or web address] Monthly or less [facility] 08-10-[address] inks containing alcohol do you have on a typical day? 1 or 2 08/10/2024 7:07 PM EDT User, Mycrosannat 1 or 2 [facility] 08-10-2024 How often do you hav e 6 or more drinks on 1 occasion? Never 08/10/2024 7:07 PM EDT User, Yarelist Never [facility] 12-01-2019 Are you deaf, or do you have serious difficulty hearing No 12/01/2019 5:12 AM EDT Cindi Kumar, GENARO No [facility] 12-01-2019 Are you blind, or do you have serious difficulty seeing, even when wearing glasses No 12/01/2019 5:12 AM EDT Cindi Kumar RN No [facility] 12-01-2019 Do you have serious difficulty walking or climbing stairs No 12/01/2019 5:12 AM EDT Cindi Kumar RN No [facility] 12-01-2019 Do you have difficul ty dressing or bathing No 12/01/2019 5:12 AM EDT Cindi Kumar RN No [facility] 12-01-2019 Because of a physica l, mental, or emotional condition, do you have difficulty doing errands alone such as visiting a physician's office or shopping No 12/01/2019 5:12 AM EDT Cindi Kumar RN No [facility] Mental Status Date Assessment Result Facility 12-01-2019 Because of a physica l, mental, or emotional condition, do you have serious difficulty concentrating, remembering, or making decisions No 12/01/2019 5:12 AM EDT Cindi Kumar RN No [facility] Clinical Notes 12-01-2019 to 02-16-2025 Quick Notes [...] URINE OB DIP B/O Ana Hilario MD [facility] 02-16-2025 Miscellaneous Notes Formattin g of this [...] Ana Hilario MD documented in this encounter [facility] 02-16-2025 Instructions Cecelia Pardo MA - 02/16/2025 8:18 AM EDT SEQUENTIAL SCREENINGS The [facility] offers sequential screenings for women who are [...] It will require an appointment with our agricultural service technician. This is not an ultrasound performed [...] the above symptoms, contact our office at [phone] and ask to speak with a nurse. After hours, you can call doctors registry at [phone] OR call [facility] at [phone] and ask to have the doctor supervisor elementary education paged. If you consider this an emergency, dial 4-4-6 or go to your nearest emergency department. NEED HELP? Are you dealing with a violent or abusive relationship? Are you a victim of rape or sexual assult? Call [facility] [place] ([place]) 24 hour Crisis Hotline: 150.592.3893 or 020-586-5871. MANUAL Your Guide to a Healthy manual is now on-line. Visit [email or web address] [email or web address] to download your free copy documented in this encounter [facility] 02-10-2025 Note HNO ID: [id number] Author: TATE GARNER, ? Service: ? Author Type: Patient Dietist Type: Progress Notes Filed: 02/10/2025 07:09 Note Text: POPULATION HEALTH NAVIGATION OUTREACH Action/FYI No outreach done added rn maternal child via note Reason for Outreach Medicaid OB/Peds Care Gaps due: N/A Patient Contacted: Unable or unnecessary to reach patient: [place] rn maternal child added Navigation Signature: Tate Garner Population Health Navigator February 10, 2025 7:08 AM [facility] 02-10-2025 History of Presen t illness Narrative POPULATION HEALTH NAVIGATION OUTREACH Action/FYI No outreach done added rn maternal child via note Reason for Outreach Medicaid OB/Peds Care Gaps due: N/A Patient Contacted: Unable or unnecessary to reach patient: rn maternal child added Navigation Signature: Tate Garner Population Health Navigator February 10, 2025 7:08 AM documented in this encounter [facility] 02-10-2025 Note Patient Outreach (NE TNAV) RAMONA WAHL ([id number]) 1990 F Date Time Provider Department 02/10/25 TATE GARNER NETCEFERINOV During your visit today, we recorded the following information about you: Tate Garner 02/10/2025 7:09 AM Signed POPULATION HEALTH NAVIGATION OUTREACH / No outreach done added rn maternal child via note Reason for Outreach Medicaid OB/Peds Care Gaps due: N/A Patient Contacted: Unable or unnecessary to reach patient: [place] rn maternal child added Navigation Signature: Tate Garner Population Jobulous Navigator February 10, 2025 7:08 AM Allergies [...] Encounter Status:Closed by TATE GARNER on 02/10/25 [facility] 02-09-2025 Progress note Formatting of t his [...] or sooner if needed Yumiko Andersen APRN.CNM [facility] 02-09-2025 Miscellaneous Notes Formattin g of this [...] Yumiko Andersen APRN.CNM documented in this encounter [facility] 02-09-2025 Instructions Kaylie Benz LPN - 02/09/2025 10:12 AM EDT SEQUENTIAL SCREENINGS The [facility] offers sequential screenings for women who are [...] It will require an appointment with our agricultural service technician. This is not an ultrasound performed [...] the above symptoms, contact our office at [phone] and ask to speak with a nurse. After hours, you can call doctors registry at [phone] OR call [facility] at [phone] and ask to have the doctor supervisor elementary education paged. If you consider this an emergency, dial 9-1-2 or go to your nearest emergency department. NEED HELP? Are you dealing with a violent or abusive relationship? Are you a victim of rape or sexual assult? Call [facility] ([place]) 24 hour Crisis Hotline: 693.659.8423 or 796-229-0623. MANUAL Your Guide to a Healthy manual is now on-line. Visit [email or web address] [email or web address] to download your free copy documented in this encounter [facility] 02-02-2025 Progress note Formatting of t his [...] was discussed with the patient or authorized retail field representative. The patient or authorized retail field representative has agreed to proceed with the sensitive examination. ASSESSMENT/PLAN: 1. Encounter for supervision of other normal in third trimester -Continue PNV 2. 36 weeks gestation of 3. History of hypothyroidism - THYROID STIMULATING HORMONE - T4 FREE/FREE THYROXINE PTL precautions reviewed RTO in one week Ethel Ruiz APRN.CNM [facility] 02-02-2025 Miscellaneous Notes Formattin g of this [...] was discussed with the patient or authorized retail field representative. The patient or authorized retail field representative has agreed to proceed with the sensitive examination. ASSESSMENT/PLAN: 1. Encounter for supervision of other normal in third trimester -Continue PNV 2. 36 weeks gestation of 3. History of hypothyroidism - THYROID STIMULATING HORMONE - T4 FREE/FREE THYROXINE PTL precautions reviewed RTO in one week Ethel Ruiz APRN.CNM documented in this encounter [facility] 02-02-2025 Instructions Ethel Ruiz APRN.MICHELLE - 02/02/2025 [...] easy pie crust in the food service steward. Add soaked dates to homemade nut butter for a sweet treat. Add dates to chino homemade salad dressing. Add dates during easily with these yummy (paleo friendly) bars made from dates. What Is Red Raspberry [place] Tea? Red raspberry leaf tea comes from [...] , and too. How Much Red Raspberry [place] Tea to Drink? With your doctor or cisco certified network associate s approval, start with 1 cup of [...] because of uterine cramping. Is Red Raspberry [place] Tea the Same as Raspberry [place] Tea? How About Plain Old Raspberry Tea? Sometimes. You really need to look at the ingredients to be sure. Note that there is no difference between red raspberry leaf and raspberry leaf. CodeSealer or MemoryMerge Raspberry [place] Tea are two good brands. The red [...] outlined in this article. [employer] www.[employer] I named this 'circuit' after my friend [...] sideways, 2 at a time, (have a acid dumper downstairs of you!), take a walk outside [...] the pelvis. Laurence Cesar: Circuit Creator - www.[employer]. Tucker Blair Jacqui Kirk, CLEMENT, BDT (NAHED), LCCE, FACCE: Supporting Content - www.[employer] Jenny Lin: Photography - www.[employer] Kylah Vidales CD/CDT (JETT): Print and Vessel Liner - www.[employer] The [employer] www.[employer] SIGNS AND SYMPTOMS OF LABOR 1. Contractions every 10 minutes or more often 2. Clear, pink, or brownish fluid (water) leaking from vagina 3. Feeling that baby is pushing down, pressure 4. Low, dull backache 5. Cramps that feel like a period 6. Cramps with or without diarrhea If you notice any of the above symptoms, contact our office at [phone] and ask to speak with a nurse. After hours, you can call doctors registry at [phone] OR call [facility] at [phone] and ask to have the doctor supervisor elementary education paged. If you consider this an emergency, dial or go to your nearest emergency department. NEED HELP? Are you dealing with a violent or abusive relationship? Are you a victim of rape or sexual assult? Call [facility] ([place]) 24 hour Crisis Hotline: 290.264.1573 or 013-021-6622. MANUAL Your Guide to a Healthy manual is now on-line. Visit [email or web address] [email or web address] to download your free copy documented in this encounter [facility] 01-19-2025 Progress note Formatting of t his [...] nontender ASSESSMENT/PLAN: 1. 34 weeks gestation of ([facility]) - ICD9: V22.2, ICD10: Z3A.34 (primary diagnosis) - URINE OB DIP B/O 2. Encounter for supervision of other normal in third trimester ([facility]) - ICD9: V22.1, ICD10: Z34.83 - URINE OB DIP B/O 3. History of hypothyroidism - ICD9: V12.29, ICD10: Z86.39 TSH 2.8 - URINE OB DIP B/O Ana Hilario MD [facility] 01-19-2025 Miscellaneous Notes Formattin g of this [...] nontender ASSESSMENT/PLAN: 1. 34 weeks gestation of ([facility]) - ICD9: V22.2, ICD10: Z3A.34 (primary diagnosis) - URINE OB DIP B/O 2. Encounter for supervision of other normal in third trimester ([facility]) - ICD9: V22.1, ICD10: Z34.83 - URINE OB DIP B/O 3. History of hypothyroidism - ICD9: V12.29, ICD10: Z86.39 TSH 2.8 - URINE OB DIP B/O Ana Hilario MD documented in this encounter [facility] 01-19-2025 Instructions Seema Rose MA - 01/19/2025 10:15 AM EDT SEQUENTIAL SCREENINGS The [facility] offers sequential screenings for women who are [...] It will require an appointment with our agricultural service technician. This is not an ultrasound performed [...] the above symptoms, contact our office at [phone] and ask to speak with a nurse. After hours, you can call doctors registry at [phone] OR call [facility] at [phone] and ask to have the doctor supervisor elementary education paged. If you consider this an emergency, dial 7--8 or go to your nearest emergency department. NEED HELP? Are you dealing with a violent or abusive relationship? Are you a victim of rape or sexual assult? Call [facility] ([place]) 24 hour Crisis Hotline: 241.625.8977 or 772-898-6902. MANUAL Your Guide to a Healthy manual is now on-line. Visit [email or web address] [email or web address] to download your free copy documented in this encounter [facility] 12-22-2024 Progress note Formatting of t his note might be different from the original. S: Ramona Wahl is a 34 year old female who presents at 30 weeks gestation for a routine visit. Positive movements. Increased bilateral hip pain. Reports this occurs during . Has tried pet care worker in the past without relief. Discussed massage therapy and /or finding new chiropractor. Denies headache, visual changes, chest pain, shortness of breath, vaginal bleeding, leakage of fluid, or dysuria. O: See flow sheet Gen: No apparent distress Abd: Gravid, non tender ASSESSMENT/PLAN: 1. 30 weeks gestation of 2. Encounter for supervision of other normal in third trimester 3. Bilateral hip pain Massage therapy home care provider Yoga/stretching Continue vitamin daily Opted out of ASA RTO 2 weeks or sooner if needed Yumiko Andersen APRN.CNM [facility] 12-22-2024 Miscellaneous Notes Formattin g of this note might be different from the original. S: Ramona Wahl is a 34 year old female who presents at 30 weeks gestation for a routine visit. Positive movements. Increased bilateral hip pain. Reports this occurs during . Has tried pet care worker in the past without relief. Discussed massage therapy and /or finding new chiropractor. Denies headache, visual changes, chest pain, shortness of breath, vaginal bleeding, leakage of fluid, or dysuria. O: See flow sheet Gen: No apparent distress Abd: Gravid, non tender ASSESSMENT/PLAN: 1. 30 weeks gestation of 2. Encounter for supervision of other normal in third trimester 3. Bilateral hip pain Massage therapy home care provider Yoga/stretching Continue vitamin daily Opted out of ASA RTO 2 weeks or sooner if needed Yumiko Andersen APRN.CNM documented in this encounter [facility] 12-22-2024 Instructions Seema Rose MA - 12/22/2024 8:02 AM EDT SEQUENTIAL SCREENINGS The [facility] offers sequential screenings for women who are [...] It will require an appointment with our agricultural service technician. This is not an ultrasound performed [...] the above symptoms, contact our office at [phone] and ask to speak with a nurse. After hours, you can call doctors registry at [phone] OR call [facility] at [phone] and ask to have the doctor supervisor elementary education paged. If you consider this an emergency, dial 9-1- or go to your nearest emergency department. NEED HELP? Are you dealing with a violent or abusive relationship? Are you a victim of rape or sexual assult? Call [facility] ([place]) 24 hour Crisis Hotline: 574.856.8843 or 616-621-2919. MANUAL Your Guide to a Healthy manual is now on-line. Visit [email or web address] [email or web address] to download your free copy documented in this encounter [facility] 12-08-2024 Progress note Formatting of t his [...] supervision of other normal in second trimester ([facility]) - ICD9: V22.1, ICD10: Z34.82 (primary diagnosis) - Continue PNV - Considering removal of tubes. Risks and benefits reviewed. 2. 28 weeks gestation of ([facility]) - ICD9: V22.2, ICD10: Z3A.28 - 1 hour GCT, CBC, and RPR today - Rh positive - Declines TDAP - LARC form reviewed and signed. Declines. - Depression screen negative - Opioid screen negative - plan form discussed and given to Ramona - Reviewed how to pre register through [facility] 3. History of hypothyroidism - ICD9: V12.29, ICD10: Z86.39 - TSH/T4 today PTL precautions and kick counts reviewed. RTO in 2 weeks or sooner as needed. Jenny Huitron APRN.HOSPITAL CLEANER T [facility] 12-08-2024 Miscellaneous Notes Formattin g of this [...] supervision of other normal in second trimester ([facility]) - ICD9: V22.1, ICD10: Z34.82 (primary diagnosis) - Continue PNV - Considering removal of tubes. Risks and benefits reviewed. 2. 28 weeks gestation of ([facility]) - ICD9: V22.2, ICD10: Z3A.28 - 1 hour GCT, CBC, and RPR today - Rh positive - Declines TDAP - LARC form reviewed and signed. Declines. - Depression screen negative - Opioid screen negative - plan form discussed and given to Ramona - Reviewed how to pre register through [facility] 3. History of hypothyroidism - ICD9: V12.29, ICD10: Z86.39 - TSH/T4 today PTL precautions and kick counts reviewed. RTO in 2 weeks or sooner as needed. Jenny Huitron APRN.CNP documented in this encounter [facility] 12-08-2024 Instructions Jenny Huitron APRN.CNP - 12/08/2024 8:40 AM EDT Please call [phone] to pre-register for your and labor and delivery stay at [facility]. They will want to know your due date, insurance and contact information. This is important to do before you go into labor to help with the efficiency of the admission process when you arrive. Thank you so much! SEQUENTIAL SCREENINGS The [facility] offers sequential screenings for women who are [...] It will require an appointment with our agricultural service technician. This is not an ultrasound performed [...] the above symptoms, contact our office at [phone] and ask to speak with a nurse. After hours, you can call doctors registry at [phone] OR call [facility] at [phone] and ask to have the doctor supervisor elementary education paged. If you consider this an emergency, dial 01-31- or go to your nearest emergency department. NEED HELP? Are you dealing with a violent or abusive relationship? Are you a victim of rape or sexual assult? Call [facility] ([place]) 24 hour Crisis Hotline: 527.626.4475 or 132-476-3286. MANUAL Your Guide to a Healthy manual is now on-line. Visit [email or web address] [email or web address] to download your free copy documented in this encounter [facility] 11-30-2024 Telephone encount er Note [facility] paperwork received 11/30/2024. Paper work is in providers mailbox waiting to be signed 11/30/2024. [facility] paper work signed and faxed. 12/06/2024 [facility] 11-30-2024 Miscellaneous Notes Formattin g of this note might be different from the original. [facility] paperwork received 11/30/2024. Paper work is in providers mailbox waiting to be signed 11/30/2024. [facility] paper work signed and faxed. 12/06/2024 documented in this encounter [facility] 11-10-2024 Note HNO ID: [id number] Author: JENNY HUITRON APRN.HOSPITAL CLEANER Service: ? Author Type: Nurse Practitioner Type: [...] supervision of other normal in second trimester ([facility]) - ICD9: V22.1, ICD10: Z34.82 (primary diagnosis) - Continue PNV 2. 24 weeks gestation of ([facility]) - ICD9: V22.2, ICD10: Z3A.24 - GTT, CBC, RPR next visit 3. History of hypothyroidism - ICD9: V12.29, ICD10: Z86.39 - TSH/T4 ordered for next visit - Not on any medication PTL precautions reviewed. RTO in 4 weeks or sooner as needed. Jenny Huitron APRN.HOSPITAL CLEANER [facility] 11-10-2024 History of Presen t illness Narrative [...] supervision of other normal in second trimester ([facility]) - ICD9: V22.1, ICD10: Z34.82 (primary diagnosis) - Continue PNV 2. 24 weeks gestation of ([facility]) - ICD9: V22.2, ICD10: Z3A.24 - GTT, CBC, RPR next visit 3. History of hypothyroidism - ICD9: V12.29, ICD10: Z86.39 - TSH/T4 ordered for next visit - Not on any medication PTL precautions reviewed. RTO in 4 weeks or sooner as needed. Jenny Huitron APRN.HOSPITAL CLEANER documented in this encounter [facility] 11-10-2024 Instructions Manuela Taylor MA - 11/10/2024 8:45 AM EDT SEQUENTIAL SCREENINGS The [facility] offers sequential screenings for women who are [...] It will require an appointment with our agricultural service technician. This is not an ultrasound performed [...] the above symptoms, contact our office at [phone] and ask to speak with a nurse. After hours, you can call doctors registry at [phone] OR call [facility] at [phone] and ask to have the doctor supervisor elementary education paged. If you consider this an emergency, dial 9-1-5 or go to your nearest emergency department. NEED HELP? Are you dealing with a violent or abusive relationship? Are you a victim of rape or sexual assult? Call [facility] ([place]) 24 hour Crisis Hotline: 616.217.9646 or 647-052-2351. MANUAL Your Guide to a Healthy manual is now on-line. Visit [email or web address] [email or web address] to download your free copy documented in this encounter [facility] 10-13-2024 Note HNO ID: [id number] Author: ETHEL RUIZ APRN.CNM Service: ? Author Type: Costume Seamstress Type: Progress Notes Filed: 10/13/2024 12:17 Note [...] RTO in 4 weeks Ethel Ruiz APRN.CNM [facility] 10-13-2024 History of Presen t illness Narrative [...] Ethel Ruiz APRN.CNM documented in this encounter [facility] 10-13-2024 Instructions Joe Farooq MA - 10/13/2024 11:13 AM EDT SEQUENTIAL SCREENINGS The [facility] offers sequential screenings for women who are [...] It will require an appointment with our agricultural service technician. This is not an ultrasound performed [...] the above symptoms, contact our office at [phone] and ask to speak with a nurse. After hours, you can call doctors registry at [phone] OR call [facility] at [phone] and ask to have the doctor supervisor elementary education paged. If you consider this an emergency, dial 9-1-1 or go to your nearest emergency department. NEED HELP? Are you dealing with a violent or abusive relationship? Are you a victim of rape or sexual assult? Call [facility] [place] ([place]) 24 hour Crisis Hotline: 534.333.2708 or 773-141-1175. MANUAL Your Guide to a Healthy manual is now on-line. Visit [email or web address] [email or web address] to download your free copy documented in this encounter [facility] 09-28-2024 Telephone encount er Note Faxed. Akanksha Fonseca RN [facility] 09-28-2024 Miscellaneous Notes Formattin g of this note might be different from the original. Faxed. Akanksha Fonseca, RN Breast pump request received from [employer]. Order to provider to sign. Fanny Virk RN documented in this encounter [facility] 09-27-2024 Telephone encount er Note Breast pump request received from [employer]. Order to provider to sign. Fanny Virk RN [facility] 09-20-2024 Evaluation note Diagnosis Encounter for supervision of normal intrauterine in multigravida, antepartum (HCC)- Primary * Assessment & Plan Note - Karoline Bautista MD - 09/20/2024 8:50 AM EDT Associated Problem(s): Encounter for supervision of normal intrauterine in multigravida, antepartum (HCC) documented in this encounter [facility]04-21-2025 Progress note* Quick Notes - Karoline Bautista [...] prn anatomy US scheduled Karoline John, M.D. [facility]04-21-2025 Miscellaneous Notes* Quick Notes - Karoline Bautista [...] scheduled Karoline Bautista M.D. [facility] Progress note* Result Encounter Note - Karoline Bautista MD - 08/17/2024 2:50 PM EDT Anatomy ultrasound reviewed. No abnormalities identified. Follow up as clinically indicated. Pleaseplace copy in ob chart. Karoline Bautista MD [facility] Work Phone: [phone] Miscellaneous Notes* Result Encounter Note - Karoline Bautista MD - 08/17/2024 2:50 PM EDT Anatomy ultrasound reviewed. No abnormalities identified. Follow up as clinically indicated. Pleaseplace copy in ob chart. Karoline Bautista MD [facility] Progress note* Quick Notes - Ethel Ruiz [...] RTO in 4 weeks Ethel Ruiz APRN.CNM [facility]03-18-2025 Miscellaneous Notes* Quick Notes - Ethel Ruiz [...] weeks Ethel Ruiz APRN.CNM [facility] Instructions* Patient Instructions* Joe Farooq MA - 08/17/2024 2:03 PM EDT SEQUENTIAL SCREENINGS The [facility] offers sequential screenings for women who are [...] testing. It will require an appointment withour agricultural service technician. This is not an ultrasound performed [...] the above symptoms, contact our office at [phone] and ask to speak with anurse. After hours, you can call doctors registry at [phone] OR call [facility] at [phone] ask to have the doctor supervisor elementary education paged. If you consider this an emergency, dial 5-4-7 or go to your nearest emergency department. NEED HELP? Are you dealing with a violent or abusive relationship? Are you a victim of rape or sexual assult? Call [facility] [place] ([place]) 24 hour Crisis Hotline: 147.747.3547 or 447-863-2832. MANUAL Your Guide to a Healthy manual is now on-line. Visit [email or web address] to download your free copy [facility] History of Present illness Narrative* Jeannie Taylor APRN.HOSPITAL CLEANER - 08/17/2024 10:20 AM EDT 08/17/2024 Patient [...] No history of dysuria, frequency or incontinence INSTALLATION TECHNICIAN: Negative for abnormal vaginal bleeding, abnormal vaginal [...] agreeable to treatment plan. [facility]25 NoteHNO ID: [id number] Author: JEANNIE TAYLOR APRN.CNP Service: ? Author [...] No history of dysuria, frequency or incontinence INSTALLATION TECHNICIAN: Negative for abnormal vaginal bleeding, abnormal vaginal [...] annual exam in one year Jeannie RicelogFRED stewart.HOSPITAL CLEANER Prescription instructions reviewed with patient as applicable. Patient advised if symptoms do not improve or if symptoms worsen sooner, to contact their primary care physician. Potential red flag symptoms discussed with the patient. Reviewed appropriate action plan to take if red flag symptoms occur. Patient agreeable to treatment plan.[facility]02-17-2025 NoteHNO ID: [id number] Author: MARIELLE JIMÉNEZ APRN.HOSPITAL CLEANER Service: ? Author Type: Nurse Practitioner Type: Progress Notes Filed: 07/20/2024 10:21 Note Text: Patient declined lease operator. INITIAL OB ASSESSMENT HPI: Ramona is a [...] Negative for: Swelling, Pain, (more content not included)...[facility]02-17-2025 History of Present illness Narrative* Marielle Jiménez APRN.HOSPITAL CLEANER - 07/19/2024 2:33 PM EST Patient declined lease operator. INITIAL OB ASSESSMENT HPI: Ramona is a [...] discussed with the Patient or Patient's Authorized Account Receivable Associate. As applicable, any other physician, advance practice provider, medical student, or other health professional student that will be observing or involved in the sensitive examination for educational or training purposes was discussed with the Patient or Authorized Account Receivable Associate. The Patient or Authorized Account Receivable Associate has agreed to proceed with the sensitive [...] performed. +cardiac activity, CRL consistent with LMP. Marielle Jiménez, COMMUNICATIONS PROFESSIONAL.HOSPITAL CLEANER ASSESSMENT: 34 year old at 8w5d wks gestational age PLAN: 1) Patient oriented to practice. Patient given new OB orientation folder. Discussed nutrition, folic acid supplementation, dietary guidelines, exercise, smoking, alcohol, caffeine, and drug use. Discussed gestational weight gain guidelines. Discussed routine OB labs including STD/HIV. Discussed how to access Your guide to a health and the Pruner. Reviewed midwifery and felt cutting machine operator services that are available. 2) Screening: Hemoglobin [...] in 4 weeks or sooner prn. Marielle Jiménze APRN.BECCA documented in this encounterSelect [facility]02-17-2025 Instructions* Patient Instructions* Kaylie Benz LPN - 07/19/2024 2:33 PM EST Please select the following link to access the [facility] Your Guide to a Healthy . [email or web address] Please select the following link to access the [facility] Your Guide to a Healthy . [email or web address] documented in this encounterSelect Medical [facility]02-10-2025 Instructions* Patient Instructions* Ethel Ruiz APRN.CNM - 07/12/2024 10:11 AM EST Get labs [facility] at [facility] visit MORNING SICKNESS IN by Taryn Riley M.D. for [facility] [employer] As you may already know, morning sickness can often be more appropriately called evening sickness or tiajl-hplofj-xi-the-day sickness. While there are the rolando few, [...] medication, Doxylamine, is currently marketed as an czom-vcv-yeizfid sleeping pill. Ask your practitioner if creating a vitamin B6/Doxylaminecombination with ylax-utg-iwvptqn medications would be safe for you. Prescription [...] IV packs 1-2 times a day Body [place] Reglan for nausea Pepcid daily Stop PNV [...] fact sheeton Nausea and Vomiting in at https://mothertobaby.org/fact-sheets/rawonn-kbjtofbo-mqejlebpy-nvp/pdf/. Can metoclopramide increase the chance for a [...] trouble with milk production, working with a personnel consultant may be the most helpful in [...] fact sheet on Paternal Exposures at https:/ /mothertobaby.org/fact-sheets/wywzcipb-wtpfuhwcg-ilzxthadn/pdf/. documented in this encounterSelect Medical Specialty [facility]02-10-2025 NoteHNO ID: [id number] Author: ETHEL RUIZ APRN.CNM Service: ? Author Type: Costume Seamstress Type: Progress Notes Filed: 07/12/2024 10:26 Note Text: DISTANCE HEALTH VISIT This Team Access Model visit is a virtual encounter. It required patient-provider interaction for the medical decision making as documented below. I have communicated my name and active licensure. The patient's identity and physical location were verified at the time of this visit. Either the patient or their legal retail field representative has been informed of the risks [...] with more than 50% of the total eheb-id-xpom time of the visit in counseling / coordination of care.[facility]02-10-2025 History of Present illness Narrative* Ethel Ruiz [...] visit. Either the patient or their legal retail field representative has been informed of the risks [...] with more than 50% of the total esmd-os-aztc time of the visit in counseling / coordination of care. documented in this encounterSelect Medical [facility]ty [facility]10-28-2024 History of Present illness Narrative* Castro Heart [...] lavage rc Messer prn [facility] Work Phone: 1(157) 617-353609-13-2024 History of Present illness Narrative* Phillip Castro MD - 02/13/2024 8:19 AM EDT Patient declined lease operator. The sensitive examination was discussed with the Patient or Patient's Authorized Account Receivable Associate. Asapplicable, any other physician, advance practice provider, medical student, or other health professional student that will be observing or involved in the sensitive examination for educational or training purposes was discussed with the Patient or Authorized Account Receivable Associate. The Patient or Authorized Account Receivable Associate has agreed to proceed with the sensitive [...] Multiple0 Live Births2 Comment: 1 vaginal delivery Grade Recorder History LMP: 01/20/2024, Unknown Age at Menarche: Age at First : Age at Menopause: Grade Recorder History Comments: Sexual Activity: Yes; Male Contraception: [...] discussed with the Patient or Patient's Authorized Account Receivable Associate. As applicable, any other physician, advance practice provider, medical student, or other health professional student that will be observing or involved in the sensitive examination for educational or training purposes was discussed with the Patient or Authorized Account Receivable Associate. The Patient or Authorized Account Receivable Associate has agreed to proceed with the sensitive [...] external genitalia normal, normal Bartholin's glands, urethra, [place]'s glands, no vulvar lesions, no cervical lesions, [...] needed Phillip Castro DO documented in this encounterSelect Medical [facility]ty [facility]08-03-2023 History of Present illness Narrative* Phillip Castro [...] issues Sleep: no sleep concerns, feels rested [place] since delivery: Not resumed Emotional support: Yes [...] needed Phillip Castro DO documented in this encounterSelect Medical [facility]ty [facility]07-17-2023 History of Present illness Narrative* Crystal Baxter [...] SIGNATURE: Crystal Beasley MD documented in this encounterSelect Medical Specialty [facility]07-17-2023 Miscellaneous Notes* Quick Notes - Crystal Baxter MD - 12/16/2022 3:24 PM EDT DM- Pt doing well today. Denies Vaginal Bleeding, Leaking fluid, or contractions. Pt reports good movement. IOL was canceled today- rescheduled for 41.1 weeks- STEPHANIE today on bedside ultrasound 14cm, NST today reactive cat 1. Pt declines membrane sweep today. Crystal Beasley MD documented in this encounterSelect Medical Specialty [facility]07-17-2023 Instructions* Patient Instructions* Haley Junior Ma - 12/16/2022 2:34 PM EDT SEQUENTIAL SCREENINGS The [facility] offers sequential screenings for women who are [...] testing. It will require an appointment withour agricultural service technician. This is not an ultrasound performed [...] the above symptoms, contact our office at [phone] and ask to speak with anurse. After hours, you can call doctors registry at [phone] OR call [facility] at [phone] ask to have the doctor supervisor elementary education paged. If you consider this an emergency, dial 9-1-3 or go to your nearest emergency department. NEED HELP? Are you dealing with a violent or abusive relationship? Are you a victim of rape or sexual assult? Call [facility] ([place]) 24 hour Crisis Hotline: 556.656.7344 or 689-959-5862. MANUAL Your Guide to a Healthy manual is now on-line. Visit [email or web address] to download your free copy documented in this encounterSelect Medical Specialty [facility]07-14-2023 Miscellaneous Notes* Quick Notes - Crystal Baxter MD - 12/13/2022 11:10 AM EDT DM- Pt doing well today. Denies Vaginal Bleeding, Leaking fluid, or contractions. Pt reports good movement. IOL scheduled for next week. Membranes swept per patient request. Kick counts and labor reviewed. Crystal Beasley MD documented in this encounterSelect Medical Specialty [facility]07-14-2023 Instructions* Patient Instructions* Haley Junior Ma - 12/13/2022 9:58 AM EDT SEQUENTIAL SCREENINGS The [facility] offers sequential screenings for women who are [...] testing. It will require an appointment withour agricultural service technician. This is not an ultrasound performed [...] the above symptoms, contact our office at [phone] and ask to speak with anurse. After hours, you can call [employer] registry at [phone] OR call [facility] at [phone] ask to have the doctor supervisor elementary education paged. If you consider this an emergency, dial 9-1-5 or go to your nearest emergency department. NEED HELP? Are you dealing with a violent or abusive relationship? Are you a victim of rape or sexual assult? Call [facility] ([place]) 24 hour Crisis Hotline: 897.948.2527 or 340-442-3603. MANUAL Your Guide to a Healthy manual is now on-line. Visit [email or web address] to download your free copy documented in this encounterSelect Medical Specialty [facility]07-10-2023 Miscellaneous Notes* Quick Notes - Karoline Bautista MD - 12/09/2022 10:20 AM EDT RR- No VB/LOF. No regular ctxws. No signif edema. Denies Freeman or visual changes. D/w her options, elects for membrane sweep today. F/u in 4-5 days and if not delivered likely would plan approx 41 week induction. Karoline Bautista MD documented in this encounterSelect Medical Specialty [facility]07-10-2023 Instructions* Patient Instructions* Luciana Al Ma - 12/09/2022 10:02 AM EDT SEQUENTIAL SCREENINGS The [facility] offers sequential screenings for women who are [...] testing. It will require an appointment withour agricultural service technician. This is not an ultrasound performed [...] the above symptoms, contact our office at [phone] and ask to speak with anurse. After hours, you can call doctors registry at [phone] OR call [facility] at [phone] ask to have the doctor supervisor elementary education paged. If you consider this an emergency, dial 9-1-6 or go to your nearest emergency department. NEED HELP? Are you dealing with a violent or abusive relationship? Are you a victim of rape or sexual assult? Call [facility] ([place]) 24 hour Crisis Hotline: 563.332.8889 or 590-867-9410. MANUAL Your Guide to a Healthy manual is now on-line. Visit [email or web address] to download your free copy documented in this encounterSelect Medical Specialty [facility]06-26-2023 Miscellaneous Notes* Quick Notes - Ethel Ruiz [...] week Ethel Ruiz APRN.CNM documented in this encounterSelect Medical Specialty Hospital [facility]06-26-2023 Instructions* Patient Instructions* Joe Farooq Cma - 11/25/2022 11:07 AM EDT SEQUENTIAL SCREENINGS The [facility] offers sequential screenings for women who are [...] testing. It will require an appointment withour agricultural service technician. This is not an ultrasound performed [...] the above symptoms, contact our office at [phone] and ask to speak with anurse. After hours, you can call doctors registry at [phone] OR call [facility] at [phone] ask to have the doctor supervisor elementary education paged. If you consider this an emergency, dial 4-3-5 or go to your nearest emergency department. NEED HELP? Are you dealing with a violent or abusive relationship? Are you a victim of rape or sexual assult? Call [facility] ([place]) 24 hour Crisis Hotline: 155.281.5139 or 945-868-2530. MANUAL Your Guide to a Healthy manual is now on-line. Visit [email or web address] to download your free copy documented in this encounterSelect Medical Specialty [facility]06-20-2023 Miscellaneous Notes* Quick Notes - Ethel Ruiz [...] support. Ethel Ruiz APRN.CNM documented in this encounterSelect Medical Specialty Hospital [facility]06-20-2023 Instructions* Patient Instructions* Ethel Ruiz APRN.CNM - [...] easy pie crust in the food service steward. Add soaked dates to homemade nut butter for a sweet treat. Add dates to chino homemade salad dressing. Add dates during easily with these yummy (paleo friendly) bars made from dates. What Is Red Raspberry [place] Tea? Red raspberry leaf tea comes from [...] , and too. How Much Red Raspberry [place] Tea to Drink? With your doctor or cisco certified network associate s approval, start with 1 cup of [...] because of uterine cramping. Is Red Raspberry [place] Tea the Same as Raspberry [place] Tea? How About Plain Old Raspberry Tea? Sometimes. You really need to look at the ingredients to be sure. Note that there is no difference between red raspberry leaf and raspberry leaf. CodeSealer or MemoryMerge Raspberry [place] Tea are two good brands. The red [...] of RRLT outlined in this article. The [employer] www.[employer] I named this 'circuit' after my friend [...] sideways, 2 at a time, (have a acid dumper downstairs of you!), take a walk outside [...] pelvis. Laurence Stevens Arsenio: Circuit Creator - www.dorchesterGrownOutnortheast regional medical centercollAlminder.Tucker Blair Jacqui Kirk CD, BDT (NAHED), LCCE, FACCE: Supporting Content - www.Heuresis CorporationyangMaidou Internationalconcetta.Tucker Blair Jenny Lin: Photography - www.kieshaaverbroNulu.Tucker Blair Kylah Vidales CD/CDT (JETT): Print and Vessel Liner - www.MedClaims Liaison.[employer] Masterminds The [employer]ame [employer] www.[employer] What is my perineum? Your perineum is [...] the above symptoms, contact our office at [phone] and ask to speak with anurse. After hours, you can call doctors registry at [phone] OR call [facility] at [phone] ask to have the doctor supervisor elementary education paged. If you consider this an emergency, dial 9-1-2 or go to your nearest emergency department. NEED HELP? Are you dealing with a violent or abusive relationship? Are you a victim of rape or sexual assult? Call [facility] ([place]) 24 hour Crisis Hotline: 726.520.2241 or 395-553-8880. MANUAL Your Guide to a Healthy manual is now on-line. Visit [email or web address] to download your free copy documented in this encounterSelect Medical Specialty [facility]06-05-2023 Miscellaneous Notes* Quick Notes - Phillip Castro MD - 11/04/2022 10:47 AM EDT SW- Pt doing well. No ctx, vb, lof. Good FM PE: Gen- NAD, well appearing Abd- Soft, gravid, NT Ext- No edema See flowsheet A/p 34 wk gestation - Discussed PTL precautions and FKC's - RTO 2 wks for GBS Phillip Castro DO documented in this encounterSelect Medical Specialty [facility]06-05-2023 Instructions* Patient Instructions* Seema Rose MA - 11/04/2022 10:34 AM EDT SEQUENTIAL SCREENINGS The [facility] offers sequential screenings for women who are [...] testing. It will require an appointment withour agricultural service technician. This is not an ultrasound performed [...] the above symptoms, contact our office at [phone] and ask to speak with anurse. After hours, you can call doctors registry at [phone] OR call [facility] at [phone] ask to have the doctor supervisor elementary education paged. If you consider this an emergency, dial 9-2-2 or go to your nearest emergency department. NEED HELP? Are you dealing with a violent or abusive relationship? Are you a victim of rape or sexual assult? Call [facility] ([facility] 24 hour Crisis Hotline: 188.818.4640 or 176-435-3977. MANUAL Your Guide to a Healthy manual is now on-line. Visit [email or web address] to download your free copy documented in this encounterSelect Medical Specialty [facility]05-04-2023 Miscellaneous Notes* Quick Notes - Brijesh Biswas MD - 10/03/2022 2:59 PM EDT KJ - No VB/LOF/ctxs. Reports good FM. A&P: Reviewed PTL & FM precautions Brijesh Biswas MD documented in this encounterSelect Medical Specialty [facility]05-04-2023 Instructions* Patient Instructions* Luciana Al Ma - 10/03/2022 2:37 PM EDT SEQUENTIAL SCREENINGS The [facility] offers sequential screenings for women who are [...] testing. It will require an appointment withour agricultural service technician. This is not an ultrasound performed [...] the above symptoms, contact our office at [phone] and ask to speak with anurse. After hours, you can call doctors registry at [phone] OR call [facility] at [phone] ask to have the doctor supervisor elementary education paged. If you consider this an emergency, dial 9--1 or go to your nearest emergency department. NEED HELP? Are you dealing with a violent or abusive relationship? Are you a victim of rape or sexual assult? Call [facility] ([place]) 24 hour Crisis Hotline: 489.459.9613 or 273-129-4022. MANUAL Your Guide to a Healthy manual is now on-line. Visit [email or web address] to download your free copy documented in this encounterSelect Medical Specialty [facility]04-21-2023 Miscellaneous Notes* Quick Notes - Brijesh Biswas MD - 09/20/2022 11:12 AM EDT KJ - No VB/LOF/ctxs. Reports good FM. A&P: 28wk labs Tdap PPBC - declines LARC. considering vasectomy. Reviewed PTL & FM precautions Brijesh Biswas MD documented in this encounterSelect Medical Specialty [facility]04-21-2023 History of Present illness Narrative* Cecelia Pardo [...] severely ill: Yes Patient denies history of Guillain-[place] Syndrome (a severe paralytic illness): Yes Tdap Adacel injection was given without incident. See immunizations for details of immunizations administered today. VIS sheet provided: Yes Provider Dr Biswas was present in office at time of injection. Cecelia Pardo Ma documented in this encounterSelect Medical Specialty [facility]04-21-2023 Instructions* Patient Instructions* Cecelia Pardo Ma - 09/20/2022 10:55 AM EDT SEQUENTIAL SCREENINGS The [facility] offers sequential screenings for women who are [...] testing. It will require an appointment withour agricultural service technician. This is not an ultrasound performed [...] the above symptoms, contact our office at [phone] and ask to speak with anurse. After hours, you can call doctors registry at [phone] OR call [facility] at [phone] ask to have the doctor supervisor elementary education paged. If you consider this an emergency, dial 9-1- or go to your nearest emergency department. NEED HELP? Are you dealing with a violent or abusive relationship? Are you a victim of rape or sexual assult? Call [facility] [place] ([place]) 24 hour Crisis Hotline: 593.606.7213 or 008-146-3113. MANUAL Your Guide to a Healthy manual is now on-line. Visit [email or web address] to download your free copy documented in this encounterSelect Medical Specialty [facility]04-06-2023 Miscellaneous Notes* Quick Notes - Karoline Bautista [...] . Karoline Bautista M.D. documented in this encounterSelect Medical Specialty [facility]04-06-2023 Instructions* Patient Instructions* Seema Rose MA - 09/05/2022 9:44 AM EDT SEQUENTIAL SCREENINGS The [facility] offers sequential screenings for women who are [...] testing. It will require an appointment withour agricultural service technician. This is not an ultrasound performed [...] the above symptoms, contact our office at [phone] and ask to speak with anurse. After hours, you can call doctors registry at [phone] OR call [facility] at [phone] ask to have the doctor supervisor elementary education paged. If you consider this an emergency, dial 9-1-1 or go to your nearest emergency department. NEED HELP? Are you dealing with a violent or abusive relationship? Are you a victim of rape or sexual assult? Call [facility] ([place]) 24 hour Crisis Hotline: 211.282.6429 or 967-438-1905. MANUAL Your Guide to a Healthy manual is now on-line. Visit [email or web address] to download your free copy documented in this encounterSelect Medical Specialty [facility]03-29-[address] Ferris [facility] August 28, 2022 8:05pm Note Date/Time August 28, 2022 7:0 0pm [facility] Medical Records Department [address] [place] [address] Emergency Department Summary 08/28/22 MR#: [id number] Acct: [id number] Name: RAMONA WAHL Rep #:[id number] : 1990 32 From: Lucas Ferris DO PCP: Care Physician,No Primary Status :[facility] ER Location: ED HPI History of [...] sick contacts the patient is aware of. [facility] Medical History Migraines Home Medications cephalexin 500 mg capsule 500 mg PO Q12 #10 CAPSULES 08/28/22 [Rx Last Taken Unknown] ondansetron 4 mg disintegrating tablet 4 mg PO Q8H PRN PRN Nausea #10 tabs 08/28/22 [Rx Last Taken Unknown] promethazine 25 mg rectal suppository 25 mg GA Q6H #6 ea 08/28/22 [Rx Last Taken [...] Ox 97 Oxygen Delivery Method Room Air [facility] Lab Data Labs: Laboratory Results - last 24 hr 08/28/22 08/28/22 08/28/22 18:15 18:15 19:30 WBC 6.8 RBC 4.41 Hgb 14.2 Hct 41.7 MCV 94.6 MCH 32.2 H MCHC 34.1 RDW Std Deviation 48.2 H RDW Coeff of Haresh 13.8 Plt Count 234 MPV 9.5 Immature Gran % (Auto) 1.300 H Neut % (Auto) 74.4 H Lymph % (Auto) 13.5 L [place] % (Auto) 9.8 Eos % (Auto) 0.4 [...] Clarity Clear Urine pH 6.0 Ur Specific [place] 1.025 Urine Protein 30 H Urine Glucose [...] New promethazine 25 mg suppository 25 mg GA Q6H Qty: 6 0RF ondansetron 4 mg [...] Gatorade or Powerade. Increase water. Follow-up with ELEPHANT KEEPER. Disposition Disposition: Home, Self Care What to do if you have Problems For any increased pain, shortness of breath, bleeding, nausea or vomiting, chestpain, or any unexpected problems, contact your Primary Care Provider. Call Doctors Registry ([phone]) or report to the closest Emergency Room. Call 911 if necessary. 08/28/222004 <Electronically signed by Lucas Ferris DO> Cosigner Signature (if applicable): CC: No Primary Care Physician ~ Signed [facility] Work Phone: 1(133) 363-861203-29-2023 Miscellaneous Notes* Telephone Encounter - Crystal Hurtado [...] appointment. JINA Chacon RN documented in this encounterSelect Medical Specialty [facility]02-06-2023 Miscellaneous Notes* Telephone Encounter - Haritha Marie RN - 07/08/2022 12:19 PM EST Order signed and faxed. Haritha Marie RN * Telephone Encounter - Ana Chacon RN - 07/05/2022 10:44 AM EST Received breast pump order from [employer]. To SW to sign. Ana Chacon RN documented in this encounterSelect Medical Specialty [facility]01-06-2023 Miscellaneous Notes* Quick Notes - Brijesh Biswas MD - 06/07/2022 8:40 AM EST KJ - No VB/LOF/ctxs. Reports morning nausea with some emesis. Tolerating PO later in the day. The phenergan makes her drowsy. A&P: Nausea - advised on regular snacking. Rx zofran given. Declines aneupoldy screening Anatomy US ordered Brijesh Biswas MD documented in this encounterSelect Medical Specialty [facility]01-06-2023 Instructions* Patient Instructions* Luciana Al Ma - 06/07/2022 8:16 AM EST SEQUENTIAL SCREENINGS The [facility] offers sequential screenings for women who are [...] testing. It will require an appointment withour agricultural service technician. This is not an ultrasound performed [...] the above symptoms, contact our office at [phone] and ask to speak with anurse. After hours, you can call doctors registry at [phone] OR call [facility] at [phone] ask to have the doctor supervisor elementary education paged. If you consider this an emergency, dial 3-4-1 or go to your nearest emergency department. NEED HELP? Are you dealing with a violent or abusive relationship? Are you a victim of rape or sexual assult? Call [facility] ([place]) 24 hour Crisis Hotline: 257.553.9291 or 701-454-1776. MANUAL Your Guide to a Healthy manual is now on-line. Visit [email or web address] to download your free copy documented in this encounterSelect Medical Specialty [facility]12-15-2022 Miscellaneous Notes* Telephone Encounter - Haritha Marie RN - 05/16/2022 2:54 PM EST Subject of Swidjit message is VisConPro screen. Message sent to patient. Haritha Marie RN * Telephone Encounter - Phillip Castro MD - 05/16/2022 2:43 PM EST Please call pt and clarify what test she wants. She had declined aneuploidy and carrier screening at [facility]. Looks like when she had her PNOB she was considering aneuploidy screening so she may be asking about NIPT. If she desires NIPT she will need NT around 12 weeks. Thanks * Telephone Encounter - Izabela Link LPN - 05/16/2022 2:08 PM EST Please see pt's mychart message and further advise. Izabela Link LPN documented [facility] History of Present illness Narrative* Phillip Castro [...] Folic acid: Yes Occupation: working from home Anglican or heritage: No Would refuse blood transfusion if medically necessary: No BMI 19.77 kg/(m^2) Patient BMI over 30? 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 Phillip Castro DO documented in this encounter[facility] Instructions* Patient Instructions* Seema Rose MA - 05/10/2022 11:22 AM EST Please select the following link to access the [facility] Your Guide to a Healthy . [email or web address] documented in this encounter[facility]-2022 Miscellaneous Notes* Telephone Encounter - Gisel Khan [...] advise. Ana Chacon RN documented in this encounter[facility]12-[facility]-2022 Miscellaneous Notes* Quick Notes - Katherin Shin [...] screening testing.Katherin Shin RN documented in this encounter[facility]12-[facility]-2022 History of Present illness Narrative* Katherin Shin [...] Living: None, Comments: None documented in this encounter[facility]-07-2022 Miscellaneous Notes* Telephone Encounter - Haritha Marie RN - 04/08/2022 12:02 PM EST Received records from [facility]. In PNOB mailbox for 05/02/22 PNOB appointment. Haritha Marie RN documented in this encounter[facility]-04-2022 Miscellaneous Notes* Telephone Encounter - Ana Chacon RN - 04/05/2022 3:00 PM EDT Received outside medical records from [facility]. To SW to review. Ana Chacon RN documented in this encounter[facility]10-31-2022 History of Present illness Narrative* Phillip Castro MD - 04/01/2022 9:19 AM EDT Ramona is a 31 year old who presents for an annual gynecologic exam without complaints. Just moved to [place] with . Desires . H/o hyperemesis. Reports [...] L0 SAB0 IAB0 Ectopic0 Multiple0 Live Births0 Grade Recorder History LMP: 03/05/2022 (Exact Date), Having periods Age at Menarche: Age at First : Age at Menopause: Grade Recorder History Comments: Sexual Activity: Yes; Male Contraception: [...] external genitalia normal, normal Bartholin's glands, urethra, [place]'s glands, no vulvar lesions, no cervical lesions, [...] needed Phillip Castro DO documented in this encounterSelect [facility]12-[facility]-2021 History of Present illness Narrative* 31F who [...] * Patient is wishing to get soon [facility] Work Phone: 1(596) 461-665912-08-2021 History of Present illness Narrative* 31F who [...] * Patient is wishing to get soon [facility] Work Phone: 1(645) 119-646212-04-2021 History of Present illness Narrative* 31F who [...] * Patient is wishing to get soon [facility] Work Phone: 1(509) 168-750607-01-2021 History of Present illness Narrative* Ramona Wahl [...] environmental t * Surgeries: none * gallbladder-cystectomy [facility] Work Phone: 1(396) 166-422607-01-2021 History of Present illness Narrative* Ramona Wahl [...] environmental t * Surgeries: none * gallbladder-cystectomy [facility] Work Phone: 1(247) 605-828807-01-2020 History of Past illness Narrative* Problem Noted Date Resolved Date Nausea and vomiting during 12/01/2019 07/19/2022 Overview: - Transfer from [place] [facility] - S/p 2L IVF, Zofran, Reglan [...] of this encounter (statuses as of 08/28/2022) [facility] History of Past illness Narrative* Problem Noted Date Resolved Date Nausea and vomiting during 12/01/2019 07/19/2022 Overview: - Transfer from [place] [facility] - S/p 2L IVF, Zofran, Reglan [...] of this encounter (statuses as of 09/05/2022) [facility] History of Past illness Narrative* Problem Noted Date Resolved Date Nausea and vomiting during 12/01/2019 07/19/2022 Overview: - Transfer from [place] [facility] - S/p 2L IVF, Zofran, Reglan [...] of this encounter (statuses as of 09/09/2022) [facility] History of Past illness Narrative* Problem Noted Date Resolved Date Nausea and vomiting during 12/01/2019 07/19/2022 Overview: - Transfer from [place] [facility] - S/p 2L IVF, Zofran, Reglan [...] of this encounter (statuses as of 09/20/2022) [facility] History of Past illness Narrative* Problem Noted Date Resolved Date Nausea and vomiting during 12/01/2019 07/19/2022 Overview: - Transfer from [place] [facility] - S/p 2L IVF, Zofran, Reglan [...] of this encounter (statuses as of 10/04/2022) [facility] History of Past illness Narrative* Problem Noted Date Resolved Date Nausea and vomiting during 12/01/2019 07/19/2022 Overview: - Transfer from [place] [facility] - S/p 2L IVF, Zofran, Reglan [...] of this encounter (statuses as of 11/04/2022) [facility] History of Past illness Narrative* Problem Noted Date Resolved Date Nausea and vomiting during 12/01/2019 07/19/2022 Overview: - Transfer from [place] [facility] - S/p 2L IVF, Zofran, Reglan [...] of this encounter (statuses as of 11/19/2022) [facility] History of Past illness Narrative* Problem Noted Date Resolved Date Nausea and vomiting during 12/01/2019 07/19/2022 Overview: - Transfer from [place] [facility] - S/p 2L IVF, Zofran, Reglan [...] of this encounter (statuses as of 11/26/2022) [facility] History of Past illness Narrative* Problem Noted Date Diagnosed Date Resolved Date Nausea and vomiting during 12/01/2019 07/19/2022 Overview: - Transfer from [place] [facility] - S/p 2L IVF, Zofran, Reglan [...] of this encounter (statuses as of 12/09/2022) [facility] History of Past illness Narrative* Problem Noted Date Diagnosed Date Resolved Date Nausea and vomiting during 12/01/2019 07/19/2022 Overview: - Transfer from [place] [facility] - S/p 2L IVF, Zofran, Reglan [...] of this encounter (statuses as of 12/13/2022) [facility] History of Past illness Narrative* Problem Noted Date Diagnosed Date Resolved Date Nausea and vomiting during 12/01/2019 07/19/2022 Overview: - Transfer from [place] [facility] - S/p 2L IVF, Zofran, Reglan [...] of this encounter (statuses as of 12/17/2022) [facility] History of Past illness Narrative* Problem Noted Date Diagnosed Date Resolved Date Nausea and vomiting during 12/01/2019 07/19/2022 Overview: - Transfer from [place] [facility] - S/p 2L IVF, Zofran, Reglan [...] of this encounter (statuses as of 01/08/2023) [facility] complaint Narrative - ReportedEvaluation of ruq pain, gallbladder.[facility] Work Phone: chief complaint Narrative - ReportedEvaluation of ruq pain, gallbladder.[facility] Work Phone: evaluation note* Diagnosis Encounter for gynecological examination without abnormal finding- Primary Routine gynecological examination Encounter for screening for malignant neoplasm of cervix Screening for malignant neoplasm of the cervix documented in this encounter [facility]* Diagnosis Supervision of with history of infertility, antepartum- Primary related nausea, antepartum Mild hyperemesis gravidarum, antepartum History of anxiety Personal history of other mental disorder History of hypothyroidism Personal history of other endocrine, metabolic, and immunity disorders documented in this encounter [facility]* Diagnosis Encounter for supervision of other normal in first trimester- Primary 9 weeks gestation of state, incidental documented in this encounter [facility]* Diagnosis Encounter for supervision of other normal in first trimester- Primary 13 weeks gestation of state, incidental documented in this encounter [facility]ullEvaluation noteNo assessment information availableWSouthwest General [facility] Work Phone: Evalutrinity health note* Diagnosis 26 weeks gestation of - Primary state, incidental Encounter for supervision of other normal in second trimester documented in this encounter [facility]* Diagnosis Encounter for supervision of other normal in third trimester- Primary 28 weeks gestation of state, incidental Need for vaccination Need for prophylactic vaccination and inoculation against unspecified single disease documented in this encounter [facility]* Diagnosis Supervision of with history of infertility, antepartum- Primary 30 weeks gestation of state, incidental documented in this encounter [facility]* Diagnosis 34 weeks gestation of - Primary state, incidental Supervision of with history of infertility, antepartum [facility] Diagnosis 36 weeks gestation of - Primary state, incidental documented in this encounter [facility]* Diagnosis 37 weeks gestation of - Primary state, incidental [facility]* Diagnosis Supervision of with history of infertility, antepartum- Primary 39 weeks gestation of state, incidental documented in this encounter [facility]* Diagnosis Supervision of with history of infertility, antepartum- Primary 40 weeks gestation of state, incidental [facility]* Diagnosis Supervision of with history of infertility, antepartum- Primary 40 weeks gestation of state, incidental documented in this encounter [facility]* Diagnosis state- Primary Routine follow-up documented [facility]* Diagnosis Encounter for gynecological examination (general) (routine) without abnormal findings- Primary documented in this encounter [facility]* Diagnosis Impacted cerumen of left ear- Primary Impacted cerumen documented in this encounter [facility] Work Phone: Evaluation note* Diagnosis Nausea and vomiting in - Primary Unspecified vomiting of , unspecified as to episode of care 7 weeks gestation of state, incidental History of hypothyroidism Personal history of other endocrine, metabolic, and immunity disorders [facility]* Diagnosis with uncertain dates, antepartum- Primary state, incidental 8 weeks gestation of state, incidental Screen for STD (sexually transmitted disease) Screening examination for venereal disease Screening for cervical cancer Screening for malignant neoplasm of the cervix Encounter for supervision of normal intrauterine in multigravida, antepartum Hyperemesis of Mild hyperemesis gravidarum, unspecified as to episode of care documented in this encounter [facility] note* Diagnosis Encounter for medical examination to establish care- Primary documented in [facility]* Diagnosis Encounter for screening for malformation using ultrasound- Primary 12 weeks gestation of state, incidental [facility]* Diagnosis Encounter for supervision of other normal in second trimester- Primary 12 weeks gestation of state, incidental History of anxiety Personal history of other mental disorder History of hypothyroidism Personal history of other endocrine, metabolic, and immunity disorders related nausea, antepartum Mild hyperemesis gravidarum, antepartum [facility]* Diagnosis Encounter for supervision of normal intrauterine in multigravida, antepartum ([facility])- Primary Encounter for supervision of other normal in second trimester ([facility])- Primary 20 weeks gestation of ([facility]) state, incidental History of hypothyroidism Personal history of other endocrine, metabolic, and immunity disorders History of anxiety Personal history of other mental disorder documented in this encounter [facility]* Diagnosis Encounter for supervision of normal intrauterine in multigravida, antepartum ([facility])- Primary Encounter for anatomic survey ([facility])- Primary Encounter for anatomic survey 21 weeks gestation of ([facility]) state, incidental documented [facility]* Diagnosis Encounter for supervision of normal intrauterine in multigravida, antepartum ([facility])- Primary Encounter for supervision of other normal in second trimester ([facility])- Primary 24 weeks gestation of (HCC) [...] and immunity disorders [facility]* Diagnosis Encounter for supervision of normal intrauterine in multigravida, antepartum (HCC)- Primary 30 weeks gestation of ([facility])- Primary state, incidental Encounter for supervision of other normal in third trimester ([facility]) Bilateral hip pain Pain in joint, pelvic region and thigh [facility] Diagnosis Encounter for supervision of normal intrauterine in multigravida, antepartum ([facility])- Primary 34 weeks gestation of ([facility])- Primary state, incidental Encounter for supervision of other normal in third trimester ([facility]) History of hypothyroidism Personal history of other endocrine, metabolic, and immunity disorders [facility] Diagnosis Encounter for supervision of normal intrauterine in multigravida, antepartum ([facility])- Primary Encounter for supervision of other normal in third trimester ([facility])- Primary 36 weeks gestation of ([facility]) state, incidental History of hypothyroidism Personal history of other endocrine, metabolic, and immunity disorders [facility] Diagnosis Encounter for supervision of normal intrauterine in multigravida, antepartum ([facility])- Primary 37 weeks gestation of ([facility])- Primary state, incidental History of hypothyroidism Personal history of other endocrine, metabolic, and immunity disorders Encounter for supervision of other normal in third trimester ([facility]) [facility] Diagnosis Encounter for supervision of normal intrauterine in multigravida, antepartum ([facility])- Primary Low TSH level- Primary Nonspecific abnormal results of thyroid function study [facility]* Diagnosis Encounter for supervision of normal intrauterine in multigravida, antepartum ([facility])- Primary Encounter for supervision of other normal in third trimester ([facility])- Primary History of hypothyroidism Personal history of other endocrine, metabolic, and immunity disorders 38 weeks gestation of (HCC) state, incidental documented in this encounter [facility] of [facility] illness Narrative* 30 yo female presents for c/o b/l ear fullness x 1 month * Pt denies fevers/chills or ear pain * 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 Patient recently moved to [facility]. surgical pathology revealed a gallbladder with [...] * General and Trauma surgery * Office: [phone] * [facility] Work Phone: Hospital Discharge instructions Additional Instructions Increase fluids at home. Use Keflex for the next 5 days. Use Zofran ODT as needed, also Phenergan suppositories could be used along with Zofran if needed. Increase Gatorade or Powerade. Increase water. Follow-up with [facility]EEPER.[facility] Work Phone: Reason for referral (narrative)* Diagnostic Procedure Only (Routine) - Authorized Specialty Diagnoses / Procedures Referred By Pari sellers Referred To Contact [facility] Diagnoses Encounter for supervision of other normal in first trimester Procedures OBSTETRIC ULTRASOUND WHI US PREG UTERUS AFTER 1ST TRIMEST GESTATION Brijesh Biswas MD [address] [place] [place] [address] [facility] [address] [place] [address] Referral ID Status Reason Start Date Expiration Date Visits Requested Visits Authorized [id number] Authorized Auto-Generat ed Referral 06/07/2022 06/07/2023 1 1 [facility] Summary Purpose Family History No Family History [...] No August 28, 2022 5:59pm Power of Airbrush Artist No August 28 5:59pm Hospital Course * [...] Vivian Rondon MD ([id number]) - Obstetrics and INSTALLATION TECHNICIAN * Follow up with Ordering Physician : 6 * Discharge Physician Specialty : Week(s) * Discharge Physician Phone: : [address] [place] [phone] * Patient stated Primary Care Provider : [...] * Discharge Physician: : Vivian Rondon MD ([id number]) - Obstetrics and INSTALLATION TECHNICIAN * Follow up with Ordering Physician : 6 * Discharge Physician Specialty : Week(s) * Discharge Physician Phone: : [address] [facility] [address] [place] [phone] * Patient stated Primary Care Provider : [...] section and content) DATE CREATED AUTHOR 05/11/2018 [facility] DATE CREATED AUTHOR AUTHOR'S ORGANIZ ATION 05/11/2018 [facility] DATE CREATED AUTHOR AUTHOR'S ORGANIZ ATION 12/23/2019 [facility] DATE CREATED AUTHOR AUTHOR'S ORGANIZ ATION 02/26/2020 [facility] DATE CREATED AUTHOR AUTHOR'S ORGANIZ ATION 07/29/2020 [facility] DATE CREATED AUTHOR AUTHOR'S ORGANIZ ATION 06/08/2021 [facility] DATE CREATED AUTHOR AUTHOR'S ORGANIZ ATION 11/19/2021 [facility] DATE CREATED AUTHOR AUTHOR'S ORGANIZ ATION 12/01/2021 [facility] DATE CREATED AUTHOR AUTHOR'S ORGANIZ ATION 12/07/2021 [facility] DATE CREATED AUTHOR AUTHOR'S ORGANIZ ATION 03/30/2024 [facility] DATE CREATED AUTHOR AUTHOR'S ORGANIZ ATION 08/01/2024 [facility] DATE CREATED AUTHOR AUTHOR'S ORGANIZ ATION 02/17/2025 [facility] Goals (unrecognized section and content) Goals from [...] or prosecute any alcohol or drug abuse patient.[facility] the event this information is protected by the Federal Confidentiality of Alcohol and Drug Abuse Patient Records regulations: The Federal rules restrict any use of the information to criminally investigate or prosecute any alcohol or drug abuse patient.[facility] the event this information is protected by the Federal Confidentiality of Alcohol and Drug Abuse Patient Records regulations: The Federal rules restrict any use of the information to criminally investigate or prosecute any alcohol or drug abuse patient.[facility] the event this information is protected by the Federal Confidentiality of Alcohol and Drug Abuse Patient Records regulations: The Federal rules restrict any use of the information to criminally investigate or prosecute any alcohol or drug abuse patient.[facility] the event this information is protected by the Federal Confidentiality of Alcohol and Drug Abuse Patient Records regulations: The Federal rules restrict any use of the information to criminally investigate or prosecute any alcohol or drug abuse patient.[facility] the event this information is protected by the Federal Confidentiality of Alcohol and Drug Abuse Patient Records regulations: The Federal rules restrict any use of the information to criminally investigate or prosecute any alcohol or drug abuse patient.[facility]ullIn the event this information is protected by [...] or prosecute any alcohol or drug abuse patient.[facility] the event this information is protected by the Federal Confidentiality of Alcohol and Drug Abuse Patient Records regulations: The Federal rules restrict any use of the information to criminally investigate or prosecute any alcohol or drug abuse patient.[facility] the event this information is protected by the Federal Confidentiality of Alcohol and Drug Abuse Patient Records regulations: The Federal rules restrict any use of the information to criminally investigate or prosecute any alcohol or drug abuse patient.[facility]ull[facility] the event this information is protected by the Federal Confidentiality of Alcohol and Drug Abuse Patient Records regulations: The Federal rules restrict any use of the information to criminally investigate or prosecute any alcohol or drug abuse patient.[facility] the event this information is protected by the Federal Confidentiality of Alcohol and Drug Abuse Patient Records regulations: The Federal rules restrict any use of the information to criminally investigate or prosecute any alcohol or drug abuse patient.[facility] the event this information is protected by the Federal Confidentiality of Alcohol and Drug Abuse Patient Records regulations: The Federal rules restrict any use of the information to criminally investigate or prosecute any alcohol or drug abuse patient.[facility] the event this information is protected by the Federal Confidentiality of Alcohol and Drug Abuse Patient Records regulations: The Federal rules restrict any use of the information to criminally investigate or prosecute any alcohol or drug abuse patient.[facility] the event this information is protected by the Federal Confidentiality of Alcohol and Drug Abuse Patient Records regulations: The Federal rules restrict any use of the information to criminally investigate or prosecute any alcohol or drug abuse patient.[facility] [facility] the event this information is protected by the Federal Confidentiality of Alcohol and Drug Abuse Patient Records regulations: The Federal rules restrict any use of the information to criminally investigate or prosecute any alcohol or drug abuse patient.[facility] the event this information is protected by the Federal Confidentiality of Alcohol and Drug Abuse Patient Records regulations: The Federal rules restrict any use of the information to criminally investigate or prosecute any alcohol or drug abuse patient.[facility]ull[facility] the event this information is protected by the Federal Confidentiality of Alcohol and Drug Abuse Patient Records regulations: The Federal rules restrict any use of the information to criminally investigate or prosecute any alcohol or drug abuse patient.[facility] the event this information is protected by the Federal Confidentiality of Alcohol and Drug Abuse Patient Records regulations: The Federal rules restrict any use of the information to criminally investigate or prosecute any alcohol or drug abuse patient.[facility] the event this information is protected by the Federal Confidentiality of Alcohol and Drug Abuse Patient Records regulations: The Federal rules restrict any use of the information to criminally investigate or prosecute any alcohol or drug abuse patient.[facility] the event this information is protected by the Federal Confidentiality of Alcohol and Drug Abuse Patient Records regulations: The Federal rules restrict any use of the information to criminally investigate or prosecute any alcohol or drug abuse patient.[facility] the event this information is protected by the Federal Confidentiality of Alcohol and Drug Abuse Patient Records regulations: The Federal rules restrict any use of the information to criminally investigate or prosecute any alcohol or drug abuse patient.[facility] the event this information is protected by the Federal Confidentiality of Alcohol and Drug Abuse Patient Records regulations: The Federal rules restrict any use of the information to criminally investigate or prosecute any alcohol or drug abuse patient.[facility] the event this information is protected by the Federal Confidentiality of Alcohol and Drug Abuse Patient Records regulations: The Federal rules restrict any use of the information to criminally investigate or prosecute any alcohol or drug abuse patient.[facility] the event this information is protected by the Federal Confidentiality of Alcohol and Drug Abuse Patient Records regulations: The Federal rules restrict any use of the information to criminally investigate or prosecute any alcohol or drug abuse patient.[facility] the event this information is protected by the Federal Confidentiality of Alcohol and Drug Abuse Patient Records regulations: The Federal rules restrict any use of the information to criminally investigate or prosecute any alcohol or drug abuse patient.[facility] the event this information is protected by the Federal Confidentiality of Alcohol and Drug Abuse Patient Records regulations: The Federal rules restrict any use of the information to criminally investigate or prosecute any alcohol or drug abuse patient.[facility] the event this information is protected by the Federal Confidentiality of Alcohol and Drug Abuse Patient Records regulations: The Federal rules restrict any use of the information to criminally investigate or prosecute any alcohol or drug abuse patient.[facility] [place] the event this information is protected by the Federal Confidentiality of Alcohol and Drug Abuse Patient Records regulations: The Federal rules restrict any use of the information to criminally investigate or prosecute any alcohol or drug abuse patient.[facility] [place] the event this information is protected by the Federal Confidentiality of Alcohol and Drug Abuse Patient Records regulations: The Federal rules restrict any use of the information to criminally investigate or prosecute any alcohol or drug abuse patient.[facility] [place] the event this information is protected by the Federal Confidentiality of Alcohol and Drug Abuse Patient Records regulations: The Federal rules restrict any use of the information to criminally investigate or prosecute any alcohol or drug abuse patient.[facility] [place] the event this information is protected by the Federal Confidentiality of Alcohol and Drug Abuse Patient Records regulations: The Federal rules restrict any use of the information to criminally investigate or prosecute any alcohol or drug abuse patient.[facility]ullIn the event this information is protected by the Federal Confidentiality of Alcohol and Drug Abuse Patient Records regulations: The Federal rules restrict any use of the information to criminally investigate or prosecute any alcohol or drug abuse patient.[facility] [place]ull[facility] the event this information is protected by the Federal Confidentiality of Alcohol and Drug Abuse Patient Records regulations: The Federal rules restrict any use of the information to criminally investigate or prosecute any alcohol or drug abuse patient.[facility] [place] the event this information is protected by the Federal Confidentiality of Alcohol and Drug Abuse Patient Records regulations: The Federal rules restrict any use of the information to criminally investigate or prosecute any alcohol or drug abuse patient.[facility] [place] the event this information is protected by the Federal Confidentiality of Alcohol and Drug Abuse Patient Records regulations: The Federal rules restrict any use of the information to criminally investigate or prosecute any alcohol or drug abuse patient.[facility] [place] the event this information is protected by the Federal Confidentiality of Alcohol and Drug Abuse Patient Records regulations: The Federal rules restrict any use of the information to criminally investigate or prosecute any alcohol or drug abuse patient.[facility] [place]ullIn the event this information is protected by the Federal Confidentiality of Alcohol and Drug Abuse Patient Records regulations: The Federal rules restrict any use of the information to criminally investigate or prosecute any alcohol or drug abuse patient.[facility] [place]In the event this information is protected by the Federal Confidentiality of Alcohol and Drug Abuse Patient Records regulations: The Federal rules restrict any use of the information to criminally investigate or prosecute any alcohol or drug abuse patient.[facility] [place]ullIn the event this information is protected by the Federal Confidentiality of Alcohol and Drug Abuse Patient Records regulations: The Federal rules restrict any use of the information to criminally investigate or prosecute any alcohol or drug abuse patient.[facility] [place]ullIn the event this information is protected by the Federal Confidentiality of Alcohol and Drug Abuse Patient Records regulations: The Federal rules restrict any use of the information to criminally investigate or prosecute any alcohol or drug abuse patient.[facility] [place]ullIn the event this information is protected by the Federal Confidentiality of Alcohol and Drug Abuse Patient Records regulations: The Federal rules restrict any use of the information to criminally investigate or prosecute any alcohol or drug abuse patient.[facility] [place]ullIn the event this information is protected by the Federal Confidentiality of Alcohol and Drug Abuse Patient Records regulations: The Federal rules restrict any use of the information to criminally investigate or prosecute any alcohol or drug abuse patient.[facility] [place]ullIn the event this information is protected by the Federal Confidentiality of Alcohol and Drug Abuse Patient Records regulations: The Federal rules restrict any use of the information to criminally investigate or prosecute any alcohol or drug abuse patient.[facility] [place]ullIn the event this information is protected by the Federal Confidentiality of Alcohol and Drug Abuse Patient Records regulations: The Federal rules restrict any use of the information to criminally investigate or prosecute any alcohol or drug abuse patient.[facility] [place]ullIn the event this information is protected by the Federal Confidentiality of Alcohol and Drug Abuse Patient Records regulations: The Federal rules restrict any use of the information to criminally investigate or prosecute any alcohol or drug abuse patient.[facility] [place] Reason for Visit (unrecogniz ed section and [...] Referred By Contac t Referred To Contact [facility] Diagnoses with uncertain dates, antepartum 8 weeks gestation of Screen for STD (sexually transmitted disease) Procedures OBSTETRIC ULTRASOUND WHI US PREG UTERUS AFTER 1ST TRIMEST GESTATION Marielle Jiménez, FRED.HOSPITAL CLEANER [address] [place] [address] Phone: tel: fax: [facility] [address] [place] [address] Referral ID Status Reason Start Date Expiration Date V isits Requested Visits Authorized [id number] Closed Auto-Generate d Referral 07/20/2024 07/20/2025 1 1 Reason Onset Date Comments Care 08/17/2024 Reason Comments breast pump Reason Onset Date Comments Care 10/13/2024 Specialty Diagnoses / Procedures Referred By Contac t Referred To Contact [facility] Diagnoses with uncertain dates, antepartum (HCC) 8 weeks gestation of (HCC) Screen for STD (sexually transmitted disease) Procedures OBSTETRIC ULTRASOUND WHI US PREG UTERUS AFTER 1ST TRIMEST GESTATION Marielle Jiménez APRN.HOSPITAL CLEANER [address] [place] [address] Phone: tel: fax: [facility] [address] [place] [address] Referral ID Status Reason Start Date Expiration Date V isits Requested Visits Authorized [id number] Closed Auto-Generate d Referral 07/20/2024 07/20/2025 1 [...] Care Teams (unrecognized sec tion and content) Front Worker Relationship Specialty Start Date End Date Ana Boateng CNP PCP - General Family Medicine 02/25/20 Front Worker Relationship Specialty Start Date End Date Ana Boateng CNP PCP - General Family Medicine 02/25/20 Front Worker Relationship Specialty Start Date End Date Ana Boateng CNP PCP - General Family Medicine 02/25/20 Front Worker Relationship Specialty Start Date End Date Ana Boateng CNP PCP - General Family Medicine 02/25/20 Front Worker Relationship Specialty Start Date End Date Ana Boateng CNP PCP - General Family Medicine 02/25/20 Front Worker Relationship Specialty Start Date End Date Ana Boateng CNP PCP - General Family Medicine 02/25/20 Front Worker Relationship Specialty Start Date End Date Ana Boateng CNP PCP - General Family Medicine 02/25/20 Front Worker Relationship Specialty Start Date End Date Ana Boateng CNP PCP - General Family Medicine 02/25/20 Front Worker Relationship Specialty Start Date End Date Ana Boateng CNP PCP - General Family Medicine 02/25/20 Front Worker Relationship Specialty Start Date End Date Ana Boateng CNP PCP - General Family Medicine 02/25/20 Team Status: Active Member Role Status Dates Out of [facility] Doctor Family Provider Active No Primary Care Physician Primary Care Provider Active Team Status: Inactive Member Role Status Dates Dr. Lucas Ferris , DO Emergency Provider Active No Primary Care Physician Primary Care Provider Active Front Worker Relationship Specialty Start Date End Date Ana Boateng CNP PCP - General Family Medicine 02/25/20 Front Worker Relationship Specialty Start Date End Date Ana Boateng CNP PCP - General Family Medicine 02/25/20 Front Worker Relationship Specialty Start Date End Date Ana Boateng CNP PCP - General Family Medicine 02/25/20 Front Worker Relationship Specialty Start Date End Date Ana Boateng CNP PCP - General Family Medicine 02/25/20 Front Worker Relationship Specialty Start Date End Date Ana Boateng CNP PCP - General Family Medicine 02/25/20 Front Worker Relationship Specialty Start Date End Date Ana Boateng CNP PCP - General Family Medicine 02/25/20 Front Worker Relationship Specialty Start Date End Date Ana Boateng CNP PCP - General Family Medicine 02/25/20 Front Worker Relationship Specialty Start Date End Date Mindy BoatengferBECCA PCP - General Family Medicine 02/25/20 Front Worker Relationship Specialty Start Date End Date Ana Boateng CNP PCP - General Family Medicine 02/25/20 Front Worker Relationship Specialty Start Date End Date Generic Provider, No [place] [address] PCP - General Customer Success Director 02/10/24 Front Worker Relationship Specialty Start Date End Date Ana Boateng CNP PCP - General Family Medicine 02/25/20 Front Worker Relationship Specialty Start Date End Date Ana Boateng CNP PCP - General Family Medicine 02/25/20 Front Worker Relationship Specialty Start Date End Date Ana Boateng CNP PCP - General Family Medicine 02/25/20 Front Worker Relationship Specialty Start Date End Date Alfredo Duran MD [address] [place], [place] [address] PCP - General Family Medicine 08/17/24 Jeannie Taylor APRN.CNP [address] [place], [place] [address] Family Medicine 08/17/24 Front Worker Relationship Specialty Start Date End Date Alfredo Duran MD [address] [facility] [address] PCP - General Family Medicine 08/17/24 Podlogar, FRED Dennis.HOSPITAL CLEANER [address] [facility] [address] Family Medicine 08/17/24 Front Worker Relationship Specialty Start Date End Date Alfredo Duran MD [address] [facility] [place] [address] PCP - General Family Medicine 08/17/24 Podlogar, MAGDI DennisN.HOSPITAL CLEANER [address] [place] [address] Family Medicine 08/17/24 Front Worker Relationship Specialty Start Date End Date Ana Boateng CNP PCP - General Family Medicine 02/25/20 08/16/24 Alfredo Duran MD [address] [place] [address] PCP - General Family Medicine 08/17/24 Podlogar, Jeannie COMMUNICATIONS PROFESSIONAL.HOSPITAL CLEANER [address] [place] [address] Family Medicine 08/17/24 Podlogar, Jeannie COMMUNICATIONS PROFESSIONAL.HOSPITAL CLEANER [address] [facility] [address] [facility] Family Medicine 08/23/24 Jasmina Leo APRN.HOSPITAL CLEANER [address] [place] [address] [facility] Family Medicine 08/23/24 Front Worker Relationship Specialty Start Date End Date Alfredo Duran MD [address] [facility] [address] PCP - General Family Medicine 08/17/24 Podlogar, Jeannie, COMMUNICATIONS PROFESSIONAL.HOSPITAL CLEANER [address] [place] [address] Family Medicine 08/17/24 Podlogar, Jeannie COMMUNICATIONS PROFESSIONAL.HOSPITAL CLEANER [address] [place] [address] [facility] Family Medicine 08/23/24 Jasmina Leo APRN.HOSPITAL CLEANER [address] [place] [address] [facility] Family Medicine 08/23/24 Front Worker Relationship Specialty Start Date End Date Alfredo Duran MD [address] [place] [address] PCP - General Family Medicine 08/17/24 Podlogar, Jeannie, COMMUNICATIONS PROFESSIONAL.HOSPITAL CLEANER [address] [place] [address] Family Medicine 08/17/24 Podlogar, Jeannie, COMMUNICATIONS PROFESSIONAL.HOSPITAL CLEANER [address] [place] [address] [facility] Family Medicine 08/23/24 Jasmina Leo APRN.HOSPITAL CLEANER [address] [place] [address] [facility] Family Medicine 08/23/24 Front Worker Relationship Specialty Start Date End Date Alfredo Duran MD [address] [place] [address] PCP - General Family Medicine 08/17/24 Podlogar, Jeannie, COMMUNICATIONS PROFESSIONAL.HOSPITAL CLEANER [address] [place] [address] Family Medicine 08/17/24 Podlogar, Jeannie, COMMUNICATIONS PROFESSIONAL.HOSPITAL CLEANER [address] [place] [address] [facility] Family Medicine 08/23/24 Jasmina Leo COMMUNICATIONS PROFESSIONAL.HOSPITAL CLEANER [address] [place] [address] [facility] 08/23/24 Front Worker Relationship Specialty Start Date End Date Alfredo Duran MD [address] [place] [address] PCP - General Family Medicine 08/17/24 Podlogar, Jeannie, COMMUNICATIONS PROFESSIONAL.HOSPITAL CLEANER [address] [place] [address] Family Medicine 08/17/24 Podlogar, Jeannie, COMMUNICATIONS PROFESSIONAL.HOSPITAL CLEANER [address] [place] [address] [facility] Medicine 08/23/24 Front Worker Relationship Specialty Start Date End Date Alfredo Duran MD [address] [facility] [place] [address] PCP - General Family Medicine 08/17/24 Podlogar, Jeannie, COMMUNICATIONS PROFESSIONAL.HOSPITAL CLEANER [address] [place] [address] Family Medicine 08/17/24 PodlogarJeannie APRN.HOSPITAL CLEANER [address] [place] [address] [facility] Medicine 08/23/24 Jasmina Leo APRN.HOSPITAL CLEANER [address] [place] [address] [facility] Medicine 11/11/24 Front Worker Relationship Specialty Start Date End Date Alfredo Duran MD [address] [place] [address] PCP - General Family Medicine 08/17/24 Podlogar, FRED Dennis.HOSPITAL CLEANER [address] [place] [address] Family Medicine 08/17/24 PodlogarJeannie APRN.HOSPITAL CLEANER [address] [place] [address] [facility] Family Medicine 08/23/24 Jasmina Leo APRN.HOSPITAL CLEANER [address] [place] [address] [facility] Medicine 11/11/24 Front Worker Relationship Specialty Start Date End Date Alfredo Duran MD [address] [place] [address] PCP - General Family Medicine 08/17/24 Podlogar, Jeannie, COMMUNICATIONS PROFESSIONAL.HOSPITAL CLEANER [address] [place] [address] Family Medicine 08/17/24 Podlogar, Jeannie COMMUNICATIONS PROFESSIONAL.HOSPITAL CLEANER [address] [place] [address] [facility] 08/23/24 Jasmina Leo, COMMUNICATIONS PROFESSIONAL.HOSPITAL CLEANER [address] [place] [address] [facility] 11/11/24 Front Worker Relationship Specialty Start Date End Date Alfredo Duran MD [address] [place] [address] PCP - General Family Medicine 08/17/24 Podlogar, Jeannie, COMMUNICATIONS PROFESSIONAL.HOSPITAL CLEANER [address] [place] [address] Family Medicine 08/17/24 Podlogar, Jeannie, COMMUNICATIONS PROFESSIONAL.HOSPITAL CLEANER [address] [place] [address] [facility] Medicine 08/23/24 Jasmina Leo, COMMUNICATIONS PROFESSIONAL.HOSPITAL CLEANER [address] [place] [address] [facility] 11/11/24 Front Worker Relationship Specialty Start Date End Date Alfredo Duran MD [address] [place] [address] PCP - General Family Medicine 08/17/24 Podlogar, Jeannie, COMMUNICATIONS PROFESSIONAL.HOSPITAL CLEANER [address] [place] [address] Family Medicine 08/17/24 Jeannie Taylor APRN.HOSPITAL CLEANER [address] [facility], [place] [address] [facility] 08/23/24 Jasmina Leo APRN.HOSPITAL CLEANER [address] [facility], [place] [address] [facility] 11/11/24 Front Worker Relationship Specialty Start Date End Date Alfredo Duran MD [address] [facility], [place] [address] PCP - General Family Medicine 08/17/24 Jeannie Taylor APRN.HOSPITAL CLEANER [address] [facility], [place] [address] Family Medicine 08/17/24 Jeannie Taylor APRN.HOSPITAL CLEANER [address] [facility], [place] [address] [facility] 08/23/24 Jasmina Leo APRN.HOSPITAL CLEANER [address] [facility], [place] [address] [facility] 11/11/24 FOR RECORDS PERTAINING TO PATIENTS WHO [...] BE BASED ON THE PRIMARY CLINICAL RECORDS. [facility] provides no warranty or guarantee of the accuracy or completeness of information in this document.
--- OUTSIDE RECORDS SUMMARY | 2025-02-20 12:36 | XMS RPT_ITS | CCD ---
Author Organization [facility] Care Team Providers Care Exchange Specialist Name Role Phone KALYAN, PAULETTE B Unavailable Unavailable KALYAN, PAULETTE B Unavailable Unavailable KALYAN, PAULETTE B Unavailable Unavailable KALYAN, PAULETTE B Unavailable Unavailable KALYAN, PAULETTE B Unavailable Unavailable KALYAN, PAULETTE B Unavailable Unavailable Sulove, Saksham Unavailable Unavailable KALYAN, PAULETTE B Unavailable Unavailable KALYAN, PAULETTE B Unavailable Unavailable KALYAN, PAULETTE B Unavailable Unavailable KALYAN, PAULETTE B Unavailable Unavailable Ana Boateng Unavailable [phone] Unavailable Unavailable Frida Lieberman Unavailable Unavailable Unavailable Unavailable Unavailable None, No PCP Unavailable Unavailable Ana Boateng CNP Primary Care Provider [phone] Ana Boateng CNP Primary Care Provider [phone] Ana Boateng CNP Primary Care Provider Generic Provider MD, No Assigned Pcp Primary Car e Provider Unavailable CASTRO [facility] Attending Unavailable GENERIC PROVIDER, NO ASSIGNED PCP Primary Care Unavailable Maxim Francisco Attending Unavailable Care Physician, No Primary Primary Care Unava ilAlfredo Verma MD Primary Care Provider Podlogar BOARD MEMBER.Jeannie HUDSON Unavailable Ana Boateng CNP Primary Care Provider Podlogar BOARD MEMBER.Jeannie HUDSON Unavailable Ahmet BOARD MEMBER.Jasmina HUDSON Unavailable Ahmet BOARD MEMBER.Jasmina HUDSON Unavailable BURSLEY, CHRISTOPHER B Primary Care [...] Unavailable BURSLEY, CHRISTOPHER B Primary Care Unavailab kaelb PODLOGJEANNIE STEWART Attending Unavailable BURSLEY, CHRISTOPHER B [...] Propensity to adverse reactions to drug (disorder) [facility] Repository (1 source) Environmental allergy; Translations: [Environmental] Propensity to adverse reactions (disorder) [facility] Repository (1 source) Kingdom Animalia; Translations: [Animals] Propensity to adverse reactions to drug (disorder) [facility] Repository (1 source) Pollen; Translations: [Pollen] Propensity to adverse reactions to drug (disorder) [facility] Repository (1 source) Tree; Translations: [Trees] Propensity to adverse reactions to drug (disorder) [facility] Repository (1 source) Sun; Translations: [Sun] Propensity to adverse reactions to drug (disorder) [facility] Repository (1 source) Grass; Translations: [Grass] Propensity to adverse reactions to drug (disorder) [facility] NEGATED: Highlighted row has been ruled out! (3 sources) natural latex rubber; Translations: [LATEX, NATURAL RUBBER] Drug allergy (disorder) [facility] NEGATED: Highlighted row has been ruled out! (3 sources) No IV Contrast Allergy.; Translations: [IV Dye, Iodine Containing] Drug allergy (disorder) [facility] Medications Current Medications Medication Drug Class(es) [...] Start: 08-03-2021 take 1 capsule by mo [facility] once daily Esomeprazole Magnesium 40 MG [...] 25-Oct-2020 Seema Coates Start : 25-Oct-2020 Active Klyxic-X68-Fsjlrwxwd Factor (2 sources) Khqpto-A64-Bnaze ns icFactor folic acid 1 mg oral [...] daily Quantity: 30 Refills: 5 Ordered: 07-Mar-2021 Lpue Lieberman DOita Start : 12-Feb-2021 Active PNV [...] of ; Translations: [20 weeks gestation of ([facility])] Onset: 10-13-2024 Episodic Residual codes; unclassified [...] 5 Glucose Ql (U) Negative Neg mg/dL [facility] Interpretation and review of laboratory results Normal [facility] Protein.monoclonal (U) [Mass/Vol] Negative Neg mg/dL [facility] URINE OB DIP B/Oon 5 Glucose Ql (U) Negative Neg mg/dL [facility] Interpretation and review of laboratory results Normal [facility] Protein.monoclonal (U) [Mass/Vol] Negative Neg mg/dL [facility] Free T4 [Mass/Vol]on 025 Interpretation and review of laboratory results Abnormal [facility] No Panel Informationon 02-02 [facility] ROUTINE, GROUP B ST REPTOCOCCUS BY PCRon 02-02-2025 ROUTINE, GROUP B STREPTOCOCCUS BY PCR Not detected Normal [facility] Comment on above: Performed By: #### T SPN #### [facility] BLOOD BANK CLIA [id number] [address] [place] [address] [place] T4 FREE/FREE THYROXINEon Free T4 [Mass/Vol] 0.8 ng/dL Low 0.9 - 1.7 ng/dL [facility] T4 Free SerPl-mCncon Free T4 [Mass/Vol] 0.8 ng/dL Low 0.9-1.7 [facility] Comment on above: Order Comment: Speci men Type: BLOOD SPECIMENOrdering Facility: [facility] Address: [address] [place] [address] Performed By: #### 3 016-3, 3024-7 ####[facility] LABCLIA [id number] [place] [address] [place] THYROID STIMULATING HORMONEo n 02-02-2025 TSH Qn 3.930 m[IU]/L [facility] Comment on above: If the patient is [...] E, et al. 2017 Guidelines of the [place] [employer] for the Diagnosis and Management of Thyroid Disease during and the . Thyroid, 2017:27:3:315-389. TSH Qnon 02-02-2025 Interpretation and review of laboratory results Normal [facility] TSH SerPl-aCncon 02-02-2025 TSH Qn 3.930 m[IU]/L Normal 0.270-4.200 [facility] Comment on above: Order Comment: Speci men Type: BLOOD SPECIMENOrdering Facility: [facility] Address: [address] [place] [address] Result Comment: If t he patient is , TSH reference range varies by gestational period: First Trimester (weeks 9-12): 0.180-2.990 mIU/L Second Trimester: 0.110-3.980 mIU/L Third Trimester: 0.480-4.710 mIU/L Dionisio Meyers et al. A Practical Approach for the Verifications and Determination of Site- and Trimester-Specific Reference Intervals for Thyroid Function tests in . Thyroid, 2019:29:3:412-420. Héctor Arechiga, et al. [address] Guidelines [address] the [place] [employer] for the Diagnosis and Management of Thyroid Disease during and the . Thyroid, 2017:27:3:315-389. Performed By: #### 3 016-3, 3024-7 ####[facility] LABCLIA [id number] [place] [address] [place] URINE OB DIP B/Oon 5 Glucose Ql (U) Negative Neg mg/dL [facility] Interpretation and review of laboratory results Normal [facility] Protein.monoclonal (U) [Mass/Vol] Negative Neg mg/dL [facility] URINE OB DIP B/Oon 5 Glucose Ql (U) Negative Neg mg/dL [facility] Interpretation and review of laboratory results Normal [facility] Protein.monoclonal (U) [Mass/Vol] Negative Neg mg/dL [facility] CBC W Auto Differential pane l (Bld)on 12-08-2024 Basophils (Bld) [#/Vol] 0.03 10*3/uL Normal <0.11 [facility] Comment on above: Order Comment: Speci men Type: BLOOD SPECIMENOrdering Facility: [facility] Address: [address] [place] [address] Performed By: #### 5 7021-8 ####[facility] MILLWNCLIA [id number] [place] [address] [place] Basophils/100 WBC (Bld) 0.3 % Normal [facility] Comment on above: Order Comment: Speci men Type: BLOOD SPECIMENOrdering Facility: [facility] Address: [address] [place] [address] Performed By: #### 5 7021-8 ####[facility] YOUNGSTOWNLIA [id number] [place] [address] [place] Differential cell count method Nom (Bld) Auto Normal [facility] Comment on above: Order Comment: Speci men Type: BLOOD SPECIMENOrdering Facility: [facility] Address: [address] [place] [address] Performed By: #### 5 7021-8 ####[facility] YOUNGSTOWNLIA [id number] [place] [address] [place] Eosinophils (Bld) [#/Vol] 0.18 10*3/uL Normal <0.46 [facility] Comment on above: Order Comment: Speci men Type: BLOOD SPECIMENOrdering Facility: [facility] Address: [address] [place] [address] Performed By: #### 5 7021-8 ####[facility] HOSPITALWNCLIA [id number] [place] [address] [place] Eosinophils/100 WBC (Bld) 1.9 % Normal [facility] Comment on above: Order Comment: Speci men Type: BLOOD SPECIMENOrdering Facility: [facility] Address: [address] [place] [address] Performed By: #### 5 7021-8 ####[facility]OSPITALNCLIA [id number] [place] [address] [place] Erythrocyte distribution width (RBC) [Ratio] 13.1 % Normal 11.5-15.0 [facility] Comment on above: Order Comment: Speci men Type: BLOOD SPECIMENOrdering Facility: [facility] Address: [address] [place] [address] Performed By: #### 5 7021-8 ####[facility]OSPITALNCJUANITAA [id number] [place] [address] [place] Hematocrit (Bld) [Volume fraction] 33.5 % Low 36.0-46.0 [facility] Comment on above: Order Comment: Speci men Type: BLOOD SPECIMENOrdering Facility: [facility] Address: [address] [place] [address] Performed By: #### 5 7021-8 ####[facility]ITALNC[facility] [id number] [place] [address] [place] Hemoglobin (Bld) [Mass/Vol] 11.6 g/dL Normal 11.5-15.5 [facility] Comment on above: Order Comment: Speci men Type: BLOOD SPECIMENOrdering Facility: [facility] Address: [address] [place] [address] Performed By: #### 5 7021-8 ####[facility]OSPITALNCLIA [id number] [place] [address] [place] Immature granulocytes (Bld) [#/Vol] 0.13 10*3/uL High <0.10 [facility] Comment on above: Order Comment: Speci men Type: BLOOD SPECIMENOrdering Facility: [facility] Address: [address] [place] [address] Performed By: #### 5 7021-8 ####[facility] HOSPITALNCLIA [id number] [place] [address] [place] Immature granulocytes/100 WBC (Bld) 1.4 % Normal [facility] Comment on above: Order Comment: Speci men Type: BLOOD SPECIMENOrdering Facility: [facility] Address: [address] [place] [address] Performed By: #### 5 7021-8 ####[facility] TARANNCLINDSAY [id number] [place] [address] [place] Lymphocytes (Bld) [#/Vol] 1.16 10*3/uL Normal 1.00-4.00 [facility] Comment on above: Order Comment: Speci men Type: BLOOD SPECIMENOrdering Facility: [facility] Address: [address] [place] [address] Performed By: #### 5 7021-8 ####[facility] HOSPITALGLENYSA [id number] [place] [address] [place] Lymphocytes/100 WBC (Bld) 12.4 % Normal [facility] Comment on above: Order Comment: Speci men Type: BLOOD SPECIMENOrdering Facility: [facility] Address: [address] [place] [address] Performed By: #### 5 7021-8 ####[facility]OSPITALNCJUANITAA [id number] [place] [address] [place] MCH (RBC) [Entitic mass] 32.4 pg Normal 26.0-34.0 [facility] Comment on above: Order Comment: Speci men Type: BLOOD SPECIMENOrdering Facility: [facility] Address: [address] [place] [address] Performed By: #### 5 7021-8 ####[facility] HOSPITALNCLIA [id number] [place] [address] [place] MCHC (RBC) [Mass/Vol] 34.6 g/dL Normal 30.5-36.[address] [facility] Comment on above: Order Comment: Speci men Type: BLOOD SPECIMENOrdering Facility: [facility] Address: [address] [place] [address] Performed By: #### 5 7021-8 ####[facility] MILLWNCLIA [id number] [place] [address] [place] MCV (RBC) [Entitic vol] 93.6 fL Normal 80.0-100.0 [facility] Comment on above: Order Comment: Speci men Type: BLOOD SPECIMENOrdering Facility: [facility] Address: [address] [place] [address] Performed By: #### 5 7021-8 ####[facility]OSPITALNCLIA [id number] [place] [address] [place] Monocytes (Bld) [#/Vol] 0.75 10*3/uL Normal <0.87 [facility] Comment on above: Order Comment: Speci men Type: BLOOD SPECIMENOrdering Facility: [facility] Address: [address] [place] [address] Performed By: #### 5 7021-8 ####[facility]ITALA [id number] [place] [address] [place] Monocytes/100 WBC (Bld) 8.0 % Normal [facility] Comment on above: Order Comment: Speci men Type: BLOOD SPECIMENOrdering Facility: [facility] Address: [address] [place] [address] Performed By: #### 5 7021-8 ####[facility] YOUNGSTOWNLIA [id number] [place] [address] [place] Neutrophils (Bld) [#/Vol] 7.10 10*3/uL Normal 1.45-7.50 [facility] Comment on above: Order Comment: Speci men Type: BLOOD SPECIMENOrdering Facility: [facility] Address: [address] [place] [address] Performed By: #### 5 7021-8 ####[facility] YOUNGSTOWNLIA [id number] [place] [address] [place] Neutrophils/100 WBC (Bld) 76.0 % Normal [facility] Comment on above: Order Comment: Speci men Type: BLOOD SPECIMENOrdering Facility: [facility] Address: [address] [place] [address] Performed By: #### 5 7021-8 ####[facility]ITALNC[facility] [id number] [place] [address] [place] Nucleated RBC (Bld) [#/Vol] 10*3/uL Normal <0.01 [facility] Comment on above: Order Comment: Speci men Type: BLOOD SPECIMENOrdering Facility: [facility] Address: [address] [place] [address] Performed By: #### 5 7021-8 ####[facility] [id number] [place] [address] [place] Nucleated RBC/100 WBC (Bld) [Ratio] 0.0 /100 WBC Normal [facility] Comment on above: Order Comment: Speci men Type: BLOOD SPECIMENOrdering Facility: [facility] Address: [address] [place] [address] Performed By: #### 5 7021-8 ####[facility] HOSPITALNCLI [id number] [place] [address] [place] Platelet mean volume (Bld) [Entitic vol] 9.5 fL Normal 9.0-12.7 [facility] Comment on above: Order Comment: Speci men Type: BLOOD SPECIMENOrdering Facility: [facility] Address: [address] [place] [address] Performed By: #### 5 7021-8 ####[facility] HOSPITALNCLI [id number] [place] [address] [place] Platelets (Bld) [#/Vol] 191 10*3/uL Normal 150-400 [facility] Comment on above: Order Comment: Speci men Type: BLOOD SPECIMENOrdering Facility: [facility] Address: [address] [place] [address] Performed By: #### 5 7021-8 ####[facility]OSPITALNCLIA [id number] [place] [address] [place] RBC (Bld) [#/Vol] 3.58 10*6/uL Low 3.90-5.20 [facility] Comment on above: Order Comment: Speci men Type: BLOOD SPECIMENOrdering Facility: [facility] Address: [address] [place] [address] Performed By: #### 5 7021-8 ####[facility] HOSPITALNCA [id number] [place] [address] [place] WBC (Bld) [#/Vol] 9.35 10*3/uL Normal 3.70-11.00 [facility] Comment on above: Order Comment: Speci men Type: BLOOD SPECIMENOrdering Facility: [facility] Address: [address] [place] [address] Performed By: #### 5 7021-8 ####[facility] YOUNGSTOWNLIA [id number] [place] [address] [place] GESTATIONAL GLUCOSE SCREEN, 1-HOUR, 50 GRAM, NON-FASTINGon 12-08-2024 Glucose [Mass/Vol] 105 mg/dL Normal 74-134 [facility] Comment on above: Order Comment: Speci men Type: BLOOD SPECIMEN [facility] Address: [address] [place], [place] [address] Result Comment: [facility] Congress of Obstetricians and Gynecologists (Prashant/Boo) guidelines state a gestational diabetes mellitus positive screen is made, in women not previously diagnosed with overt diabetes, when the 1 hr plasma glucose level is equal to or above 140 mg/dL. The [facility] Senior Ux Designer and [facility] [place] recommends a 135 mg/dL cutoff. Performed By: #### T SPN #### [facility] BLOOD BANK CLIA [id number] 9500 [place] [address] [place] Reagin and Treponema pallidu m IgG and IgM [Interp]on 12-08-2024 T. pallidum IgG+IgM IA Ql (S) Non-Reactive Normal Nonreactive [facility] Comment on above: Order Comment: Speci men Type: BLOOD SPECIMENOrdering Facility: [facility] Address: [address] [place] [address] Performed By: #### 7 3752-8 ####[facility] LABBRATTLEBOR[facility] [id number] [place] [address] [place] Reagin+T pallidum IgG+IgM Se rPl-Impon 12-08-2024 Reagin and Treponema pallidum IgG and IgM [Interp] Cannot exclude recent Treponemal infection if specimen collected within 7-10 days after appearance of suspect lesions or 2-3 weeks after an exposure. Clinical correlation is required. Normal [facility] Comment on above: Order Comment: Speci men Type: BLOOD SPECIMENOrdering Facility: [facility] Address: [address] [place] [address] Performed By: #### 7 3752-8 ####[facility] LABBRATTLEBORO [facility] [id number] [place] [address] [place] T4 Free SerPl-mCncon 025 Free T4 [Mass/Vol] 0.8 ng/dL Low 0.9-1.7 [facility] Comment on above: Order Comment: Speci men Type: BLOOD SPECIMENOrdering Facility: [facility] Address: [address] [place] [address] Performed By: #### 3 024-7, 3016-3 ####[facility] LABIA [id number] [place] [address] [place] TSH SerPl-aCncon 12-08-2024 TSH Qn 2.860 m[IU]/L Normal 0.270-4.200 [facility] Comment on above: Order Comment: Speci men Type: BLOOD SPECIMENOrdering Facility: [facility] Address: [address] [facility] [place] [address] Result Comment: If t he patient is , TSH reference range varies by gestational period: First Trimester (weeks 9-12): 0.180-2.990 mIU/L Second Trimester: 0.110-3.980 mIU/L Third Trimester: 0.480-4.710 mIU/L Dionisio Meyers et al. A Practical Approach for the Verifications and Determination of Site- and Trimester-Specific Reference Intervals for Thyroid Function tests in . Thyroid, 2019:29:3:412-420. Héctor Arechiga, et al. [address] Guidelines of the [place] Thyroid [employer] for the Diagnosis and Management of Thyroid Disease during and the . Thyroid, 2017:27:3:315-389. Performed By: #### 3 024-7, 3016-3 ####[facility] LABCLIA [id number] [address] [place] CNCOon 11-29-2024 CNCO Letter Text Normal [facility] Examination level ultrasound on 10-13-2024 Indication Standard [...] 13 oz EFW by: Hadlock (HC-AC-FL) Extended Radio Frequency Engineer 5.1 mm CM 4.9 mm 41% Nicolaides [...] normal LVOT view: normal 3-vessel view: normal 3-linlqm-uwppxyp view: normal Heart / Thorax Situs: situs [...] Performed By: Monica Fisher RDMS Read By: Roay Smith M.D. MATERNAL MEDICINE [facility] Radiology Study observation (narrative) [facility] Reginaldo 09-27-2024 BECCAN Telephone (OBGYWM) -------- RAMONA WAHL ([id number]) 1990 F Date Time Provider Department 09/27/24 PHILLIP CASTRO OBGYWEloina During your visit today, we recorded the following information about you: Fanny Virk, GENARO 09/27/2024 10:47 AM Signed [facility] Order to provider to sign. GENARO [...] Status:Closed by AKANKSHA FONSECA on 09/28/24 Normal [facility] CBC W Auto Differential pane l (Bld)on 08-17-2024 Basophils (Bld) [#/Vol] 0.03 10*3/uL Normal <0.11 [facility] Comment on above: Order Comment: Speci men Type: BLOOD SPECIMENOrdering Facility: [facility] Address: [address] [place] [address] Performed By: #### 5 7021-8 ####[facility] HEATHER [facility]OS[facility] GENERAL HOSPITALLINDSAY [id number] [place] [address] [place] Basophils/100 WBC (Bld) 0.3 % Normal [facility] Comment on above: Order Comment: Speci men Type: BLOOD SPECIMENOrdering Facility: [facility] Address: [address] [place] [address] Performed By: #### 5 7021-8 ####[facility] BOBWGLENYSLIA [id number] [place] [address] [place] Differential cell count method Nom (Bld) Auto Normal [facility] Comment on above: Order Comment: Speci men Type: BLOOD SPECIMENOrdering Facility: [facility] Address: [address] [place] [address] Performed By: #### 5 7021-8 ####[facility] BOBNEW ORLEANSNCLIA [id number] [place] [address] [place] Eosinophils (Bld) [#/Vol] 0.28 10*3/uL Normal <0.46 [facility] Comment on above: Order Comment: Speci men Type: BLOOD SPECIMENOrdering Facility: [facility] Address: [address] [place] [address] Performed By: #### 5 7021-8 ####[facility]OSPITALNCLIA [id number] [place] [address] [place] Eosinophils/100 WBC (Bld) 2.8 % Normal [facility] Comment on above: Order Comment: Speci men Type: BLOOD SPECIMENOrdering Facility: [facility] Address: [address] [place] [address] Performed By: #### 5 7021-8 ####[facility] HOSPITALWNCLIA [id number] [place] [address] [place] Erythrocyte distribution width (RBC) [Ratio] 14.3 % Normal 11.5-15.0 [facility] Comment on above: Order Comment: Speci men Type: BLOOD SPECIMENOrdering Facility: [facility] Address: [address] [place] [address] Performed By: #### 5 7021-8 ####[facility]ITALNC[facility] [id number] [place] [address] [place] Hematocrit (Bld) [Volume fraction] 38.5 % Normal 36.0-46.0 [facility] Comment on above: Order Comment: Speci men Type: BLOOD SPECIMENOrdering Facility: [facility] Address: [address] [place] [address] Performed By: #### 5 7021-8 ####[facility] [id number] [place] [address] [place] Hemoglobin (Bld) [Mass/Vol] 12.9 g/dL Normal 11.5-15.5 [facility] Comment on above: Order Comment: Speci men Type: BLOOD SPECIMENOrdering Facility: [facility] Address: [address] [place] [address] Performed By: #### 5 7021-8 ####[facility] [id number] [place] [address] [place] Immature granulocytes (Bld) [#/Vol] 0.04 10*3/uL Normal <0.10 [facility] Comment on above: Order Comment: Speci men Type: BLOOD SPECIMENOrdering Facility: [facility] Address: [address] [place] [address] Performed By: #### 5 7021-8 ####[facility] [id number] [place] [address] [place] Immature granulocytes/100 WBC (Bld) 0.4 % Normal [facility] Comment on above: Order Comment: Speci men Type: BLOOD SPECIMENOrdering Facility: [facility] Address: [address] [place] [address] Performed By: #### 5 7021-8 ####[facility]OSPITALNCLI [id number] [place] [address] [place] Lymphocytes (Bld) [#/Vol] 1.44 10*3/uL Normal 1.00-4.00 [facility] Comment on above: Order Comment: Speci men Type: BLOOD SPECIMENOrdering Facility: [facility] Address: [address] [place] [address] Performed By: #### 5 7021-8 ####[facility] [id number] [place] [address] [place] Lymphocytes/100 WBC (Bld) 14.5 % [facility] Comment on above: Order Comment: Speci men Type: BLOOD SPECIMENOrdering Facility: [facility] Address: [address] [place] [address] Performed By: #### 5 7021-8 ####[facility] [id number] [place] [address] [place] MCH (RBC) [Entitic mass] 30.6 pg Normal 26.0-34.0 [facility] Comment on above: Order Comment: Speci men Type: BLOOD SPECIMENOrdering Facility: [facility] Address: [address] [place] [address] Performed By: #### 5 7021-8 ####[facility] [id number] [place] [address] [place] MCHC (RBC) [Mass/Vol] 33.5 g/dL Normal 30.5-36.[address] [facility] Comment on above: Order Comment: Speci men Type: BLOOD SPECIMENOrdering Facility: [facility] Address: [address] [place] [address] Performed By: #### 5 7021-8 ####[facility] [id number] [place] [address] [place] MCV (RBC) [Entitic vol] 91.2 fL Normal 80.0-100.0 [facility] Comment on above: Order Comment: Speci men Type: BLOOD SPECIMENOrdering Facility: [facility] Address: [address] [place] [address] Performed By: #### 5 7021-8 ####[facility] MILLDELBERTWNCLIA [id number] [place] [address] [place] Monocytes (Bld) [#/Vol] 0.59 10*3/uL Normal <0.87 [facility] Comment on above: Order Comment: Speci men Type: BLOOD SPECIMENOrdering Facility: [facility] Address: [address] [place] [address] Performed By: #### 5 7021-8 ####[facility] MILLWGLENYSLIA [id number] [place] [address] [place] Monocytes/100 WBC (Bld) 6.0 % [facility] Comment on above: Order Comment: Speci men Type: BLOOD SPECIMENOrdering Facility: [facility] Address: [address] [place] [address] Performed By: #### 5 7021-8 ####[facility]ITAL[facility]CL[facility] [id number] [place] [address] [place] Neutrophils (Bld) [#/Vol] 7.52 10*3/uL High 1.45-7.50 [facility] Comment on above: Order Comment: Speci men Type: BLOOD SPECIMENOrdering Facility: [facility] Address: [address] [place] [address] Performed By: #### 5 7021-8 ####[facility] MILLWNCLIA [id number] [place] [address] [place] Neutrophils/100 WBC (Bld) 76.0 % Normal [facility] Comment on above: Order Comment: Speci men Type: BLOOD SPECIMENOrdering Facility: [facility] Address: [address] [place] [address] Performed By: #### 5 7021-8 ####[facility] MILLNEW ORLEANSNCLIA [id number] [place] [address] [place] Nucleated RBC (Bld) [#/Vol] 10*3/uL Normal <0.01 [facility] Comment on above: Order Comment: Speci men Type: BLOOD SPECIMENOrdering Facility: [facility] Address: [address] [place] [address] Performed By: #### 5 7021-8 ####[facility] [id number] [place] [address] [place] Nucleated RBC/100 WBC (Bld) [Ratio] 0.0 /100 WBC Normal [facility] Comment on above: Order Comment: Speci men Type: BLOOD SPECIMENOrdering Facility: [facility] Address: [address] [place] [address] Performed By: #### 5 7021-8 ####[facility] [id number] [place] [address] [place] Platelet mean volume (Bld) [Entitic vol] 9.5 fL Normal 9.0-12.7 [facility] Comment on above: Order Comment: Speci men Type: BLOOD SPECIMENOrdering Facility: [facility] Address: [address] [place] [address] Performed By: #### 5 7021-8 ####[facility]ITAL[facility]CL[facility] [id number] [place] [address] [place] Platelets (Bld) [#/Vol] 268 10*3/uL Normal 150-400 [facility] Comment on above: Order Comment: Speci men Type: BLOOD SPECIMENOrdering Facility: [facility] Address: [address] [place] [address] Performed By: #### 5 7021-8 ####[facility]ITAL[facility] [id number] [place] [address] [place] RBC (Bld) [#/Vol] 4.22 10*6/uL Normal 3.90-5.20 [facility] Comment on above: Order Comment: Speci men Type: BLOOD SPECIMENOrdering Facility: [facility] Address: [address] [place] [address] Performed By: #### 5 7021-8 ####[facility]ITAL[facility]CL[facility] [id number] [place] [address] [place] WBC (Bld) [#/Vol] 9.90 10*3/uL Normal 3.70-11.00 [facility] Comment on above: Order Comment: Speci men Type: BLOOD SPECIMENOrdering Facility: [facility] Address: [address] [place] [address] Performed By: #### 5 7021-8 ####[facility]ITAL[facility]CLIA [id number] [address] OF N[place] LEIOVon 08-17-2024 CNOV Office Visit (DAVID ) -------- RAMONA WAHL ([id number]) 1990 F Date Time Provider Department 08/17/24 [...] No history of dysuria, frequency or incontinence STRATEGIES ANALYST: Negative for abnormal vaginal bleeding, abnormal vaginal [...] annual exam in one year Jeannie Taylor APRN.STATISTICAL MACHINE MECHANIC Prescription instructions reviewed with patient as applicable. [...] Date Reviewed: 08/17/2024 Reviewed by: Jeannie Taylor APRN.STATISTICAL MACHINE MECHANIC - Fully Assessed Reason for Visit: Establish Care [42] Primary Visit Diagnosis:Encounter for medical examination to establish care [Z00.00] Prescriptions as of 08/17/2024 (more content not included)... [facility] Examination level ultrasound on 08-17-2024 Indication First trimester anatomic survey Impression The patient is referred for a first trimester anatomy scan including nuchal translucency measurement as clinically indicated. - Single, live, intrauterine . - [place] rump length measurement is consistent with the [...] view: normal 4-chamber view with color: normal 3-sctooy-whxyvtw view: normal Abdominal cord insertion: normal Stomach: [...] Read By: Roya Smith M.D. MATERNAL MEDICINE [facility] Radiology Study observation (narrative) [facility] Free T4 [Mass/Vol]on 025 Interpretation and review of laboratory results Normal [facility] HBV surface Ag Ser Qlon 03- HBV surface Ag Ql (S) Negative Normal Negative [facility] Comment on above: Order Comment: Speci men Type: BLOOD SPECIMENOrdering Facility: [facility] Address: [address] [place] [address] Performed By: #### 7 3752-8, 5-3, 42691-2 ####[facility] LABCLIA [id number] [place] [address] [place] HCV Ab Ser Qlon 08-17-2024 HCV Ab Ql (S) Negative Normal Negative [facility] Comment on above: Order Comment: Speci men Type: BLOOD SPECIMENOrdering Facility: [facility] Address: [address] [place] [address] Result Comment: The result suggests no evidence of infection with Hepatitis C virus. Should recent infection be suspected, repeat testing may be considered 4-6 weeks after this draw. Performed By: #### 1 6128-1 ####[facility] LABCLIA [id number] [place] [address] [place] HIV 1+2 Ab IA Qlon HIV 1 and 2 Ab IA.rapid Nom (S/P/Bld) Normal [facility] Comment on above: Order Comment: Speci men Type: BLOOD SPECIMENOrdering Facility: [facility] Address: [address] [place] [address] Result Comment: Test not indicated. Performed By: #### 7 3752-8, 5-3, 62119-3 ####[facility] LABCLIA [id number] [place] [address] [place] HIV 1+2 Ab+HIV1 p24 Ag IA Ql Non-Reactive Normal Nonreactive [facility] Comment on above: Order Comment: Speci men Type: BLOOD SPECIMENOrdering Facility: [facility] Address: [address] [place] [address] Performed By: #### 7 3752-8, 5195-3, 88634-0 ####[facility] LABCLIA [id number] [place] [id number] [place] HIV immunoassay testing algorithm interpretation (S/P/Bld) [Interp] Normal [facility] Comment on above: Order Comment: Speci men Type: BLOOD SPECIMENOrdering Facility: [facility] Address: [address] [place] [address] Result Comment: No e vidence of HIV-1 or HIV-2 infection. Should recent infection be suspected, repeat testing may be considered 2-3 weeks after this draw. Cass Rev. Code 3701.243(E): This information has been [...] diagnoses. Performed By: #### 7 3752-8, 5195-3, 32402-4 ####[facility] LABCLIA [id number] [place] [address] [place] HbA1c (Bld)on 08-17-2024 Average glucose Estimated from glycated hemoglobin (Bld) [Mass/Vol] 80 mg/dL [facility] Comment on above: Order Comment: Speci men Type: BLOOD SPECIMENOrdering Facility: [facility] Address: [address] [place] [address] Result Comment: eAG: (Estimated average glucose) is a calculated value from HgbA1c and is sales service representative of the average blood glucose level in the last 2-3 month period. Performed By: #### 5 5454-3 ####[facility] LABIA [id number] [place] [address] [place] HbA1c (Bld) [Mass fraction] 4.4 % Normal 4.3-5.6 [facility] Comment on above: Order Comment: Speci men Type: BLOOD SPECIMENOrdering Facility: [facility] Address: [address] [place], [place] [address] Result Comment: Amer [place] Diabetes Association guidelines indicate that patients with HgbA1c in the range 5.7-6.4% are at increased risk for development of diabetes, and intervention by lifestyle modification may be beneficial. HgbA1c greater or equal to 6.5% is considered diagnostic of diabetes. Performed By: #### 5 5454-3 ####[facility] LABCLIA [id number] [place] [address] [place] RUBELLA IGG ANTIBODYon 08-17 RUBELLA IGG AB, QUAL Positive Normal Positive [facility] Comment on above: Order Comment: Speci men Type: BLOOD SPECIMENOrdering Facility: [facility] Address: [address] [place] [address] Result Comment: The result suggests recent or past exposure to Rubella virus or history of Rubella vaccination. Positive result may also be seen due to presence of passively-transferred antibodies. Please correlate with patient's history. Performed By: #### R UBIGG ####[facility] LABCLIA [id number] [place] [address] [place] Reagin and Treponema pallidu m IgG and IgM [Interp]on 08-17-2024 T. pallidum IgG+IgM IA Ql (S) Non-Reactive Normal Nonreactive [facility] Comment on above: Order Comment: Speci men Type: BLOOD SPECIMENOrdering Facility: [facility] Address: [address] [place] [address] Performed By: #### 7 3752-8, 5195-3, 25607-7 ####[facility] LABIA [id number] [place] [address] [place] Reagin+T pallidum IgG+IgM Se rPl-Impon 08-17-2024 Reagin and Treponema pallidum IgG and IgM [Interp] Cannot exclude recent Treponemal infection if specimen collected within 7-10 days after appearance of suspect lesions or 2-3 weeks after an exposure. Clinical correlation is required. Normal [facility] Comment on above: Order Comment: Speci men Type: BLOOD SPECIMENOrdering Facility: [facility] Address: [address] [place] [address] Performed By: #### 7 3752-8, 5195-3, 15286-3 ####[facility] LABCLIA [id number] [place] [address] [place] T4 FREE/FREE THYROXINEon Free T4 [Mass/Vol] 1.1 ng/dL 0.9 - 1.7 ng/dL [facility] T4 Free SerPl-mCncon 025 Free T4 [Mass/Vol] 1.1 ng/dL Normal 0.9-1.7 [facility] Comment on above: Order Comment: Mega figueroa Type: BLOOD SPECIMEN Ordering Facility: [facility] Address: [address] [place] [address] Performed By: #### T SPN #### [facility] CLIA [id number] [address] [place] [address] [place] TSH SerPl-aCncon 08-17-2024 TSH Qn 1.420 m[IU]/L Normal 0.270-4.200 [facility] Comment on above: Order Comment: Mega figueroa Type: BLOOD SPECIMEN Ordering Facility: [facility] Address: [address] [place] [address] Result Comment: If t he patient is , TSH reference range varies by gestational period: First Trimester (weeks 9-12): 0.180-2.990 mIU/L Second Trimester: 0.110-3.980 mIU/L Third Trimester: 0.480-4.710 mIU/L Dionisio Meyers et al. A Practical Approach for the Verifications and Determination of Site- and Trimester-Specific Reference Intervals for Thyroid Function tests in . Thyroid, 2019:29:3:412-420. Héctor Arechiga et al. 2017 Guidelines of the [place] [employer] for the Diagnosis and Management of Thyroid Disease during and the . Thyroid, 2017:27:3:315-389. Performed By: #### T SPN #### [facility] CLIA [id number] [address] [place] [address] [place] TYPE + SCREEN PRENATALon ABO O Normal [facility] Comment on above: Order Comment: Speci men Type: BLOOD SPECIMEN Ordering Facility: [facility] Address: [address] [place] [address] Performed By: #### T SPN #### [facility] CLIA [id number] [address] [place] [address] [place] Rh Nom (Bld) Positive Normal [facility] Comment on above: Order Comment: Speci men Type: BLOOD SPECIMEN Ordering Facility: [facility] Address: [address] [place] [address] Performed By: #### T SPN #### [facility] CLIA [id number] [address] [place] [address] [place] TYPE AND SCREEN EXPIRATION 08/20/2024 23:59 Normal [facility] Comment on above: Order Comment: Speci men Type: BLOOD SPECIMEN Ordering Facility: [facility] Address: [address] [place] [address] Performed By: #### T SPN #### [facility] CLIA [id number] [address] [place] [address] [place] Bacteria Ur Culton Bacteria identified Cx Nom (U) ORGANISM ID: 1 10,000 -<50,000 CFU/ml Normal urogenital mateo Normal [facility] Comment on above: Performed By: #### T SPN #### [facility] CLIA [id number] [address] [place] [address] [place] C. trachomatis+N. gonorrhoea e DNA TRISH+probe Ql (Unsp spec)on 07-20-2024 C. trachomatis rRNA TRISH+probe Ql (Unsp spec) Not detected Normal Not detected [facility] Comment on above: Order Comment: Speci men Type: BLOOD SPECIMEN [facility]ing Facility: [facility] Address: [address] [place] [address] Performed By: #### T SPN #### [facility] CLIA [id number] [address] [place] [address] [place] N. gonorrhoeae rRNA TRISH+probe Ql (Unsp spec) Not detected Normal Not detected [facility] Comment on above: Order Comment: Speci men Type: BLOOD SPECIMEN Ordering Facility: [facility] Address: [address] [place] [address] Performed By: #### T SPN #### [facility] CLIA [id number] [address] [place] [address] [place] HIGH RISK HUMAN PAPILLOMA PALMIRA (HPV), PCR FOR DETECTION AND GENOTYPINGon 07-20-2024 HPV 16 Ag Ql (Unsp spec) Not detected Normal Not detected [facility] Comment on above: Order Comment: Speci men Type: FLUID SPECIMENOrdering Facility: [facility] Address: [address] [place] [address] Performed By: #### H PVHRT ####[facility]BR[facility] [id number] [place] [address] [place] HPV 18 Ag Ql (Unsp spec) Not detected Normal Not detected [facility] Comment on above: Order Comment: Speci men Type: FLUID SPECIMENOrdering Facility: [facility] Address: [address] [place] [address] Performed By: #### H PVHRT ####[facility] LABIA [id number] [place] [address] [place] HPV 31+33+35+39+45+51+52+ 56+58+59+66+68 DNA TRISH+probe Ql (Cvx) Not detected Normal Not detected [facility] Comment on above: Order Comment: Speci men Type: FLUID SPECIMENOrdering Facility: [facility] Address: [address] [place] [address] Result Comment: High Risk HPV Other Type includes HPV types 31, 33, 35, 39, 45, 51, 52, 56, 58, 59, 66 and 68. Performed By: #### H PVHRT ####[facility] LABCLIA [id number] [place] [id number] [place] PAP TESTon 07-20-2024 ADEQUACY Normal [facility] Comment on above: Order Comment: Speci men Type: FLUID SPECIMEN Ordering Facility: [facility] Address: [address] [place] [address] Result Comment: Sati sfactory for interpretation. Transformation zone present Performed By: #### L [id number] #### [facility] CLIA [id number] [address] [place] [address] [place] CASE REPORT Normal [facility] Comment on above: Order Comment: Speci men Type: FLUID SPECIMEN Ordering Facility: [facility] Address: [address] [place] [address] Result Comment: Gyne cologic Cytology Report Case: [id number] Authorizing Provider: Marielle Jiménez APRN.STATISTICAL MACHINE MECHANIC Collected: 07/20/2024 10:17 AM Ordering Location: OB/Gynecology Received: 07/20/2024 10:50 AM First Screen: Toshia Cordova, ALBA, ASCP Specimen: Pap Test, ThinPrep, Cervix Performed By: #### L [id number] #### [facility] CLIA [id number] [address] [place] [address] [place] CLINICAL HISTORY, CYTOLOGY, STRATEGIES ANALYST Routine Exam Normal [facility] Comment on above: Order Comment: Speci men Type: FLUID SPECIMEN Ordering Facility: [facility] Address: [address] [place] [address] Performed By: #### L [id number] #### [facility] CLIA [id number] [address] [place] [address] [place] FINAL PERFORMING LAB Normal [facility] Comment on above: Order Comment: Speci men Type: FLUID SPECIMEN Ordering Facility: [facility] Address: [address] [place] [address] Result Comment: Tech nical component, press box custodian screening performed at [facility], [facility] [place] [address] CLIA# [id number] Diagnostic interpretation performed at [facility], [address] [place] [address] [place] [address] CLIA# [id number] Pc Maintenance Technician: Wilmer Lewis M.D. Performed By: #### L [id number] #### [facility] CLIA [id number] [address] [place], [place] [address] [place] INTERPRETATION, CYTOLOGY, STRATEGIES ANALYST Normal [facility] Comment on above: Order Comment: Speci men Type: FLUID SPECIMEN Ordering Facility: [facility] Address: [address] [place] [address] Result Comment: Nega tive for intraepithelial lesion or malignancy. at 1352 EST Performed By: #### L [id number] #### [facility] CLIA [id number] [address] [place] [address] [place] LMP 05/20/2024 Normal [facility] Comment on above: Order Comment: Speci men Type: FLUID SPECIMEN [facility]ing Facility: [facility] Address: [address] [place] [address] Performed By: #### L [id number] #### [facility] CLIA [id number] [address] [place], [place] [address] [place] PAP DISCLAIMER COMMENT The Pap Smear is a screening test for cervical cancer. False negative results occur with all screening tests, emphasizing the need for rescreening at recommended intervals, and clinical correlation. Normal [facility] Comment on above: Order Comment: Speci men Type: FLUID SPECIMEN Ordering Facility: [facility] Address: [address] [place] [address] Performed By: #### L [id number] #### [facility] CLIA [id number] [address] PAP BALANCE AND HAIRSPRING ASSEMBLER COMMENT This specimen has be en analyzed by the ThinPrep Imaging System, an automated imaging and review system, which assists the laboratory in evaluating cells on ThinPrep Pap tests. Following automated imaging, selected de la paz from every slide are reviewed by a press box custodian. Normal [facility] Comment on above: Order Comment: Speci men Type: FLUID SPECIMEN [facility]ing Facility: [facility] Address: [address] [place] [address] Performed By: #### L [id number] #### [facility] CLIA [id number] [address] [place] [address] POC CONTACT LENS POLISHER ULTRASOUNDon 07-20-19 Indication Confirmation of intrauterine . [...] Read By: Marielle Jiménez CNP MATERNAL MEDICINE [facility] Radiology Study observation (narrative) [facility] TRICHOMONAS VAGINALIS NAATon 07-20-2024 T. vaginalis DNA TRISH+probe Ql (Unsp spec) Not detected Normal Not detected [facility] Comment on above: Order Comment: Speci men Type: BLOOD SPECIMEN Ordering Facility: [facility] Address: [address] [place] [address] Performed By: #### T SPN #### [facility] CLIA [id number] [address] [facility] [address] [id number] [address] [place] Basic Metabolic Profile (BMP )on 07-17-2024 BUN/CRE 24.1 RATIO High 10-20 [facility] Comment on above: Performed By: #### L 501.2450, L700.8000, L500.2500, L100.0100, L500.3400 #### [facility] [address] [place], [address] CA,Total 9.6 mg/dL Normal 8.5-10.1 [facility] Comment on above: Performed By: #### L 501.2450, L700.8000, L500.2500, L100.0100, L500.3400 #### [facility] [address] [place], [address] Chloride [Moles/Vol] 102 mmol/L Normal 98-107 [facility] Comment on above: Performed By: #### L 501.2450, L700.8000, L500.2500, L100.0100, L500.3400 #### [facility] [address] [place], [address] CO2 [Moles/Vol] 25.0 mmol/L Normal 21.0-32.0 [facility] Comment on above: Performed By: #### L 501.2450, L700.8000, L500.2500, L100.0100, L500.3400 #### [facility] [address] [place], [address] Creatinine [Mass/Vol] 0.75 mg/dL Normal 0.55-1.02 [facility] Comment on above: Result Comment: The validity of the calculated GFR GFRAA in patients over 70 years has not been determined. Clinical correlation is essential. Performed By: #### L 501.2450, L700.8000, L500.2500, L100.0100, L500.3400 #### [facility] [address] [place], [address] ECRCL 89.08 ml/min Normal [facility] Comment on above: Performed By: #### L 501.2450, L700.8000, L500.2500, L100.0100, L500.3400 #### [facility] [address] [place], [address] EST GFR - AA 116 mL/min Normal >60 [facility] Comment on above: Result Comment: Afri can [place] GFR Calc Performed By: #### L 501.2450, L700.8000, L500.2500, L100.0100, L500.3400 #### [facility] [address] [place], [address] GAP 8 Normal 5-15 [facility] Comment on above: Performed By: #### L 501.2450, L700.8000, L500.2500, L100.0100, L500.3400 #### [facility] [address] [place], [address] GFR/1.73 sq M.predicted among non-blacks MDRD (S/P/Bld) [Vol rate/Area] 95 mL/min/{1.73_m2} Normal >60 [facility] Comment on above: Result Comment: Non- GFR Calc Performed By: #### L 501.2450, L700.8000, L500.2500, L100.0100, L500.3400 #### [facility] [address] [place], [address] Glucose [Mass/Vol] 81 mg/dL Normal 74-106 [facility] Comment on above: Performed By: #### L 501.2450, L700.8000, L500.2500, L100.0100, L500.3400 #### [facility] [address] [place], [address] Potassium [Moles/Vol] 3.4 mmol/L Low 3.5-5.1 [facility] Comment on above: Performed By: #### L 501.2450, L700.8000, L500.2500, L100.0100, L500.3400 #### [facility] [address] [place], [address] Sodium [Moles/Vol] 136 mmol/L Normal 136-145 [facility] Comment on above: Performed By: #### L 501.2450, L700.8000, L500.2500, L100.0100, L500.3400 #### [facility] [address] [place], [address] Urea nitrogen [Mass/Vol] 18 mg/dL Normal 7-18 [facility] Comment on above: Performed By: #### L 501.2450, L700.8000, L500.2500, L100.0100, L500.3400 #### [facility] [address] [place], [address] CBC W/Diff, Automatedon 02 Absolute Lymph 1.19 X10 3/uL Normal 0.83-4.51 [facility] Comment on above: Performed By: #### L 501.2450, L700.8000, L500.2500, L100.0100, L500.3400 #### [facility] [address] [place], [address] Absolute Neut 10.2 X10 3/uL High 2.0-7.7 [facility] Comment on above: Performed By: #### L 501.2450, L700.8000, L500.2500, L100.0100, L500.3400 #### [facility] [address] [place], [address] Basophils/100 WBC (Bld) 0.3 % Normal 0-1 [facility] Comment on above: Performed By: #### L 501.2450, L700.8000, L500.2500, L100.0100, L500.3400 #### [facility] [address] [place], [address] Eosinophils/100 WBC (Bld) 1.0 % Normal 0-5 [facility] Comment on above: Performed By: #### L 501.2450, L700.8000, L500.2500, L100.0100, L500.3400 #### [facility] [address] [place], [address] Erythrocyte distribution width (RBC) [Ratio] 12.4 % Normal 11.6-14.6 [facility] Comment on above: Performed By: #### L 501.2450, L700.8000, L500.2500, L100.0100, L500.3400 #### [facility] [address] [place], [address] Hematocrit (Bld) [Volume fraction] 43.1 % Normal 37-47 [facility] Comment on above: Performed By: #### L 501.2450, L700.8000, L500.2500, L100.0100, L500.3400 #### [facility] [address] [place], [address] Hemoglobin (Bld) [Mass/Vol] 14.8 g/dL Normal 12.0-15.0 [facility] Comment on above: Performed By: #### L 501.2450, L700.8000, L500.2500, L100.0100, L500.3400 #### [facility] [address] [place], [address] IG% 0.600 Normal 0.0-0.9 [facility] Comment on above: Result Comment: IG% - Immature Granulocytes (promyelocytes, myelocytes and metamyelocytes) > 1% indicates that a LEFT SHIFT is Present. Performed By: #### L 501.2450, L700.8000, L500.2500, L100.0100, L500.3400 #### [facility] [address] [place], [address] Lymphocytes/100 WBC (Bld) 9.6 % Low 19-41 [facility] Comment on above: Performed By: #### L 501.2450, L700.8000, L500.2500, L100.0100, L500.3400 #### [facility] [address] [place], [address] MCH (RBC) [Entitic mass] 30.1 pg Normal 27.0-32.0 [facility] Comment on above: Performed By: #### L 501.2450, L700.8000, L500.2500, L100.0100, L500.3400 #### [facility] [address] [place], [address] MCHC (RBC) [Mass/Vol] 34.3 g/dL Normal 32-36 [facility] Comment on above: Performed By: #### L 501.2450, L700.8000, L500.2500, L100.0100, L500.3400 #### [facility] [address] [place], [address] MCV (RBC) [Entitic vol] 87.6 fL Normal 81-99 [facility] Comment on above: Performed By: #### L 501.2450, L700.8000, L500.2500, L100.0100, L500.3400 #### [facility] [address] [place], [address] Monocytes/100 WBC (Bld) 6.3 % Normal 0-10 [facility] Comment on above: Performed By: #### L 501.2450, L700.8000, L500.2500, L100.0100, L500.3400 #### [facility] [address] [place], [address] Neutrophils/100 WBC (Bld) 82.2 % High 47-70 [facility] Comment on above: Performed By: #### L 501.2450, L700.8000, L500.2500, L100.0100, L500.3400 #### [facility] [address] [place], [address] Nucleated RBC (Bld) [#/Vol] 0 10*3/uL Normal 0-5 [facility] Comment on above: Performed By: #### L 501.2450, L700.8000, L500.2500, L100.0100, L500.3400 #### [facility] [address] [place], [address] Platelet mean volume (Bld) [Entitic vol] 9.9 fL Normal 6.2-12.0 [facility] Comment on above: Performed By: #### L 501.2450, L700.8000, L500.2500, L100.0100, L500.3400 #### [facility] [address] [place], [address] Platelets (Bld) [#/Vol] 211 10*3/uL Normal 150-450 [facility] Comment on above: Performed By: #### L 501.2450, L700.8000, L500.2500, L100.0100, L500.3400 #### [facility] [address] [place], [address] RBC (Bld) [#/Vol] 4.92 10*6/uL Normal 4.2-5.4 [facility] Comment on above: Performed By: #### L 501.2450, L700.8000, L500.2500, L100.0100, L500.3400 #### [facility] [address] [place], [address] RDW SD 40.0 fl Normal 35.1-43.9 [facility] Comment on above: Performed By: #### L 501.2450, L700.8000, L500.2500, L100.0100, L500.3400 #### [facility] [address] [place], [address] WBC (Bld) [#/Vol] 12.4 10*3/uL High 4.4-11.0 [facility] Comment on above: Performed By: #### L 501.2450, L700.8000, L500.2500, L100.0100, L500.3400 #### [facility] [address] [place], [address] Emergency Department Summary on 07-17-2024 Emergency Department Summary [facility] Medical Records Department [address] [place] [address] Emergency Department Summary 07/17/24 MR#: [id number] Acct: [id number] Name: RAMONA WAHL Rep #: [id number] : 1990 34 From: Maxim Francisco DO [...] vomit that she should come to emergency. [facility] Medical History Vaginal delivery PCOS (polycystic ovarian [...] RBC 4.92 (more content not included)... Normal [facility] Lipaseon 07-17-2024 Lipase [Catalytic activity/Vol] 25 U/L Low 73-393 [facility] Comment on above: Performed By: #### L 501.2450, L700.8000, L500.2500, L100.0100, L500.3400 #### [facility] [address] [place], [place], [id number] Liver Profileon 07-17-2024 Albumin [Mass/Vol] 3.7 g/dL Normal 3.2-5.0 [facility] Comment on above: Performed By: #### L 501.2450, L700.8000, L500.2500, L100.0100, L500.3400 #### [facility] [address] [place], [place], [address] ALK P 63 U/L Normal 45-117 [facility] Comment on above: Performed By: #### L 501.2450, L700.8000, L500.2500, L100.0100, L500.3400 #### [facility] [address] [place], [address] ALT [Catalytic activity/Vol] 24 U/L Normal 13-56 [facility] Comment on above: Performed By: #### L 501.2450, L700.8000, L500.2500, L100.0100, L500.3400 #### [facility] [address] [place], [address] AST [Catalytic activity/Vol] 18 U/L Normal 15-37 [facility] Comment on above: Performed By: #### L 501.2450, L700.8000, L500.2500, L100.0100, L500.3400 #### [facility] [address] [place], [address] Bilirubin [Mass/Vol] 0.90 mg/dL Normal 0.20-1.00 [facility] Comment on above: Result Comment: For patients on eltrombopag therapy, use of Dimension [place] TBIL is not recommended. Performed By: #### L 501.2450, L700.8000, L500.2500, L100.0100, L500.3400 #### [facility] [address] [place], [address] Bilirubin.direct [Mass/Vol] 0.28 mg/dL Normal 0.00-0.30 [facility] Comment on above: Performed By: #### L 501.2450, L700.8000, L500.2500, L100.0100, L500.3400 #### [facility] [address] [place], [address] Globulin (S) [Mass/Vol] 4.1 g/dL Normal 2.2-4.2 [facility] Comment on above: Performed By: #### L 501.2450, L700.8000, L500.2500, L100.0100, L500.3400 #### [facility] [address] [place], [address] T PROT 7.8 g/dL Normal 6.4-8.2 [facility] Comment on above: Performed By: #### L 501.2450, L700.8000, L500.2500, L100.0100, L500.3400 #### [facility] [address] [place], [address] Urinalysis, Completeon 07-17 RBC 0 SEEN Normal 0-5 [facility] Comment on above: Order Comment: CLEAN CATCH Performed By: #### L 400.0001 #### [facility] [address] [place], [address] WBC 0-5 SEEN Normal 0-5 [facility] Comment on above: Order Comment: CLEAN CATCH Performed By: #### L 400.0001 #### [facility] [address] [place], [address] EPI,SQUAMOUS 0-5 SEEN Normal 5-10 [facility] Comment on above: Order Comment: CLEAN CATCH Performed By: #### L 400.0001 #### [facility] [address] [place], [address] Mucus Ql (Urine sed) 3+ /hpf Normal [facility] Comment on above: Order Comment: CLEAN CATCH Performed By: #### L 400.0001 #### [facility] [address] [place], [address] BACTERIA 0 SEEN Normal None Seen [facility] Comment on above: Order Comment: CLEAN CATCH Performed By: #### L 400.0001 #### [facility] [address] [place], [address] hCG Titer Quant., Serumon HCG QUANT. 288080 mIU/mL High 1-3 [facility] Comment on above: Result Comment: hCG levels with Gestational Age Gestational Age hCG mIU/mL (IU/L) 0.2 - 1 week 5 - 50 1-2 weeks 50 - 500 2-3 weeks 100 - 5000 3-4 weeks 500 - 04066 4-5 weeks 1000 - 13688 5-6 weeks 53851 - 100,000 6-8 weeks 54268 - 200,000 2-3 months 39041 - 100,000 Performed By: #### L 501.2450, L700.8000, L500.2500, L100.0100, L500.3400 #### [facility] [address] [place], [address] Comprehensive metabolic 2000 panelOrdered By: Bessy Bishop on 07-12-2024 Albumin [Mass/Vol] 4.7 g/dL 3.9 - 4.9 g/dL [facility] ALP [Catalytic activity/Vol] 57 U/L 34 - 123 U/L [facility] ALT [Catalytic activity/Vol] 17 U/L 7 - 38 U/L [facility] Anion gap [Moles/Vol] 11 mmol/L 8 - 15 mmol/L [facility] AST [Catalytic activity/Vol] 20 U/L 13 - 35 U/L [facility] Bilirubin [Mass/Vol] 0.7 mg/dL 0.2 - 1 .3 mg/dL [facility] Calcium [Mass/Vol] 10 mg/dL 8.5 - 10. 2 mg/dL [facility] Chloride [Moles/Vol] 101 mmol/L 98 - 10 7 mmol/L [facility] CO2 [Moles/Vol] 22 mmol/L 22 - 30 mmol/L [facility] Creatinine [Mass/Vol] 0.62 mg/dL 0.58 - 0.96 mg/dL [facility] GFR/1.73 sq M.predicted among non-blacks MDRD (S/P/Bld) [Vol rate/Area] 122 mL/min/{1.73_m2} - PINF [facility] Comment on above: Estimated Glomerular Filtration Rate [...] 114 mg/dL High 74 - 99 mg/dL [facility] Comment on above: The [place] [employer] [place] [employer] (ADA) provides guidance for [...] Standards of Medical Care in Diabetes 2016, [place] [employer]. Diabetes Care. 2016.39(Suppl 1). Interpretation and review of laboratory results Abnormal [facility] Potassium [Moles/Vol] 4 mmol/L 3.7 - 5.1 mmol/L [facility] Protein [Mass/Vol] 7.5 g/dL 6.3 - 8.0 g/dL [facility] Sodium [Moles/Vol] 134 mmol/L Low 136 - 144 mmol/L [facility] Urea nitrogen [Mass/Vol] 20 mg/dL 7 - 21 mg/dL [facility] Comprehensive metabolic 2000 panelon 07-12-2024 Albumin [Mass/Vol] 4.7 g/dL Normal 3.9-4.9 [facility] Comment on above: Order Comment: Mega figueroa Type: BLOOD SPECIMEN Ordering Facility: [facility] Address: [address] [place] [address] Performed By: #### T SPN #### [facility]LOOD [facility] [id number] [address] [place] [address] [place] ALP [Catalytic activity/Vol] 57 U/L Normal 34-123 [facility] Comment on above: Order Comment: Mega figueroa Type: BLOOD SPECIMEN Ordering Facility: [facility] Address: [address] [place], [place] [id number] Performed By: #### T SPN #### [facility]LOOD BANK CLIA [id number] [address] [place] [address] [place] ALT [Catalytic activity/Vol] 17 U/L Normal 7-38 [facility] Comment on above: Order Comment: Speci men Type: BLOOD SPECIMEN Ordering Facility: [facility] Address: [address] [place] [address] Performed By: #### T SPN #### [facility]LOOD B[facility] CLIA [id number] [address] [place] [address] [place] Anion gap [Moles/Vol] 11 mmol/L Normal 8-[address] [facility] Comment on above: Order Comment: Speci men Type: BLOOD SPECIMEN Ordering Facility: [facility] Address: [address] [place] [address] Performed By: #### T SPN #### [facility]LOOD B[facility] CLIA [id number] [address] [place] [address] [place] AST [Catalytic activity/Vol] 20 U/L Normal 13-35 [facility] Comment on above: Order Comment: Speci men Type: BLOOD SPECIMEN Ordering Facility: [facility] Address: [address] [place] [address] Performed By: #### T SPN #### [facility] BLOOD BANK CLIA [id number] [address] [place] [address] [place] Bilirubin [Mass/Vol] 0.7 mg/dL Normal 0.2-1.3 [facility] Comment on above: Order Comment: Speci men Type: BLOOD SPECIMEN Ordering Facility: [facility] Address: [address] [place] [address] Performed By: #### T SPN #### [facility]IN BLOOD BANK CLIA [id number] [address] [place] [address] [place] Calcium [Mass/Vol] 10.0 mg/dL Normal 8.5-10.2 [facility] Comment on above: Order Comment: Speci men Type: BLOOD SPECIMEN Ordering Facility: [facility] Address: [address] [place] [address] Performed By: #### T SPN #### [facility] BLOOD BANK CLIA [id number] [address] [place] [address] [place] Chloride [Moles/Vol] 101 mmol/L Normal 98-107 [facility] Comment on above: Order Comment: Speci men Type: BLOOD SPECIMEN Ordering Facility: [facility] Address: [address] [place] [address] Performed By: #### T SPN #### [facility] MAIN BLOOD BANK CLIA [id number] [address] [place] [address] [place] CO2 [Moles/Vol] 22 mmol/L Normal 22-30 [facility] Comment on above: Order Comment: Speci men Type: BLOOD SPECIMEN Ordering Facility: [facility] Address: [address] [place] [address] Performed By: #### T SPN #### [facility] BLOOD BANK CLIA [id number] [address] [place] [address] [place] Creatinine [Mass/Vol] 0.62 mg/dL Normal 0.58-0.[address] [facility] Comment on above: Order Comment: Speci men Type: BLOOD SPECIMEN Ordering Facility: [facility] Address: [address] [place] [address] Performed By: #### T SPN #### [facility] MAIN BLOOD BANK CLIA [id number] [address] [place] [address] [place] Creatinine and Glomerular filtration rate.predicted panel (S/P/Bld) 122 mL/min/1.73m??? Normal >=60 [facility] Comment on above: Order Comment: Speci men Type: BLOOD SPECIMEN Ordering Facility: [facility] Address: [address] [place] [address] Result Comment: Alba mated Glomerular Filtration Rate [...] SPN #### [facility] MAIN BLOOD BANK CLIA [id number] [address] [place] [address] [place] Glucose [Mass/Vol] 114 mg/dL High 74-99 [facility] Comment on above: Order Comment: Mega figueroa Type: BLOOD SPECIMEN Ordering Facility: [facility] Address: [address] [place] [address] Result Comment: The [place] [employer] (ADA) provides guidance for cutoff [...] Standards of Medical Care in Diabetes 2016, [place] [employer]. Diabetes Care. 2016.39(Suppl 1). Performed By: #### T SPN #### [facility]LOOD BANK CLIA [id number] [address] [place] [address] [place] Potassium [Moles/Vol] 4.0 mmol/L Normal 3.7-5.[address] [facility] Comment on above: Order Comment: Mega figueroa Type: BLOOD SPECIMEN Ordering Facility: [facility] Address: [address] [place] [address] Performed By: #### T SPN #### [facility]IN BLOOD BANK CLIA [id number] [address] [place] [address] [place] Protein [Mass/Vol] 7.5 g/dL Normal 6.3-8.0 [facility] Comment on above: Order Comment: Speci men Type: BLOOD SPECIMEN Ordering Facility: [facility] Address: [address] [place] [address] Performed By: #### T SPN #### [facility]IN BLOOD B[facility] CLIA [id number] [address] [place] [address] [place] Sodium [Moles/Vol] 134 mmol/L Low 136-144 [facility] Comment on above: Order Comment: Speci men Type: BLOOD SPECIMEN Ordering Facility: [facility] Address: [address] [place] [address] Performed By: #### T SPN #### [facility] MAIN BLOOD BANK CLIA [id number] [address] [place] [address] [place] Urea nitrogen [Mass/Vol] 20 mg/dL Normal 7-21 [facility] Comment on above: Order Comment: Speci men Type: BLOOD SPECIMEN Ordering Facility: [facility] Address: [address] [place] [address] Performed By: #### T SPN #### [facility] MAIN BLOOD BANK CLIA [id number] [address] [place] [address] [place] T4 Free SerPl-mCncon 025 Free T4 [Mass/Vol] 1.2 ng/dL Normal 0.9-1.7 [facility] Comment on above: Order Comment: Speci men Type: BLOOD SPECIMENOrdering Facility: [facility] Address: [address] [place] [address] Performed By: #### 3 024-7, 3016-3 ####[facility] LABCLIA [id number] [place] [address] [place] TSH SerPl-aCncon 07-12-2024 TSH Qn 1.520 m[IU]/L Normal 0.270-4.200 [facility] Comment on above: Order Comment: Speci men Type: BLOOD SPECIMENOrdering Facility: [facility] Address: [address] [place] [address] Result Comment: If t he patient is , TSH reference range varies by gestational period: First Trimester (weeks 9-12): 0.180-2.990 mIU/L Second Trimester: 0.110-3.980 mIU/L Third Trimester: 0.480-4.710 mIU/L Dionisio Meyers et al. A Practical Approach for the Verifications and Determination of Site- and Trimester-Specific Reference Intervals for Thyroid Function tests in . Thyroid, 2019:29:3:412-420. Héctor Arechiga, et al. 2017 Guidelines of the [place] Thy[employer] for the Diagnosis and Management of Thyroid Disease during and the . Thyroid, 2017:27:3:315-389. Performed By: #### 3 024-7, 3016-3 ####[facility] LABCLIA [id number] [facility] [id number] [place] [address] [place] URINE OB DIP B/Oon 3 Glucose Ql (U) Negative Neg mg/dL [facility] Protein.monoclonal (U) [Mass/Vol] Negative Neg mg/dL [facility] URINE OB DIP B/Oon 3 Glucose Ql (U) Negative Neg mg/dL [facility] Protein.monoclonal (U) [Mass/Vol] Negative Neg mg/dL [facility] URINE OB DIP B/Oon 3 Glucose Ql (U) Negative Neg mg/dL [facility] Protein.monoclonal (U) [Mass/Vol] Negative Neg mg/dL [facility] URINE OB DIP B/Oon 3 Glucose Ql (U) Negative Neg mg/dL [facility] Protein.monoclonal (U) [Mass/Vol] Negative Neg mg/dL [facility] URINE OB DIP B/Oon 3 Glucose Ql (U) Negative Neg mg/dL [facility] Protein.monoclonal (U) [Mass/Vol] Negative Neg mg/dL [facility] URINE OB DIP B/Oon 3 Glucose Ql (U) Negative Neg mg/dL [facility] Protein.monoclonal (U) [Mass/Vol] Negative Neg mg/dL [facility] URINE OB DIP B/Oon 3 Glucose Ql (U) Negative Neg mg/dL [facility] Protein.monoclonal (U) [Mass/Vol] trace Neg mg/dL [facility] URINE OB DIP B/Oon 3 Glucose Ql (U) Negative Neg mg/dL [facility] Protein.monoclonal (U) [Mass/Vol] Negative Neg mg/dL [facility] URINE OB DIP B/Oon 3 Glucose Ql (U) Negative Neg mg/dL [facility] Protein.monoclonal (U) [Mass/Vol] Negative Neg mg/dL [facility] Absolute lymphocyte countOrd ered By: Dr. Ferris on 08-28-2022 Lymphocytes Auto (Unsp spec) [#/Vol] 0.91 10*3/uL 0.83-4.51 [facility] Basophil percentageOrdered B y: Dr. Ferris on 08-28-2022 Basophil percentage 5-10 SEEN /hpf 0-5 [facility] Basophils/100 WBC (Bld) 0.6 % 0-1 [facility] Bilirubin [Mass/Vol] 0.40 mg/dL 0.20-1.00 [facility] Comment on above: For patients on eltr ombopag therapy, use of Dimension [place] TBIL is not recommended. Chloride [Moles/Vol] 107 mmol/L 98-107 [facility] Eosinophils/100 WBC (Bld) 0.4 % 0-5 [facility] Glucose [Mass/Vol] 79 mg/dL 74-106 [facility] Neutrophils (Bld) [#/Vol] 5.0 10*3/uL 2.0-7.7 [facility] Neutrophils/100 WBC (Bld) 74.4 % 47-70 [facility] Potassium [Moles/Vol] 3.5 mmol/L 3.5-5.1 [facility] Protein [Mass/Vol] 6.2 g/dL 6.4-8.2 [facility] Sodium [Moles/Vol] 138 mmol/L 136-145 [facility] WBC (Bld) [#/Vol] 6.8 10*3/uL 4.4-11.0 [facility] Bilirubin Test strip Ql (U)O rdered By: Dr. Ferris on 08-28-2022 Bilirubin Ql (U) 1 mg/dL Negative [facility] Comment on above: COLOR OF URINE MAY A FFECT DIPSTICK RESULTS. Blood erythrocytes count (nu mber/volume)Ordered By: Dr. Ferris on 08-28-2022 RBC (Bld) [#/Vol] 4.41 10*6/uL 4.2-5.4 [facility] Blood hemoglobin measurement (mass/volume)Ordered By: Dr. Ferris on 08-28-2022 Hemoglobin (Bld) [Mass/Vol] 14.2 g/dL 12.0-15.0 [facility] Blood lymphocytes/100 leukoc ytesOrdered By: Dr. Ferris on 08-28-2022 Lymphocytes/100 WBC (Bld) 13.5 % 19-41 [facility] Blood monocytes/100 leukocyt esOrdered By: Dr. Ferris on 08-28-2022 Monocytes/100 WBC (Bld) 9.8 % 0-10 [facility] Blood platelet mean volumeOr dered By: Dr. Ferris on 08-28-2022 Platelet mean volume (Bld) [Entitic vol] 9.5 fL 6.2-12.0 [facility] Determination of erythrocyte mean corpuscular volume (MCV)Ordered By: Dr. Ferris on 08-28-2022 MCV (RBC) [Entitic vol] 94.6 fL 81-99 [facility] Hematocrit Auto (Bld) [Volum e fraction]Ordered By: Dr. Ferris on 08-28-2022 Hematocrit (Bld) [Volume fraction] 41.7 % 37-47 [facility] Ketones Test strip Ql (U)Ord ered By: Dr. Ferris on 08-28-2022 Ketones Ql (U) 150 mg/dl Negative [facility] Comment on above: CRITICAL VALUE *HCRI TICAL VALUE VERIFIED. CALLED TO MARIAMA MOONEY08/28/221947 True Bowling.RESULTS READ BACK BY SAME . Laboratory - Chemistry and C hemistry - challengeOrdered By: Dr. Ferris on 08-28-2022 ALP [Catalytic activity/Vol] 65 U/L 45-117 [facility] ALT [Catalytic activity/Vol] 16 U/L 13-56 [facility] CO2 [Moles/Vol] 21.0 mmol/L 21.0-32.0 [facility] Globulin (S) [Mass/Vol] 3.6 g/dL 2.2-4.2 [facility] Lipase [Catalytic activity/Vol] 91 U/L 73-393 [facility] Urea nitrogen/Creatinine [Mass ratio] 26.0 mg/mg 10-20 [facility] Laboratory - Hematology and Cell countsOrdered By: Dr. Ferris on 08-28-2022 Erythrocyte distribution width (RBC) [Entitic vol] 48.2 fL 35.1-43.9 [facility] Erythrocyte distribution width (RBC) [Ratio] 13.8 % 11.6-14.6 [facility] Immature granulocytes/100 WBC (Bld) 1.300 % 0.0-0.9 [facility] Comment on above: IG% - Immature Granu locytes (promyelocytes, myelocytes and metamyelocytes) > 1% indicates that a LEFT SHIFT is Present. MCH (RBC) [Entitic mass] 32.2 pg 27.0-32.0 [facility] Nucleated RBC/100 WBC (Bld) [Ratio] 0 % 0-5 [facility] MCHC Auto (RBC) [Mass/Vol]Or dered By: Dr. Ferris on 08-28-2022 MCHC (RBC) [Mass/Vol] 34.1 g/dL 32-36 [facility] Mucus LM Ql (Urine sed)Order ed By: Dr. Ferris on 08-28-2022 Mucus Ql (Urine sed) 0 SEEN /hpf [facility] Nitrite Test strip Ql (U)Ord ered By: Dr. Ferris on 08-28-2022 Nitrite Ql (U) Negative Negative [facility] No Panel InformationOrdered By: Dr. Ferris on 08-28-2022 Estimated Creatinine Clearance Calc 109.75 ml/min [facility] Estimated GFR (MDRD) Amer 147 mL/min >60 [facility] Comment on above: GFR Calc Estimated GFR (MDRD) Non-Af Amer 121 mL/min >60 [facility] Comment on above: Non- GFR Calc Platelets bldOrdered By: Dr. Ferris on 08-28-2022 Platelets (Bld) [#/Vol] 234 10*3/uL 150-450 [facility] Protein Test strip Ql (U)Ord ered By: Dr. Ferris on 08-28-2022 Protein Ql (U) 30 mg/dl Negative [facility] Serum or plasma albumin luisito urement (mass/volume)Ordered By: Dr. Ferris on 08-28-2022 Albumin [Mass/Vol] 2.6 g/dL 3.2-5.0 [facility] Serum or plasma albumin/glob ulin mass ratioOrdered By: Dr. Ferris on 08-28-2022 Albumin/Globulin [Mass ratio] 0.7 {ratio} 0.9-2.4 [facility] Serum or plasma calcium luisito urement (mass/volume)Ordered By: Dr. Ferris on 08-28-2022 Calcium [Mass/Vol] 8.5 mg/dL 8.5-10.1 [facility] Serum or plasma creatinine m easurement (mass/volume)Ordered By: Dr. Ferris on 08-28-2022 Creatinine [Mass/Vol] 0.62 mg/dL 0.55-1.02 [facility] Comment on above: The validity of the calculated GFR & GFRAA in patients over 70 years has not been determined. Clinical correlation is essential. Serum or plasma urea nitroge n measurement (mass/volume)Ordered By: Dr. Ferris on 08-28-2022 Urea nitrogen [Mass/Vol] 16 mg/dL 7-18 [facility] Squamous epithelial cells de tection in urine sediment by light microscopyOrdered By: Dr. Ferris on 08-28-2022 Epithelial cells.squamous LM Ql (Urine sed) 5-10 SEEN /hpf 5-10 [facility] Thin prep Papanicolaou smear with manual screeningOrdered By: Dr. Ferris on 08-28-2022 Thin prep Papanicolaou smear with manual screening 16 U/L 15-37 [facility] Thin prep Papanicolaou smear with manual screening 10 5-15 [facility] Urine blood detectionOrdered By: Dr. Ferris on 08-28-2022 RBC Ql (U) 10 /ul Negative [facility] RBC Ql (U) 0-5 SEEN /hpf 0-5 [facility] Urine clarityOrdered By: Dr. Ferris on 08-28-2022 Clarity (U) Clear Clear [facility] Urine color determinationOrd ered By: Dr. Ferris on 08-28-2022 Color (U) Yellow Yellow [facility] Urine glucose detectionOrder ed By: Dr. Ferris on 08-28-2022 Glucose Ql (U) Normal mg/dl Normal [facility] Urine leukocyte esterase det ection by dipstickOrdered By: Dr. Ferris on 08-28-2022 Leukocyte esterase Test strip Ql (U) 25 /ul Negative [facility] Urine pHOrdered By: Dr. Ferris on 08-28-2022 pH (U) 6.0 [pH] 5.0 - 8.0 [facility] Urine sediment bacteria coun t by microscopy (number/high power field)Ordered By: Dr. Ferris on 08-28-2022 Bacteria LM.HPF (Urine sed) [#/Area] 1 /[HPF] None Seen [facility] Urine specific gravity measu rementOrdered By: Dr. Ferris on 08-28-2022 Specific gravity (U) [Rel density] 1.025 1.002-1.030 [facility] Urobilinogen Auto test strip Ql (U)Ordered By: Dr. Ferris on 08-28-2022 Urobilinogen Ql (U) 1 mg/dl Normal [facility] URINE OB DIP B/Oon 3 Glucose Ql (U) Negative Neg mg/dL [facility] Protein.monoclonal (U) [Mass/Vol] Negative Neg mg/dL [facility] C. trachomatis+N. gonorrhoea e DNA TRISH+probe Ql (Unsp spec)on 05-11-2022 C. trachomatis DNA TRISH+probe Ql (Unsp spec) Negative Negative for Chlamydia trachomatis by amplificaton [facility] N. gonorrhoeae DNA TRISH+probe Ql (Unsp spec) Negative Negative for Neisseria gonorrhoeae by amplification [facility] URINE CULTUREon 05-11-2022 Bacteria identified Cx Nom (U) <10,000 CFU/ml Normal urogenital mateo [facility] Post Op (General Surgery)on 11-30-2021 Post Op [...] 3 weeks ago. Patient recently [facility]. surgical pathology revealed a gallbladder with [...] Donahue PA-C General and Trauma surgery Office: [phone] Active Problems Abdominal pain (789.00) (R10.9) Abdominal [...] tablet by mouth once daily Results/Data Surgical [id number] 11:11AAlfredo Rubalcava Test NameResultFlagReference Case Surgical Pathology(Report) Name RAMONA WAHLTresa Pathologist: TONI VILLELA M.D., PhD. Date of Procedure: 11/06/2021 Date Received: 11/06/2021 Date Reported 11/15/2021 Submitting Physician: ALFREDO BOWDEN MD Location: [facility] Surg Copy To/Referring/Attending: FRIDA LIEBERMAN D.O. Other External # FINAL DIAGNOSIS A. GALLBLADDER: --GALLBLADDER, NO SIGNIFICANT PATHOLOGIC FINDINGS Electronically Signed Out By TONI VILLELA M.D., PhD./WLI By the signature on this report, the individual or group listed as making the Final Interpretation/Diagnosis certifies that they have reviewed this case. Diagnostic interpretation performed at [facility] [address] [facility] [address] Clinical History: Physician Contact Number: [facility] Fixative (A): Formalin Clinical Diagnosis History [...] ( test) Ql (U) Negative Normal Negative [facility] Comment on above: Result Comment: POCT Performed By: #### H CGU #### [facility] [address] [place] [address] No Panel Informationon 11-06 [facility] Work Phone: [facility] Surgical Pathology Depar tmenton 11-06-2021 [facility] Surgical Pathology Department Name RAMONA WAHL Pathologist: TONI VILLELA M.D., PhD. Date of Procedure: 11/06/2021 Date Received: 11/06/2021 Date Reported 11/15/2021 Submitting Physician: ALFREDO BOWDEN MD Location: [facility] Copy To/Referring/Attending: FRIDA LIEBERMAN D.O. Other External # FINAL DIAGNOSIS A. GALLBLADDER: --GALLBLADDER, NO SIGNIFICANT PATHOLOGIC FINDINGS Electronically Signed Out By TONI VILLELA M.D., PhD./WLI By the signature on this report, the individual or group listed as making the Final Interpretation/Diagnosis certifies that they have reviewed this case. Diagnostic interpretation performed at [facility] [address] [facility] [address] Clinical History: Physician Contact Number: HALO Fixative [...] grossly identified adjacent to the cystic duct. [employer] sections consisting of the cystic duct margin, and gallbladder wall, are submitted in one cassette. TAYLOR mjqing/11/09/2021 [facility] Department of Pathology [address] [place] [address] Normal [facility] Comment on above: Performed By: #### M G #### [facility] [address] [place] [address] Urine Teston 11-06 HCG ( test) Ql (U) Negative Negative -[facility] Work Phone: Comment on above: POCT CORONAVIRUS 2019, SCREEN ASY MPTOMATICon 11-03-2021 SARS-CoV-2 (COVID-19) RNA TRISH+probe Ql (Unsp spec) Not detected Normal Not Detected [facility] Comment on above: Result Comment: [...] patient management decisions. Fact sheet for providers: https://www.fda.gov/media/505412/download Fact sheet for patients: https://www.fda.gov/media/278459/download This test has received FDA Emergency Use Authorization (EUA) and has been verified by [facility] ([facility]). This test is only authorized for the duration of time that circumstances exist to justify the authorization of the emergency use of in vitro diagnostic tests for the detection of SARS-CoV-2 virus and/or diagnosis of COVID-19 infection under section 564(b)(1) of the Act, 21 U.S.C. 360bbb-3(b)(1), unless the authorization is terminated or revoked sooner. [facility] is certified under CLIA-88 as qualified to perform high complexity testing. Testing is performed in the [facility] laboratories located at [address] [place] [address]. Performed By: #### M G #### [address] [address] Lab Specimen Source Nasal, Nasopharyngeal Normal [facility] Comment on above: Performed By: #### M G #### [address] [address] Coronavirus 2019 RNA by PCR, Screening Asymptomticon 11-03-2021 Coronavirus 2019 RNA by PCR, Screening Asymptomtic Not detected Normal See Below -[facility] fatima Work Phone: Comment on [...] make patient management decisions.Fact sheet for providers: https://www.fda.gov/media/985351/downloadFact sheet for patients: https://www.fda.gov/media/684209/downloadThis test has received FDA Emergency Use Authorization (EUA) and has been verified by [facility] ([facility]). This test is only authorized for the duration of time that circumstances exist to justify the authorization of the emergency use of in vitro diagnostic tests for the detection of SARS-CoV-2 virus and/or diagnosis of COVID-19 infection under section 564(b)(1) of the Act, 21 U.S.C. 360bbb-3(b)(1), unless the authorization is terminated or revoked sooner. [facility] is certified under CLIA-88 as qualified to perform high complexity testing. Testing is performed in the [facility] laboratories located at [address] [place] [address]. Covid 19 Resultson 2 SARS-CoV-2 (COVID-19) RNA [...] You may also be contacted by the [facility] to see if any of [...] or Naproxen (Aleve) can also be used. Miex-czv-kkpfbij cough and cold medicines can be used according to the instructions on the package. Some adrf-spo-mldaydr medicines also contain acetaminophen. Make sure you [...] water are not available, use alcohol-based hand excelsior machine tender. Avoid touching your eyes, nose, and mouth [...] 24 pennie (more content not included)... Normal [facility] CBC AND DIFFERENTIALon 10-26 Basophils (Bld) [#/Vol] 0.10 10*3/uL Normal 0.00 - 0.10 [facility] Comment on above: Performed By: #### C BCDF #### [address] [address] Basophils/100 WBC (Bld) 0.9 % Normal 0.0 - 2.0 [facility] Comment on above: Performed By: #### C BCDF #### [address] [address] Eosinophils (Bld) [#/Vol] 0.40 10*3/uL Normal 0.00 - 0.70 [facility] Comment on above: Performed By: #### C BCDF #### [address] [address] Eosinophils/100 WBC (Bld) 6.1 % Normal 0.0 - 6.0 [facility] Comment on above: Performed By: #### C BCDF #### [address] [address] Erythrocyte distribution width (RBC) [Ratio] 12.6 % Normal 11.5 - 14.5 [facility] Comment on above: Performed By: #### C BCDF #### [address] [address] Hematocrit (Bld) [Volume fraction] 41.7 % Normal 36.0 - 46.0 [facility] Comment on above: Performed By: #### C BCDF #### [address] [address] Hemoglobin (Bld) [Mass/Vol] 14.2 g/dL Normal 12.0 - 16.0 [facility] Comment on above: Performed By: #### C BCDF #### [address] [address] Lymphocytes (Bld) [#/Vol] 2.00 10*3/uL Normal 1.20 - 4.80 [facility] Comment on above: Performed By: #### C BCDF #### [address] [address] Lymphocytes/100 WBC (Bld) 27.7 % Normal 13.0 - 44.0 [facility] Comment on above: Performed By: #### C BCDF #### [address] [address] MCHC (RBC) [Mass/Vol] 34.1 g/dL Normal 32.0 - 36.0 [facility] Comment on above: Performed By: #### C BCDF #### [address] [address] MCV (RBC) [Entitic vol] 89 fL Normal 80 - 100 [facility] Comment on above: Performed By: #### C BCDF #### [address] [address] Monocytes (Bld) [#/Vol] 0.70 10*3/uL Normal 0.10 - 1.00 [facility] Comment on above: Performed By: #### C BCDF #### [address] [address] Monocytes/100 WBC (Bld) 9.5 % Normal 2.0 - 10.0 [facility] Comment on above: Performed By: #### C BCDF #### [address] [address] Neutrophils (Bld) [#/Vol] 4.10 10*3/uL Normal 1.20 - 7.70 [facility] Comment on above: Result Comment: Perc ent differential counts (%) should be interpreted in the context of the absolute cell counts (cells/L). Performed By: #### C BCDF #### [address] [address] Neutrophils/100 WBC (Bld) 55.8 % Normal 40.0 - 80.0 [facility] Comment on above: Performed By: #### C BCDF #### [address] [address] Platelets (Bld) [#/Vol] 233 10*3/uL Normal 150 - 450 [facility] Comment on above: Performed By: #### C BCDF #### [address] [address] RBC 4.71 x10E12/L Normal 4.00 - 5.20 [facility] Comment on above: Performed By: #### C BCDF #### [address] [address] WBC (Bld) [#/Vol] 7.4 10*3/uL Normal 4.4 - 11.3 [facility] Comment on above: Performed By: #### C BCDF #### [address] [address] Complete Blood Count + Diffe rentialon 10-26-2021 Basophils/100 WBC (Bld) 0.9 % 0.0 - 2.0 [facility] [employer] Work Phone: Erythrocyte distribution width (RBC) [Ratio] 12.6 % See Below [facility] Work Phone: Comment on above: Reference Range: 11. 5 - 14.5 Hematocrit (Bld) [Volume fraction] 41.7 % See Below [facility] Work Phone: Comment on above: Reference Range: 36. 0 - 46.0 Hemoglobin (Bld) [Mass/Vol] 14.2 g/dL See Below [facility] Work Phone: Comment on above: Reference Range: 12. 0 - 16.0 Lymphocytes/100 WBC (Bld) 27.7 % See Below [facility] Work Phone: Comment on above: Reference Range: 13. 0 - 44.0 MCHC (RBC) [Mass/Vol] 34.1 g/dL See Below [facility] [employer] Work Phone: [phone] Comment on above: Reference Range: 32. 0 - 36.0 MCV (RBC) [Entitic vol] 89 fL 80 - 100 [facility] Work Phone: [phone] Monocytes/100 WBC (Bld) 9.5 % 2.0 - 10.[address] [facility] [employer] Work Phone: [phone] Neutrophils/100 WBC (Bld) 55.8 % See Below [facility] [employer] Work Phone: [phone] Comment on above: Reference Range: 40. 0 - 80.0 Platelets (Bld) [#/Vol] 233 10*3/uL 150 - [address] [facility] [employer] Work Phone: [phone] RBC (Bld) [#/Vol] 4.71 {x10E12/L} See Below [facility] [employer] Work Phone: [phone] Comment on above: Reference Range: 4.0 0 - 5.20 WBC (Bld) [#/Vol] 7.4 10*3/uL 4.4 - 11.3 [facility]- [employer] Work Phone: [phone] Complete Blood Count + Differential 0.10 {x10E9/L} See Below [facility] [employer] Work Phone: [phone] Comment on above: Reference Range: 0.0 0 - 0.10 Complete Blood Count + Differential 0.40 {x10E9/L} See Below [facility] [employer] Work Phone: [phone] Comment on above: Reference Range: 0.0 0 - 0.70 Complete Blood Count + Differential 0.70 {x10E9/L} See Below [facility] [employer] Work Phone: [phone] Comment on above: Reference Range: 0.1 0 - 1.00 Complete Blood Count + Differential 2.00 {x10E9/L} See Below [facility] [employer] Work Phone: Comment on above: Reference Range: 1.2 0 - 4.80 Complete Blood Count + Differential 4.10 {x10E9/L} See Below [facility] elsy Work Phone: Comment on above: Reference Range: 1.2 0 - 7.70 Percent differential counts (%) should be interpreted in the context of the absolute cell counts (cells/L). Complete Blood Count + Differential 6.1 % 0.0 - 6.0 [facility] elsy Work Phone: HEPATIC FUNCTION PANELon Albumin [Mass/Vol] 4.4 g/dL Normal 3.4 - 5.0 [facility] Comment on above: Performed By: #### H EPFP #### [address] [address] Performed By: #### M G #### [address] [address] ALP [Catalytic activity/Vol] 57 U/L Normal 33 - 110 [facility] Comment on above: Performed By: #### H EPFP #### [address] [address] ALT [Catalytic activity/Vol] 22 U/L Normal 7 - 45 [facility] Comment on above: Result Comment: Feli ents treated with Sulfasalazine may generate falsely decreased results for ALT. Performed By: #### H EPFP #### [address] [address] AST [Catalytic activity/Vol] 18 U/L Normal 9 - 39 [facility] Comment on above: Performed By: #### H EPFP #### [address] [address] Bilirubin [Mass/Vol] 0.4 mg/dL Normal 0.0 - 1.2 [facility] Comment on above: Performed By: #### H EPFP #### [address] [address] Bilirubin.indirect [Mass/Vol] 0.1 mg/dL Normal 0.0 - 0.3 [facility] Comment on above: Performed By: #### H EPFP #### [address] [place] [address] Protein [Mass/Vol] 6.8 g/dL Normal 6.4 - 8.2 [facility] Comment on above: Performed By: #### H EPFP #### [address] [place] [address] Hepatic Function Panelon Albumin BCP dye [Mass/Vol] 4.4 g/dL 3.4 - 5.0 [facility] [employer] Work Phone: [phone] ALP [Catalytic activity/Vol] 57 U/L 33 - 110 -[facility] [place] [place] Work Phone: [phone] ALT With P-5'-P [Catalytic activity/Vol] 22 U/L 7 - 45 [facility] [employer] Work Phone: [phone] Comment on above: Patients treated wit h Sulfasalazine may generate falsely decreased results for ALT. AST With P-5'-P [Catalytic activity/Vol] 18 U/L 9 - 39 -[facility] [employer] Work Phone: [phone] Bilirubin [Mass/Vol] 0.4 mg/dL 0.0 - 1.2 [facility] [employer] Work Phone: [phone] Bilirubin.direct [Mass/Vol] 0.1 mg/dL 0.0 - 0.3 -[facility] [employer] Work Phone: [phone] Protein [Mass/Vol] 6.8 g/dL 6.4 - 8.2 [facility] [employer] Work Phone: Laboratory - Coagulationon 0 10-26-2021 INR Coag (PPP) [Relative time] 1.1 {INR} 0.9 - 1.1 [facility] [place] [place] Work Phone: [phone] PT Coag (PPP) [Time] 12.5 s 9.8 - 13.4 [facility] [place] [place] Work Phone: [phone] MAGNESIUMon 10-26-2021 Magnesium [Mass/Vol] 2.03 mg/dL Normal 1.60 - 2.40 [facility] Comment on above: Performed By: #### M G #### [address] [address] Magnesium, Serumon Magnesium [Mass/Vol] 2.03 mg/dL See Below [facility] Work Phone: Comment on above: Reference Range: 1.6 0 - 2.40 PT/INRon 10-26-2021 PT Coag (PPP) [Time] 12.5 s Normal 9.8 - 13.4 [facility] Comment on above: Performed By: #### P TINR #### [address] [address] PT, INR 1.1 Normal 0.9 - 1.1 [facility] Comment on above: Performed By: #### P TINR #### [address] [address] RENAL FUNCTION PANELon 10-26 Anion gap [Moles/Vol] 10 mmol/L Normal 10 - 20 [facility] Comment on above: Performed By: #### M G #### [address] [address] Calcium [Mass/Vol] 9.0 mg/dL Normal 8.6 - 10.3 [facility] Comment on above: Performed By: #### M G #### [address] [address] Chloride [Moles/Vol] 107 mmol/L Normal 98 - 107 [facility] Comment on above: Performed By: #### M G #### [address] [address] Creatinine [Mass/Vol] 0.99 mg/dL Normal 0.50 - 1.05 [facility] Comment on above: Performed By: #### M G #### [address] [address] GFR/1.73 sq M.predicted among non-blacks MDRD (S/P/Bld) [Vol rate/Area] 79 mL/min/{1.73_m2} Normal >90 [facility] Comment on above: Result Comment: CALC ULATIONS OF ESTIMATED GFR ARE PERFORMED USING THE 2020 CKD-EPI STUDY REFIT EQUATION WITHOUT THE RACE VARIABLE FOR THE IDMS-TRACEABLE CREATININE METHODS. https://jasn.asnjournals.org/content//ASN.853745 9623 Performed By: #### M G #### [address] [address] Glucose [Mass/Vol] 86 mg/dL Normal 74 - 99 [facility] Comment on above: Performed By: #### M G #### [address] [address] HCO3 (Bld) [Moles/Vol] 24 mmol/L Normal 21 - 32 [facility] Comment on above: Performed By: #### M G #### [address] [address] Phosphate [Mass/Vol] 3.2 mg/dL Normal 2.5 - 4.9 [facility] Comment on above: Result Comment: The performance characteristics of phosphorus testing in heparinized plasma have been validated by the individual laboratory site where testing is performed. Testing on heparinized plasma is not approved by the FDA; however, such approval is not necessary. Performed By: #### M G #### [address] [address] Potassium [Moles/Vol] 3.7 mmol/L Normal 3.5 - 5.3 [facility] Comment on above: Performed By: #### M G #### [address] [address] Sodium [Moles/Vol] 137 mmol/L Normal 136 - 145 [facility] Comment on above: Performed By: #### M G #### [address] [address] Urea nitrogen [Mass/Vol] 17 mg/dL Normal 6 - 23 [facility] Comment on above: Performed By: #### M G #### [address] [address] Renal Function Panelon 10-26 Anion gap [Moles/Vol] 10 mmol/L 10 - 20 - [facility] Work Phone: [phone] Calcium [Mass/Vol] 9.0 mg/dL 8.6 - 10.3 [facility] Work Phone: [phone] Chloride [Moles/Vol] 107 mmol/L 98 - 107 MP-U niv [facility] Work Phone: [phone] CO2 [Moles/Vol] 24 mmol/L 21 - 32 -[facility] Work Phone: [phone] Creatinine [Mass/Vol] 0.99 mg/dL See Below - [facility] Work Phone: [phone] Comment on above: Reference Range: 0.5 0 - 1.05 Glucose [Mass/Vol] 86 mg/dL 74 - 99 -[facility] Work Phone: [phone] Phosphate [Mass/Vol] 3.2 mg/dL 2.5 - 4.9 MP-U [facility] Work Phone: [phone] Comment on above: The performance lupe acteristics of phosphorus testing in heparinized plasma have been validated by the individual laboratory site where testing is performed. Testing on heparinized plasma is not approved by the FDA; however, such approval is not necessary. Potassium [Moles/Vol] 3.7 mmol/L 3.5 - 5.3 - [facility] Work Phone: [phone] Sodium [Moles/Vol] 137 mmol/L 136 - 145 -[facility] Work Phone: [phone] Urea nitrogen [Mass/Vol] 17 mg/dL 6 - 23 -[facility] Work Phone: [phone] Renal Function Panel 79 {mL/min/1.73m2} >90 -[facility] Work Phone: [phone] Comment on above: CALCULATIONS OF ALBA MATED GFR ARE PERFORMED USING THE 2020 CKD-EPI STUDY REFIT EQUATION WITHOUT THE RACE VARIABLE FOR THE IDMS-TRACEABLE CREATININE METHODS.https://jasn.asnjournals.org/content/early/ N.5049000085 Initial Visit (General Surge ry)on 08-03-2021 Initial [...] Carlos Manuel Bowden MD General Surgery Office: [phone] Chief Complaint Evaluation of ruq pain, gallbladder. History of Present Jyepmek27V who presents today for evaluation of right [...] pain, RUQ (more content not included)... Normal [facility] CORONAVIRUSon 06-08-2021 SARS-CoV-2 (COVID-19) RNA [...] on the FDA website: https://www.fda.gov/Medi calDevices/Safety/ EmergencySituations/ucm1 69508.htm This test was developed and its performance characteristics determined by [facility]'s Sherif Villegas [facility] Pathology [facility] [place]. This test has been authorized by FDA [...] COVID-19 Negative for COVID-19 (SARS-CoV-2 RNA) Normal [facility] Comment on above: Order Comment: COVID Testing: DIAGNOSTIC/ASYMPTOMATIC AGE at Spec BONITA 30 Report age at specimen BONITA? Y First test: NO Employed in Healthcare: NO Symptomatic as defined by CDC: NO Hospitalized for COVID-19? NO ICU: NO Resident in a Congregated Care Setting: NO Order Date: 06/07/21 : Not Performed By: #### M [phone] #### Test performed at: [address] [address] Office Visit (Family Anatoliy arechiga)on 03-07-2021 Follow-up [...] eye Vitals Vital Signs Recorded: 07Mar2021 03:24PM Xoedggvzyql11.1 F Heart Rate70 Bcthayxzbwy75 Uoqxpuuq527 Ceryxrued40 Height5 ft 3 in Cclqjj781 lb 3.2 oz BMI Dpovazxunw95.47 kg/m2 BSA Calculated1.56 O2 Enskyobssa31 Physical Exam Constitutional: Alert and in no [...] left mulitiple times. COMPARISON: None. ACCESSION NUMBER(S): [id number] ORDERING CLINICIAN: FRIDA LIEBERMAN TECHNIQUE: Axial sections [...] Electronically signed by: BEAU WALLACE MD Normal [facility] CT Head without Contraston 0 02-27-2021 CT Head limited WO contrast Normal [facility] Work Phone: CBCon 02-14-2021 Erythrocyte distribution width (RBC) [Ratio] 12.3 % Normal 11.5 - 14.5 [facility] Comment on above: Order Comment: PATIE NT FASTING Performed By: #### C #### [place] [address] [place] [address] Hematocrit (Bld) [Volume fraction] 44.8 % Normal 36.0 - 46.0 [facility] Comment on above: Order Comment: PATIE NT FASTING Performed By: #### C BC #### [place] [id number] Hemoglobin (Bld) [Mass/Vol] 14.0 g/dL Normal 12.0 - 16.0 [facility] Comment on above: Order Comment: PATIE NT FASTING Performed By: #### C BC #### [place] [id number] MCHC (RBC) [Mass/Vol] 31.3 g/dL Low 32.0 - 36.0 [facility] Comment on above: Order Comment: PATIE NT FASTING Performed By: #### C BC #### [place] [id number] MCV (RBC) [Entitic vol] 95 fL Normal 80 - 100 [facility] Comment on above: Order Comment: PATIE NT FASTING Performed By: #### C BC #### [place] [address] Platelets (Bld) [#/Vol] 267 10*3/uL Normal 150 - 450 [facility] Comment on above: Order Comment: PATIE NT FASTING Performed By: #### C BC #### [place] [id number] RBC 4.74 x10E12/L Normal 4.00 - 5.20 [facility] Comment on above: Order Comment: PATIE NT FASTING Performed By: #### C BC #### [place] [id number] WBC (Bld) [#/Vol] 6.4 10*3/uL Normal 4.4 - 11.3 [facility] Comment on above: Order Comment: PATIE NT FASTING Performed By: #### C BC #### [place] [id number] COMPREHENSIVE PANELon 2020 Albumin [Mass/Vol] 3.8 g/dL Normal 3.4 - 5.0 [facility] Comment on above: Order Comment: PATIE NT FASTING Performed By: #### C MP #### [address] [address] ALP [Catalytic activity/Vol] 71 U/L Normal 33 - 110 [facility] Comment on above: Order Comment: PATIE NT FASTING Performed By: #### C MP #### [address] [address] ALT [Catalytic activity/Vol] 16 U/L Normal 7 - 45 [facility] Comment on above: Order Comment: PATIE NT FASTING Result Comment: Feli ents treated with Sulfasalazine may generate falsely decreased results for ALT. Performed By: #### C MP #### [address] [address] Anion gap [Moles/Vol] 9 mmol/L Low 10 - 20 [facility] Comment on above: Order Comment: PATIE NT FASTING Performed By: #### C MP #### [address] [address] AST [Catalytic activity/Vol] 16 U/L Normal 9 - 39 [facility] Comment on above: Order Comment: PATIE NT FASTING Performed By: #### C MP #### [address] [address] Bilirubin [Mass/Vol] 0.5 mg/dL Normal 0.0 - 1.2 [facility] Comment on above: Order Comment: PATIE NT FASTING Performed By: #### C MP #### [address] [address] Calcium [Mass/Vol] 9.4 mg/dL Normal 8.6 - 10.3 [facility] Comment on above: Order Comment: PATIE NT FASTING Performed By: #### C MP #### [address] [address] Chloride [Moles/Vol] 107 mmol/L Normal 98 - 107 [facility] Comment on above: Order Comment: PATIE NT FASTING Performed By: #### C MP #### [address] [address] Creatinine [Mass/Vol] 0.79 mg/dL Normal 0.50 - 1.05 [facility] Comment on above: Order Comment: PATIE NT FASTING Performed By: #### C MP #### [address] [address] GFR- AM. >60 Normal >60 [facility] Comment on above: Order Comment: PATIE NT FASTING Result Comment: CALC ULATIONS OF ESTIMATED GFR ARE PERFORMED USING THE MDRD STUDY EQUATION FOR THE IDMS-TRACEABLE CREATININE METHODS. CLIN CHEM 2007;53:766-72 Performed By: #### C MP #### [address] [address] GFR-NON AM. >60 Normal >60 [facility] Comment on above: Order Comment: PATIE NT FASTING Performed By: #### C MP #### [address] [address] Glucose [Mass/Vol] 73 mg/dL Low 74 - 99 [facility] Comment on above: Order Comment: PATIE NT FASTING Performed By: #### C MP #### [address] [address] HCO3 (Bld) [Moles/Vol] 28 mmol/L Normal 21 - 32 [facility] Comment on above: Order Comment: PATIE NT FASTING Performed By: #### C MP #### [address] [address] Potassium [Moles/Vol] 4.2 mmol/L Normal 3.5 - 5.3 [facility] Comment on above: Order Comment: PATIE NT FASTING Performed By: #### C MP #### [address] [address] Protein [Mass/Vol] 6.5 g/dL Normal 6.4 - 8.2 [facility] Comment on above: Order Comment: PATIE NT FASTING Performed By: #### C MP #### [address] [address] Sodium [Moles/Vol] 140 mmol/L Normal 136 - 145 [facility] Comment on above: Order Comment: PATIE NT FASTING Performed By: #### C MP #### [address] [address] Urea nitrogen [Mass/Vol] 15 mg/dL Normal 6 - 23 [facility] Comment on above: Order Comment: PATIE NT FASTING Performed By: #### C MP #### [address] [address] LIPID PANEL (CORONARY RISK 2 )on 02-14-2021 Cholesterol [Mass/Vol] 153 mg/dL Normal 0 - 199 [facility] Comment on above: Order Comment: [...] dosing. Performed By: #### L IPID #### [address] [address] Cholesterol in HDL [Mass/Vol] 59.8 mg/dL Normal [facility] Comment on above: Order Comment: PATIE NT FASTING Result Comment: . AGE VERY LOW LOW NORMAL HIGH 0-19 Y < 35 < 40 40-45 ---- 20-24 Y ---- < 40 >45 ---- >24 Y ---- < 40 40-60 >60 . Performed By: #### L IPID #### [address] [address] Cholesterol in LDL [Mass/Vol] 82 mg/dL Normal 0 - 99 [facility] Comment on above: Order Comment: PATIE NT FASTING Result Comment: . NEAR BORD AGE DESIRABLE OPTIMAL HIGH HIGH VERY HIGH 0-19 Y 0 - 109 --- 110-129 >/= 130 ---- 20-24 Y 0 - 119 --- 120-159 >/= 160 ---- >24 Y 0 - 99 100-129 130-159 160-189 >/=190 . Performed By: #### L IPID #### [address] [address] Cholesterol in VLDL [Mass/Vol] 12 mg/dL Normal 0 - 40 [facility] Comment on above: Order Comment: PATIE NT FASTING Performed By: #### L IPID #### [address] [address] Cholesterol.total/Cho lesterol in HDL [Mass ratio] 2.6 {ratio} Normal [facility] Comment on above: Order Comment: PATIE NT FASTING Result Comment: REF VALUES DESIRABLE < 3.4 HIGH RISK > 5.0 Performed By: #### L IPID #### [address] [address] Triglyceride [Mass/Vol] 58 mg/dL Normal 0 - 149 [facility] Comment on above: Order Comment: [...] dosing. Performed By: #### L IPID #### [address] [address] Laboratory - Chemistry and C hemistry - challengeon 02-14-2021 Albumin BCP dye [Mass/Vol] 3.8 g/dL 3.4 - 5.0 [facility] Work Phone: ALP [Catalytic activity/Vol] 71 U/L 33 - 110 [facility] Work Phone: ALT With P-5'-P [Catalytic activity/Vol] 16 U/L 7 - 45 [facility] Work Phone: Comment on above: Patients treated wit h Sulfasalazine may generate falsely decreased results for ALT. Anion gap [Moles/Vol] 9 mmol/L below low threshold 10 - 20 -[facility] Work Phone: AST With P-5'-P [Catalytic activity/Vol] 16 U/L 9 - 39 -[facility] Work Phone: Bilirubin [Mass/Vol] 0.5 mg/dL 0.0 - 1.2 [facility] Work Phone: Calcium [Mass/Vol] 9.4 mg/dL 8.6 - 10.3 [facility] Work Phone: Chloride [Moles/Vol] 107 mmol/L 98 - 107 [facility] Work Phone: CO2 [Moles/Vol] 28 mmol/L 21 - 32 [facility] Work Phone: Creatinine [Mass/Vol] 0.79 mg/dL See Below - [facility] Work Phone: Comment on above: Reference Range: 0.5 0 - 1.05 Glucose [Mass/Vol] 73 mg/dL below low threshold 74 - 99 [facility] Work Phone: Potassium [Moles/Vol] 4.2 mmol/L 3.5 - 5.3 [facility] Work Phone: Protein [Mass/Vol] 6.5 g/dL 6.4 - 8.2 [facility] Work Phone: Sodium [Moles/Vol] 140 mmol/L 136 - 145 [facility] Work Phone: Urea nitrogen [Mass/Vol] 15 mg/dL 6 - 23 [facility] Work Phone: Laboratory - Hematology and Cell countson 02-14-2021 Erythrocyte distribution width (RBC) [Ratio] 12.3 % See Below [facility] Work Phone: Comment on above: Reference Range: 11. 5 - 14.5 Hematocrit (Bld) [Volume fraction] 44.8 % See Below [facility] Work Phone: Comment on above: Reference Range: 36. 0 - 46.0 Hemoglobin (Bld) [Mass/Vol] 14.0 g/dL See Below [facility] Work Phone: Comment on above: Reference Range: 12. 0 - 16.0 MCHC (RBC) [Mass/Vol] 31.3 g/dL below low threshold See Below [facility] Work Phone: Comment on above: Reference Range: 32. 0 - 36.0 MCV (RBC) [Entitic vol] 95 fL 80 - 100 [facility] Work Phone: Platelets (Bld) [#/Vol] 267 10*3/uL 150 - 450 [facility] Work Phone: RBC (Bld) [#/Vol] 4.74 {x10E12/L} See Below [facility] Work Phone: Comment on above: Reference Range: 4.0 0 - 5.20 WBC (Bld) [#/Vol] 6.4 10*3/uL 4.4 - 11.3 [facility] Work Phone: Lipid Panelon 02-14-2021 Cholesterol [Mass/Vol] 153 mg/dL 0 - 199 [facility] Work Phone: Comment on above: . AGE [...] dosing. Cholesterol in HDL [Mass/Vol] 59.8 mg/dL [facility] Work Phone: Comment on above: . AGE VERY LOW LOW N ORMAL HIGH 0-19 Y < 35 < 40 40-45 ---- 20- 24 Y ---- < 40 >45 ---- >24 Y ---- < 40 40-60 >60. Cholesterol in LDL [Mass/Vol] 82 mg/dL 0 - 99 [facility] Work Phone: Comment on above: . NEAR BORD AGE RANDOLPH RABLE OPTIMAL HIGH HIGH VERY HIGH 0-19 Y 0 - 109 --- 110-129 >/= 130 ---- 20-24 Y 0 - 119 --- 120-159 >/= 160 ---- >24 Y 0 - 99 100-129 130-159 160-189 >/=190. Cholesterol.total/Cho lesterol in HDL [Mass ratio] 2.6 {ratio} [facility] Work Phone: Comment on above: REF VALUESDESIRABLE < 3.4HIGH RISK > 5.0 Triglyceride [Mass/Vol] 58 mg/dL 0 - 149 [facility] Work Phone: Comment on above: . AGE [...] Lipid Panel 12 mg/dL 0 - 40 [facility] Work Phone: No Panel Informationon 02-14 >60 >60 -[facility] Work Phone: Comment on above: [...] left eye Complete Blood Count; Status:Complete; Done: [id number] 07:39AM Performed:[facility]; Due:[id number];Ordered; For:Health Maintenance, GERD (gastroesophageal reflux disease), Vision loss, left eye; Ordered By:Frida Lieberman; Comprehensive Metabolic Panel; Status:Complete; Done: [id number] 07:39AM Performed:[facility]; Due:[id number];Ordered; For:Health Maintenance, GERD (gastroesophageal reflux disease), Vision loss, left eye; Ordered By:Frida Lieberman; Lipid Panel; Status:Complete; Done: [id number] 07:39AM Performed:[facility]; Due:[id number];Ordered; For:Health Maintenance, GERD (gastroesophageal reflux disease), Vision loss, left eye; Ordered By:Frida Lieberman; Ocular migraine, Vision loss, left eye Start: NIFEdipine ER 30 MG Oral Tablet Extended Release 24 Hour; take 1 tablet by mouth once daily Rx By: Frida Lieberman; Dispense: 30 Days ; #:30 Tablet; Refill: 1;For: Ocular migraine, Vision loss, left eye; TONE = N; Verified Transmission to [id number] [id number]; Last Updated By: Cathy Kong; 02/12/2021 6:03:15 PM Vision loss, left eye CT Head without Contrast; Status:Complete; Done: [id number] 08:41AM Performed:;Ordered; For:Vision loss, left eye; Ordered [...] past surgical history Social History Problems Non-smoker (V43.89) (Z78.9) Allergies Medication No Known Drug Allergies Recorded By: Roula Vidales; 12/09/2017 3:02:53 PM Current Meds Medication NameInstruction Advil Cold/Sinus 30-200 MG Oral TabletTAKE 1 TABLET Every 8 hours Fluti (more content not included)... Normal [facility] - Chemistry and C hemistry - challengeon 01-24-2021 TSH Qn 2.43 m[IU]/L See Below [facility] Work Phone: Comment on above: Reference Range: 0.4 4 - 3.98 TSH testing is performed using different testing methodology at [facility] than at other [facility]. Direct result comparisons should only be made within the same method. T4 - Free Thyroxine, Serumon 01-24-2021 Free T4 [Mass/Vol] 0.86 ng/dL See Below [facility] Work Phone: Comment on above: Reference Range: 0.6 1 - 1.12 Thyroxine Free testing is performed using different testing methodology at [facility] than at other [facility]. Direct result comparisons should only be [...] THYROXINE,FREE 0.86 ng/dL Normal 0.61 - 1.12 [facility] Comment on above: Result Comment: Thyr oxine Free testing is performed using different testing methodology at [facility] than at [facility]. Direct result comparisons should only be [...] draw. Performed By: #### T 4FRE #### [address] [address] TRIIODOTHYRONINEon TRIIODOTHYRONINE 79 ng/dL Normal 60 - 200 [facility] Comment on above: Performed By: #### T 3 #### [facility] [address] [place] [address] TSH WITH REFLEX TO FREE T4 I F ABNORMALon 01-24-2021 TSH Qn 2.43 m[IU]/L Normal 0.44 - 3.98 [facility] Comment on above: Result Comment: TSH testing is performed using different testing methodology at [facility] than at [facility]. Direct result comparisons should only be made within the same method. Performed By: #### T HYDS #### [address] [address] Triiodothyronine, Level (T3) on 01-24-2021 T3 [Mass/Vol] 79 ng/dL 60 - 200 [facility] Work Phone: Tobacco Screening.on 021 Fall risk assessment a) No falls within the last year [facility] Work Phone: Tobacco Screening. b) No [facility] Work Phone: FREE T4on 07-24-2020 Free T4 [Mass/Vol] 1.3 ng/dL Normal 0.9-1.7 [facility] Comment on above: Result Comment: Perf ormed at [address] [address] Performed By: #### T 4F #### [facility] [address] [address] Liquid PAPon 07-24-2020 Liquid PAP Patient Name: RAMONA WAHL [facility]. Rec. #: [id number] FINAL CYTOLOGIC DIAGNOSIS SPECIMEN ADEQUACY: Satisfactory for evaluation. Endocervical transformation zone component present. GENERAL CATEGORIZATION: Negative for intraepithelial lesion or malignancy. See interpretation-result. INTERPRETATION/RESULT: Negative for intraepithelial lesion or malignancy. Cellular changes associated with atrophy are present. The above diagnosis was rendered at [employer] [address] [place] [address], CLIA number [id number]. This information is included on the report [...] test, please call the pathology laboratory. Normal [facility] Comment on above: Performed By: #### C BCD #### [address] [address] T3 TOTALon 07-24-2020 T3 TOTAL 76 NG/DL Low 94-170 [facility] Comment on above: Result Comment: Perf ormed at [address] [address] Performed By: #### C BCD #### [facility] [address] [address] TSHon 07-24-2020 TSH Qn 1.97 MIU/L Normal 0.27-4.20 [facility] Comment on above: Result Comment: Perf ormed at [address] [address] Performed By: #### G L1P #### [facility] [address] [address] URINE CULTUREon 06-12-2020 Bacteria identified Cx Nom (U) Specimen source XXX: CLEAN VOIDED MIDSTREAM Performed at [address] [address] Service Cmnt XXX-Imp: NONE Performed at [address] [address] CC Number Ur: 10,000-50,000 CFU/ml Bacteria identified: NORMAL UROGENITAL [place] [address] : FINAL 06/12/2020 [facility] Comment on above: Performed By: #### C BCD #### [place] [address] CBC with Diffon 06-11-2020 AB IMMATURE NEUT 0.13 K/UL High 0.0-0.1 [facility] Comment on above: Performed By: #### C BCD #### [facility] [address] [address] ABS BASO 0.05 K/UL Normal 0.00-0.22 [facility] Comment on above: Performed By: #### C BCD #### [facility] [address] [address] ABS EOS 0.13 K/UL Normal 0-0.45 [facility] Comment on above: Performed By: #### C BCD #### [facility] [address] [address] ABS NEUTROPHILS 8.66 K/UL High 1.8-7.7 [facility] Comment on above: Performed By: #### C BCD #### [facility] [address] [address] ABS.NEUT.CALCULATED 8.66 K/UL [facility] Comment on above: Result Comment: Perf ormed at [address] [address] Performed By: #### C BCD #### [facility] [address] [address] Basophils/100 WBC (Bld) 0.40 % Normal 0-1 [facility] Comment on above: Performed By: #### C BCD #### [facility] [address] [place] [address] DIFF TYPE AUTO DIFF Normal [facility] Comment on above: Performed By: #### C BCD #### [place] [address] [place] [address] Eosinophils/100 WBC (Bld) 1.10 % Normal 0-3 [facility] Comment on above: Performed By: #### C BCD #### [place] [address] [place] [address] Erythrocyte distribution width (RBC) [Ratio] 13.5 % Normal 11.7-15.0 [facility] Comment on above: Performed By: #### C BCD #### [place] [address] [place] [address] Hematocrit (Bld) [Volume fraction] 39.2 % Normal 36-44 [facility] Comment on above: Performed By: #### C BCD #### [place] [address] [place] [address] Hemoglobin (Bld) [Mass/Vol] 13.0 g/dL Normal 12.0-15.0 [facility] Comment on above: Performed By: #### C BCD #### [place] [address] [place] [address] Lymphocytes (Bld) [#/Vol] 1.96 10*3/uL Normal 1.2-3.2 [facility] Comment on above: Performed By: #### C BCD #### [place] [address] [place] [address] Lymphocytes/100 WBC (Bld) 16.40 % Low 20-40 [facility] Comment on above: Performed By: #### C BCD #### [place] [address] [place] [address] MCH (RBC) [Entitic mass] 32.5 pg Normal 26-34 [facility] Comment on above: Performed By: #### C BCD #### [place] [address] [place] [address] MCHC (RBC) [Mass/Vol] 33.2 % Normal 31-37 [facility] Comment on above: Performed By: #### C BCD #### [facility] [place] [address] [place] [address] MCV (RBC) [Entitic vol] 98.0 fL Normal 80-100 [facility] Comment on above: Performed By: #### C BCD #### [facility] [place] [address] [place] [address] MEAN PLT VOL 10.3 CU Normal 7.0-12.6 [facility] Comment on above: Performed By: #### C BCD #### [facility] [place] [address] [place] [address] Monocytes (Bld) [#/Vol] 1.05 10*3/uL High 0-0.8 [facility] Comment on above: Performed By: #### C BCD #### [place] [address] [place] [address] Monocytes/100 WBC (Bld) 8.80 % High 0-8 [facility] Comment on above: Performed By: #### C BCD #### [place] [address] [address] [facility] [place] [address] Neutrophils/100 WBC (Bld) 72.20 % High 50-70 [facility] Comment on above: Performed By: #### C BCD #### [place] [address] [place] [address] Neutrophils/100 WBC (Bld) 1.10 % High 0.0-1.0 [facility] Comment on above: Performed By: #### C BCD #### [facility] [place] [address] [place] [address] NRBC'S 0 /100 WBC Normal 0 [facility] Comment on above: Performed By: #### C BCD #### [facility] [place] [address] [place] [address] Platelets (Bld) [#/Vol] 239 10*3/uL Normal 150-450 [facility] Comment on above: Performed By: #### C BCD #### [facility] [place] [address] [address] [place] [address] RBC (Bld) [#/Vol] 4.00 M/UL Normal 4.0-4.9 [facility] Comment on above: Performed By: #### C BCD #### [place] [address] [place] [address] RDW-SD 48.4 FL Normal 37.0-54.0 [facility] Comment on above: Performed By: #### C BCD #### [address] [address] WBC (Bld) [#/Vol] 12.0 10*3/uL High 4.5-11.0 [facility] Comment on above: Performed By: #### C BCD #### [address] [address] Hematologyon 06-11-2020 Basophils (Bld) [#/Vol] Abs Baso 0.05 K/UL (0.00-0.22 K/UL) 0.00 - 0.22 K/UL [facility] Work Phone: [phone] Basophils/100 WBC (Bld) Basophil 0.40 % (0-1 %) 0 - 1 % S Work Phone: [phone] Eosinophils (Bld) [#/Vol] Abs Eos 0.13 K/UL (0-0.45 K/UL) 0 - 0.45 K/UL S Work Phone: [phone] Eosinophils/100 WBC (Bld) Eosinophil 1.10 % (0-3 %) 0 - 3 % S Work Phone: [phone] Hematocrit (Bld) [Volume fraction] HCT 39.2 % (36-44 %) 36 - 44 % S Work Phone: [phone] Hemoglobin (Bld) [Mass/Vol] HGB 13.0 GM/DL (12.0-15.0 GM/DL) 12.0 - 15.0 GM/DL S Work Phone: [phone] Lymphocytes (Bld) [#/Vol] Abs Lymph 1.96 K/UL [...] S Work Phone: Monocytes (Bld) [#/Vol] Abs [place] 1.05 K/UL H (0-0.8 K/UL) High 0 - 0.8 K/UL [facility] Work Phone: Monocytes/100 WBC (Bld) Monocyte 8.80 % H (0-8 %) High 0 - 8 % [facility] Work Phone: Neutrophils (Bld) [#/Vol] Abs.Neut.Calculated 8.66 K/UL (Reference Range: not available) Performed at [address] [address] [facility] Work Phone: Neutrophils (Bld) [#/Vol] Abs Neut 8.66 K/UL H (1.8-7.7 K/UL) High 1.8 - 7.7 K/UL [facility] Work Phone: Platelets (Bld) [#/Vol] PLT 239 K/UL (150-450 K/UL) 150 - 450 K/UL [facility] Work Phone: RBC (Bld) [#/Vol] RBC 4.00 M/UL (4.0-4 .9 M/UL) 4.0 - 4.9 M/UL [facility] Work Phone: WBC (Bld) [#/Vol] WBC 12.0 K/UL H (4.5-11.0 K/UL) High 4.5 - 11.0 K/UL [facility] Work Phone: Imm/Pathon 06-11-2020 Bacteria identified Cx Nom (Unsp spec) Culture Urine Specimen Number: [id number] Sample Collection Date/Time: 06/11/2020 3:56 AM Specimen Source: CVGA Specimen Description: CLEAN VOIDED MIDSTREAM Performed at [address] [address] Special Requests: NONE Performed at [address] [address] [place] Count: 10,000-50,000 CFU/ml Culture Urine: NORMAL UROGENITAL MATEO Performed at [address] [address] Report Status: FINAL 06/12/2020 [facility] Work Phone: Otheron 06-11-2020 Differential cell count method Nom (Bld) Diff Type AUTO DIFF (Reference Range: not available) [employer] Work Phone: Erythrocyte distribution width (RBC) [Entitic vol] RDW SD 48.4 FL (37.0-54.0 FL) 37.0 - 54.0 FL [employer] Work Phone: Erythrocyte distribution width (RBC) [Ratio] RDW CV 13.5 % (11.7-15.0 %) 11.7 - 15.0 % [facility] [employer] Work Phone: Immature granulocytes (Bld) [#/Vol] Abs Imm Neut 0.13 K/UL H (0.0-0.1 K/UL) High 0.0 - 0.1 K/UL [facility] Work Phone: MCHC (RBC) [Mass/Vol] MCHC 33.2 % (31-37 %) 31 - 37 % [employer] Work Phone: Neutrophils.immature/ 100 WBC (Bld) Immature Neut % 1.10 % H (0.0-1.0 %) High 0.0 - 1.0 % [facility] Work Phone: Nucleated RBC/100 WBC (Bld) [Ratio] NRBCs 0 /100 WBC (0 /100 WBC) [facility] Work Phone: Platelet mean volume (Bld) [Entitic vol] MPV 10.3 CU (7.0-12.6 CU) 7.0 - 12.6 CU [employer] Work Phone: Segmented neutrophils/100 WBC (Bld) Granulocyte 72.20 % H (50-70 %) High 50 - 70 % [facility] Work Phone: [phone] FLUAV RNA TRISH+probe Ql (Nph) FLU A by PCR NEGATIVE (Reference Range: not available) S Work Phone: [phone] FLUBV RNA TRISH+probe Ql (Nph) FLU B by PCR NEGATIVE (Reference Range: not available) S Work Phone: [phone] SARS-CoV-2 by PCR NEGATIVE (NEG ) [facility] Work Phone: [phone] SARS-CoV-2,INFLUENZA A/B NUC LEIC ACID TESTon 06-11-2020 EUA DISCLAIMER [facility] Comment on above: Result Comment: [...] is terminated or revoked sooner. Performed at [place] [address] Performed By: #### F LUCOV #### [facility] [place] [address] FLU A by PCR Negative [facility] Comment on above: Performed By: #### F LUCOV #### [facility] [place] [address] FLU B by PCR Negative [facility] Comment on above: Performed By: #### F LUCOV #### [facility] [place] [address] SARS-CoV-2 by PCR Negative Normal [facility] Comment on above: Performed By: #### F LUCOV #### [facility] [address] [place] [address] CBC with Diffon 03-15-2020 AB IMMATURE NEUT 0.08 K/UL Normal 0.0-0.1 [facility] Comment on above: Performed By: #### C BCD #### [facility] [place] [address] [place] [address] ABS BASO 0.05 K/UL Normal 0.00-0.22 [facility] Comment on above: Performed By: #### C BCD #### [facility] [place] [address] [place] [address] ABS EOS 0.19 K/UL Normal 0-0.45 [facility] Comment on above: Performed By: #### C BCD #### [place] [address] [place] [address] ABS NEUTROPHILS 7.58 K/UL Normal 1.8-7.7 [facility] Comment on above: Performed By: #### C BCD #### [place] [address] [place] [address] ABS.NEUT.CALCULATED 7.58 K/UL Normal [facility] Comment on above: Result Comment: Perf ormed at [address] [address] Performed By: #### C BCD #### [address] [place] [address] Basophils/100 WBC (Bld) 0.50 % Normal 0-1 [facility] Comment on above: Performed By: #### C BCD #### [place] [address] [place] [address] DIFF TYPE AUTO DIFF Normal [facility] Comment on above: Performed By: #### C BCD #### [place] [address] [place] [address] Eosinophils/100 WBC (Bld) 1.90 % Normal 0-3 [facility] Comment on above: Performed By: #### C BCD #### [facility] [address] [address] Erythrocyte distribution width (RBC) [Ratio] 13.2 % Normal 11.7-15.0 [facility] Comment on above: Performed By: #### C BCD #### [facility] [address] [place] [address] Hematocrit (Bld) [Volume fraction] 39.7 % Normal 36-44 [facility] Comment on above: Performed By: #### C BCD #### [facility] [place] [address] [address] [place] [address] Hemoglobin (Bld) [Mass/Vol] 12.5 g/dL Normal 12.0-15.0 [facility] Comment on above: Performed By: #### C BCD #### [facility] [place] [address] [place] [address] Lymphocytes (Bld) [#/Vol] 1.44 10*3/uL Normal 1.2-3.2 [facility] Comment on above: Performed By: #### C BCD #### [place] [address] [place] [address] Lymphocytes/100 WBC (Bld) 14.30 % Low 20-40 [facility] Comment on above: Performed By: #### C BCD #### [place] [address] [place] [address] MCH (RBC) [Entitic mass] 31.7 pg Normal 26-34 [facility] Comment on above: Performed By: #### C BCD #### [place] [address] [place] [address] MCHC (RBC) [Mass/Vol] 31.5 % Normal 31-37 [facility] Comment on above: Performed By: #### C BCD #### [facility] [place] [address] [place] [address] MCV (RBC) [Entitic vol] 100.8 fL High 80-100 [facility] Comment on above: Performed By: #### C BCD #### [facility] [place] [address] [address] [facility] [place] [address] MEAN PLT VOL 9.7 CU Normal 7.0-12.6 [facility] Comment on above: Performed By: #### C BCD #### [facility] [place] [address] [place] [address] Monocytes (Bld) [#/Vol] 0.76 10*3/uL Normal 0-0.8 [facility] Comment on above: Performed By: #### C BCD #### [facility] [address] [place] [address] Monocytes/100 WBC (Bld) 7.50 % Normal 0-8 [facility] Comment on above: Performed By: #### C BCD #### [facility] [address] [place] [address] Neutrophils/100 WBC (Bld) 75.00 % High 50-70 [facility] Comment on above: Performed By: #### C BCD #### [facility] [address] [place] [address] Neutrophils/100 WBC (Bld) 0.80 % Normal 0.0-1.0 [facility] Comment on above: Performed By: #### C BCD #### [facility] [address] [address] [place] [place] [address] NRBC'S 0 /100 WBC Normal 0 [facility] Comment on above: Performed By: #### C BCD #### [facility] [address] [facility] [place] [address] Platelets (Bld) [#/Vol] 271 10*3/uL Normal 150-450 [facility] Comment on above: Performed By: #### C BCD #### [place] [address] [place] [address] RBC (Bld) [#/Vol] 3.94 M/UL Low 4.0-4.9 [facility] Comment on above: Performed By: #### C BCD #### [facility] [address] [place] [address] RDW-SD 49.4 FL Normal 37.0-54.0 [facility] Comment on above: Performed By: #### C BCD #### [facility] [address] [place] [address] WBC (Bld) [#/Vol] 10.1 10*3/uL Normal 4.5-11.0 [facility] Comment on above: Performed By: #### C BCD #### [facility] [address] [address] GLUCOSE 1 HR. P.D.on 020 Glucose [Mass/Vol] 98 mg/dL Normal 70-139 [facility] Comment on above: Result Comment: Perf ormed at [address] [address] Performed By: #### G L1P #### [facility] [place] [id number] URINE CULTUREon 02-26-2020 Bacteria identified Cx Nom (U) Specimen source XXX: CLEAN VOIDED MIDSTREAM Service Cmnt XXX-Imp: NONE Bacteria identified: COAGULASE NEGATIVE STAPHYLOCOCCI [place] [address] : FINAL 02/26/2020 ANTIBIOTIC SUMMER/INTERP ORGANISM: 1 COAGULASE NEGATIVE STAPHYLOCOCCI SUMMER SUMMER CEFAZOLIN <=4 SUSCEPTIBLE OXACILLIN <=0.25 SUSCEPTIBLE TETRACYCLINE <=2 SUSCEPTIBLE TRIMETHOPRIM SULFAMETHOXAZOLE <=0.5/9.5 SUSCEPTIBLE LEVOFLOXACIN <=0.5 SUSCEPTIBLE [facility] Comment on above: Performed By: #### C BCD #### [facility] [address] [address] CBCon 02-22-2020 Erythrocyte distribution width (RBC) [Ratio] 13.9 % Normal 11.5 - 14.5 [facility] Comment on above: Performed By: #### C BC #### [address] [address] Hematocrit (Bld) [Volume fraction] 36.0 % Normal 36.0 - 46.0 [facility] Comment on above: Performed By: #### C BC #### [address] [address] Hemoglobin (Bld) [Mass/Vol] 11.7 g/dL Low 12.0 - 16.0 [facility] Comment on above: Performed By: #### C BC #### [address] [address] MCHC (RBC) [Mass/Vol] 32.5 g/dL Normal 32.0 - 36.0 [facility] Comment on above: Performed By: #### C BC #### [address] [address] MCV (RBC) [Entitic vol] 99 fL Normal 80 - 100 [place] Comment on above: Performed By: #### C BC #### [place] [address] Platelets (Bld) [#/Vol] 240 10*3/uL Normal 150 - 450 [facility] Comment on above: Performed By: #### C BC #### [place] [address] RBC (Bld) [#/Vol] 3.63 x10E12/L Low 4.00 - 5.20 Ivan inson[facility] Comment on above: Performed By: #### C BC #### [place] [address] WBC (Bld) [#/Vol] 9.4 10*3/uL Normal 4.4 - 11.3 [place] [facility] Comment on above: Performed By: #### C BC #### [place] [address] COMPREHENSIVE PANELon 2019 Albumin [Mass/Vol] 3.2 g/dL Low 3.4 - 5.0 [place] [facility] Comment on above: Performed By: #### C MP #### [place] [address] ALP [Catalytic activity/Vol] 61 U/L Normal 33 - 110 [facility] Comment on above: Performed By: #### C MP #### [place] [address] ALT [Catalytic activity/Vol] 24 U/L Normal 7 - 45 [place] Comment on above: Result Comment: Feli ents treated with Sulfasalazine may generate falsely decreased results for ALT. Performed By: #### C MP #### [place] [address] Anion gap [Moles/Vol] 8 mmol/L Low 10 - 20 [facility] Comment on above: Performed By: #### C MP #### [place] [id number] AST [Catalytic activity/Vol] 19 U/L Normal 9 - 39 [place] Comment on above: Performed By: #### C MP #### [place] [id number] Bilirubin [Mass/Vol] 0.3 mg/dL Normal 0.0 - 1.2 Raji n[facility] Comment on above: Performed By: #### C MP #### [place] [address] Calcium [Mass/Vol] 8.8 mg/dL Normal 8.6 - 10.3 [place] [facility] Comment on above: Performed By: #### C MP #### [place] [address] Chloride [Moles/Vol] 108 mmol/L High 98 - 107 Raji n[facility] Comment on above: Performed By: #### C MP #### [place] [address] Creatinine [Mass/Vol] 0.52 mg/dL Normal 0.50 - 1.05 Ro binson[facility] Comment on above: Performed By: #### C MP #### [place] [address] GFR- AM. >60 Normal >60 [place] Comment on above: Result Comment: CALC ULATIONS OF ESTIMATED GFR ARE PERFORMED USING THE MDRD STUDY EQUATION FOR THE IDMS-TRACEABLE CREATININE METHODS. CLIN CHEM 2007;53:766-72 Performed By: #### C MP #### [place] [id number] GFR-NON AM. >60 Normal >60 Sabino son[facility] Comment on above: Performed By: #### C MP #### [place] [id number] Glucose [Mass/Vol] 69 mg/dL Low 74 - 99 [place] [facility] Comment on above: Performed By: #### C MP #### [address] [address] HCO3 (Bld) [Moles/Vol] 27 mmol/L Normal 21 - 32 [place] Comment on above: Performed By: #### C MP #### [address] [address] Potassium [Moles/Vol] 3.9 mmol/L Normal 3.5 - 5.3 [facility] Comment on above: Performed By: #### C MP #### [address] [address] Protein [Mass/Vol] 5.5 g/dL Low 6.4 - 8.2 [place] [facility] Comment on above: Performed By: #### C MP #### [address] [address] Sodium [Moles/Vol] 139 mmol/L Normal 136 - 145 [place] [facility] Comment on above: Performed By: #### C MP #### [address] [address] Urea nitrogen [Mass/Vol] 12 mg/dL Normal 6 - 23 [place] Comment on above: Performed By: #### C MP #### [address] [address] LIPID PANEL (CORONARY RISK 2 )on 02-22-2020 Cholesterol [Mass/Vol] 243 mg/dL High 0 - 199 [place] Comment on above: Result Comment: [...] dosing. Performed By: #### L IPID #### [address] [address] Cholesterol in HDL [Mass/Vol] 68.8 mg/dL Normal [facility] Comment on above: Result Comment: . AGE VERY LOW LOW NORMAL HIGH 0-19 Y < 35 < 40 40-45 ---- 20-24 Y ---- < 40 >45 ---- >24 Y ---- < 40 40-60 >60 . Performed By: #### L IPID #### [address] [address] Cholesterol in LDL [Mass/Vol] 145 mg/dL High 0 - 99 [facility] Comment on above: Result Comment: . NEAR BORD AGE DESIRABLE OPTIMAL HIGH HIGH VERY HIGH 0-19 Y 0 - 109 --- 110-129 >/= 130 ---- 20-24 Y 0 - 119 --- 120-159 >/= 160 ---- >24 Y 0 - 99 100-129 130-159 160-189 >/=190 . Performed By: #### L IPID #### [address] [address] Cholesterol in VLDL [Mass/Vol] 29 mg/dL Normal 0 - 40 [facility] Comment on above: Performed By: #### L IPID #### [address] [address] Cholesterol.total/Cho lesterol in HDL [Mass ratio] 3.5 {ratio} Normal [facility] Comment on above: Result Comment: REF VALUES DESIRABLE < 3.4 HIGH RISK > 5.0 Performed By: #### L IPID #### [address] [address] Triglyceride [Mass/Vol] 146 mg/dL Normal 0 - 149 [facility] Comment on above: Result Comment: . [...] dosing. Performed By: #### L IPID #### [facility] [address] [place] [address] RPRon 01-03-2020 Reagin Ab RPR Ql (S) Normal [facility] Comment on above: Result Comment: NONR [place]ACTIVE [place] [address] Performed By: #### C BCD #### [place] [address] HIV-1 P24 Ag+HIV-1-2 Abon HIV 1 2 ANTIBODY Test Not Indicated [facility] Comment on above: Performed By: #### C BCD #### [place] [address] HIV 12 Ag/Ab [facility] Comment on above: Result Comment: Non Reactive Reference range: NONREACTIVE Performed By: #### C BCD #### [place] [address] HIV Interpretation [facility] Comment on above: Result Comment: Nega tive No evidence of HIV-1 or HIV-2 infection. Should recent infection be suspected, repeat testing may be considered 2-3 weeks after this draw. HIV Information: Cass Rev. Code 3701.243(E): This information has been [...] test results or diagnoses. Performed at the [facility] unless otherwise noted. Performed By: #### C BCD #### [address] [address] ABO RH ANTIBODY SCREENon ABO and Rh group Nom (Bld) ABO/RH(D) - O POSITIVE ANTIBODY SCREEN - NEGATIVE PT TRANSFUSION HISTORY - BLOOD BANK RECORD SEARCH COMPLETED NO PREVIOUS RECORD Performed at [address] [address] [facility] Comment on above: Performed By: #### C BCD #### [address] [address] CBC WITHOUT DIFFon 0 Erythrocyte distribution width (RBC) [Ratio] 13.2 % Normal 11.7-15.0 [facility] Comment on above: Performed By: #### G L1P #### [address] [address] Hematocrit (Bld) [Volume fraction] 38.2 % Normal 36-44 [facility] Comment on above: Performed By: #### G L1P #### [address] [address] Hemoglobin (Bld) [Mass/Vol] 12.4 g/dL Normal 12.0-15.0 [facility] Comment on above: Performed By: #### G L1P #### [address] [address] MCH (RBC) [Entitic mass] 30.8 pg Normal 26-34 [facility] Comment on above: Performed By: #### G L1P #### [address] [address] MCHC (RBC) [Mass/Vol] 32.5 % Normal 31-37 [facility] Comment on above: Performed By: #### G L1P #### [address] [address] MCV (RBC) [Entitic vol] 95.0 fL Normal 80-100 [facility] Comment on above: Performed By: #### G L1P #### [address] [address] MEAN PLT VOL 10.4 CU Normal 7.0-12.6 [facility] Comment on above: Performed By: #### G L1P #### [address] [address] NRBC'S 0 /100 WBC Normal 0 [facility] Comment on above: Result Comment: Perf ormed at [address] [address] Performed By: #### G L1P #### [address] [address] Platelets (Bld) [#/Vol] 301 10*3/uL Normal 150-450 [facility] Comment on above: Performed By: #### G L1P #### [address] [address] RBC (Bld) [#/Vol] 4.02 M/UL Normal 4.0-4.9 [facility] Comment on above: Performed By: #### G L1P #### [address] [address] RDW-SD 46.5 FL Normal 37.0-54.0 [facility] Comment on above: Performed By: #### G L1P #### [address] [address] WBC (Bld) [#/Vol] 9.0 10*3/uL Normal 4.5-11.0 [facility] Comment on above: Performed By: #### G L1P #### [address] [address] HEP B SURF AGon 12-31-2019 HEP B SURF AG Normal [facility] Comment on above: Result Comment: NEGA TIVE Performed at [address] [address] Performed By: #### H BGP #### [address] [address] GARRY PANORAMAon 12-31-2019 GARRY PANORAMA Specimen sent,Result s will be sent to Physician [facility] Comment on above: Performed By: #### C BCD #### Main Laboratory [address] [address] RUBELLAon 12-31-2019 RUBELLA 74.02 IU/ml Normal [facility] Comment on above: Result Comment: Julisa benson Range: Negative: <10 IU/ml Positive: => 10 IU/ml NOTE: A positive result is consistant with immunity to Rubella Performed at [place] [address] Performed By: #### C BCD #### [address] [address] TSHon 12-31-2019 TSH Qn 2.91 MIU/L Normal 0.27-4.20 [facility] Comment on above: Result Comment: Perf ormed at [place] [address] Performed By: #### T SHR #### [address] [address] PROGRESSon 12-01-2019 PROGRESS HNO ID: [id number] Author: Jada Brand) [place] Service: Obstetrics Author [...] method. 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: Negative for abnormal vaginal bleeding, abnormal vaginal [...] during 12/01/2019 Overview Note: - Transfer from [facility] - S/p 2L IVF, Zofran, Reglan [...] 2019 TIME: 3:46 AM PAGER/CONTACT #: Normal [facility] CBC with Diffon 11-08-2019 AB IMMATURE NEUT 0.04 K/UL Normal 0.0-0.1 [facility] Comment on above: Performed By: #### G L1P #### [facility] [place] [address] [place] [address] ABS BASO 0.04 K/UL Normal 0.00-0.22 [facility] Comment on above: Performed By: #### G L1P #### [facility] [place] [address] [place] [address] ABS EOS 0.13 K/UL Normal 0-0.45 [facility] Comment on above: Performed By: #### G L1P #### [facility] [place] [address] [place] [address] ABS NEUTROPHILS 9.55 K/UL High 1.8-7.7 [facility] Comment on above: Performed By: #### G L1P #### [place] [address] [place] [address] ABS.NEUT.CALCULATED 9.55 K/UL Normal [facility] Comment on above: Result Comment: Perf ormed at [place] [address] [address] [place] [address] Performed By: #### G L1P #### [place] [address] [place] [address] Basophils/100 WBC (Bld) 0.30 % Normal 0-1 [facility] Comment on above: Performed By: #### G L1P #### [place] [address] [place] [address] DIFF TYPE AUTO DIFF Normal [facility] Comment on above: Performed By: #### G L1P #### [place] [address] [place] [address] Eosinophils/100 WBC (Bld) 1.10 % Normal 0-3 [facility] Comment on above: Performed By: #### G L1P #### [place] [address] [place] [address] Erythrocyte distribution width (RBC) [Ratio] 12.2 % Normal 11.7-15.0 [facility] Comment on above: Performed By: #### G L1P #### [place] [address] [place] [address] Hematocrit (Bld) [Volume fraction] 44.9 % High 36-44 [facility] Comment on above: Performed By: #### G L1P #### [place] [address] [place] [address] Hemoglobin (Bld) [Mass/Vol] 14.9 g/dL Normal 12.0-15.0 [facility] Comment on above: Performed By: #### G L1P #### [place] [address] [place] [address] Lymphocytes (Bld) [#/Vol] 1.69 10*3/uL Normal 1.2-3.2 [facility] Comment on above: Performed By: #### G L1P #### [place] [address] [place] [address] Lymphocytes/100 WBC (Bld) 13.80 % Low 20-40 [facility] Comment on above: Performed By: #### G L1P #### [facility] [place] [address] [place] [address] MCH (RBC) [Entitic mass] 30.2 pg Normal 26-34 [facility] Comment on above: Performed By: #### G L1P #### [facility] [place] [address] [place] [address] MCHC (RBC) [Mass/Vol] 33.2 % Normal 31-37 [facility] Comment on above: Performed By: #### G L1P #### [facility] [place] [address] [place] [address] MCV (RBC) [Entitic vol] 91.1 fL Normal 80-100 [facility] Comment on above: Performed By: #### G L1P #### [place] [address] [place] [address] MEAN PLT VOL 10.2 CU Normal 7.0-12.6 [facility] Comment on above: Performed By: #### G L1P #### [place] [address] [place] [address] Monocytes (Bld) [#/Vol] 0.78 10*3/uL Normal 0-0.8 [facility] Comment on above: Performed By: #### G L1P #### [place] [address] [place] [address] Monocytes/100 WBC (Bld) 6.40 % Normal 0-8 [facility] Comment on above: Performed By: #### G L1P #### [place] [address] [place] [address] Neutrophils/100 WBC (Bld) 78.10 % High 50-70 [facility] Comment on above: Performed By: #### G L1P #### [place] [address] [place] [address] Neutrophils/100 WBC (Bld) 0.30 % Normal 0.0-1.0 [facility] Comment on above: Performed By: #### G L1P #### [place] [address] [place] [address] NRBC'S 0 /100 WBC Normal 0 [facility] Comment on above: Performed By: #### G L1P #### [place] [address] [place] [address] Platelets (Bld) [#/Vol] 239 10*3/uL Normal 150-450 [facility] Comment on above: Performed By: #### G L1P #### [place] [address] [place] [address] RBC (Bld) [#/Vol] 4.93 M/UL High 4.0-4.9 [facility] Comment on above: Performed By: #### G L1P #### [address] [address] [place] [address] RDW-SD 40.5 FL Normal 37.0-54.0 [facility] Comment on above: Performed By: #### G L1P #### [address] [address] [place] [address] WBC (Bld) [#/Vol] 12.2 10*3/uL High 4.5-11.0 [facility] Comment on above: Performed By: #### G L1P #### [address] [address] [place] [address] COMPREHENSIVE METABOLIC PANE Tye 11-08-2019 Albumin [Mass/Vol] 4.6 g/dL Normal 3.5-5.0 [facility] Comment on above: Performed By: #### C ADVERTISING LAYOUT WORKER #### [address] [address] [place] [address] Albumin/Globulin [Mass ratio] 1.5 {ratio} Normal 1.5-3.0 [facility] Comment on above: Performed By: #### C ADVERTISING LAYOUT WORKER #### [address] [address] [place] [address] ALP [Catalytic activity/Vol] 48 U/L Normal 35-125 [facility] Comment on above: Performed By: #### C ADVERTISING LAYOUT WORKER #### [address] [address] [place] [address] ALT [Catalytic activity/Vol] 14 U/L Normal 5-40 [facility] Comment on above: Performed By: #### C ADVERTISING LAYOUT WORKER #### [facility] [address] [place] [address] Anion gap [Moles/Vol] 15 mmol/L Normal 0-19 [facility] Comment on above: Performed By: #### C ADVERTISING LAYOUT WORKER #### [facility] [address] [place] [address] AST [Catalytic activity/Vol] 17 U/L Normal 5-40 [facility] Comment on above: Performed By: #### C ADVERTISING LAYOUT WORKER #### [facility] [address] [place] [address] Bilirubin [Mass/Vol] 0.6 mg/dL Normal 0.1-1.2 [facility] Comment on above: Performed By: #### C ADVERTISING LAYOUT WORKER #### [facility] [address] [place] [address] Calcium [Mass/Vol] 10.0 mg/dL Normal 8.5-10.4 [facility] Comment on above: Performed By: #### C ADVERTISING LAYOUT WORKER #### [facility] [address] [place] [address] Chloride [Moles/Vol] 103 mmol/L Normal 97-107 [facility] Comment on above: Performed By: #### C ADVERTISING LAYOUT WORKER #### [facility] [address] [place] [address] CO2 [Moles/Vol] 22 mmol/L Low 24-31 [facility] Comment on above: Performed By: #### C ADVERTISING LAYOUT WORKER #### [facility] [address] [place] [address] Creatinine [Mass/Vol] 0.7 mg/dL Normal 0.4-1.6 [facility] Comment on above: Performed By: #### C ADVERTISING LAYOUT WORKER #### [facility] [address] [place] [address] GFR/1.73 sq M.predicted MDRD (S/P/Bld) [Vol rate/Area] 107 mL/min/1.73 m2 Normal [facility] Comment on above: Result Comment: GFR ml/min/1.73m2 Stage ----- 90 1 60-89 2 30-59 3 15-29 4 <15 5 For -Americans, multiply EGFR result by 1.210 Calculation not validated for patients under 18 years of age. Performed at [address] [place] [address] Performed By: #### C ADVERTISING LAYOUT WORKER #### [address] [address] Globulin (S) [Mass/Vol] 3.1 g/dL Normal 1.9-3.7 [facility] Comment on above: Performed By: #### C ADVERTISING LAYOUT WORKER #### [address] [address] Glucose [Mass/Vol] 86 mg/dL Normal 65-99 [facility] Comment on above: Performed By: #### C ADVERTISING LAYOUT WORKER #### [address] [address] Potassium [Moles/Vol] 3.8 mmol/L Normal 3.4-5.1 [facility] Comment on above: Performed By: #### C ADVERTISING LAYOUT WORKER #### [address] [address] Protein [Mass/Vol] 7.7 g/dL Normal 5.9-7.9 [facility] Comment on above: Performed By: #### C ADVERTISING LAYOUT WORKER #### [address] [address] Sodium [Moles/Vol] 140 mmol/L Normal 133-145 [facility] Comment on above: Performed By: #### C ADVERTISING LAYOUT WORKER #### [address] [address] Urea nitrogen [Mass/Vol] 12 mg/dL Normal 8-25 [facility] Comment on above: Performed By: #### C ADVERTISING LAYOUT WORKER #### [address] [address] Urea nitrogen/Creatinine [Mass ratio] 17.1 RATIO Normal 8-21 [facility] Comment on above: Performed By: #### C ADVERTISING LAYOUT WORKER #### [address] [address] GC/CHLAMYDIA BY AMPon 2019 GC/CHLAMYDIA BY AMP [...] perform high complexity testing. Performed at [place] [facility], [address], [address], [address] Comment on above: Performed By: #### G PGCCT #### [place] [facility]. [address], [address] [place] [address] LIPASE PSon 11-08-2019 LIPASE PS 18 U/L Normal 16-63 [facility] Comment on above: Result Comment: Perf ormed at [place] [address] Performed By: #### L IPS #### [place] [address] URINE CULTUREon 11-07-2019 Bacteria identified Cx Nom (U) Specimen source XXX: CLEAN VOIDED MIDSTREAM Service Cmnt XXX-Imp: NONE CC Number Ur: >100,000 CFU/mL Bacteria identified: ESCHERICHIA COLI Performed at [place] [address] : FINAL 11/07/2019 ANTIBIOTIC SUMMER/INTERP ORGANISM: 1 ESCHERICHIA COLI SUMMER SUMMER AUGMENTIN <=8/4 SUSCEPTIBLE AMPICILLIN SULBACTAM <=8/4 SUSCEPTIBLE NITROFURANTOIN <=32 SUSCEPTIBLE TETRACYCLINE <=4 SUSCEPTIBLE CEFAZOLIN <=2 SUSCEPTIBLE GENTAMICIN <=4 SUSCEPTIBLE TRIMETHOPRIM SULFAMETHOXAZOLE <=2/38 SUSCEPTIBLE CIPROFLOXACIN <=1 SUSCEPTIBLE AMPICILLIN <=8 SUSCEPTIBLE LEVOFLOXACIN <=2 SUSCEPTIBLE PIPERACILLIN/TAZOBACTAM <=16 SUSCEPTIBLE MEROPENEM <=1 SUSCEPTIBLE [facility] Comment on above: Performed By: #### C BCD #### [place] [address] HCG QUANTITATIVEon 0 HCG QUANTITATIVE 55.9 MIU/ML Normal [facility] Comment on above: Result Comment: WEEK [...] 51,793 18 9,649 - 55,271 Performed at [address] [address] Performed By: #### G L1P #### Main Laboratory [address] [address] U Drug Screenon 04-22-2018 U Amph Scr Negative [facility] Comment on above: Performed By: #### 2 [id number] ####GAMALI[id number] [place] [address] U Yuli Scr Negative [facility] Comment on above: Performed By: #### 2 [id number] ####GAMALIEL [id number] [place] [address] U Benzodia Scr Negative [facility] Comment on above: Performed By: #### 2 [id number] ####GAMALIEL [id number] [place] [address] U Cannab Scr Negative [facility] Comment on above: Performed By: #### 2 [id number] ####GAMALIEL [id number] [place] [address] U Cocaine Scr Negative [facility] Comment on above: Performed By: #### 2 [id number] ####GAMALIEL [id number] [place] [address] U Opiate Scr Negative [facility] Comment on above: Performed By: #### 2 [id number] ####GAMALIEL [id number] [place] [address] U PCP Scr Negative [facility] Comment on above: Performed By: #### 2 [id number] ####GAMALIEL [id number] [place] [address] ED NOTEon 04-18-2018 ED NOTE HNO ID: [id number] Author: Ramona ChavezRn) GENARO Krishnan Service: Nursing Author Type: Registered Nurse Type: ED Notes Filed: 04/18/2018 11:03 AM Note Text: Pt unable to urinate at this time. Given water [facility] ED NOTE HNO ID: [id number] Author: Ramona ChavezRn) GENARO Krishnna Service: Nursing Author Type: Registered Nurse Type: ED Notes Filed: 04/18/2018 10:56 AM Note Text: Pt ambulated to the for urine specimen. [facility] ED PROV NOTEon 04-18-2018 Protein mass conc HNO ID: [id number]: Misa Bearden ([facility]) DolneyService: Emergency MedicineAuthor Type: Nurse PractitionerType: ED Provider NotesFiled: 04/18/2018 1:54 PMNote Text:ED Provider NotePatient Name: Ramona LozadaRN: [id number] DATE: 04/18/18HistoryPatient presents with:Flu Like SymptomsPatient presents to ED with complaint of productive cough. Initiallystarted about one week ago. Stated that she is having coughing fits.+fever, chills, sinus congestion, cough with sputum. Denies chest pain,palpitations, shortness of breath, abdominal pain. Has been told in thepast that she needs to be tested for asthma but has not every had thetesting.History provided by: PatientLanguage lang interpreter used: NoCoughCough characteristics: ProductiveSputum characteristics: GreenSeverity: ModerateOnset [...] of disposition: stableSIGNATURE: Misa Miramontes APRN.CNPAngela G ([facility]) [id number]/17/18 1354 Normal [facility] XR CHEST 2V FRONTAL/LATon Protein mass [...] WALLIS MD on Apr 18 2018 11:21AM [id number] [facility] Vital Signs Date Time Vital Sign Value Performing Clinician Facility 02-16-2025 08:22-0400 Body mass index (BMI) [Ratio] 26.66 kg/m2 Ana Hilario MD Work Phone: [facility] 02-16-2025 08:22-0400 Body weight 67.13 kg Ana Hilario MD Work Phone: [facility] 02-16-2025 08:22-0400 Diastolic blood pressure 64 mm[Hg] Ana Hilario MD Work Phone: [facility] 02-16-2025 08:22-0400 Systolic blood pressure 102 mm[Hg] Ana Hilario MD Work Phone: [facility] 02-09-2025 10:19-0400 Body mass index (BMI) [Ratio] 26.91 kg/m2 Yumiko Andersen BOARD MEMBER.CNM Work Phone: [facility] 02-09-2025 10:19-0400 Body weight 67.77 kg Yumiko Andersen BOARD MEMBER.CNM Work Phone: [facility] 02-09-2025 10:19-0400 Diastolic blood pressure 60 mm[Hg] Yumiko Andersen BOARD MEMBER.CNM Work Phone: [facility] 02-09-2025 10:19-0400 Systolic blood pressure 108 mm[Hg] Yumiko Andersen BOARD MEMBER.CNM Work Phone: [facility] 02-02-2025 09:21-0400 Body mass index (BMI) [Ratio] 26.58 kg/m2 Ethel Ruiz BOARD MEMBER.CNM Work Phone: [facility] 02-02-2025 09:21-0400 Body weight 66.95 kg Ethel Ruiz BOARD MEMBER.CNM Work Phone: [facility] 02-02-2025 09:21-0400 Diastolic blood pressure 72 mm[Hg] Ethel Ruiz BOARD MEMBER.CNM Work Phone: [facility] 02-02-2025 09:21-0400 Systolic blood pressure 116 mm[Hg] Ethel Ruiz BOARD MEMBER.CNM Work Phone: [facility] 01-19-2025 10:18-0400 Body mass index (BMI) [Ratio] 25.61 kg/m2 Ana Hilario MD Work Phone: [facility] 01-19-2025 10:18-0400 Body weight 64.5 kg Ana Hilario MD Work Phone: [facility] 01-19-2025 10:18-0400 Diastolic blood pressure 68 mm[Hg] Ana Hilario MD Work Phone: [facility] 01-19-2025 10:18-0400 Systolic blood pressure 102 mm[Hg] Ana Hilario MD Work Phone: [facility] 12-22-2024 08:02-0400 Body mass index (BMI) [Ratio] 24.89 kg/m2 Yumiko Andersen BOARD MEMBER.CNM Work Phone: [facility] 12-22-2024 08:02-0400 Body weight 62.69 kg Yumiko Andersen BOARD MEMBER.CNM Work Phone: [facility] 12-22-2024 08:02-0400 Diastolic blood pressure 60 mm[Hg] Yumiko Adnersen BOARD MEMBER.CNM Work Phone: [facility] 12-22-2024 08:02-0400 Systolic blood pressure 100 mm[Hg] Yumiko Andersen BOARD MEMBER.CNM Work Phone: [facility] 12-08-2024 08:45-0400 Body mass index (BMI) [Ratio] 24.85 kg/m2 Jenny Huitron APRN.STATISTICAL MACHINE MECHANIC Work Phone: [facility] 12-08-2024 08:45-0400 Body weight 62.6 kg Jenny Haury BOARD MEMBER.STATISTICAL MACHINE MECHANIC Work Phone: [facility] 12-08-2024 08:45-0400 Diastolic blood pressure 60 mm[Hg] Jenny Haury BOARD MEMBER.STATISTICAL MACHINE MECHANIC Work Phone: [facility] 12-08-2024 08:45-0400 Systolic blood pressure 100 mm[Hg] Jenny Haury BOARD MEMBER.STATISTICAL MACHINE MECHANIC Work Phone: [facility] 11-10-2024 08:48-0400 Body mass index (BMI) [Ratio] 23.77 kg/m2 Jenny Haury BOARD MEMBER.STATISTICAL MACHINE MECHANIC Work Phone: [facility] 11-10-2024 08:48-0400 Body weight 59.88 kg Jenny Haury BOARD MEMBER.STATISTICAL MACHINE MECHANIC Work Phone: [facility] 11-10-2024 08:48-0400 Diastolic blood pressure 60 mm[Hg] Jenny Haury BOARD MEMBER.STATISTICAL MACHINE MECHANIC Work Phone: [facility] 11-10-2024 08:48-0400 Systolic blood pressure 100 mm[Hg] Jenny Haury BOARD MEMBER.STATISTICAL MACHINE MECHANIC Work Phone: [facility] 10-13-2024 11:14-0400 Body mass index (BMI) [Ratio] 22.87 kg/m2 Ethel Ruiz BOARD MEMBER.CNM Work Phone: [facility] 10-13-2024 11:14-0400 Body weight 57.61 kg Ethel Ruiz BOARD MEMBER.CNM Work Phone: [facility] 10-13-2024 11:14-0400 Diastolic blood pressure 62 mm[Hg] Ethel Ruiz BOARD MEMBER.CNM Work Phone: [facility] 10-13-2024 11:14-0400 Systolic blood pressure 108 mm[Hg] Ethel Ruiz BOARD MEMBER.CNM Work Phone: [facility] 09-20-2024 08:33-0400 Body mass index (BMI) [Ratio] 21.79 kg/m2 Karoline Bautista MD Work Phone: [facility] 09-20-2024 08:33-0400 Body weight 54.88 kg Karoline Bautista MD Work Phone: [facility] 09-20-2024 08:33-0400 Diastolic blood pressure 56 mm[Hg] Karoline Bautista MD Work Phone: [facility] 09-20-2024 08:33-0400 Systolic blood pressure 96 mm[Hg] Karoline Bautista MD Work Phone: [facility] 08-17-2024 14:30-0400 Body mass index (BMI) [Ratio] 21.79 kg/m2 Ethel Ruiz BOARD MEMBER.CNM Work Phone: [facility] 08-17-2024 14:30-0400 Body weight 54.88 kg Ethel Ruiz BOARD MEMBER.CNM Work Phone: [facility] 08-17-2024 14:30-0400 Diastolic blood pressure 64 mm[Hg] Ethel Ruiz BOARD MEMBER.CNM Work Phone: [facility] 08-17-2024 14:30-0400 Systolic blood pressure 110 mm[Hg] Ethel Ruiz BOARD MEMBER.CNM Work Phone: [facility] 08-17-2024 10:30-0400 Body height 158.7 cm Jeannie Podlogar BOARD MEMBER.STATISTICAL MACHINE MECHANIC Work Phone: [facility] 08-17-2024 10:30-0400 Body mass index (BMI) [Ratio] 21.18 kg/m2 Jeannie Podlogar BOARD MEMBER.STATISTICAL MACHINE MECHANIC Work Phone: [facility] 08-17-2024 10:30-0400 Body weight 53.34 kg Jeannie Podlogar BOARD MEMBER.STATISTICAL MACHINE MECHANIC Work Phone: [facility] 08-17-2024 10:30-0400 Diastolic blood pressure 76 mm[Hg] Jeannie Podlogar BOARD MEMBER.STATISTICAL MACHINE MECHANIC Work Phone: [facility] 08-17-2024 10:30-0400 Heart rate 91 /min Jeannie Podlogar BOARD MEMBER.STATISTICAL MACHINE MECHANIC Work Phone: [facility] 08-17-2024 10:30-0400 Respiratory rate 18 /min Jeannie Podlogar BOARD MEMBER.STATISTICAL MACHINE MECHANIC Work Phone: [facility] 08-17-2024 10:30-0400 SaO2% (BldA) [Mass fraction] 98 % Jeannie Podlogar BOARD MEMBER.STATISTICAL MACHINE MECHANIC Work Phone: [facility] 08-17-2024 10:30-0400 Systolic blood pressure 98 mm[Hg] Jeannie Podlogar BOARD MEMBER.STATISTICAL MACHINE MECHANIC Work Phone: [facility] 07-20-2024 08:19-0500 Body mass index (BMI) [Ratio] 21.21 kg/m2 Marielle Jessy BOARD MEMBER.STATISTICAL MACHINE MECHANIC Work Phone: [facility] 07-20-2024 08:19-0500 Body weight 53.16 kg Marielle Jessy BOARD MEMBER.STATISTICAL MACHINE MECHANIC Work Phone: [facility] 07-20-2024 08:19-0500 Diastolic blood pressure 56 mm[Hg] Marielle Martin BOARD MEMBER.STATISTICAL MACHINE MECHANIC Work Phone: [facility] 07-20-2024 08:19-0500 Systolic blood pressure 98 mm[Hg] Marielle Martin BOARD MEMBER.STATISTICAL MACHINE MECHANIC Work Phone: [facility] 03-29-2024 16:58-0400 Body height 160 cm Castro Heart MD Work Phone: [facility] 03-29-2024 16:58-0400 Body mass index (BMI) [Ratio] 20.9 kg/m2 Castro Heart MD Work Phone: [facility] 03-29-2024 16:58-0400 Body weight 53.52 kg Castro Heart MD Work Phone: [facility] 03-29-2024 16:58-0400 Diastolic blood pressure 67 mm[Hg] Castro Heart MD Work Phone: [facility] 03-29-2024 16:58-0400 Heart rate 82 /min Castro Heart MD Work Phone: [facility] 03-29-2024 16:58-0400 Systolic blood pressure 100 mm[Hg] Castro Heart MD Work Phone: [facility] 02-13-2024 08:23-0400 Body height 158.3 cm Phillip Castro MD Work Phone: [facility] 02-13-2024 08:23-0400 Body mass index (BMI) [Ratio] 21.72 kg/m2 Phillip Castro MD Work Phone: [facility] 02-13-2024 08:23-0400 Body weight 54.43 kg Phillip Castro MD Work Phone: [facility] 02-13-2024 08:23-0400 Diastolic blood pressure 64 mm[Hg] Phillip Castro MD Work Phone: [facility] 02-13-2024 08:23-0400 Systolic blood pressure 112 mm[Hg] Phillip Castro MD Work Phone: [facility] 01-02-2023 14:54-0400 Body weight 55.79 kg Phillip Castro MD Work Phone: [facility] 01-02-2023 14:54-0400 Diastolic blood pressure 70 mm[Hg] Phillip Castro MD Work Phone: [facility] 01-02-2023 14:54-0400 Systolic blood pressure 112 mm[Hg] Phillip Castro MD Work Phone: [facility] 12-16-2022 14:42-0400 Body weight 64.41 kg Crystal Hurtado MD Work Phone: [facility] 12-16-2022 14:42-0400 Diastolic blood pressure 63 mm[Hg] Crystal Hurtado MD Work Phone: [facility] 12-16-2022 14:42-0400 Systolic blood pressure 98 mm[Hg] Crystal Hurtado MD Work Phone: [facility] 12-13-2022 10:02-0400 Body weight 63.96 kg Crystal Hurtado MD Work Phone: [facility] 12-13-2022 10:02-0400 Diastolic blood pressure 68 mm[Hg] Crystal Hurtado MD Work Phone: [facility] 12-13-2022 10:02-0400 Systolic blood pressure 108 mm[Hg] Crystal Hurtado MD Work Phone: [facility] 12-09-2022 10:04-0400 Body weight 64.68 kg Karoline Bautista MD Work Phone: [facility] 12-09-2022 10:04-0400 Diastolic blood pressure 62 mm[Hg] Karoline Bautista MD Work Phone: [facility] 12-09-2022 10:04-0400 Systolic blood pressure 118 mm[Hg] Karoline Bautista MD Work Phone: [facility] 11-25-2022 11:07-0400 Body weight 63.5 kg Ethel Ruiz BOARD MEMBER.CNM Work Phone: [facility] 11-25-2022 11:07-0400 Diastolic blood pressure 60 mm[Hg] Ethel Ruiz BOARD MEMBER.CNM Work Phone: [facility] 11-25-2022 11:07-0400 Systolic blood pressure 100 mm[Hg] Ethel Ruiz BOARD MEMBER.CNM Work Phone: [facility] 11-19-2022 08:12-0400 Body weight 61.6 kg Ethel Ruiz BOARD MEMBER.CNM Work Phone: [facility] 11-19-2022 08:12-0400 Diastolic blood pressure 62 mm[Hg] Ethel Ruiz BOARD MEMBER.CNM Work Phone: [facility] 11-19-2022 08:12-0400 Systolic blood pressure 98 mm[Hg] Ethel Ruiz CNM Work Phone: [facility] 11-04-2022 10:39-0400 Body weight 61.51 kg Phillip Castro MD Work Phone: [facility] 11-04-2022 10:39-0400 Diastolic blood pressure 60 mm[Hg] Phillip Castro MD Work Phone: [facility] 11-04-2022 10:39-0400 Systolic blood pressure 100 mm[Hg] Phillip Castro MD Work Phone: [facility] 10-03-2022 14:44-0400 Body weight 59.88 kg Brijesh Biswas MD Work Phone: [facility] 10-03-2022 14:44-0400 Diastolic blood pressure 62 mm[Hg] Brijesh Biswas MD Work Phone: [facility] 10-03-2022 14:44-0400 Systolic blood pressure 92 mm[Hg] Brijesh Biswas MD Work Phone: [facility] 09-20-2022 10:59-0400 Body weight 58.51 kg Brijesh Biswas MD Work Phone: [facility] 09-20-2022 10:59-0400 Diastolic blood pressure 58 mm[Hg] Brijesh Biswas MD Work Phone: [facility] 09-20-2022 10:59-0400 Systolic blood pressure 94 mm[Hg] Brijesh Biswas MD Work Phone: [facility] 09-05-2022 09:52-0400 Body weight 56.84 kg Karoline Bautista MD Work Phone: [facility] 09-05-2022 09:52-0400 Diastolic blood pressure 60 mm[Hg] Karoline Bautista MD Work Phone: [facility] 09-05-2022 09:52-0400 Systolic blood pressure 100 mm[Hg] Karoline Bautista MD Work Phone: [facility] 08-28-2022 20:30-0400 Diastolic blood pressure 78 mm[Hg] [facility] 08-28-2022 20:30-0400 Heart rate 67 /min [facility] 08-28-2022 20:30-0400 Respiratory rate 17 /min [facility] 08-28-2022 20:30-0400 SaO2% (BldA) [Mass fraction] 100 % [facility] 08-28-2022 20:30-0400 Systolic blood pressure 110 mm[Hg] [facility] 08-28-2022 17:25-0400 Body height 160.02 cm [facility] 08-28-2022 17:25-0400 Body mass index (BMI) [Ratio] 21.6 kg/m2 [facility] 08-28-2022 17:25-0400 Body temperature 97.5 [degF] [facility] 08-28-2022 17:25-0400 Body weight 55.33 kg [facility] 06-07-2022 08:19-0500 Body weight 50.89 kg Brijesh Biswas MD Work Phone: [facility] 06-07-2022 08:19-0500 Diastolic blood pressure 60 mm[Hg] Brijesh Biswas MD Work Phone: [facility] 06-07-2022 08:19-0500 Systolic blood pressure 92 mm[Hg] Brijesh Biswas MD Work Phone: [facility] 05-10-2022 11:40-0500 Body height 160 cm Phillip Castro MD Work Phone: [facility] 05-10-2022 11:40-0500 Body weight 50.62 kg Phillip Castro MD Work Phone: [facility] 05-10-2022 11:40-0500 Diastolic blood pressure 60 mm[Hg] Phillip Castro MD Work Phone: [facility] 05-10-2022 11:40-0500 Systolic blood pressure 90 mm[Hg] Phillip Castro MD Work Phone: [facility] 04-01-2022 09:25-0400 Body height 160 cm Phillip Castro MD Work Phone: [facility] 04-01-2022 09:25-0400 Body weight 52.8 kg Phillip Castro MD Work Phone: [facility] 04-01-2022 09:25-0400 Diastolic blood pressure 54 mm[Hg] Phillip Castro MD Work Phone: [facility] 04-01-2022 09:25-0400 Systolic blood pressure 82 mm[Hg] Phillip Castro MD Work Phone: [facility] 08-03-2021 09:11-0500 Body mass index (BMI) [Ratio] 21.26 kg/m2 Frida C Ray Work Phone: [facility] Work Phone: 08-03-2021 09:11-0500 Body surface area Derived from formula 1.56 m2 Frida C Ray Work Phone: [facility] Work Phone: 08-03-2021 09:11-0500 Body weight 54.43 kg Frida C Ray Work Phone: [facility] Work Phone: 08-03-2021 09:11-0500 Diastolic blood pressure 70 mm[Hg] Frida C Ray Work Phone: [facility] Work Phone: 08-03-2021 09:11-0500 Heart rate 72 /min Frida C Ray Work Phone: [facility] Work Phone: 08-03-2021 09:11-0500 SaO2% (BldA) [Mass fraction] 98 % Frida C Ray Work Phone: [facility] Work Phone: 08-03-2021 09:11-0500 Systolic blood pressure 108 mm[Hg] Frida C Ray Work Phone: [facility] Work Phone: 03-07-2021 15:24-0400 Body height 160.02 cm Frida C Ray Work Phone: [facility] Work Phone: 03-07-2021 15:24-0400 Body mass index (BMI) [Ratio] 21.47 kg/m2 Frida C Ray Work Phone: [facility] Work Phone: 03-07-2021 15:24-0400 Body surface area Derived from formula 1.56 m2 Frida C Ray Work Phone: [facility] Work Phone: 03-07-2021 15:24-0400 Body temperature 97.1 [degF] Frida C Ray Work Phone: [facility] Work Phone: 03-07-2021 15:24-0400 Body weight 54.98 kg Frida C Ray Work Phone: [facility] Work Phone: 03-07-2021 15:24-0400 Diastolic blood pressure 60 mm[Hg] Frida C Ray Work Phone: [facility] Work Phone: 03-07-2021 15:24-0400 Heart rate 70 /min Frida C Ray Work Phone: [facility] Work Phone: 03-07-2021 15:24-0400 Respiratory rate 16 /min Frida C Ray Work Phone: [facility] Work Phone: 03-07-2021 15:24-0400 SaO2% (BldA) [Mass fraction] 97 % Frida C Ray Work Phone: [facility] Work Phone: 03-07-2021 15:24-0400 Systolic blood pressure 104 mm[Hg] Frida Lieberman Work Phone: [facility] Work Phone: 02-12-2021 17:30-0400 Body height 160.02 cm Ana Luigi Boateng Work Phone: [facility] Work Phone: 02-12-2021 17:30-0400 Body mass index (BMI) [Ratio] 21.26 kg/m2 Ana Luigi Boateng Work Phone: [facility] Work Phone: 02-12-2021 17:30-0400 Body surface area Derived from formula 1.56 m2 Ana Boateng Work Phone: [facility] Work Phone: 02-12-2021 17:30-0400 Body temperature 96.9 [degF] Ana Luigi Boateng Work Phone: [facility] Work Phone: 02-12-2021 17:30-0400 Body weight 54.43 kg Ana Luigi Boateng Work Phone: [facility] Work Phone: 02-12-2021 17:30-0400 Diastolic blood pressure 60 mm[Hg] Ana Boateng Work Phone: [facility] Work Phone: 02-12-2021 17:30-0400 Heart rate 75 /min Ana Boateng Work Phone: [facility] Work Phone: 02-12-2021 17:30-0400 Respiratory rate 18 /min Ana Boateng Work Phone: [facility] Work Phone: 02-12-2021 17:30-0400 SaO2% (BldA) [Mass fraction] 97 % Ana Boateng Work Phone: [facility] Work Phone: 02-12-2021 17:30-0400 Systolic blood pressure 130 mm[Hg] Ana Boateng Work Phone: [facility] Work Phone: 10-25-2020 11:53-0400 Body height 160.02 cm Ana Boateng Work Phone: [facility] Work Phone: 10-25-2020 11:53-0400 Body mass index (BMI) [Ratio] 20.55 kg/m2 Ana Boateng Work Phone: [facility] Work Phone: 10-25-2020 11:53-0400 Body surface area Derived from formula 1.53 m2 Ana Boateng Work Phone: [facility] Work Phone: 10-25-2020 11:53-0400 Body weight 52.62 kg Ana Boateng Work Phone: [facility] Work Phone: 10-25-2020 11:53-0400 Diastolic blood pressure 54 mm[Hg] Ana Boateng Work Phone: [facility] Work Phone: 10-25-2020 11:53-0400 Heart rate 79 /min Ana Boateng Work Phone: [facility] Work Phone: 10-25-2020 11:53-0400 SaO2% (BldA) [Mass fraction] 97 % Ana Boateng Work Phone: [facility] Work Phone: 10-25-2020 11:53-0400 Systolic blood pressure 90 mm[Hg] Ana Boateng Work Phone: [facility] Work Phone: 06-13-2020 08:07-0500 BMI (Body Mass Index) 24.87 kg/m2 Bessy Tan [facility] 06-13-2020 08:07-0500 [facility] 01:11-0500 BMI (Body Mass Index) 24.87 kg/m2 [facility] 06-11-2020 01:11-0500 Body weight 61.69 kg [facility] Encounters Encounter Date Encounter Type Care Provider Facility Start: 02-16-2025 End: 02-16-2025 Patient encounter procedure nAa Hilario MD Work Phone: OB/Gynecology Comment on above: Encounter for superv ision of other normal in third trimester (HCC) (Primary Dx); History of hypothyroidism; 38 weeks gestation of (HCC) Start: 02-16-2025 End: 02-16-2025 ambulatory ALFREDO DURAN Facility:[facility] Start: 02-10-2025 End: 02-10-2025 ambulatory [facility] Start: 02-10-2025 End: 02-10-2025 Patient encounter procedure [facility] Comment on above: Population Health Na vigation Outreach ( to PCP/OB/) Start: 02-09-2025 End: 02-09-2025 Patient encounter procedure Yumiko Andersen APRN.CNM Work Phone: OB/Gynecology Comment on above: 37 weeks gestation o f (HCC) (Primary Dx); History of hypothyroidism; Encounter for supervision of other normal in third trimester (HCC) Start: 02-09-2025 End: 02-09-2025 ambulatory ALFREDO DURAN Facility:[facility] Start: 02-02-2025 End: 02-02-2025 Patient encounter procedure Ethel Ruiz APRN.CNM Work Phone: OB/Gynecology Comment on above: Encounter for superv ision of other normal in third trimester (HCC) (Primary Dx); 36 weeks gestation of (HCC); History of hypothyroidism Start: 02-02-2025 End: 02-02-2025 ambulatory ALFREDO DURAN Facility:[facility] Start: 01-19-2025 End: 01-19-2025 Patient encounter procedure Ana Hilario MD Work Phone: OB/Gynecology Comment on above: 34 weeks gestation o f (HCC) (Primary Dx); Encounter for supervision of other normal in third trimester (HCC); History of hypothyroidism Start: 01-19-2025 End: 01-19-2025 ambulatory ALFREDO DURAN Facility:[facility] Start: 01-05-2025 End: 01-05-2025 ambulatory KAROLINE BAUTISTA Facility:[facility] Start: 12-22-2024 End: 12-22-2024 Patient encounter procedure Yumiko Andersen APRN.CNM Work Phone: OB/Gynecology Comment on above: 30 weeks gestation o f (HCC) (Primary Dx); Encounter for supervision of other normal in third trimester ([facility]); Bilateral hip pain Start: 12-22-2024 End: 12-22-2024 ambulatory ALFREDO DURAN Facility:[facility] Start: 12-13-2024 End: 02-12-2025 Follow-up encounter Jenny Huitron APRN.CNP Work Phone: OB/Gynecology Start: 12-08-2024 End: 12-08-2024 Patient encounter procedure Jenny Huitron APRN.CNP Work Phone: OB/Gynecology Comment on above: Encounter for superv ision of other normal in second trimester (HCC) (Primary Dx); 28 weeks gestation of (HCC); History of hypothyroidism; Encounter for supervision of normal intrauterine in multigravida, antepartum ([facility]) Start: 12-08-2024 End: 12-08-2024 ambulatory ALFREDO DURAN Facility:[facility] Start: 11-30-2024 End: 12-06-2024 ambulatory Jenny Huitron [...] Start: 11-10-2024 End: 11-10-2024 ambulatory ALFREDO DURAN Facility:[facility] Start: 10-13-2024 End: 10-13-2024 Patient encounter procedure Ethel Ruiz APRN.CNM Work Phone: OB/Gynecology Comment on above: Encounter for superv ision of other normal in second trimester (HCC) (Primary Dx); 20 weeks gestation of (HCC); History of hypothyroidism; History of anxiety Encounter for anatomic survey (HCC) (Primary Dx); 21 weeks gestation of (HCC) Start: 10-13-2024 End: 10-13-2024 ambulatory ALFREDO DURAN Facility:[facility] Start: 09-27-2024 End: 09-28-2024 Telephone encounter Phillip Castro MD Work Phone: OB/Gynecology Comment on above: breast pump Start: 09-20-2024 End: 09-20-2024 Patient encounter procedure Karoline Bautista MD Work Phone: OB/Gynecology Comment on above: Encounter for superv ision of normal intrauterine in multigravida, antepartum (HCC) (Primary Dx) Start: 09-20-2024 End: 09-20-2024 ambulatory ALFREDO DURAN Facility:[facility] Start: 08-17-2024 End: 08-17-2024 ambulatory ALFREDO DURAN Facility:[facility] Start: 08-17-2024 End: 08-17-2024 Patient encounter procedure Ethel Ruiz APRN.CNM Work Phone: OB/Gynecology Comment on above: Encounter for superv ision of other normal in second trimester (Primary Dx); 12 weeks gestation of ; History of anxiety; History of hypothyroidism; related nausea, antepartum Start: 08-17-2024 End: 08-17-2024 ambulatory ALFREDO DURAN Facility:[facility] Start: 08-17-2024 Encounter for genera l adult medical examination without abnormal findings [facility] Start: 08-17-2024 End: 08-17-2024 Patient encounter procedure Jeannie Taylor BOARD MEMBERJACOB Work Phone: [facility] [place] Comment on above: Encounter for medica l examination to establish care (Primary Dx) Encounter for antena steve screening for malformation using ultrasound (Primary Dx); 12 weeks gestation of Start: 08-17-2024 End: 08-17-2024 Patient encounter status Jeannie Taylor APRN.CNP Work Phone: [facility] Work Phone: Start: 07-20-2024 End: 09-19-2024 Follow-up encounter Marielle Jiménez APRN.CNP Work Phone: OB/Gynecology Start: 07-20-2024 End: 07-20-2024 ambulatory ANA BOATENG Facility:[facility] Start: 07-20-2024 End: 07-20-2024 Patient encounter procedure Marielle Jiménez APRN.CNP Work Phone: OB/Gynecology Comment on above: with uncer tain dates, antepartum (Primary Dx); 8 weeks gestation of ; Screen for STD (sexually transmitted disease); Screening for cervical cancer; Encounter for supervision of normal intrauterine in multigravida, antepartum; Hyperemesis of Start: 07-17-2024 End: 07-17-2024 Emergency department patient visit Maxim Francisco Facility:[facility] Start: 07-15-2024 End: 07-15-2024 ambulatory Ethel Ruiz [...] 20 minutes Castro Heart MD Work Phone: [facility] Comment on above: Impacted cerumen of left ear (Primary Dx) Start: 03-29-2024 End: 03-29-2024 [facility] Start: 02-13-2024 End: 02-13-2024 Patient encounter procedure Phillip Castro MD Work Phone: OB/Gynecology Comment on above: Encounter for gyneco logical examination (general) (routine) without abnormal findings (Primary Dx) Start: 02-13-2024 End: 02-13-2024 Patient encounter status Phillip Castro MD Work Phone: [facility] Start: 01-02-2023 End: 01-02-2023 Patient encounter procedure [...] 08-28-2022 End: 08-28-2022 Emergency department patient visit [facility] Start: 08-28-2022 Telephone encounter Crystal Hurtado [...] evaluation of patient and report Nurse Pnob [facility] Work Phone: OB/Gynecology Comment on above: [...] OB/Gynecology Comment on above: Received Outside [facility] Records Start: 04-01-2022 End: 04-01-2022 Patient encounter procedure Phillip Castro MD Work Phone: OB/Gynecology Comment on above: Encounter for gyneco logical examination without abnormal finding (Primary Dx); Encounter for screening for malignant neoplasm of cervix Start: 04-01-2022 End: 04-01-2022 Patient encounter status Phillip Castro MD Work Phone: OB/Gynecology Start: 11-30-2021 Postop follow up vis it related to original px No PCP None -[facility] Work Phone: Start: 11-28-2021 NPV, Provider: Ramona Morse, Status: Pen, Time: 7:40 AM No PCP None [facility] Work Phone: Start: 11-26-2021 Chart Update No PCP None -[facility] Work Phone: Start: 11-07-2021 Chart Update No PCP None -[facility] Work Phone: Start: 11-06-2021 Patient encounter procedure No PCP None -[facility] Work Phone: Start: 10-26-2021 Chart Update Frida C Ray Work Phone: [facility] Work Phone: Start: 09-27-2021 Rx Change Frida C Ray Work Phone: [facility] Work Phone: Start: 08-24-2021 Rx Renewal Frida C Ray Work Phone: [facility] Work Phone: Start: 08-03-2021 Office consultation new/estab patient 60 min Frida C Ray Work Phone: [facility] Work Phone: Start: 07-27-2021 NPV, Provider: Alfredo Bowden, Status: Pen, Time: 8:40 AM Frida C Ray Work Phone: [facility] Work Phone: Start: 07-18-2021 AUDIT Frida C Ray Work Phone: [facility] Work Phone: Start: 03-07-2021 Current tobacco non- user cad cap copd pv dm Frida C Ray Work Phone: [facility] Work Phone: Start: 03-07-2021 Office outpatient vi sit 15 minutes Frida C Ray Work Phone: [facility] Work Phone: Start: 03-01-2021 Chart Update Frida C Ray Work Phone: [facility] Work Phone: Start: 02-15-2021 Chart Update Ana alfaor Work Phone: [facility] Work Phone: Start: 02-12-2021 Current tobacco non- user cad cap copd pv dm Ana Boateng Work Phone: [facility] Work Phone: Start: 02-12-2021 Office outpatient vi sit 25 minutes Frida C Ray Work Phone: [facility] Work Phone: Start: 10-25-2020 Current tobacco non- user cad cap copd pv dm Ana Boateng Work Phone: [facility] Work Phone: Start: 04-22-2018 End: 04-23-2018 Patient encounter procedure PAULETTE BIGGS Facility:[facility] Start: 04-22-2018 End: 04-23-2018 Patient encounter procedure PAULETTE BIGGS Facility:[facility] Start: 04-18-2018 End: 04-18-2018 Emergency department patient visit [facility] Start: 08-29-2017 End: 08-30-2017 Patient encounter procedure Kalie Sylvester Facility:[facility] Start: 06-19-2017 End: 06-20-2017 Patient encounter procedure PAULETTE BIGGS Facility:[facility] Bessy Tan S Procedures Date Procedure Procedure Detail Performing Clinician Start: 02-16-2025 Urnls dip stick/tabl et rgnt non-auto w/o micrscp Karoline Bautista MD Work Phone: Start: 02-09-2025 Urnls dip stick/tabl et rgnt non-auto w/o micrscp Yumiko Andersen BOARD MEMBER.CNM Work Phone: Start: 02-02-2025 Urnls dip stick/tabl et rgnt non-auto w/o micrscp Ethel Ruiz BOARD MEMBER.CNM Work Phone: Start: 01-19-2025 Urnls dip stick/tabl et rgnt non-auto w/o micrscp Ana Hilario MD Work Phone: Start: 10-13-2024 Us preg uterus after 1st trimest 1/ gestation Marielle Martin BOARD MEMBER.STATISTICAL MACHINE MECHANIC Work Phone: Start: 08-17-2024 Antibody screen NANNETTE DURAN Comment on above: Order Comment: Speci men Type: BLOOD SPECIMEN Ordering Facility: [facility] Address: [address] [place] [address] Performed By: #### T SPN #### [facility] CLIA [id number] [address] [place], [place] [address] [address] [place] Start: 08-17-2024 Us preg uterus after 1st trimest 1/1st gestation Marielle Jessy BOARD MEMBER.STATISTICAL MACHINE MECHANIC Work Phone: Start: 07-20-2024 Us uterus limited 1/> fetuses Marielle Martin BOARD MEMBER.STATISTICAL MACHINE MECHANIC Work Phone: Start: 12-16-2022 URINE OB DIP B/O Crystal Hurtado MD Work Phone: Start: 12-13-2022 URINE OB DIP B/O Crystal Hurtado MD Work Phone: Start: 12-09-2022 URINE OB DIP B/O Melvin Bautista MD Work Phone: Start: 11-25-2022 URINE OB DIP B/O Césarssic antoni Ruiz BOARD MEMBER.CNM Work Phone: Start: 11-19-2022 URINE OB DIP B/O Jessic a Ruiz BOARD MEMBER.CNM Work Phone: Start: 11-04-2022 URINE OB DIP [...] f 2) Zoster Vaccines (1 of 2) [facility] Start: 09-20-2032 Urine microalbumin profile [facility] Start: 07-20-2029 Screening for malign ant neoplasm of cervix Cervical Cancer Screening [facility] Start: 04-01-2027 HPV TESTING HPV TESTING [facility] Start: 04-01-2027 PAP TESTING PAP TESTING [facility] Start: 02-14-2026 Lipid panel Lipid Panel [facility] Start: 08-17-2025 Covid-19 Vaccine () Covid-19 Vaccine () [facility] Comment on above: Postponed from 01/31 (Declined at this time) Start: 08-17-2025 End: 08-17-2025 Patient encounter procedure 08/17/2025 8:40 AM EDT Office Visit [facility] [address] [place] [place] [address] PodJeannie bashir APRN.STATISTICAL MACHINE MECHANIC [address] [place] [address] Yearly Exam [facility] Comment on above: Yearly Exam Start: 04-01-2025 PAP TESTING PAP TESTING [facility] Start: 04-01-2025 Screening for malign ant neoplasm of cervix [facility] Start: 02-23-2025 End: 02-23-2025 Patient encounter procedure 02/23/2025 8:10 AM EDT Routine Office Visit OB/Gynecology [address] [place] [address] Ana Hilario MD [address] [place] [address] OB OB/Gynecology Comment on above: OB Start: 02-16-2025 End: 02-16-2025 Patient encounter procedure 02/16/2025 8:30 AM EDT Routine Office Visit OB/Gynecology [address] [place] [address] Karoline Bautista MD [address] [place] [address] OB OB/Gynecology Comment on above: OB Start: 02-14-2025 End: 02-14-2025 Patient encounter procedure 02/14/2025 8:40 AM EDT Office Visit OB/Gynecology [address] [place] [address] Phillip Castro MD [address] [place] [address] Annual OB/Gynecology Comment on above: Annual Start: 02-09-2025 End: 02-09-2025 Patient encounter procedure 02/09/2025 10:15 AM EDT Routine Office Visit OB/Gynecology [address] [place] [address] Yumiko Andersen APRN.CNM [address] [place] [address] (Fax) OB OB/Gynecology Comment on above: OB Start: 02-02-2025 End: 02-02-2025 Patient encounter procedure 02/02/2025 9:30 AM EDT Office Visit OB/Gynecology [address] [place] [address] Ethel Ruiz APRN.CNM [address] [place] [address] (Fax) OB OB/Gynecology Comment on above: OB Start: 01-31-2025 Influenza vaccination [facility] Start: 01-31-2025 RSV Vaccine (1 - Ris k 1-dose series) RSV Vaccine (1 - Risk 1-dose series) [facility] Start: 01-05-2025 End: 01-05-2025 Patient encounter procedure 01/05/2025 8:30 AM EDT Routine Office Visit OB/Gynecology [address] [place] [address] Karoline Bautista MD [address] [place] [address] (Fax) OB OB/Gynecology Comment on above: OB Start: 12-22-2024 End: 12-22-2024 Patient encounter procedure 12/22/2024 8:00 AM EDT Routine Office Visit OB/Gynecology [address] [place] [address] Yumiko Andersen APRN.CNM [address] [place] [address] OB OB/Gynecology Comment on above: OB Start: 12-08-2024 End: 12-08-2024 ambulatory 12/08/2024 9:30 AM EDT Results Only Heather Schneider [facility] [address] [place] [address] [place] [facility] Start: 12-08-2024 End: 12-08-2024 Patient encounter procedure OB/Gynecology Comment on above: OB OB- FMLA paperwork i n chart prep binder Start: 11-29-2024 Influenza vaccination Influenza Vacc ine (#1) [facility] Comment on above: Postponed from 01/31 (Declined at this time) Start: 11-10-2024 End: 02-09-2025 ANEMIA REFLEX PANEL ANEMIA REFLEX PANEL Lab Routine Encounter for supervision of other normal in second trimester (HCC) 24 weeks gestation of ([facility]) Expected: 11/10/2024, Expires: 02/09/2025 [facility] Comment on above: Expected: 11/10/2024 , Expires: 02/09/2025 Start: 11-10-2024 End: 11-10-2025 GESTATIONAL GLUCOSE SCREEN, 1-HOUR, 50 GRAM, NON-FASTING GESTATIONAL GLUCOSE SCREEN, 1-HOUR, 50 GRAM, NON-FASTING Lab Routine Encounter for supervision of other normal in second trimester (HCC) 24 weeks gestation of ([facility]) Screening for diabetes mellitus Expected: 11/10/2024, Expires: 11/10/[address] [facility] Work Phone: Comment on above: Expected: 11/10/2024 , Expires: 11/10/2025 Start: 11-10-2024 End: 11-10-2025 SYPHILIS TREPONEMAL W/REFLEX SYPHILIS TREPONEMAL W/REFLEX Lab Routine Encounter for supervision of other normal in second trimester (HCC) 24 weeks gestation of ([facility]) Expected: 11/10/2024, Expires: 11/10/2025 [facility] Comment on above: Expected: 11/10/2024 , Expires: 11/10/2025 Start: 11-10-2024 End: 02-09-2025 Thyrotropin [Units/volume] in Serum or Plasma THYROID STIMULATING HORMONE Lab Routine History of hypothyroidism Expected: 11/10/2024, Expires: 02/09/2025 [facility] Comment on above: Expected: 11/10/2024 , Expires: 02/09/2025 Start: 11-10-2024 End: 02-09-2025 Thyroxine (T4) free [Mass/volume] in Serum or Plasma T4 FREE/FREE THYROXINE Lab Routine History of hypothyroidism Expected: 11/10/2024, Expires: 02/09/2025 [facility] Comment on above: Expected: 11/10/2024 , Expires: 02/09/2025 Start: 11-10-2024 End: 11-10-2024 Patient encounter procedure 11/10/2024 9:00 AM EDT Routine Office Visit OB/Gynecology [address] [place] [address] Jenny Huitron APRN.STATISTICAL MACHINE MECHANIC [address] [place] [address] OB OB/Gynecology Comment on above: OB Start: 10-13-2024 End: 10-13-2024 Patient encounter procedure [facility] Comment on above: Anatomy OB Start: 10-12-2024 End: 10-12-2024 Patient encounter procedure Maternal Medicine Comment on above: Anatomy Anatomy/OB Start: 09-20-2024 End: 09-20-2024 Patient encounter procedure 09/20/2024 8:30 AM EDT Routine Office Visit OB/Gynecology [address] [place] [address] Karoline Bautista MD [address] [place] [address] OB OB/Gynecology Comment on above: OB Start: 09-14-2024 End: 09-14-2024 Patient encounter procedure 09/14/2024 8:30 AM EDT Routine Office Visit OB/Gynecology [address] [place] [address] Karoline Bautista MD [address] [place] [address] OB OB/Gynecology Comment on above: OB Start: 08-17-2024 End: 08-17-2024 Patient encounter procedure 08/17/2024 2:30 PM EDT Routine Office Visit OB/Gynecology [address] [place] [address] Ethel Ruiz APRN.CN [address] [place] [address] Nuchal/OBLmp05/27/24 OB/Gynecology Comment on above: Nuchal/OBLmp05/27/24 Start: 08-17-2024 End: 08-17-2024 Patient encounter procedure [facility] Comment on above: est care PHYSICAL Nuchal Start: 08-09-2024 End: 08-09-2024 Patient encounter procedure 08/09/2024 1:10 PM EDT Routine Office Visit OB/Gynecology [address] [place] [address] Phillip Castro MD [address] [place] [address] New OB Lmp107/28/23 OB/Gynecology Comment on above: New OB Lmp107/28/23 Start: 07-20-2024 End: 10-19-2024 ANEMIA REFLEX PANEL ANEMIA REFLEX PANEL Lab Routine with uncertain dates, antepartum 8 weeks gestation of Screen for STD (sexually transmitted disease) Expected: 07/20/2024, Expires: 10/19/[address] [facility] Work Phone: Comment on above: Expected: 07/20/2024 , Expires: 10/19/2024 Start: 07-20-2024 End: 10-19-2024 Hemoglobin A1c in Blood HEMOGLOBIN A1C Lab Routine with uncertain dates, antepartum 8 weeks gestation of Screen for STD (sexually transmitted disease) Expected: 07/20/2024, Expires: 10/19/2024 [facility] Comment on above: Expected: 07/20/2024 , Expires: 10/19/2024 Start: 07-20-2024 End: 10-19-2024 Hepatitis B virus surface Ag [Presence] in Serum HEPATITIS B SURFACE ANTIGEN Lab Routine with uncertain dates, antepartum 8 weeks gestation of Screen for STD (sexually transmitted disease) Expected: 07/20/2024, Expires: 10/19/2024 [facility] Comment on above: Expected: 07/20/2024 , Expires: 10/19/2024 Start: 07-20-2024 End: 10-19-2024 Hepatitis C virus Ab [Presence] in Serum HEPATITIS C ANTIBODY IA WITH CONFIRMATION Lab Routine with uncertain dates, antepartum 8 weeks gestation of Screen for STD (sexually transmitted disease) Expected: 07/20/2024, Expires: 10/19/2024 [facility] Comment on above: Expected: 07/20/2024 , Expires: 10/19/2024 Start: 07-20-2024 End: 10-19-2024 HIV 1+2 Ab [Presence] in Serum or Plasma by Immunoassay HIV 1/2 COMBO WITH REFLEX TO DIFFERENTIATION Lab Routine with uncertain dates, antepartum 8 weeks gestation of Screen for STD (sexually transmitted disease) Expected: 07/20/2024, Expires: 10/19/2024 [facility] Comment on above: Expected: 07/20/2024 , Expires: 10/19/2024 Start: 07-20-2024 End: 07-20-2025 OBSTETRIC ULTRASOUND WHI OBSTETRIC ULTRASOUND WHI Anc Imaging Routine with uncertain dates, antepartum 8 weeks gestation of Screen for STD (sexually transmitted disease) Expected: 07/20/2024, Expires: 07/20/2025 [facility] Comment on above: Expected: 07/20/2024 , Expires: 07/20/2025 Start: 07-20-2024 End: 10-19-2024 RUBELLA IGG ANTIBODY RUBELLA IGG ANTIBODY Lab Routine with uncertain dates, antepartum 8 weeks gestation of Screen for STD (sexually transmitted disease) Expected: 07/20/2024, Expires: 10/19/2024 [facility] Comment on above: Expected: 07/20/2024 , Expires: 10/19/2024 Start: 07-20-2024 End: 10-19-2024 SYPHILIS TREPONEMAL W/REFLEX SYPHILIS TREPONEMAL W/REFLEX Lab Routine with uncertain dates, antepartum 8 weeks gestation of Screen for STD (sexually transmitted disease) Expected: 07/20/2024, Expires: 10/19/2024 [facility] Comment on above: Expected: 07/20/2024 , Expires: 10/19/2024 Start: 07-20-2024 End: 10-19-2024 Thyrotropin [Units/volume] in Serum or Plasma THYROID STIMULATING HORMONE Lab Routine 8 weeks gestation of Expected: 07/20/2024, Expires: 10/19/2024 [facility] Comment on above: Expected: 07/20/2024 , Expires: 10/19/2024 Start: 07-20-2024 End: 10-19-2024 TYPE + SCREEN TYPE + SCREEN Blood Bank Routine with uncertain dates, antepartum 8 weeks gestation of Screen for STD (sexually transmitted disease) Expected: 07/20/2024, Expires: 10/19/2024 [facility] Comment on above: Expected: 07/20/2024 , Expires: 10/19/2024 Start: 07-20-2024 End: 07-20-2024 Patient encounter procedure 07/20/2024 8:15 AM EST Initial Office Visit OB/Gynecology [address] [place] [address] Marielle Jiménez APRN.STATISTICAL MACHINE MECHANIC [address] [place] [address] New OB [facility]07/28/23 OB/Gynecology Comment on above: New OB [facility]107/28/23 Start: 07-12-2024 End: 10-11-2024 Thyrotropin [Units/volume] in Serum or Plasma [facility] Work Phone: Comment on above: Expected: 07/12/2024 , Expires: 10/11/2024 Start: 07-12-2024 End: 10-11-2024 Thyroxine (T4) free [Mass/volume] in Serum or Plasma [facility] Comment on above: Expected: 07/12/2024 , Expires: 10/11/2024 Start: 02-01-2024 Covid-19 Vaccine ( season) Covid-19 Vaccine () [facility] Start: 02-01-2024 COVID-19 Vaccine () COVID-19 Vaccine () [facility] Start: 02-01-2024 Influenza vaccination Influenza Vacc ine (#1) [facility] Start: 01-31-2023 Influenza vaccination [facility] Start: 09-19-2022 End: 11-19-2022 CBC W Auto Differential panel - Blood CBC + DIFF Lab Routine 26 weeks gestation of Encounter for supervision of other normal in second trimester Expected: 09/19/2022 (Approximate), Expires: 11/19/[address] [facility] Work Phone: Comment on above: Expected: 09/19/2022 (Approximate), Expires: 11/19/2022 Start: 09-19-2022 End: 11-19-2022 GEST GLUC SCREEN, 1-HR, 50 GM, NON-FASTING GEST GLUC SCREEN, 1-HR, 50 GM, NON-FASTING Lab Routine 26 weeks gestation of Encounter for supervision of other normal in second trimester Expected: 09/19/2022 (Approximate), Expires: 11/19/[address] [facility] Work Phone: Comment on above: Expected: 09/19/2022 (Approximate), Expires: 11/19/2022 Start: 09-19-2022 End: 11-19-2022 SYPHILIS TOTAL W/REFLEX SYPHILIS TOTAL W/REFLEX Lab Routine 26 weeks gestation of Encounter for supervision of other normal in second trimester Expected: 09/19/2022 (Approximate), Expires: 11/19/[address] [facility] Work Phone: Comment on above: Expected: 09/19/2022 (Approximate), Expires: 11/19/2022 Start: 08-28-2022 [facility] Start: 2022 HPV TESTING HPV TESTING [facility] Start: 06-07-2022 End: 06-07-2023 OBSTETRIC ULTRASOUND WHI OBSTETRIC ULTRASOUND WHI Anc Imaging Routine Encounter for supervision of other normal in first trimester Expected: 06/07/2022, Expires: 06/07/[address] [facility] Work Phone: Comment on above: Expected: 06/07/2022 , Expires: 06/07/2023 Start: 06-07-2022 End: 08-07-2022 Thyroxine (T4) free [Mass/volume] in Serum or Plasma [facility] Work Phone: Comment on above: Expected: 06/07/2022 , Expires: 08/07/2022 Start: 06-02-2022 DEPRESSION ASSESSMENT DEPRESSION ASS ESSMENT [facility] Start: 05-10-2022 End: 07-10-2022 CBC panel - Blood by Automated count CBC Lab Routine Encounter for supervision of other normal in first trimester 9 weeks gestation of Expected: 05/10/2022, Expires: 07/10/[address] [facility] Work Phone: Comment on above: Expected: 05/10/2022 , Expires: 07/10/2022 Start: 05-10-2022 End: 07-10-2022 Hepatitis B virus surface Ag [Presence] in Serum HEP B SURF AG SCRN Lab Routine Encounter for supervision of other normal in first trimester 9 weeks gestation of Expected: 05/10/2022, Expires: 07/10/[address] [facility] Work Phone: Comment on above: Expected: 05/10/2022 , Expires: 07/10/2022 Start: 05-10-2022 End: 07-10-2022 Hepatitis C virus Ab [Presence] in Serum HEP C AB IA W/CONF SCRN Lab Routine Encounter for supervision of other normal in first trimester 9 weeks gestation of Expected: 05/10/2022, Expires: 07/10/[address] [facility] Work Phone: Comment on above: Expected: 05/10/2022 , Expires: 07/10/2022 Start: 05-10-2022 End: 07-10-2022 HIV 1+2 Ab [Presence] in Serum or Plasma by Immunoassay HIV 1 2 COMBO(AG/AB),WITH REFLEX TO DIFFERENTIATION Lab Routine Encounter for supervision of other normal in first trimester 9 weeks gestation of Expected: 05/10/2022, Expires: 07/10/[address] [facility] Work Phone: Comment on above: Expected: 05/10/2022 , Expires: 07/10/2022 Start: 05-10-2022 End: 07-10-2022 RUBELLA IGG AB RUBELLA IGG AB Lab Routine Encounter for supervision of other normal in first trimester 9 weeks gestation of Expected: 05/10/2022, Expires: 07/10/[address] [facility] Work Phone: Comment on above: Expected: 05/10/2022 , Expires: 07/10/2022 Start: 05-10-2022 End: 07-10-2022 SYPHILIS TOTAL W/REFLEX SYPHILIS TOTAL W/REFLEX Lab Routine Encounter for supervision of other normal in first trimester 9 weeks gestation of Expected: 05/10/2022, Expires: 07/10/[address] [facility] Work Phone: Comment on above: Expected: 05/10/2022 , Expires: 07/10/2022 Start: 05-10-2022 End: 07-10-2022 Thyrotropin [Units/volume] in Serum or Plasma TSH BLD Lab Routine Encounter for supervision of other normal in first trimester 9 weeks gestation of Expected: 05/10/2022, Expires: 07/10/[address] [facility] Work Phone: Comment on above: Expected: 05/10/2022 , Expires: 07/10/2022 Start: 05-10-2022 End: 07-10-2022 TYPE + SCREEN TYPE + SCREEN Blood Bank Routine Encounter for supervision of other normal in first trimester 9 weeks gestation of Expected: 05/10/2022, Expires: 07/10/[address] [facility] Work Phone: Comment on above: Expected: 05/10/2022 , Expires: 07/10/2022 Start: 01-31-2022 Influenza vaccination INFLUENZA (#1) [facility] Start: 11-30-2021 POV, Provider: Alia Donahue, Status: Pen, Time: 3:00 PM POV, Provider: Alia Donahue, Status: Pen, Time: 3:00 PM [facility] Work Phone: Start: 11-30-2021 VIRFUVHOME, Provider : Alia Donahue, Status: Pen, Time: 3:00 PM VIRFUVHOME, Provider: Alia Donahue, Status: Pen, Time: 3:00 PM [facility] Work Phone: Start: 11-28-2021 NPV, Provider: Ramona Morse, Status: Pen, Time: 7:40 AM NPV, Provider: Ramona Morse, Status: Pen, Time: 7:40 AM [facility] Work Phone: Start: 11-06-2021 SURGGRH, Provider: Alfredo Bowden, Status: Pen, Time: 7:30 AM SURGGRH, Provider: Alfredo Bowden, Status: Pen, Time: 7:30 AM [facility] Work Phone: Start: 07-27-2021 NPV, Provider: Alfredo Bowden, Status: Pen, Time: 8:40 AM NPV, Provider: Alfredo Bowden, Status: Pen, Time: 8:[address] [facility] Work Phone: Start: 06-02-2021 DEPRESSION ASSESSMENT DEPRESSION ASS ESSMENT [facility] Start: 03-07-2021 FUV, Provider: Frida Lieberman, Status: Pen, Time: 3:20 PM FUV, Provider: Frida Lieberman, Status: Pen, Time: 3:20 PM [facility] Work Phone: Start: 10-06-2020 PAP TESTING PAP TESTING [facility] Start: 2019 HPV Vaccine (1 - 3-d ose SCDM series) HPV Vaccine (1 - 3-dose SCDM series) [facility] Start: 2014 DTaP/Tdap/Td Vaccine s (1 - Tdap) DTaP/Tdap/Td Vaccines (1 - Tdap) [facility] Start: 2013 Screening for malign ant neoplasm of cervix HPV/Cotest [facility] Start: 2011 Hepatitis B Vaccine (1 of 3 - 19+ 3-dose series) Hepatitis B Vaccine (1 of 3 - 19+ 3-dose series) [facility] Start: 2011 Hepatitis B Vaccines (1 of 3 - 19+ 3-dose series) Hepatitis B Vaccines (1 of 3 - 19+ 3-dose series) [facility] Start: 2011 Urine microalbumin profile DTAP,TDAP,TD (1 - Tdap) [facility] Start: 2010 Anxiety Screening Anxiety Screening [facility] Start: 2010 [facility]: 2010 HEPATITIS C SCREENING HEPATITIS C [facility] Start: 2010 Hepatitis C screening Hepatitis C [facility] Start: 2010 HIV SCREENING HIV SCREENING [facility] Start: 2005 Varicella vaccination Varicell a Vaccines (1 of 2 - 13+ 2-dose series) [facility] Start: 1993 MMR Vaccines (1 of 1 - Standard series) MMR Vaccines (1 of 1 - Standard series) [facility] Start: 1992 COVID-19 VACCINE (#1) COVID-19 VACCI NE (#1) [facility] Start: 1992 HEPATITIS B (1 of 3 - 3-dose series) HEPATITIS B (1 of 3 - 3-dose series) [facility] Start: 1992 Yearly Adult Physical Yearly Adult P [facility] Bacteria identified in Urine by Culture Urine Culture [facility] Bacteria identified in Urine by Culture BACTERIAL CULTURE, URINE Microbiology Routine with uncertain dates, antepartum 8 weeks gestation of Screen for STD (sexually transmitted disease) 07/20/2024 10:17 AM EST [facility] Chlamydia trachomatis+Neisseria gonorrhoeae DNA [Presence] in Unspecified specimen by TRISH with probe detection GONORRHEA/CHLAMYDIA NAAT Lab Routine with uncertain dates, antepartum 8 weeks gestation of Screen for STD (sexually transmitted disease) 07/20/2024 10:17 AM [facility] PAP FLUID CERVICAL SCREENING PAP FLUID CERVICAL SCREENING Lab Routine Encounter for screening for malignant neoplasm of cervix Ordered: 04/01/[address] [facility] Work Phone: Comment on above: Ordered: 04/01/2022 PAP TEST PAP TEST Lab Rou binta Screening for cervical cancer 07/20/2024 10:17 AM [facility] Patient Education ED Diet Vomiti ng Diarrhea ED Vomiting and Diarrhea ... [facility] Work Phone: Patient referral [facility] Work Phone: ROUTINE, GR OUP B STREP PCR ROUTINE, GROUP B STREP PCR Microbiology Routine 36 weeks gestation of 11/19/2022 8:[address] [facility] Work Phone: ROUTINE, GR OUP B STREPTOCOCCUS BY PCR ROUTINE, GROUP B STREPTOCOCCUS BY PCR Microbiology Routine 36 weeks gestation of (HCC) Encounter for supervision of other normal in third trimester (HCC) 02/02/2025 9:[address] [facility] Work Phone: TRICHOMONAS VAGINALI S NAAT TRICHOMONAS VAGINALIS NAAT Lab Routine Screen for STD (sexually transmitted disease) 07/20/2024 10:17 AM [facility] Immunizations Immunization Date Immunization Notes Care Provider Fa sarah 09-20-2022 tetanus toxoid, redu lisa diphtheria toxoid, and acellular pertussis vaccine, adsorbed Brijesh Biswas MD Work Phone: [facility] 03-28-2020 tetanus toxoid, redu lisa diphtheria toxoid, and acellular pertussis vaccine, adsorbed Ana Boateng Work Phone: [facility] Payers Date Payer Category Payer Self-pay [id number] 2023 Managed Care (Private) [facility] [id number] 2021 Medicaid [id number] 2021 Private Health Insurance [id number] 2017 Private Health Insurance 1990 Unknown [id number] 1990 Unknown [id number] 1990 Unknown [id number] Private Health Insurance [facility] [id number] Unknown [facility] Unknown MAI/Aide WILLIS [id number] Unknown [id number] Social History Date Type Detail Facility Start: 06-11-2020 End: 04-01-2022 Denies Ever Smoked [facility] Start: 11-30-2019 End: 10-03-2022 Non-smoker Non-smoker [facility] Start: 04-01-2022 End: 03-29-2024 Tobacco use and exposure Smokeless tobacco non-user [facility] Start: 04-01-2022 End: 02-16-2025 Alcohol intake Lifetime non-drinker (finding) [facility] Start: 11-30-2019 History SDOH Alcohol Frequency 1 [facility] Start: 1990 Sex Assigned At Not on file [facility] Start: 03-22-2022 End: 03-29-2024 Exposure to SARS-CoV-2 (event) Not sure [facility] Start: 05-02-2022 Education 17 [facility] Start: 03-20-2022 [facility] Start: 08-28-2022 Tobacco smoking stat [facility] Unknown if ever smoked [facility] Start: 1990 Sex Assigned At Female W [facility] Start: 11-30-2019 End: 10-03-2022 Alcohol Use Disorder Identification Test - Consumption [AUDIT-C] [facility] How often to you hav e a drink containing alcohol? Never [facility] Start: 08-21-2017 Average Number of Drinks Not on file [facility] Work Phone: Start: 03-29-2024 Alcoholic beverage intake Current drinker of alcohol (finding) [facility] Work Phone: Start: 07-19-2024 Gender identity Identifies as female gender (finding) [facility] Start: 07-19-2024 Sexual orientation Heterosexua l (finding) [facility] Do you belong to any clubs or organizations such as religion groups, unions, fraternal or athletic groups, or school groups? No [facility] Are you now , , , , never or living with a partner? [facility] How often to you hav e a drink containing alcohol? Monthly or less [facility] How many standard dr inks containing alcohol do you have on a typical day? 1 or 2 [facility] Do you feel stress - tense, restless, nervous, or anxious, or unable to sleep at night because your mind is troubled all the time - these days [OSQ] Not at all [facility] (I/We) worried marcelino er (my/our) food would run out before (I/we) got money to buy more. Never true [facility] NEGATED: Highlighted rowStart: AIXA History of tobacco use Passive smoker [facility] Work Phone: Goals Date Patient Goal Desired Activity /State Personal health goal Personal health goal Functional Status Date Assessment Result Facility 08-10-2024 Total score [AUDIT-C] 1 08/11/19 7:07 PM EDT User, Mycrosannat [facility] 08-10-2024 Within the last year , have you been humiliated or emotionally abused in other ways by your partner or ex-partner? No 08/10/2024 7:07 PM EDT User, Mychart No [facility] 08-10-2024 Within the last year , have you been afraid of your partner or ex-partner? No 08/10/2024 7:07 PM EDT [email or web address] 08-10-2024 Within the last year , have you been raped or forced to have any kind of sexual activity by your partner or ex-partner? No 08/10/2024 7:07 PM EDT User, Mychart No [facility] 08-10-2024 Within the last year , have you been kicked, hit, slapped, or otherwise physically hurt by your partner or ex-partner? No 08/10/2024 7:07 PM EDT User, Mychart No [facility] 08-10-2024 How often to you hav e a drink containing alcohol? Monthly or less 08/10/2024 7:07 PM EDT User, [email or web address] Monthly or less [facility] 08-10-[address] inks containing alcohol do you have on a typical day? 1 or 2 08/10/2024 7:07 PM EDT User, Mycrosannat 1 or 2 [facility] 08-10-2024 How often do you hav e 6 or more drinks on 1 occasion? Never 08/10/2024 7:07 PM EDT User, [email or web address] Never [facility] 12-01-2019 Are you deaf, or do you have serious difficulty hearing No 12/01/2019 5:12 AM EDT Cindi Kumar, GENARO No [facility] 12-01-2019 Are you blind, or do you have serious difficulty seeing, even when wearing glasses No 12/01/2019 5:12 AM EDT Cindi Kumar RN No [facility] 12-01-2019 Do you have serious difficulty walking or climbing stairs No 12/01/2019 5:12 AM EDT Cindi Kumar RN No [facility] 12-01-2019 Do you have difficul ty dressing or bathing No 12/01/2019 5:12 AM EDT Cindi Kumar RN No [facility] 12-01-2019 Because of a physica l, mental, or emotional condition, do you have difficulty doing errands alone such as visiting a physician's office or shopping No 12/01/2019 5:12 AM EDT Cindi Kumar RN No [facility] Mental Status Date Assessment Result Facility 12-01-2019 Because of a physica l, mental, or emotional condition, do you have serious difficulty concentrating, remembering, or making decisions No 12/01/2019 5:12 AM EDT Cindi Kumar RN No [facility] Clinical Notes 12-01-2019 to 02-16-2025 Quick Notes [...] URINE OB DIP B/O Ana Hilario MD [facility] 02-16-2025 Miscellaneous Notes Formattin g of this [...] Ana Hilario MD documented in this encounter [facility] 02-16-2025 Instructions Cecelia Pardo MA - 02/16/2025 8:18 AM EDT SEQUENTIAL SCREENINGS The [facility] offers sequential screenings for women who are [...] It will require an appointment with our entry level installation technician. This is not an ultrasound performed [...] the above symptoms, contact our office at [phone] and ask to speak with a nurse. After hours, you can call doctors registry at [phone] OR call [facility] at [phone] and ask to have the doctor chlorination operator paged. If you consider this an emergency, dial 7-2-6 or go to your nearest emergency department. NEED HELP? Are you dealing with a violent or abusive relationship? Are you a victim of rape or sexual assult? Call [facility] ([place]) 24 hour Crisis Hotline: 337.737.1614 or 074-609-6736. MANUAL Your Guide to a Healthy manual is now on-line. Visit [facility] [email or web address] to download your free copy documented in this encounter [facility] 02-10-2025 Note HNO ID: [id number] Author: TATE GARNER, ? Service: ? Author Type: Patient Marklogic Developer Type: Progress Notes Filed: 02/10/2025 07:09 Note Text: POPULATION HEALTH NAVIGATION OUTREACH Action/FYI No outreach done added supervisor film processing via note Reason for Outreach Medicaid OB/Peds Care Gaps due: N/A Patient Contacted: Unable or unnecessary to reach patient: [place] supervisor film processing added Navigation Signature: Tate Garner Population Health Navigator February 10, 2025 7:08 AM [facility] 02-10-2025 History of Presen t illness Narrative POPULATION HEALTH NAVIGATION OUTREACH Action/FYI No outreach done added supervisor film processing via note Reason for Outreach Medicaid OB/Peds Care Gaps due: N/A Patient Contacted: Unable or unnecessary to reach patient: supervisor film processing added Navigation Signature: Tate Garner Population Health Navigator February 10, 2025 7:08 AM documented in this encounter [facility] 02-10-2025 Note Patient Outreach (NE TNAV) RAMONA WAHL ([id number]) 1990 F Date Time Provider Department 02/10/25 TATE GARNER NETCEFERINOV During your visit today, we recorded the following information about you: Tate Garner 02/10/2025 7:09 AM Signed POPULATION HEALTH NAVIGATION OUTREACH / No outreach done added supervisor film processing via note Reason for Outreach Medicaid OB/Peds Care Gaps due: N/A Patient Contacted: Unable or unnecessary to reach patient: [place] supervisor film processing added Navigation Signature: Tate Garner Population mmCHANNEL Navigator February 10, 2025 7:08 AM Allergies [...] Encounter Status:Closed by TATE GARNER on 02/10/25 [facility] 02-09-2025 Progress note Formatting of t his [...] or sooner if needed Yumiko Andersen APRN.CNM [facility] 02-09-2025 Miscellaneous Notes Formattin g of this [...] Yumiko Andersen APRN.CNM documented in this encounter [facility] 02-09-2025 Instructions Kaylie Benz LPN - 02/09/2025 10:12 AM EDT SEQUENTIAL SCREENINGS The [facility] offers sequential screenings for women who are [...] It will require an appointment with our entry level installation technician. This is not an ultrasound performed [...] the above symptoms, contact our office at [phone] and ask to speak with a nurse. After hours, you can call doctors registry at [phone] OR call [facility] at [phone] and ask to have the doctor chlorination operator paged. If you consider this an emergency, dial 9-1-8 or go to your nearest emergency department. NEED HELP? Are you dealing with a violent or abusive relationship? Are you a victim of rape or sexual assult? Call [facility] ([place]) 24 hour Crisis Hotline: 155.579.4267 or 028-614-1042. MANUAL Your Guide to a Healthy manual is now on-line. Visit [facility] [email or web address] to download your free copy documented in this encounter [facility] 02-02-2025 Progress note Formatting of t his [...] was discussed with the patient or authorized sales service representative. The patient or authorized sales service representative has agreed to proceed with the sensitive examination. ASSESSMENT/PLAN: 1. Encounter for supervision of other normal in third trimester -Continue PNV 2. 36 weeks gestation of 3. History of hypothyroidism - THYROID STIMULATING HORMONE - T4 FREE/FREE THYROXINE PTL precautions reviewed RTO in one week Ethel Ruiz APRN.CNM [facility] 02-02-2025 Miscellaneous Notes Formattin g of this [...] was discussed with the patient or authorized sales service representative. The patient or authorized sales service representative has agreed to proceed with the sensitive examination. ASSESSMENT/PLAN: 1. Encounter for supervision of other normal in third trimester -Continue PNV 2. 36 weeks gestation of 3. History of hypothyroidism - THYROID STIMULATING HORMONE - T4 FREE/FREE THYROXINE PTL precautions reviewed RTO in one week Ethel Ruiz APRN.CNM documented in this encounter [facility] 02-02-2025 Instructions Ethel Ruiz APRN.MICHELLE - 02/02/2025 [...] an easy pie crust in the food crops farm hand. Add soaked dates to homemade nut butter for a sweet treat. Add dates to chino homemade salad dressing. Add dates during easily with these yummy (paleo friendly) bars made from dates. What Is Red Raspberry [place] Tea? Red raspberry leaf tea comes from [...] , and too. How Much Red Raspberry [place] Tea to Drink? With your doctor or director investment banking s approval, start with 1 cup of [...] because of uterine cramping. Is Red Raspberry [place] Tea the Same as Raspberry [place] Tea? How About Plain Old Raspberry Tea? Sometimes. You really need to look at the ingredients to be sure. Note that there is no difference between red raspberry leaf and raspberry leaf. Polyplus-transfection or Sellaround Raspberry [place] Tea are two good brands. The red [...] outlined in this article. The [employer] www.StarNet [employer] I named this 'circuit' after my friend [...] sideways, 2 at a time, (have a offset press operator apprentice downstairs of you!), take a walk outside [...] the pelvis. Laurence Cesar: Circuit Creator - www.Integral Wave Technologiesbirthcollective. [employer] Jacqui Kirk, CLEMENT, BDT (NAHED), LCCE, FACCE: Supporting Content - www.Evolution Mobile Platform Jenny Lni: Photography - www.[email or web address] Kylah Vidales CD/CDT (JETT): Print and Wire Mesh Filter Fabricator - www.EzLike Circuit Masterminds The [employer] Circuit www.StarNet Interactive SIGNS AND SYMPTOMS OF LABOR 1. Contractions every 10 minutes or more often 2. Clear, pink, or brownish fluid (water) leaking from vagina 3. Feeling that baby is pushing down, pressure 4. Low, dull backache 5. Cramps that feel like a period 6. Cramps with or without diarrhea If you notice any of the above symptoms, contact our office at [phone] and ask to speak with a nurse. After hours, you can call doctors registry at [phone] OR call [facility] at [phone] and ask to have the doctor chlorination operator paged. If you consider this an emergency, dial or go to your nearest emergency department. NEED HELP? Are you dealing with a violent or abusive relationship? Are you a victim of rape or sexual assult? Call [facility] ([place]) 24 hour Crisis Hotline: 884.789.9952 or 128-243-2441. MANUAL Your Guide to a Healthy manual is now on-line. Visit [facility] [email or web address] gnancyGuide to download your free copy documented in this encounter [facility] 01-19-2025 Progress note Formatting of t his [...] nontender ASSESSMENT/PLAN: 1. 34 weeks gestation of ([facility]) - ICD9: V22.2, ICD10: Z3A.34 (primary diagnosis) - URINE OB DIP B/O 2. Encounter for supervision of other normal in third trimester ([facility]) - ICD9: V22.1, ICD10: Z34.83 - URINE OB DIP B/O 3. History of hypothyroidism - ICD9: V12.29, ICD10: Z86.39 TSH 2.8 - URINE OB DIP B/O Ana Hilario MD [facility] 01-19-2025 Miscellaneous Notes Formattin g of this [...] nontender ASSESSMENT/PLAN: 1. 34 weeks gestation of ([facility]) - ICD9: V22.2, ICD10: Z3A.34 (primary diagnosis) - URINE OB DIP B/O 2. Encounter for supervision of other normal in third trimester ([facility]) - ICD9: V22.1, ICD10: Z34.83 - URINE OB DIP B/O 3. History of hypothyroidism - ICD9: V12.29, ICD10: Z86.39 TSH 2.8 - URINE OB DIP B/O Ana Hilario MD documented in this encounter [facility] 01-19-2025 Instructions Seema Rose MA - 01/19/2025 10:15 AM EDT SEQUENTIAL SCREENINGS The [facility] offers sequential screenings for women who are [...] It will require an appointment with our entry level installation technician. This is not an ultrasound performed [...] the above symptoms, contact our office at [phone] and ask to speak with a nurse. After hours, you can call doctors registry at [phone] OR call [facility] at [phone] and ask to have the doctor chlorination operator paged. If you consider this an emergency, dial 7--9 or go to your nearest emergency department. NEED HELP? Are you dealing with a violent or abusive relationship? Are you a victim of rape or sexual assult? Call [facility] ([place]) 24 hour Crisis Hotline: 706.232.4118 or 279-361-5226. MANUAL Your Guide to a Healthy manual is now on-line. Visit [facility] [email or web address] [email or web address] to download your free copy documented in this encounter [facility] 12-22-2024 Progress note Formatting of t his note might be different from the original. S: Ramona Wahl is a 34 year old female who presents at 30 weeks gestation for a routine visit. Positive movements. Increased bilateral hip pain. Reports this occurs during . Has tried cardiac care unit nurse in the past without relief. Discussed massage therapy and /or finding new chiropractor. Denies headache, visual changes, chest pain, shortness of breath, vaginal bleeding, leakage of fluid, or dysuria. O: See flow sheet Gen: No apparent distress Abd: Gravid, non tender ASSESSMENT/PLAN: 1. 30 weeks gestation of 2. Encounter for supervision of other normal in third trimester 3. Bilateral hip pain Massage therapy child care centre director Yoga/stretching Continue vitamin daily Opted out of ASA RTO 2 weeks or sooner if needed Yumiko Andersen APRN.CNM [facility] 12-22-2024 Miscellaneous Notes Formattin g of this note might be different from the original. S: Ramona Wahl is a 34 year old female who presents at 30 weeks gestation for a routine visit. Positive movements. Increased bilateral hip pain. Reports this occurs during . Has tried cardiac care unit nurse in the past without relief. Discussed massage therapy and /or finding new chiropractor. Denies headache, visual changes, chest pain, shortness of breath, vaginal bleeding, leakage of fluid, or dysuria. O: See flow sheet Gen: No apparent distress Abd: Gravid, non tender ASSESSMENT/PLAN: 1. 30 weeks gestation of 2. Encounter for supervision of other normal in third trimester 3. Bilateral hip pain Massage therapy child care centre director Yoga/stretching Continue vitamin daily Opted out of ASA RTO 2 weeks or sooner if needed Yumiko Andersen APRN.CNM documented in this encounter [facility] 12-22-2024 Instructions Seema Rose MA - 12/22/2024 8:02 AM EDT SEQUENTIAL SCREENINGS The [facility] offers sequential screenings for women who are [...] It will require an appointment with our entry level installation technician. This is not an ultrasound performed [...] the above symptoms, contact our office at [phone] and ask to speak with a nurse. After hours, you can call doctors registry at [phone] OR call [facility] at [phone] and ask to have the doctor chlorination operator paged. If you consider this an emergency, dial 9-1-4 or go to your nearest emergency department. NEED HELP? Are you dealing with a violent or abusive relationship? Are you a victim of rape or sexual assult? Call [facility] ([place]) 24 hour Crisis Hotline: 989.267.5233 or 487-855-2591. MANUAL Your Guide to a Healthy manual is now on-line. Visit [email or web address] [email or web address] to download your free copy documented in this encounter [facility] 12-08-2024 Progress note Formatting of t his [...] supervision of other normal in second trimester ([facility]) - ICD9: V22.1, ICD10: Z34.82 (primary diagnosis) - Continue PNV - Considering removal of tubes. Risks and benefits reviewed. 2. 28 weeks gestation of ([facility]) - ICD9: V22.2, ICD10: Z3A.28 - 1 hour GCT, CBC, and RPR today - Rh positive - Declines TDAP - LARC form reviewed and signed. Declines. - Depression screen negative - Opioid screen negative - plan form discussed and given to Ramona - Reviewed how to pre register through [facility] 3. History of hypothyroidism - ICD9: V12.29, ICD10: Z86.39 - TSH/T4 today PTL precautions and kick counts reviewed. RTO in 2 weeks or sooner as needed. Jenny Huitron APRN.STATISTICAL MACHINE MECHANIC T [facility] 12-08-2024 Miscellaneous Notes Formattin g of this [...] supervision of other normal in second trimester ([facility]) - ICD9: V22.1, ICD10: Z34.82 (primary diagnosis) - Continue PNV - Considering removal of tubes. Risks and benefits reviewed. 2. 28 weeks gestation of ([facility]) - ICD9: V22.2, ICD10: Z3A.28 - 1 hour GCT, CBC, and RPR today - Rh positive - Declines TDAP - LARC form reviewed and signed. Declines. - Depression screen negative - Opioid screen negative - plan form discussed and given to Ramona - Reviewed how to pre register through [facility] 3. History of hypothyroidism - ICD9: V12.29, ICD10: Z86.39 - TSH/T4 today PTL precautions and kick counts reviewed. RTO in 2 weeks or sooner as needed. Jenny Huitron APRN.CNP documented in this encounter [facility] 12-08-2024 Instructions Jenny Huitron APRN.CNP - 12/08/2024 8:40 AM EDT Please call [phone] to pre-register for your and labor and delivery stay at [facility]. They will want to know your due date, insurance and contact information. This is important to do before you go into labor to help with the efficiency of the admission process when you arrive. Thank you so much! SEQUENTIAL SCREENINGS The [facility] offers sequential screenings for women who are [...] It will require an appointment with our entry level installation technician. This is not an ultrasound performed [...] the above symptoms, contact our office at [phone] and ask to speak with a nurse. After hours, you can call doctors registry at [phone] OR call [facility] at [phone] and ask to have the doctor chlorination operator paged. If you consider this an emergency, dial 01-31- or go to your nearest emergency department. NEED HELP? Are you dealing with a violent or abusive relationship? Are you a victim of rape or sexual assult? Call [facility] ([place]) 24 hour Crisis Hotline: 881.768.9056 or 132-132-8284. MANUAL Your Guide to a Healthy manual is now on-line. Visit [facility] [email or web address] [email or web address] to download your free copy documented in this encounter [facility] 11-30-2024 Telephone encount er Note [facility] paperwork received 11/30/2024. Paper work is in providers mailbox waiting to be signed 11/30/2024. [facility] paper work signed and faxed. 12/06/2024 [facility] 11-30-2024 Miscellaneous Notes Formattin g of this note might be different from the original. [facility] paperwork received 11/30/2024. Paper work is in providers mailbox waiting to be signed 11/30/2024. [facility] paper work signed and faxed. 12/06/2024 documented in this encounter [facility] 11-10-2024 Note HNO ID: [id number] Author: JENNY HUITRON APRN.STATISTICAL MACHINE MECHANIC Service: ? Author Type: Nurse Practitioner Type: [...] supervision of other normal in second trimester ([facility]) - ICD9: V22.1, ICD10: Z34.82 (primary diagnosis) - Continue PNV 2. 24 weeks gestation of ([facility]) - ICD9: V22.2, ICD10: Z3A.24 - GTT, CBC, RPR next visit 3. History of hypothyroidism - ICD9: V12.29, ICD10: Z86.39 - TSH/T4 ordered for next visit - Not on any medication PTL precautions reviewed. RTO in 4 weeks or sooner as needed. Jenny Huitron APRN.STATISTICAL MACHINE MECHANIC [facility] 11-10-2024 History of Presen t illness Narrative [...] supervision of other normal in second trimester ([facility]) - ICD9: V22.1, ICD10: Z34.82 (primary diagnosis) - Continue PNV 2. 24 weeks gestation of ([facility]) - ICD9: V22.2, ICD10: Z3A.24 - GTT, CBC, RPR next visit 3. History of hypothyroidism - ICD9: V12.29, ICD10: Z86.39 - TSH/T4 ordered for next visit - Not on any medication PTL precautions reviewed. RTO in 4 weeks or sooner as needed. Jenny Huitron APRN.STATISTICAL MACHINE MECHANIC documented in this encounter [facility] 11-10-2024 Instructions Manuela Taylor MA - 11/10/2024 8:45 AM EDT SEQUENTIAL SCREENINGS The [facility] offers sequential screenings for women who are [...] It will require an appointment with our entry level installation technician. This is not an ultrasound performed [...] the above symptoms, contact our office at [phone] and ask to speak with a nurse. After hours, you can call doctors registry at [phone] OR call [facility] at [phone] and ask to have the doctor chlorination operator paged. If you consider this an emergency, dial 9-1-5 or go to your nearest emergency department. NEED HELP? Are you dealing with a violent or abusive relationship? Are you a victim of rape or sexual assult? Call [facility] ([place]) 24 hour Crisis Hotline: 789.640.9436 or 664-900-5648. MANUAL Your Guide to a Healthy manual is now on-line. Visit [facility] [email or web address] [email or web address] to download your free copy documented in this encounter [facility] 10-13-2024 Note HNO ID: [id number] Author: ETHEL RUIZ APRN.CNM Service: ? Author Type: Vehicle Maintenance Supervisor Type: Progress Notes Filed: 10/13/2024 12:17 Note [...] RTO in 4 weeks Ethel Ruiz APRN.CNM [facility] 10-13-2024 History of Presen t illness Narrative [...] Ethel Ruiz APRN.CNM documented in this encounter [facility] 10-13-2024 Instructions Joe Farooq MA - 10/13/2024 11:13 AM EDT SEQUENTIAL SCREENINGS The [facility] offers sequential screenings for women who are [...] It will require an appointment with our entry level installation technician. This is not an ultrasound performed [...] the above symptoms, contact our office at [phone] and ask to speak with a nurse. After hours, you can call doctors registry at [phone] OR call [facility] at [phone] and ask to have the doctor chlorination operator paged. If you consider this an emergency, dial 9-1-1 or go to your nearest emergency department. NEED HELP? Are you dealing with a violent or abusive relationship? Are you a victim of rape or sexual assult? Call [facility] ([place]) 24 hour Crisis Hotline: 988.749.7102 or 825-687-2909. MANUAL Your Guide to a Healthy manual is now on-line. Visit [email or web address] [email or web address] to download your free copy documented in this encounter [facility] 09-28-2024 Telephone encount er Note Faxed. Akanksha Fonseca RN [facility] 09-28-2024 Miscellaneous Notes Formattin g of this note might be different from the original. Faxed. Akanksha Fonseca, RN Breast pump request received from [employer]. Order to provider to sign. Fanny Virk RN documented in this encounter [facility] 09-27-2024 Telephone encount er Note Breast pump request received from [employer]. Order to provider to sign. Fanny Virk RN [facility] 09-20-2024 Evaluation note Diagnosis Encounter for supervision of normal intrauterine in multigravida, antepartum (HCC)- Primary * Assessment & Plan Note - Karoline Bautista MD - 09/20/2024 8:50 AM EDT Associated Problem(s): Encounter for supervision of normal intrauterine in multigravida, antepartum (HCC) documented in this encounter [facility]04-21-2025 Progress note* Quick Notes - Karoline Bautista [...] prn anatomy US scheduled Karoline John, M.D. [facility]04-21-2025 Miscellaneous Notes* Quick Notes - Kaorline Bautista MD - 09/20/2024 8:48 AM EDT [...] scheduled Karoline Bautista M.D. documented in this encounter[facility] Progress note* Result Encounter Note - Karoline Bautista MD - 08/17/2024 2:50 PM EDT Anatomy ultrasound reviewed. No abnormalities identified. Follow up as clinically indicated. Pleaseplace copy in ob chart. Karoline Bautista MD [facility] Work Phone: 1(924) 218-142803-18-2025 Miscellaneous Notes* Result Encounter Note - Karoline Bautista MD - 08/17/2024 2:50 PM EDT Anatomy ultrasound reviewed. No abnormalities identified. Follow up as clinically indicated. Pleaseplace copy in ob chart. Karoline Bautista MD [facility] Progress note* Quick Notes - Ethel Ruiz [...] RTO in 4 weeks Ethel Ruiz APRN.CNM [facility]03-18-2025 Miscellaneous Notes* Quick Notes - Ethel Ruiz [...] weeks Ethel Ruiz APRN.CNM [facility] in [facility] encounter[facility] Instructions* Patient Instructions* Joe Farooq MA - 08/17/2024 2:03 PM EDT SEQUENTIAL SCREENINGS The [facility] offers sequential screenings for women who are [...] testing. It will require an appointment withour entry level installation technician. This is not an ultrasound performed [...] the above symptoms, contact our office at [phone] and ask to speak with anurse. After hours, you can call doctors registry at [phone] OR call [facility] at [phone] ask to have the doctor chlorination operator paged. If you consider this an emergency, dial 7-2-0 or go to your nearest emergency department. NEED HELP? Are you dealing with a violent or abusive relationship? Are you a victim of rape or sexual assult? Call [facility] ([place]) 24 hour Crisis Hotline: 176.488.2430 or 475-556-6085. MANUAL Your Guide to a Healthy manual is now on-line. Visit [facility] [email or web address] to download your free copy documented in [facility] History of Present illness Narrative* Jeannie Taylor APRN.STATISTICAL MACHINE MECHANIC - 08/17/2024 10:20 AM EDT 08/17/2024 Patient [...] No history of dysuria, frequency or incontinence STRATEGIES ANALYST: Negative for abnormal vaginal bleeding, abnormal vaginal [...] agreeable to treatment plan. documented in this encounter[facility]-2025 NoteHNO ID: [id number] Author: JEANNIE TAYLOR APRN.CNP Service: ? Author [...] No history of dysuria, frequency or incontinence STRATEGIES ANALYST: Negative for abnormal vaginal bleeding, abnormal vaginal [...] annual exam in one year Jeannie RicelogFRED stewart.STATISTICAL MACHINE MECHANIC Prescription instructions reviewed with patient as applicable. Patient advised if symptoms do not improve or if symptoms worsen sooner, to contact their primary care physician. Potential red flag symptoms discussed with the patient. Reviewed appropriate action plan to take if red flag symptoms occur. Patient agreeable to treatment plan.[facility]02-17-2025 NoteHNO ID: [id number] Author: MARIELLE JIMÉNEZ APRN.STATISTICAL MACHINE MECHANIC Service: ? Author Type: Nurse Practitioner Type: Progress Notes Filed: 07/20/2024 10:21 Note Text: Patient declined wet suit gluer. INITIAL OB ASSESSMENT HPI: Ramona is a [...] Negative for: Swelling, Pain, (more content not included)...[facility]02-17-2025 History of Present illness Narrative* Marielle Jiménez APRN.STATISTICAL MACHINE MECHANIC - 07/19/2024 2:33 PM EST Patient declined wet suit gluer. INITIAL OB ASSESSMENT HPI: Ramona is a [...] discussed with the Patient or Patient's Authorized Food And Beverage Checker. As applicable, any other physician, advance practice provider, medical student, or other health professional student that will be observing or involved in the sensitive examination for educational or training purposes was discussed with the Patient or Authorized Food And Beverage Checker. The Patient or Authorized Food And Beverage Checker has agreed to proceed with the sensitive [...] activity, CRL consistent with LMP. Marielle Jiménez, BOARD MEMBER.STATISTICAL MACHINE MECHANIC ASSESSMENT: 34 year old at 8w5d wks gestational age PLAN: 1) Patient oriented to practice. Patient given new OB orientation folder. Discussed nutrition, folic acid supplementation, dietary guidelines, exercise, smoking, alcohol, caffeine, and drug use. Discussed gestational weight gain guidelines. Discussed routine OB labs including STD/HIV. Discussed how to access Your guide to a health and the [employer] [place] [employer]. Reviewed midwifery and drier helper services that are available. 2) Screening: Hemoglobin [...] prn. Marielle Jiménez APRN.BECCA documented in this encounter[facility] Instructions* Patient Instructions* Kaylie Benz LPN - 07/19/2024 2:33 PM EST Please select the following link to access the [facility] Your Guide to a Healthy . [email or web address] Please select the following link to access the [facility] Your Guide to a Healthy . [email or web address] documented in this encounter[facility] Instructions* Patient Instructions* Ethel Ruiz APRN.CNM - 07/12/2024 10:11 AM EST Get labs drawn at [facility] visit MORNING SICKNESS IN by Taryn Riley M.D. for [employer] As you may already know, morning sickness can often be more appropriately called evening sickness or xejue-ecgfnu-oa-the-day sickness. While there are the rolando few, [...] medication, Doxylamine, is currently marketed as an dvgc-ijf-uanvrtm sleeping pill. Ask your practitioner if creating a vitamin B6/Doxylaminecombination with lsjs-qdg-trjlwzn medications would be safe for you. Prescription [...] IV packs 1-2 times a day Body [place] Reglan for nausea Pepcid daily Stop PNV [...] fact sheeton Nausea and Vomiting in at https://mothertobaby.org/fact-sheets/wiusaa-qanguamd-tpmgomnkq-nvp/pdf/. Can metoclopramide increase the chance for a [...] trouble with milk production, working with a professional employer consultant may be the most helpful in [...] fact sheet on Paternal Exposures at https:/ /mothertobaby.org/fact-sheets/ijkooncm-vvqoezxvb-swvadnhpn/pdf/. documented in this encounterSum[facility]-2025 NoteHNO ID: [id number] Author: ETHEL RUIZ APRN.CNM Service: ? Author Type: Vehicle Maintenance Supervisor Type: Progress Notes Filed: 07/12/2024 10:26 Note Text: DISTANCE HEALTH VISIT This Team Access Model visit is a virtual encounter. It required patient-provider interaction for the medical decision making as documented below. I have communicated my name and active licensure. The patient's identity and physical location were verified at the time of this visit. Either the patient or their legal sales service representative has been informed of the risks [...] with more than 50% of the total gimp-xk-xfxe time of the visit in counseling / coordination of care.[facility]02-10-2025 History of Present illness Narrative* Ethel Ruiz [...] visit. Either the patient or their legal sales service representative has been informed of the risks [...] with more than 50% of the total utlg-ao-jsei time of the visit in counseling / coordination of care. documented in this encounterSum[facility] History of Present illness Narrative* Castro Heart [...] lavage rc Messer prn documented [facility]AC[facility] Work Phone: 1(229) 543-646709-13-2024 History of Present illness Narrative* Phillip Castro MD - 02/13/2024 8:19 AM EDT Patient declined wet suit gluer. The sensitive examination was discussed with the Patient or Patient's Authorized Food And Beverage Checker. Asapplicable, any other physician, advance practice provider, medical student, or other health professional student that will be observing or involved in the sensitive examination for educational or training purposes was discussed with the Patient or Authorized Food And Beverage Checker. 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 As applicable, any other physician, advance practice provider, medical student, or other health professional student that will be observing or involved in the sensitive examination for educational or training purposes was discussed with the Patient or Authorized Food And Beverage Checker. The Patient or Authorized Food And Beverage Checker has agreed to proceed with the sensitive [...] external genitalia normal, normal Bartholin's glands, urethra, Kingsland's glands, no vulvar lesions, no cervical lesions, [...] needed Phillip Castro DO documented in this encounterSumma Health [facility]08-03-2023 History of Present illness Narrative* Phillip Castro [...] issues Sleep: no sleep concerns, feels rested Sexton since delivery: Not resumed Emotional support: Yes [...] needed Phillip Castro DO documented in this encounterSumma Health [facility]07-17-2023 History of Present illness Narrative* Crystal Baxter [...] SIGNATURE: Crystal Beasley MD documented in this encounterSumma Health Barberton Campus07-17-2023 Miscellaneous Notes* Quick Notes - Crystal Baxter MD - 12/16/2022 3:24 PM EDT DM- Pt doing well today. Denies Vaginal Bleeding, Leaking fluid, or contractions. Pt reports good movement. IOL was canceled today- rescheduled for 41.1 weeks- STEPHANIE today on bedside ultrasound 14cm, NST today reactive cat 1. Pt declines membrane sweep today. Crystal Beasley MD documented in this encounterSumma Health Barberton Campus07-17-2023 Instructions* Patient Instructions* Haley Junior Ma - 12/16/2022 2:34 PM EDT SEQUENTIAL SCREENINGS The [facility] offers sequential screenings for women who are [...] testing. It will require an appointment withour entry level installation technician. This is not an ultrasound performed [...] the above symptoms, contact our office at [phone] and ask to speak with anurse. After hours, you can call doctors registry at [phone] OR call [facility] at [phone] ask to have the doctor chlorination operator paged. If you consider this an emergency, dial 9-1-9 or go to your nearest emergency department. NEED HELP? Are you dealing with a violent or abusive relationship? Are you a victim of rape or sexual assult? Call [facility] ([place]) 24 hour Crisis Hotline: 402.524.2225 or 561-141-0801. MANUAL Your Guide to a Healthy manual is now on-line. Visit [facility] [email or web address] to download your free copy documented in this encounterSumma Health Barberton Campus07-14-2023 Miscellaneous Notes* Quick Notes - Crystal Baxter MD - 12/13/2022 11:10 AM EDT DM- Pt doing well today. Denies Vaginal Bleeding, Leaking fluid, or contractions. Pt reports good movement. IOL scheduled for next week. Membranes swept per patient request. Kick counts and labor reviewed. Crystal Beasley MD documented in this encounterSumma Health Barberton Campus07-14-2023 Instructions* Patient Instructions* Haley Junior Ma - 12/13/2022 9:58 AM EDT SEQUENTIAL SCREENINGS The [facility] offers sequential screenings for women who are [...] testing. It will require an appointment withour entry level installation technician. This is not an ultrasound performed [...] the above symptoms, contact our office at [phone] and ask to speak with anurse. After hours, you can call [employer] registry at [phone] OR call [facility] at [phone] ask to have the doctor chlorination operator paged. If you consider this an emergency, dial 9-1-9 or go to your nearest emergency department. NEED HELP? Are you dealing with a violent or abusive relationship? Are you a victim of rape or sexual assult? Call [facility] ([place]) 24 hour Crisis Hotline: 701.848.5566 or 943-781-0410. MANUAL Your Guide to a Healthy manual is now on-line. Visit [email or web address] [email or web address] to download your free copy documented in this encounterSumma Health Barberton Campus07-10-2023 Miscellaneous Notes* Quick Notes - Karoline Bautista MD - 12/09/2022 10:20 AM EDT RR- No VB/LOF. No regular ctxws. No signif edema. Denies Freeman or visual changes. D/w her options, elects for membrane sweep today. F/u in 4-5 days and if not delivered likely would plan approx 41 week induction. Karoline Bautista MD documented in this encounterSumma Health Barberton Campus07-10-2023 Instructions* Patient Instructions* Luciana Al Ma - 12/09/2022 10:02 AM EDT SEQUENTIAL SCREENINGS The [facility] offers sequential screenings for women who are [...] testing. It will require an appointment withour entry level installation technician. This is not an ultrasound performed [...] the above symptoms, contact our office at [phone] and ask to speak with anurse. After hours, you can call doctors registry at [phone] OR call [facility] at [phone] ask to have the doctor chlorination operator paged. If you consider this an emergency, dial 9-1-2 or go to your nearest emergency department. NEED HELP? Are you dealing with a violent or abusive relationship? Are you a victim of rape or sexual assult? Call [facility] ([place]) 24 hour Crisis Hotline: 777.201.9773 or 262-769-2422. MANUAL Your Guide to a Healthy manual is now on-line. Visit [facility] [email or web address] to download your free copy documented in this encounterSumma Health Barber[facility] Campus06-26-2023 Miscellaneous Notes* Quick Notes - Ethel Ruiz [...] call 2) RTO in one week Ethel uRiz APRN.CNM documented in this encounterSumma Health Barberton Campus06-26-2023 Instructions* Patient Instructions* Joe Farooq Cma - 11/25/2022 11:07 AM EDT SEQUENTIAL SCREENINGS The [facility] offers sequential screenings for women who are [...] testing. It will require an appointment withour entry level installation technician. This is not an ultrasound performed [...] the above symptoms, contact our office at [phone] and ask to speak with anurse. After hours, you can call doctors registry at [phone] OR call [facility] at [phone] ask to have the doctor chlorination operator paged. If you consider this an emergency, dial 6-1-7 or go to your nearest emergency department. NEED HELP? Are you dealing with a violent or abusive relationship? Are you a victim of rape or sexual assult? Call [facility] ([place]) 24 hour Crisis Hotline: 507.283.6476 or 289-935-9957. MANUAL Your Guide to a Healthy manual is now on-line. Visit [facility] [email or web address] to download your free copy documented in this encounterSumma Health Barberton Campus06-20-2023 Miscellaneous Notes* Quick Notes - Ethel Ruiz [...] support. Ethel Ruiz APRN.CNM documented in this encounterSumma Health Barberton Campus06-20-2023 Instructions* Patient Instructions* Ethel Ruiz APRN.CNM - [...] an easy pie crust in the food crops farm hand. Add soaked dates to homemade nut butter for a sweet treat. Add dates to chino homemade salad dressing. Add dates during easily with these yummy (paleo friendly) bars made from dates. What Is Red Raspberry [place] Tea? Red raspberry leaf tea comes from [...] , and too. How Much Red Raspberry [place] Tea to Drink? With your doctor or director investment banking s approval, start with 1 cup of [...] because of uterine cramping. Is Red Raspberry [place] Tea the Same as Raspberry [place] Tea? How About Plain Old Raspberry Tea? Sometimes. You really need to look at the ingredients to be sure. Note that there is no difference between red raspberry leaf and raspberry leaf. Polyplus-transfection or Sellaround Raspberry [place] Tea are two good brands. The red [...] of RRLT outlined in this article. The [employer] www.[employer] I named this 'circuit' after my friend [...] sideways, 2 at a time, (have a offset press operator apprentice downstairs of you!), take a walk outside [...] pelvis. Laurence Stevens Arsenio: Circuit Creator - www.vero beachEquipboardsaint louis university hospitalcollSophia Search.[employer] Jacqui Kirk CD, BDT (NAHED), LCCE, FACCE: Supporting Content - www.numares GmbHyangBrilliant.orgconcetta.[employer] Technology Jenny Lin: Photography - www.kieshaaverbroUSERJOY Technology.[employer] Kylah Vidales CD/CDT (JETT): Print and Wire Mesh Filter Fabricator - www.Nexopia.[employer] Masterminds [employer] www.[employer] What is my perineum? Your perineum is [...] the above symptoms, contact our office at [phone] and ask to speak with anurse. After hours, you can call doctors registry at [phone] OR call [facility] at [phone] ask to have the doctor chlorination operator paged. If you consider this an emergency, dial 9-1-2 or go to your nearest emergency department. NEED HELP? Are you dealing with a violent or abusive relationship? Are you a victim of rape or sexual assult? Call [facility] ([place]) 24 hour Crisis Hotline: 781.441.1088 or 858-926-0547. MANUAL Your Guide to a Healthy manual is now on-line. Visit [email or web address] to download your free copy documented in this encounterSumma Health Barberton Campus06-05-2023 Miscellaneous Notes* Quick Notes - Phillip Castro MD - 11/04/2022 10:47 AM EDT SW- Pt doing well. No ctx, vb, lof. Good FM PE: Gen- NAD, well appearing Abd- Soft, gravid, NT Ext- No edema See flowsheet A/p 34 wk gestation - Discussed PTL precautions and FKC's - RTO 2 wks for GBS Phillip Castro DO documented in this encounterSumma Health Barberton Campus06-05-2023 Instructions* Patient Instructions* Seema Rose MA - 11/04/2022 10:34 AM EDT SEQUENTIAL SCREENINGS The [facility] offers sequential screenings for women who are [...] testing. It will require an appointment withour entry level installation technician. This is not an ultrasound performed [...] the above symptoms, contact our office at [phone] and ask to speak with anurse. After hours, you can call doctors registry at [phone] OR call [facility] at [phone] ask to have the doctor chlorination operator paged. If you consider this an emergency, dial 9-8-6 or go to your nearest emergency department. NEED HELP? Are you dealing with a violent or abusive relationship? Are you a victim of rape or sexual assult? Call [facility] ([facility] 24 hour Crisis Hotline: 323.949.4371 or 841-981-7645. MANUAL Your Guide to a Healthy manual is now on-line. Visit [facility] [email or web address]/[email or web address] to download your free copy documented in this encounterSumma Health Barberton Campus05-04-2023 Miscellaneous Notes* Quick Notes - Brijesh Biswas MD - 10/03/2022 2:59 PM EDT KJ - No VB/LOF/ctxs. Reports good FM. A&P: Reviewed PTL & FM precautions Brijesh Biswas MD documented in this encounterSumma Health Barberton Campus05-04-2023 Instructions* Patient Instructions* Luciana Al Ma - 10/03/2022 2:37 PM EDT SEQUENTIAL SCREENINGS The [facility] offers sequential screenings for women who are [...] testing. It will require an appointment withour entry level installation technician. This is not an ultrasound performed [...] the above symptoms, contact our office at [phone] and ask to speak with anurse. After hours, you can call doctors registry at [phone] OR call [facility] at [phone] ask to have the doctor chlorination operator paged. If you consider this an emergency, dial 9--1 or go to your nearest emergency department. NEED HELP? Are you dealing with a violent or abusive relationship? Are you a victim of rape or sexual assult? Call [facility] ([place]) 24 hour Crisis Hotline: 613.817.7863 or 449-585-5244. MANUAL Your Guide to a Healthy manual is now on-line. Visit [facility] [email or web address] to download your free copy documented in this encounterSumma Health Barberton Campus04-21-2023 Miscellaneous Notes* Quick Notes - Brijesh Biswsa MD - 09/20/2022 11:12 AM EDT KJ - No VB/LOF/ctxs. Reports good FM. A&P: 28wk labs Tdap PPBC - declines LARC. considering vasectomy. Reviewed PTL & FM precautions Brijesh Biswas MD documented in this encounterSumma Health Barberton Campus04-21-2023 History of Present illness Narrative* Cecelia Pardo [...] severely ill: Yes Patient denies history of Guillain-Foster Syndrome (a severe paralytic illness): Yes Tdap Adacel injection was given without incident. See immunizations for details of immunizations administered today. VIS sheet provided: Yes Provider Dr Biswas was present in office at time of injection. Cecelia Pardo Ma documented in this encounterSumma Health Barberton Campus04-21-2023 Instructions* Patient Instructions* Cecelia Pardo Ma - 09/20/2022 10:55 AM EDT SEQUENTIAL SCREENINGS The [facility] offers sequential screenings for women who are [...] testing. It will require an appointment withour entry level installation technician. This is not an ultrasound performed [...] the above symptoms, contact our office at [phone] and ask to speak with anurse. After hours, you can call doctors registry at [phone] OR call [facility] at [phone] ask to have the doctor chlorination operator paged. If you consider this an emergency, dial 9-1-6 or go to your nearest emergency department. NEED HELP? Are you dealing with a violent or abusive relationship? Are you a victim of rape or sexual assult? Call [facility] ([place]) 24 hour Crisis Hotline: 816.723.1786 or 032-707-3299. MANUAL Your Guide to a Healthy manual is now on-line. Visit [facility] [email or web address]/HealthyPregnancyGuide to download your free copy documented in this encounterSumma Health Barberton Campus04-06-2023 Miscellaneous Notes* Quick Notes - Karoline Bautista [...] . Karoline Bautista M.D. documented in this encounterSumma Health Barberton Campus04-06-2023 Instructions* Patient Instructions* Seema Rose MA - 09/05/2022 9:44 AM EDT SEQUENTIAL SCREENINGS The [facility] offers sequential screenings for women who are [...] testing. It will require an appointment withour entry level installation technician. This is not an ultrasound performed [...] the above symptoms, contact our office at [phone] and ask to speak with anurse. After hours, you can call doctors registry at [phone] OR call [facility] at [phone] ask to have the doctor chlorination operator paged. If you consider this an emergency, dial 9-1-1 or go to your nearest emergency department. NEED HELP? Are you dealing with a violent or abusive relationship? Are you a victim of rape or sexual assult? Call [facility] ([place]) 24 hour Crisis Hotline: 293.938.4311 or 939-183-9319. MANUAL Your Guide to a Healthy manual is now on-line. Visit [facility] [email or web address]/HealthyPregnancyGuide to download your free copy documented in this encounterSumma Health Barberton Campus03-29-[address] Ferris [facility] August 28, 2022 8:05pm Note Date/Time August 28, 2022 7:0 0pm [facility] Medical Records Department [address] [place] [address] Emergency Department Summary 08/28/22 MR#: [id number] Acct: [id number] Name: RAMONA WAHL Rep #:[id number] : 1990 32 From: Lucas Ferris DO PCP: Care Physician,No Primary Status :[facility] ER Location: ED HPI History of [...] sick contacts the patient is aware of. [facility] Medical History Migraines Home Medications cephalexin 500 mg capsule 500 mg PO Q12 #10 CAPSULES 08/28/22 [Rx Last Taken Unknown] ondansetron 4 mg disintegrating tablet 4 mg PO Q8H PRN PRN Nausea #10 tabs 08/28/22 [Rx Last Taken Unknown] promethazine 25 mg rectal suppository 25 mg IL Q6H #6 ea 08/28/22 [Rx Last Taken [...] Ox 97 Oxygen Delivery Method Room Air [facility] Lab Data Labs: Laboratory Results - last 24 hr 08/28/22 08/28/22 08/28/22 18:15 18:15 19:30 WBC 6.8 RBC 4.41 Hgb 14.2 Hct 41.7 MCV 94.6 MCH 32.2 H MCHC 34.1 RDW Std Deviation 48.2 H RDW Coeff of Haresh 13.8 Plt Count 234 MPV 9.5 Immature Gran % (Auto) 1.300 H Neut % (Auto) 74.4 H Lymph % (Auto) 13.5 L [place] % (Auto) 9.8 Eos % (Auto) 0.4 [...] Clarity Clear Urine pH 6.0 Ur Specific [place] 1.025 Urine Protein 30 H Urine Glucose [...] New promethazine 25 mg suppository 25 mg IL Q6H Qty: 6 0RF ondansetron 4 mg [...] Gatorade or Powerade. Increase water. Follow-up with DRIVER RECRUITER. Disposition Disposition: Home, Self Care What to do if you have Problems For any increased pain, shortness of breath, bleeding, nausea or vomiting, chestpain, or any unexpected problems, contact your Primary Care Provider. Call Doctors Registry ([phone]) or report to the closest Emergency Room. Call 911 if necessary. 08/28/222004 <Electronically signed by Lucas Ferris DO> Cosigner Signature (if applicable): CC: No Primary Care Physician ~ Signed [facility] Work Phone: 1(810) 542-498403-29-2023 Miscellaneous Notes* Telephone Encounter - Crystal Hurtado [...] appointment. JINA Chacon RN documented in this encounterSumma Health Barberton Campus02-06-2023 Miscellaneous Notes* Telephone Encounter - Haritha Marie RN - 07/08/2022 12:19 PM EST Order signed and faxed. Haritha Marie RN * Telephone Encounter - Ana Chacon RN - 07/05/2022 10:44 AM EST Received breast pump order from [employer]. To SW to sign. Ana Chacon RN documented in this encounterSumma Health Barberton Campus01-06-2023 Miscellaneous Notes* Quick Notes - Brijesh Biswas MD - 06/07/2022 8:40 AM EST KJ - No VB/LOF/ctxs. Reports morning nausea with some emesis. Tolerating PO later in the day. The phenergan makes her drowsy. A&P: Nausea - advised on regular snacking. Rx zofran given. Declines aneupoldy screening Anatomy US ordered Brijesh Biswas MD documented in this encounterSumma Health Barberton Campus01-06-2023 Instructions* Patient Instructions* Luciana Al Ma - 06/07/2022 8:16 AM EST SEQUENTIAL SCREENINGS The [facility] offers sequential screenings for women who are [...] testing. It will require an appointment withour entry level installation technician. This is not an ultrasound performed [...] the above symptoms, contact our office at [phone] and ask to speak with anurse. After hours, you can call doctors registry at [phone] OR call [facility] at [phone] ask to have the doctor chlorination operator paged. If you consider this an emergency, dial 1-8-7 or go to your nearest emergency department. NEED HELP? Are you dealing with a violent or abusive relationship? Are you a victim of rape or sexual assult? Call [facility] ([place]) 24 hour Crisis Hotline: 921.654.4458 or 074-179-6471. MANUAL Your Guide to a Healthy manual is now on-line. Visit [email or web address] to download your free copy documented in this encounterSumma Health Barberton Campus12-15-2022 Miscellaneous Notes* Telephone Encounter - Haritha Marie RN - 05/16/2022 2:54 PM EST Subject of [employer] message is [employer] screen. Message sent to patient. Haritha Marie RN * Telephone Encounter - Phillip Castro MD - 05/16/2022 2:43 PM EST Please call pt and clarify what test she wants. She had declined aneuploidy and carrier screening at [facility]. Looks like when she had her PNOB she was considering aneuploidy screening so she may be asking about NIPT. If she desires NIPT she will need NT around 12 weeks. Thanks * Telephone Encounter - Izabela Link LPN - 05/16/2022 2:08 PM EST Please see pt's mychart message and further advise. Izabela Link LPN documented in this encounterSumma Health Barberton Campus12-09-2022 History of Present illness Narrative* Phillip Castro [...] Folic acid: Yes Occupation: working from home Scientology or heritage: No Would refuse blood transfusion if medically necessary: No BMI 19.77 kg/(m^2) Patient BMI over 30? 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 Phillip Castro DO documented in this encounterSumma Health Barberton Campus12-09-2022 Instructions* Patient Instructions* Seema oRse MA - 05/10/2022 11:22 AM EST Please select the following link to access the [facility] Your Guide to a Healthy . [email or web address] documented in this encounterSumma Health Barberton Campus12-07-2022 Miscellaneous Notes* Telephone Encounter - Gisel Khan [...] advise. Ana Chacon RN documented in this encounterSumma Health Barberton Campus12-01-2022 Miscellaneous Notes* Quick Notes - Katherin Shin [...] screening testing.Katherin Shin RN documented in this encounterSumma Health Barberton Campus12-01-2022 History of Present illness Narrative* Katherin Shin [...] Living: None, Comments: None documented in this encounterSumma Health Barberton Campus11-07-2022 Miscellaneous Notes* Telephone Encounter - Haritha Marie RN - 04/08/2022 12:02 PM EST Received records [facility]. In PNOB mailbox for 05/02/22 PNOB appointment. Haritha Marie RN documented in this encounterSumma Health Barberton Campus11-04-2022 Miscellaneous Notes* Telephone Encounter - Ana Chacon RN - 04/05/2022 3:00 PM EDT Received outside medical records from [facility]. To SW to review. Ana Chacon RN documented in this encounterSumma Health Barberton Campus10-31-2022 History of Present illness Narrative* Phillpi Castro MD - 04/01/2022 9:19 AM EDT Ramona is a 31 year old who presents for an annual gynecologic exam without complaints. Just moved to [place] with . Desires . H/o hyperemesis. 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 LMP: 03/05/2022 (Exact Date), Having periods Age at Menarche: Age at First : Age at Menopause: Manager Aerospace History Comments: Sexual Activity: Yes; Male Contraception: [...] external genitalia normal, normal Bartholin's glands, urethra, Kingsland's glands, no vulvar lesions, no cervical lesions, [...] needed Phillip Castro DO documented in this encounterSumma Health Barberton Campus12-08-2021 History of Present illness Narrative* 31F who [...] * Patient is wishing to get soon [facility] Work Phone: 1(916) 763-978912-08-2021 History of Present illness Narrative* 31F who [...] * Patient is wishing to get soon [facility] Work Phone: 1(183) 537-519512-04-2021 History of Present illness Narrative* 31F who [...] * Patient is wishing to get soon [facility] Work Phone: 1(400) 182-554407-01-2021 History of Present illness Narrative* Ramona Wahl [...] environmental t * Surgeries: none * gallbladder-cystectomy [facility] Work Phone: 1(742) 122-748607-01-2021 History of Present illness Narrative* Ramona Wahl [...] environmental t * Surgeries: none * gallbladder-cystectomy [facility] Work Phone: 1(825) 330-497407-01-2020 History of Past illness Narrative* Problem Noted Date Resolved Date Nausea and vomiting during 12/01/2019 07/19/2022 Overview: - Transfer from [facility] - S/p 2L IVF, Zofran, Reglan [...] of this encounter (statuses as of 08/28/2022) [facility] History of Past illness Narrative* Problem Noted Date Resolved Date Nausea and vomiting during 12/01/2019 07/19/2022 Overview: - Transfer from [facility] - S/p 2L IVF, Zofran, Reglan [...] of this encounter (statuses as of 09/05/2022) [facility] [facility] History of Past illness Narrative* Problem Noted Date Resolved Date Nausea and vomiting during 12/01/2019 07/19/2022 Overview: - Transfer from [facility] - S/p 2L IVF, Zofran, Reglan [...] of this encounter (statuses as of 09/09/2022) [facility]2020 History of Past illness Narrative* Problem Noted Date Resolved Date Nausea and vomiting during 12/01/2019 07/19/2022 Overview: - Transfer from [facility] - S/p 2L IVF, Zofran, Reglan [...] of this encounter (statuses as of 09/20/2022) [facility]2020 History of Past illness Narrative* Problem Noted Date Resolved Date Nausea and vomiting during 12/01/2019 07/19/2022 Overview: - Transfer from [facility] - S/p 2L IVF, Zofran, Reglan [...] of this encounter (statuses as of 10/04/2022) [facility] History of Past illness Narrative* Problem Noted Date Resolved Date Nausea and vomiting during 12/01/2019 07/19/2022 Overview: - Transfer from [facility] - S/p 2L IVF, Zofran, Reglan [...] of this encounter (statuses as of 11/04/2022) [facility]07[facility] History of Past illness Narrative* Problem Noted Date Resolved Date Nausea and vomiting during 12/01/2019 07/19/2022 Overview: - Transfer from [facility] - S/p 2L IVF, Zofran, Reglan [...] of this encounter (statuses as of 11/19/2022) [facility] History of Past illness Narrative* Problem Noted Date Resolved Date Nausea and vomiting during 12/01/2019 07/19/2022 Overview: - Transfer from [facility] - S/p 2L IVF, Zofran, Reglan [...] of this encounter (statuses as of 11/26/2022) [facility] History of Past illness Narrative* Problem Noted Date Diagnosed Date Resolved Date Nausea and vomiting during 12/01/2019 07/19/2022 Overview: - Transfer from [facility] - S/p 2L IVF, Zofran, Reglan [...] of this encounter (statuses as of 12/09/2022) [facility] History of Past illness Narrative* Problem Noted Date Diagnosed Date Resolved Date Nausea and vomiting during 12/01/2019 07/19/2022 Overview: - Transfer from [facility] - S/p 2L IVF, Zofran, Reglan [...] of this encounter (statuses as of 12/13/2022) [facility] History of Past illness Narrative* Problem Noted Date Diagnosed Date Resolved Date Nausea and vomiting during 12/01/2019 07/19/2022 Overview: - Transfer from [facility] - S/p 2L IVF, Zofran, Reglan [...] of this encounter (statuses as of 12/17/2022) [facility] History of Past illness Narrative* Problem Noted Date Diagnosed Date Resolved Date Nausea and vomiting during 12/01/2019 07/19/2022 Overview: - Transfer from [facility] - S/p 2L IVF, Zofran, Reglan [...] of this encounter (statuses as of 01/08/2023) [facility] Narrative - ReportedEvaluation of ruq pain, gallbladder.[facility] Work Phone: chief complaint Narrative - ReportedEvaluation of ruq pain, gallbladder.[facility] Work Phone: evaluation note* Diagnosis Encounter for gynecological examination without abnormal finding- Primary Routine gynecological examination Encounter for screening for malignant neoplasm of cervix Screening for malignant neoplasm of the cervix documented [facility] Diagnosis Supervision of with history of infertility, antepartum- Primary related nausea, antepartum Mild hyperemesis gravidarum, antepartum History of anxiety Personal history of other mental disorder History of hypothyroidism Personal history of other endocrine, metabolic, and immunity disorders documented [facility] this [facility]* Diagnosis Encounter for supervision of other normal in first trimester- Primary 9 weeks gestation of state, incidental [facility] Diagnosis Encounter for supervision of other normal in first trimester- Primary 13 weeks gestation of state, incidental [facility] noteNo assessment information availableWNationwide [facility] Work Phone: [facility]* Diagnosis 26 weeks gestation of - Primary state, incidental Encounter for supervision of other normal in second trimester [facility] Diagnosis Encounter for supervision of other normal in third trimester- Primary 28 weeks gestation of state, incidental Need for vaccination Need for prophylactic vaccination and inoculation against unspecified single disease [facility]* Diagnosis Supervision of with history of infertility, antepartum- Primary 30 weeks gestation of state, incidental [facility]* Diagnosis 34 weeks gestation of - Primary state, incidental Supervision of with history of infertility, antepartum [facility] Diagnosis 36 weeks gestation of - Primary state, incidental [facility] Diagnosis 37 weeks gestation of - Primary state, incidental [facility] Diagnosis Supervision of with history of infertility, antepartum- Primary 39 weeks gestation of state, incidental [facility] Diagnosis Supervision of with history of infertility, antepartum- Primary 40 weeks gestation of state, incidental [facility] Diagnosis Supervision of with history of infertility, antepartum- Primary 40 weeks gestation of state, incidental [facility] Diagnosis state- Primary Routine follow-up [facility] Diagnosis Encounter for gynecological examination (general) (routine) without abnormal findings- Primary [facility]* Diagnosis Impacted cerumen of left ear- Primary Impacted cerumen documented in this encounter [facility] Work Phone: Evaluation note* Diagnosis Nausea and vomiting in - Primary Unspecified vomiting of , unspecified as to episode of care 7 weeks gestation of state, incidental History of hypothyroidism Personal history of other endocrine, metabolic, and immunity disorders documented in this encounter [facility] Diagnosis with uncertain dates, antepartum- Primary state, incidental 8 weeks gestation of state, incidental Screen for STD (sexually transmitted disease) Screening examination for venereal disease Screening for cervical cancer Screening for malignant neoplasm of the cervix Encounter for supervision of normal intrauterine in multigravida, antepartum Hyperemesis of Mild hyperemesis gravidarum, unspecified as to episode of care documented in this encounter [facility] note* Diagnosis Encounter for medical examination to establish care- Primary documented in this encounter [facility] Diagnosis Encounter for screening for malformation using ultrasound- Primary 12 weeks gestation of state, incidental documented in this encounter [facility] Diagnosis Encounter for supervision of other normal in second trimester- Primary 12 weeks gestation of state, incidental History of anxiety Personal history of other mental disorder History of hypothyroidism Personal history of other endocrine, metabolic, and immunity disorders related nausea, antepartum Mild hyperemesis gravidarum, antepartum documented in this encounter [facility] Diagnosis Encounter for supervision of normal intrauterine in multigravida, antepartum ([facility])- Primary Encounter for supervision of other normal in second trimester ([facility])- Primary 20 weeks gestation of ([facility]) state, incidental History of hypothyroidism Personal history of other endocrine, metabolic, and immunity disorders History of anxiety Personal history of other mental disorder [facility] Diagnosis Encounter for supervision of normal intrauterine in multigravida, antepartum ([facility])- Primary Encounter for anatomic survey ([facility])- Primary Encounter for anatomic survey 21 weeks gestation of ([facility]) state, incidental documented in this encounter [facility] Diagnosis Encounter for supervision of normal intrauterine in multigravida, antepartum ([facility])- Primary Encounter for supervision of other normal in second trimester ([facility])- Primary 24 weeks gestation of (HCC) [...] and immunity disorders [facility] Diagnosis Encounter for supervision of normal intrauterine in multigravida, antepartum (HCC)- Primary 30 weeks gestation of ([facility])- Primary state, incidental Encounter for supervision of other normal in third trimester ([facility]) Bilateral hip pain Pain in joint, pelvic region and thigh [facility] Diagnosis Encounter for supervision of normal intrauterine in multigravida, antepartum ([facility])- Primary 34 weeks gestation of ([facility])- Primary state, incidental Encounter for supervision of other normal in third trimester ([facility]) History of hypothyroidism Personal history of other endocrine, metabolic, and immunity disorders [facility] Diagnosis Encounter for supervision of normal intrauterine in multigravida, antepartum ([facility])- Primary Encounter for supervision of other normal in third trimester ([facility])- Primary 36 weeks gestation of ([facility]) state, incidental History of hypothyroidism Personal history of other endocrine, metabolic, and immunity disorders documented [facility] Diagnosis Encounter for supervision of normal intrauterine in multigravida, antepartum ([facility])- Primary 37 weeks gestation of ([facility])- Primary state, incidental History of hypothyroidism Personal history of other endocrine, metabolic, and immunity disorders Encounter for supervision of other normal in third trimester ([facility]) [facility] Diagnosis Encounter for supervision of normal intrauterine in multigravida, antepartum ([facility])- Primary Low TSH level- Primary Nonspecific abnormal results of thyroid function study documented [facility] Diagnosis Encounter for supervision of normal intrauterine in multigravida, antepartum ([facility])- Primary Encounter for supervision of other normal in third trimester ([facility])- Primary History of hypothyroidism Personal history of other endocrine, metabolic, and immunity disorders 38 weeks gestation of (HCC) state, incidental [facility] N[facility]* 30 yo female presents for c/o b/l ear fullness x 1 month * Pt denies fevers/chills or ear pain * 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 Patient recently moved to [facility]. surgical pathology revealed a gallbladder with [...] * General and Trauma surgery * Office: [phone] * [facility] Work Phone: Hospital Discharge instructions Additional Instructions Increase fluids at home. Use Keflex for the next 5 days. Use Zofran ODT as needed, also Phenergan suppositories could be used along with Zofran if needed. Increase Gatorade or Powerade. Increase water. Follow-up with DRIVER RECRUITER.[facility] Work Phone: Reason for referral (narrative)* Diagnostic Procedure Only (Routine) - Authorized Specialty Diagnoses / Procedures Referred By Pari sellers Referred To Contact [facility] Diagnoses Encounter for supervision of other normal in first trimester Procedures OBSTETRIC ULTRASOUND WHI US PREG UTERUS AFTER 1ST TRIMEST GESTATION Brijesh Biswas MD [address] [place] [address] [facility] [address] [place] [address] Referral ID Status Reason Start Date Expiration Date Visits Requested Visits Authorized [id number] Authorized Auto-Generat ed Referral 06/07/2022 06/07/2023 1 1 [facility] Summary Purpose Family History No Family History [...] No August 28, 2022 5:59pm Power of Automobile Or Truck Rental Dispatcher No August 28 5:59pm Hospital Course * [...] Vivian Rondon MD ([id number]) - Obstetrics and STRATEGIES ANALYST * Follow up with Ordering Physician : 6 * Discharge Physician Specialty : Week(s) * Discharge Physician Phone: : [address] [place] [phone] * Patient stated Primary Care Provider : [...] * Discharge Physician: : Vivian Rondon MD ([id number]) - Obstetrics and STRATEGIES ANALYST * Follow up with Ordering Physician : 6 * Discharge Physician Specialty : Week(s) * Discharge Physician Phone: : [address] [facility] [address] [place] [phone] * Patient stated Primary Care Provider : [...] section and content) DATE CREATED AUTHOR 05/11/2018 [facility] DATE CREATED AUTHOR AUTHOR'S ORGANIZ ATION 05/11/2018 [facility] DATE CREATED AUTHOR AUTHOR'S ORGANIZ ATION 12/23/2019 [facility] DATE CREATED AUTHOR AUTHOR'S ORGANIZ ATION 02/26/2020 [facility] DATE CREATED AUTHOR AUTHOR'S ORGANIZ ATION 07/29/2020 [facility] DATE CREATED AUTHOR AUTHOR'S ORGANIZ ATION 06/08/2021 [facility] DATE CREATED AUTHOR AUTHOR'S ORGANIZ ATION [facility] DATE CREATED AUTHOR AUTHOR'S ORGANIZ ATION 12/01/2021 [facility] DATE CREATED AUTHOR AUTHOR'S ORGANIZ ATION 12/07/2021 [facility] DATE CREATED AUTHOR AUTHOR'S ORGANIZ ATION 03/30/2024 [facility] DATE CREATED AUTHOR AUTHOR'S ORGANIZ ATION 08/01/2024 [facility] DATE CREATED AUTHOR AUTHOR'S ORGANIZ ATION 02/17/2025 [facility] Goals (unrecognized section and content) Goals from [...] or prosecute any alcohol or drug abuse patient.[facility] the event this information is protected by the Federal Confidentiality of Alcohol and Drug Abuse Patient Records regulations: The Federal rules restrict any use of the information to criminally investigate or prosecute any alcohol or drug abuse patient.[facility] the event this information is protected by the Federal Confidentiality of Alcohol and Drug Abuse Patient Records regulations: The Federal rules restrict any use of the information to criminally investigate or prosecute any alcohol or drug abuse patient.[facility] the event this information is protected by the Federal Confidentiality of Alcohol and Drug Abuse Patient Records regulations: The Federal rules restrict any use of the information to criminally investigate or prosecute any alcohol or drug abuse patient.[facility] the event this information is protected by the Federal Confidentiality of Alcohol and Drug Abuse Patient Records regulations: The Federal rules restrict any use of the information to criminally investigate or prosecute any alcohol or drug abuse patient.[facility] the event this information is protected by the Federal Confidentiality of Alcohol and Drug Abuse Patient Records regulations: The Federal rules restrict any use of the information to criminally investigate or prosecute any alcohol or drug abuse patient.[facility] the event this information is protected by [...] or prosecute any alcohol or drug abuse patient.[facility] the event this information is protected by the Federal Confidentiality of Alcohol and Drug Abuse Patient Records regulations: The Federal rules restrict any use of the information to criminally investigate or prosecute any alcohol or drug abuse patient.[facility] the event this information is protected by the Federal Confidentiality of Alcohol and Drug Abuse Patient Records regulations: The Federal rules restrict any use of the information to criminally investigate or prosecute any alcohol or drug abuse patient.[facility] the event this information is protected by the Federal Confidentiality of Alcohol and Drug Abuse Patient Records regulations: The Federal rules restrict any use of the information to criminally investigate or prosecute any alcohol or drug abuse patient.[facility] the event this information is protected by the Federal Confidentiality of Alcohol and Drug Abuse Patient Records regulations: The Federal rules restrict any use of the information to criminally investigate or prosecute any alcohol or drug abuse patient.[facility] the event this information is protected by the Federal Confidentiality of Alcohol and Drug Abuse Patient Records regulations: The Federal rules restrict any use of the information to criminally investigate or prosecute any alcohol or drug abuse patient.[facility]In the event this information is protected by the Federal Confidentiality of Alcohol and Drug Abuse Patient Records regulations: The Federal rules restrict any use of the information to criminally investigate or prosecute any alcohol or drug abuse patient.[facility] the event this information is protected by the Federal Confidentiality of Alcohol and Drug Abuse Patient Records regulations: The Federal rules restrict any use of the information to criminally investigate or prosecute any alcohol or drug abuse patient.[facility] the event this information is protected by the Federal Confidentiality of Alcohol and Drug Abuse Patient Records regulations: The Federal rules restrict any use of the information to criminally investigate or prosecute any alcohol or drug abuse patient.[facility] the event this information is protected by the Federal Confidentiality of Alcohol and Drug Abuse Patient Records regulations: The Federal rules restrict any use of the information to criminally investigate or prosecute any alcohol or drug abuse patient.[facility]In the event this information is protected by the Federal Confidentiality of Alcohol and Drug Abuse Patient Records regulations: The Federal rules restrict any use of the information to criminally investigate or prosecute any alcohol or drug abuse patient.[facility] the event this information is protected by the Federal Confidentiality of Alcohol and Drug Abuse Patient Records regulations: The Federal rules restrict any use of the information to criminally investigate or prosecute any alcohol or drug abuse patient.[facility] the event this information is protected by the Federal Confidentiality of Alcohol and Drug Abuse Patient Records regulations: The Federal rules restrict any use of the information to criminally investigate or prosecute any alcohol or drug abuse patient.[facility]In the event this information is protected by the Federal Confidentiality of Alcohol and Drug Abuse Patient Records regulations: The Federal rules restrict any use of the information to criminally investigate or prosecute any alcohol or drug abuse patient.[facility] the event this information is protected by the Federal Confidentiality of Alcohol and Drug Abuse Patient Records regulations: The Federal rules restrict any use of the information to criminally investigate or prosecute any alcohol or drug abuse patient.[facility] the event this information is protected by the Federal Confidentiality of Alcohol and Drug Abuse Patient Records regulations: The Federal rules restrict any use of the information to criminally investigate or prosecute any alcohol or drug abuse patient.[facility] the event this information is protected by the Federal Confidentiality of Alcohol and Drug Abuse Patient Records regulations: The Federal rules restrict any use of the information to criminally investigate or prosecute any alcohol or drug abuse patient.[facility] the event this information is protected by the Federal Confidentiality of Alcohol and Drug Abuse Patient Records regulations: The Federal rules restrict any use of the information to criminally investigate or prosecute any alcohol or drug abuse patient.[facility] the event this information is protected by the Federal Confidentiality of Alcohol and Drug Abuse Patient Records regulations: The Federal rules restrict any use of the information to criminally investigate or prosecute any alcohol or drug abuse patient.[facility] the event this information is protected by the Federal Confidentiality of Alcohol and Drug Abuse Patient Records regulations: The Federal rules restrict any use of the information to criminally investigate or prosecute any alcohol or drug abuse patient.[facility] the event this information is protected by the Federal Confidentiality of Alcohol and Drug Abuse Patient Records regulations: The Federal rules restrict any use of the information to criminally investigate or prosecute any alcohol or drug abuse patient.[facility] the event this information is protected by the Federal Confidentiality of Alcohol and Drug Abuse Patient Records regulations: The Federal rules restrict any use of the information to criminally investigate or prosecute any alcohol or drug abuse patient.[facility] the event this information is protected by the Federal Confidentiality of Alcohol and Drug Abuse Patient Records regulations: The Federal rules restrict any use of the information to criminally investigate or prosecute any alcohol or drug abuse patient.[facility] the event this information is protected by the Federal Confidentiality of Alcohol and Drug Abuse Patient Records regulations: The Federal rules restrict any use of the information to criminally investigate or prosecute any alcohol or drug abuse patient.[facility] CampusIn the event this information is protected by the Federal Confidentiality of Alcohol and Drug Abuse Patient Records regulations: The Federal rules restrict any use of the information to criminally investigate or prosecute any alcohol or drug abuse patient.[facility] CampusIn the event this information is protected by the Federal Confidentiality of Alcohol and Drug Abuse Patient Records regulations: The Federal rules restrict any use of the information to criminally investigate or prosecute any alcohol or drug abuse patient.[facility] CampusIn the event this information is protected by the Federal Confidentiality of Alcohol and Drug Abuse Patient Records regulations: The Federal rules restrict any use of the information to criminally investigate or prosecute any alcohol or drug abuse patient.[facility] CampusIn the event this information is protected by the Federal Confidentiality of Alcohol and Drug Abuse Patient Records regulations: The Federal rules restrict any use of the information to criminally investigate or prosecute any alcohol or drug abuse patient.[facility] CampusIn the event this information is protected by the Federal Confidentiality of Alcohol and Drug Abuse Patient Records regulations: The Federal rules restrict any use of the information to criminally investigate or prosecute any alcohol or drug abuse patient.[facility] CampusIn the event this information is protected by the Federal Confidentiality of Alcohol and Drug Abuse Patient Records regulations: The Federal rules restrict any use of the information to criminally investigate or prosecute any alcohol or drug abuse patient.[facility] CampusIn the event this information is protected by the Federal Confidentiality of Alcohol and Drug Abuse Patient Records regulations: The Federal rules restrict any use of the information to criminally investigate or prosecute any alcohol or drug abuse patient.[facility] CampusIn the event this information is protected by the Federal Confidentiality of Alcohol and Drug Abuse Patient Records regulations: The Federal rules restrict any use of the information to criminally investigate or prosecute any alcohol or drug abuse patient.[facility] CampusIn the event this information is protected by the Federal Confidentiality of Alcohol and Drug Abuse Patient Records regulations: The Federal rules restrict any use of the information to criminally investigate or prosecute any alcohol or drug abuse patient.[facility] CampusIn the event this information is protected by the Federal Confidentiality of Alcohol and Drug Abuse Patient Records regulations: The Federal rules restrict any use of the information to criminally investigate or prosecute any alcohol or drug abuse patient.[facility] CampusIn the event this information is protected by the Federal Confidentiality of Alcohol and Drug Abuse Patient Records regulations: The Federal rules restrict any use of the information to criminally investigate or prosecute any alcohol or drug abuse patient.[facility] CampusIn the event this information is protected by the Federal Confidentiality of Alcohol and Drug Abuse Patient Records regulations: The Federal rules restrict any use of the information to criminally investigate or prosecute any alcohol or drug abuse patient.[facility] CampusIn the event this information is protected by the Federal Confidentiality of Alcohol and Drug Abuse Patient Records regulations: The Federal rules restrict any use of the information to criminally investigate or prosecute any alcohol or drug abuse patient.[facility] CampusIn the event this information is protected by the Federal Confidentiality of Alcohol and Drug Abuse Patient Records regulations: The Federal rules restrict any use of the information to criminally investigate or prosecute any alcohol or drug abuse patient.[facility] CampusIn the event this information is protected by the Federal Confidentiality of Alcohol and Drug Abuse Patient Records regulations: The Federal rules restrict any use of the information to criminally investigate or prosecute any alcohol or drug abuse patient.[facility] Reason for Visit (unrecogniz ed section and [...] Referred By Contac t Referred To Contact [facility] Diagnoses with uncertain dates, antepartum 8 weeks gestation of Screen for STD (sexually transmitted disease) Procedures OBSTETRIC ULTRASOUND WHI US PREG UTERUS AFTER 1ST TRIMEST GESTATION Marielle Jiménez, FRED.STATISTICAL MACHINE MECHANIC [address] [place] [address] Phone: tel: fax: [facility] [address] [place] [address] Referral ID Status Reason Start Date Expiration Date V isits Requested Visits Authorized [id number] Closed Auto-Generate d Referral 07/20/2024 07/20/2025 1 1 Reason Onset Date Comments Care 08/17/2024 Reason Comments breast pump Reason Onset Date Comments Care 10/13/2024 Specialty Diagnoses / Procedures Referred By Contac t Referred To Contact [facility] Diagnoses with uncertain dates, antepartum (HCC) 8 weeks gestation of (HCC) Screen for STD (sexually transmitted disease) Procedures OBSTETRIC ULTRASOUND WHI US PREG UTERUS AFTER 1ST TRIMEST GESTATION Marielle Jiménez APRN.STATISTICAL MACHINE MECHANIC [address] [place] [address] Phone: tel: fax: [facility] [address] [place] [address] Referral ID Status Reason Start Date Expiration Date V isits Requested Visits Authorized [id number] Closed Auto-Generate d Referral 07/20/2024 07/20/2025 1 [...] Care Teams (unrecognized sec tion and content) Exchange Specialist Relationship Specialty Start Date End Date Ana Boateng CNP PCP - General Family Medicine 02/25/20 Exchange Specialist Relationship Specialty Start Date End Date Ana Boateng CNP PCP - General Family Medicine 02/25/20 Exchange Specialist Relationship Specialty Start Date End Date Ana Boateng CNP PCP - General Family Medicine 02/25/20 Exchange Specialist Relationship Specialty Start Date End Date Ana Boateng CNP PCP - General Family Medicine 02/25/20 Exchange Specialist Relationship Specialty Start Date End Date Ana Boateng CNP PCP - General Family Medicine 02/25/20 Exchange Specialist Relationship Specialty Start Date End Date Ana Boateng CNP PCP - General Family Medicine 02/25/20 Exchange Specialist Relationship Specialty Start Date End Date Ana Boateng CNP PCP - General Family Medicine 02/25/20 Exchange Specialist Relationship Specialty Start Date End Date Ana Boateng CNP PCP - General Family Medicine 02/25/20 Exchange Specialist Relationship Specialty Start Date End Date Ana Boateng CNP PCP - General Family Medicine 02/25/20 Exchange Specialist Relationship Specialty Start Date End Date Ana Boateng CNP PCP - General Family Medicine 02/25/20 Team Status: Active Member Role Status Dates Out of [facility] Doctor Family Provider Active No Primary Care Physician Primary Care Provider Active Team Status: Inactive Member Role Status Dates Dr. Lucas Ferris , DO Emergency Provider Active No Primary Care Physician Primary Care Provider Active Exchange Specialist Relationship Specialty Start Date End Date Ana Boateng CNP PCP - General Family Medicine 02/25/20 Exchange Specialist Relationship Specialty Start Date End Date Ana Boateng CNP PCP - General Family Medicine 02/25/20 Exchange Specialist Relationship Specialty Start Date End Date Ana Boateng CNP PCP - General Family Medicine 02/25/20 Exchange Specialist Relationship Specialty Start Date End Date Ana Boateng CNP PCP - General Family Medicine 02/25/20 Exchange Specialist Relationship Specialty Start Date End Date Ana Boateng CNP PCP - General Family Medicine 02/25/20 Exchange Specialist Relationship Specialty Start Date End Date Ana Boateng CNP PCP - General Family Medicine 02/25/20 Exchange Specialist Relationship Specialty Start Date End Date Ana Boateng CNP PCP - General Family Medicine 02/25/20 Exchange Specialist Relationship Specialty Start Date End Date Mindy BoatengferBECCA PCP - General Family Medicine 02/25/20 Exchange Specialist Relationship Specialty Start Date End Date Ana Boateng CNP PCP - General Family Medicine 02/25/20 Exchange Specialist Relationship Specialty Start Date End Date Generic Provider, [place] [address] PCP - General Cost Control Specialist 02/10/24 Exchange Specialist Relationship Specialty Start Date End Date Ana Boateng CNP PCP - General Family Medicine 02/25/20 Exchange Specialist Relationship Specialty Start Date End Date Ana Boateng CNP PCP - General Family Medicine 02/25/20 Exchange Specialist Relationship Specialty Start Date End Date Ana Boateng CNP PCP - General Family Medicine 02/25/20 Exchange Specialist Relationship Specialty Start Date End Date Alfredo Duran MD [address] [place], [place] [id number] PCP - General Family Medicine 08/17/24 Jeannie Taylor APRN.CNP [address] [place], [place] [address] Family Medicine 08/17/24 Exchange Specialist Relationship Specialty Start Date End Date Alfredo Duran MD [address] [place] [place] [address] PCP - General Family Medicine 08/17/24 Podlogar, FRED Dennis.STATISTICAL MACHINE MECHANIC [address] [place] [address] Family Medicine 08/17/24 Exchange Specialist Relationship Specialty Start Date End Date Alfredo Duran MD [address] [facility] [place] [address] PCP - General Family Medicine 08/17/24 Podlogar, MAGDI DennisN.STATISTICAL MACHINE MECHANIC [address] [place] [address] Family Medicine 08/17/24 Exchange Specialist Relationship Specialty Start Date End Date Ana Boateng CNP PCP - General Family Medicine 02/25/20 08/16/24 Alfredo Duran MD [address] [place] [address] PCP - General Family Medicine 08/17/24 Podlogar, Jeannie BOARD MEMBER.STATISTICAL MACHINE MECHANIC [address] [place] [address] Family Medicine 08/17/24 Podlogar, Jeannie BOARD MEMBER.STATISTICAL MACHINE MECHANIC [address] [place] [address] Medical Hospital Sales Family Medicine 08/23/24 Jasmina Leo APRN.STATISTICAL MACHINE MECHANIC [address] [facility] [place] [address] Medical Hospital Sales Family Medicine 08/23/24 Exchange Specialist Relationship Specialty Start Date End Date Alfredo Duran MD [address] [place] [address] PCP - General Family Medicine 08/17/24 Podlogar, Jeannie, BOARD MEMBER.STATISTICAL MACHINE MECHANIC [address] [place] [address] Family Medicine 08/17/24 Podlogar, Jeannie BOARD MEMBER.STATISTICAL MACHINE MECHANIC [address] [place] [address] Medical Hospital Sales Family Medicine 08/23/24 Jasmina Leo APRN.STATISTICAL MACHINE MECHANIC [address] [facility] [place] [address] Medical Hospital Sales Family Medicine 08/23/24 Exchange Specialist Relationship Specialty Start Date End Date Alfredo Duran MD [address] [place] [address] PCP - General Family Medicine 08/17/24 Podlogar, Jeannie, BOARD MEMBER.STATISTICAL MACHINE MECHANIC [address] [place] [address] Family Medicine 08/17/24 Podlogar, Jeannie, BOARD MEMBER.STATISTICAL MACHINE MECHANIC [address] [place] [address] Medical Hospital Sales Family Medicine 08/23/24 Jasmina Leo APRN.STATISTICAL MACHINE MECHANIC [address] [facility] [place] [address] Medical Hospital Sales Family Medicine 08/23/24 Exchange Specialist Relationship Specialty Start Date End Date Alfredo Duran MD [address] [place] [address] PCP - General Family Medicine 08/17/24 Podlogar, Jeannie, BOARD MEMBER.STATISTICAL MACHINE MECHANIC [address] [place] [address] Family Medicine 08/17/24 Podlogar, Jeannie, BOARD MEMBER.STATISTICAL MACHINE MECHANIC [address] [place] [address] Medical Hospital Sales Family Medicine 08/23/24 Jasmina Leo BOARD MEMBER.STATISTICAL MACHINE MECHANIC [address] [facility] [place] [address] [facility] 08/23/24 Exchange Specialist Relationship Specialty Start Date End Date Alfredo Duran MD [address] [place] [address] PCP - General Family Medicine 08/17/24 Podlogar, Jeannie, BOARD MEMBER.STATISTICAL MACHINE MECHANIC [address] [place] [address] Family Medicine 08/17/24 Podlogar, Jeannie, BOARD MEMBER.STATISTICAL MACHINE MECHANIC [address] [place] [address] Medical Hospital Sales Family Medicine 08/23/24 Exchange Specialist Relationship Specialty Start Date End Date Alfredo Duran MD [address] [facility] [place] [address] PCP - General Family Medicine 08/17/24 Podlogar, Jeannie, BOARD MEMBER.STATISTICAL MACHINE MECHANIC [address] [place] [address] Family Medicine 08/17/24 PodlogarJeannie APRN.STATISTICAL MACHINE MECHANIC [address] [place] [address] Medical Hospital Sales Family Medicine 08/23/24 Jasmina Leo APRN.STATISTICAL MACHINE MECHANIC [address] [facility] [place] [place] [address] Medical Hospital Sales Family Medicine 11/11/24 Exchange Specialist Relationship Specialty Start Date End Date Alfredo Duran MD [address] [place] [address] PCP - General Family Medicine 08/17/24 Podlogar, FRED Dennis.STATISTICAL MACHINE MECHANIC [address] [place] [address] Family Medicine 08/17/24 PodlogarJeannie APRN.STATISTICAL MACHINE MECHANIC [address] [place] [address] Medical Hospital Sales Family Medicine 08/23/24 Jasmina Leo APRN.STATISTICAL MACHINE MECHANIC [address] [facility] [place] [place] [address] Medical Hospital Sales Family Medicine 11/11/24 Exchange Specialist Relationship Specialty Start Date End Date Alfredo Duran MD [address] [place] [address] PCP - General Family Medicine 08/17/24 Podlogar, Jeannie, BOARD MEMBER.STATISTICAL MACHINE MECHANIC [address] [place] [address] Family Medicine 08/17/24 Podlogar, Jeannie BOARD MEMBER.STATISTICAL MACHINE MECHANIC [address] [place] [address] [facility] 08/23/24 Jasmina Leo, BOARD MEMBER.STATISTICAL MACHINE MECHANIC [address] [facility] [place] [place] [address] [facility] 11/11/24 Exchange Specialist Relationship Specialty Start Date End Date Alfredo Duran MD [address] [place] [address] PCP - General Family Medicine 08/17/24 Podlogar, Jeannie, BOARD MEMBER.STATISTICAL MACHINE MECHANIC [address] [place] [address] Family Medicine 08/17/24 Podlogar, Jeannie, BOARD MEMBER.STATISTICAL MACHINE MECHANIC [address] [place] [address] [facility] Medicine 08/23/24 Jasmina Leo, BOARD MEMBER.STATISTICAL MACHINE MECHANIC [address] [facility] [place] [address] [facility] 11/11/24 Exchange Specialist Relationship Specialty Start Date End Date Alfredo Duran MD [address] [place] [address] PCP - General Family Medicine 08/17/24 Podlogar, Jeannie, BOARD MEMBER.STATISTICAL MACHINE MECHANIC [address] [place] [address] Family Medicine 08/17/24 Jeannie Taylor APRN.STATISTICAL MACHINE MECHANIC [address] [facility], [place] [address] [facility] 08/23/24 Jasmina Leo APRN.STATISTICAL MACHINE MECHANIC [address] [facility], [place] [address] [facility] 11/11/24 Exchange Specialist Relationship Specialty Start Date End Date Alfredo Duran MD [address] [facility], [place] [address] PCP - General Family Medicine 08/17/24 Jeannie Taylor APRN.STATISTICAL MACHINE MECHANIC [address] [facility], [place] [address] Family Medicine 08/17/24 Jeannie Taylor APRN.STATISTICAL MACHINE MECHANIC [address] [facility], [place] [address] [facility] 08/23/24 Jasmina Leo APRN.STATISTICAL MACHINE MECHANIC [address] [facility], [place] [address] [facility] 11/11/24 FOR RECORDS PERTAINING TO PATIENTS WHO [...] BE BASED ON THE PRIMARY CLINICAL RECORDS. [employer] [facility]. provides no warranty or guarantee of the accuracy or completeness of information in this document.
[2025-02-20] MEDS: GLYCERIN/WITCH HAZEL (TUCKS) MED..PAD 1 EACH TOPICAL (14:28)
[2025-02-21 00:53] VITALS: BP 94/62; PULSE 77; RESP 15; TEMP 36.3; O2SAT 97
[2025-02-21 05:30] VITALS: BP 96/67; PULSE 68; RESP 18; TEMP 36.3; O2SAT 97
[2025-02-21 07:48] VITALS: BP 99/65; PULSE 60; RESP 16; TEMP 36.2; O2SAT 98
--- NOTE | 2025-02-21 08:28 | PCM.PN.OB ---
Subjective Subjective Doing well per patient and nursing staff. Ambulating and taking PO without difficulty. Voiding and passing flatus. Pain controlled. , services for assistance. Denies headache, visual changes, chest pain, shortness of breath, leg pain or increased bleeding. Lochia normal. Objective Data Objective Data Vital Signs: Vital Signs Temp Pulse Resp BP Pulse Ox O2 Del Method 97.1 F L 60 16 99/65 98 Room Air 02/21/25 07:48 02/21/25 07:48 02/21/25 07:48 02/21/25 07:48 02/21/25 07:48 02/21/25 07:48 Oxygen Delivery Method Room Air Weight: 150 lb 9.6 oz Body Mass Index (BMI) 26.6 Intake & Output: Intake and Output for Last 24 Hours 02/19/25 02/20/25 02/21/25 23:59 23:59 23:59 Intake Total 422.57 / 422.57 Output Total 657 / 657 Balance -234.43 / -234.43 Lab / Micro Data 02/20/25 02:15 ROS Constitutional Constitutional: Reports systems reviewed and no addt'l complaints, except as documented; Denies headache(s) Eyes Eyes: Denies acute decrease in peripheral vision, blurry vision or change in vision ENT HEENT: Reports systems reviewed and no addt'l complaints, except as documented Cardiovascular Cardiovascular: Denies chest pain or dizziness Respiratory/Chest Respiratory/Chest: Denies cough, dyspnea, dyspnea on exertion, shortness of breath at rest or shortness of breath with exertion Gastrointestinal Gastrointestinal: Denies abdominal pain, diarrhea, nausea or vomiting Genitourinary Genitourinary: Denies abdominal discomfort Musculoskeletal Musculoskeletal: Denies limited range of motion Integumentary Integumentary: Reports systems reviewed and no addt'l complaints, except as documented Neurologic Neurologic: Reports systems reviewed and no addt'l complaints, except as documented Psychiatric Psychiatric: Reports systems reviewed and no addt'l complaints, except as documented Endocrine Endocrinology: Reports systems reviewed and no addt'l complaints, except as documented Hematologic/Lymphatic Hematologic/Lymphatic: Reports systems reviewed and no addt'l complaints, except as documented Allergic/Immunologic Allergic/Immunologic: Reports systems reviewed and no addt'l complaints, except as documented Physical Exam Const alert and oriented x3 General Appearance: cooperative Orientation / Consciousness: awake, oriented to person, oriented to place and oriented to time Exam Limitations: no limitations HEENT normocephalic Head and Scalp: normal to inspection, normocephalic and atraumatic Face and Sinus: normal facial exam Eyes General Eye: normal appearance of both eyes Neck full ROM Chest Chest: symmetrical chest wall rise Resp normal respiratory effort and normal air movement Auscultation: clear to auscultation bilaterally Cardio regular rate, regular rhythm, S1 normal heart sound, S2 normal heart sound, no murmurs, no rub, no gallops and no clicks GI normal to inspection, nondistended, normoactive bowel sounds and non-tender GI Narrative: Fundus firm 2 below U appearance of the vagina normal Narrative: Normal lochia rubra Bladder / Kidney Exam: no CVA tenderness Back/Spine normal ROM Extremity normal to inspection and full ROM Skin no rashes or lesions noted Neuro oriented x3, CN's II-XII intact bilaterally and moves all extremities Sensorium / Orientation: awake, alert and oriented to person Motor Exam: clonus absent Deep Tendon Reflexes: Rt Patellar (L4): 2+ and Lt Patellar (L4): 2+ Assessment & Plan (1) (spontaneous vaginal delivery): (2) Lactating mother: PLAN: Plan 1) Routine care, PPD #1 2) Vitals signs stable 3) Pain controlled 4) , services PRN 5) D/C home 6) Follow up in 2 weeks and 6 weeks
--- NOTE | 2025-02-21 08:30 | PCM.DC.SUM ---
Providers Date of Admission: 02/20/25 Primary Care Physician: Geetha Primary Care Phys Reason For Visit: VAGINAL DELIVERY Diagnosis Discharge Diagnosis (1) (spontaneous vaginal delivery): Status: Acute Code(s): O80 - Encounter for full-term uncomplicated delivery (2) Lactating mother: Status: Acute Code(s): Z39.1 - Encounter for care and examination of lactating mother Plan 1) Routine care, PPD #1 2) Vitals signs stable 3) Pain controlled 4) , services PRN 5) D/C home 6) Follow up in 2 weeks and 6 weeks Medications at Discharge Home Medications folic acid 1 mg tablet 1 mg PO DAILY 02/19/25 acetaminophen 500 mg tablet 1,000 mg (2 x 500 mg) PO Q6H PRN PRN Pain 1-10 Or Fever #0 tabs 02/21/25 ibuprofen 600 mg tablet 600 mg PO Q6H PRN PRN Pain Score 1-10 #0 tabs 02/21/25 Hospital Course Summary of Care Provided Minutes Spent on Discharge: 15 Weight / BMI Weight Weight: 150 lb 9.6 oz Body Mass Index (BMI) 26.6 ABG / Lab / Microbiology Data 02/20/25 02:15 D/C Instructions Discharge Activity: Return to Normal Activity, May Drive, May Shower and May Take a Tub Bath May resume sexual activity in: 6 weeks Weight Bearing Status: Full weight bearing Call your doctor if you observe: Fever of 101 or Higher, Inability to urinate, Using more than 1 pad per hour, Shortness of breath, Chest pain, Increased palpitations (irregular heartbeat), Calf discomfort and Uncontrolled pain DC O2, CPAP, BIPAP Needs Home O2 Discharge instructions: No Please Follow Up With: Ethel Ruiz CNM When: 2 week virtual visit and 6 week visit Meaningful Use Info Meaningful Use Meaningful Use Diagnoses (Choose all that apply): None applicable Discharge Plan Admission Admit Date/Time: 02/20/25 02:00 Primary Reason for Your Visit: Vaginal Delivery Attending Provider: Ana Hilario Primary Care Provider: Meghana PhysicianGeetha Primary Discharge Orders/Prescriptions Prescriptions: New acetaminophen 500 mg Tablet 1,000 mg PO Q6H PRN PRN (Reason: Pain 1-10 Or Fever) Qty: 0 0RF ibuprofen 600 mg Tablet 600 mg PO Q6H PRN PRN (Reason: Pain Score 1-10) Qty: 0 0RF No Action folic acid 1 mg tablet 1 mg PO DAILY Referrals / Follow Up: Care Physician,No Primary [Primary Care Provider, Medical] Disposition Disposition (needs filled in before D/C Order can be placed): Home, Self Care
--- NOTE | 2025-02-21 11:16 | CASEMGMT ---
Social Work Assessment Labor and Delivery Unit Patient Address: [address] [place] [address] Phone number: [phone] Date of Referral: 02/21/25 Time of Referral:? 857 Referred By: Dr. Hilario Date of Intervention: ?02/21/25? Time of Intervention:? 944 Reason for Referral:? hx of anxiety Sw completed chart review and acknowledges social work consult due to maternal history of anxiety. Sw presented to bedside and introduced self to mother of baby (MOB- Ramona) and father of baby (FOB- Jair). Sw explained reason for sw involvement and completed psychosocial assessment,. History obtained from: medical records, MOB and FOB Household composition: Currently residing in the family home is RAYMOND ALVARADO, their two older children: Shameka (4) and Héctor (2). [place] baby to be included in residence when ready for discharge. Parents deny any housing concerns stating that where they live is safe and secure. Patient's parent/guardian status:? Parents intially met while both were employed at [employer]. They have been together for 14 years and will be celebrating their 8 year wedding anniversary tomorrow. baby is their third child together. No concerns reported of domestic violence or intimate partner violence. . ? Medical History: ?CHRISTIANO is 34 year old female who is 3, para 2- now 3 following labor and delivery of . CHRISTIANO received routine care during with [facility]. CHRISTIANO presented to hospital and delivered baby via vaginal delivery on 02/20/25 at 39 weeks gestation. Baby girl, named Elizabeth Graves, was born weighing 7lb 10oz and had apgars of 8 and 9 at one and five minutes of life, respectfully. CHRISTIANO is breast feeding and baby will be followed by Dr. Kramer for pediatrics. Educational Status:? MOB and FOB obtained their Bachelor's degrees, no problems with reading, learning or comprehension. Financial Status: Both parents are gainfully employed outside of the home. 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 Supplies:?? Parents have obtained all necessary baby supplies, including: car seat, safe sleep space, clothes, diapers and wipes. Childcare/Caregiver(s): Parents have arranged their work schedules so that one of them is always with their children and they do not rely on childcare services. ? Transportation:?? Both parents have their drivers license and reliable means of transportation, no barriers. Programs/Agencies Involved: Parents are over income for community resources that provide financial assistance. ??? Children Services/Legal Issues:??No history or involvement with Children Services, no issues or concerns warranting referral to be made at this time. ? Behavioral Health Issues: ??Mental Health History:??FOMagdaleno denies mental health history. MOB states that she has history of anxiety, but denies experiencing symptoms for several years. MOB states that the only anxiety symptoms she experienced during her were leading up to delivery and nervous about what delivery would be like. MOB reports that now that baby is here she feels like herself and denies feeling down, sad, anxious or overwhelmed. ? Substance Use History:?Parents deny substance use prior to and during . ? Family History:?Parents deny family history of substance use or significant mental health history. ? Drug Screens: ??No drug screens observed while completing chart review. Family/Social Stressors:? Parents deny any issues, concerns or stressors at this time. Support Systems: MOB states that RAYMOND is her biggest support, along with both sets of grandparents. Depression/Shaken Baby/Safe Sleeping:? Jaylan educated parents on signs and symptoms of baby blues and depression and anxiety. MOB states that she has always done well following her labor and deliveries. MOB states that she transitioned well to going from 1-2 children, and believes that transitioning this time from 2-3 will also go smoothly. 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 FOMagdaleno states that if CHRISTIANO were to struggle with her mental health during this period, he would be able to recognize that and would know how to help and support her. Jaylan educated parents on shaken baby prevention and ABCs of safe sleep. Parents express understanding. ASSESSMENT:? MOB and baby admitted following labor and delivery of . MOB familiar with sw from prior delivery. MOB with history of anxiety, however reports that she has not struggled with any symptoms of anxiety for quite some time. MOB denies requiring medication to help her manage her anxiety and denies being connected to any mental health community resources. MOB was observed sitting up in reclining chair and feeding baby, but was welcoming of meeting with sw and agreed to complete assessment at this time. FOB was observed sitting/ laying comfortably on couch and sat up when sw entered to be respectful and engaging in completion of assessment. MOB smiling and talkative, FOB more quiet but did participate in conversation. Parents observed to be supportive to one another and provided appropriate and attentive hands on care to . PLAN:? No other services requested or indicated. MOB and baby to be discharged when medically ready. Parents were provided literature regarding: signs and symptoms of baby blues and mood and anxiety disorders, Help Me Grow, shaken baby prevention, ABCs of safe sleep and a list of county resources that are available for them should any needs present themselves. Mina Patino, MICROFICHE CAMERA OPERATOR, ACQUISITIONS ANALYST
[2025-02-21 12:42] VITALS: BP 101/66; PULSE 72; RESP 16; O2SAT 99
== END 2025-02-21 13:00 | disposition home or self-care (01) | DRG 807 ==
LOC: WPOUT 02:07 → WP 04:02
PROVIDERS: Admitting Provider Obstetrics & Gynecology; Visit Provider Obstetrics & Gynecology
DX: O70.0 First degree perineal laceration during delivery (principal); Z37.0 Single live birth; Z3A.39 39 weeks gestation of pregnancy
CPT/HCPCS: 59025; 59050; 84112; 85025; 86780; 86850; 86900; 86901; 99221; A4216; G0378; J2405